=== PATIENT | male | born 1990 | race African-American/Black ===

== ENCOUNTER 2016-05-19 18:05 | Inpatient (IN) | payer MEDICARE, OTHER ==
[~2016-05-19] VITALS: Ht 162.6 cm; Wt 47.5 kg
[~2016-05-19 18:05] MED LIST: FISH1000 PO; FLAG250T PO; LAMI150 PO; LEVE500T10 PO; LEXI700T PO; RALTEGRAVIR PO; RANI150 PO; RITO100 PO; [UNRECOGNIZED DRUG - CODE] PO
[2016-05-19 18:10] VITALS: BP 135/72; PULSE 135; RESP 26; TEMP 98.8; O2SAT 98
[2016-05-19] MEDS ORDERED: ZIAG300T3 PO (18:19)
[2016-05-19] MEDS ORDERED: LAMI150 PO (18:19)
[2016-05-19] MEDS ORDERED: RITO100 PO (18:19)
[2016-05-19] MEDS ORDERED: FOSA PO (18:19)
[2016-05-19] MEDS ORDERED: LEVE500T8 PO (18:19)
[2016-05-19] MEDS ORDERED: SODIUM CHLOR 0.9% 1000 ML INJ 1,000 ML IV SCH (18:22)
--- NOTE | 2016-05-19 18:22 | PD ---
HPI Chief Complaint: Seizure Time Seen by Provider: 18:22 Travel History International Travel<30 days: No Contact w/Intl Traveler<30days: No Traveled to known affect area: No History of Present Illness HPI 25-year-old male presents to the emergency department via EMS after a witnessed seizure that lasted 5 minutes. Reports history of seizures. Per EMS the patient is a known FLAKKA user, per law enforcement. The patient is awake, alert, and oriented on arrival. He is restrained secondary to being combative on scene. Patient is HIV positive and has history of lymphoma. Patient denies drug use today. He reports smoking FLAKKA one week ago. He denies headache, lightheadedness, dizziness. Denies chest pain, shortness of breath, abdominal pain, nausea, vomiting. No other modifying factors or associated signs and symptoms. PFSH Past Medical History Autoimmune Disease: Yes Blood Disorders: Yes (bone marrow transplant) Anxiety: No Depression: No Cancer: Yes (HX OF LYMPHOMA) Cardiovascular Problems: No Chemotherapy: Yes Diminished Hearing: No Gastrointestinal Disorders: Yes Genitourinary: No Headaches: Yes Immune Disorder: Yes (HIV) Musculoskeletal: No Neurologic: Yes (siezures) Psychiatric: No Reproductive: No Respiratory: No Seizures: Yes Past Surgical History Abdominal Surgery: Yes (SPLEENECTOMY) AICD: No Arteriovenous Shunt: No Cardiac Surgery: No Ear Surgery: No Endocrine Surgery: No Eye Surgery: No Genitourinary Surgery: No Gynecologic Surgery: No Insulin Pump: No Joint Replacement: No Neurologic Surgery: No Oral Surgery: No Pacemaker: No Thoracic Surgery: No Other Surgery: Yes (BILATERAL LOWER LEG AND LEFT ARM AMPUTATION) Social History Alcohol Use: Yes (OCC) Tobacco Use: No Substance Use: Yes (SMOKES MARIJUANA, FLACCA) Allergies-Medications (Allergen,Severity, Reaction): Coded Allergies: Amoxicillin (Verified Allergy, Unknown, 05/19/16) Penicillin (Verified Allergy, Unknown, 05/19/16) Reported Meds & Prescriptions Reported Meds & Active Scripts Active Reported Norvir (Ritonavir) 100 Mg Cap 100 Mg PO BID Levetiracetam 500 Mg Tab 500 Mg PO DAILY Epivir (Lamivudine) 150 Mg Tab 150 Mg PO DAILY *Fill this 5 day prescription first and begin taking Epivir 12 hours after the first dose received in the Emergency Department as prescribed.* Lexiva (Fosamprenavir Calcium) 700 Mg Tab 1 Tab PO BID Ziagen (Abacavir Sulfate) 300 Mg Tab 300 Mg PO BID Hazardous agent; use appropriate precautions for handling & disposal. Review of Systems Except as stated in HPI: all other systems reviewed are Neg Physical Exam Narrative GENERAL: Well-nourished, well-developed male patient, in no acute distress SKIN: Warm and dry. HEAD: Atraumatic. Normocephalic. No facial droop noted. EYES: Pupils equal at 4 mm with brisk reaction. No scleral icterus. No injection or drainage. EOMI. PERRLA. ENT: Mucosa pink and moist. Airway patent. NECK: Trachea midline. CARDIOVASCULAR: Regular rate and rhythm. No murmur appreciated. RESPIRATORY: No accessory muscle use. Clear to auscultation. Breath sounds equal bilaterally. GASTROINTESTINAL: Abdomen soft, non-tender, nondistended. Hepatic and splenic margins not palpable. Bowel sounds are active 4 quadrants. MUSCULOSKELETAL: Partial amputation to bilateral lower extremities and left upper extremity. No obvious deformities. No clubbing. No cyanosis. No edema. NEUROLOGICAL: Awake and alert. Oriented 3. No obvious cranial nerve deficits. Motor grossly within normal limits. Normal speech. PSYCHIATRIC: Appropriate mood and affect; insight and judgment normal. Data Data Last Documented VS Vital Signs Date Time Temp Pulse Resp B/P Pulse Ox O2 Delivery O2 Flow Rate FiO2 05/19/16 21:42 102 18 151/81 99 Room Air 05/19/16 18:10 98.8 Orders Complete Blood Count With Diff (05/19/16 18:22) Basic Metabolic Panel (Bmp) (05/19/16 18:22) Alcohol (Ethanol) (05/19/16 18:22) Electrocardiogram (05/19/16 ) Ecg Monitoring (05/19/16 18:22) Iv Access Insert/Monitor (05/19/16 18:22) Oximetry (05/19/16 18:22) Sodium Chlor 0.9% 1000 Ml Inj (Ns 1000 M (05/19/16 18:22) Sodium Chloride 0.9% Flush (Ns Flush) (05/19/16 18:30) Restraints Violent (05/19/16 18:47) Creatine Kinase (Cpk) (05/19/16 20:36) Ct Brain W/O Iv Contrast(Rout) (05/19/16 ) Admit Order (Ed Use Only) (05/19/16 21:44) Admit To Inpatient (05/19/16 ) Vital Signs (Adult) Q4H (05/19/16 21:46) Neuro Checks Q4H (05/19/16 21:46) Activity Oob With Assistance (05/19/16 21:46) Mission Planner / Telemetry .CONTINUOUS (05/19/16 21:46) Sodium Chlor 0.9% 1000 Ml Inj (Ns 1000 M (05/19/16 21:46) Sodium Chloride 0.9% Flush (Ns Flush) (05/19/16 22:00) Sodium Chloride 0.9% Flush (Ns Flush) (05/20/16 09:00) Basic Metabolic Panel (Bmp) (05/20/16 06:00) Complete Blood Count With Diff (05/20/16 06:00) Resp Oxygen Johnny C Titrat 1-4 L (05/19/16 ) Case Management Consult (05/19/16 21:46) Naloxone Inj (Narcan Inj) (05/19/16 22:00) Inpatient Certification (05/19/16 ) Labs Laboratory Tests Test 05/19/16 18:31 White Blood Count 11.8 TH/MM3 Red Blood Count 4.10 MIL/MM3 Hemoglobin 10.4 GM/DL Hematocrit 34.5 % Mean Corpuscular Volume 84.2 FL Mean Corpuscular Hemoglobin 25.2 PG Mean Corpuscular Hemoglobin 30.0 % Concent Red Cell Distribution Width 14.6 % Platelet Count 284 TH/MM3 Mean Platelet Volume 10.3 FL Neutrophils (%) (Auto) 50.6 % Lymphocytes (%) (Auto) 39.0 % Monocytes (%) (Auto) 8.4 % Eosinophils (%) (Auto) 1.3 % Basophils (%) (Auto) 0.7 % Neutrophils # (Auto) 6.0 TH/MM3 Lymphocytes # (Auto) 4.6 TH/MM3 Monocytes # (Auto) 1.0 TH/MM3 Eosinophils # (Auto) 0.2 TH/MM3 Basophils # (Auto) 0.1 TH/MM3 CBC Comment DIFF FINAL Differential Comment Sodium Level 137 MEQ/L Potassium Level 3.3 MEQ/L Chloride Level 103 MEQ/L Carbon Dioxide Level 8.9 MEQ/L Anion Gap 25 MEQ/L Blood Urea Nitrogen 40 MG/DL Creatinine 5.83 MG/DL Estimat Glomerular Filtration 14 ML/MIN Rate Random Glucose 256 MG/DL Calcium Level 8.9 MG/DL Ethyl Alcohol Level LESS THAN 3 MG/DL MDM Medical Decision Making Medical Screen Exam Complete: Yes Emergency Medical Condition: Yes Medical Record Reviewed: Yes Differential Diagnosis Seizure, drug induced seizure, drug overdose Narrative Course 25-year-old male with history of seizures arrives via EMS after a witnessed seizure lasting approximately 5 minutes. Patient has known history of FLAKKA use and he denies at this time. Patient is alert and oriented to time of arrival. He was administered a total of 4 mg of Ativan or to arrival. 2016: CBC was signs of anemia consistent with passed laboratory findings. Potassium 3.3. Carbon dioxide point 8.9. BUN 40. Creatinine 5.83. GFR 14. Random glucose 256. Ethyl alcohol less than 3. I reviewed lab findings with Dr. Gee and she recommended for the patient to be admitted for observation if the patient agrees, and to draw CPK. CPK ordered. Patient agrees to be admitted. Call out to ROBYN. [id number]: I spoke with ROBYN Mane; report given and patient will be admitted. Diagnosis Primary Impression: Seizure disorder Additional Impression: Acute renal failure Qualified Code: N17.9 - Acute renal failure, unspecified acute renal failure type Admitting Information Admitting Physician Requests: Admit Isabel Vogel May 19, 2016 18:22
[2016-05-19] MEDS ORDERED: SODIUM CHLORIDE 0.9% FLUSH 5 ML FLUSH IVF PRN (18:30)
[2016-05-19 19:06] LABS: ANION GAP 25 MEQ/L (5-15); BICARBONATE 8.9 MEQ/L (21.0-32.0); BLOOD UREA NITROGEN 40 MG/DL (7-18); CHLORIDE 103 MEQ/L (98-107); GLOMERULAR FILTRATION RATE 14 ML/MIN (>89); POTASSIUM 3.3 MEQ/L (3.5-5.1); SODIUM (NA) 137 MEQ/L (136-145)
[2016-05-19 19:07] VITALS: BP 111/63; PULSE 113; RESP 20; O2SAT 95
[2016-05-19 19:09] LABS: BASOPHIL # 0.1 TH/MM3 (0-0.2); BASOPHIL % 0.7 % (0.0-2.0); EOSINOPHIL # 0.2 TH/MM3 (0-0.4); EOSINOPHIL % 1.3 % (0.0-4.0); HEMATOCRIT 34.5 % (39.0-51.0); HEMO FLAGS DIFF FINAL; LYMPHOCYTE # 4.6 TH/MM3 (1.0-4.8); MEAN CELL VOLUME 84.2 FL (80.0-100.0); MEAN CORPUSCULAR HEMOGLOBIN 25.2 PG (27.0-34.0); MONO % 8.4 % (0.0-8.0); NEUT % 50.6 % (16.0-70.0); PLATELET COUNT 284 TH/MM3 (150-450); RED CELL DISTRIBUTION WIDTH 14.6 % (11.6-17.2); WHITE BLOOD COUNT 11.8 TH/MM3 (4.0-11.0)
[2016-05-19 21:42] VITALS: BP 151/81; PULSE 102; RESP 18; O2SAT 99
[2016-05-19 22:00] VITALS: O2SAT 97
[2016-05-19] MEDS ORDERED: SODIUM CHLORIDE 0.9% FLUSH 5 ML FLUSH FLUSH PRN (22:00)
[2016-05-19] MEDS ORDERED: NALOXONE HCL 0.4 MG/ML AMP IV PRN (22:00)
[2016-05-19] MEDS: SODIUM CHLOR 0.9% 1000 ML INJ 1,000 ML IV SCH (22:28)
--- NOTE | 2016-05-19 23:19 | RADRPT ---
EXAM DATE/TIME: 05/19/2016 22:54 [facility] COMPARISON: CT BRAIN W/O CONTRAST, November 14, 2015, 21:58. INDICATIONS : Seizures. RADIATION DOSE: 36.54 CTDIvol (mGy) MEDICAL HISTORY : None SURGICAL HISTORY : None. ENCOUNTER: Initial ACUITY: 1 day PAIN SCALE: 5/10 LOCATION: cranial TECHNIQUE: Multiple contiguous axial images were obtained of the head. Using automated exposure control and adj ustment of the mA and/or kV according to patient size, radiation dose was kept as low as reasonably a chievable to obtain optimal diagnostic quality images. FINDINGS: CEREBRUM: The ventricles are normal for age. No evidence of midline shift, mass lesion, hemorrhage or acute in farction. No extra-axial fluid collections are seen. POSTERIOR FOSSA: The cerebellum and brainstem are intact. The 4th ventricle is midline. The cerebellopontine angle i s unremarkable. EXTRACRANIAL: The visualized portion of the orbits is intact. SKULL: The calvaria is intact. No evidence of skull fracture. CONCLUSION: No acute disease. Torito English MD on May 19, 2016 at 23:17 Board Certified Radiologist. This report was verified electronically.
[2016-05-19 23:27] LABS: CKMB 1.3 NG/ML (0.5-3.6)
[2016-05-20] VITALS (12 sets, daily range): BP systolic 107–148; BP diastolic 66–89; PULSE 73–106; RESP 18; TEMP 97.1–98.8; O2SAT 92–100
[2016-05-20] MEDS ORDERED: ACETAMINOPHEN 325 MG TAB PO ONE (02:45)
[2016-05-20] MEDS ORDERED: POTASSIUM CHLORIDE 20 MEQ CONTROLLED RELEASE TAB PO ONE (03:00)
--- NOTE | 2016-05-20 05:53 | HHI.HP ---
HPI Service [facility] Primary Care Physician Seu Olivas MD Admission Diagnosis SEIZURES, ELEVATED BUN/CR Diagnoses: (1) Seizure disorder (2) Rhabdomyolysis (3) Acute on chronic renal failure (4) Anemia of chronic illness (5) Leukocytosis (6) Hypokalemia Chief Complaint: Seizure activity Travel History International Travel<30 Days: No Contact w/Intl Traveler <30 Da: No Traveled to Known Affected Are: No History of Present Illness Mr. Yu is a 25 year-old male with a history of lymphoma, HIV, CKD, and seizures who presented to the emergency room for evaluation of a witnessed seizure that lasted about [address] is negative for acute disease. Multiple electrolyte abnormalities noted on blood work. He is admitted for observation. The patient is seen in his hospital room; he states that he was walking to the store and had a seizure. Last seizure occurred about a year ago. He adamantly denies Flakka use and states he is angry that anybody suggests he has ever done anything like that. Sterling through this interview, he shuts down and stops talking and covers his head with a blanket. Patient denies dizziness, shortness of breath, chest pain, syncope, black or tarry stools, diarrhea, nausea, vomiting, hematuria, dysuria. . 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 Reported Medications Reported Meds & Active Scripts Active Reported Norvir (Ritonavir) 100 Mg Cap 100 Mg PO BID Levetiracetam 500 Mg Tab 500 Mg PO DAILY Epivir (Lamivudine) 150 Mg Tab 150 Mg PO DAILY *Fill this 5 day prescription first and begin taking Epivir 12 hours after the first dose received in the Emergency Department as prescribed.* Lexiva (Fosamprenavir Calcium) 700 Mg Tab 1 Tab PO BID Ziagen (Abacavir Sulfate) 300 Mg Tab 300 Mg PO BID Hazardous agent; use appropriate precautions for handling & disposal. . Allergies: Coded Allergies: Amoxicillin (Verified Allergy, Unknown, 05/19/16) Penicillin (Verified Allergy, Unknown, 05/19/16) Active Ordered Medications Current Medications Sodium Chloride (NS 1000 ml Inj) 1,000 ml @ 1,000 mls/hr Q1H IV Last administered on 05/19/16 18:36; Start 05/19/16 at 18:22; Stop 05/19/16 at 19:21 ; Status DC IV Flush 2 ml 2 ml UNSCH PRN IVF FLUSH AFTER USING IV ACCESS; Start 05/19/16 at 18:30; Stop 05/19/16 at 21:52; Status DC Sodium Chloride (NS 1000 ml Inj) 1,000 ml @ 100 mls/hr Q10H IV Last administered on 05/19/16 22:28; Start 05/19/16 at 21:46 IV Flush (NS Flush) 2 ml UNSCH PRN FLUSH FLUSH AFTER USING IV ACCESS; Start at 22:00 IV Flush (NS Flush) 2 ml BID FLUSH ; Start 05/20/16 at 09:00 Naloxone HCl (Narcan Inj) 0.4 mg UNSCH PRN IV SEE LABEL COMMENTS; Start at 22:00 Levetriacetam (Keppra) 500 mg DAILY PO ; Start 05/20/16 at 09:00 Acetaminophen (Tylenol) 650 mg ONCE ONCE PO Last administered on 05/20/16 02: 52; Start 05/20/16 at 02:45; Stop 05/20/16 at 02:46; Status DC Lorazepam (Ativan Inj) 1 mg Q15M PRN IV PUSH sezirue; Start 05/20/16 at 03:00 Potassium Chloride (KCl) 20 meq ONCE ONCE PO Last administered on 05/20/16 02 :57; Start 05/20/16 at 03:00; Stop 05/20/16 at 03:01; Status DC . Family History Mother from leukemia, AIDS Fathers history is unknown Siblings are healthy and living . Social History Tobacco: Denies Alcohol: Occasional - a couple of beer occasionally Illicit Drugs: Marijuana and Flakka (per EMR) - patient denies any illicit drug use during our visit . Physical Exam Vital Signs Vital Signs Date Time Temp Pulse Resp B/P Pulse Ox O2 Delivery O2 Flow Rate FiO2 05/20/16 04:00 97.7 73 18 107/69 100 05/20/16 02:10 97.7 78 18 111/66 98 05/20/16 02:04 98 05/20/16 01:20 106 18 148/78 99 Room Air 05/19/16 22:00 97 05/19/16 21:42 102 18 151/81 99 Room Air 05/19/16 19:07 113 20 111/63 95 Room Air 05/19/16 18:10 98.8 135 26 135/72 98 Physical Exam GENERAL: This is a small, thin patient, who appears guarded in general in his interactions with examiner. Ammonia smell in room. SKIN: No rashes, ecchymoses. Cool and dry. HEAD: Atraumatic. Normocephalic. EYES: No scleral icterus. No injection or drainage. ENT: Nose without bleeding, purulent drainage. NECK: Trachea midline. CARDIOVASCULAR: Regular rate and rhythm without murmurs, gallops, or rubs. RESPIRATORY: Clear to auscultation. Breath sounds equal bilaterally. No wheezes , rales, or rhonchi. GASTROINTESTINAL: Abdomen soft, non-tender, nondistended. No guarding. MUSCULOSKELETAL: Bilateral below the knee amputations. Left below the elbow amputation. NEUROLOGICAL: Awake and alert. Motor and sensory grossly within normal limits. Normal speech. . Laboratory Laboratory Tests Test 05/19/16 05/19/16 18:31 21:35 White Blood Count 11.8 Red Blood Count 4.10 Hemoglobin 10.4 Hematocrit 34.5 Mean Corpuscular Volume 84.2 Mean Corpuscular Hemoglobin 25.2 Mean Corpuscular Hemoglobin 30.0 Concent Red Cell Distribution Width 14.6 Platelet Count 284 Mean Platelet Volume 10.3 Neutrophils (%) (Auto) 50.6 Lymphocytes (%) (Auto) 39.0 Monocytes (%) (Auto) 8.4 Eosinophils (%) (Auto) 1.3 Basophils (%) (Auto) 0.7 Neutrophils # (Auto) 6.0 Lymphocytes # (Auto) 4.6 Monocytes # (Auto) 1.0 Eosinophils # (Auto) 0.2 Basophils # (Auto) 0.1 CBC Comment DIFF FINAL Differential Comment Sodium Level 137 Potassium Level 3.3 Chloride Level 103 Carbon Dioxide Level 8.9 Anion Gap 25 Blood Urea Nitrogen 40 Creatinine 5.83 Estimat Glomerular Filtration 14 Rate Random Glucose 256 Calcium Level 8.9 Ethyl Alcohol Level LESS THAN 3 Total Creatine Kinase 2646 Creatine Kinase MB 1.3 Creatine Kinase MB % 0.0 Result Diagram: 05/19/16 1831 05/19/16 1831 Imaging Last Impressions Head CT 05/19/16 2310 Signed Impressions: Service Date/Time: Thursday, May 19, 2016 22:54 - CONCLUSION: No acute disease. Torito English MD . Assessment and Plan Problem List: (1) Seizure disorder ICD Code: 780.39 Status: Chronic (2) Rhabdomyolysis ICD Code: M62.82 Status: Acute (3) Acute on chronic renal failure ICD Code: N17.9 Status: Acute (4) Anemia of chronic illness ICD Code: D63.8 Status: Chronic (5) Leukocytosis ICD Code: D72.829 Status: Chronic (6) Hypokalemia ICD Code: E87.6 Status: Acute Assessment and Plan Mr. Yu is a 25 year-old male with a history of lymphoma, HIV, CKD, and seizures who presented to the emergency room for evaluation of a witnessed seizure that lasted about [address] is negative for acute disease. Multiple electrolyte abnormalities noted on blood work. He is admitted for observation. Seizure disorder - continue Keppra 500 mg daily - Ativan 1 mg IV every 15 minutes as needed for seizure - Seizure precautions - Blood ETOH < 3 - Neurochecks every 4 hours - Vital signs every 4 hours - Consult neurology Rhabdomyolysis - CK 2646 - IV fluid hydration - Will recheck in a.m. and follow trends in levels Acute on chronic renal failure - BUN elevated at 40, creatinine high at 5.83, estimated GFR low at 14 - Normal saline at 100 cc per hour - Repeat BMP in a.m. and follow trends in renal indices - Avoid nephrotoxins - Consult nephrology Anemia, related to chronic illness - Hemoglobin 10.4 and hematocrit 34.5 on admission - Hemoglobin appears stable when compared to other hospital visits - Recheck CBC in a.m. and follow trends Leukocytosis chronic - Admission WBC 11.8 with neutrophilia- stable when compared to other hospital visits - Recheck CBC in a.m. and follow trends Hypokalemia - Admission potassium is 3.3 - KCl 20 meq x one dose - Recheck BMP in a.m.; follow K+ level and replace as needed DVT prophylaxis Heparin 5000 units subq q8h Written by Ann Morales, acting as scribe for Dr. Bedoya on 05/20/16 at 05:45. .The documentation accurately reflects the work performed [id number] by me on 05/20/16 at 0545 Discussed Condition With ER physician, patient, and RN Physician Certification 2 Midnight Certification Type: Admission for Inpatient Services Order for Inpatient Services The services are ordered in accordance with Medicare regulations or non- Medicare payer requirements, as applicable. In the case of services not specified as inpatient-only, they are appropriately provided as inpatient services in accordance with the 2-midnight benchmark. Estimated LOS (days): 3 days is the estimated time the patient will need to remain in the hospital, assuming treatment plan goals are met and no additional complications. Post-Hospital Plan: Not yet determined Ann Morales May 20, 2016 05:53 Unique Bedoya MD May 20, 2016 08:42
[2016-05-20 07:34] LABS: AUTOMATED NEUTROPHIL # 10.7 TH/MM3 (1.8-7.7); BASOPHIL # 0.1 TH/MM3 (0-0.2); BASOPHIL % 0.6 % (0.0-2.0); EOSINOPHIL # 0.1 TH/MM3 (0-0.4); EOSINOPHIL % 0.5 % (0.0-4.0); HEMATOCRIT 30.8 % (39.0-51.0); LYMPH % 23.1 % (9.0-44.0); LYMPHOCYTE # 3.6 TH/MM3 (1.0-4.8); MEAN CELL VOLUME 80.7 FL (80.0-100.0); MEAN CORPUSCULAR HEMOGLOBIN 24.8 PG (27.0-34.0); MEAN CORPUSCULAR HGB CONC 30.8 % (32.0-36.0); MONO % 7.6 % (0.0-8.0); NEUT % 68.2 % (16.0-70.0); PLATELET COUNT 275 TH/MM3 (150-450); RED BLOOD COUNT 3.82 MIL/MM3 (4.50-5.90); RED CELL DISTRIBUTION WIDTH 14.1 % (11.6-17.2); WHITE BLOOD COUNT 15.7 TH/MM3 (4.0-11.0)
[2016-05-20 07:46] LABS: HEMO FLAGS AUTO DIFF
[2016-05-20 08:21] LABS: BICARBONATE 20.7 MEQ/L (21.0-32.0); POTASSIUM 3.5 MEQ/L (3.5-5.1)
[2016-05-20 08:44] LABS: CKMB 4.6 NG/ML (0.5-3.6)
[2016-05-20] MEDS ORDERED: levETIRAcetam 500 MG TAB PO SCH ×2 (09:00→21:00)
[2016-05-20 09:10] LABS: ACANTHOCYTES OCC (NORMAL); OVALOCYTES 1+ (NORMAL); TARGET CELLS 1+ (NORMAL)
[2016-05-20 09:11] LABS: PLATELET ESTIMATE SMEAR NORMAL (NORMAL); PLATELET MORPHOLOGY NORMAL (NORMAL); SCAN/DIFF AUTO DIFF CONFIRMED
[2016-05-20 09:15] LABS: ANION GAP 15 MEQ/L (5-15); AST (GOT) 52 U/L (15-37); BICARBONATE 16.7 MEQ/L (21.0-32.0); BLOOD UREA NITROGEN 38 MG/DL (7-18); CHLORIDE 108 MEQ/L (98-107); GLOMERULAR FILTRATION RATE 17 ML/MIN (>89); MAGNESIUM 2.7 MG/DL (1.5-2.5); POTASSIUM 3.5 MEQ/L (3.5-5.1); SODIUM (NA) 140 MEQ/L (136-145)
--- NOTE | 2016-05-20 09:21 | HHI.PR ---
Subjective Remarks f/u; seizure resting comfortably with no distress. denies pain. Objective Vitals Vital Signs Date Time Temp Pulse Resp B/P Pulse Ox O2 Delivery O2 Flow Rate FiO2 05/20/16 08:00 98.6 101 18 125/86 92 05/20/16 04:00 97.7 73 18 107/69 100 05/20/16 02:10 97.7 78 18 111/66 98 05/20/16 02:04 98 05/20/16 01:20 106 18 148/78 99 Room Air 05/19/16 22:00 97 05/19/16 21:42 102 18 151/81 99 Room Air 05/19/16 19:07 113 20 111/63 95 Room Air 05/19/16 18:10 98.8 135 26 135/72 98 I/O 05/19/16 05/19/16 05/19/16 05/20/16 05/20/16 05/20/16 07:00 15:00 23:00 07:00 15:00 23:00 Intake Total 200 ml 241 ml Output Total 300 ml Balance -100 ml 241 ml Intake Oral 200 ml IV Total 241 ml Output Urine Total 300 ml Result Diagram: 05/20/16 0615 05/20/16 0615 Imaging Last Impressions Head CT 05/19/16 2310 Signed Impressions: Service Date/Time: Thursday, May 19, 2016 22:54 - CONCLUSION: No acute disease. Torito English MD Objective Remarks GENERAL: This is a well-nourished, well-developed patient, in no apparent distress. CARDIOVASCULAR: Regular rate and irregular rhythm without murmurs, gallops, or rubs. RESPIRATORY: Clear to auscultation. Breath sounds equal bilaterally. No wheezes , rales, or rhonchi. GASTROINTESTINAL: Abdomen soft, non-tender, nondistended. Normal, active bowel sounds MUSCULOSKELETAL: s/p bilateral BKA NEURO: Alert & Oriented x4 to person, place, time, situation. Moves all ext x4 Procedures none Medications and IVs Current Medications Sodium Chloride (NS 1000 ml Inj) 1,000 ml @ 1,000 mls/hr Q1H IV Last administered on 05/19/16t 18:36; Start 05/19/16 at 18:22; Stop 05/19/16 at 19:21 ; Status DC IV Flush 2 ml 2 ml UNSCH PRN IVF FLUSH AFTER USING IV ACCESS; Start 05/19/16 at 18:30; Stop 05/19/16 at 21:52; Status DC Sodium Chloride (NS 1000 ml Inj) 1,000 ml @ 100 mls/hr Q10H IV Last administered on 05/19/16 22:28; Start 05/19/16 at 21:46 IV Flush (NS Flush) 2 ml UNSCH PRN FLUSH FLUSH AFTER USING IV ACCESS; Start at 22:00 IV Flush (NS Flush) 2 ml BID FLUSH ; Start 05/20/16 at 09:00 Naloxone HCl (Narcan Inj) 0.4 mg UNSCH PRN IV SEE LABEL COMMENTS; Start at 22:00 Levetriacetam (Keppra) 500 mg DAILY PO ; Start 05/20/16 at 09:00 Acetaminophen (Tylenol) 650 mg ONCE ONCE PO Last administered on 05/20/16 02: 52; Start 05/20/16 at 02:45; Stop 05/20/16 at 02:46; Status DC Lorazepam (Ativan Inj) 1 mg Q15M PRN IV PUSH sezirue; Start 05/20/16 at 03:00 Potassium Chloride (KCl) 20 meq ONCE ONCE PO Last administered on 05/20/16 02 :57; Start 05/20/16 at 03:00; Stop 05/20/16 at 03:01; Status DC Heparin Sodium (Porcine) (Heparin Inj) 5,000 units Q8H SQ ; Start 05/20/16 at 08 :00 A/P Assessment and Plan A/P Seizure disorder - continue Keppra 500 mg daily - Ativan 1 mg IV every 15 minutes as needed for seizure - Seizure precautions - Neuro checks every 4 hours - Vital signs every 4 hours - Consulted neurology Rhabdomyolysis - continue IV fluid hydration - Will recheck in a.m. and follow trends in levels Acute on chronic renal failure - Normal saline at 125 cc per hour - Repeat BMP in a.m. and follow trends in renal indices - Avoid nephrotoxins - Consulted nephrology Anemia, related to chronic illness - Hemoglobin appears stable when compared to other hospital visits - Recheck CBC in a.m. and follow trends Leukocytosis chronic - Recheck CBC in a.m. and follow trends Hypokalemia -replaced - Recheck BMP in a.m.; follow K+ level and replace as needed DVT prophylaxis Heparin 5000 units subq q8h Amy Singh MD May 20, 2016 09:21
[2016-05-20 09:24] LABS: ALKALINE PHOSPHATASE 73 U/L (45-117); ALT (GPT) 26 U/L (12-78); TOTAL BILIRUBIN ADULT 0.2 MG/DL (0.2-1.0)
[2016-05-20] MEDS: HEPARIN SODIUM - SQ 10,000 UNITS/ML VIAL SQ SCH ×2 (09:52→16:52)
[2016-05-20] MEDS: SODIUM CHLORIDE 0.9% FLUSH 5 ML FLUSH FLUSH SCH ×2 (09:52→21:00)
--- NOTE | 2016-05-20 12:20 | MB ---
cc: ELVI ISSA MD DATE OF CONSULTATION: 05/20/2016 REASON FOR CONSULTATION Breakthrough seizure. HISTORY OF PRESENT ILLNESS Mr. Yu is a 25-year-old -[place] male with past medical history of seizures. He had sustained a breakthrough witnessed seizure lasting approximately 5 minutes as per the ER records. He has known history of flakka use. The patient's last seizure was about a year ago. During the encounter he was trying to avoid talking to me and then he stopped talking and covers his head with the blanket and turns his back to me, but he states that he has no family history of seizure and he has diagnosed with seizures when he was about 14 years of age and he is on Keppra, not certain about the dose. He has bilateral amputation of the lower extremities and left upper extremity. REVIEW OF SYSTEMS A 12-point review of systems is negative except for what is mentioned in the HPI. PAST MEDICAL HISTORY 1. Non-Hodgkin's lymphoma, status post bone marrow transplantation and chemotherapy, diagnosed at the age of 8 years. 2. HIV, perinatally acquired. 3. Seizures. 4. History of meningitis. 5. History of septic shock with profound necrosis of extremities. 6. Chronic anemia. 7. Hyperlipidemia. 8. CKD. PAST SURGICAL HISTORY 1. Bilateral BKA. 2. Left arm amputation below elbow. MEDICATIONS 1. Norvir. 2. Keppra 500 mg twice daily. 3. Epivir. 4. Lexiva. 5. Ziagen. ALLERGIES 1. AMOXICILLIN. 2. PENICILLIN. FAMILY HISTORY Mother of leukemia and AIDS. Father's history is unknown. Siblings are healthy and living. SOCIAL HISTORY Denies tobacco. Occasional alcohol use. Illicit drugs: Marijuana and flakka per the medical records. PHYSICAL EXAMINATION GENERAL: The patient tries to avoid interaction during the encounter. HEENT: Atraumatic, normocephalic. Intact hearing. Intact vision. NECK: Trachea in the midline. No carotid bruit. HEART: Regular rate and rhythm. LUNGS: Clear to auscultation. No wheezes. EXTREMITIES: Bilateral below-knee amputation, left below-elbow amputation. NEUROLOGIC: Awake, alert, oriented to time, person and place. Pupils are equally reacting to light. Intact extraocular motility. Fluent speech. No dysarthria. Assessment of the motor function can only be obtained on the right upper extremity because of the amputation of the three other extremities. Sensation is intact over the right upper extremity and the other extremities. Intact cerebellar function on the right upper extremity. Neck supple. No signs of meningeal irritation. LABORATORY White blood cell count 15.7, hemoglobin 9.5, platelet count 275. Ethyl alcohol less than 3.Sodium 137, potassium 3.5, BUN 38, creatinine 5.18, calcium 8.3.Total CK 6841. IMAGING - Head CT scan with no acute intracranial abnormality. DIAGNOSTIC IMPRESSION 1. Seizure disorder with breakthrough seizures. 2. Rhabdomyolysis. 3. Acute on chronic renal failure. 4. Hypokalemia. 5. History of meningitis. 6. 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 7. Non-Hodgkin's lymphoma. 8. HIV. PLAN 1. Continue Keppra 500 mg twice daily. 2. Seizure precautions. 3. Ativan 1 mg for seizures lasting more than 3 minutes. 4. Neuro-checks q.4 hourly. 5. EEG. Thank you for the opportunity to participate in the care of your patient. MD KALEY Leggett/DARY /9:35 AM /12:03 PM MTDD
--- NOTE | 2016-05-20 16:37 | EKG ---
Date Performed: 05/19/2016 Time Performed: 18:38:43 PTAGE: 25 years EKG: SINUS TACHYCARDIA VOLTAGE CRITERIA FOR LVH NONSPECIFIC T-WAVE ABNORMALITY Since previous tr acing, no significant change noted ABNORMAL ECG PREVIOUS TRACING : 11/29/2008 09.03 DOCTOR: Chuy Zepeda Interpretating Date/Time 05/20/2016 16:36:54
--- NOTE | 2016-05-20 18:51 | MB ---
cc: DIONTE ABERNATHY MD DATE OF CONSULTATION 05/20/16 REASON FOR CONSULTATION Elevated BUN and creatinine for evaluation. HISTORY OF PRESENT ILLNESS This is a 25-year-old male with past medical history of peripheral vascular disease, history of HIV, lymphoma, chronic kidney disease, seizure disorder who was admitted to the hospital with seizure. I was called to see the patient because of elevated BUN and creatinine. The patient has known history of chronic kidney disease. His creatinine was 3.7 in October of last year and he off and on has acute kidney injury. 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 As per patient, he is just following with Dr. ZUNIGA, infectious disease, for his HIV. The patient has history of seizure and he was admitted for an episode of seizure which was witnessed and lasted for five minutes. The patient has been seen by neurology. He denies any nausea or vomiting. There is no history of diarrhea. He denies any dysuria, hematuria. The patient has a history of losing both his legs and left arm and this all happened in 2002. According to him, he had some kind of circulation problem at that time. She denies using any drugs, but in his history it is written that he has been using marijuana and Flakka off and on. His creatinine was found to be 5.8 and it is 5.1 now with a GFR of 16-17. He had some headache before he got the seizure. He denies any dizziness and does not have any shortness of breath. PAST MEDICAL HISTORY 1. HIV 2. History of lymphoma 3. Seizure disorder, 4. Chronic kidney disease, 5. Chronic anemia, 6. Peripheral vascular disease 7. History of non-Hodgkin's lymphoma with bone marrow transplant. PAST SURGICAL HISTORY Bilateral below-knee amputation, left arm below-elbow amputation. REVIEW OF SYSTEMS Denies any history of fever. He had some headache before he got the seizure. There is no history of dizziness. No shortness of breath. No chest pain. No palpitation. When he has seizure, he lost consciousness for a few minutes. He denies any history of diarrhea. No dysuria, hematuria or difficulty in passing urine. FAMILY HISTORY The mother in early 40s, possibly had AIDS and leukemia. Father's history is not known. According to the patient, his brothers and sisters are all healthy and normal. SOCIAL HISTORY Lives with his grandmother and occasionally drinks beer. There is no history of smoking, but according to the chart he has been using marijuana and Flakka. ALLERGIES AMOXICILLIN PENICILLIN MEDICATIONS Currently, 1. IV fluid Normal saline AT 125 an hour. 2. Keppra 500 mg once a day. 3. Heparin 5000 units subcu 8 h 4. 81 as needed. PHYSICAL EXAMINATION GENERAL: The patient is awake, alert. He is not in acute distress. VITAL SIGNS: Blood pressure 130/80, temperature 97.1, oxygen saturation 96-97%. HEENT: Pupils equally reacting to light. Nonicteric sclerae, conjunctivae pale. NECK: Supple. JVD is not elevated. LUNGS: The patient has bilateral good air entry. No wheezing. HEART: S1, S2, regular rhythm. ABDOMEN: Soft, lax, slightly distended, nontender. EXTREMITIES: He has both below-knee amputation and left arm he has below elbow amputation. LABORATORY DATA WBC count is 15.7, hemoglobin 9.5, platelet count of 275, neutrophils 68.2%, sodium 137. Potassium 3.5, chloride 105, bicarb 20.7, BUN 38, creatinine 5.1. Calcium is 8.3. Magnesium is 2.7, AST is 52, ALT is 26, creatinine kinase is 6841, MB is 4.6, INR is 0.9. Urinalysis none done recently. Toxicology screen showing Urecholine level was less than three. His last CD-4 cell count was 451 but this was in 2014. IMAGING STUDIES The patient had CT scan of the brain done on admission and it shows that he has no acute disease. ASSESSMENT/PLAN 1. Seizure. 2. Chronic kidney disease, advanced renal failure 3. HIV 4. Anemia. 5. History of lymphoma and bone marrow transplant 6, Elevated CPK, rhabdomyolysis. The patient has a very high CPK level and it has been increasing. 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 He had some proteinuria in the past. I will recheck his urinalysis, get the ultrasound of the kidneys. I agree with continuing the hydration. There is possibly an element of acute kidney injury because of rhabdomyolysis and hopefully we will have some improvement. I did discuss with the patient about the possibility of dialysis if we do not see any improvement or the kidney function gets worse. At present, there is no urgent need for dialysis. I will follow the patient closely and have further recommendation for him as needed. Thank you for the consultation. MD SHEILA Johnson/ /5:52 PM /6:34 PM
--- NOTE | 2016-05-20 19:34 | MG ---
cc: RITA LANDERS M.D. Lab No: Date: 05/20/2016 Age: Sex: M Race: DATE OF 1990, 25 years old. EEG NUMBER [id number] ROOM 724. REFERRING PHYSICIAN Dr. Riley. Hyperventilation. Photic stimulation Awake, drowsy, asleep study. CT no acute disease. Admitted for witnessed seizure. History of headaches, Lyme disease, alcohol and substance use. HIV. MEDICATIONS Keppra. DESCRIPTION OF RECORD The patient has overall slowing, quite a bit of artifact seen but overall slowing predominately of theta frequency. At times he does have normal alpha rhythm when he does not move much. Overall at 8 Hz 20 microvolts. EKG looks sinus. No epileptic activity seen but quite a bit of artifact. Photic stimulation good posterior driving response. Hyperventilation, some artifact but no appreciable epileptic activity. Overall when he is awake EEG looks normal without any epileptiform features. Clinical correlation. MD GRETA Whitley/REMBERTO /6:54 PM /7:21 PM
[2016-05-20] MEDS: levETIRAcetam 250 MG TAB PO SCH (22:15)
[2016-05-21] VITALS (10 sets, daily range): BP systolic 110–151; BP diastolic 72–102; PULSE 70–99; RESP 16–20; TEMP 97.1–98.9; O2SAT 97–100
[2016-05-21] MEDS: HEPARIN SODIUM - SQ 10,000 UNITS/ML VIAL SQ SCH ×3 (00:14→15:41)
[2016-05-21 03:09] LABS: BLOOD, URINE MOD (NEG); GLUCOSE,URINE NEG (NEG); KETONE, URINE 10 mg/dL (NEG); MUCUS URINE FEW /lpf (OCC); NITRITE,URINE NEG (NEG); PH, URINE 5.5 (5.0-8.5); RENAL EPITHELIAL CELLS <1 /hpf; URINE COLOR COLORLESS (YELLW/STRAW)
[2016-05-21 03:13] LABS: COMMENT (UR) CULT NOT INDICATED; CULTURE IF INDICATED CULT NOT INDICATED
[2016-05-21] MEDS: SODIUM CHLOR 0.9% 1000 ML INJ 1,000 ML IV SCH ×6 (05:25→23:10)
[2016-05-21 07:36] LABS: AUTOMATED NEUTROPHIL # 5.2 TH/MM3 (1.8-7.7); BASOPHIL # 0.1 TH/MM3 (0-0.2); BASOPHIL % 0.6 % (0.0-2.0); EOSINOPHIL # 0.1 TH/MM3 (0-0.4); EOSINOPHIL % 1.3 % (0.0-4.0); HEMATOCRIT 27.6 % (39.0-51.0); HEMO FLAGS DIFF FINAL; LYMPH % 33.6 % (9.0-44.0); LYMPHOCYTE # 3.1 TH/MM3 (1.0-4.8); MEAN CELL VOLUME 80.5 FL (80.0-100.0); MEAN CORPUSCULAR HEMOGLOBIN 25.1 PG (27.0-34.0); MEAN CORPUSCULAR HGB CONC 31.1 % (32.0-36.0); NEUT % 55.5 % (16.0-70.0); PLATELET COUNT 255 TH/MM3 (150-450); RED BLOOD COUNT 3.43 MIL/MM3 (4.50-5.90); RED CELL DISTRIBUTION WIDTH 14.5 % (11.6-17.2); WHITE BLOOD COUNT 9.3 TH/MM3 (4.0-11.0)
[2016-05-21 08:03] LABS: BICARBONATE 16.2 MEQ/L (21.0-32.0); POTASSIUM 3.8 MEQ/L (3.5-5.1)
[2016-05-21 08:17] LABS: CALCIUM-PROTEIN CORRECTED 7.6 MG/DL (8.5-10.1)
[2016-05-21 08:51] LABS: CKMB 3.9 NG/ML (0.5-3.6)
[2016-05-21] MEDS: levETIRAcetam 250 MG TAB PO SCH ×2 (08:55→20:47)
[2016-05-21] MEDS: SODIUM CHLORIDE 0.9% FLUSH 5 ML FLUSH FLUSH SCH ×2 (08:56→20:53)
--- NOTE | 2016-05-21 09:48 | RADRPT ---
EXAM DATE/TIME: 05/21/2016 08:13 [facility] COMPARISON: No previous studies available for comparison. INDICATIONS : Abnormal labs. MEDICAL HISTORY : Lymphoma. Meningitis. Seizures. Liver disease. HIV. Bone marrow transplant. Chronic kidney disease. Chronic anemia. Septic shock with profound necrosis of the extremities. SURGICAL HISTORY : Splenectomy. Bilateral below knee amputation. Left arm amputation. ENCOUNTER: Initial ACUITY: 1 day PAIN SCORE: 0/10 LOCATION: Bilateral flank MEASUREMENTS: RIGHT KIDNEY: 7.9 x 4.5 x 3.7 cm LEFT KIDNEY: 7.4 x 4.0 x 3.7 cm FINDINGS: Bilateral kidneys are small with echogenic cortex and loss of cortical medullary junction consistent with chronic renal parenchymal disease. No evidence of hydronephrosis or mass. Bladder appears intact . CONCLUSION: Atrophic kidneys secondary to renal parenchymal disease with no obstructive uropathy Gilmar Benton MD on May 21, 2016 at 9:45 Board Certified Radiologist. This report was verified electronically.
--- NOTE | 2016-05-21 10:14 | HHI.PR ---
Subjective Remarks Patient denies any symptoms states had a seizure episode while ultrasound being performed - however RN states that ultrasound personnel did not report anything to her denies cp/sob Patient c/o headache and nausea to RN Creatinine trending down low calcium ck trending down Objective Vitals Vital Signs Date Time Temp Pulse Resp B/P Pulse Ox O2 Delivery O2 Flow Rate FiO2 05/21/16 09:54 99 21 05/21/16 04:00 98.7 81 18 136/98 100 05/21/16 00:00 98.5 99 18 122/89 100 05/20/16 20:24 84 05/20/16 20:00 98.8 88 18 121/89 98 05/20/16 18:16 97 21 05/20/16 16:00 97.1 99 18 130/82 97 05/20/16 12:00 97.5 95 18 116/76 96 I/O 05/20/16 05/20/16 05/20/16 05/21/16 05/21/16 05/21/16 07:00 15:00 23:00 07:00 15:00 23:00 Intake Total 200 ml 931 ml 120 ml 2094 ml Output Total 300 ml 700 ml 250 ml 1640 ml Balance -100 ml 231 ml -130 ml 454 ml Intake Oral 200 ml 120 ml 200 ml IV Total 931 ml 1894 ml Output Urine Total 300 ml 700 ml 250 ml 1640 ml Result Diagram: 05/21/16 0707 05/21/16 0707 Imaging Last Impressions Renal Ultrasound 05/21/16 0000 Signed Impressions: Service Date/Time: Saturday, May 21, 2016 08:13 - CONCLUSION: Atrophic kidneys secondary to renal parenchymal disease with no obstructive uropathy Gilmar Benton MD Head CT 05/19/16 2310 Signed Impressions: Service Date/Time: Thursday, May 19, 2016 22:54 - CONCLUSION: No acute disease. Torito English MD Objective Remarks GENERAL: This is a well-nourished, well-developed patient, in no apparent distress. CARDIOVASCULAR: Regular rate and irregular rhythm without murmurs, gallops, or rubs. RESPIRATORY: Clear to auscultation. Breath sounds equal bilaterally. No wheezes , rales, or rhonchi. GASTROINTESTINAL: Abdomen soft, non-tender, nondistended. Normal, active bowel sounds MUSCULOSKELETAL: s/p bilateral BKA Procedures none Medications and IVs Current Medications Medications (Trade) Dose Ordered Sig/Moose Route Start Time Stop Time Status Last Admin (NS 1000 ml Inj) 1,000 ml @ 125 mls/hr Q8H IV 05/19/16 21:46 05/21/16 05:25 (NS Flush) 2 ml UNSCH PRN FLUSH 05/19/16 22:00 (NS Flush) 2 ml BID FLUSH 05/20/16 09:00 (Narcan Inj) 0.4 mg UNSCH PRN IV 05/19/16 22:00 (Ativan Inj) 1 mg Q15M PRN IV PUSH 05/20/16 03:00 (Heparin Inj) 5,000 units Q8H SQ 05/20/16 08:00 05/21/16 08:55 (Keppra) 750 mg Q12HR PO 05/20/16 21:00 05/21/16 08:55 Urinary Catheter: No Vascular Central Line Catheter: No A/P Problem List: (1) Seizure disorder ICD Code: 780.39 Status: Chronic Plan: Patient to the medical floor, patient has known seizure disorder. Neurologic consulted Continue neuro checks every 4 hours On the Keppra 750 mg by mouth every 12 hours (2) Rhabdomyolysis ICD Code: M62.82 Status: Acute Plan: Due to seizure disorder and compulsions. Continue every fluid. CK initially trending up, today starts to trend down from 3361-8989. Continue to monitor CK daily and continue IV fluid administration. (3) Acute on chronic renal failure ICD Code: N17.9 Status: Acute Plan: Likely secondary to rhabdomyolysis Creatinine now starting to trend down. Creatinine down to 4.07 from 5.18. Patient with improved urine output. Continue to monitor BUN/creatinine, strict I's and O's and avoid nephrotoxins. Continue IV fluids (4) Anemia of chronic illness ICD Code: D63.8 Status: Chronic Plan: Hemoglobin seems to be stable when compared to other hospital visits. Continue to monitor and trend. (5) Leukocytosis ICD Code: D72.829 Status: Chronic Plan: Leukocytosis improving, likely elevated secondary to stress due to seizure activity. (6) Hypokalemia ICD Code: E87.6 Status: Resolved Plan: Potassium was replaced. Continue to monitor potassium. Level today is normal at 3.8. (7) Hypocalcemia ICD Code: E83.51 Status: Acute Plan: Protein corrected calcium is 7.6. I will replete with IV calcium chloride. Continue to monitor BMP (8) Headache ICD Code: R51 Status: Acute Plan: Patient complaining of headache to RN. I will place the patient on Tylenol as needed for headache. (9) Nausea ICD Code: R11.0 Status: Acute Plan: ? migraine headache. Will rX IV Zofran. (10) Anemia ICD Code: D64.9 Status: Acute Plan: With MCV in the lower side of normal. I will order iron studies and stool guaiac. Continue to monitor and trend CBC. (11) HIV (human immunodeficiency virus infection) ICD Code: Z21 Status: Acute Plan: Discussed with RN - will try to confirm medications to see if patient is being compliant with HIV medications. Patient does no know what medications he has been taking. Assessment and Plan GI prophylaxis: I will add PPI. DVT plexus: SCDs, continue heparin subcutaneously. Problem Qualifiers (1) Rhabdomyolysis: Qualified Code: M62.82 - Non-traumatic rhabdomyolysis (2) Headache: Qualified Code: R51 - Nonintractable headache, unspecified chronicity pattern, unspecified headache type (3) Anemia: Qualified Code: D64.9 - Anemia, unspecified type Rodolfo Lara MD May 21, 2016 10:14
[2016-05-21] MEDS ORDERED: ONDANSETRON HCL 4 MG/2 ML VIAL IV PUSH PRN (10:15)
[2016-05-21] MEDS: PANTOPRAZOLE SOD 40 MG DELAYED RELEASE TAB PO SCH (11:35)
[2016-05-21] MEDS: ACETAMINOPHEN 325 MG TAB PO PRN (11:35)
--- NOTE | 2016-05-21 16:00 | HHI.NPPN ---
Subjective General Problems: Anemia Renal Failure: Chronic, Acute, Stage IV History of Present Illness 25-year-old male with past medical history of peripheral vascular disease, history of HIV, lymphoma, chronic kidney disease, seizure disorder who was admitted to the hospital with seizure. I was called to see the patient because of elevated BUN and creatinine. The patient has known history of chronic kidney disease. Additional Remarks Patient is alert, has vomiting, taking liquids orally, no abd. pain. Review of Systems General Constitutional: Fatigue Gastrointestinal Gastrointestinal: Nausea & Vomiting Objective Data Data 05/20/16 05/21/16 19:00 07:00 Intake Total 931 ml 2214 ml Output Total 700 ml 1890 ml Balance 231 ml 324 ml Intake Oral 320 ml IV Total 931 ml 1894 ml Output Urine Total 700 ml 1890 ml Vital Signs Date Time Temp Pulse Resp B/P Pulse Ox O2 Delivery O2 Flow Rate FiO2 05/21/16 09:54 99 21 05/21/16 07:50 97.1 94 18 110/74 98 05/21/16 04:00 98.7 81 18 136/98 100 05/21/16 00:00 98.5 99 18 122/89 100 05/20/16 20:24 84 05/20/16 20:00 98.8 88 18 121/89 98 05/20/16 18:16 97 21 05/20/16 16:00 97.1 99 18 130/82 97 -: 05/21/16 0707 05/21/16 0707 Physical Exam General Appearance: No Acute Distress, Comfortable Eyes Eye Exam: Pupils Equal Throat Throat Exam: Oral Mucosa [place] & Moist Neck Neck Exam: Neck Supple Pulmonary Resp Exam: Clear Bilaterally, Breath Sounds Equal, No Distress, Decreased Bases Cardiology CV Exam: Regular Gastrointestinal/Abdomen GI Exam: Soft, Non-Tender, Bowel Sounds Present, Non-Distended Genitourinary Exam: Clear Urine Extremeties Extremeties Remarks Bilateral BKA, and left below elbow amputation. Neurologic Neuro Exam: Alert, Awake, Oriented Psychiatric Psych Exam: Appropriate Responses Assessment/Plan Assessment Summary: KVNG/Acute Renal Failure, Anemia of CKD, Dehydration, CKD Stage IV Problem List: (1) Human immunodeficiency virus (HIV) positive (2) Anemia (3) Headache (4) Rhabdomyolysis (5) Chronic renal impairment (6) Acute renal failure Plan Patient has significant improvement in the Creatinine. There is an element of KVNG, possibly due to Rhabdomyolysis. Continue IVF. No need for Dialysis. Hgb. dropped also, check iron stores. Problem Qualifiers (1) Headache: Qualified Code: R51 - Nonintractable headache, unspecified chronicity pattern, unspecified headache type (2) Rhabdomyolysis: Qualified Code: M62.82 - Non-traumatic rhabdomyolysis (3) Acute renal failure: Qualified Code: N17.9 - Acute renal failure, unspecified acute renal failure type Levi Solis MD May 21, 2016 16:00
--- NOTE | 2016-05-21 20:00 | HHI.PR ---
Review/Management Diagnosis - Seizure disorder with breakthrough seizures. - Rhabdomyolysis. - Acute on chronic renal failure. - Hypokalemia. - History of meningitis. - History of septic shock with profound necrosis of the extremities. - Non-Hodgkin's lymphoma. - HIV. Plan - Increased Keppra to 750 mg twice daily. - Seizure precautions. - Ativan 1 mg for seizures lasting more than 3 minutes. - Neuro-checks q.4 hourly. Diagnosis/Plan: Subjective Subjective Comments Patient is more awake and alert today, two " friends" in the room He states and his friends witnessed an episode where he became disoriented for less than a minute, stuttered, no witnessed convulsive activity and reported post ictal state, back to normal Keppra level is therapeutic at 44 Total CK is trending down Abnormal renal function tests EEG with slowing activity but with no evidence of an ictal activity Active Medications Current Medications Medications (Trade) Dose Ordered Sig/Moose Route Start Time Stop Time Status Last Admin (NS 1000 ml Inj) 1,000 ml @ 125 mls/hr Q8H IV 05/19/16 21:46 05/21/16 11:42 (NS Flush) 2 ml UNSCH PRN FLUSH 05/19/16 22:00 (NS Flush) 2 ml BID FLUSH 05/20/16 09:00 (Narcan Inj) 0.4 mg UNSCH PRN IV 05/19/16 22:00 (Ativan Inj) 1 mg Q15M PRN IV PUSH 05/20/16 03:00 (Heparin Inj) 5,000 units Q8H SQ 05/20/16 08:00 05/21/16 15:41 (Keppra) 750 mg Q12HR PO 05/20/16 21:00 05/21/16 08:55 (Tylenol) 650 mg Q4H PRN PO 05/21/16 10:15 05/21/16 11:35 (Zofran Inj) 4 mg Q6H PRN IV PUSH 05/21/16 10:15 05/21/16 11:35 (Protonix) 40 mg DAILY PO 05/21/16 11:00 05/21/16 11:35 Allergies Allergies Coded Allergies Amoxicillin (Verified Allergy, Unknown, 05/19/16) Penicillin (Verified Allergy, Unknown, 05/19/16) Exam I&O / VS 2/05/20/16 05/21/16 15:00 23:00 07:00 Intake Total 931 ml 120 ml 2094 ml Output Total 700 ml 250 ml 1640 ml Balance 231 ml -130 ml 454 ml Intake Oral 120 ml 200 ml IV Total 931 ml 1894 ml Output Urine Total 700 ml 250 ml 1640 ml Vital Signs Date Time Temp Pulse Resp B/P Pulse Ox O2 Delivery O2 Flow Rate FiO2 05/21/16 18:41 99 21 05/21/16 09:54 99 21 05/21/16 08:00 83 05/21/16 07:50 97.1 94 18 110/74 98 05/21/16 04:00 98.7 81 18 136/98 100 05/21/16 00:00 98.5 99 18 122/89 100 05/20/16 20:24 84 05/20/16 20:00 98.8 88 18 121/89 98 Exam Comments GENERAL: The patient is awake, alert and pleasantly engaging during the encounter. HEENT: Atraumatic, normocephalic. Intact hearing. Intact vision. NECK: Trachea in the midline. No carotid bruit. HEART: Regular rate and rhythm. LUNGS: Clear to auscultation. No wheezes. EXTREMITIES: Bilateral below-knee amputation, left below-elbow amputation. NEUROLOGIC: Awake, alert, oriented to time, person and place. Pupils are equally reacting to light. Intact extraocular motility. Fluent speech. No dysarthria. Assessment of the motor function can only be obtained on the right upper extremity because of the amputation of the three other extremities. Sensation is intact over the right upper extremity and the other extremities. Intact cerebellar function on the right upper extremity. Neck supple with no signs of meningeal irritation. Objective Radiology Results Last 72 hours Impressions Renal Ultrasound 05/21/16 0000 Signed Impressions: Service Date/Time: Saturday, May 21, 2016 08:13 - CONCLUSION: Atrophic kidneys secondary to renal parenchymal disease with no obstructive uropathy Gilmar Benton MD Head CT 05/19/16 2310 Signed Impressions: Service Date/Time: Thursday, May 19, 2016 22:54 - CONCLUSION: No acute disease. Torito English MD Micro and Labs Laboratory Tests Test 05/21/16 05/21/16 02:41 07:07 Urine Color COLORLESS Urine Turbidity CLEAR Urine pH 5.5 Urine Specific [place] 1.005 Urine Protein 30 Urine Glucose (UA) NEG Urine Ketones 10 Urine Occult Blood MOD Urine Nitrite NEG Urine Bilirubin NEG Urine Urobilinogen LESS THAN 2.0 Urine Leukocyte Esterase NEG Urine RBC 1 Urine WBC 2 Urine Renal Epithelial Cells <1 Urine Mucus FEW Microscopic Urinalysis Comment CULT NOT INDICATED White Blood Count 9.3 Red Blood Count 3.43 Hemoglobin 8.6 Hematocrit 27.6 Mean Corpuscular Volume 80.5 Mean Corpuscular Hemoglobin 25.1 Mean Corpuscular Hemoglobin 31.1 Concent Red Cell Distribution Width 14.5 Platelet Count 255 Mean Platelet Volume 9.6 Neutrophils (%) (Auto) 55.5 Lymphocytes (%) (Auto) 33.6 Monocytes (%) (Auto) 9.0 Eosinophils (%) (Auto) 1.3 Basophils (%) (Auto) 0.6 Neutrophils # (Auto) 5.2 Lymphocytes # (Auto) 3.1 Monocytes # (Auto) 0.8 Eosinophils # (Auto) 0.1 Basophils # (Auto) 0.1 CBC Comment DIFF FINAL Differential Comment Sodium Level 138 Potassium Level 3.8 Chloride Level 108 Carbon Dioxide Level 16.2 Anion Gap 14 Blood Urea Nitrogen 35 Creatinine 4.07 Estimat Glomerular Filtration 22 Rate Random Glucose 66 Calcium Level 7.4 Protein Corrected Calcium 7.6 Phosphorus Level 3.5 Total Creatine Kinase 5373 Creatine Kinase MB 3.9 Creatine Kinase MB % 0.1 Total Protein 6.8 Lyly Riley MD May 21, 2016 20:00
[2016-05-22] VITALS (10 sets, daily range): BP systolic 146–165; BP diastolic 96–103; PULSE 59–88; RESP 16–20; TEMP 97.1–99.4; O2SAT 96–100
[2016-05-22] MEDS: LORazepam 2 MG/ML VIAL IV PUSH PRN ×3 (02:05→21:12)
[2016-05-22] MEDS: levETIRAcetam 250 MG TAB PO SCH ×2 (09:32→21:13)
[2016-05-22] MEDS: PANTOPRAZOLE SOD 40 MG DELAYED RELEASE TAB PO SCH (09:32)
[2016-05-22] MEDS: SODIUM CHLORIDE 0.9% FLUSH 5 ML FLUSH FLUSH SCH ×2 (09:33→21:13)
[2016-05-22] MEDS: HEPARIN SODIUM - SQ 10,000 UNITS/ML VIAL SQ SCH ×4 (09:33→21:12)
[2016-05-22] MEDS: SODIUM CHLOR 0.9% 1000 ML INJ 1,000 ML IV SCH ×2 (09:33→16:50)
--- NOTE | 2016-05-22 10:58 | HHI.NPPN ---
Subjective General Problems: Anemia Renal Failure: Chronic, Acute, Stage IV History of Present Illness 25-year-old male with past medical history of peripheral vascular disease, history of HIV, lymphoma, chronic kidney disease, seizure disorder who was admitted to the hospital with seizure. I was called to see the patient because of elevated BUN and creatinine. The patient has known history of chronic kidney disease. Additional Remarks Patient is alert, vomiting stopped, taking liquids orally, no abd. pain., no SOB. Review of Systems General Constitutional: Fatigue Gastrointestinal Gastrointestinal: Nausea & Vomiting Objective Data Data 05/21/16 05/22/16 19:00 07:00 Intake Total 1867 ml 780 ml Output Total 1000 ml 1450 ml Balance 867 ml -670 ml Intake Oral 840 ml 780 ml IV Total 1027 ml Output Urine Total 1000 ml 1450 ml Stool Total 0 ml # Bowel Movements 0 Vital Signs Date Time Temp Pulse Resp B/P Pulse Ox O2 Delivery O2 Flow Rate FiO2 05/22/16 10:07 96 05/22/16 07:50 98.3 62 20 154/96 98 05/22/16 00:00 99.4 59 16 162/99 100 05/21/16 20:45 78 05/21/16 20:00 98.0 70 16 151/102 100 05/21/16 18:41 99 21 05/21/16 15:50 98.3 83 20 120/94 97 05/21/16 11:50 98.9 90 20 116/72 100 -: 05/21/16 0707 05/21/16 0707 Physical Exam General Appearance: No Acute Distress, Comfortable Eyes Eye Exam: Pupils Equal Throat Throat Exam: Oral Mucosa [place] & Moist Neck Neck Exam: Neck Supple Pulmonary Resp Exam: Clear Bilaterally, Breath Sounds Equal, No Distress, Decreased Bases Cardiology CV Exam: Regular Gastrointestinal/Abdomen GI Exam: Soft, Non-Tender, Bowel Sounds Present, Non-Distended Genitourinary Exam: Clear Urine Extremeties Extremeties Remarks Bilateral BKA, and left below elbow amputation. 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 There is an element of KVNG, possibly due to Rhabdomyolysis. Continue IVF. No new BMP, will get in AM. Also follow CPK level, was improving. Problem Qualifiers (1) Headache: Qualified Code: R51 - Nonintractable headache, unspecified chronicity pattern, unspecified headache type (2) Rhabdomyolysis: Qualified Code: M62.82 - Non-traumatic rhabdomyolysis (3) Acute renal failure: Qualified Code: N17.9 - Acute renal failure, unspecified acute renal failure type Levi Solis MD May 22, 2016 10:58
[2016-05-22 11:37] LABS: AUTOMATED NEUTROPHIL # 3.8 TH/MM3 (1.8-7.7); BASOPHIL % 0.5 % (0.0-2.0); EOSINOPHIL # 0.1 TH/MM3 (0-0.4); EOSINOPHIL % 1.8 % (0.0-4.0); HEMATOCRIT 29.2 % (39.0-51.0); HEMO FLAGS DIFF FINAL; LYMPH % 34.5 % (9.0-44.0); LYMPHOCYTE # 2.7 TH/MM3 (1.0-4.8); MEAN CELL VOLUME 81.2 FL (80.0-100.0); MEAN CORPUSCULAR HEMOGLOBIN 25.5 PG (27.0-34.0); MEAN CORPUSCULAR HGB CONC 31.4 % (32.0-36.0); MONO % 15.3 % (0.0-8.0); NEUT % 47.9 % (16.0-70.0); PLATELET COUNT 283 TH/MM3 (150-450); RED CELL DISTRIBUTION WIDTH 14.8 % (11.6-17.2); WHITE BLOOD COUNT 7.9 TH/MM3 (4.0-11.0)
[2016-05-22 12:12] LABS: ALKALINE PHOSPHATASE 57 U/L (45-117); ALT (GPT) 46 U/L (12-78); ANION GAP 11 MEQ/L (5-15); AST (GOT) 123 U/L (15-37); BICARBONATE 17.5 MEQ/L (21.0-32.0); BLOOD UREA NITROGEN 31 MG/DL (7-18); CHLORIDE 114 MEQ/L (98-107); GLOMERULAR FILTRATION RATE 22 ML/MIN (>89); MAGNESIUM 1.8 MG/DL (1.5-2.5); SODIUM (NA) 142 MEQ/L (136-145); TOTAL BILIRUBIN ADULT 0.3 MG/DL (0.2-1.0)
--- NOTE | 2016-05-22 20:53 | HHI.PR ---
Subjective Remarks Deferred entry - patient seen earlier at 11:10 am Patient denies cp/sob denies fevers/chills stable vital signs good urine output Objective Vitals Vital Signs Date Time Temp Pulse Resp B/P Pulse Ox O2 Delivery O2 Flow Rate FiO2 05/22/16 17:49 99 21 05/22/16 15:50 97.1 70 20 165/99 05/22/16 12:30 65 05/22/16 11:50 98.1 70 20 157/97 100 05/22/16 10:07 96 05/22/16 07:50 98.3 62 20 154/96 98 05/22/16 00:00 99.4 59 16 162/99 100 05/21/16 20:45 78 I/O 05/21/16 05/21/16 05/21/16 05/22/16 05/22/16 05/22/16 07:00 15:00 23:00 07:00 15:00 23:00 Intake Total 2094 ml 1867 ml 360 ml 420 ml 3647 ml 720 ml Output Total 1640 ml 1000 ml 300 ml 1150 ml 1700 ml Balance 454 ml 867 ml 60 ml -730 ml 3647 ml -980 ml Intake Oral 200 ml 840 ml 360 ml 420 ml 720 ml IV Total 1894 ml 1027 ml 3647 ml Output Urine Total 1640 ml 1000 ml 300 ml 1150 ml 1700 ml Stool Total 0 ml # Bowel Movements 0 0 0 Result Diagram: 05/22/16 1105 05/22/16 1105 Imaging Last Impressions Renal Ultrasound 05/21/16 0000 Signed Impressions: Service Date/Time: Saturday, May 21, 2016 08:13 - CONCLUSION: Atrophic kidneys secondary to renal parenchymal disease with no obstructive uropathy Gilmar Benton MD Head CT 05/19/16 2310 Signed Impressions: Service Date/Time: Thursday, May 19, 2016 22:54 - CONCLUSION: No acute disease. Torito English MD Objective Remarks GENERAL: This is a well-nourished, well-developed patient, in no apparent distress. CARDIOVASCULAR: Regular rate and irregular rhythm without murmurs, gallops, or rubs. RESPIRATORY: Clear to auscultation. Breath sounds equal bilaterally. No wheezes , rales, or rhonchi. GASTROINTESTINAL: Abdomen soft, non-tender, nondistended. Normal, active bowel sounds MUSCULOSKELETAL: s/p bilateral BKA Procedures none Medications and IVs Current Medications Medications (Trade) Dose Ordered Sig/Moose Route Start Time Stop Time Status Last Admin (NS 1000 ml Inj) 1,000 ml @ 125 mls/hr Q8H IV 05/19/16 21:46 05/22/16 16:50 (NS Flush) 2 ml UNSCH PRN FLUSH 05/19/16 22:00 (NS Flush) 2 ml BID FLUSH 05/20/16 09:00 05/22/16 09:33 (Narcan Inj) 0.4 mg UNSCH PRN IV 05/19/16 22:00 (Ativan Inj) 1 mg Q15M PRN IV PUSH 05/20/16 03:00 05/22/16 12:22 (Heparin Inj) 5,000 units Q8H SQ 05/20/16 08:00 05/22/16 16:50 (Keppra) 750 mg Q12HR PO 05/20/16 21:00 05/22/16 09:32 (Tylenol) 650 mg Q4H PRN PO 05/21/16 10:15 05/21/16 11:35 (Zofran Inj) 4 mg Q6H PRN IV PUSH 05/21/16 10:15 05/21/16 11:35 (Protonix) 40 mg DAILY PO 05/21/16 11:00 05/22/16 09:32 Urinary Catheter: No Vascular Central Line Catheter: No A/P Problem List: (1) Seizure disorder ICD Code: 780.39 Status: Chronic Plan: Patient to the medical floor, patient has known seizure disorder. Neurologic consulted Continue neuro checks every 4 hours On the Keppra 750 mg by mouth every 12 hours (2) Rhabdomyolysis ICD Code: M62.82 Status: Acute Plan: Due to seizure disorder and compulsions. Continue every fluid. CK initially trending up, today starts to trend down from 4608-4652. Continue to monitor CK daily and continue IV fluid administration. (3) Acute on chronic renal failure ICD Code: N17.9 Status: Acute Plan: Likely secondary to rhabdomyolysis Creatinine now starting to trend down. Creatinine continue to trend down. Patient with improved urine output. Continue to monitor BUN/creatinine, strict I's and O's and avoid nephrotoxins. Continue IV fluids (4) Anemia of chronic illness ICD Code: D63.8 Status: Chronic Plan: Hemoglobin seems to be stable when compared to other hospital visits. Continue to monitor and trend. (5) Leukocytosis ICD Code: D72.829 Status: Chronic Plan: Leukocytosis resolved, likely elevated secondary to stress due to seizure activity. (6) Hypokalemia ICD Code: E87.6 Status: Resolved Plan: Potassium was replaced. Continue to monitor potassium. Level today is normal. (7) Hypocalcemia ICD Code: E83.51 Status: Acute Plan: Protein corrected calcium is within normal range. Continue to monitor BMP and replace as needed. (8) Headache ICD Code: R51 Status: Acute (9) Nausea ICD Code: R11.0 Status: Acute Plan: Resolved. Continue Zofran as needed (10) Anemia ICD Code: D64.9 Status: Acute Plan: With MCV in the lower side of normal. Stool guaiac pending. (11) HIV (human immunodeficiency virus infection) ICD Code: Z21 Status: Acute Plan: Discussed with RN - will try to confirm medications to see if patient is being compliant with HIV medications. Patient does no know what medications he has been taking. 05/22 RN called patient's pharmacy - medications have not been filled since 2016. There is noncompliance - patient will need to follow up with the health department. Assessment and Plan GI prophylaxis: I will add PPI. DVT plexus: SCDs, continue heparin subcutaneously. Discharge Planning pending resolution of Rhabdomyolysis and renal clearance Problem Qualifiers (1) Rhabdomyolysis: Qualified Code: M62.82 - Non-traumatic rhabdomyolysis (2) Headache: Qualified Code: R51 - Nonintractable headache, unspecified chronicity pattern, unspecified headache type (3) Anemia: Qualified Code: D64.9 - Anemia, unspecified type Rodolfo Lara MD May 22, 2016 20:53
[2016-05-23] MEDS: SODIUM CHLOR 0.9% 1000 ML INJ 1,000 ML IV SCH ×3 (00:05→16:26)
[2016-05-23 04:00] VITALS: BP 180/109; PULSE 58; RESP 16; TEMP 98.3; O2SAT 96
[2016-05-23] MEDS: LORazepam 2 MG/ML VIAL IV PUSH PRN (05:46)
[2016-05-23 08:00] VITALS: BP 150/103; PULSE 58; RESP 20; TEMP 98.5; O2SAT 99
[2016-05-23 08:06] LABS: TRANSFERRIN IRON PROFILE 162 MG/DL (200-360)
[2016-05-23] MEDS: SODIUM CHLORIDE 0.9% FLUSH 5 ML FLUSH FLUSH SCH ×2 (09:00→21:00)
[2016-05-23] MEDS: levETIRAcetam 250 MG TAB PO SCH ×2 (10:06→21:13)
[2016-05-23] MEDS: PANTOPRAZOLE SOD 40 MG DELAYED RELEASE TAB PO SCH (10:07)
[2016-05-23] MEDS: HEPARIN SODIUM - SQ 10,000 UNITS/ML VIAL SQ SCH ×2 (10:07→16:25)
[2016-05-23 10:25] VITALS: O2SAT 98
[2016-05-23 12:00] VITALS: BP 149/94; PULSE 66; RESP 20; TEMP 97; O2SAT 97
--- NOTE | 2016-05-23 13:01 | HHI.NPPN ---
Subjective General Problems: Anemia Renal Failure: Chronic, Acute, Stage IV History of Present Illness 25-year-old male with past medical history of peripheral vascular disease, history of HIV, lymphoma, chronic kidney disease, seizure disorder who was admitted to the hospital with seizure. I was called to see the patient because of elevated BUN and creatinine. The patient has known history of chronic kidney disease. Additional Remarks Patient is alert, feeling better, no more vomiting. Review of Systems General Constitutional: Fatigue Gastrointestinal Gastrointestinal: Nausea & Vomiting Objective Data Data 05/22/16 05/23/16 19:00 07:00 Intake Total 4367 ml 1280 ml Output Total 1700 ml 3500 ml Balance 2667 ml -2220 ml Intake Oral 720 ml 1280 ml IV Total 3647 ml Output Urine Total 1700 ml 3500 ml # Bowel Movements 0 0 Vital Signs Date Time Temp Pulse Resp B/P Pulse Ox O2 Delivery O2 Flow Rate FiO2 05/23/16 12:00 97.0 66 20 149/94 97 05/23/16 10:25 98 21 05/23/16 08:00 98.5 58 20 150/103 99 05/23/16 04:00 98.3 58 16 180/109 96 05/22/16 23:52 98.9 65 16 146/99 100 05/22/16 20:59 88 05/22/16 20:00 98.1 70 16 150/103 100 05/22/16 17:49 99 21 05/22/16 15:50 97.1 70 20 165/99 -: 05/22/16 1105 05/22/16 1105 Physical Exam General Appearance: No Acute Distress, Comfortable Eyes Eye Exam: Pupils Equal Throat Throat Exam: Oral Mucosa [place] & Moist Neck Neck Exam: Neck Supple Pulmonary Resp Exam: Clear Bilaterally, Breath Sounds Equal, No Distress, Decreased Bases Cardiology CV Exam: Regular Gastrointestinal/Abdomen GI Exam: Soft, Non-Tender, Bowel Sounds Present, Non-Distended Genitourinary Exam: Clear Urine Extremeties Extremeties Remarks Bilateral BKA, and left below elbow amputation. 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 There is an element of KVNG, possibly due to Rhabdomyolysis. Continue IVF. BMP from AM is pending. Hgb. is stable. Problem Qualifiers (1) Headache: Qualified Code: R51 - Nonintractable headache, unspecified chronicity pattern, unspecified headache type (2) Rhabdomyolysis: Qualified Code: M62.82 - Non-traumatic rhabdomyolysis (3) Acute renal failure: Qualified Code: N17.9 - Acute renal failure, unspecified acute renal failure type Levi Solis MD May 23, 2016 13:01
[2016-05-23 13:31] LABS: BICARBONATE 17.3 MEQ/L (21.0-32.0); POTASSIUM 3.4 MEQ/L (3.5-5.1)
[2016-05-23 13:47] LABS: CKMB 2.6 NG/ML (0.5-3.6)
[2016-05-23 16:00] VITALS: BP 178/97; PULSE 60; RESP 20; TEMP 98.1; O2SAT 97
[2016-05-23 16:26] LABS: AUTOMATED NEUTROPHIL # 3.7 TH/MM3 (1.8-7.7); BASOPHIL % 0.4 % (0.0-2.0); EOSINOPHIL # 0.3 TH/MM3 (0-0.4); EOSINOPHIL % 3.1 % (0.0-4.0); HEMATOCRIT 33.2 % (39.0-51.0); HEMO FLAGS DIFF FINAL; LYMPH % 38.3 % (9.0-44.0); LYMPHOCYTE # 3.2 TH/MM3 (1.0-4.8); MEAN CELL VOLUME 82.4 FL (80.0-100.0); MEAN CORPUSCULAR HEMOGLOBIN 25.6 PG (27.0-34.0); MEAN CORPUSCULAR HGB CONC 31.1 % (32.0-36.0); MONO % 14.9 % (0.0-8.0); NEUT % 43.3 % (16.0-70.0); PLATELET COUNT 291 TH/MM3 (150-450); RED BLOOD COUNT 4.04 MIL/MM3 (4.50-5.90); RED CELL DISTRIBUTION WIDTH 14.9 % (11.6-17.2); WHITE BLOOD COUNT 8.4 TH/MM3 (4.0-11.0)
[2016-05-23 16:47] LABS: ANION GAP 12 MEQ/L (5-15); AST (GOT) 116 U/L (15-37); BICARBONATE 20.3 MEQ/L (21.0-32.0); BLOOD UREA NITROGEN 23 MG/DL (7-18); CHLORIDE 111 MEQ/L (98-107); GLOMERULAR FILTRATION RATE 26 ML/MIN (>89); MAGNESIUM 1.5 MG/DL (1.5-2.5); POTASSIUM 3.5 MEQ/L (3.5-5.1); SODIUM (NA) 143 MEQ/L (136-145)
[2016-05-23 16:52] LABS: ALKALINE PHOSPHATASE 62 U/L (45-117); ALT (GPT) 54 U/L (12-78); TOTAL BILIRUBIN ADULT 0.3 MG/DL (0.2-1.0)
--- NOTE | 2016-05-23 17:38 | HHI.PR ---
Subjective Remarks patient denies cp/sob creatinine trending down denies cp/sob stable vital signs Objective Vitals Vital Signs Date Time Temp Pulse Resp B/P Pulse Ox O2 Delivery O2 Flow Rate FiO2 05/23/16 12:00 97.0 66 20 149/94 97 05/23/16 10:25 98 21 05/23/16 08:00 98.5 58 20 150/103 99 05/23/16 04:00 98.3 58 16 180/109 96 05/22/16 23:52 98.9 65 16 146/99 100 05/22/16 20:59 88 05/22/16 20:00 98.1 70 16 150/103 100 05/22/16 17:49 99 21 I/O 05/22/16 05/22/16 05/22/16 05/23/16 05/23/16 05/23/16 07:00 15:00 23:00 07:00 15:00 23:00 Intake Total 420 ml 3647 ml 1200 ml 800 ml 1800 ml Output Total 1150 ml 2200 ml 3000 ml 2600 ml Balance -730 ml 3647 ml -1000 ml -2200 ml -800 ml Intake Oral 420 ml 1200 ml 800 ml 1200 ml IV Total 3647 ml 600 ml Output Urine Total 1150 ml 2200 ml 3000 ml 2600 ml # Bowel Movements 0 0 0 Result Diagram: 05/23/16 1603 05/23/16 1603 Imaging Last Impressions Renal Ultrasound 05/21/16 0000 Signed Impressions: Service Date/Time: Saturday, May 21, 2016 08:13 - CONCLUSION: Atrophic kidneys secondary to renal parenchymal disease with no obstructive uropathy Gilmar Benton MD Head CT 05/19/16 2310 Signed Impressions: Service Date/Time: Thursday, May 19, 2016 22:54 - CONCLUSION: No acute disease. Torito English MD Objective Remarks GENERAL: This is a well-nourished, well-developed patient, in no apparent distress. CARDIOVASCULAR: Regular rate and irregular rhythm without murmurs, gallops, or rubs. RESPIRATORY: Clear to auscultation. Breath sounds equal bilaterally. No wheezes , rales, or rhonchi. GASTROINTESTINAL: Abdomen soft, non-tender, nondistended. Normal, active bowel sounds MUSCULOSKELETAL: s/p bilateral BKA Procedures none Medications and IVs Current Medications Medications (Trade) Dose Ordered Sig/Moose Route Start Time Stop Time Status Last Admin (NS 1000 ml Inj) 1,000 ml @ 125 mls/hr Q8H IV 05/19/16 21:46 05/23/16 16:26 (NS Flush) 2 ml UNSCH PRN FLUSH 05/19/16 22:00 (NS Flush) 2 ml BID FLUSH 05/20/16 09:00 05/22/16 21:13 (Narcan Inj) 0.4 mg UNSCH PRN IV 05/19/16 22:00 (Ativan Inj) 1 mg Q15M PRN IV PUSH 05/20/16 03:00 05/23/16 05:46 (Heparin Inj) 5,000 units Q8H SQ 05/20/16 08:00 05/23/16 16:25 (Keppra) 750 mg Q12HR PO 05/20/16 21:00 05/23/16 10:06 (Tylenol) 650 mg Q4H PRN PO 05/21/16 10:15 05/21/16 11:35 (Zofran Inj) 4 mg Q6H PRN IV PUSH 05/21/16 10:15 05/21/16 11:35 (Protonix) 40 mg DAILY PO 05/21/16 11:00 05/23/16 10:07 A/P Problem List: (1) Seizure disorder ICD Code: 780.39 Status: Chronic Plan: Patient to the medical floor, patient has known seizure disorder. Neurologic consulted Continue neuro checks every 4 hours On the Keppra 750 mg by mouth every 12 hours (2) Rhabdomyolysis ICD Code: M62.82 Status: Acute Plan: Due to seizure disorder and compulsions. Continue every fluid. CK initially trending up, today starts to trend down from 3895-9235 - 5108. Continue to monitor CK daily and continue IV fluid administration. (3) Acute on chronic renal failure ICD Code: N17.9 Status: Acute Plan: Likely secondary to rhabdomyolysis Creatinine is trending down. Continue to monitor BUN/creatinine, strict I's and O's and avoid nephrotoxins. Continue IV fluids Nephrology following (4) Anemia of chronic illness ICD Code: D63.8 Status: Chronic Plan: Hemoglobin seems to be stable when compared to other hospital visits. Continue to monitor and trend. (5) Leukocytosis ICD Code: D72.829 Status: Chronic Plan: Leukocytosis resolved, likely elevated secondary to stress due to seizure activity. (6) Hypokalemia ICD Code: E87.6 Status: Resolved Plan: Potassium was replaced. Continue to monitor potassium. Level normal - trending down - will give 20 meq of potassium orally. (7) Hypocalcemia ICD Code: E83.51 Status: Acute Plan: Protein corrected calcium is within normal range. Continue to monitor BMP and replace as needed. (8) Headache ICD Code: R51 Status: Acute Plan: Resolved. Continue with Tylenol as needed. (9) Nausea ICD Code: R11.0 Status: Resolved Plan: Resolved. Continue Zofran as needed (10) Anemia ICD Code: D64.9 Status: Chronic Plan: With MCV in the lower side of normal. Iron studies show low iron and TIBC , normal ferritin and % saturation. Likely due to HIV. (11) HIV (human immunodeficiency virus infection) ICD Code: Z21 Status: Acute Plan: Discussed with RN - will try to confirm medications to see if patient is being compliant with HIV medications. Patient does no know what medications he has been taking. 05/22 RN called patient's pharmacy - medications have not been filled since 2016. There is noncompliance - patient will need to follow up with the health department. 05/23 I called [facility] specialty pharmacy - last time patient filled his antiretroviral medications was on 06/21/2015. the prescribing physician then was nacho Dubon. Will try to contact him. Patient seems to be noncompliant. will not resume antiretrovirals until compliance is confirmed. Patient states that he has been compliant. Assessment and Plan GI prophylaxis: I will add PPI. DVT plexus: SCDs, continue heparin subcutaneously. Discharge Planning pending resolution of Rhabdomyolysis and renal clearance Problem Qualifiers (1) Rhabdomyolysis: Qualified Code: M62.82 - Non-traumatic rhabdomyolysis (2) Headache: Qualified Code: R51 - Nonintractable headache, unspecified chronicity pattern, unspecified headache type (3) Anemia: Qualified Code: D64.9 - Anemia, unspecified type Rodolfo Lara MD May 23, 2016 17:38
[2016-05-23] MEDS: POTASSIUM PHOSPHATE/SODIUM PHOSPHATE 250 MG TAB PO SCH ×2 (18:00→21:14)
[2016-05-23] MEDS ORDERED: POTASSIUM CHLORIDE 20 MEQ CONTROLLED RELEASE TAB PO ONE (18:00)
[2016-05-23 20:00] VITALS: BP 174/114; PULSE 61; RESP 16; TEMP 98.6; O2SAT 100
[2016-05-24] VITALS: BP 173/110; PULSE 62; RESP 16; TEMP 98.4; O2SAT 100
[2016-05-24] MEDS: HEPARIN SODIUM - SQ 10,000 UNITS/ML VIAL SQ SCH ×3 (00:06→16:00)
[2016-05-24] MEDS: SODIUM CHLOR 0.9% 1000 ML INJ 1,000 ML IV SCH ×4 (00:10→22:00)
[2016-05-24] MEDS: ACETAMINOPHEN 325 MG TAB PO PRN (02:43)
[2016-05-24 04:00] VITALS: BP 112/78; PULSE 55; RESP 16; TEMP 98; O2SAT 100
[2016-05-24] MEDS: POTASSIUM PHOSPHATE/SODIUM PHOSPHATE 250 MG TAB PO SCH ×3 (05:21→22:00)
[2016-05-24 06:42] LABS: BICARBONATE 19.4 MEQ/L (21.0-32.0); POTASSIUM 3.4 MEQ/L (3.5-5.1)
[2016-05-24 07:24] LABS: CKMB 1.2 NG/ML (0.5-3.6)
[2016-05-24 08:00] VITALS: BP 167/103; PULSE 68; RESP 16; TEMP 96.9; O2SAT 100
[2016-05-24] MEDS: levETIRAcetam 250 MG TAB PO SCH ×2 (09:02→22:00)
[2016-05-24] MEDS: PANTOPRAZOLE SOD 40 MG DELAYED RELEASE TAB PO SCH (09:02)
[2016-05-24] MEDS: SODIUM CHLORIDE 0.9% FLUSH 5 ML FLUSH FLUSH SCH ×2 (09:04→21:00)
--- NOTE | 2016-05-24 10:58 | HHI.NPPN ---
Subjective General Problems: Anemia Renal Failure: Chronic, Acute, Stage IV History of Present Illness 25-year-old male with past medical history of peripheral vascular disease, history of HIV, lymphoma, chronic kidney disease, seizure disorder who was admitted to the hospital with seizure. I was called to see the patient because of elevated BUN and creatinine. The patient has known history of chronic kidney disease. Additional Remarks Patient is alert, feeling better, no more vomiting, no seizure, started eating better. Review of Systems General Constitutional: Fatigue Gastrointestinal Gastrointestinal: Nausea & Vomiting Objective Data Data 05/23/16 05/24/16 19:00 07:00 Intake Total 1800 ml 1080 ml Output Total 3350 ml 2250 ml Balance -1550 ml -1170 ml Intake Oral 1200 ml 1080 ml IV Total 600 ml Output Urine Total 3350 ml 2250 ml Vital Signs Date Time Temp Pulse Resp B/P Pulse Ox O2 Delivery O2 Flow Rate FiO2 05/24/16 08:00 96.9 68 16 167/103 100 05/24/16 04:00 98.0 55 16 112/78 100 05/24/16 03:43 16 05/24/16 00:00 98.4 62 16 173/110 100 05/23/16 20:00 98.6 61 16 174/114 100 05/23/16 16:00 98.1 60 20 178/97 97 05/23/16 12:00 97.0 66 20 149/94 97 -: 05/23/16 1603 05/24/16 0523 Physical Exam General Appearance: No Acute Distress, Comfortable Eyes Eye Exam: Pupils Equal Throat Throat Exam: Oral Mucosa [place] & Moist Neck Neck Exam: Neck Supple Pulmonary Resp Exam: Clear Bilaterally, Breath Sounds Equal, No Distress, Decreased Bases Cardiology CV Exam: Regular Gastrointestinal/Abdomen GI Exam: Soft, Non-Tender, Bowel Sounds Present, Non-Distended Genitourinary Exam: Clear Urine Extremeties Extremeties Remarks Bilateral BKA, and left below elbow amputation. 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 There is an element of KVNG, possibly due to Rhabdomyolysis. Continue IVF. Creatinine is 3.4-3.6, possibly his baseline. BP is occ. elevated, Amlodipine increased to 10 mgh, will follow. Problem Qualifiers (1) Headache: Qualified Code: R51 - Nonintractable headache, unspecified chronicity pattern, unspecified headache type (2) Rhabdomyolysis: Qualified Code: M62.82 - Non-traumatic rhabdomyolysis (3) Acute renal failure: Qualified Code: N17.9 - Acute renal failure, unspecified acute renal failure type Levi Solis MD May 24, 2016 10:58
[2016-05-24 12:00] VITALS: BP 151/96; PULSE 60; RESP 16; TEMP 98; O2SAT 100
[2016-05-24 16:00] VITALS: BP 119/85; PULSE 76; RESP 16; TEMP 98.6; O2SAT 100
[2016-05-24 20:00] VITALS: BP 105/70; PULSE 89; RESP 18; TEMP 98.9; O2SAT 97
[2016-05-25] VITALS (8 sets, daily range): BP systolic 85–139; BP diastolic 57–98; PULSE 79–115; RESP 16–18; TEMP 99–100.8; O2SAT 94–99
[2016-05-25] MEDS: HEPARIN SODIUM - SQ 10,000 UNITS/ML VIAL SQ SCH ×4 (00:22→23:38)
[2016-05-25] MEDS: ACETAMINOPHEN 325 MG TAB PO PRN ×2 (00:25→09:33)
[2016-05-25] MEDS ORDERED: LORazepam 2 MG/ML VIAL IM/IV PRN (03:50)
[2016-05-25] MEDS: POTASSIUM PHOSPHATE/SODIUM PHOSPHATE 250 MG TAB PO SCH ×3 (05:54→20:16)
[2016-05-25] MEDS: SODIUM CHLOR 0.9% 1000 ML INJ 1,000 ML IV SCH ×3 (08:05→23:35)
[2016-05-25] MEDS: levETIRAcetam 250 MG TAB PO SCH ×2 (08:23→20:16)
[2016-05-25] MEDS: PANTOPRAZOLE SOD 40 MG DELAYED RELEASE TAB PO SCH (08:23)
[2016-05-25] MEDS: SODIUM CHLORIDE 0.9% FLUSH 5 ML FLUSH FLUSH SCH ×2 (08:30→20:15)
--- NOTE | 2016-05-25 12:50 | PQ ---
Physician Query Response Document PATIENT: THEODORA NIELSON : 1990 ADMIT DATE: 05/19/2016 9:47 PM DISCH DATE: RESPONDING PROVIDER #: [email or web address] QUERY TEXT: HIV Clarification and Associated Conditions HIV (Human immunodeficiency virus) is documented in the medical record. Please specify the type Such as: -- Acquired immune deficiency syndrome [AIDS] -- JGZE-[id number]-aofxthe complex [ARC] -- Symptomatic -- Asymptomatic -- With current or previous HIV-related condition (please specify related condition) -- Exposure to HIV -- Inconclusive serologic evidence of HIV -- Other, please specify The patient's Clinical Indicators include: PER H Past Family Social History HIV ? perinatally acquired NO CD4 COUNT ON MEDICAL RECORD PER ER NOTE HOME MEDS INCLUDE ANTIRETROVIRAL Query created by: Ludmila Bryan on 05/21/2016 10:18 AM RESPONSE TEXT: AIDS Electronically signed by: Amy Singh MD 05/25/2016 12:46 PM
--- NOTE | 2016-05-25 13:43 | HHI.NPPN ---
Subjective General Problems: Anemia Renal Failure: Chronic, Acute, Stage IV History of Present Illness 25-year-old male with past medical history of peripheral vascular disease, history of HIV, lymphoma, chronic kidney disease, seizure disorder who was admitted to the hospital with seizure. I was called to see the patient because of elevated BUN and creatinine. The patient has known history of chronic kidney disease. Additional Remarks Patient is alert, feeling better, no more vomiting, no seizure, feeling better. Review of Systems General Constitutional: Fatigue Gastrointestinal Gastrointestinal: Nausea & Vomiting Objective Data Data 05/24/16 05/25/16 19:00 07:00 Intake Total 1760 ml 1000 ml Output Total 1350 ml 700 ml Balance 410 ml 300 ml Intake Oral 960 ml 1000 ml IV Total 800 ml Output Urine Total 1350 ml 700 ml Stool Total 0 ml # Voids 2 Vital Signs Date Time Temp Pulse Resp B/P Pulse Ox O2 Delivery O2 Flow Rate FiO2 05/25/16 12:00 99.0 95 16 85/60 99 05/25/16 10:13 115 05/25/16 10:13 115 05/25/16 08:00 99.9 103 16 95/59 99 05/25/16 06:01 100.8 101 18 139/98 98 05/25/16 01:25 18 05/25/16 00:33 99.0 79 18 125/91 94 05/24/16 20:00 98.9 89 18 105/70 97 05/24/16 16:00 98.6 76 16 119/85 100 -: 05/23/16 1603 05/24/16 0523 Physical Exam General Appearance: No Acute Distress, Comfortable Eyes Eye Exam: Pupils Equal Throat Throat Exam: Oral Mucosa [place] & Moist Neck Neck Exam: Neck Supple Pulmonary Resp Exam: Clear Bilaterally, Breath Sounds Equal, No Distress, Decreased Bases Cardiology CV Exam: Regular Gastrointestinal/Abdomen GI Exam: Soft, Non-Tender, Bowel Sounds Present, Non-Distended Genitourinary Exam: Clear Urine Extremeties Extremeties Remarks Bilateral BKA, and left below elbow amputation. 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 There is an element of KVNG, possibly due to Rhabdomyolysis. Continue IVF. Creatinine was 3.6 yesterday. Follow BMP in AM. Problem Qualifiers (1) Headache: Qualified Code: R51 - Nonintractable headache, unspecified chronicity pattern, unspecified headache type (2) Rhabdomyolysis: Qualified Code: M62.82 - Non-traumatic rhabdomyolysis (3) Acute renal failure: Qualified Code: N17.9 - Acute renal failure, unspecified acute renal failure type Levi Solis MD May 25, 2016 13:43
[2016-05-25 16:03] LABS: ANION GAP 14 MEQ/L (5-15); BICARBONATE 20.3 MEQ/L (21.0-32.0); BLOOD UREA NITROGEN 28 MG/DL (7-18); CHLORIDE 109 MEQ/L (98-107); CREATINE KINASE 874 U/L (39-308); GLOMERULAR FILTRATION RATE 20 ML/MIN (>89); POTASSIUM 3.1 MEQ/L (3.5-5.1); SODIUM (NA) 143 MEQ/L (136-145)
[2016-05-25 16:18] LABS: CALCIUM-PROTEIN CORRECTED 7.1 MG/DL (8.5-10.1)
[2016-05-25 16:31] LABS: CKMB LESS THAN 0.5 NG/ML (0.5-3.6)
[2016-05-25] MEDS ORDERED: CALCIUM CHLORIDE INJ 2 GM in SODIUM CHLORIDE 0.9% INJ 100 ML IV ONE (23:30)
[2016-05-25] MEDS ORDERED: POTASSIUM CHLORIDE 10 MEQ CONTROLLED RELEASE TAB PO ONE (23:30)
[2016-05-25] MEDS ORDERED: POTASSIUM CHLOR 20 MEQ PREMIX 100 ML IV ONE (23:30)
[2016-05-26] VITALS (7 sets, daily range): BP systolic 93–141; BP diastolic 57–83; PULSE 75–103; RESP 16–18; TEMP 97.8–101.4; O2SAT 96–99
--- NOTE | 2016-05-26 00:32 | HHI.PR ---
Subjective Remarks deferred entry patient seen on 05/24 at 10:45 am Patient denies cp/sob denies fevers/chills good urine output bp elevated. Objective Vitals Vital Signs Date Time Temp Pulse Resp B/P Pulse Ox O2 Delivery O2 Flow Rate FiO2 05/25/16 20:05 91 05/25/16 20:00 99.7 95 18 117/83 97 05/25/16 16:00 99.0 88 16 89/57 99 05/25/16 12:00 99.0 95 16 85/60 99 05/25/16 10:13 115 05/25/16 10:13 115 05/25/16 08:00 99.9 103 16 95/59 99 05/25/16 06:01 100.8 101 18 139/98 98 05/25/16 01:25 18 05/25/16 00:33 99.0 79 18 125/91 94 I/O 05/25/16 05/25/16 05/25/16 05/26/16 05/26/16 05/26/16 07:00 15:00 23:00 07:00 15:00 23:00 Intake Total 1000 ml 480 ml 1615 ml Output Total 700 ml 540 ml 2500 ml Balance 300 ml -60 ml -885 ml Intake Oral 1000 ml 480 ml 480 ml IV Total 1135 ml Output Urine Total 700 ml 540 ml 2500 ml # Voids 2 # Bowel Movements 1 Result Diagram: 05/23/16 1603 05/25/16 1524 Imaging Last Impressions Renal Ultrasound 05/21/16 0000 Signed Impressions: Service Date/Time: Saturday, May 21, 2016 08:13 - CONCLUSION: Atrophic kidneys secondary to renal parenchymal disease with no obstructive uropathy Gilmar Benton MD Head CT 05/19/16 2310 Signed Impressions: Service Date/Time: Thursday, May 19, 2016 22:54 - CONCLUSION: No acute disease. Torito English MD Objective Remarks GENERAL: This is a well-nourished, well-developed patient, in no apparent distress. CARDIOVASCULAR: Regular rate and irregular rhythm without murmurs, gallops, or rubs. RESPIRATORY: Clear to auscultation. Breath sounds equal bilaterally. No wheezes , rales, or rhonchi. GASTROINTESTINAL: Abdomen soft, non-tender, nondistended. Normal, active bowel sounds MUSCULOSKELETAL: s/p bilateral BKA Procedures none Medications and IVs Current Medications Medications (Trade) Dose Ordered Sig/Moose Route Start Time Stop Time Status Last Admin (NS 1000 ml Inj) 1,000 ml @ 125 mls/hr Q8H IV 05/19/16 21:46 05/25/16 23:35 (NS Flush) 2 ml UNSCH PRN FLUSH 05/19/16 22:00 (NS Flush) 2 ml BID FLUSH 05/20/16 09:00 05/24/16 09:04 (Narcan Inj) 0.4 mg UNSCH PRN IV 05/19/16 22:00 (Heparin Inj) 5,000 units Q8H SQ 05/20/16 08:00 05/25/16 23:38 (Keppra) 750 mg Q12HR PO 05/20/16 21:00 05/25/16 20:16 (Tylenol) 650 mg Q4H PRN PO 05/21/16 10:15 05/25/16 09:33 (Zofran Inj) 4 mg Q6H PRN IV PUSH 05/21/16 10:15 05/21/16 11:35 (Protonix) 40 mg DAILY PO 05/21/16 11:00 05/25/16 08:23 (K-Phos Neutral) 250 mg Q8HR PO 05/23/16 18:00 05/25/16 20:16 (Norvasc) 10 mg DAILY PO 05/24/16 11:00 05/25/16 08:23 Lorazepam 1 mg 1 mg Q5M PRN IM/IV 05/25/16 03:50 Calcium Chloride 2 gm/Sodium Chloride 120 ml @ 120 mls/hr ONCE ONCE IV 05/25/16 23:30 05/26/16 00:29 (KCl 20 Meq Premix Inj) 100 ml @ 50 mls/hr BOLUS ONCE IV 05/25/16 23:30 05/26/16 01:29 05/25/16 23:35 Urinary Catheter: No Vascular Central Line Catheter: No A/P Problem List: (1) Seizure disorder ICD Code: 780.39 Status: Chronic (2) Rhabdomyolysis ICD Code: M62.82 Status: Acute (3) Acute on chronic renal failure ICD Code: N17.9 Status: Acute (4) Anemia of chronic illness ICD Code: D63.8 Status: Chronic (5) Leukocytosis ICD Code: D72.829 Status: Chronic (6) Hypokalemia ICD Code: E87.6 Status: Acute Plan: Patient's blood pressure persistently elevated. (7) Hypocalcemia ICD Code: E83.51 Status: Acute (8) Headache ICD Code: R51 Status: Acute (9) Nausea ICD Code: R11.0 Status: Resolved (10) Anemia ICD Code: D64.9 Status: Chronic (11) HIV (human immunodeficiency virus infection) ICD Code: Z21 Status: Acute (12) HTN (hypertension) ICD Code: I10 Status: Acute Plan: Patient's bp persistently elevated. Will start amlodipine 10 mg po daily. Monitor vital signs Assessment and Plan (1) Seizure disorder Plan: Patient to the medical floor, patient has known seizure disorder. Neurologic consulted Continue neuro checks every 4 hours On the Keppra 750 mg by mouth every 12 hours (2) Rhabdomyolysis Plan: Due to seizure disorder and compulsions. Continue every fluid. CK initially trending up, today starts to trend down from [id number] - 5108. Continue to monitor CK daily and continue IV fluid administration. (3) Acute on chronic renal failure Plan: Likely secondary to rhabdomyolysis Creatinine is trending down. Continue to monitor BUN/creatinine, strict I's and O's and avoid nephrotoxins. Continue IV fluids Nephrology following (4) Anemia of chronic illness Plan: Hemoglobin seems to be stable when compared to other hospital visits. Continue to monitor and trend. (5) Leukocytosis Plan: Leukocytosis resolved, likely elevated secondary to stress due to seizure activity. (6) Hypokalemia Plan: Potassium was replaced. Continue to monitor potassium. Level normal - trending down - will give 20 meq of potassium orally. (7) Hypocalcemia Plan: Protein corrected calcium is within normal range. Continue to monitor BMP and replace as needed. (8) Headache Plan: Resolved. Continue with Tylenol as needed. (9) Nausea Plan: Resolved. Continue Zofran as needed (10) Anemia Plan: With MCV in the lower side of normal. Iron studies show low iron and TIBC , normal ferritin and % saturation. Likely due to HIV. (11) HIV (human immunodeficiency virus infection) Plan: Discussed with RN - will try to confirm medications to see if patient is being compliant with HIV medications. Patient does no know what medications he has been taking. 05/22 RN called patient's pharmacy - medications have not been filled since 2016. There is noncompliance - patient will need to follow up with the health department. 05/23 I called [facility] specialty pharmacy - last time patient filled his antiretroviral medications was on 06/21/2015. the prescribing physician then was nacho Dubon. Will try to contact him. Patient seems to be noncompliant. will not resume antiretrovirals until compliance is confirmed. Patient states that he has been compliant. GI prophylaxis: I will add PPI. DVT plexus: SCDs, continue heparin subcutaneously. Discharge Planning pending resolution of Rhabdomyolysis and renal clearance Problem Qualifiers (1) Rhabdomyolysis: Qualified Code: M62.82 - Non-traumatic rhabdomyolysis (2) Headache: Qualified Code: R51 - Nonintractable headache, unspecified chronicity pattern, unspecified headache type (3) Anemia: Qualified Code: D64.9 - Anemia, unspecified type Rodolfo Lara MD May 26, 2016 00:32
--- NOTE | 2016-05-26 00:52 | HHI.PR ---
Subjective Remarks deferred entry patient seen on 05/25 at 13:45 hrs Patient has no complaints BP noted to be low denies cp/sob denies cough denies fevers and chills Objective Vitals Vital Signs Date Time Temp Pulse Resp B/P Pulse Ox O2 Delivery O2 Flow Rate FiO2 05/25/16 20:05 91 05/25/16 20:00 99.7 95 18 117/83 97 05/25/16 16:00 99.0 88 16 89/57 99 05/25/16 12:00 99.0 95 16 85/60 99 05/25/16 10:13 115 05/25/16 10:13 115 05/25/16 08:00 99.9 103 16 95/59 99 05/25/16 06:01 100.8 101 18 139/98 98 05/25/16 01:25 18 05/25/16 00:33 99.0 79 18 125/91 94 I/O 05/25/16 05/25/16 05/25/16 05/26/16 05/26/16 05/26/16 07:00 15:00 23:00 07:00 15:00 23:00 Intake Total 1000 ml 480 ml 1615 ml Output Total 700 ml 540 ml 2500 ml Balance 300 ml -60 ml -885 ml Intake Oral 1000 ml 480 ml 480 ml IV Total 1135 ml Output Urine Total 700 ml 540 ml 2500 ml # Voids 2 # Bowel Movements 1 Result Diagram: 05/23/16 1603 05/25/16 1524 Imaging Last Impressions Renal Ultrasound 05/21/16 0000 Signed Impressions: Service Date/Time: Saturday, May 21, 2016 08:13 - CONCLUSION: Atrophic kidneys secondary to renal parenchymal disease with no obstructive uropathy Gilmar Benton MD Head CT 05/19/16 2310 Signed Impressions: Service Date/Time: Thursday, May 19, 2016 22:54 - CONCLUSION: No acute disease. Torito English MD Objective Remarks GENERAL: This is a well-nourished, well-developed patient, in no apparent distress. CARDIOVASCULAR: Regular rate and irregular rhythm without murmurs, gallops, or rubs. RESPIRATORY: Clear to auscultation. Breath sounds equal bilaterally. No wheezes , rales, or rhonchi. GASTROINTESTINAL: Abdomen soft, non-tender, nondistended. Normal, active bowel sounds MUSCULOSKELETAL: s/p bilateral BKA Procedures none Medications and IVs Current Medications Medications (Trade) Dose Ordered Sig/Moose Route Start Time Stop Time Status Last Admin (NS 1000 ml Inj) 1,000 ml @ 125 mls/hr Q8H IV 05/19/16 21:46 05/25/16 23:35 (NS Flush) 2 ml UNSCH PRN FLUSH 05/19/16 22:00 (NS Flush) 2 ml BID FLUSH 05/20/16 09:00 05/24/16 09:04 (Narcan Inj) 0.4 mg UNSCH PRN IV 05/19/16 22:00 (Heparin Inj) 5,000 units Q8H SQ 05/20/16 08:00 05/25/16 23:38 (Keppra) 750 mg Q12HR PO 05/20/16 21:00 05/25/16 20:16 (Tylenol) 650 mg Q4H PRN PO 05/21/16 10:15 05/25/16 09:33 (Zofran Inj) 4 mg Q6H PRN IV PUSH 05/21/16 10:15 05/21/16 11:35 (Protonix) 40 mg DAILY PO 05/21/16 11:00 05/25/16 08:23 (K-Phos Neutral) 250 mg Q8HR PO 05/23/16 18:00 05/25/16 20:16 (Norvasc) 10 mg DAILY PO 05/24/16 11:00 05/25/16 08:23 Lorazepam 1 mg 1 mg Q5M PRN IM/IV 05/25/16 03:50 Calcium Chloride 2 gm/Sodium Chloride 120 ml @ 120 mls/hr ONCE ONCE IV 05/25/16 23:30 05/26/16 00:29 (KCl 20 Meq Premix Inj) 100 ml @ 50 mls/hr BOLUS ONCE IV 05/25/16 23:30 05/26/16 01:29 05/25/16 23:35 Urinary Catheter: No Vascular Central Line Catheter: No A/P Problem List: (1) Seizure disorder ICD Code: 780.39 Status: Chronic (2) Rhabdomyolysis ICD Code: M62.82 Status: Acute (3) Acute on chronic renal failure ICD Code: N17.9 Status: Acute (4) Anemia of chronic illness ICD Code: D63.8 Status: Chronic (5) Leukocytosis ICD Code: D72.829 Status: Chronic (6) Hypocalcemia ICD Code: E83.51 Status: Acute (7) Headache ICD Code: R51 Status: Acute (8) Nausea ICD Code: R11.0 Status: Resolved (9) Anemia ICD Code: D64.9 Status: Chronic (10) HIV (human immunodeficiency virus infection) ICD Code: Z21 Status: Acute (11) HTN (hypertension) ICD Code: I10 Status: Acute Plan: DC amlodipine, continue IV fluids. (12) Hypokalemia ICD Code: E87.6 Status: Acute Plan: K 3.1 - Will replace with KCL IV bolus and with oral potassium. Continue to monitor BMP. Assessment and Plan (1) Seizure disorder Plan: Patient to the medical floor, patient has known seizure disorder. Neurologic consulted Continue neuro checks every 4 hours On the Keppra 750 mg by mouth every 12 hours No further seizures (2) Rhabdomyolysis Plan: Due to seizure disorder and compulsions. Continue every fluid. CK trending down - now 874 Continue to monitor CK daily and continue IV fluid administration. (3) Acute on chronic renal failure Plan: Likely secondary to rhabdomyolysis Continue to monitor BUN/creatinine, strict I's and O's and avoid nephrotoxins. Continue IV fluids Nephrology following 05/25 worsening creatinine now 4.2 form 3.6 likely due to hemodynamic instability. Patient has very good urine output. Continue IV normal saline - will give a bolus of 500 ml of normal saline due to hypotension. (4) Anemia of chronic illness Plan: Hemoglobin seems to be stable when compared to other hospital visits. Continue to monitor and trend. (5) Leukocytosis Plan: Leukocytosis resolved, likely elevated secondary to stress due to seizure activity. (6) Hypokalemia Plan: Potassium was replaced. Continue to monitor potassium. Level normal - trending down - will give 20 meq of potassium orally. (7) Hypocalcemia Plan: Protein corrected calcium is within normal range. Continue to monitor BMP and replace as needed. (8) Headache Plan: Resolved. Continue with Tylenol as needed. (9) Nausea Plan: Resolved. Continue Zofran as needed (10) Anemia Plan: With MCV in the lower side of normal. Iron studies show low iron and TIBC , normal ferritin and % saturation. Likely due to HIV. (11) HIV (human immunodeficiency virus infection) Plan: Discussed with RN - will try to confirm medications to see if patient is being compliant with HIV medications. Patient does no know what medications he has been taking. 05/22 RN called patient's pharmacy - medications have not been filled since 2015. There is noncompliance - patient will need to follow up with the health department. 05/23 I called [facility] specialty pharmacy - last time patient filled his antiretroviral medications was on 06/21/2015. the prescribing physician then was nacho Dubon. Will try to contact him. Patient seems to be noncompliant. will not resume antiretrovirals until compliance is confirmed. Patient states that he has been compliant. GI prophylaxis: I will add PPI. DVT plexus: SCDs, continue heparin subcutaneously. Discharge Planning pending resolution of Rhabdomyolysis and renal clearance Problem Qualifiers (1) Rhabdomyolysis: Qualified Code: M62.82 - Non-traumatic rhabdomyolysis (2) Headache: Qualified Code: R51 - Nonintractable headache, unspecified chronicity pattern, unspecified headache type (3) Anemia: Qualified Code: D64.9 - Anemia, unspecified type Rodolfo Lara MD May 26, 2016 00:52
[2016-05-26] MEDS ORDERED: SODIUM CHLORID 0.9% 500 ML INJ 500 ML IV ONE (01:00)
[2016-05-26] MEDS: ACETAMINOPHEN 325 MG TAB PO PRN (03:45)
[2016-05-26] MEDS: POTASSIUM PHOSPHATE/SODIUM PHOSPHATE 250 MG TAB PO SCH ×3 (05:12→20:27)
[2016-05-26] MEDS: SODIUM CHLOR 0.9% 1000 ML INJ 1,000 ML IV SCH ×2 (05:13→20:35)
[2016-05-26 07:49] LABS: ANION GAP 13 MEQ/L (5-15); BICARBONATE 16.1 MEQ/L (21.0-32.0); BLOOD UREA NITROGEN 24 MG/DL (7-18); CHLORIDE 111 MEQ/L (98-107); CREATINE KINASE 512 U/L (39-308); GLOMERULAR FILTRATION RATE 23 ML/MIN (>89); POTASSIUM 3.7 MEQ/L (3.5-5.1); SODIUM (NA) 140 MEQ/L (136-145)
[2016-05-26 08:05] LABS: CKMB LESS THAN 0.5 NG/ML (0.5-3.6)
[2016-05-26] MEDS: PANTOPRAZOLE SOD 40 MG DELAYED RELEASE TAB PO SCH (08:37)
[2016-05-26] MEDS: levETIRAcetam 250 MG TAB PO SCH ×2 (08:37→20:27)
[2016-05-26] MEDS: HEPARIN SODIUM - SQ 10,000 UNITS/ML VIAL SQ SCH ×2 (08:38→16:00)
[2016-05-26] MEDS: SODIUM CHLORIDE 0.9% FLUSH 5 ML FLUSH FLUSH SCH ×2 (08:38→20:26)
--- NOTE | 2016-05-26 09:46 | HHI.NPPN ---
Subjective General Problems: Anemia Renal Failure: Chronic, Acute, Stage IV History of Present Illness 25-year-old male with past medical history of peripheral vascular disease, history of HIV, lymphoma, chronic kidney disease, seizure disorder who was admitted to the hospital with seizure. I was called to see the patient because of elevated BUN and creatinine. The patient has known history of chronic kidney disease. Additional Remarks Patient is alert, no more seizure, no SOB. Review of Systems General Constitutional: Fatigue Gastrointestinal Gastrointestinal: Nausea & Vomiting Objective Data Data 05/25/16 05/26/16 19:00 07:00 Intake Total 1615 ml 480 ml Output Total 540 ml 2900 ml Balance 1075 ml -2420 ml Intake Oral 480 ml 480 ml IV Total 1135 ml Output Urine Total 540 ml 2900 ml # Bowel Movements 1 0 Vital Signs Date Time Temp Pulse Resp B/P Pulse Ox O2 Delivery O2 Flow Rate FiO2 05/26/16 04:45 18 05/26/16 04:00 101.4 103 18 120/83 99 05/26/16 00:00 99.6 98 17 106/76 97 05/25/16 20:05 91 05/25/16 20:00 99.7 95 18 117/83 97 05/25/16 16:00 99.0 88 16 89/57 99 05/25/16 12:00 99.0 95 16 85/60 99 05/25/16 10:13 115 05/25/16 10:13 115 -: 05/23/16 1603 05/26/16 0620 Microbiology 05/25/16 Stool Occult Blood (JOSE) - Final, Complete HEMOCCULT NEGATIVE Physical Exam General Appearance: No Acute Distress, Comfortable Eyes Eye Exam: Pupils Equal Throat Throat Exam: Oral Mucosa [place] & Moist Neck Neck Exam: Neck Supple Pulmonary Resp Exam: Clear Bilaterally, Breath Sounds Equal, No Distress, Decreased Bases Cardiology CV Exam: Regular Gastrointestinal/Abdomen GI Exam: Soft, Non-Tender, Bowel Sounds Present, Non-Distended Genitourinary Exam: Clear Urine Extremeties Extremeties Remarks Bilateral BKA, and left below elbow amputation. 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 There is an element of KVNG, possibly due to Rhabdomyolysis. K was low, replaced, and now Mg low, Po4 is better. Hco3 also drop, if stays low, will add PO. Problem Qualifiers (1) Headache: Qualified Code: R51 - Nonintractable headache, unspecified chronicity pattern, unspecified headache type (2) Rhabdomyolysis: Qualified Code: M62.82 - Non-traumatic rhabdomyolysis (3) Acute renal failure: Qualified Code: N17.9 - Acute renal failure, unspecified acute renal failure type Levi Solis MD May 26, 2016 09:46
--- NOTE | 2016-05-26 11:16 | RADRPT ---
EXAM DATE/TIME: 05/26/2016 10:32 [place] COMPARISON: No previous studies available for comparison. INDICATIONS : Fever MEDICAL HISTORY : None. SURGICAL HISTORY : None. ENCOUNTER: Initial ACUITY: 1 day PAIN SCORE: 0/10 LOCATION: Bilateral chest FINDINGS: PA and lateral views of the chest demonstrate the lungs to be symmetrically aerated without evidence of mass, infiltrate or effusion. The cardiomediastinal contours are unremarkable. Osseous structure s are intact. CONCLUSION: No acute disease. Jeffrey Hawthorne MD on May 26, 2016 at 11:14 Board Certified Radiologist. This report was verified electronically.
[2016-05-26] MEDS: MAGNESIUM SULFATE 1 GM PREMIX 100 ML IV SCH ×2 (13:08→14:39)
[2016-05-26 17:18] LABS: BACTERIA, URINE RARE /hpf; BLOOD, URINE SMALL (NEG); COMMENT (UR) CULT NOT INDICATED; CULTURE IF INDICATED CULT NOT INDICATED; GLUCOSE,URINE TRACE mg/dL (NEG); KETONE, URINE NEG (NEG); MUCUS URINE FEW /lpf (OCC); NITRITE,URINE NEG (NEG); URINE COLOR COLORLESS (YELLW/STRAW)
[2016-05-27] VITALS (7 sets, daily range): BP systolic 92–118; BP diastolic 68–85; PULSE 75–88; RESP 16–18; TEMP 97.5–99.3; O2SAT 97–100
[2016-05-27] MEDS: HEPARIN SODIUM - SQ 10,000 UNITS/ML VIAL SQ SCH ×3 (01:34→16:35)
[2016-05-27] MEDS: SODIUM CHLOR 0.9% 1000 ML INJ 1,000 ML IV SCH ×2 (04:40→13:30)
[2016-05-27] MEDS: POTASSIUM PHOSPHATE/SODIUM PHOSPHATE 250 MG TAB PO SCH ×3 (05:40→20:54)
[2016-05-27] MEDS: SODIUM CHLORIDE 0.9% FLUSH 5 ML FLUSH FLUSH SCH ×2 (08:46→20:54)
[2016-05-27] MEDS: levETIRAcetam 250 MG TAB PO SCH ×2 (08:46→20:53)
[2016-05-27] MEDS: PANTOPRAZOLE SOD 40 MG DELAYED RELEASE TAB PO SCH (08:46)
--- NOTE | 2016-05-27 10:01 | HHI.NPPN ---
Subjective General Problems: Anemia Renal Failure: Chronic, Acute, Stage IV History of Present Illness 25-year-old male with past medical history of peripheral vascular disease, history of HIV, lymphoma, chronic kidney disease, seizure disorder who was admitted to the hospital with seizure. I was called to see the patient because of elevated BUN and creatinine. The patient has known history of chronic kidney disease. Additional Remarks Patient is alert, eating well, no SOB, no vomiting. Review of Systems General Constitutional: Fatigue Gastrointestinal Gastrointestinal: Nausea & Vomiting Objective Data Data 05/26/16 05/27/16 19:00 07:00 Intake Total 163 ml 960 ml Output Total 200 ml 1700 ml Balance -37 ml -740 ml Intake Oral 960 ml IV Total 163 ml Output Urine Total 200 ml 1700 ml Vital Signs Date Time Temp Pulse Resp B/P Pulse Ox O2 Delivery O2 Flow Rate FiO2 05/27/16 04:00 98.6 84 17 118/85 100 05/27/16 00:00 99.3 88 17 107/76 97 05/26/16 20:03 100 05/26/16 20:00 99.9 100 18 93/57 96 05/26/16 16:00 98.7 75 18 108/75 99 05/26/16 12:00 98.8 82 16 112/67 99 -: 05/23/16 1603 05/26/16 0620 Microbiology 05/26/16 Aerobic Blood Culture, Received Pending 05/26/16 Anaerobic Blood Culture, Received Pending 05/26/16 Aerobic Blood Culture, Received Pending 05/26/16 Anaerobic Blood Culture, Received Pending Physical Exam General Appearance: No Acute Distress, Comfortable Eyes Eye Exam: Pupils Equal Throat Throat Exam: Oral Mucosa [place] & Moist Neck Neck Exam: Neck Supple Pulmonary Resp Exam: Clear Bilaterally, Breath Sounds Equal, No Distress, Decreased Bases Cardiology CV Exam: Regular Gastrointestinal/Abdomen GI Exam: Soft, Non-Tender, Bowel Sounds Present, Non-Distended Genitourinary Exam: Clear Urine Extremeties Extremeties Remarks Bilateral BKA, and left below elbow amputation. 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 There is an element of KVNG, possibly due to Rhabdomyolysis. No new BMP. Creatinine was in the range of 3.6-3.8, possibly baseline. If D/C will need out patient follow up. Problem Qualifiers (1) Headache: Qualified Code: R51 - Nonintractable headache, unspecified chronicity pattern, unspecified headache type (2) Rhabdomyolysis: Qualified Code: M62.82 - Non-traumatic rhabdomyolysis (3) Acute renal failure: Qualified Code: N17.9 - Acute renal failure, unspecified acute renal failure type Levi Solis MD May 27, 2016 10:01
--- NOTE | 2016-05-27 11:47 | HHI.PR ---
Subjective Remarks Patient wants to go home had low grade fever overnight Objective Vitals Vital Signs Date Time Temp Pulse Resp B/P Pulse Ox O2 Delivery O2 Flow Rate FiO2 05/27/16 08:00 98.7 85 16 94/68 99 05/27/16 04:00 98.6 84 17 118/85 100 05/27/16 00:00 99.3 88 17 107/76 97 05/26/16 20:03 100 05/26/16 20:00 99.9 100 18 93/57 96 05/26/16 16:00 98.7 75 18 108/75 99 05/26/16 12:00 98.8 82 16 112/67 99 I/O 05/26/16 05/26/16 05/26/16 05/27/16 05/27/16 05/27/16 07:00 15:00 23:00 07:00 15:00 23:00 Intake Total 163 ml 480 ml 480 ml 1928 ml Output Total 400 ml 200 ml 425 ml 1275 ml Balance -400 ml -37 ml 55 ml -795 ml 1928 ml Intake Oral 480 ml 480 ml IV Total 163 ml 1928 ml Output Urine Total 400 ml 200 ml 425 ml 1275 ml Result Diagram: 05/23/16 1603 05/26/16 0620 Imaging Last Impressions Chest X-Ray 05/26/16 0000 Signed Impressions: Service Date/Time: Thursday, May 26, 2016 10:32 - CONCLUSION: No acute disease. Jeffrey Hawthorne MD Renal Ultrasound 05/21/16 0000 Signed Impressions: Service Date/Time: Saturday, May 21, 2016 08:13 - CONCLUSION: Atrophic kidneys secondary to renal parenchymal disease with no obstructive uropathy Gilmar Benton MD Head CT 05/19/16 2310 Signed Impressions: Service Date/Time: Thursday, May 19, 2016 22:54 - CONCLUSION: No acute disease. Torito English MD Objective Remarks GENERAL: This is a well-nourished, well-developed patient, in no apparent distress. CARDIOVASCULAR: Regular rate and irregular rhythm without murmurs, gallops, or rubs. RESPIRATORY: Clear to auscultation. Breath sounds equal bilaterally. No wheezes , rales, or rhonchi. GASTROINTESTINAL: Abdomen soft, non-tender, nondistended. Normal, active bowel sounds MUSCULOSKELETAL: s/p bilateral BKA Procedures none Medications and IVs Current Medications Medications (Trade) Dose Ordered Sig/Moose Route Start Time Stop Time Status Last Admin (NS 1000 ml Inj) 1,000 ml @ 125 mls/hr Q8H IV 05/19/16 21:46 05/27/16 13:30 (NS Flush) 2 ml UNSCH PRN FLUSH 05/19/16 22:00 (NS Flush) 2 ml BID FLUSH 05/20/16 09:00 05/26/16 08:38 (Narcan Inj) 0.4 mg UNSCH PRN IV 05/19/16 22:00 (Heparin Inj) 5,000 units Q8H SQ 05/20/16 08:00 05/27/16 16:35 (Keppra) 750 mg Q12HR PO 05/20/16 21:00 05/27/16 08:46 (Tylenol) 650 mg Q4H PRN PO 05/21/16 10:15 05/26/16 03:45 (Zofran Inj) 4 mg Q6H PRN IV PUSH 05/21/16 10:15 05/21/16 11:35 (Protonix) 40 mg DAILY PO 05/21/16 11:00 05/27/16 08:46 (K-Phos Neutral) 250 mg Q8HR PO 05/23/16 18:00 05/27/16 13:30 (Ativan Inj) 1 mg Q5M PRN IM/IV 05/25/16 03:50 Urinary Catheter: No Vascular Central Line Catheter: No A/P Problem List: (1) Hypocalcemia ICD Code: E83.51 Status: Acute (2) Seizure disorder ICD Code: 780.39 Status: Chronic (3) Rhabdomyolysis ICD Code: M62.82 Status: Resolved (4) Acute on chronic renal failure ICD Code: N17.9 Status: Resolved (5) Anemia of chronic illness ICD Code: D63.8 Status: Chronic (6) Leukocytosis ICD Code: D72.829 Status: Chronic (7) Headache ICD Code: R51 Status: Resolved (8) Nausea ICD Code: R11.0 Status: Resolved (9) Anemia ICD Code: D64.9 Status: Chronic (10) HIV (human immunodeficiency virus infection) ICD Code: Z21 Status: Chronic (11) HTN (hypertension) ICD Code: I10 Status: Resolved (12) Hypokalemia ICD Code: E87.6 Status: Resolved (13) CKD (chronic kidney disease) stage 4, GFR 15-29 ml/min ICD Code: N18.4 Status: Acute (14) Fever ICD Code: R50.9 Status: Acute Plan: Patient status post fever with a MAXIMUM TEMPERATURE of 101.4 on . Chest x-ray, urinalysis and blood cultures ordered. Chest x-ray negative for infiltrate, reviewed by me. Urinalysis negative for UTI. Blood cultures negative 1 day. Unclear source of fever. Possibly secondary to HIV. Continue to monitor off antibiotics. Continue to monitor vital signs - if fever persists then will consult ID. Assessment and Plan (1) Seizure disorder Plan: Patient to the medical floor, patient has known seizure disorder. Neurologic consulted Continue neuro checks every 4 hours On the Keppra 750 mg by mouth every 12 hours No further seizures (2) Rhabdomyolysis Plan: Due to seizure disorder and compulsions. Continue every fluid. CK now normal - DC IV fluids DC IV fluids (3) Acute on chronic renal failure Plan: Likely secondary to rhabdomyolysis Continue to monitor BUN/creatinine, strict I's and O's and avoid nephrotoxins. Continue IV fluids Nephrology following 05/25 worsening creatinine now 4.2 form 3.6 likely due to hemodynamic instability. Patient has very good urine output. Continue IV normal saline - will give a bolus of 500 ml of normal saline due to hypotension. 05/27 improved creatinine down to 3.9. Patient has CK V stage for, likely baseline creatinine is 3.6 to 3.9. Nephrology following. Discontinue IV fluids. (4) Anemia of chronic illness Plan: Hemoglobin seems to be stable when compared to other hospital visits. Continue to monitor and trend. With MCV in the lower side of normal. Iron studies show low iron and TIBC, normal ferritin and % saturation. Likely due to HIV. (5) Leukocytosis Plan: Leukocytosis resolved, likely elevated secondary to stress due to seizure activity. (6) Hypokalemia Plan: Potassium was replaced. Continue to monitor potassium. Level normal - 3.5 will give 30 meq of KCL (7) Hypocalcemia Plan: Protein corrected calcium is within normal range. Continue to monitor BMP and replace as needed. 05/27 Calcium low (7.6 protein corrected) - Will replace with 2 grams of Calcium Chloride (8) Headache Plan: Resolved. Continue with Tylenol as needed. (9) Nausea Plan: Resolved. Continue Zofran as needed (10) HIV (human immunodeficiency virus infection) Plan: Discussed with RN - will try to confirm medications to see if patient is being compliant with HIV medications. Patient does no know what medications he has been taking. 05/22 RN called patient's pharmacy - medications have not been filled since 2015. There is noncompliance - patient will need to follow up with the health department. 05/23 I called [facility] specialty pharmacy - last time patient filled his antiretroviral medications was on 06/21/2015. the prescribing physician then was nacho Dubon. Will try to contact him. Patient seems to be noncompliant. will not resume antiretrovirals until compliance is confirmed. Patient states that he has been compliant. GI prophylaxis: I will add PPI. DVT plexus: SCDs, continue heparin subcutaneously. Discharge Planning pending resolution of Rhabdomyolysis and renal clearance Problem Qualifiers (1) Rhabdomyolysis: Qualified Code: M62.82 - Non-traumatic rhabdomyolysis (2) Headache: Qualified Code: R51 - Nonintractable headache, unspecified chronicity pattern, unspecified headache type (3) Anemia: Qualified Code: D64.9 - Anemia, unspecified type (4) Fever: Qualified Code: R50.9 - Fever, unspecified fever cause Rodolfo Lara MD May 27, 2016 11:47
[2016-05-27 12:29] LABS: HEMATOCRIT 29.7 % (39.0-51.0); MEAN CELL VOLUME 79.9 FL (80.0-100.0); MEAN CORPUSCULAR HEMOGLOBIN 25.2 PG (27.0-34.0); MEAN CORPUSCULAR HGB CONC 31.5 % (32.0-36.0); PLATELET COUNT 270 TH/MM3 (150-450); RED BLOOD COUNT 3.72 MIL/MM3 (4.50-5.90); WHITE BLOOD COUNT 10.5 TH/MM3 (4.0-11.0)
[2016-05-27 12:30] LABS: HEMO FLAGS AUTO DIFF
[2016-05-27 12:57] LABS: BANDS 6 % (0-6); EOSINOPHILS 4 % (0-4); NEUTROPHIL # MANUAL DIFF 7.5 TH/MM3 (1.8-7.7); POLYS (SEG NEUTROPHILS) 65 % (16-70); WBC DIFF SAMPLE 100
[2016-05-27 12:58] LABS: TARGET CELLS 1+ (NORMAL)
[2016-05-27 12:59] LABS: HOWELL-JOLLY BODIES PRESENT (NONE SEEN); KERATOCYTES OCC (NORMAL)
[2016-05-27 13:02] LABS: PLATELET ESTIMATE SMEAR NORMAL (NORMAL); PLATELET MORPHOLOGY NORMAL (NORMAL); SCAN/DIFF FINAL DIFF MANUAL
[2016-05-27 13:04] LABS: BICARBONATE 18.4 MEQ/L (21.0-32.0); CALCIUM-PROTEIN CORRECTED 7.6 MG/DL (8.5-10.1); MAGNESIUM 1.8 MG/DL (1.5-2.5); POTASSIUM 3.5 MEQ/L (3.5-5.1); TOTAL BILIRUBIN ADULT 0.2 MG/DL (0.2-1.0)
[2016-05-27] MEDS ORDERED: POTASSIUM CHLORIDE 10 MEQ CONTROLLED RELEASE TAB PO ONE (17:00)
[2016-05-27] MEDS ORDERED: CALCIUM CHLORIDE INJ 2 GM in SODIUM CHLORIDE 0.9% INJ 100 ML IV ONE (18:00)
[2016-05-28 00:20] VITALS: BP 135/96; PULSE 76; RESP 16; TEMP 98.4; O2SAT 98
[2016-05-28] MEDS: HEPARIN SODIUM - SQ 10,000 UNITS/ML VIAL SQ SCH ×2 (00:21→08:00)
[2016-05-28] MEDS: ACETAMINOPHEN 325 MG TAB PO PRN (01:43)
[2016-05-28 04:00] VITALS: BP 108/75; PULSE 73; RESP 16; TEMP 97.3; O2SAT 99
[2016-05-28] MEDS: POTASSIUM PHOSPHATE/SODIUM PHOSPHATE 250 MG TAB PO SCH ×2 (05:10→14:00)
[2016-05-28 07:50] VITALS: BP 112/82; PULSE 79; RESP 20; TEMP 96.3; O2SAT 100
[2016-05-28 08:04] LABS: HEMATOCRIT 30.8 % (39.0-51.0); MEAN CELL VOLUME 80.2 FL (80.0-100.0); MEAN CORPUSCULAR HEMOGLOBIN 25.5 PG (27.0-34.0); MEAN CORPUSCULAR HGB CONC 31.8 % (32.0-36.0); PLATELET COUNT 285 TH/MM3 (150-450); RED BLOOD COUNT 3.84 MIL/MM3 (4.50-5.90); RED CELL DISTRIBUTION WIDTH 14.6 % (11.6-17.2); REVIEW FLAG FINAL; WHITE BLOOD COUNT 9.4 TH/MM3 (4.0-11.0)
[2016-05-28 08:24] LABS: BICARBONATE 18.3 MEQ/L (21.0-32.0); MAGNESIUM 1.6 MG/DL (1.5-2.5); POTASSIUM 3.9 MEQ/L (3.5-5.1)
[2016-05-28] MEDS: PANTOPRAZOLE SOD 40 MG DELAYED RELEASE TAB PO SCH (09:15)
[2016-05-28] MEDS: SODIUM CHLORIDE 0.9% FLUSH 5 ML FLUSH FLUSH SCH (09:20)
[2016-05-28] MEDS: levETIRAcetam 250 MG TAB PO SCH (09:20)
--- NOTE | 2016-05-28 10:13 | HHI.NPPN ---
Subjective General Problems: Anemia Renal Failure: Chronic, Acute, Stage IV History of Present Illness 25-year-old male with past medical history of peripheral vascular disease, history of HIV, lymphoma, chronic kidney disease, seizure disorder who was admitted to the hospital with seizure. I was called to see the patient because of elevated BUN and creatinine. The patient has known history of chronic kidney disease. Additional Remarks Patient is alert, eating well, no SOB, clinically same, getting ready to go home. Review of Systems General Constitutional: Fatigue Gastrointestinal Gastrointestinal: Nausea & Vomiting Objective Data Data 05/27/16 05/28/16 19:00 07:00 Intake Total 5071 ml 1000 ml Output Total 2000 ml 660 ml Balance 3071 ml 340 ml Intake Oral 480 ml 1000 ml IV Total 4591 ml Output Urine Total 2000 ml 660 ml # Bowel Movements 0 Vital Signs Date Time Temp Pulse Resp B/P Pulse Ox O2 Delivery O2 Flow Rate FiO2 05/28/16 07:50 96.3 79 20 112/82 100 05/28/16 04:00 97.3 73 16 108/75 99 05/28/16 00:20 98.4 76 16 135/96 98 05/27/16 20:02 83 05/27/16 20:00 98.0 75 16 109/85 99 05/27/16 16:00 97.5 76 18 92/69 100 05/27/16 12:00 98.4 83 18 102/71 98 -: 05/28/16 0732 05/28/16 0732 Physical Exam General Appearance: No Acute Distress, Comfortable Eyes Eye Exam: Pupils Equal Throat Throat Exam: Oral Mucosa Bogard & Moist Neck Neck Exam: Neck Supple Pulmonary Resp Exam: Clear Bilaterally, Breath Sounds Equal, No Distress, Decreased Bases Cardiology CV Exam: Regular Gastrointestinal/Abdomen GI Exam: Soft, Non-Tender, Bowel Sounds Present, Non-Distended Genitourinary Exam: Clear Urine Extremeties Extremeties Remarks Bilateral BKA, and left below elbow amputation. 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 There is an element of KVNG, possibly due to Rhabdomyolysis. Creatinine increase again slightly. Told to drink more fluid. He has advance stage 4 chronic kidney disease. Also told to avoid NSAID and follow with Nephrology. Problem Qualifiers (1) Headache: Qualified Code: R51 - Nonintractable headache, unspecified chronicity pattern, unspecified headache type (2) Rhabdomyolysis: Qualified Code: M62.82 - Non-traumatic rhabdomyolysis (3) Acute renal failure: Qualified Code: N17.9 - Acute renal failure, unspecified acute renal failure type Levi Solis MD May 28, 2016 10:13
[2016-05-28 11:13] VITALS: PULSE 74
[2016-05-28 11:50] VITALS: BP 93/57; PULSE 75; RESP 20; TEMP 98.1; O2SAT 98
[2016-05-28] MEDS ORDERED: LEVE250 PO (13:44)
--- NOTE | 2016-05-28 13:45 | HHI.DCPOC ---
Discharge Care Plan Diagnosis: (1) Acute on chronic renal failure (2) CKD (chronic kidney disease) stage 4, GFR 15-29 ml/min (3) HIV (human immunodeficiency virus infection) (4) HTN (hypertension) (5) Rhabdomyolysis (6) Hypokalemia Goals to Promote Your Health * To prevent worsening of your condition and complications * To maintain your health at the optimal level Directions to Meet Your Goals Take your medications as prescribed Follow your dietary instruction Follow activity as directed Keep your appointments as scheduled Take your immunizations and boosters as scheduled If your symptoms worsen call your PCP, if no PCP go to Urgent Care Center or Emergency Room Smoking is Dangerous to Your Health. Avoid second hand smoke Call the 24-hour hour crisis hotline for domestic abuse at Rodolfo Lara MD May 28, 2016 13:45
--- NOTE | 2016-05-28 13:52 | HHI.DS ---
Discharge Summary Admission Date May 19, 2016 at 21:47 Discharge Date: May 28, 2016 Admitting Diagnosis SEIZURES, ELEVATED BUN/CR (1) Hypocalcemia ICD Code: E83.51 Diagnosis: Principal (2) Seizure disorder ICD Code: 780.39 Diagnosis: Principal (3) Rhabdomyolysis ICD Code: M62.82 Diagnosis: Principal (4) Acute on chronic renal failure ICD Code: N17.9 Diagnosis: Principal (5) Anemia of chronic illness ICD Code: D63.8 Diagnosis: Secondary (6) Leukocytosis ICD Code: D72.829 Diagnosis: Principal (7) Headache ICD Code: R51 Diagnosis: Principal (8) Nausea ICD Code: R11.0 Diagnosis: Principal (9) HIV (human immunodeficiency virus infection) ICD Code: Z21 Diagnosis: Secondary (10) HTN (hypertension) ICD Code: I10 Diagnosis: Principal (11) Hypokalemia ICD Code: E87.6 Diagnosis: Principal (12) CKD (chronic kidney disease) stage 4, GFR 15-29 ml/min ICD Code: N18.4 Diagnosis: Principal (13) Fever ICD Code: R50.9 Diagnosis: Principal Procedures none Brief History - From Admission Mr. Yu is a 25 year-old male with a history of lymphoma, HIV, CKD, and seizures who presented to the emergency room for evaluation of a witnessed seizure that lasted about [address] is negative for acute disease. Multiple electrolyte abnormalities noted on blood work. He is admitted for observation. The patient is seen in his hospital room; he states that he was walking to the store and had a seizure. Last seizure occurred about a year ago. He adamantly denies Flakka use and states he is angry that anybody suggests he has ever done anything like that. [place] through this interview, he shuts down and stops talking and covers his head with a blanket. Patient denies dizziness, shortness of breath, chest pain, syncope, black or tarry stools, diarrhea, nausea, vomiting, hematuria, dysuria. . CBC/BMP: 05/28/16 0732 05/28/16 0732 Significant Findings Laboratory Tests Test 05/25/16 05/26/16 05/26/16 05/27/16 15:24 06:20 17:00 12:01 Potassium Level 3.1 MEQ/L (3.5-5.1) Chloride Level 109 MEQ/L 111 MEQ/L 110 MEQ/L (98-107) (98-107) (98-107) Carbon Dioxide Level 20.3 MEQ/L 16.1 MEQ/L 18.4 MEQ/L (21.0-32.0) (21.0-32.0) (21.0-32.0) Blood Urea Nitrogen 28 MG/DL (7-18) 24 MG/DL (7-18) 28 MG/DL (7-18) Creatinine 4.26 MG/DL 3.83 MG/DL 3.96 MG/DL (0.60-1.30) (0.60-1.30) (0.60-1.30) Estimat Glomerular Filtration 20 ML/MIN (>89) 23 ML/MIN (>89) 22 ML/MIN (>89) Rate Calcium Level 6.8 MG/DL 7.4 MG/DL (8.5-10.1) (8.5-10.1) Protein Corrected Calcium 7.1 MG/DL 7.6 MG/DL (8.5-10.1) (8.5-10.1) Total Creatine Kinase 874 U/L 512 U/L (39-308) (39-308) Creatine Kinase MB LESS THAN 0.5 LESS THAN 0.5 NG/ML (0.5-3.6) NG/ML (0.5-3.6) Phosphorus Level 5.3 MG/DL (2.5-4.9) Magnesium Level 1.0 MG/DL (1.5-2.5) Urine Protein 30 mg/dL (NEG-TRACE) Urine Occult Blood SMALL (NEG) Urine Bacteria RARE /hpf (NONE) Urine Mucus FEW /lpf (OCC) Red Blood Count 3.72 MIL/MM3 (4.50-5.90) Hemoglobin 9.4 GM/DL (13.0-17.0) Hematocrit 29.7 % (39.0-51.0) Mean Corpuscular Volume 79.9 FL (80.0-100.0) Mean Corpuscular Hemoglobin 25.2 PG (27.0-34.0) Mean Corpuscular Hemoglobin 31.5 % Concent (32.0-36.0) Monocytes % 11 % (0-8) Target Cells 1+ (NORMAL) Aspartate Amino Transf 65 U/L (15-37) (AST/SGOT) Alanine Aminotransferase 81 U/L (12-78) (ALT/SGPT) Albumin 2.9 GM/DL (3.4-5.0) Test 05/28/16 07:32 Red Blood Count 3.84 MIL/MM3 (4.50-5.90) Hemoglobin 9.8 GM/DL (13.0-17.0) Hematocrit 30.8 % (39.0-51.0) Mean Corpuscular Hemoglobin 25.5 PG (27.0-34.0) Mean Corpuscular Hemoglobin 31.8 % Concent (32.0-36.0) Carbon Dioxide Level 18.3 MEQ/L (21.0-32.0) Blood Urea Nitrogen 32 MG/DL (7-18) Creatinine 4.12 MG/DL (0.60-1.30) Estimat Glomerular Filtration 21 ML/MIN (>89) Rate Calcium Level 8.3 MG/DL (8.5-10.1) Phosphorus Level 7.7 MG/DL (2.5-4.9) Imaging Last Impressions Chest X-Ray 05/26/16 0000 Signed Impressions: Service Date/Time: Thursday, May 26, 2016 10:32 - CONCLUSION: No acute disease. Jeffrey Hawthorne MD Renal Ultrasound 05/21/16 0000 Signed Impressions: Service Date/Time: Saturday, May 21, 2016 08:13 - CONCLUSION: Atrophic kidneys secondary to renal parenchymal disease with no obstructive uropathy Gilmar Benton MD Head CT 05/19/16 2310 Signed Impressions: Service Date/Time: Thursday, May 19, 2016 22:54 - CONCLUSION: No acute disease. Torito English MD PE at Discharge GENERAL: This is a well-nourished, well-developed patient, in no apparent distress. CARDIOVASCULAR: Regular rate and irregular rhythm without murmurs, gallops, or rubs. RESPIRATORY: Clear to auscultation. Breath sounds equal bilaterally. No wheezes , rales, or rhonchi. GASTROINTESTINAL: Abdomen soft, non-tender, nondistended. Normal, active bowel sounds MUSCULOSKELETAL: s/p bilateral BKA Hospital Course (1) Seizure disorder Patient was admitted to the medical floor, patient has known seizure disorder. Neurologic consulted neuro checks every 4 hours Rx'd Keppra 750 mg by mouth every 12 hours No further seizures (2) Rhabdomyolysis Due to seizure disorder and compulsions. sp treatment with IV fluids. CK trended, normalized after IVF. (3) Acute on chronic renal failure Likely secondary to rhabdomyolysis Continue to monitor BUN/creatinine, strict I's and O's and avoid nephrotoxins. IVF Nephrology following 05/25 worsening creatinine now 4.2 form 3.6 likely due to hemodynamic instability. Patient has very good urine output. Continue IV normal saline - will give a bolus of 500 ml of normal saline due to hypotension. 05/27 improved creatinine down to 3.9. Patient has CKD stage 4, likely baseline creatinine is 3.6 to 3.9. Nephrology following. Discontinue IV fluids. (4) Anemia of chronic illness Hemoglobin seems to be stable when compared to other hospital visits. Continue to monitor and trend. With MCV in the lower side of normal. Iron studies show low iron and TIBC, normal ferritin and % saturation. Likely due to HIV. (5) Leukocytosis Leukocytosis resolved, likely elevated secondary to stress due to seizure activity/stress. (6) Hypokalemia Potassium was replaced. Continue to monitor potassium. Level normal - 3.5 will give 30 meq of KCL (7) Hypocalcemia Protein corrected calcium is within normal range. Continue to monitor BMP and replace as needed. 05/27 Calcium low (7.6 protein corrected) - Will replace with 2 grams of Calcium Chloride (8) Headache Plan: Resolved. Continue with Tylenol as needed. (9) Nausea Treated with Zofran as needed. (10) HIV (human immunodeficiency virus infection) Discussed with RN - will try to confirm medications to see if patient is being compliant with HIV medications. Patient does no know what medications he has been taking. 05/22 RN called patient's pharmacy - medications have not been filled since 2015. There is noncompliance - patient will need to follow up with the health department. 05/23 I called [facility] specialty pharmacy - last time patient filled his antiretroviral medications was on 06/21/2015. the prescribing physician then was nacho Dubon. Will try to contact him. Patient seems to be noncompliant. will not resume antiretrovirals until compliance is confirmed. Patient states that he has been compliant. GI prophylaxis: I will add PPI. DVT plexus: SCDs, continue heparin subcutaneously. Pt Condition on Discharge: Stable Discharge Disposition: Discharge Home Discharge Time: > 30 minutes Discharge Instructions DIET: Follow Instructions for: Renal Failure Diet Activities you can perform: Regular-No Restrictions Follow up Referrals: Infectious Disease - Next Day with Nacho Olivas MD Patient states taking medications - I called pharmacy and last time filled was on 05/2015. Medications was not restarted while patient was hospitalized due to concern for noncompliance. Nephrology - 2 Weeks with Levi Solis MD PCP Follow-up - 2-3 Days New Medications: Levetiracetam (Keppra) 250 Mg Tab 750 MG PO Q12HR Seizure Control #62 Ref 1 TAB Continued Medications: Abacavir (Ziagen) 300 Mg Tab 300 MG PO BID Hazardous agent; use appropriate precautions for handling & disposal. Mgmt Viral Infection #60 Ref 0 TAB Fosamprenavir (Lexiva) 700 Mg Tab 1 TAB PO BID Lamivudine (Epivir) 150 Mg Tab 150 MG PO DAILY *Fill this 5 day prescription first and begin taking Epivir 12 hours after the first dose received in the Emergency Department as prescribed.* Mgmt Viral Infection #9 Ref 0 TAB Ritonavir (Norvir) 100 Mg Cap 100 MG PO BID Mgmt Viral Infection #180 Ref 0 CAP Discontinued Medications: Levetiracetam (Levetiracetam) 500 Mg Tab 500 MG PO DAILY Control Seizures #60 Ref 0 TAB Rodolfo Lara MD May 28, 2016 13:52
[2016-05-28 15:00] VITALS: BP 101/66; PULSE 84; RESP 20; TEMP 98.1; O2SAT 100
== END 2016-05-28 15:43 | disposition home or self-care (01) | DRG 100 ==
LOC: NEPE 18:05 → NEDA 21:47 → HOCB 05-20 01:40
PROVIDERS: ADMIT Hospitalist; ATTEND Hospitalist
DX: G40.909 Epilepsy, unspecified, not intractable, without status epilepticus (principal); B20 Human immunodeficiency virus [HIV] disease; N17.9 Acute kidney failure, unspecified; M62.82 Rhabdomyolysis; Z94.81 Bone marrow transplant status; E83.51 Hypocalcemia; N18.4 Chronic kidney disease, stage 4 (severe); E78.5 Hyperlipidemia, unspecified; F12.90 Cannabis use, unspecified, uncomplicated; F15.10 Other stimulant abuse, uncomplicated; E87.6 Hypokalemia; E86.0 Dehydration; D63.8 Anemia in other chronic diseases classified elsewhere; R50.9 Fever, unspecified; Z85.72 Personal history of non-Hodgkin lymphomas; Z89.512 Acquired absence of left leg below knee; Z91.14 Patient's other noncompliance with medication regimen; Z89.511 Acquired absence of right leg below knee; Z89.212 Acquired absence of left upper limb below elbow
CPT/HCPCS: 70450; 71020; 76775; 76937; 80048; 80053; 80177; 80320; 81001; 82272; 82550; 82552; 82728; 83540; 83550; 83735; 84100; 84155; 85007; 85025; 85027; 87040; 93005; 95819; 96360; J1644; J2060; J2405; J3475; J3480; J7030; J7040

== ENCOUNTER 2016-12-13 19:32 | Emergency (ER) | payer MEDICARE, OTHER ==
[~2016-12-13] VITALS: Ht 165.1 cm; Wt 55.0 kg
[~2016-12-13 19:32] MED LIST changes: -FISH1000 PO; -FLAG250T PO; +FOSA PO; +LEVE250 PO; -LEVE500T10 PO; -LEXI700T PO; -RALTEGRAVIR PO; -RANI150 PO; +ZIAG300T3 PO; -[UNRECOGNIZED DRUG - CODE] PO
[2016-12-13 19:37] VITALS: BP 138/89; PULSE 109; RESP 16; TEMP 98.9; O2SAT 95
--- NOTE | 2016-12-13 19:47 | PD ---
HPI Chief Complaint: Seizure Time Seen by Provider: 19:45 Travel History International Travel<30 days: No Contact w/Intl Traveler<30days: No Traveled to known affect area: No History of Present Illness HPI Said 26 year-old woman who presents to the emergency department after seizure. His a history of he acquired HIV, history of meningitis and sepsis, as well as seizure disorder. He is on Keppra. He states he gets seizures once or twice a year./Seizure 4 months ago. He's been compliant with all his medicines. He had a 3 minute generalized seizure today. His postictal on EMS arrival. States she otherwise has been feeling generally well and healthy. Complains of some headache now. No other complaints. No other recent illness or injury. History Past Medical History Narrative Medical Non-Hodgkins Lymphoma status post bone marrow transplant and chemotherapy diagnosed at age 8 HIV perinatally acquired Seizures History of meningitis History of septic shock with profound necrosis of extremities Chronic anemia Hyperlipidemia Chronic kidney disease . Past Surgical History Bilateral BKA Left arm amputation below elbow Social History Alcohol Use: Yes (OCC) Tobacco Use: No Allergies-Medications (Allergen,Severity, Reaction): Coded Allergies: amoxicillin (Unverified Allergy, Unknown, 12/13/16) penicillin G (Unverified Allergy, Unknown, 12/13/16) Reported Meds & Prescriptions Reported Meds & Active Scripts Active Keppra (Levetiracetam) 250 Mg Tab 750 Mg PO Q12HR Reported Norvir (Ritonavir) 100 Mg Cap 100 Mg PO BID Epivir (Lamivudine) 150 Mg Tab 150 Mg PO DAILY *Fill this 5 day prescription first and begin taking Epivir 12 hours after the first dose received in the Emergency Department as prescribed.* Lexiva (Fosamprenavir Calcium) 700 Mg Tab 1 Tab PO BID Ziagen (Abacavir Sulfate) 300 Mg Tab 300 Mg PO BID Hazardous agent; use appropriate precautions for handling & disposal. Review of Systems Except as stated in HPI: all other systems reviewed are Neg Physical Exam Narrative GENERAL: Well during 18 year-old woman, no acute distress. SKIN: Focused skin assessment warm/dry. HEAD: Atraumatic. Normocephalic. EYES: Pupils equal and round. No scleral icterus. No injection or drainage. ENT: No nasal bleeding or discharge. Mucous membranes pink and moist. NECK: Trachea midline. No JVD. CARDIOVASCULAR: Regular rate and rhythm. No murmur appreciated. RESPIRATORY: No accessory muscle use. Clear to auscultation. Breath sounds equal bilaterally. GASTROINTESTINAL: Abdomen soft, non-tender, nondistended. Hepatic and splenic margins not palpable. MUSCULOSKELETAL: Bilateral lower extremity amputee, left upper extremity amputation. NEUROLOGICAL: Awake and alert. No obvious cranial nerve deficits. Motor grossly within normal limits. Normal speech. PSYCHIATRIC: Appropriate mood and affect; insight and judgment normal. Data Data Last Documented VS Vital Signs Date Time Temp Pulse Resp B/P (MAP) Pulse Ox O2 Delivery O2 Flow Rate FiO2 12/13/16 19:37 98.9 109 16 138/89 (105) 95 Orders Orders Basic Metabolic Panel (Bmp) (12/13/16 19:54) Iv Access Insert/Monitor (12/13/16 19:54) Lorazepam Inj (Ativan Inj) (12/13/16 20:00) Levetiracetam Inj (Keppra Inj) (12/13/16 20:00) Labs Laboratory Tests Test 12/13/16 20:02 Blood Urea Nitrogen 63 MG/DL Creatinine 6.11 MG/DL Random Glucose 154 MG/DL Calcium Level 8.6 MG/DL Sodium Level 132 MEQ/L Potassium Level 3.5 MEQ/L Chloride Level 99 MEQ/L Carbon Dioxide Level 14.5 MEQ/L Anion Gap 19 MEQ/L Estimat Glomerular Filtration Rate 13 ML/MIN MDM Medical Decision Making Medical Screen Exam Complete: Yes Emergency Medical Condition: Yes Interpretation(s) LABS: CBC remarkable for elevated BUN/creatinine, bicarbonate 14.5, potassium normal Differential Diagnosis Seizures, worsening chronic kidney disease, renal failure, other Narrative Course Medical decision-making new para 26-year-old male, history of HIV, seizure disorder, here with seizure. States he otherwise has been feeling well and healthy. He is compliant with his Keppra. Last seizure was about 4 months ago. He has one to 2 seizures a year as his baseline. He has significant chronic kidney disease told to worsen. His anion gap acidosis may be from lactate from seizure as well. Recommend close outpatient follow-up. Diagnosis Primary Impression: Seizures Additional Impression: Chronic kidney disease Additional Instructions: Continue current medications. Follow-up with your primary doctor on Thursday. Do not drive or operate heavy machinery until cleared by neurology. You should avoid being in any situation where if you had a seizure it could be dangerous such as swimming, looking on a ladder, or other such activities. Return to the emergency department for any seizures lasting more than 5 minutes , [id number] seizures, or seizures with prolonged confusion afterwards. Med/Other Pt SpecificInfo: No Change to Meds Disposition: 01 DISCHARGE HOME Condition: Stable Rebel Frank MD Dec 13, 2016 19:47
[2016-12-13] MEDS ORDERED: LORazepam 2 MG/ML VIAL IV PUSH ONE (20:00)
[2016-12-13] MEDS ORDERED: levETIRAcetam INJ 500 MG in SODIUM CHLORIDE 0.9% INJ 100 ML IV ONE (20:00)
[2016-12-13 20:34] LABS: BICARBONATE 14.5 MEQ/L (21.0-32.0); POTASSIUM 3.5 MEQ/L (3.5-5.1)
== END 2016-12-13 21:43 | disposition home or self-care (01) ==
LOC: NEPE 19:32
DX: G40.909 Epilepsy, unspecified, not intractable, without status epilepticus (principal); B20 Human immunodeficiency virus [HIV] disease; N18.9 Chronic kidney disease, unspecified; D53.9 Nutritional anemia, unspecified; Z85.72 Personal history of non-Hodgkin lymphomas; Z94.81 Bone marrow transplant status
CPT/HCPCS: 80048; 96365; 96375; 99284; J1953; J2060

== ENCOUNTER 2016-12-24 19:50 | Emergency (ER) | payer MEDICARE, OTHER ==
[~2016-12-24] VITALS: Ht 162.6 cm; Wt 56.0 kg
[2016-12-24 19:58] VITALS: BP 129/79; PULSE 112; RESP 20; TEMP 98.7; O2SAT 99
--- NOTE | 2016-12-24 20:12 | PD ---
HPI Chief Complaint: Seizure Time Seen by Provider: 20:05 Travel History International Travel<30 days: No Contact w/Intl Traveler<30days: No Traveled to known affect area: No History of Present Illness HPI Patient comes in by EMS after having a seizure at home. EMS reports that the patient family reports that patient was postictal similar to previous seizures. Patient denies any complaints or concerns. Denies any headache, chest pain, shortness breath, fevers, suicidal or homicidal ideations, or other medical concerns. Patient states he does not want any blood work done he just wants to leave. Patient reports he is compliant with his Keppra and is prescribed by his primary care doctor. Patient states he does not drive. PFSH Past Medical History Autoimmune Disease: Yes Blood Disorders: Yes (bone marrow transplant) Anxiety: No Depression: No Cancer: Yes (HX OF LYMPHOMA) Cardiovascular Problems: No Chemotherapy: Yes Diminished Hearing: No Gastrointestinal Disorders: Yes Genitourinary: No Headaches: Yes Immune Disorder: Yes (HIV) Musculoskeletal: No Neurologic: Yes (seizures) Psychiatric: No Reproductive: No Respiratory: No Radiation Therapy: Yes Seizures: Yes Past Surgical History Abdominal Surgery: Yes (SPLEENECTOMY) AICD: No Arteriovenous Shunt: No Cardiac Surgery: No Ear Surgery: No Endocrine Surgery: No Eye Surgery: No Genitourinary Surgery: No Gynecologic Surgery: No Insulin Pump: No Joint Replacement: No Neurologic Surgery: No Oral Surgery: No Pacemaker: No Thoracic Surgery: No Other Surgery: Yes (BILATERAL LOWER LEG AND LEFT ARM AMPUTATION) Social History Alcohol Use: Yes (OCC) Tobacco Use: No Substance Use: Yes (SMOKES MARIJUANA, FLACCA) Allergies-Medications (Allergen,Severity, Reaction): Coded Allergies: amoxicillin (Unverified Allergy, Unknown, 12/13/16) penicillin G (Unverified Allergy, Unknown, 12/13/16) Reported Meds & Prescriptions Reported Meds & Active Scripts Active Keppra (Levetiracetam) 500 Mg Tab 500 Mg PO BID Keppra (Levetiracetam) 250 Mg Tab 750 Mg PO Q12HR Reported Norvir (Ritonavir) 100 Mg Cap 100 Mg PO BID Epivir (Lamivudine) 150 Mg Tab 150 Mg PO DAILY *Fill this 5 day prescription first and begin taking Epivir 12 hours after the first dose received in the Emergency Department as prescribed.* Lexiva (Fosamprenavir Calcium) 700 Mg Tab 1 Tab PO BID Ziagen (Abacavir Sulfate) 300 Mg Tab 300 Mg PO BID Hazardous agent; use appropriate precautions for handling & disposal. Review of Systems Except as stated in HPI: all other systems reviewed are Neg Physical Exam Narrative GENERAL: Well-developed, well nourished, in no acute distress, and non-ill appearing. SKIN: Focused skin assessment warm and dry. HEAD: Atraumatic. Normocephalic. EYES: Pupils equal and round. EOMI. No scleral icterus. No injection or drainage. ENT: No nasal bleeding or discharge. Mucous membranes pink and moist. NECK: Trachea midline. Supple. No nuclear rigidity. CARDIOVASCULAR: Regular rate and rhythm. No murmur appreciated. RESPIRATORY: No accessory muscle use. No respiratory distress. Clear to auscultation. Breath sounds equal bilaterally. MUSCULOSKELETAL: No obvious deformities. No clubbing. No cyanosis. No edema. 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 No obvious cranial nerve deficits. Motor grossly within normal limits. Normal speech. PSYCHIATRIC: Appropriate mood and affect; insight and judgment normal. Data Data Last Documented VS Vital Signs Date Time Temp Pulse Resp B/P (MAP) Pulse Ox O2 Delivery O2 Flow Rate FiO2 12/24/16 20:01 20 98 12/24/16 19:58 98.7 112 129/79 (96) MDM Medical Decision Making Medical Screen Exam Complete: Yes Emergency Medical Condition: Yes Differential Diagnosis Seizure, medical noncompliance, electrolyte abnormality, recurrent seizure, other Narrative Course Patient is not postictal is wanting to sign out AGAINST MEDICAL ADVICE. The risks of leaving against medical advice without further evaluation treatment were discussed with the patient. These risks include cardiac dysfunction, cardiac dysrhythmia, possible heart attack, possible stroke or . The patient indicated understanding of these risks and appeared to have the capacity to make this decision. Patient is requesting a refill of his Keppra as he states he is almost out of it does not have appointment scheduled with his primary care doctor currently. Patient reports take 500 mg twice a day. Patient in no obvious distress upon re-evaluation. Discussed patient with Dr. Love, who is okay with patient signing out AGAINST MEDICAL ADVICE. Patient was asked if they wanted to speak to my attending, which the patient did not wish to do at this time. Reinforced sheer importance of close follow up with patient's primary physician or primary care clinic. Instructed patient to return to ED immediately, if symptoms return/worsen. Patient showed understanding of above instructions. Patient ambulated without difficulty out of ED at discharge AGAINST MEDICAL ADVICE using his prosthesis. Diagnosis Primary Impression: Left against medical advice Additional Impression: Seizure Patient Instructions: Against Medical Advice (ED), General Instructions, Medicine Refill (ED), Recurrent Seizures in Adults (ED) Additional Instructions: Follow-up with your primary care physician and/or neurologist in 3-5 days for reevaluation. Take all medication as prescribed. Return to the emergency department if symptoms get worse. Med/Other Pt SpecificInfo: Prescription(s) given Scripts Levetiracetam (Keppra) 500 Mg Tab 500 MG PO BID for Control Seizures, #14 TAB 0 Refills Prov: Carlos A Love MD 12/24/16 Disposition: 07 AGAINST MEDICAL ADVICE Condition: Stable Chris Perkins Dec 24, 2016 20:12
[2016-12-24] MEDS ORDERED: LEVE500 PO (20:14)
== END 2016-12-24 20:50 | disposition left against medical advice (07) ==
LOC: NEPE 19:50
DX: R56.9 Unspecified convulsions (principal); B20 Human immunodeficiency virus [HIV] disease; Z85.72 Personal history of non-Hodgkin lymphomas; Z94.81 Bone marrow transplant status
CPT/HCPCS: 99283

== ENCOUNTER 2017-01-16 21:00 | Inpatient (IN) | payer MEDICARE, OTHER ==
[~2017-01-16] VITALS: Ht 167.6 cm; Wt 45.8 kg
[~2017-01-16 21:00] MED LIST changes: +LEVE500 PO
[2017-01-16 21:02] VITALS: BP 147/94; PULSE 120; RESP 15; TEMP 98.6; O2SAT 98
[2017-01-16] MEDS ORDERED: SODIUM CHLOR 0.9% 1000 ML INJ 1,000 ML IV ONE ×2 (21:20→23:30)
--- NOTE | 2017-01-16 21:29 | PD ---
HPI Chief Complaint: Medication Refill Request Time Seen by Provider: 21:15 Travel History International Travel<30 days: No Contact w/Intl Traveler<30days: No Traveled to known affect area: No History of Present Illness HPI 26-year-old male with history of HIV, unknown last CD4 count and viral load, on antiretroviral therapy, CKD, seizure disorder, here for evaluation of headache, abdominal pain, generalized malaise. Symptoms started this morning. The patient reports headache that is 5 out of 10, diffuse, pressure-like. He also reports mid abdominal pain that is also 5 out of 10 and is pressure-like. He denies fevers or chills. No nausea or vomiting. 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 PFSH Past Medical History Autoimmune Disease: Yes Blood Disorders: Yes (bone marrow transplant) Anxiety: No Depression: No Cancer: Yes (HX OF LYMPHOMA) Cardiovascular Problems: No Chemotherapy: Yes Diminished Hearing: No Gastrointestinal Disorders: Yes Genitourinary: No Headaches: Yes Immune Disorder: Yes (HIV) Musculoskeletal: No Neurologic: Yes (seizures) Psychiatric: No Reproductive: No Respiratory: No Radiation Therapy: Yes Seizures: Yes Past Surgical History Abdominal Surgery: Yes (SPLEENECTOMY) AICD: No Arteriovenous Shunt: No Cardiac Surgery: No Ear Surgery: No Endocrine Surgery: No Eye Surgery: No Genitourinary Surgery: No Gynecologic Surgery: No Insulin Pump: No Joint Replacement: No Neurologic Surgery: No Oral Surgery: No Pacemaker: No Thoracic Surgery: No Other Surgery: Yes (BILATERAL LOWER LEG AND LEFT ARM AMPUTATION) Social History Alcohol Use: Yes (OCC) Tobacco Use: No Substance Use: Yes (SMOKES MARIJUANA, FLACCA) Allergies-Medications (Allergen,Severity, Reaction): Coded Allergies: amoxicillin (Unverified Allergy, Unknown, 01/16/17) penicillin G (Unverified Allergy, Unknown, 01/16/17) Reported Meds & Prescriptions Reported Meds & Active Scripts Active Keppra (Levetiracetam) 250 Mg Tab 750 Mg PO Q12HR Reported Norvir (Ritonavir) 100 Mg Cap 100 Mg PO BID Epivir (Lamivudine) 150 Mg Tab 150 Mg PO DAILY *Fill this 5 day prescription first and begin taking Epivir 12 hours after the first dose received in the Emergency Department as prescribed.* Lexiva (Fosamprenavir Calcium) 700 Mg Tab 1 Tab PO BID Ziagen (Abacavir Sulfate) 300 Mg Tab 300 Mg PO BID Hazardous agent; use appropriate precautions for handling & disposal. Review of Systems Except as stated in HPI: all other systems reviewed are Neg Physical Exam Narrative GENERAL: Well-developed, well-nourished, sitting comfortably on stretcher, no apparent distress. SKIN: Focused skin assessment warm/dry. HEAD: Atraumatic. Normocephalic. EYES: Pupils equal and round. No scleral icterus. No injection or drainage. ENT: Mucous membranes pink and moist. NECK: Trachea midline. No JVD. No nuchal rigidity. CARDIOVASCULAR: Regular rate and rhythm. No murmur appreciated. RESPIRATORY: No accessory muscle use. Clear to auscultation. Breath sounds equal bilaterally. GASTROINTESTINAL: Abdomen soft, non-tender, nondistended. MUSCULOSKELETAL: Bilateral BKA, left forearm amputation. NEUROLOGICAL: Awake and alert. No obvious cranial nerve deficits. Motor grossly within normal limits. Normal speech. PSYCHIATRIC: Flat affect. Poor eye contact. Data Data Last Documented VS Vital Signs Date Time Temp Pulse Resp B/P (MAP) Pulse Ox O2 Delivery O2 Flow Rate FiO2 01/16/17 21:02 98.6 120 15 147/94 (111) 98 Room Air Orders Orders Complete Blood Count With Diff (01/16/17 21:20) Comprehensive Metabolic Panel (01/16/17 21:20) Beta Hydroxybutyrate (Acetone) (01/16/17 21:20) Urinalysis - C+S If Indicated (01/16/17 21:20) Chest, Single Ap (01/16/17 21:20) Blood Gas Venous (Vbg) (01/16/17 21:20) Ecg Monitoring (01/16/17 21:20) Iv Access Insert/Monitor (01/16/17 21:20) Oximetry (01/16/17 21:20) NPO (01/16/17 21:20) Sodium Chlor 0.9% 1000 Ml Inj (Ns 1000 M (01/16/17 21:20) Sodium Chloride 0.9% Flush (Ns Flush) (01/16/17 21:30) Lipase (01/16/17 21:20) Ct Brain W/O Iv Contrast(Rout) (01/16/17 ) Ct Abd/Pel W/O Iv Contrast (01/16/17 ) Metoclopramide Inj (Reglan Inj) (01/16/17 21:30) Morphine Inj (Morphine Inj) (01/16/17 21:30) Creatine Kinase (Cpk) (01/16/17 21:29) Admit Order (Ed Use Only) (01/16/17 22:31) Labs Laboratory Tests Test 01/16/17 21:28 01/16/17 21:30 Blood Gas Puncture Site IV Blood Gas Patient Temperature 98.6 Venous Blood pH 7.29 Venous Blood Partial Pressure CO2 34 mmHg Venous Blood Partial Pressure O2 43 mmHg Venous Blood HCO3 16 mmol/L Venous Blood Oxygen Saturation 72 % Venous Blood Oxygen Content 10.5 Vol % Venous Blood Base Excess -9.6 mmol/L Oxygen Delivery Device ROOM AIR Blood Gas Inspired Oxygen 21 % White Blood Count 9.8 TH/MM3 Red Blood Count 4.57 MIL/MM3 Hemoglobin 11.4 GM/DL Hematocrit 35.3 % Mean Corpuscular Volume 77.4 FL Mean Corpuscular Hemoglobin 25.0 PG Mean Corpuscular Hemoglobin Concent 32.3 % Red Cell Distribution Width 14.7 % Platelet Count 318 TH/MM3 Mean Platelet Volume 9.5 FL Neutrophils (%) (Auto) 52.6 % Lymphocytes (%) (Auto) 31.3 % Monocytes (%) (Auto) 13.4 % Eosinophils (%) (Auto) 2.2 % Basophils (%) (Auto) 0.5 % Neutrophils # (Auto) 5.2 TH/MM3 Lymphocytes # (Auto) 3.1 TH/MM3 Monocytes # (Auto) 1.3 TH/MM3 Eosinophils # (Auto) 0.2 TH/MM3 Basophils # (Auto) 0.0 TH/MM3 CBC Comment DIFF FINAL Differential Comment Blood Urea Nitrogen 82 MG/DL Creatinine 7.22 MG/DL Random Glucose 105 MG/DL Total Protein 9.8 GM/DL Albumin 3.8 GM/DL Calcium Level 8.5 MG/DL Alkaline Phosphatase 91 U/L Aspartate Amino Transf (AST/SGOT) 23 U/L Alanine Aminotransferase (ALT/SGPT) 28 U/L Total Bilirubin 0.4 MG/DL Sodium Level 132 MEQ/L Potassium Level 3.4 MEQ/L Chloride Level 95 MEQ/L Carbon Dioxide Level 16.4 MEQ/L Anion Gap 21 MEQ/L Estimat Glomerular Filtration Rate 11 ML/MIN Lipase 325 U/L B-Hydroxybutyrate 3.59 MMOL/L [facility] Medical Decision Making Medical Screen Exam Complete: Yes Emergency Medical Condition: Yes Medical Record Reviewed: Yes Differential Diagnosis Metabolic abnormality, headache, cluster headache, migraine headache, tension headache, SAH/meningitis/encephalitis unlikely, acute surgical abdomen unlikely Narrative Course Initial vital signs show heart rate 120, blood pressure 147/94, pulse ox 98% on room air, oral temp of 98.6F. CBC: WBC 9.8, hemoglobin 11.4, hematocrit 35.3, platelets 318. CMP is remarkable for bicarbonate 16.4, anion gap 21, BUN 82, creatinine 7.22. Beta hydroxybutyrate is 3.59. Venous pH is 7.29. Chest x-ray: No acute disease. No significant change has occurred. CT head: Normal exam. No significant change has occurred. CT abdomen pelvis: Cholelithiasis without cholecystitis. Surgical absence of the spleen. Otherwise negative abdomen. Patient was given a liter of normal saline IV with without improvement in his heart rate. He was written for another normal saline bolus. He reports his headache has improved with morphine. He has a slight ketoacidosis which could be from starvation ketoacidosis. He also has an anion gap metabolic acidosis with acute on chronic renal insufficiency. He will be admitted for further treatment and evaluation follow the above. Case discussed with hospitalist Dr. Carrington. Patient will be admitted to her service for observation. Diagnosis Primary Impression: High anion gap metabolic acidosis Additional Impressions: Acute on chronic renal failure Qualified Codes: N17.9 - Acute kidney failure, unspecified; N18.9 - Chronic kidney disease, unspecified Ketoacidosis Sinus tachycardia Admitting Information Admitting Physician Requests: Observation Jayce Chew MD Jan 16, 2017 21:29
[2017-01-16] MEDS ORDERED: MORPHINE SULFATE 4 MG/ML INJ IV PUSH ONE (21:30)
[2017-01-16] MEDS ORDERED: METOCLOPRAMIDE HCL 10 MG/2 ML VIAL IV PUSH ONE (21:30)
[2017-01-16] MEDS ORDERED: SODIUM CHLORIDE 0.9% FLUSH 10 ML FLUSH IVF PRN (21:30)
[2017-01-16 21:49] LABS: AUTOMATED NEUTROPHIL # 5.2 TH/MM3 (1.8-7.7); BASOPHIL % 0.5 % (0.0-2.0); EOSINOPHIL # 0.2 TH/MM3 (0-0.4); EOSINOPHIL % 2.2 % (0.0-4.0); HEMATOCRIT 35.3 % (39.0-51.0); HEMOGLOBIN 11.4 GM/DL (13.0-17.0); LYMPH % 31.3 % (9.0-44.0); LYMPHOCYTE # 3.1 TH/MM3 (1.0-4.8); MEAN CELL VOLUME 77.4 FL (80.0-100.0); MEAN CORPUSCULAR HGB CONC 32.3 % (32.0-36.0); MEAN PLATELET VOLUME 9.5 FL (7.0-11.0); MONO % 13.4 % (0.0-8.0); MONOCYTE # 1.3 TH/MM3 (0-0.9); NEUT % 52.6 % (16.0-70.0); PLATELET COUNT 318 TH/MM3 (150-450); RED BLOOD COUNT 4.57 MIL/MM3 (4.50-5.90); RED CELL DISTRIBUTION WIDTH 14.7 % (11.6-17.2); WHITE BLOOD COUNT 9.8 TH/MM3 (4.0-11.0)
--- NOTE | 2017-01-16 21:49 | RADRPT ---
EXAM DATE/TIME: 01/16/2017 21:27 [facility] COMPARISON: CT BRAIN W/O CONTRAST, November 14, 2015, 21:58. INDICATIONS : Seizures, cephalgia. RADIATION DOSE: 56.35 CTDIvol (mGy) MEDICAL HISTORY : Seizures. Lymphoma. HIV. SURGICAL HISTORY : None. ENCOUNTER: Initial ACUITY: 1 day PAIN SCALE: 5/10 LOCATION: cranial TECHNIQUE: Multiple contiguous axial images were obtained of the head. Using automated exposure control and adj ustment of the mA and/or kV according to patient size, radiation dose was kept as low as reasonably a chievable to obtain optimal diagnostic quality images. DICOM format image data is available electro nically for review and comparison. FINDINGS: CEREBRUM: The ventricles are normal for age. No evidence of midline shift, mass lesion, hemorrhage or acute in farction. No extra-axial fluid collections are seen. POSTERIOR FOSSA: The cerebellum and brainstem are intact. The 4th ventricle is midline. The cerebellopontine angle i s unremarkable. EXTRACRANIAL: The visualized portion of the orbits is intact. SKULL: The calvaria is intact. No evidence of skull fracture. CONCLUSION: Normal examination. No significant change has occurred. Gilmar Benton MD on January 16, 2017 at 21:47 Board Certified Radiologist. This report was verified electronically.
--- NOTE | 2017-01-16 21:53 | RADRPT ---
EXAM DATE/TIME: 01/16/2017 21:31 [facility] COMPARISON: No previous studies available for comparison. INDICATIONS : Diffuse abdominal pain ORAL CONTRAST: No oral contrast ingested. RADIATION DOSE: 6.64 CTDIvol (mGy) MEDICAL HISTORY : Lymphoma. HIV. SURGICAL HISTORY : Splenectomy. ENCOUNTER: Initial ACUITY: 1 day PAIN SCALE: 5/10 LOCATION: abdomen TECHNIQUE: Volumetric scanning of the abdomen and pelvis was performed. Using automated exposure control and ad justment of the mA and/or kV according to patient size, radiation dose was kept as low as reasonably achievable to obtain optimal diagnostic quality images. DICOM format image data is available electro nically for review and comparison. FINDINGS: LOWER LUNGS: The visualized lower lungs are clear. LIVER: Homogeneous density without lesion. There is no dilation of the biliary tree gallbladder seen as a l uminal structure with stones dependent posteriorly and near the neck of the gallbladder with no wall thickening and no pericholecystic fluid. SPLEEN: Apparently absent surgically. PANCREAS: Within normal limits. KIDNEYS: Normal in size and shape. There is no mass, stone, or hydronephrosis. ADRENAL GLANDS: Within normal limits. VASCULAR: There is no aortic aneurysm. BOWEL/MESENTERY: The stomach, small bowel, and colon demonstrate no acute abnormality. There is no free intraperitone al air or fluid. Appendix visualized and is normal. ABDOMINAL WALL: Within normal limits. RETROPERITONEUM: There is no lymphadenopathy. BLADDER: No wall thickening or mass. REPRODUCTIVE: Within normal limits. INGUINAL: There is no lymphadenopathy or hernia. MUSCULOSKELETAL: Within normal limits for patient age. CONCLUSION: Cholelithiasis without cholecystitis. Surgical absence the spleen. Otherwise negative abdomen Gilmar Benton MD on January 16, 2017 at 21:48 Board Certified Radiologist. This report was verified electronically.
[2017-01-16 22:05] LABS: ALBUMIN 3.8 GM/DL (3.4-5.0); AST (GOT) 23 U/L (15-37); BICARBONATE 16.4 MEQ/L (21.0-32.0); BLOOD UREA NITROGEN 82 MG/DL (7-18); CALCIUM 8.5 MG/DL (8.5-10.1); CHLORIDE 95 MEQ/L (98-107); CREATININE 7.22 MG/DL (0.60-1.30); GLOMERULAR FILTRATION RATE 11 ML/MIN (>89); GLUCOSE,RANDOM 105 MG/DL (74-106); LIPASE 325 U/L (73-393); SODIUM (NA) 132 MEQ/L (136-145)
--- NOTE | 2017-01-16 22:06 | RADRPT ---
EXAM DATE/TIME: 01/16/2017 21:37 [facility] COMPARISON: CHEST PA & LAT, May 26, 2016, 10:32. INDICATIONS : Short of breath. MEDICAL HISTORY : None. SURGICAL HISTORY : None. ENCOUNTER: Initial ACUITY: 1 day PAIN SCORE: 6/10 LOCATION: Bilateral chest FINDINGS: A single view of the chest demonstrates the lungs to be symmetrically aerated without evidence of mas s, infiltrate or effusion. The cardiomediastinal contours are unremarkable. Osseous structures are intact. CONCLUSION: No acute disease. No significant change has occurred. Gilmar Benton MD on January 16, 2017 at 22:04 Board Certified Radiologist. This report was verified electronically.
[2017-01-16 22:09] LABS: ALKALINE PHOSPHATASE 91 U/L (45-117); ALT (GPT) 28 U/L (12-78); TOTAL BILIRUBIN ADULT 0.4 MG/DL (0.2-1.0); TOTAL PROTEIN 9.8 GM/DL (6.4-8.2)
--- NOTE | 2017-01-16 22:33 | HHI.HP ---
HPI Service [facility] Primary Care Physician Sue Olivas MD Admission Diagnosis anion gap metabolic acidosis, ketoacidosis, renal insufficiency Diagnoses: (1) Seizure disorder Diagnosis: Principal (2) KVNG (acute kidney injury) Diagnosis: Principal (3) Dehydration Diagnosis: Principal (4) Metabolic acidosis Diagnosis: Principal (5) HIV (human immunodeficiency virus infection) Diagnosis: Principal (6) Hypokalemia Diagnosis: Principal (7) Non-compliance Diagnosis: Principal Travel History International Travel<30 Days: No Contact w/Intl Traveler <30 Da: No Traveled to Known Affected Are: No History of Present Illness This is a 26-year-old male with a PMH of HIV (Last CD4 451 on 08/09/14), Seizure Disorder, CKD, Lymphoma and Non-Compliance who presented to the ER w/ c/o generalized malaise in addition to "minor seizures" because ran out of his medications. Seen in ER on 12/24/16 for similar complaints, however LEFT AMA. Returns now w/ recurrent symptoms. Denies fever, chills or sick contacts. Does not know CD4 count, reports compliance w/ HAART. On arrival, BP 147/94, HR 120, O2 sat 98% on RA, Afebrile. CBC at baseline. Chemistry with anion gap acidosis, AG 21. Creatinine 7.22, WBC 6.11 on 12/13/16. Lipase 325. CT Head w / no acute findings. CT Abd/Pelvis w/ cholelithiasis, no cholecystitis. CXR w / no acute findings. S/p 1L IVF in ER. Review of Systems Except as stated in HPI: all other systems reviewed are Neg ROS: 14 point review of systems otherwise negative. Past Family Social History Past Medical History PMH: HIV (Last CD4 451 on 08/09/14), Seizure Disorder, CKD, Lymphoma and Non- Compliance Past Surgical History PAST SURGICAL HISTORY: Splenectomy, Bilateral BKA. LUE Amputation Allergies: Coded Allergies: amoxicillin (Unverified Allergy, Unknown, 01/16/17) penicillin G (Unverified Allergy, Unknown, 01/16/17) Family History PAST FAMILY HISTORY: Reviewed. No h/o DM or CAD Social History PAST SOCIAL HISTORY: Occasional alcohol. Negative for tobacco. +Marijuana, + Flacca Physical Exam Vital Signs Vital Signs Date Time Temp Pulse Resp B/P (MAP) Pulse Ox O2 Delivery O2 Flow Rate FiO2 01/16/17 21:02 98.6 120 15 147/94 (111) 98 Room Air Physical Exam PE: GENERAL: Young male in no acute distress. HEENT: PERRLA, EOMI. No scleral icterus or conjunctival pallor. No lid lag or facial droop. CARDIOVASCULAR: Regular rate and rhythm. No obvious murmurs to auscultation. No chest tenderness to palpation. RESPIRATORY: No obvious rhonchi or wheezing. Clear to auscultation. Breath sounds equal bilaterally. GASTROINTESTINAL: Abdomen soft, non-tender, nondistended. BS normal. MUSCULOSKELETAL: Extremities without clubbing, cyanosis, or edema. No obvious deformities. Bilateral BKA, LUE Amputation. NEUROLOGICAL: Awake, alert and oriented x4. No focal neurologic deficits. Moving both upper and lower extremities spontaneously. Laboratory Laboratory Tests Test 01/16/17 21:28 01/16/17 21:30 Blood Gas Puncture Site IV Blood Gas Patient Temperature 98.6 Venous Blood pH 7.29 Venous Blood Partial Pressure CO2 34 Venous Blood Partial Pressure O2 43 Venous Blood HCO3 16 Venous Blood Oxygen Saturation 72 Venous Blood Oxygen Content 10.5 Venous Blood Base Excess -9.6 Oxygen Delivery Device ROOM AIR Blood Gas Inspired Oxygen 21 White Blood Count 9.8 Red Blood Count 4.57 Hemoglobin 11.4 Hematocrit 35.3 Mean Corpuscular Volume 77.4 Mean Corpuscular Hemoglobin 25.0 Mean Corpuscular Hemoglobin Concent 32.3 Red Cell Distribution Width 14.7 Platelet Count 318 Mean Platelet Volume 9.5 Neutrophils (%) (Auto) 52.6 Lymphocytes (%) (Auto) 31.3 Monocytes (%) (Auto) 13.4 Eosinophils (%) (Auto) 2.2 Basophils (%) (Auto) 0.5 Neutrophils # (Auto) 5.2 Lymphocytes # (Auto) 3.1 Monocytes # (Auto) 1.3 Eosinophils # (Auto) 0.2 Basophils # (Auto) 0.0 CBC Comment DIFF FINAL Differential Comment Blood Urea Nitrogen 82 Creatinine 7.22 Random Glucose 105 Total Protein 9.8 Albumin 3.8 Calcium Level 8.5 Alkaline Phosphatase 91 Aspartate Amino Transf (AST/SGOT) 23 Alanine Aminotransferase (ALT/SGPT) 28 Total Bilirubin 0.4 Sodium Level 132 Potassium Level 3.4 Chloride Level 95 Carbon Dioxide Level 16.4 Anion Gap 21 Estimat Glomerular Filtration Rate 11 Lipase 325 B-Hydroxybutyrate 3.59 Result Diagram: 01/16/17212901/16/172129 Kamilla VTE Risk Assessment Kamilla VTE Risk Assessment: No/Low Risk (score <= 1) VTE [facility] Contraindication: Bilateral amputee Thui Risk Assessment Model Point Value = 1 Point Value = 2 Point Value = 3 Point Value = 5 Age 41-60 Minor surgery BMI > 25 kg/m2 Swollen legs Varicose veins or History of unexplained or recurrent spontaneous Oral contraceptives or hormone replacement Sepsis (< 1 month) Serious lung disease, including pneumonia (< 1 month) Abnormal pulmonary function Acute myocardial infarction Congestive heart failure (< 1 month) History of inflammatory bowel disease Medical patient at bed rest Age 61-74 Arthroscopic surgery Major open surgery (> 45 min) Laparoscopic surgery (> 45 min) Malignancy Confined to bed (> 72 hours) Immobilizing plaster cast Central venous access Age >= 75 History of VTE Family history of VTE Factor V Leiden Prothrombin [id number] Lupus anticoagulant Anticardiolipin antibodies Elevated serum homocysteine Heparin-induced thrombocytopenia Other congenital or acquired thrombophilia Stroke (< 1 month) Elective arthroplasty Hip, pelvis, or leg fracture Acute spinal cord injury (< 1 month) Prophylaxis Regimen Total Risk Factor Score Risk Level Prophylaxis Regimen 0-1 Low Early ambulation 2 Moderate Order ONE of the following: *Sequential Compression Device (SCD) *Heparin 5000 units SQ BID 3-4 Higher Order ONE of the following medications: *Heparin 5000 units SQ TID *Enoxaparin/Lovenox 40 mg SQ daily (WT < 150 kg, CrCl > 30 mL/min) *Enoxaparin/Lovenox 30 mg SQ daily (WT < 150 kg, CrCl > 10-29 mL/min) *Enoxaparin/Lovenox 30 mg SQ BID (WT < 150 kg, CrCl > 30 mL/min) AND/OR *Sequential Compression Device (SCD) 5 or more Highest Order ONE of the following medications: *Heparin 5000 units SQ TID (Preferred with Epidurals) *Enoxaparin/Lovenox 40 mg SQ daily (WT < 150 kg, CrCl > 30 mL/min) *Enoxaparin/Lovenox 30 mg SQ daily (WT < 150 kg, CrCl > 10-29 mL/min) *Enoxaparin/Lovenox 30 mg SQ BID (WT < 150 kg, CrCl > 30 mL/min) AND *Sequential Compression Device (SCD) Assessment and Plan Problem List: (1) Seizure disorder Status: Chronic (2) KVNG (acute kidney injury) ICD Code: N17.9 - Acute kidney failure, unspecified (3) Metabolic acidosis ICD Code: E87.2 - Acidosis (4) Hypokalemia ICD Code: E87.6 - Hypokalemia Status: Resolved (5) Dehydration ICD Code: E86.0 - Dehydration (6) Non-compliance ICD Code: Z91.19 - Patient's noncompliance with other medical treatment and regimen (7) HIV (human immunodeficiency virus infection) ICD Code: Z21 - Asymptomatic human immunodeficiency virus [HIV] infection status Status: Chronic Assessment and Plan A/P: 1. Seizure Disorder: Chronic. Reports "mini seizures" as off medications, seen in ER on 12/24/16 for similar complaints, however LEFT AMA. No seizure activity while in ER. Seizure Precautions, resume home Keppra. Ativan prn if needed. CT Head w/ no acute findings, images reviewed by me. 2. Metabolic Acidosis: AG 21. Likely secondary to starvation ketosis. No signs of infection/sepsis. CXR w/ no acute findings, images reviewed by me. IVF for hydration, repeat labs in am. 3. KVNG: Acute on Chronic. Creatinine 7.22, previously 6.11 on 12/13/16. Not on HD, seen by Nephrology on last admit w/ plans for outpatient follow-up however has not done so. Stressed importance of compliance and follow-up. 4. Hypokalemia: K+ 3.4. Will repeat and replace as needed. 5. Dehydration: BUN 21, Creatinine 7.22, increased from last visit, IVF for hydration. Check U/a and Urine Drug Screen, h/o drug use. 6. HIV: Last CD4 451 on 08/09/14. Reports compliance w/ HAART, however unsure of recent CD4. Resume home medications. 7. Non-Compliance: w/ meds and follow-up as above, does have PCP. Stressed importance of follow up w/ physicians and Room Service Server as outpatient. 8. DVT Prophylaxis: Mechanical contraindication in light of bilateral BKA 9. Social work for d/c planning as needed. 10. Case discussed w/ ER physician at length. Summer Carrington MD Jan 16, 2017 22:33
[2017-01-16] MEDS ORDERED: SENNOSIDES 8.6 MG TAB PO PRN (22:45)
[2017-01-16] MEDS ORDERED: LACTULOSE SYRUP 20 GM/30 ML CUP PO PRN (22:45)
[2017-01-16] MEDS ORDERED: SODIUM CHLORIDE 0.9% FLUSH 10 ML FLUSH IV FLUSH PRN (22:45)
[2017-01-16] MEDS ORDERED: MAGNESIUM HYDROXIDE SUSP 30 ML CUP PO PRN (22:45)
[2017-01-16] MEDS ORDERED: ONDANSETRON HCL 4 MG/2 ML VIAL IVP PRN (22:45)
[2017-01-16] MEDS ORDERED: BISACODYL 10 MG SUPP RECTAL PRN (22:45)
[2017-01-16] MEDS: SODIUM CHLOR 0.9% 1000 ML INJ 1,000 ML IV SCH (23:32)
[2017-01-16] MEDS: levETIRAcetam 250 MG TAB PO SCH (23:32)
[2017-01-17] VITALS (10 sets, daily range): BP systolic 112–141; BP diastolic 64–97; PULSE 67–115; RESP 14–22; TEMP 97.5–99.5; O2SAT 95–99
--- NOTE | 2017-01-17 08:18 | HHI.PR ---
Subjective Remarks The patient states that he came because of abdominal pain. Locates the abdominal pain to the epigastrium. Has been present for 1 day. He's been tolerating oral intake with no vomiting or problems swallowing. He reports normal stools. He reports normal urine output. The patient is a poor historian. He states that he's been evaluated by gastroenterology here and has had endoscopies, but no reports are present in the EMR. He states that he takes something for reflux, although he does not know what it is. He said that he does follow a kidney doctor, who he believes his name is Dr. Lundy. He has no other acute complaints today. Objective Vitals Vital Signs Date Time Temp Pulse Resp B/P (MAP) Pulse Ox O2 Delivery O2 Flow Rate FiO2 01/17/17 05:01 98.7 98 18 122/72 (89) 97 01/17/17 02:14 98.1 67 18 118/74 (89) 98 01/17/17 01:05 01/17/17 00:17 14 98 Room Air 01/17/17 00:15 109 15 112/64 (80) 98 Room Air 01/16/17 21:02 98.6 120 15 147/94 (111) 98 Room Air I/O 01/16/17 01/16/17 01/16/17 01/17/17 01/17/17 01/17/17 07:00 15:00 23:00 07:00 15:00 23:00 Intake Total 1000 ml 946 ml Output Total 1300 ml Balance 1000 ml -354 ml Intake Oral 946 ml IV Total 1000 ml Output Urine Total 1300 ml Result Diagram: 01/16/17212901/16/172129 Imaging Last Impressions Chest X-Ray 01/16/172119 Signed Impressions: Service Date/Time: Monday, January 16, 2017 21:37 - CONCLUSION: No acute disease. No significant change has occurred. Gilmar Benton MD Head CT 01/16/17 0000 Signed Impressions: Service Date/Time: Monday, January 16, 2017 21:27 - CONCLUSION: Normal examination. No significant change has occurred. Gilmar Benton MD Abdomen/Pelvis CT 01/16/17 0000 Signed Impressions: Service Date/Time: Monday, January 16, 2017 21:31 - CONCLUSION: Cholelithiasis without cholecystitis. Surgical absence the spleen. Otherwise negative abdomen Gilmar Benton MD Objective Remarks GENERAL: Well-developed well-nourished. In no acute distress. SKIN: Warm and dry. No lesions noted. HEENT: Normocephalic. Pupils equal and round. Mucous membranes pink and moist. No signs of oral candidiasis. CARDIOVASCULAR: Regular rate and rhythm. No murmur appreciated. RESPIRATORY: No accessory muscle use. Clear to auscultation. Breath sounds equal bilaterally. GASTROINTESTINAL: Abdomen soft, non-tender, nondistended. Bowel sounds x4. MUSCULOSKELETAL: Bilateral lower extremity BKA and LUE amputation. No edema. NEUROLOGICAL: Awake and alert. Moves upper and lower extremities spontaneously. Normal speech. PSYCHIATRIC: Appropriate mood and flat affect; insight and judgment fair. A/P Problem List: (1) Seizure disorder Status: Chronic (2) KVNG (acute kidney injury) ICD Code: N17.9 - Acute kidney failure, unspecified Status: Acute (3) Metabolic acidosis ICD Code: E87.2 - Acidosis Status: Chronic (4) Non-compliance ICD Code: Z91.19 - Patient's noncompliance with other medical treatment and regimen Status: Chronic (5) HIV (human immunodeficiency virus infection) ICD Code: Z21 - Asymptomatic human immunodeficiency virus [HIV] infection status Status: Chronic Assessment and Plan 26-year-old male with a PMH of HIV (Last CD4 451 on 08/09/14), Seizure Disorder, CKD, Lymphoma and Non-Compliance who presented with multiple complaints including headache, abdominal pain, and generalized weakness Abdominal pain: Mild. Epigastric. Lipase and LFTs within normal limits. CT abdomen shows cholelithiasis without cholecystitis, s/p splenectomy, otherwise no acute process. Start H2 markell and Magic mouthwash. Consult GI for assistance. Seizure Disorder: Chronic. Reported "mini seizures" as off medications, seen in ER on 12/24/16 for similar complaints, however LEFT AMA. No seizure activity during admission. Seizure Precautions, resumed home Keppra. Ativan prn if needed. CT Head w/ no acute findings. Increased anion gap metabolic acidosis: Somewhat chronic upon review previous labs, but is acutely worse currently. CPK 437. Check UDS. Repeat labs electrolytes today are pending. KVNG: Acute on chronic renal failure stage IV/V. Creatinine 7.22, previously 6.11 on 12/13/16. Consult nephrology. IVF. Follow-up labs pending. HIV: Last CD4 451 on 08/09/14. Reports compliance w/ HAART, however unsure of recent CD4. Continue home HAART medications. Non-Compliance: Chronic noncompliance with medication meds and outpatient follow -up. DVT Prophylaxis: Heparin Nico Wiley Jan 17, 2017 08:18
[2017-01-17] MEDS ORDERED: FAMOTIDINE 20 MG TAB PO ONE (08:30)
[2017-01-17] MEDS: RITONAVIR 100 MG TAB PO SCH ×2 (08:59→22:44)
[2017-01-17] MEDS: ABACAVIR SULFATE 300 MG TAB PO SCH ×2 (08:59→22:44)
[2017-01-17] MEDS: SODIUM CHLORIDE 0.9% FLUSH 10 ML FLUSH IV FLUSH SCH ×2 (09:00→21:52)
[2017-01-17] MEDS: FOSAMPRENAVIR CALCIUM PO SCH ×2 (09:00→22:44)
[2017-01-17] MEDS: DOCUSATE SODIUM 50 MG/SENNA 8.6 MG TAB PO SCH ×2 (09:00→21:45)
[2017-01-17] MEDS: levETIRAcetam 250 MG TAB PO SCH ×2 (09:00→22:43)
--- NOTE | 2017-01-17 10:33 | MB ---
cc: DIONTE ABERNATHY MD DATE OF CONSULTATION: 01/17/2017 REASON FOR CONSULTATION: Elevated BUN and creatinine for evacuation. This is a 26-year-old male known to me from his last visit when he was admitted 8 months ago. He has past medical history, history of HIV, Lymphoma, Peripheral vascular disease, Seizure disorder Chronic kidney disease, Advanced renal failure. He came to the hospital with abdominal pain and generalized weakness. I was called to see the patient because of very high BUN and creatinine. The patient has BUN of 82 and creatinine of 7.2. He previously had creatinine in the range of 3.924 when he was discharged about 8 months ago. His GFR was 21 and now he came to see GFR of 11, his glomerular filtration rate was 13 last month when he came to the emergency department with almost same complaint and he signed out against medical advice. He denies any nausea or vomiting. Denies any decreased appetite. No shortness of breath. No chest pain. No palpitation. No history of diarrhea. The patient has history of seizure and HIV and is following with infectious disease. The patient has peripheral vascular disease and he has bilateral below-knee amputations and left arm below-elbow amputation. This all happened when he was very sick and he possibly had gangrene. He denies any dysuria, hematuria. He is in passing reasonable amounts of urine. PAST MEDICAL HISTORY: 1. Chronic kidney disease 2. Seizure disorder 3. History of HIV 4. Lymphoma. 5. Chronic anemia 6. Peripheral vascular disease 7. Seizure disorder. PAST SURGICAL HISTORY 1. Bilateral below-knee amputation 2. Left arm below-elbow amputation. REVIEW OF SYSTEMS The patient has generalized weakness, feeling tired, has abdominal pain and generalized body pain. There is no history of nausea or vomiting. No shortness of breath, no chest pain. No palpitation. No abdominal pain. He has abdominal pain mainly the left upper abdomen which is colicky and recurrent. There is no history of diarrhea. SOCIAL HISTORY The patient is single, lives with his grandmother, he has history of using marijuana and flakkia and also drinking beer off and on. ALLERGIES He has allergy to AMOXICILLIN PENICILLIN. MEDICATIONS 1. Currently he is on normal saline at 100 an hour. 2. Lexiva 700 mg b.i.d. 3. Viabahn 300 mg b.i.d. 4. Janeen-Colace one b.i.d. 5. Pepcid 20 mg q.h.s. 6. IPV 150 mg daily. 7. <<4:28>> 100 mg b.i.d. 8. Keppra 750 mg q. 12-hour 9. Heparin 5000 Subcu q. 12-hour 10. Zofran as needed PHYSICAL EXAMINATION: IN GENERAL: On examination the patient is awake, alert. He is not in acute distress. VITAL SIGNS: Blood pressure is 123/80 temperature is 97.8, oxygen saturation 96-97%. HEAD, EYES, EARS, NOSE, AND THROAT: Pupils are mid constricted. Nonicteric sclera, conjunctiva pale. NECK: Supple. JVD is not elevated. LUNGS: The patient has bilateral good air entry with occasional wheezing. HEART: Sinus regular rhythm. ABDOMEN: Soft lax slightly distended. There is no tenderness. Bowel sounds positive. EXTREMITIES: He has bilateral below-knee amputation. INVESTIGATIONS: Investigation WBC count is 9.8, hemoglobin 11.4, platelet count of 318, sodium 32, potassium 3.4, chloride 95, bicarb 18, 16.4, BUN 82, creatinine 7.2, calcium is 8.5, AST, ALT normal creatinine kinase 437. CK is 1.6, total protein 9.8 with albumin of 3.8 and lipase is 325, INR is 0.9. This was an old one, metered hydroxybutyrate is 3.59. His last CD-4 cell count was 451. This was in 2014. IMAGING STUDIES The patient has CT scan of the head done yesterday which shows normal examination. Abdomen and pelvis CT scan done without IV contrast and shows a cholelithiasis without cholecystitis. Surgical absence of the spleen, kidneys mentioned normal in size. No mass or hydronephrosis. Chest x-ray was done which shows lung tony clear. ASSESSMENT/PLAN 1. Chronic kidney disease, advanced renal failure 2. History of HIV. 3. Seizure disorder. 4. Metabolic acidosis. 5. Anemia. 6. A history of HIV disease. 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 He has mild to moderate proteinuria some of the symptoms he has from uremia and his GFR has been low with a very high creatinine, considering it is small-sized, so he will need to start on dialysis. I discussed with the patient and he agreed to start dialysis will start him on hemodialysis. I will also discuss with him over the peritoneal dialysis but I will discuss more with his family to see if they can help him because he has only has one hand to work with. Thank you for the consultation and I will follow the patient while he is in the hospital. MD SHEILA Johnson/kulwinder /9:57 AM /10:16 AM
[2017-01-17] MEDS: HEPARIN SODIUM - SQ 10,000 UNITS/ML VIAL SQ SCH ×2 (10:50→21:45)
[2017-01-17] MEDS: SODIUM CHLOR 0.9% 1000 ML INJ 1,000 ML IV SCH (10:52)
[2017-01-17] MEDS: NYSTAT/DIPHENHY/LIDO MOUTHWASH (Adult) 120ML SWISH-SWAL SCH ×4 (11:04→21:00)
[2017-01-17 11:11] LABS: AUTOMATED NEUTROPHIL # 5.5 TH/MM3 (1.8-7.7); BASOPHIL % 0.4 % (0.0-2.0); EOSINOPHIL # 0.1 TH/MM3 (0-0.4); EOSINOPHIL % 1.4 % (0.0-4.0); HEMATOCRIT 27.2 % (39.0-51.0); HEMOGLOBIN 8.5 GM/DL (13.0-17.0); LYMPH % 26.9 % (9.0-44.0); LYMPHOCYTE # 2.5 TH/MM3 (1.0-4.8); MEAN CELL VOLUME 77.5 FL (80.0-100.0); MEAN CORPUSCULAR HEMOGLOBIN 24.3 PG (27.0-34.0); MEAN CORPUSCULAR HGB CONC 31.4 % (32.0-36.0); MONO % 12.3 % (0.0-8.0); MONOCYTE # 1.1 TH/MM3 (0-0.9); PLATELET COUNT 257 TH/MM3 (150-450); RED BLOOD COUNT 3.51 MIL/MM3 (4.50-5.90); RED CELL DISTRIBUTION WIDTH 14.2 % (11.6-17.2); WHITE BLOOD COUNT 9.3 TH/MM3 (4.0-11.0)
[2017-01-17 11:34] LABS: ALBUMIN 2.6 GM/DL (3.4-5.0); BICARBONATE 19.3 MEQ/L (21.0-32.0); CREATININE 6.14 MG/DL (0.60-1.30); MAGNESIUM 2.6 MG/DL (1.5-2.5); PHOSPHORUS 6.3 MG/DL (2.5-4.9); TOTAL BILIRUBIN ADULT 0.4 MG/DL (0.2-1.0); TOTAL PROTEIN 7.1 GM/DL (6.4-8.2)
[2017-01-17 11:46] LABS: CALCIUM 6.6 MG/DL (8.5-10.1); CALCIUM-PROTEIN CORRECTED 6.6 MG/DL (8.5-10.1)
--- NOTE | 2017-01-17 11:59 | PD.CONS ---
HPI History of Present Illness This is a 26 year old male with a history of HIV on antiretroviral therapy, chronic kidney disease, seizure disorder who presented to the emergency room for abdominal pain, generalized malaise, and headache. His symptoms began the day before yesterday. He reports an intermittent aching pain in his epigastric area and mid abdominal area that seems to be aggravated by movement and coughing. There is no radiation and he denies any relation to food intake. He denies any nausea, vomiting, heartburn. He does report that a few days ago, he had diarrhea with a few loose stools, but that it only lasted a day and he is no longer having. He reports that he is eating without difficulty and has not lost any weight. He was having progressively worsening generalized fatigue and malaise and therefore came to the emergency room for further evaluation. CT Scan abdomen and pelvis without iv contrast (01/16/17)----> Cholelithiasis without cholecystitis. Surgical absence of the spleen. Otherwise negative abdomen. He answer "yes" when asked if he has any history of stomach issues, but does not elaborate and is playing on his phone. 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 (Demetria Saucedo) Coded Allergies: amoxicillin (Unverified Allergy, Unknown, 01/16/17) penicillin G (Unverified Allergy, Unknown, 01/16/17) Medications Allergies Coded Allergies Type Severity Reaction Last Updated Verified amoxicillin Allergy Unknown 01/16/17 No penicillin G Allergy Unknown 01/16/17 No Active Scripts Medications Dose Route/Sig Max Daily Dose Days Date Category Dose Instructions Keppra (Levetiracetam) 250 Mg Tab 750 Mg PO Q12HR 05/28/16 Rx Norvir (Ritonavir) 100 Mg Cap 100 Mg PO BID 05/19/16 Reported Epivir (Lamivudine) 150 Mg Tab 150 Mg PO DAILY 05/19/16 Reported *Fill this 5 day prescription first and begin taking Epivir 12 hours after the first dose received in the Emergency Department as prescribed.* Lexiva (Fosamprenavir Calcium) 700 Mg Tab 1 Tab PO BID 05/19/16 Reported Ziagen (Abacavir Sulfate) 300 Mg Tab 300 Mg PO BID 05/19/16 Reported Hazardous agent; use appropriate precautions for handling & disposal. Family History Mother from unknown cancer Social History Denies tobacco use. Occasional ETOH use +Marijuana Pt denies using Flacca (LewisDemetria Houseprem [place]AG[place]) Review of Systems Constitutional: COMPLAINS OF: Fatigue, DENIES: Fever, Weight loss, Chills, Change in appetite Respiratory: COMPLAINS OF: Cough, DENIES: Shortness of breath Cardiovascular: DENIES: Chest pain Gastrointestinal: COMPLAINS OF: Abdominal pain, Diarrhea, DENIES: Black stools , Bloody stools, Constipation, Nausea, Vomiting, Heartburn, Hematemesis Musculoskeletal: COMPLAINS OF: Muscle aches Integumentary: DENIES: Rash Neurologic: COMPLAINS OF: Headache Psychiatric: DENIES: Confusion (SaucedoDemetria) GI Exam Vitals I&O Vital Signs Date Time Temp Pulse Resp B/P (MAP) Pulse Ox O2 Delivery O2 Flow Rate FiO2 01/17/17 11:32 97.5 87 20 115/80 (92) 99 01/17/17 08:22 97.8 80 22 123/80 (94) 96 01/17/17 05:01 98.7 98 18 122/72 (89) 97 01/17/17 02:14 98.1 67 18 118/74 (89) 98 01/17/17 01:05 01/17/17 00:17 14 98 Room Air 01/17/17 00:15 109 15 112/64 (80) 98 Room Air 01/16/17 21:02 98.6 120 15 147/94 (111) 98 Room Air I/O 01/16/17 01/16/17 01/16/17 01/17/17 01/17/17 01/17/17 07:00 15:00 23:00 07:00 15:00 23:00 Intake Total 1000 ml 946 ml Output Total 1300 ml 1350 ml Balance 1000 ml -354 ml -1350 ml Intake Oral 946 ml IV Total 1000 ml Output Urine Total 1300 ml 1350 ml Imaging Last Impressions Catheter Placement X-Ray 01/17/17 0000 Signed Impressions: Service Date/Time: Tuesday, January 17, 2017 12:35 - CONCLUSION: Uncomplicated line placement as above. Colton Friend Jr., MD Chest X-Ray 01/16/170 Signed Impressions: Service Date/Time: Monday, January 16, 2017 21:37 - CONCLUSION: No acute disease. No significant change has occurred. Gilmar Benton MD Head CT 01/16/17 0000 Signed Impressions: Service Date/Time: Monday, January 16, 2017 21:27 - CONCLUSION: Normal examination. No significant change has occurred. Gilmar Benton MD Abdomen/Pelvis CT 01/16/17 0000 Signed Impressions: Service Date/Time: Monday, January 16, 2017 21:31 - CONCLUSION: Cholelithiasis without cholecystitis. Surgical absence the spleen. Otherwise negative abdomen Gilmar Benton MD Laboratory Test 01/16/17 21:28 01/16/17 21:30 01/17/17 10:36 Blood Gas Puncture Site IV Blood Gas Patient Temperature 98.6 Venous Blood pH 7.29 Venous Blood Partial Pressure CO2 34 mmHg Venous Blood Partial Pressure O2 43 mmHg Venous Blood HCO3 16 mmol/L Venous Blood Oxygen Saturation 72 % Venous Blood Oxygen Content 10.5 Vol % Venous Blood Base Excess -9.6 mmol/L Oxygen Delivery Device ROOM AIR Blood Gas Inspired Oxygen 21 % White Blood Count 9.8 TH/MM3 9.3 TH/MM3 Red Blood Count 4.57 MIL/MM3 3.51 MIL/MM3 Hemoglobin 11.4 GM/DL 8.5 GM/DL Hematocrit 35.3 % 27.2 % Mean Corpuscular Volume 77.4 FL 77.5 FL Mean Corpuscular Hemoglobin 25.0 PG 24.3 PG Mean Corpuscular Hemoglobin Concent 32.3 % 31.4 % Red Cell Distribution Width 14.7 % 14.2 % Platelet Count 318 TH/MM3 257 TH/MM3 Mean Platelet Volume 9.5 FL 9.0 FL Neutrophils (%) (Auto) 52.6 % 59.0 % Lymphocytes (%) (Auto) 31.3 % 26.9 % Monocytes (%) (Auto) 13.4 % 12.3 % Eosinophils (%) (Auto) 2.2 % 1.4 % Basophils (%) (Auto) 0.5 % 0.4 % Neutrophils # (Auto) 5.2 TH/MM3 5.5 TH/MM3 Lymphocytes # (Auto) 3.1 TH/MM3 2.5 TH/MM3 Monocytes # (Auto) 1.3 TH/MM3 1.1 TH/MM3 Eosinophils # (Auto) 0.2 TH/MM3 0.1 TH/MM3 Basophils # (Auto) 0.0 TH/MM3 0.0 TH/MM3 CBC Comment DIFF FINAL DIFF FINAL Differential Comment Blood Urea Nitrogen 82 MG/DL 64 MG/DL Creatinine 7.22 MG/DL 6.14 MG/DL Random Glucose 105 MG/DL 93 MG/DL Total Protein 9.8 GM/DL 7.1 GM/DL Albumin 3.8 GM/DL 2.6 GM/DL Calcium Level 8.5 MG/DL 6.6 MG/DL Alkaline Phosphatase 91 U/L 66 U/L Aspartate Amino Transf (AST/SGOT) 23 U/L 19 U/L Alanine Aminotransferase (ALT/SGPT) 28 U/L 18 U/L Total Bilirubin 0.4 MG/DL 0.4 MG/DL Sodium Level 132 MEQ/L 138 MEQ/L Potassium Level 3.4 MEQ/L 3.2 MEQ/L Chloride Level 95 MEQ/L 109 MEQ/L Carbon Dioxide Level 16.4 MEQ/L 19.3 MEQ/L Anion Gap 21 MEQ/L 10 MEQ/L Estimat Glomerular Filtration Rate 11 ML/MIN 13 ML/MIN Total Creatine Kinase 437 U/L Creatine Kinase MB 1.6 NG/ML Creatine Kinase MB % 0.4 % Lipase 325 U/L B-Hydroxybutyrate 3.59 MMOL/L Phosphorus Level 6.3 MG/DL Magnesium Level 2.6 MG/DL Protein Corrected Calcium 6.6 MG/DL Physical Examination HEENT: Normocephalic; atraumatic PULMONARY: Resp. even/unlabored, CARDIAC: RRR ABDOMEN: Soft, nondistended, nontender; no hepatosplenomegaly; bowel sounds are present in all four quadrants. 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 Poor historian (Demetria Saucedo) Assessment and Plan Plan ASSESSMENT: - Abdominal pain. C/O 2 day hx of epigastric, mid abdominal pain described as a dull ache whenever he coughs or moves. No relation to food intake. Appetite good. Denies n/v, heartburn, reflux, melena, hematochezia. Did have loose stool a few days ago, but states it resolved and he is no longer having. CT scan abdomen and pelvis (01/16/17)---> Cholelithiasis without cholecystitis, surgical absence of the spleen, otherwise unremarkable. ? Musculoskeletal. - Anemia with drop in hgb 11.4---> 8.5/27.2. He is not having any obvious active bleeding. This is likely multifactorial, with at least some component related to his acute renal failure. Will monitor. Hemoccult stool. Consider EGD Thursday. - ARF on CKD with electrolyte abnormalities. S/P Vascath placement. Nephrology following, he is to be started on HD today. - HIV, Seizure d/o, hx lymphoma (14 years ago per patient), PVD per attending. PLAN: - Renal diet - Cont. Pepcid - Await iron studies, ferritin - Hemoccult positive stool - Monitor HH - Transfuse as necessary - Supportive care - Consider EGD Thursday if further drop in hgb or active bleeding - Pt seen and examined by Dr. Ayala and myself and this note is written on his behalf (Demetria Saucedo) Physician Comments Patient seen and examined Agree with above Continue with current supportive care Monitor labs Probable EGD on Thursday (Diony Ayala MD) Demetria Saucedo Jan 17, 2017 11:59 Diony Ayala MD Jan 17, 2017 17:31
[2017-01-17] MEDS: CALCIUM GLUCONATE INJ 1 GM in DEXTROSE 5% IN WATER 100ML INJ 100 ML IV ONE ×4 (12:15→14:42)
[2017-01-17] MEDS ORDERED: HEPARIN SODIUM - IV 10,000 UNITS/10 ML VIAL IV ONE (12:45)
--- NOTE | 2017-01-17 12:55 | PD.RAD ---
Post Procedure Progress Note Pre Procedure Diagnosis: (1) Acute renal failure Post Procedure Diagnosis: (1) Acute renal failure Procedure Date: Jan 17, 2017 Supervising Radiologist: Colton Friend JR Proceduralist/Assist: Gail Copeland, RT(R), Jacques Reynaga RT(R)() Anesthesia: Local Plan of Activity Patient to Unit: Nursing Unit Patient Condition: Good See PACS Report for procedural detail/treatment Central Venous Access Device Procedure 1 Right Internal Jugular Hemodialysis Catheter Non-Tunneled Placement dual lumen Bel[place]ian: 14 Findings: Cath functions well. OK to use. Jr. Phuc,Colton Jacobs MD Jan 17, 2017 12:55
[2017-01-17] MEDS ORDERED: SODIUM CHLORIDE 0.9% FLUSH 10 ML FLUSH IV FLUSH PRN ×2 (13:00→14:15)
[2017-01-17] MEDS ORDERED: HEPARIN SODIUM - IV 2,000 UNITS/2 ML VIAL IV FLUSH PRN (13:00)
--- NOTE | 2017-01-17 13:27 | RADRPT ---
EXAM DATE/TIME: 01/17/2017 12:35 [facility] COMPARISON: No previous studies available for comparison. INDICATIONS : Patient with a history of acute kidney injury. MEDICAL HISTORY : Seizures HIV Lymphoma CKD SURGICAL HISTORY : Spleenectomy Bilatera BKA LUE amputation ENCOUNTER: Initial ACUITY: 4-6 days PAIN SCORE: 7/10 LOCATION: Abdomen FLUORO TIME: 0.4 minutes IMAGE SERIES: 1 ACCESS: Right internal jugular vein DEVICE(S): 1.) 14 Kiswahili dual lumen 15 cm Vas Cath PROCEDURE : 1. Ultrasound guided venipuncture. 2. Fluoroscopic guidance. 3. Central line placement. The risks, benefits and alternatives to the procedure were explained and verbal and written consent w as obtained. The site was prepped in sterile fashion. Full sterile technique was used, including ca p, mask, sterile gloves and gown and a large sterile sheet. Hand hygiene and 2% chlorhexidine prep w as utilized per protocol for cutaneous antisepsis with appropriate dry time for site. Sterile gel an d sterile probe cover were utilized for ultrasound guidance. The skin and subcutaneous tissues were infiltrated with local anesthetic solution. A suitable site a javier the vein was selected with ultrasound and fluoroscopic guidance. A small incision was made. Th e vein was accessed under direct ultrasound visualization using the micropuncture technique. The dmitri ropuncture set was exchanged for a 0.035 wire. The tract was dilated. The catheter was advanced int o position under direct fluoroscopic visualization. The catheter was fixed in place with suture and a sterile dressing was applied. The patient tolerated the procedure well and there were no complications. CONCLUSION: Uncomplicated line placement as above. Colton Friend Jr., MD on January 17, 2017 at 13:26 Board Certified Radiologist. This report was verified electronically.
[2017-01-17] MEDS ORDERED: SODIUM CHLOR 0.9% 1000 ML INJ 1,000 ML OTHER PRN ×2 (14:14)
[2017-01-17] MEDS ORDERED: ACETAMINOPHEN 325 MG TAB PO PRN (14:15)
[2017-01-17] MEDS ORDERED: ONDANSETRON HCL 4 MG/2 ML VIAL IV PUSH PRN (14:15)
[2017-01-17] MEDS ORDERED: ALBUMIN 25% INJ 100 ML IV PRN (14:15)
[2017-01-17] MEDS ORDERED: MANNITOL 12.5 GM/50 ML VIAL IV PRN (14:15)
[2017-01-17] MEDS ORDERED: GELATIN 12 MM/7 MM FOAM TOP PRN (14:15)
[2017-01-17] MEDS ORDERED: cloNIDine HCL 0.1 MG TAB PO PRN (14:15)
[2017-01-17] MEDS ORDERED: NITROGLYCERIN 0.4 MG SL 25 TABS/BTL SL PRN (14:15)
[2017-01-17] MEDS ORDERED: HEPARIN SODIUM - IV 10,000 UNITS/10 ML VIAL IV FLUSH PRN (14:15)
[2017-01-17] MEDS ORDERED: SODIUM CHLOR 0.9% 1000 ML INJ 1,000 ML IV PRN (15:00)
[2017-01-17] MEDS: GENTAMICIN SULFATE (DIALYSIS USE ONLY) 20 MG/2 ML VIAL OTHER PRN (17:46)
[2017-01-17] MEDS: EPOETIN ALFA 10,000 UNITS/ML VIAL IV PUSH PRN (17:46)
[2017-01-17] MEDS: HEPARIN SODIUM - IV 10,000 UNITS/10 ML VIAL PRN (17:47)
[2017-01-17] MEDS: FAMOTIDINE 20 MG TAB PO SCH (21:45)
[2017-01-17] MEDS: CALCIUM CARBONATE 500 MG CHEWABLE TAB CHEW SCH (21:45)
[2017-01-17 23:46] LABS: BACTERIA, URINE RARE /hpf; BILIRUBIN, URINE NEG (NEG); BLOOD, URINE SMALL (NEG); GLUCOSE,URINE TRACE mg/dL (NEG); KETONE, URINE 10 mg/dL (NEG); MUCUS URINE FEW /lpf (OCC); NITRITE,URINE NEG (NEG); PH, URINE 6.5 (5.0-8.5); SQUAMOUS EPITHELIAL CELL URINE <1 /hpf (0-5); URINE COLOR LIGHT-YELLOW (YELLW/STRAW); URINE LEUKOCYTE ESTERASE NEG (NEG)
[2017-01-18 01:30] VITALS: O2SAT 98
[2017-01-18 04:00] VITALS: BP 129/91; PULSE 107; RESP 19; TEMP 99.4; O2SAT 99
[2017-01-18 06:38] LABS: HEMATOCRIT 29.7 % (39.0-51.0); HEMOGLOBIN 9.5 GM/DL (13.0-17.0); MEAN CELL VOLUME 77.4 FL (80.0-100.0); MEAN CORPUSCULAR HEMOGLOBIN 24.8 PG (27.0-34.0); MEAN CORPUSCULAR HGB CONC 32.1 % (32.0-36.0); MEAN PLATELET VOLUME 10.2 FL (7.0-11.0); PLATELET COUNT 255 TH/MM3 (150-450); RED BLOOD COUNT 3.83 MIL/MM3 (4.50-5.90); RED CELL DISTRIBUTION WIDTH 14.3 % (11.6-17.2); WHITE BLOOD COUNT 9.5 TH/MM3 (4.0-11.0)
[2017-01-18 06:58] LABS: % SATURATION IRON PROFILE 13.2 % (20-50); BICARBONATE 19.7 MEQ/L (21.0-32.0); BLOOD UREA NITROGEN 31 MG/DL (7-18); CALCIUM 7.9 MG/DL (8.5-10.1); CHLORIDE 99 MEQ/L (98-107); CREATININE 4.47 MG/DL (0.60-1.30); FERRITIN 494 NG/ML (26-388); GLOMERULAR FILTRATION RATE 19 ML/MIN (>89); GLUCOSE,RANDOM 96 MG/DL (74-106); IRON (FE) 35 MCG/DL (65-175); SODIUM (NA) 135 MEQ/L (136-145); TOTAL IRON BINDING CAPACITY 266 MCG/DL (250-450)
[2017-01-18 08:00] VITALS: BP 143/95; PULSE 76; RESP 16; TEMP 98.9; O2SAT 92
[2017-01-18] MEDS ORDERED: POTASSIUM CHLORIDE 10 MEQ CONTROLLED RELEASE TAB PO SCH (09:00)
[2017-01-18] MEDS: DOCUSATE SODIUM 50 MG/SENNA 8.6 MG TAB PO SCH ×2 (09:47→22:08)
[2017-01-18] MEDS: levETIRAcetam 250 MG TAB PO SCH ×2 (09:47→22:09)
[2017-01-18] MEDS: CALCIUM CARBONATE 500 MG CHEWABLE TAB CHEW SCH ×2 (09:47→22:08)
[2017-01-18] MEDS: ABACAVIR SULFATE 300 MG TAB PO SCH ×2 (09:48→22:08)
[2017-01-18] MEDS: HEPARIN SODIUM - SQ 10,000 UNITS/ML VIAL SQ SCH ×2 (09:48→22:09)
[2017-01-18] MEDS: FOSAMPRENAVIR CALCIUM PO SCH ×2 (09:48→22:08)
[2017-01-18] MEDS: SODIUM CHLORIDE 0.9% FLUSH 10 ML FLUSH IV FLUSH SCH ×2 (09:48→22:14)
[2017-01-18] MEDS: RITONAVIR 100 MG TAB PO SCH ×2 (09:48→22:08)
[2017-01-18] MEDS: POTASSIUM CHLOR 20 MEQ PREMIX 100 ML IV SCH ×2 (09:49→12:47)
--- NOTE | 2017-01-18 10:52 | HHI.NPPN ---
Subjective History of Present Illness 26-year-old male known to me from his last visit when he was admitted 8 months ago. He has past medical history, history of HIV, Lymphoma, Peripheral vascular disease, Seizure disorder,Chronic kidney disease, Advanced renal failure. He came to the hospital with abdominal pain and generalized weakness. Additional Remarks Patient is alert, feeling better, no vomiting now, no SOB. Review of Systems General Constitutional: Fatigue Cardiovascular Cardiac: HERMAN Gastrointestinal Gastrointestinal: Abdominal Pain, Nausea & Vomiting Objective Data Data Vital Signs Date Time Temp Pulse Resp B/P (MAP) Pulse Ox O2 Delivery O2 Flow Rate FiO2 01/18/17 04:00 99.4 107 19 129/91 (104) 99 01/18/17 01:30 98 21 01/17/17 23:58 99.5 110 18 120/82 (95) 99 01/17/17 21:35 99.0 115 18 141/97 (112) 96 01/17/17 21:01 97 21 01/17/17 20:09 98.7 78 18 134/95 (108) 97 01/17/17 11:32 97.5 87 20 115/80 (92) 99 -: 01/18/17 0545 01/18/17 0545 Physical Exam General Appearance: No Acute Distress, Comfortable Eyes Eye Exam: Pupils Equal Pulmonary Resp Exam: Clear Bilaterally, Breath Sounds Equal, No Distress Cardiology CV Exam: Regular, Normal Sinus Rhythm Gastrointestinal/Abdomen GI Exam: Soft, Non-Tender, Bowel Sounds Present Extremeties Extremeties Remarks Bilateral BKA. Neurologic Neuro Exam: Alert, Awake, Oriented Psychiatric Psych Exam: Appropriate Responses Assessment/Plan Assessment Summary: Anemia of CKD, CKD Stage V, End Stage Renal Disease Electrolyte Assessment: Hypocalcemia, Hypokalemia Problem List: (1) Stage 5 chronic kidney disease ICD Codes: N18.5 - Chronic kidney disease, stage 5 (2) Hypertension Status: Chronic (3) Anemia Status: Chronic (4) Human immunodeficiency virus (HIV) positive Status: Chronic (5) Nausea ICD Codes: R11.0 - Nausea Status: Resolved (6) Seizure disorder Status: Chronic Plan Patient has Vascath and started on HD. Tolerated well and feeling better. K is low and replaced. calcium is better. HD again in AM. I discuss with him about PD and HD,. 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 will be a better candidate for PD, but will need some help from family. Levi Solis MD Jan 18, 2017 10:52
[2017-01-18] MEDS: NYSTAT/DIPHENHY/LIDO MOUTHWASH (Adult) 120ML SWISH-SWAL SCH ×4 (11:25→22:14)
[2017-01-18 12:00] VITALS: BP 126/93; PULSE 98; RESP 16; TEMP 97.6; O2SAT 97
--- NOTE | 2017-01-18 12:18 | HHI.GIFU ---
Subjective Remarks Resting in bed, in no apparent distress. Continues to have epigastric pain. No nausea or vomiting. (Harleen Martinez) Objective Vitals I&O Vital Signs Date Time Temp Pulse Resp B/P (MAP) Pulse Ox O2 Delivery O2 Flow Rate FiO2 01/18/17 08:00 98.9 76 16 143/95 (111) 92 01/18/17 04:00 99.4 107 19 129/91 (104) 99 01/18/17 01:30 98 21 01/17/17 23:58 99.5 110 18 120/82 (95) 99 01/17/17 21:35 99.0 115 18 141/97 (112) 96 01/17/17 21:01 97 21 01/17/17 20:09 98.7 78 18 134/95 (108) 97 I/O 01/17/17 01/17/17 01/17/17 01/18/17 01/18/17 01/18/17 07:00 15:00 23:00 07:00 15:00 23:00 Intake Total 946 ml 360 ml 480 ml Output Total 1300 ml 2300 ml 1600 ml 3 ml Balance -354 ml -2300 ml -1240 ml 477 ml Intake Oral 946 ml 360 ml 480 ml Output Urine Total 1300 ml 2300 ml 600 ml 3 ml Hemodialysis 1000 ml # Voids 0 # Bowel Movements 0 Laboratory Laboratory Tests Test 01/17/17 18:45 01/17/17 23:14 01/18/17 05:45 Urine Color LIGHT-YELLOW Urine Turbidity CLEAR Urine pH 6.5 Urine Specific [place] 1.006 Urine Protein 300 Urine Glucose (UA) TRACE Urine Ketones 10 Urine Occult Blood SMALL Urine Nitrite NEG Urine Bilirubin NEG Urine Urobilinogen LESS THAN 2.0 Urine Leukocyte Esterase NEG Urine RBC 1 Urine WBC 4 Urine Squamous Epithelial Cells <1 Urine Bacteria RARE Urine Mucus FEW Microscopic Urinalysis Comment CULT NOT INDICATED Urine Opiates Screen NEG Urine Barbiturates Screen NEG Urine Amphetamines Screen NEG Urine Benzodiazepines Screen NEG Urine Cocaine Screen NEG Urine Cannabinoids Screen POS White Blood Count 9.5 Red Blood Count 3.83 Hemoglobin 9.5 Hematocrit 29.7 Mean Corpuscular Volume 77.4 Mean Corpuscular Hemoglobin 24.8 Mean Corpuscular Hemoglobin Concent 32.1 Red Cell Distribution Width 14.3 Platelet Count 255 Mean Platelet Volume 10.2 Blood Urea Nitrogen 31 Creatinine 4.47 Random Glucose 96 Calcium Level 7.9 Sodium Level 135 Potassium Level 2.9 Chloride Level 99 Carbon Dioxide Level 19.7 Anion Gap 16 Estimat Glomerular Filtration Rate 19 Iron Level 35 Total Iron Binding Capacity 266 Percent Iron Saturation 13.2 Ferritin 494 Imaging Last Impressions Catheter Placement X-Ray 01/17/17 0000 Signed Impressions: Service Date/Time: Tuesday, January 17, 2017 12:35 - CONCLUSION: Uncomplicated line placement as above. Colton Friend Jr., MD Chest X-Ray 01/16/172119 Signed Impressions: Service Date/Time: Monday, January 16, 2017 21:37 - CONCLUSION: No acute disease. No significant change has occurred. Gilmar Benton MD Head CT 01/16/17 0000 Signed Impressions: Service Date/Time: Monday, January 16, 2017 21:27 - CONCLUSION: Normal examination. No significant change has occurred. Gilmar Benton MD Abdomen/Pelvis CT 01/16/17 0000 Signed Impressions: Service Date/Time: Monday, January 16, 2017 21:31 - CONCLUSION: Cholelithiasis without cholecystitis. Surgical absence the spleen. Otherwise negative abdomen Gilmar Benton MD Physical Exam HEENT: Normocephalic; atraumatic. NECK: Neck is supple. CHEST: CTA CARDIAC: RRR with no murmur gallop or rubs. ABDOMEN: Soft, nondistended, nontender; no hepatosplenomegaly; bowel sounds are present in all four quadrants. EXTREMITIES: No clubbing, cyanosis, or edema. SKIN: Normal; no rash; no jaundice. 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 Poor historian. (Harleen Martinez) Assessment and Plan Plan ASSESSMENT: - Abdominal pain. C/O 2 day hx of epigastric, mid abdominal pain described as a dull ache whenever he coughs or moves. No relation to food intake. Appetite good. Denies n/v, heartburn, reflux, melena, hematochezia. Did have loose stool a few days ago, but states it resolved and he is no longer having. CT scan abdomen and pelvis (01/16/17)---> Cholelithiasis without cholecystitis, surgical absence of the spleen, otherwise unremarkable. ? Musculoskeletal. - Anemia with drop in hgb 11.4---> 8.5/27.2. HH today 9.5/29.7. He is not having any obvious active bleeding. This is likely multifactorial, with at least some component related to his acute renal failure. Iron 35, Ferritin 494. Hemoccult stool. Plan for EGD Thursday. - ARF on CKD with electrolyte abnormalities. S/P Vascath placement. Nephrology following. On HD. - HIV, Seizure d/o, hx lymphoma (14 years ago per patient), PVD per attending. PLAN: - Renal diet - EGD Thursday - Obtain consents - NPO after MN tonight - Cont. Pepcid - Hemoccult positive stool - Monitor HH, transfuse as necessary - Supportive care Patient seen and examined by Dr. Ayala and myself and this note is written on his behalf (Harleen Martinez) Physician Comments Patient seen and examined Agree with above Continue with current supportive care Monitor labs EGD tomorrow (Diony Ayala MD) Harleen Martinez Jan 18, 2017 12:18 Diony Ayala MD Jan 18, 2017 14:10
--- NOTE | 2017-01-18 14:30 | HHI.PR ---
Subjective Remarks Follow-up for ESRD, abdominal pain. Patient is currently doing well. No acute concerns. Objective Vitals Vital Signs Date Time Temp Pulse Resp B/P (MAP) Pulse Ox O2 Delivery O2 Flow Rate FiO2 01/18/17 08:00 98.9 76 16 143/95 (111) 92 01/18/17 04:00 99.4 107 19 129/91 (104) 99 01/18/17 01:30 98 21 01/17/17 23:58 99.5 110 18 120/82 (95) 99 01/17/17 21:35 99.0 115 18 141/97 (112) 96 01/17/17 21:01 97 21 01/17/17 20:09 98.7 78 18 134/95 (108) 97 I/O 01/17/17 01/17/17 01/17/17 01/18/17 01/18/17 01/18/17 07:00 15:00 23:00 07:00 15:00 23:00 Intake Total 946 ml 360 ml 480 ml 100 ml Output Total 1300 ml 2300 ml 1600 ml 3 ml Balance -354 ml -2300 ml -1240 ml 477 ml 100 ml Intake Oral 946 ml 360 ml 480 ml IV Total 100 ml Output Urine Total 1300 ml 2300 ml 600 ml 3 ml Hemodialysis 1000 ml # Voids 0 # Bowel Movements 0 Result Diagram: 01/18/17 0545 01/18/17 0545 Imaging Last Impressions Catheter Placement X-Ray 01/17/17 0000 Signed Impressions: Service Date/Time: Tuesday, January 17, 2017 12:35 - CONCLUSION: Uncomplicated line placement as above. Colton Friend Jr., MD Chest X-Ray 01/16/172119 Signed Impressions: Service Date/Time: Monday, January 16, 2017 21:37 - CONCLUSION: No acute disease. No significant change has occurred. Gilmar Benton MD Head CT 01/16/17 0000 Signed Impressions: Service Date/Time: Monday, January 16, 2017 21:27 - CONCLUSION: Normal examination. No significant change has occurred. Gilmar Benton MD Abdomen/Pelvis CT 01/16/17 0000 Signed Impressions: Service Date/Time: Monday, January 16, 2017 21:31 - CONCLUSION: Cholelithiasis without cholecystitis. Surgical absence the spleen. Otherwise negative abdomen Gilmar Benton MD Objective Remarks GENERAL: Alert, oriented 3, NAD. SKIN: Warm and dry. HEAD: Normocephalic. EYES: No scleral icterus. No injection or drainage. NECK: Supple, trachea midline. No JVD or lymphadenopathy. CARDIOVASCULAR: Regular rate and rhythm without murmurs, gallops, or rubs. RESPIRATORY: Breath sounds equal bilaterally. No accessory muscle use. GASTROINTESTINAL: Abdomen soft, non-tender, nondistended. MUSCULOSKELETAL: No cyanosis, or edema. BACK: Nontender without obvious deformity. No CVA tenderness. Procedures Vas-Cath placed on 01/17/2017 A/P Problem List: (1) Seizure disorder Status: Chronic (2) KVNG (acute kidney injury) ICD Code: N17.9 - Acute kidney failure, unspecified Status: Acute (3) Metabolic acidosis ICD Code: E87.2 - Acidosis Status: Chronic (4) Non-compliance ICD Code: Z91.19 - Patient's noncompliance with other medical treatment and regimen Status: Chronic (5) HIV (human immunodeficiency virus infection) ICD Code: Z21 - Asymptomatic human immunodeficiency virus [HIV] infection status Status: Chronic Assessment and Plan 26-year-old male with a PMH of HIV (Last CD4 451 on 08/09/14), Seizure Disorder, CKD, Lymphoma and Non-Compliance who presented with multiple complaints including headache, abdominal pain, and generalized weakness Abdominal pain: Mild. Epigastric. Lipase and LFTs within normal limits. CT abdomen shows cholelithiasis without cholecystitis, s/p splenectomy, otherwise no acute process. Conginue H2 markell and Magic mouthwash. GI will likely perform EGD on 01/19/2017. Seizure Disorder: Chronic. Reported "mini seizures" as off medications, seen in ER on 12/24/16 for similar complaints, however LEFT AMA. No seizure activity during admission. Seizure Precautions, resumed home Keppra. Ativan prn if needed. CT Head w/ no acute findings. End stage renal disease - Patient is currently receiving hemodialysis using Vas-Cath. - Discussed with Dr. Slois who will arrange a pre press manager to discuss with patient/family regarding different dialysis options. - Patient may benefit from peritoneal dialysis instead of HD. - He will likely need a PermaCath prior to discharge. HIV: Last CD4 451 on 08/09/14. Reports compliance w/ HAART, however unsure of recent CD4. Continue home HAART medications. Non-Compliance: Chronic noncompliance with medication meds and outpatient follow -up. DVT Prophylaxis: Heparin Discharge Plan: If patient decides to go with PD, potential discharge early this week. Mehreen Branch DO Jan 18, 2017 2:30 pm
[2017-01-18 16:00] VITALS: BP 139/100; PULSE 85; RESP 16; TEMP 98; O2SAT 94
[2017-01-18 20:15] VITALS: BP 141/97; PULSE 85; RESP 16; TEMP 98.9; O2SAT 95
[2017-01-18] MEDS: FAMOTIDINE 20 MG TAB PO SCH (22:08)
[2017-01-19] VITALS (7 sets, daily range): BP systolic 121–135; BP diastolic 82–95; PULSE 82–102; RESP 16–18; TEMP 97.4–99.2; O2SAT 98–100
[2017-01-19] MEDS: ACETAMINOPHEN/HYDROcodone 325 MG/10 MG TAB PO PRN ×2 (02:05→07:59)
[2017-01-19] MEDS: diphenhydrAMINE HCL 25 MG CAP PO PRN (03:50)
[2017-01-19] MEDS: levETIRAcetam 250 MG TAB PO SCH ×2 (07:57→20:46)
[2017-01-19] MEDS: RITONAVIR 100 MG TAB PO SCH ×2 (07:57→20:46)
[2017-01-19] MEDS: FOSAMPRENAVIR CALCIUM PO SCH ×2 (07:57→20:46)
[2017-01-19] MEDS: ABACAVIR SULFATE 300 MG TAB PO SCH ×2 (07:57→20:47)
[2017-01-19] MEDS: CALCIUM CARBONATE 500 MG CHEWABLE TAB CHEW SCH ×2 (07:58→20:46)
[2017-01-19] MEDS: HEPARIN SODIUM - SQ 10,000 UNITS/ML VIAL SQ SCH ×2 (07:58→20:51)
[2017-01-19] MEDS: DOCUSATE SODIUM 50 MG/SENNA 8.6 MG TAB PO SCH ×2 (07:58→20:46)
[2017-01-19] MEDS: NYSTAT/DIPHENHY/LIDO MOUTHWASH (Adult) 120ML SWISH-SWAL SCH ×4 (08:04→20:47)
[2017-01-19] MEDS: SODIUM CHLORIDE 0.9% FLUSH 10 ML FLUSH IV FLUSH SCH ×2 (08:04→20:52)
--- NOTE | 2017-01-19 10:19 | HHI.NPPN ---
Subjective History of Present Illness 26-year-old male known to me from his last visit when he was admitted 8 months ago. He has past medical history, history of HIV, Lymphoma, Peripheral vascular disease, Seizure disorder,Chronic kidney disease, Advanced renal failure. He came to the hospital with abdominal pain and generalized weakness. Additional Remarks Patient is alert, feeling better, now NPO and going for EGD. Review of Systems General Constitutional: Fatigue Cardiovascular Cardiac: HERMAN Gastrointestinal Gastrointestinal: Abdominal Pain, Nausea & Vomiting Objective Data Data Vital Signs Date Time Temp Pulse Resp B/P (MAP) Pulse Ox O2 Delivery O2 Flow Rate FiO2 01/19/17 09:31 98 01/19/17 07:20 97.4 90 16 121/82 (95) 98 01/19/17 04:15 97.6 82 16 134/93 (107) 100 01/19/17 00:15 99.2 85 17 133/91 (105) 100 01/18/17 20:15 98.9 85 16 141/97 (112) 95 01/18/17 16:00 98.0 85 16 139/100 (113) 94 01/18/17 12:00 97.6 98 16 126/93 (104) 97 -: 01/18/17 0545 01/18/17 0545 Physical Exam General Appearance: No Acute Distress, Comfortable Eyes Eye Exam: Pupils Equal Pulmonary Resp Exam: Clear Bilaterally, Breath Sounds Equal, No Distress Cardiology CV Exam: Regular, Normal Sinus Rhythm Gastrointestinal/Abdomen GI Exam: Soft, Non-Tender, Bowel Sounds Present Extremeties Extremeties Remarks Bilateral BKA. Neurologic Neuro Exam: Alert, Awake, Oriented Psychiatric Psych Exam: Appropriate Responses Assessment/Plan Assessment Summary: Anemia of CKD, CKD Stage V, End Stage Renal Disease Electrolyte Assessment: Hypocalcemia, Hypokalemia Problem List: (1) Stage 5 chronic kidney disease ICD Codes: N18.5 - Chronic kidney disease, stage 5 (2) Hypertension Status: Chronic (3) Anemia Status: Chronic (4) Human immunodeficiency virus (HIV) positive Status: Chronic (5) Nausea ICD Codes: R11.0 - Nausea Status: Resolved (6) Seizure disorder Status: Chronic Plan Patient has Vascath and started on HD. Tolerated well and feeling better. K is low and replaced. calcium is better. HD again in AM. I discuss with him about PD and HD,. 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 will be a better candidate for PD, but will need some help from family. Doing better, called PD nurse, she will try to discuss with the patient and Aunt today about PD. HD will be in afternoon. Levi Solis MD Jan 19, 2017 10:19
--- NOTE | 2017-01-19 10:24 | EKG ---
Date Performed: 01/19/2017 Time Performed: 01:03:34 PTAGE: 26 years EKG: Sinus rhythm Prolonged QT interval Possible left atrial abnormality Borderline high QRS voltage - probable normal variant Borderline ECG Compared to prior tracing no significant change PREVIOUS TRACING : 05/19/2016 [id number] DOCTOR: Juan Jose Prakash Interpretating Date/Time 01/19/2017 10:22:51
[2017-01-19] MEDS: SODIUM CHLORID 0.9% 500 ML IV PRN (10:37)
[2017-01-19 11:34] LABS: HEPATITIS A AB IGM NEGATIVE (NEGATIVE); HEPATITIS B SURFACE ANTIGEN NEGATIVE (NEGATIVE); HEPATITIS C AB IgG NEGATIVE (NEGATIVE)
[2017-01-19] MEDS ORDERED: LIDOCAINE HCL 1% PF 5 ML AMPULE OTHER ONE (12:00)
[2017-01-19] MEDS ORDERED: MIDAZOLAM HCL 2 MG/2 ML VIAL IV ONE (12:00)
[2017-01-19] MEDS ORDERED: MORPHINE SULFATE 4 MG/ML INJ IV ONE (12:00)
[2017-01-19] MEDS ORDERED: PHENYLEPH/NS 1000 MCG/10 ML SYR IV ONE (12:00)
[2017-01-19] MEDS ORDERED: PROPOFOL 200 MG/20 ML AMP IV ONE ×2 (12:00)
--- NOTE | 2017-01-19 12:34 | HHI.GIFU ---
Subjective Remarks EGD showed only mild gastritis. Biopsy taken for histology. Rule out H Pylori. Objective Vitals I&O Vital Signs Date Time Temp Pulse Resp B/P (MAP) Pulse Ox O2 Delivery O2 Flow Rate FiO2 01/19/17 09:31 98 01/19/17 07:20 97.4 90 16 121/82 (95) 98 01/19/17 04:15 97.6 82 16 134/93 (107) 100 01/19/17 00:15 99.2 85 17 133/91 (105) 100 01/18/17 20:15 98.9 85 16 141/97 (112) 95 01/18/17 16:00 98.0 85 16 139/100 (113) 94 I/O 01/18/17 01/18/17 01/18/17 01/19/17 01/19/17 01/19/17 07:00 15:00 23:00 07:00 15:00 23:00 Intake Total 480 ml 700 ml 460 ml 0 ml 100 ml Output Total 3 ml 850 ml 250 ml 300 ml Balance 477 ml -150 ml 210 ml -300 ml 100 ml Intake Oral 480 ml 600 ml 360 ml 0 ml IV Total 100 ml 100 ml Other 100 ml Output Urine Total 3 ml 850 ml 250 ml 300 ml # Bowel Movements 0 1 0 Laboratory Laboratory Tests Test 01/19/17 10:31 Potassium Level 3.2 Physical Exam HEENT: Normocephalic; atraumatic. NECK: Neck is supple. CHEST: CTA CARDIAC: RRR with no murmur gallop or rubs. ABDOMEN: Soft, nondistended, nontender; no hepatosplenomegaly; bowel sounds are present in all four quadrants. EXTREMITIES: No clubbing, cyanosis, or edema. SKIN: Normal; no rash; no jaundice. BLENDER/BRAZE APPLICATOR: No focal deficits; alert and oriented times three. Poor historian. Assessment and Plan Plan ASSESSMENT: - Abdominal pain. C/O 2 day hx of epigastric, mid abdominal pain described as a dull ache whenever he coughs or moves. No relation to food intake. Appetite good. Denies n/v, heartburn, reflux, melena, hematochezia. Did have loose stool a few days ago, but states it resolved and he is no longer having. CT scan abdomen and pelvis (01/16/17)---> Cholelithiasis without cholecystitis, surgical absence of the spleen, otherwise unremarkable. ? Musculoskeletal. - Anemia with drop in hgb 11.4---> 8.5/27.2. HH today 9.5/29.7. He is not having any obvious active bleeding. This is likely multifactorial, with at least some component related to his acute renal failure. Iron 35, Ferritin 494. Hemoccult stool. Plan for EGD Thursday. - ARF on CKD with electrolyte abnormalities. S/P Vascath placement. Nephrology following. On HD. - HIV, Seizure d/o, hx lymphoma (14 years ago per patient), PVD per attending. PLAN: - clear liquid diet - Cont. Pepcid - Colonoscopy tomorrow Clear liquid today. Golytely later today. - Hemoccult positive stool - Monitor HH, transfuse as necessary - Supportive care Jose Parada MD Jan 19, 2017 12:34
[2017-01-19] MEDS ORDERED: PEG (High)/E-LYTE SOLN 4000 ML BTL PO ONE (16:00)
--- NOTE | 2017-01-19 17:12 | HHI.PR ---
Subjective Remarks Follow-up for ESRD. Patient complains of right hand pain. He is unable to digital community manager tight due to pain. No swelling, fever, chills. Objective Vitals Vital Signs Date Time Temp Pulse Resp B/P (MAP) Pulse Ox O2 Delivery O2 Flow Rate FiO2 01/19/17 13:18 113 18 125/74 (91) 98 01/19/17 12:51 106 18 122/73 (89) 98 01/19/17 12:33 98.7 116 20 118/75 (89) 98 01/19/17 09:31 98 01/19/17 07:20 97.4 90 16 121/82 (95) 98 01/19/17 04:15 97.6 82 16 134/93 (107) 100 01/19/17 00:15 99.2 85 17 133/91 (105) 100 01/18/17 20:15 98.9 85 16 141/97 (112) 95 I/O 01/18/17 01/18/17 01/18/17 01/19/17 01/19/17 01/19/17 07:00 15:00 23:00 07:00 15:00 23:00 Intake Total 480 ml 700 ml 460 ml 0 ml 100 ml Output Total 3 ml 850 ml 250 ml 300 ml Balance 477 ml -150 ml 210 ml -300 ml 100 ml Intake Oral 480 ml 600 ml 360 ml 0 ml IV Total 100 ml 100 ml Other 100 ml Output Urine Total 3 ml 850 ml 250 ml 300 ml # Bowel Movements 0 1 0 Result Diagram: 01/18/17 0545 01/19/17 1031 Objective Remarks GENERAL: Alert, oriented 3, NAD. SKIN: Warm and dry. HEAD: Normocephalic. EYES: No scleral icterus. No injection or drainage. NECK: Supple, trachea midline. No JVD or lymphadenopathy. CARDIOVASCULAR: Regular rate and rhythm without murmurs, gallops, or rubs. RESPIRATORY: Breath sounds equal bilaterally. No accessory muscle use. GASTROINTESTINAL: Abdomen soft, non-tender, nondistended. MUSCULOSKELETAL: No cyanosis, or edema. BACK: Nontender without obvious deformity. No CVA tenderness. Procedures Vas-Cath placed on 01/17/2017 A/P Problem List: (1) Seizure disorder Status: Chronic (2) KVNG (acute kidney injury) ICD Code: N17.9 - Acute kidney failure, unspecified Status: Acute (3) Metabolic acidosis ICD Code: E87.2 - Acidosis Status: Chronic (4) Non-compliance ICD Code: Z91.19 - Patient's noncompliance with other medical treatment and regimen Status: Chronic (5) HIV (human immunodeficiency virus infection) ICD Code: Z21 - Asymptomatic human immunodeficiency virus [HIV] infection status Status: Chronic Assessment and Plan 26-year-old male with a PMH of HIV (Last CD4 451 on 08/09/14), Seizure Disorder, CKD, Lymphoma and Non-Compliance who presented with multiple complaints including headache, abdominal pain, and generalized weakness Abdominal pain: Mild. Epigastric. Lipase and LFTs within normal limits. CT abdomen shows cholelithiasis without cholecystitis, s/p splenectomy, otherwise no acute process. Conginue H2 markell and Magic mouthwash. GI will likely perform EGD on 01/19/2017. Seizure Disorder: Chronic. Reported "mini seizures" as off medications, seen in ER on 12/24/16 for similar complaints, however LEFT AMA. No seizure activity during admission. Seizure Precautions, resumed home Keppra. Ativan prn if needed. CT Head w/ no acute findings. End stage renal disease - Patient is currently receiving hemodialysis using Vas-Cath. - Discussed with Dr. Solis who will arrange a polymer tester to discuss with patient/family regarding different dialysis options. - Patient may benefit from peritoneal dialysis instead of HD. - He will likely need a PermaCath prior to discharge. HIV: Last CD4 451 on 08/09/14. Reports compliance w/ HAART, however unsure of recent CD4. Continue home HAART medications. Right hand pain - no swelling, redness noted. Pain on palpation. - Will get X-ray studies for the right hand. Further recommendations based on the x-ray findings. DVT Prophylaxis: Heparin Discharge Plan: If patient decides to go with PD, potential discharge early this week. Mehreen Branch DO Jan 19, 2017 17:12
[2017-01-19] MEDS: EPOETIN ALFA 10,000 UNITS/ML VIAL IV PUSH PRN (19:38)
[2017-01-19] MEDS: GENTAMICIN SULFATE (DIALYSIS USE ONLY) 20 MG/2 ML VIAL OTHER PRN (19:38)
[2017-01-19] MEDS: FAMOTIDINE 20 MG TAB PO SCH (20:46)
--- NOTE | 2017-01-19 22:14 | RADRPT ---
EXAM DATE/TIME: 01/19/2017 21:12 [facility] COMPARISON: No previous studies available for comparison. INDICATIONS : Right hand pain. MEDICAL HISTORY : Lymphoma. HIV. SURGICAL HISTORY : Splenectomy. Bilateral leg amputations. Left arm amputation. ENCOUNTER: Initial ACUITY: 1 week PAIN SCORE: 5/10 LOCATION: Right hand. FINDINGS: The brittny of the second through fifth fingers are amputated or eroded. This appears nonacute. The linda d is otherwise unremarkable. CONCLUSION: No acute findings Torito Barajas MD on January 19, 2017 at 22:10 Board Certified Radiologist. This report was verified electronically.
[2017-01-19] MEDS ORDERED: INSULIN HUMAN REGULAR 1,000 UNITS/10 ML VIAL SQ PRN (23:00)
[2017-01-19] MEDS ORDERED: CHLORHEXIDINE GLUCONATE 2 % 1 PACK (2 CLOTHS) TOPICAL PRN (23:00)
[2017-01-19] MEDS ORDERED: LACTATED RINGER'S 1000 ML IV PRN (23:00)
[2017-01-19] MEDS ORDERED: POVIDONE IODINE 5% (ANTISEPSIS KIT) 4 APPLICATIONS EACH NARE PRN (23:00)
[2017-01-20] VITALS (7 sets, daily range): BP systolic 128–152; BP diastolic 76–90; PULSE 93–103; RESP 16–20; TEMP 97.2–99; O2SAT 98–99
[2017-01-20] MEDS: ACETAMINOPHEN/HYDROcodone 325 MG/10 MG TAB PO PRN ×2 (00:42→07:49)
[2017-01-20] MEDS: RITONAVIR 100 MG TAB PO SCH ×2 (07:56→20:09)
[2017-01-20] MEDS: FOSAMPRENAVIR CALCIUM PO SCH ×2 (07:56→20:09)
[2017-01-20] MEDS: CALCIUM CARBONATE 500 MG CHEWABLE TAB CHEW SCH ×2 (07:57→20:09)
[2017-01-20] MEDS: levETIRAcetam 250 MG TAB PO SCH ×2 (07:57→20:09)
[2017-01-20] MEDS: ABACAVIR SULFATE 300 MG TAB PO SCH ×2 (07:57→20:09)
[2017-01-20] MEDS: DOCUSATE SODIUM 50 MG/SENNA 8.6 MG TAB PO SCH ×2 (07:57→20:09)
[2017-01-20] MEDS: HEPARIN SODIUM - SQ 10,000 UNITS/ML VIAL SQ SCH ×2 (08:00→20:12)
[2017-01-20] MEDS: SODIUM CHLORIDE 0.9% FLUSH 10 ML FLUSH IV FLUSH SCH ×2 (09:00→20:13)
[2017-01-20] MEDS: NYSTAT/DIPHENHY/LIDO MOUTHWASH (Adult) 120ML SWISH-SWAL SCH ×3 (09:00→20:09)
--- NOTE | 2017-01-20 12:08 | HHI.GIFU ---
Subjective Remarks Colonoscopy with snare polypectomy. 1cm polyp in the ascending colon. Removed with mild cautery. Will need to be off anticoagulants for 5-7 days. Objective Vitals I&O Vital Signs Date Time Temp Pulse Resp B/P (MAP) Pulse Ox O2 Delivery O2 Flow Rate FiO2 01/20/17 08:00 97.2 93 20 128/88 (101) 98 01/20/17 00:44 98 01/20/17 00:00 99.0 103 16 152/90 (110) 99 01/19/17 20:00 98.9 102 16 135/95 (108) 98 01/19/17 17:57 98 21 01/19/17 14:57 97.4 97 18 123/89 (100) 98 01/19/17 13:18 113 18 125/74 (91) 98 01/19/17 12:51 106 18 122/73 (89) 98 01/19/17 12:33 98.7 116 20 118/75 (89) 98 I/O 01/19/17 01/19/17 01/19/17 01/20/17 01/20/17 01/20/17 07:00 15:00 23:00 07:00 15:00 23:00 Intake Total 0 ml 100 ml 480 ml 560 ml Output Total 300 ml 900 ml Balance -300 ml 100 ml -420 ml 560 ml Intake Oral 0 ml 0 ml 480 ml 560 ml Other 100 ml Output Urine Total 300 ml 400 ml Hemodialysis 500 ml # Voids 2 2 2 3 # Bowel Movements 0 0 1 3 Physical Exam HEENT: Normocephalic; atraumatic. NECK: Neck is supple. CHEST: CTA CARDIAC: RRR with no murmur gallop or rubs. ABDOMEN: Soft, nondistended, nontender; no hepatosplenomegaly; bowel sounds are present in all four quadrants. EXTREMITIES: No clubbing, cyanosis, or edema. Three limbs amputated. Well healed. Two feet, one hand. SKIN: Normal; no rash; no jaundice. SCOURING TRAIN OPERATOR CHIEF: No focal deficits; alert and oriented times three. Poor historian. Assessment and Plan Plan ASSESSMENT: - Abdominal pain. C/O 2 day hx of epigastric, mid abdominal pain described as a dull ache whenever he coughs or moves. No relation to food intake. Appetite good. Denies n/v, heartburn, reflux, melena, hematochezia. Did have loose stool a few days ago, but states it resolved and he is no longer having. CT scan abdomen and pelvis (01/16/17)---> Cholelithiasis without cholecystitis, surgical absence of the spleen, otherwise unremarkable. ? Musculoskeletal. - Anemia with drop in hgb 11.4---> 8.5/27.2. HH today 9.5/29.7. He is not having any obvious active bleeding. This is likely multifactorial, with at least some component related to his acute renal failure. Iron 35, Ferritin 494. Hemoccult stool. Plan for EGD Thursday. - ARF on CKD with electrolyte abnormalities. S/P Vascath placement. Nephrology following. On HD. - HIV, Seizure d/o, hx lymphoma (14 years ago per patient), PVD per attending. PLAN: - regular diet - no anticoagulation for 5-7 days if possible. - Monitor HH, transfuse as necessary - Supportive care Jose Parada MD Jan 20, 2017 12:08
[2017-01-20] MEDS ORDERED: LIDOCAINE HCL 1% PF 5 ML AMPULE OTHER ONE (14:19)
[2017-01-20] MEDS ORDERED: PROPOFOL 200 MG/20 ML AMP IV ONE (14:19)
--- NOTE | 2017-01-20 17:16 | HHI.PR ---
Subjective Remarks Follow-up for ESRD. Patient is doing well. No acute concerns. Hand pain is better and able to move hand very well. Aunt is at bedside. They have decided to go with peritoneal dialysis. Objective Vitals Vital Signs Date Time Temp Pulse Resp B/P (MAP) Pulse Ox O2 Delivery O2 Flow Rate FiO2 01/20/17 16:00 97.7 100 17 135/76 (95) 98 01/20/17 12:20 97.7 88 18 101/68 (79) 98 01/20/17 12:00 97.2 93 20 128/88 (101) 98 01/20/17 08:00 97.2 93 20 128/88 (101) 98 01/20/17 00:44 98 01/20/17 00:00 99.0 103 16 152/90 (110) 99 01/19/17 20:00 98.9 102 16 135/95 (108) 98 01/19/17 17:57 98 21 I/O 01/19/17 01/19/17 01/19/17 01/20/17 01/20/17 01/20/17 07:00 15:00 23:00 07:00 15:00 23:00 Intake Total 0 ml 100 ml 480 ml 560 ml 50 ml Output Total 300 ml 900 ml Balance -300 ml 100 ml -420 ml 560 ml 50 ml Intake Oral 0 ml 0 ml 480 ml 560 ml Other 100 ml 50 ml Output Urine Total 300 ml 400 ml Hemodialysis 500 ml # Voids 2 2 2 7 # Bowel Movements 0 0 1 3 Result Diagram: 01/18/17 0545 01/19/17 1031 Objective Remarks GENERAL: Alert, oriented 3, NAD. SKIN: Warm and dry. HEAD: Normocephalic. EYES: No scleral icterus. No injection or drainage. NECK: Supple, trachea midline. No JVD or lymphadenopathy. CARDIOVASCULAR: Regular rate and rhythm without murmurs, gallops, or rubs. RESPIRATORY: Breath sounds equal bilaterally. No accessory muscle use. GASTROINTESTINAL: Abdomen soft, non-tender, nondistended. MUSCULOSKELETAL: No cyanosis, or edema. BACK: Nontender without obvious deformity. No CVA tenderness. Procedures Vas-Cath placed on 01/17/2017 A/P Problem List: (1) Seizure disorder Status: Chronic (2) KVNG (acute kidney injury) ICD Code: N17.9 - Acute kidney failure, unspecified Status: Acute (3) Metabolic acidosis ICD Code: E87.2 - Acidosis Status: Chronic (4) Non-compliance ICD Code: Z91.19 - Patient's noncompliance with other medical treatment and regimen Status: Chronic (5) HIV (human immunodeficiency virus infection) ICD Code: Z21 - Asymptomatic human immunodeficiency virus [HIV] infection status Status: Chronic Assessment and Plan 26-year-old male with a PMH of HIV (Last CD4 451 on 08/09/14), Seizure Disorder, CKD, Lymphoma and Non-Compliance who presented with multiple complaints including headache, abdominal pain, and generalized weakness Abdominal pain: Mild. Epigastric. Lipase and LFTs within normal limits. CT abdomen shows cholelithiasis without cholecystitis, s/p splenectomy, otherwise no acute process. Conginue H2 markell and Magic mouthwash. GI will likely perform EGD on 01/19/2017. Seizure Disorder: Chronic. Reported "mini seizures" as off medications, seen in ER on 12/24/16 for similar complaints, however LEFT AMA. No seizure activity during admission. Seizure Precautions, resumed home Keppra. Ativan prn if needed. CT Head w/ no acute findings. End stage renal disease - Patient is currently receiving hemodialysis using Vas-Cath. - Patient would like to proceed with PD. Will discuss with Dr. Solis regarding next steps. - He will likely need a PermaCath prior to discharge. HIV: Last CD4 451 on 08/09/14. Reports compliance w/ HAART, however unsure of recent CD4. Continue home HAART medications. Right hand pain - improved. Images unremarkable. DVT Prophylaxis: Heparin Mehreen Branch DO Jan 20, 2017 17:16
--- NOTE | 2017-01-20 19:26 | HHI.NPPN ---
Subjective History of Present Illness 26-year-old male known to me from his last visit when he was admitted 8 months ago. He has past medical history, history of HIV, Lymphoma, Peripheral vascular disease, Seizure disorder,Chronic kidney disease, Advanced renal failure. He came to the hospital with abdominal pain and generalized weakness. Additional Remarks Patient is alert, feeling better, no vomiting, abd. pain is better. Review of Systems General Constitutional: Fatigue Cardiovascular Cardiac: HERMAN Gastrointestinal Gastrointestinal: Abdominal Pain, Nausea & Vomiting Objective Data Data 01/20/17 01/21/17 19:00 07:00 Intake Total 50 ml Balance 50 ml Other 50 ml # Voids 7 Vital Signs Date Time Temp Pulse Resp B/P (MAP) Pulse Ox O2 Delivery O2 Flow Rate FiO2 01/20/17 17:21 98 21 01/20/17 16:00 97.7 100 17 135/76 (95) 98 01/20/17 12:20 97.7 88 18 101/68 (79) 98 01/20/17 12:00 97.2 93 20 128/88 (101) 98 01/20/17 08:00 97.2 93 20 128/88 (101) 98 01/20/17 00:44 98 01/20/17 00:00 99.0 103 16 152/90 (110) 99 01/19/17 20:00 98.9 102 16 135/95 (108) 98 -: 01/18/17 0545 01/19/17 1031 Physical Exam General Appearance: No Acute Distress, Comfortable Eyes Eye Exam: Pupils Equal Pulmonary Resp Exam: Clear Bilaterally, Breath Sounds Equal, No Distress Cardiology CV Exam: Regular, Normal Sinus Rhythm Gastrointestinal/Abdomen GI Exam: Soft, Non-Tender, Bowel Sounds Present Extremeties Extremeties Remarks Bilateral BKA. Neurologic Neuro Exam: Alert, Awake, Oriented Psychiatric Psych Exam: Appropriate Responses Assessment/Plan Assessment Summary: Anemia of CKD, CKD Stage V, End Stage Renal Disease Electrolyte Assessment: Hypocalcemia, Hypokalemia Problem List: (1) Stage 5 chronic kidney disease ICD Codes: N18.5 - Chronic kidney disease, stage 5 (2) Hypertension Status: Chronic (3) Anemia Status: Chronic (4) Human immunodeficiency virus (HIV) positive Status: Chronic (5) Nausea ICD Codes: R11.0 - Nausea Status: Resolved (6) Seizure disorder Status: Chronic Plan Patient has Vascath and started on HD. Tolerated well and feeling better. calcium is better. I discuss with him about PD and HD,. 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 PD nurse discussed with his Aunt and patient. They agree to go for PD. Get PermCath and PD Catheter. Out patient HD arrangement. GI work up noted, follow Hgb. Levi Solis MD Jan 20, 2017 19:26
[2017-01-20] MEDS: FAMOTIDINE 20 MG TAB PO SCH (20:13)
[2017-01-21] VITALS: BP 139/89; PULSE 117; RESP 16; TEMP 99.2; O2SAT 98
[2017-01-21 08:00] VITALS: BP 126/79; PULSE 88; RESP 16; TEMP 97; O2SAT 99
[2017-01-21] MEDS: HEPARIN SODIUM - SQ 10,000 UNITS/ML VIAL SQ SCH (09:00)
[2017-01-21] MEDS: CALCIUM CARBONATE 500 MG CHEWABLE TAB CHEW SCH ×2 (09:00→20:44)
[2017-01-21] MEDS: FOSAMPRENAVIR CALCIUM PO SCH ×2 (09:19→20:44)
[2017-01-21] MEDS: ABACAVIR SULFATE 300 MG TAB PO SCH ×2 (09:19→20:44)
[2017-01-21] MEDS: RITONAVIR 100 MG TAB PO SCH ×2 (09:20→20:44)
[2017-01-21] MEDS: SODIUM CHLORIDE 0.9% FLUSH 10 ML FLUSH IV FLUSH SCH ×2 (09:20→20:45)
[2017-01-21] MEDS: levETIRAcetam 250 MG TAB PO SCH ×2 (09:20→20:44)
[2017-01-21] MEDS: DOCUSATE SODIUM 50 MG/SENNA 8.6 MG TAB PO SCH ×2 (09:20→20:44)
[2017-01-21] MEDS: NYSTAT/DIPHENHY/LIDO MOUTHWASH (Adult) 120ML SWISH-SWAL SCH ×4 (09:23→20:45)
--- NOTE | 2017-01-21 09:38 | HHI.PR ---
Subjective Remarks The patient is in bed, appears sleepy. Denies fever or chills. No cough. No abdominal pain. He is nothing by mouth plan for PEG placement today Objective Vitals Vital Signs Date Time Temp Pulse Resp B/P (MAP) Pulse Ox O2 Delivery O2 Flow Rate FiO2 01/21/17 00:00 99.2 117 16 139/89 (106) 98 01/20/17 18:55 99.0 102 16 136/86 (103) 99 01/20/17 17:21 98 21 01/20/17 16:00 97.7 100 17 135/76 (95) 98 01/20/17 12:20 97.7 88 18 101/68 (79) 98 01/20/17 12:00 97.2 93 20 128/88 (101) 98 I/O 01/20/17 01/20/17 01/20/17 01/21/17 01/21/17 01/21/17 07:00 15:00 23:00 07:00 15:00 23:00 Intake Total 560 ml 50 ml 480 ml 480 ml Balance 560 ml 50 ml 480 ml 480 ml Intake Oral 560 ml 480 ml 480 ml Other 50 ml # Voids 2 7 3 3 # Bowel Movements 3 0 Result Diagram: 01/18/17 0545 01/19/17 1031 Imaging Last Impressions Hand X-Ray 01/19/17 0000 Signed Impressions: Service Date/Time: Thursday, January 19, 2017 21:12 - CONCLUSION: No acute findings Torito Barajas MD Catheter Placement X-Ray 01/17/17 0000 Signed Impressions: Service Date/Time: Tuesday, January 17, 2017 12:35 - CONCLUSION: Uncomplicated line placement as above. Colton Friend Jr., MD Chest X-Ray 01/16/172119 Signed Impressions: Service Date/Time: Monday, January 16, 2017 21:37 - CONCLUSION: No acute disease. No significant change has occurred. Gilmar Benton MD Head CT 01/16/17 0000 Signed Impressions: Service Date/Time: Monday, January 16, 2017 21:27 - CONCLUSION: Normal examination. No significant change has occurred. Gilmar Benton MD Abdomen/Pelvis CT 01/16/17 0000 Signed Impressions: Service Date/Time: Monday, January 16, 2017 21:31 - CONCLUSION: Cholelithiasis without cholecystitis. Surgical absence the spleen. Otherwise negative abdomen Gilmar Benton MD Objective Remarks GENERAL: Alert, oriented 3, NAD. CARDIOVASCULAR: Regular rate and rhythm without murmurs, gallops, or rubs. RESPIRATORY: Breath sounds equal bilaterally. No accessory muscle use. GASTROINTESTINAL: Abdomen soft, non-tender, nondistended. MUSCULOSKELETAL: No cyanosis, or edema. BACK: Nontender without obvious deformity. No CVA tenderness. Procedures Vas-Cath placed on 01/17/2017 A/P Problem List: (1) Seizure disorder Status: Chronic (2) KVNG (acute kidney injury) ICD Code: N17.9 - Acute kidney failure, unspecified Status: Acute (3) Metabolic acidosis ICD Code: E87.2 - Acidosis Status: Chronic (4) Non-compliance ICD Code: Z91.19 - Patient's noncompliance with other medical treatment and regimen Status: Chronic (5) HIV (human immunodeficiency virus infection) ICD Code: Z21 - Asymptomatic human immunodeficiency virus [HIV] infection status Status: Chronic Assessment and Plan 26-year-old male with a PMH of HIV (Last CD4 451 on 08/09/14), Seizure Disorder, CKD, Lymphoma and Non-Compliance who presented with multiple complaints including headache, abdominal pain, and generalized weakness Abdominal pain: Mild. Epigastric. Lipase and LFTs within normal limits. CT abdomen shows cholelithiasis without cholecystitis, s/p splenectomy, otherwise no acute process. Conginue H2 markell and Magic mouthwash. GI will likely perform EGD on 01/19/2017. Seizure Disorder: Chronic. Reported "mini seizures" as off medications, seen in ER on 12/24/16 for similar complaints, however LEFT AMA. No seizure activity during admission. Seizure Precautions, resumed home Keppra. Ativan prn if needed. CT Head w/ no acute findings. End stage renal disease - Patient is currently receiving hemodialysis using Vas-Cath. - Patient would like to proceed with PD. Will discuss with Dr. Solis regarding next steps. - Plan for PD placement 01/21 per nephro HIV: Last CD4 451 on 08/09/14. Reports compliance w/ HAART, however unsure of recent CD4. Continue home HAART medications. Right hand pain - improved. Images unremarkable. DVT Prophylaxis: Heparin Discussed with the patient, nurse Yohana Mac MD Jan 21, 2017 09:38
--- NOTE | 2017-01-21 10:38 | HHI.FF ---
Face to Face Verification Diagnosis: (1) High anion gap metabolic acidosis (2) Dehydration (3) HTN (hypertension) (4) Headache (5) Anemia (6) Fever (7) Stage 5 chronic kidney disease (8) Human immunodeficiency virus (HIV) positive (9) Hypertension (10) Acute on chronic renal failure Home Health Nursing Order: Medical education Signs/symptoms of disease process Medication education-adverse effect Nursing assessment with vital signs I have seen patient Abhishek Yu on 01/21/17. My clinical findings support the need for the requested home health care services because: Ltd mobility - disease progression I certify that my clinical findings support that this patient is homebound because: Post-op weakness Yohana Mac MD Jan 21, 2017 10:37
--- NOTE | 2017-01-21 10:38 | HHI.DS ---
Discharge Summary Admission Date Jan 17, 2017 at 08:18 Admitting Diagnosis anion gap metabolic acidosis, ketoacidosis, renal insufficiency (1) Seizure disorder Status: Chronic (2) KVNG (acute kidney injury) ICD Code: N17.9 - Acute kidney failure, unspecified Status: Acute (3) Metabolic acidosis ICD Code: E87.2 - Acidosis Status: Chronic (4) Non-compliance ICD Code: Z91.19 - Patient's noncompliance with other medical treatment and regimen Status: Chronic (5) HIV (human immunodeficiency virus infection) ICD Code: Z21 - Asymptomatic human immunodeficiency virus [HIV] infection status Status: Chronic Procedures Vas-Cath placed on 01/17/2017 Brief History - From Admission This is a 26-year-old male with a PMH of HIV (Last CD4 451 on 08/09/14), Seizure Disorder, CKD, Lymphoma and Non-Compliance who presented to the ER w/ c/o generalized malaise in addition to "minor seizures" because ran out of his medications. Seen in ER on 12/24/16 for similar complaints, however LEFT AMA. Returns now w/ recurrent symptoms. Denies fever, chills or sick contacts. Does not know CD4 count, reports compliance w/ HAART. On arrival, BP 147/94, HR 120, O2 sat 98% on RA, Afebrile. CBC at baseline. Chemistry with anion gap acidosis, AG 21. Creatinine 7.22, WBC 6.11 on 12/13/16. Lipase 325. CT Head w / no acute findings. CT Abd/Pelvis w/ cholelithiasis, no cholecystitis. CXR w / no acute findings. S/p 1L IVF in ER. CBC/BMP: 01/18/17 0545 01/19/17 1031 Significant Findings Laboratory Tests Test 01/19/17 10:31 Potassium Level 3.2 MEQ/L (3.5-5.1) PE at Discharge GENERAL: Alert, oriented 3, NAD. CARDIOVASCULAR: Regular rate and rhythm without murmurs, gallops, or rubs. RESPIRATORY: Breath sounds equal bilaterally. No accessory muscle use. GASTROINTESTINAL: Abdomen soft, non-tender, nondistended. MUSCULOSKELETAL: No cyanosis, or edema. BACK: Nontender without obvious deformity. No CVA tenderness. Yohana Mac MD Jan 21, 2017 10:38
[2017-01-21] MEDS ORDERED: FAMO20TA2 PO (10:43)
[2017-01-21] MEDS ORDERED: POTASSIUM CHLORIDE 10 MEQ CONTROLLED RELEASE TAB PO ONE (10:45)
[2017-01-21 12:00] VITALS: BP 119/72; PULSE 80; RESP 16; TEMP 96.4; O2SAT 97
[2017-01-21 12:43] LABS: INTERNATIONAL NORMALIZED RATIO 0.9 RATIO; PROTHROMBIN TIME - PATIENT 10.2 SEC (9.8-11.6)
--- NOTE | 2017-01-21 13:03 | HHI.GIFU ---
Subjective Remarks Resting in bed with eyes closed. Does not open eyes when spoken to, but denies nausea, vomiting, abdominal pain. Denies any known blood loss. Objective Vitals I&O Vital Signs Date Time Temp Pulse Resp B/P (MAP) Pulse Ox O2 Delivery O2 Flow Rate FiO2 01/21/17 08:00 97.0 88 16 126/79 (95) 99 01/21/17 00:00 99.2 117 16 139/89 (106) 98 01/20/17 18:55 99.0 102 16 136/86 (103) 99 01/20/17 17:21 98 21 01/20/17 16:00 97.7 100 17 135/76 (95) 98 I/O 01/20/17 01/20/17 01/20/17 01/21/17 01/21/17 01/21/17 07:00 15:00 23:00 07:00 15:00 23:00 Intake Total 560 ml 50 ml 480 ml 480 ml Balance 560 ml 50 ml 480 ml 480 ml Intake Oral 560 ml 480 ml 480 ml Other 50 ml # Voids 2 7 3 3 # Bowel Movements 3 0 Laboratory Laboratory Tests Test 01/21/17 11:44 Prothrombin Time 10.2 Prothromb Time International Ratio 0.9 Activated Partial Thromboplast Time 25.1 Imaging Last Impressions Hand X-Ray 01/19/17 0000 Signed Impressions: Service Date/Time: Thursday, January 19, 2017 21:12 - CONCLUSION: No acute findings Torito Barajas MD Catheter Placement X-Ray 01/17/17 0000 Signed Impressions: Service Date/Time: Tuesday, January 17, 2017 12:35 - CONCLUSION: Uncomplicated line placement as above. Colton Friend Jr., MD Chest X-Ray 01/16/172119 Signed Impressions: Service Date/Time: Monday, January 16, 2017 21:37 - CONCLUSION: No acute disease. No significant change has occurred. Gilmar Benton MD Head CT 01/16/17 0000 Signed Impressions: Service Date/Time: Monday, January 16, 2017 21:27 - CONCLUSION: Normal examination. No significant change has occurred. Gilmar Benton MD Abdomen/Pelvis CT 01/16/17 0000 Signed Impressions: Service Date/Time: Monday, January 16, 2017 21:31 - CONCLUSION: Cholelithiasis without cholecystitis. Surgical absence the spleen. Otherwise negative abdomen Gilmar Benton MD Physical Exam HEENT: Normocephalic; atraumatic. NECK: Neck is supple. CHEST: CTA CARDIAC: RRR with no murmur gallop or rubs. ABDOMEN: Soft, nondistended, nontender; no hepatosplenomegaly; bowel sounds are present in all four quadrants. EXTREMITIES: No clubbing, cyanosis, or edema. Bilateral BKA, Left below elbow amputation SKIN: Normal; no rash; no jaundice. 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 Poor historian. Assessment and Plan Plan ASSESSMENT: - Abdominal pain. C/O 2 day hx of epigastric, mid abdominal pain described as a dull ache whenever he coughs or moves. No relation to food intake. Appetite good. Denies n/v, heartburn, reflux, melena, hematochezia. Did have loose stool a few days ago, but states it resolved and he is no longer having. CT scan abdomen and pelvis (01/16/17)---> Cholelithiasis without cholecystitis, surgical absence of the spleen, otherwise unremarkable. ? Musculoskeletal. RESOLVED. - Anemia with drop in hgb. He is not having any obvious active bleeding. This is likely multifactorial, with at least some component related to his acute renal failure. Iron 35, Ferritin 494. Hemoccult stool. S/P EGD (01/19/17)--> EGD showed only mild gastritis. Biopsy taken for histology. Rule out H Pylori. S/P Colonoscopy (01/20/17)---> with snare polypectomy. 1cm polyp in the ascending colon. Removed with mild cautery. Pathology pending. Will need to be off anticoagulants for 5-7 days. - ARF on CKD with electrolyte abnormalities. S/P Vascath placement. Nephrology following. On HD. - HIV, Seizure d/o, hx lymphoma (14 years ago per patient), PVD per attending. PLAN: - Renal diet - Await pathology - PPI - No anticoagulation for 5-7 days if possible. - Monitor HH, transfuse as necessary - Supportive care - FU KRISTIAN 2 weeks - GI will sign off, please reconsult as needed - Pt seen and examined by Dr. Parada and myself and this note is written on his behalf Demetria Saucedo Jan 21, 2017 13:03
[2017-01-21] MEDS ORDERED: VANCOMYCIN INJ 1,000 MG in SODIUM CHLOR 0.9% 250 ML INJ 250 ML IV SCH (13:15)
--- NOTE | 2017-01-21 17:07 | HHI.NPPN ---
Subjective History of Present Illness 26-year-old male known to me from his last visit when he was admitted 8 months ago. He has past medical history, history of HIV, Lymphoma, Peripheral vascular disease, Seizure disorder,Chronic kidney disease, Advanced renal failure. He came to the hospital with abdominal pain and generalized weakness. Additional Remarks Patient is alert, no SOB, seen in AM. Review of Systems General Constitutional: Fatigue Cardiovascular Cardiac: HERMAN Gastrointestinal Gastrointestinal: Abdominal Pain, Nausea & Vomiting Objective Data Data Vital Signs Date Time Temp Pulse Resp B/P (MAP) Pulse Ox O2 Delivery O2 Flow Rate FiO2 01/21/17 12:00 96.4 80 16 119/72 (88) 97 01/21/17 08:00 97.0 88 16 126/79 (95) 99 01/21/17 00:00 99.2 117 16 139/89 (106) 98 01/20/17 18:55 99.0 102 16 136/86 (103) 99 01/20/17 17:21 98 21 -: 01/18/17 0545 01/19/17 1031 Physical Exam General Appearance: No Acute Distress, Comfortable Eyes Eye Exam: Pupils Equal Pulmonary Resp Exam: Clear Bilaterally, Breath Sounds Equal, No Distress Cardiology CV Exam: Regular, Normal Sinus Rhythm Gastrointestinal/Abdomen GI Exam: Soft, Non-Tender, Bowel Sounds Present Extremeties Extremeties Remarks Bilateral BKA. Neurologic Neuro Exam: Alert, Awake, Oriented Psychiatric Psych Exam: Appropriate Responses Assessment/Plan Assessment Summary: Anemia of CKD, CKD Stage V, End Stage Renal Disease Electrolyte Assessment: Hypocalcemia, Hypokalemia Problem List: (1) Stage 5 chronic kidney disease ICD Codes: N18.5 - Chronic kidney disease, stage 5 (2) Hypertension Status: Chronic (3) Anemia Status: Chronic (4) Human immunodeficiency virus (HIV) positive Status: Chronic (5) Nausea ICD Codes: R11.0 - Nausea Status: Resolved (6) Seizure disorder Status: Chronic Plan Patient has Vascath and started on HD. Tolerated well and feeling better. calcium is better. I discuss with him about PD and HD,. 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 PD nurse discussed with his Aunt and patient. They agree to go for PD. Get PermCath and PD Catheter. Out patient HD arrangement. GI work up noted, follow Hgb. HD today and to get PD Catheter. Levi Solis MD Jan 21, 2017 17:07
[2017-01-21 19:45] VITALS: BP 121/82; PULSE 101; RESP 17; TEMP 97.8; O2SAT 98
--- NOTE | 2017-01-21 21:28 | MB ---
cc: JASPER SUTHERLAND MD DATE OF CONSULTATION 01/21/2017 REASON FOR CONSULTATION Peritoneal dialysis catheter. HISTORY OF PRESENT ILLNESS The patient is a 26-year-old male with multiple medical issues including HIV and seizure disorder, chronic kidney disease, lymphoma, poor compliance. The patient initially presented to the emergency department with generalized malaise, seizure activity due to running out of his medications. The patient is a very poor historian and not very compliant with exam. Therefore difficulty to obtain full history, however, appears that the patient has been in the hospital on several different occasions. The last time he left AMA. He evidently was not having any fevers or chills. Does have a history of HIV compliance with HAART therapy. Vitals appear to be stable on admission but he did have anion gap metabolic acidosis, a creatinine of 7.2. CT chest, abdomen and pelvis, otherwise normal. CT scan of the head normal. PAST MEDICAL HISTORY 1. HIV. 2. Seizure disorder. 3. Chronic kidney disease. 4. Lymphoma. PAST SURGICAL HISTORY 1. Splenectomy. 2. Bilateral BKA. 3. Left upper extremity amputation. ALLERGIES AMOXICILLIN. PENICILLIN. FAMILY HISTORY Denies diabetes, hypertension. SOCIAL HISTORY Occasional EtOH. Denies smoking. Positive THC marijuana and positive flakka. MEDICATIONS See EMR. REVIEW OF SYSTEMS GENERAL: Complains of malaise. HEENT: Denies eye pain, ear pain. NECK: Denies swelling or pain. LUNGS: Denies cough or wheeze. HEART: Denies palpitation or chest pain. ABDOMEN: Denies abdominal pain or nausea. EXTREMITIES: Bilateral amputee. Left upper extremity amputee. NEUROLOGIC: Moving extremities. GCS 15. PSYCHIATRIC: Flat affect. PHYSICAL EXAMINATION GENERAL: The patient no acute distress. VITAL SIGNS: Temperature 98.6, pulse 115, respiration 15, blood pressure 147/94, saturation 98%. HEENT: Pupils equal, round and reactive. NECK: Supple. Trachea midline. dialysis cath in place. LUNGS: Bilateral expansion. Clear. HEART: S1-S2. Regular. ABDOMEN: Well-healed surgical scar. Soft, nontender. EXTREMITIES: Bilateral BKA and left upper extremity amputation. Healed scars. PSYCHIATRIC: Flat affect. NEUROLOGIC: GCS 15. LABORATORY AND DIAGNOSTIC DATA 01/18/2017 WBC 9.5, hemoglobin 9.5, hematocrit 29.7, platelets 255. Sodium 135, potassium 3.2, chloride 99, BUN 31, creatinine 4.4, corrected calcium 7.9. INR 0.9. IMAGING Imaging reviewed by myself, CT abdomen and pelvis showing cholelithiasis. No abnormality. CT head negative. Chest x-ray negative. ASSESSMENT The patient a 18-year-old male multiple medical issues currently on hemodialysis Thursday, Thursday and Thursday. Discussion for a possible peritoneal dialysis catheter. PLAN After full workup, the patient with above-named issues including stage IV chronic kidney disease, several medical issues requesting a peritoneal dialysis catheter. Discussed with the patient would likely be a candidate for laparoscopic peritoneal dialysis catheter. Possibility if the patient has multiple scarring intra-abdominal adhesions might not be feasible. However, we will attempt to do this while the patient is in this hospital stay. Discussed with the patient risks, benefits and alternatives. Agrees and would like to proceed with intervention. MD CATHI Pruitt/REMBERTO /5:30 PM /9:04 PM MTDD
[2017-01-22] VITALS (10 sets, daily range): BP systolic 100–122; BP diastolic 61–86; PULSE 87–108; RESP 16–20; TEMP 97.7–99.2; O2SAT 91–100
[2017-01-22] MEDS ORDERED: BUPIVACAINE/EPINEPHRINE 0.25% 50 ML VIAL ONE (08:12)
[2017-01-22] MEDS: FOSAMPRENAVIR CALCIUM PO SCH ×2 (08:22→21:09)
[2017-01-22] MEDS: RITONAVIR 100 MG TAB PO SCH ×2 (08:22→21:09)
[2017-01-22] MEDS: ABACAVIR SULFATE 300 MG TAB PO SCH ×2 (08:22→21:09)
[2017-01-22] MEDS: levETIRAcetam 250 MG TAB PO SCH ×2 (08:22→21:09)
[2017-01-22] MEDS: SODIUM CHLORIDE 0.9% FLUSH 10 ML FLUSH IV FLUSH SCH ×2 (08:22→21:12)
--- NOTE | 2017-01-22 08:24 | HHI.PR ---
Subjective Remarks Patient in nad s/p PD placement, seen in IR. Denies chest pain, sob. He complaints of some pain in his abdomen at the surgical site. No n/v/d/c. Objective Vitals Vital Signs Date Time Temp Pulse Resp B/P (MAP) Pulse Ox O2 Delivery O2 Flow Rate FiO2 01/22/17 04:00 99.2 95 20 122/78 (93) 96 01/22/17 00:00 99.2 100 18 108/76 (87) 96 01/21/17 19:45 97.8 101 17 121/82 (95) 98 01/21/17 12:00 96.4 80 16 119/72 (88) 97 I/O 01/21/17 01/21/17 01/21/17 01/22/17 01/22/17 01/22/17 07:00 15:00 23:00 07:00 15:00 23:00 Intake Total 480 ml Output Total 1000 ml Balance 480 ml -1000 ml Intake Oral 480 ml Hemodialysis 1000 ml # Voids 3 1 # Bowel Movements 0 2 Result Diagram: 01/18/17 0545 01/19/17 1031 Imaging Last Impressions Hand X-Ray 01/19/17 0000 Signed Impressions: Service Date/Time: Thursday, January 19, 2017 21:12 - CONCLUSION: No acute findings Torito Barajas MD Catheter Placement X-Ray 01/17/17 0000 Signed Impressions: Service Date/Time: Tuesday, January 17, 2017 12:35 - CONCLUSION: Uncomplicated line placement as above. Colton Friend Jr., MD Chest X-Ray 01/16/170 Signed Impressions: Service Date/Time: Monday, January 16, 2017 21:37 - CONCLUSION: No acute disease. No significant change has occurred. Gilmar Benton MD Head CT 01/16/17 0000 Signed Impressions: Service Date/Time: Monday, January 16, 2017 21:27 - CONCLUSION: Normal examination. No significant change has occurred. Gilmar Benton MD Abdomen/Pelvis CT 01/16/17 0000 Signed Impressions: Service Date/Time: Monday, January 16, 2017 21:31 - CONCLUSION: Cholelithiasis without cholecystitis. Surgical absence the spleen. Otherwise negative abdomen Gilmar Benton MD Objective Remarks GENERAL: Alert, oriented 3, NAD. CARDIOVASCULAR: Regular rate and rhythm without murmurs, gallops, or rubs. RESPIRATORY: Breath sounds equal bilaterally. No accessory muscle use. GASTROINTESTINAL: PD in place, c/d/i. Abdomen soft, non-tender, nondistended. MUSCULOSKELETAL: No cyanosis, or edema. BACK: Nontender without obvious deformity. No CVA tenderness. Procedures Vas-Cath placed on 01/17/2017 A/P Problem List: (1) Seizure disorder Status: Chronic (2) KVNG (acute kidney injury) ICD Code: N17.9 - Acute kidney failure, unspecified Status: Acute (3) Metabolic acidosis ICD Code: E87.2 - Acidosis Status: Chronic (4) Non-compliance ICD Code: Z91.19 - Patient's noncompliance with other medical treatment and regimen Status: Chronic (5) HIV (human immunodeficiency virus infection) ICD Code: Z21 - Asymptomatic human immunodeficiency virus [HIV] infection status Status: Chronic Assessment and Plan 26-year-old male with a PMH of HIV (Last CD4 451 on 08/09/14), Seizure Disorder, CKD, Lymphoma and Non-Compliance who presented with multiple complaints including headache, abdominal pain, and generalized weakness Abdominal pain: Mild. Epigastric. Lipase and LFTs within normal limits. CT abdomen shows cholelithiasis without cholecystitis, s/p splenectomy, otherwise no acute process. Conginue H2 markell and Magic mouthwash. GI will likely perform EGD on 01/19/2017. Seizure Disorder: Chronic. Reported "mini seizures" as off medications, seen in ER on 12/24/16 for similar complaints, however LEFT AMA. No seizure activity during admission. Seizure Precautions, resumed home Keppra. Ativan prn if needed. CT Head w/ no acute findings. End stage renal disease - Patient is currently receiving hemodialysis using Vas-Cath. - S/p PD placement by Dr Goins gen surg on 01/22/17. Plan for IR to place vas cath - Plan for PD placement 01/21 per nephro HIV: Last CD4 451 on 08/09/14. Reports compliance w/ HAART, however unsure of recent CD4. Continue home HAART medications. Right hand pain - improved. Images unremarkable. DVT Prophylaxis: Heparin Discussed with the patient, nurse DC plan: DC when arrangements done, and cleared by consultants. Yohana Mac MD Jan 22, 2017 08:24
[2017-01-22 08:28] LABS: AUTOMATED NEUTROPHIL # 4.8 TH/MM3 (1.8-7.7); BASOPHIL % 0.4 % (0.0-2.0); EOSINOPHIL # 0.5 TH/MM3 (0-0.4); EOSINOPHIL % 4.7 % (0.0-4.0); HEMATOCRIT 32.5 % (39.0-51.0); HEMOGLOBIN 10.3 GM/DL (13.0-17.0); LYMPH % 31.1 % (9.0-44.0); LYMPHOCYTE # 3.2 TH/MM3 (1.0-4.8); MEAN CELL VOLUME 78.8 FL (80.0-100.0); MEAN CORPUSCULAR HEMOGLOBIN 24.9 PG (27.0-34.0); MEAN CORPUSCULAR HGB CONC 31.5 % (32.0-36.0); MEAN PLATELET VOLUME 9.6 FL (7.0-11.0); MONO % 17.4 % (0.0-8.0); MONOCYTE # 1.8 TH/MM3 (0-0.9); NEUT % 46.4 % (16.0-70.0); PLATELET COUNT 278 TH/MM3 (150-450); RED BLOOD COUNT 4.13 MIL/MM3 (4.50-5.90); WHITE BLOOD COUNT 10.3 TH/MM3 (4.0-11.0)
[2017-01-22] MEDS: DOCUSATE SODIUM 50 MG/SENNA 8.6 MG TAB PO SCH ×2 (08:29→21:08)
[2017-01-22] MEDS: PANTOPRAZOLE SOD 40 MG DELAYED RELEASE TAB PO SCH (08:29)
[2017-01-22] MEDS: NYSTAT/DIPHENHY/LIDO MOUTHWASH (Adult) 120ML SWISH-SWAL SCH ×4 (08:29→21:11)
[2017-01-22] MEDS: CALCIUM CARBONATE 500 MG CHEWABLE TAB CHEW SCH ×2 (08:29→21:00)
[2017-01-22] MEDS: SODIUM CHLORID 0.9% 500 ML IV PRN (08:40)
[2017-01-22] MEDS ORDERED: HYDROmorphone HCL PF 2 MG/ML VIAL ONE (09:05)
[2017-01-22] MEDS ORDERED: ACETAMINOPHEN 1000 MG/100 ML 100 ML IV ONE (09:05)
[2017-01-22] MEDS ORDERED: CLINDAMYCIN PHOS 600 MG/4 ML VIAL ONE (09:07)
--- NOTE | 2017-01-22 09:14 | HHI.PR ---
Immediate Post Op Note Procedure Date: Jan 22, 2017 Pre Op Diagnosis: ESRD need for PD cath Post Op Diagnosis: same Surgeon: Sen Goins MD Records Coordinator(s): see or sheet Procedure: lap PD cath Findings: good flush good return Complications: none Specimen(s) removed: none Estimated blood loss: 5cc Anesthesia: General Drains: None Patient to: PACU Patient Condition: Good Sen Goins MD Jan 22, 2017 09:14
[2017-01-22 09:22] LABS: CALCIUM 9.2 MG/DL (8.5-10.1); CREATININE 5.23 MG/DL (0.60-1.30)
[2017-01-22 10:47] LABS: BANDS 1 % (0-6); CORRECTED NUCLEATED RBC 27 /100 WBC (0-0); LYMPHOCYTES 39 % (9-44); MONOCYTES 16 % (0-8); NEUTROPHIL # MANUAL DIFF 4.5 TH/MM3 (1.8-7.7); NUCLEATED RED BLOOD CELL 27 (0-0); POLYS (SEG NEUTROPHILS) 43 % (16-70)
[2017-01-22 10:48] LABS: HOWELL-JOLLY BODIES PRESENT (NONE SEEN); TARGET CELLS 2+ (NORMAL)
[2017-01-22] MEDS ORDERED: *ONDANSETRON 4 MG VIAL PERIprocedural Use ONLY ONE (10:49)
[2017-01-22 10:50] LABS: OVALOCYTES 1+ (NORMAL)
[2017-01-22] MEDS ORDERED: *diphenhydrAMINE HCL 50 MG/ML VIAL PERIprocedural Use ONLY ONE (11:21)
[2017-01-22] MEDS: ACETAMINOPHEN/HYDROcodone 325 MG/5 MG TAB PO PRN (11:41)
[2017-01-22] MEDS ORDERED: DO NOT ADM ANY ANTICOAGULANT DRUGS PRN (11:45)
[2017-01-22] MEDS ORDERED: NORC5TAB PO (11:58)
[2017-01-22] MEDS: diphenhydrAMINE HCL 25 MG CAP PO PRN ×2 (11:59→21:44)
[2017-01-22] MEDS ORDERED: PHENYLEPH/NS 1000 MCG/10 ML SYR IV ONE (12:00)
[2017-01-22] MEDS ORDERED: ONDANSETRON HCL 4 MG/2 ML VIAL IV PUSH ONE (12:00)
[2017-01-22] MEDS ORDERED: PROPOFOL 200 MG/20 ML AMP IV ONE (12:00)
[2017-01-22] MEDS ORDERED: LIDOCAINE HCL 1% PF 5 ML AMPULE OTHER ONE (12:00)
[2017-01-22] MEDS ORDERED: ESMOLOL HCL 100 MG/10 ML VIAL IV ONE (12:00)
[2017-01-22] MEDS ORDERED: GLYCOPYRROLATE 1 MG/5 ML SYRINGE IV PUSH ONE (12:00)
[2017-01-22] MEDS ORDERED: NEOSTIGMINE 3 MG/3 ML SYR IV ONE (12:00)
[2017-01-22] MEDS ORDERED: DEXAMETHASONE SOD PHOS 4 MG/ML VIAL IV ONE (12:00)
[2017-01-22] MEDS ORDERED: ROCURONIUM INJ 50 MG/5 ML SYRINGE IV PUSH ONE (12:00)
[2017-01-22] MEDS ORDERED: MIDAZOLAM HCL 2 MG/2 ML VIAL ONE (12:21)
[2017-01-22] MEDS ORDERED: LIDOCAINE 1%/EPINEPHrine 1:100,000 SOLN 20 ML VIAL ONE (12:46)
[2017-01-22] MEDS ORDERED: diphenhydrAMINE HCL 50 MG/ML VIAL ONE (13:17)
--- NOTE | 2017-01-22 13:22 | PD.RAD ---
Post Procedure Progress Note Pre Procedure Diagnosis: (1) Acute renal failure Post Procedure Diagnosis: (1) Acute renal failure Procedure Date: Jan 22, 2017 Supervising Radiologist: Shaquille García Estimated blood loss: 3cc Anesthesia: Local, Conscious Sedation Plan of Activity Patient to Unit: ROPU Patient Condition: Poor Additional Comments: Permcath placed via the right IJ catheter in good position Ok for use Full dictated report to follow See PACS Report for procedural detail/treatment Shaquille García MD Jan 22, 2017 13:22
[2017-01-22] MEDS ORDERED: HEPARIN SODIUM - IV 2,000 UNITS/2 ML VIAL IV FLUSH PRN (13:30)
[2017-01-22] MEDS ORDERED: SODIUM CHLORIDE 0.9% FLUSH 10 ML FLUSH IV FLUSH PRN (13:30)
[2017-01-22] MEDS ORDERED: HEPARIN SODIUM - IV 10,000 UNITS/10 ML VIAL IV ONE (13:44)
--- NOTE | 2017-01-22 16:02 | RADRPT ---
EXAM DATE/TIME: 01/22/2017 12:57 [facility] COMPARISON: TEMP DIALYSIS CATHETER PLCMT W/US, RIGHT, January 17, 2017, 12:35. INDICATIONS : Patient presents with renal insufficiency in need of dialysis catheter placement for treatment. MEDICAL HISTORY : Hx of HIV CKD HTN Seizure Lymphoma SURGICAL HISTORY : Lt arm AMA Bilat BKA Splenectomy ENCOUNTER: Subsequent ACUITY: 4-6 days PAIN SCORE: 5/10 LOCATION: Abdomen FLUORO TIME: 2.0 minutes IMAGE SERIES: 1 SEDATION TIME: 30 minutes SEDATION: 1.) 3 mg midazolam (Versed) IV 2.) 100 mcg fentanyl (Sublimaze) IV 3.) 25mg Benadryl IV Prophylactic antibiotics were administered with appropriate pre-procedure timing. Vancomycin within 2 hours of procedure, Ancef (or alternative) within 1 hour of procedure. DEVICE: 1. 15 [place] dual lumen 19 cm Garcia II Plus catheter PROCEDURE : 1. Dialysis catheter placement. 2. Conscious sedation with continuous EKG and oximetry monitoring. The risks, benefits and alternatives to the procedure were explained and verbal and written consent w as obtained. The site was prepped in sterile fashion. Full sterile technique was used, including ca p, mask, sterile gloves and gown and a large sterile sheet. Hand hygiene and 2% chlorhexidine and/or betadine/alcohol prep was utilized per protocol for cutaneous antisepsis. The skin and subcutaneous tissues were infiltrated with local anesthetic solution. With fluoroscopic guidance a dermatotomy was created using the existing venous access. The catheter w as advanced into position using an air cord peel-away sheath. A subcutaneous tunnel was created in a retrograde fashion the catheter was pulled through the tunnel. The catheter was flushed and assembl ed and locked with heparin. . Conscious sedation was performed with the prescribed dosages and duration as above in the presence of an independent trained radiology nurse to assist in the monitoring of the patient. EKG and oximetry remained stable throughout the procedure. The patient tolerated the procedure well and there were n o complications. The patient was sent to post anesthesia recovery in stable condition. CONCLUSION: Uncomplicated Dialysis catheter placement as above. Shaquille García MD on January 22, 2017 at 15:59 Board Certified Radiologist. This report was verified electronically.
--- NOTE | 2017-01-22 17:21 | HHI.NPPN ---
Subjective History of Present Illness 26-year-old male known to me from his last visit when he was admitted 8 months ago. He has past medical history, history of HIV, Lymphoma, Peripheral vascular disease, Seizure disorder,Chronic kidney disease, Advanced renal failure. He came to the hospital with abdominal pain and generalized weakness. Additional Remarks Patient is alert, no SOB, seen after the surgery, mild abd. discomfort. Review of Systems General Constitutional: Fatigue Cardiovascular Cardiac: HERMAN Gastrointestinal Gastrointestinal: Abdominal Pain, Nausea & Vomiting Objective Data Data 01/22/17 01/23/17 19:00 07:00 Intake Total 100 ml Balance 100 ml Other 100 ml Vital Signs Date Time Temp Pulse Resp B/P (MAP) Pulse Ox O2 Delivery O2 Flow Rate FiO2 01/22/17 15:55 108 18 104/61 (75) 92 01/22/17 15:25 98 16 101/67 (78) 92 01/22/17 14:55 99 18 107/64 (78) 91 01/22/17 14:25 97 16 109/66 (80) 93 01/22/17 13:55 100 18 111/66 (81) 94 01/22/17 13:40 98.1 103 20 110/62 (78) 96 01/22/17 11:15 96 15 101/55 (70) 97 Room Air 01/22/17 11:00 96 16 104/59 (74) 96 Room Air 01/22/17 10:45 100 22 108/59 (75) 99 Room Air 01/22/17 10:30 98.8 101 16 116/70 (85) 100 Room Air 01/22/17 08:00 97.9 93 16 100/75 (83) 100 01/22/17 04:00 99.2 95 20 122/78 (93) 96 01/22/17 00:00 99.2 100 18 108/76 (87) 96 01/21/17 19:45 97.8 101 17 121/82 (95) 98 -: 01/22/17 0702 01/22/17 0707 Physical Exam General Appearance: No Acute Distress, Comfortable Eyes Eye Exam: Pupils Equal Pulmonary Resp Exam: Clear Bilaterally, Breath Sounds Equal, No Distress Cardiology CV Exam: Regular, Normal Sinus Rhythm Gastrointestinal/Abdomen GI Exam: Soft, Non-Tender, Bowel Sounds Present Extremeties Extremeties Remarks Bilateral BKA. Neurologic Neuro Exam: Alert, Awake, Oriented Psychiatric Psych Exam: Appropriate Responses Assessment/Plan Assessment Summary: Anemia of CKD, CKD Stage V, End Stage Renal Disease Electrolyte Assessment: Hypocalcemia, Hypokalemia Problem List: (1) Stage 5 chronic kidney disease ICD Codes: N18.5 - Chronic kidney disease, stage 5 (2) Hypertension Status: Chronic (3) Anemia Status: Chronic (4) Human immunodeficiency virus (HIV) positive Status: Chronic (5) Nausea ICD Codes: R11.0 - Nausea Status: Resolved (6) Seizure disorder Status: Chronic Plan Patient has Vascath and started on HD. Tolerated well and feeling better. calcium is better. I discuss with him about PD and HD,. 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 PD nurse discussed with his Aunt and patient. They agree to go for PD. PD catheter done. HD is due in AM. Levi Solis MD Jan 22, 2017 17:21
[2017-01-22] MEDS: ACETAMINOPHEN/HYDROcodone 325 MG/10 MG TAB PO PRN ×2 (18:46→23:53)
--- NOTE | 2017-01-22 21:15 | MP ---
cc: JASPER GOINS MD DATE OF SURGERY: 01/22/2017. PREOPERATIVE DIAGNOSIS: Chronic kidney disease. Need for peritoneal dialysis catheter. POSTOPERATIVE DIAGNOSES: Chronic kidney disease, need for peritoneal dialysis catheter. OPERATIVE PROCEDURE PERFORMED: Laparoscopic-assisted peritoneal dialysis catheter. SURGEON: Dr. Jasper Goins. SECURITY SYSTEMS INSTALLER: See OR sheet ANESTHESIA: GETA IV FLUIDS: 100 cc. ESTIMATED BLOOD LOSS: 5 cc. DRAINS: None. COMPLICATIONS: None. WOUND CLASSIFICATION: Clean. SPECIMENS: None. INDICATIONS FOR THE PROCEDURE: The patient is a 18-year-old male with multiple medical issues including HIV, lymphoma, end-stage renal disease in need for laparoscopic-assisted TD catheter. The patient is currently on hemodialysis. DESCRIPTION OF THE PROCEDURE IN DETAIL: The patient was taken to the operating room suite and placed in the supine position. He was prepped and draped in the usual sterile fashion after induction with general endotracheal anesthesia. A brief time out was done stating the correct patient, procedure and surgical site and we were all in agreement with this. Attention was first directed to the left lower quadrant where local anesthetic was injected. A stab joyce incision was made and a Visiport 5-mm trocar was used to enter the abdomen safely. The abdomen was insufflated to 50 mm pneumoperitoneum. A second left upper quadrant trocar was placed and previously an incisional scar 5 mm trocar. Next, on examination of the abdomen, no evidence of injuries. The abdomen was explored and preoperative planning an x was placed by the PD nurse in order to direct the placement of the outlet of the catheter. A small incision was made 1.5 cm on the right lateral side of the umbilicus with a 15 blade. Further dissection was done. A 5 mm trocar was placed and skied the peritoneum directed caudad just before the bladder and lateral to this. This was punctured through the peritoneum. A cooled-tip catheter was introduced and placed through the trocar and the trocar was removed. A cuff was placed in the location of the abdominal wall. The catheter was measured to the titanium connector which was cut and spliced between two pieces of the catheter and secured with 3-0 silk ties. The catheter then was tunneled superiorly and the track again was infiltrated with local anesthetic. The [place]-neck portion of the catheter with a Clarke salvage winder was used. The salvage winder was brought out at the previously marked exit site. The cuffs comfortably sat in the subcutaneous tissue. The cysto tubing was then connected to the catheter with one liter of normal saline run through this without obstruction. The bag was then placed to gravity on the floor and 850 cc were obtained with a well functioning catheter. Titanium caps with plastic tips were placed on the catheter. Pictures were taken confirming pigtail placement was adequate. The trocars were removed under direct visualization. The abdomen was desufflated. Virkff-am-ifqad #0 Vicryl was used to the anterior fascia of the subcostal port. Vicryl was done for the subcuticular at all incision sites. 4-0 Monocryl subcuticular suture was then placed. A Biopatch was placed on the peritoneal dialysis catheter as it exited, 4 x 4s and Tegaderm were placed to position the catheter snugly. The patient tolerated the procedure well. There were no intraoperative complications. All lap and instrument counts were correct at the end of the procedure. The patient was extubated and taken stable to the post-anesthesia care unit. MD CATHI Pruitt/CLARITA /10:39 AM /8:42 PM MTDLoraine
--- NOTE | 2017-01-22 21:15 | MP ---
cc: JASPER GOINS MD DATE OF SURGERY: 01/22/2017. PREOPERATIVE DIAGNOSIS: Chronic kidney disease. Need for peritoneal dialysis catheter. POSTOPERATIVE DIAGNOSES: Chronic kidney disease, need for peritoneal dialysis catheter. OPERATIVE PROCEDURE PERFORMED: Laparoscopic-assisted peritoneal dialysis catheter. SURGEON: Dr. Jasper Goins. CALL CENTER SPECIALIST: See OR sheet ANESTHESIA: GETA IV FLUIDS: 100 cc. ESTIMATED BLOOD LOSS: 5 cc. DRAINS: None. COMPLICATIONS: None. WOUND CLASSIFICATION: Clean. SPECIMENS: None. INDICATIONS FOR THE PROCEDURE: The patient is a 18-year-old male with multiple medical issues including HIV, lymphoma, end-stage renal disease in need for laparoscopic-assisted TD catheter. The patient is currently on hemodialysis. DESCRIPTION OF THE PROCEDURE IN DETAIL: The patient was taken to the operating room suite and placed in the supine position. He was prepped and draped in the usual sterile fashion after induction with general endotracheal anesthesia. A brief time out was done stating the correct patient, procedure and surgical site and we were all in agreement with this. Attention was first directed to the left lower quadrant where local anesthetic was injected. A stab joyce incision was made and a Visiport 5-mm trocar was used to enter the abdomen safely. The abdomen was insufflated to 50 mm pneumoperitoneum. A second left upper quadrant trocar was placed and previously an incisional scar 5 mm trocar. Next, on examination of the abdomen, no evidence of injuries. The abdomen was explored and preoperative planning an x was placed by the PD nurse in order to direct the placement of the outlet of the catheter. A small incision was made 1.5 cm on the right lateral side of the umbilicus with a 15 blade. Further dissection was done. A 5 mm trocar was placed and skied the peritoneum directed caudad just before the bladder and lateral to this. This was punctured through the peritoneum. A cooled-tip catheter was introduced and placed through the trocar and the trocar was removed. A cuff was placed in the location of the abdominal wall. The catheter was measured to the titanium connector which was cut and spliced between two pieces of the catheter and secured with 3-0 silk ties. The catheter then was tunneled superiorly and the track again was infiltrated with local anesthetic. The [place]-neck portion of the catheter with a Clarke cottage attendant was used. The cottage attendant was brought out at the previously marked exit site. The cuffs comfortably sat in the subcutaneous tissue. The cysto tubing was then connected to the catheter with one liter of normal saline run through this without obstruction. The bag was then placed to gravity on the floor and 850 cc were obtained with a well functioning catheter. Titanium caps with plastic tips were placed on the catheter. Pictures were taken confirming pigtail placement was adequate. The trocars were removed under direct visualization. The abdomen was desufflated. Akffmb-hx-qudai #0 Vicryl was used to the anterior fascia of the subcostal port. Vicryl was done for the subcuticular at all incision sites. 4-0 Monocryl subcuticular suture was then placed. A Biopatch was placed on the peritoneal dialysis catheter as it exited, 4 x 4s and Tegaderm were placed to position the catheter snugly. The patient tolerated the procedure well. There were no intraoperative complications. All lap and instrument counts were correct at the end of the procedure. The patient was extubated and taken stable to the post-anesthesia care unit. MD CATHI Pruitt/CLARITA /10:39 AM /8:42 PM [facility]
--- NOTE | 2017-01-22 21:15 | MP ---
cc: JASPER GOINS MD DATE OF SURGERY: 01/22/2017. PREOPERATIVE DIAGNOSIS: Chronic kidney disease. Need for peritoneal dialysis catheter. POSTOPERATIVE DIAGNOSES: Chronic kidney disease, need for peritoneal dialysis catheter. OPERATIVE PROCEDURE PERFORMED: Laparoscopic-assisted peritoneal dialysis catheter. SURGEON: Dr. Jasper Goins. JEWEL CUPPING MACHINE OPERATOR: See OR sheet ANESTHESIA: GETA IV FLUIDS: 100 cc. ESTIMATED BLOOD LOSS: 5 cc. DRAINS: None. COMPLICATIONS: None. WOUND CLASSIFICATION: Clean. SPECIMENS: None. INDICATIONS FOR THE PROCEDURE: The patient is a 18-year-old male with multiple medical issues including HIV, lymphoma, end-stage renal disease in need for laparoscopic-assisted TD catheter. The patient is currently on hemodialysis. DESCRIPTION OF THE PROCEDURE IN DETAIL: The patient was taken to the operating room suite and placed in the supine position. He was prepped and draped in the usual sterile fashion after induction with general endotracheal anesthesia. A brief time out was done stating the correct patient, procedure and surgical site and we were all in agreement with this. Attention was first directed to the left lower quadrant where local anesthetic was injected. A stab joyce incision was made and a Visiport 5-mm trocar was used to enter the abdomen safely. The abdomen was insufflated to 50 mm pneumoperitoneum. A second left upper quadrant trocar was placed and previously an incisional scar 5 mm trocar. Next, on examination of the abdomen, no evidence of injuries. The abdomen was explored and preoperative planning an x was placed by the PD nurse in order to direct the placement of the outlet of the catheter. A small incision was made 1.5 cm on the right lateral side of the umbilicus with a 15 blade. Further dissection was done. A 5 mm trocar was placed and skied the peritoneum directed caudad just before the bladder and lateral to this. This was punctured through the peritoneum. A cooled-tip catheter was introduced and placed through the trocar and the trocar was removed. A cuff was placed in the location of the abdominal wall. The catheter was measured to the titanium connector which was cut and spliced between two pieces of the catheter and secured with 3-0 silk ties. The catheter then was tunneled superiorly and the track again was infiltrated with local anesthetic. The [place]-neck portion of the catheter with a Clarke stock manager was used. The stock manager was brought out at the previously marked exit site. The cuffs comfortably sat in the subcutaneous tissue. The cysto tubing was then connected to the catheter with one liter of normal saline run through this without obstruction. The bag was then placed to gravity on the floor and 850 cc were obtained with a well functioning catheter. Titanium caps with plastic tips were placed on the catheter. Pictures were taken confirming pigtail placement was adequate. The trocars were removed under direct visualization. The abdomen was desufflated. Gdgtxw-gy-tjnqy #0 Vicryl was used to the anterior fascia of the subcostal port. Vicryl was done for the subcuticular at all incision sites. 4-0 Monocryl subcuticular suture was then placed. A Biopatch was placed on the peritoneal dialysis catheter as it exited, 4 x 4s and Tegaderm were placed to position the catheter snugly. The patient tolerated the procedure well. There were no intraoperative complications. All lap and instrument counts were correct at the end of the procedure. The patient was extubated and taken stable to the post-anesthesia care unit. MD CATHI Pruitt/CLARITA /10:39 AM /8:42 PM [facility]aine
[2017-01-23] VITALS: BP 113/76; PULSE 92; RESP 19; TEMP 98.3; O2SAT 99
[2017-01-23] MEDS: diphenhydrAMINE HCL 25 MG CAP PO PRN ×2 (06:25→11:51)
[2017-01-23 08:00] VITALS: BP 119/72; PULSE 94; RESP 18; TEMP 98.4; O2SAT 96
[2017-01-23] MEDS: SODIUM CHLORIDE 0.9% FLUSH 10 ML FLUSH IV FLUSH SCH ×2 (09:00→20:24)
--- NOTE | 2017-01-23 11:15 | HHI.NPPN ---
Subjective History of Present Illness 26-year-old male known to me from his last visit when he was admitted 8 months ago. He has past medical history, history of HIV, Lymphoma, Peripheral vascular disease, Seizure disorder,Chronic kidney disease, Advanced renal failure. He came to the hospital with abdominal pain and generalized weakness. Additional Remarks Patient is alert, no SOB,seen during HD, has mild abd. pain. Review of Systems General Constitutional: Fatigue Cardiovascular Cardiac: HERMAN Gastrointestinal Gastrointestinal: Abdominal Pain, Nausea & Vomiting Objective Data Data Vital Signs Date Time Temp Pulse Resp B/P (MAP) Pulse Ox O2 Delivery O2 Flow Rate FiO2 01/23/17 08:00 98.4 94 18 119/72 (88) 96 01/23/17 00:00 98.3 92 19 113/76 (88) 99 01/22/17 20:00 97.7 87 16 119/86 (97) 98 01/22/17 15:55 108 18 104/61 (75) 92 01/22/17 15:25 98 16 101/67 (78) 92 01/22/17 14:55 99 18 107/64 (78) 91 01/22/17 14:25 97 16 109/66 (80) 93 01/22/17 13:55 100 18 111/66 (81) 94 01/22/17 13:40 98.1 103 20 110/62 (78) 96 01/22/17 11:15 96 15 101/55 (70) 97 Room Air -: 01/22/17 0702 01/22/17 0707 Physical Exam General Appearance: No Acute Distress, Comfortable Eyes Eye Exam: Pupils Equal Pulmonary Resp Exam: Clear Bilaterally, Breath Sounds Equal, No Distress Cardiology CV Exam: Regular, Normal Sinus Rhythm Gastrointestinal/Abdomen GI Exam: Soft, Non-Tender, Bowel Sounds Present Extremeties Extremeties Remarks Bilateral BKA. Neurologic Neuro Exam: Alert, Awake, Oriented Psychiatric Psych Exam: Appropriate Responses Assessment/Plan Assessment Summary: Anemia of CKD, CKD Stage V, End Stage Renal Disease Electrolyte Assessment: Hypocalcemia, Hypokalemia Problem List: (1) Stage 5 chronic kidney disease ICD Codes: N18.5 - Chronic kidney disease, stage 5 (2) Hypertension Status: Chronic (3) Anemia Status: Chronic (4) Human immunodeficiency virus (HIV) positive Status: Chronic (5) Nausea ICD Codes: R11.0 - Nausea Status: Resolved (6) Seizure disorder Status: Chronic Plan Patient has Vascath and started on HD. Tolerated well and feeling better. calcium is better. I discuss with him about PD and HD,. 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 PD nurse discussed with his Aunt and patient. Patient has PD catheter done on 01/22. HD has problem with blood flow due to new PermCath. Will Dialyze in AM. I called Kim, he will be on HD, TTS at 4 om , to start from . He will need transportation. Possible D/C tomorrow after HD. Levi Solis MD Jan 23, 2017 11:15
[2017-01-23] MEDS: CALCIUM CARBONATE 500 MG CHEWABLE TAB CHEW SCH ×2 (11:49→20:20)
[2017-01-23] MEDS: ABACAVIR SULFATE 300 MG TAB PO SCH ×2 (11:50→20:21)
[2017-01-23] MEDS: PANTOPRAZOLE SOD 40 MG DELAYED RELEASE TAB PO SCH (11:50)
[2017-01-23] MEDS: ACETAMINOPHEN/HYDROcodone 325 MG/5 MG TAB PO PRN ×2 (11:50→20:20)
[2017-01-23] MEDS: RITONAVIR 100 MG TAB PO SCH ×2 (11:50→20:21)
[2017-01-23] MEDS: DOCUSATE SODIUM 50 MG/SENNA 8.6 MG TAB PO SCH ×2 (11:50→20:20)
[2017-01-23] MEDS: FOSAMPRENAVIR CALCIUM PO SCH ×2 (11:50→20:21)
[2017-01-23] MEDS: levETIRAcetam 250 MG TAB PO SCH ×2 (11:51→20:20)
[2017-01-23] MEDS: NYSTAT/DIPHENHY/LIDO MOUTHWASH (Adult) 120ML SWISH-SWAL SCH ×4 (11:51→20:21)
[2017-01-23 12:00] VITALS: BP 105/72; PULSE 102; RESP 18; TEMP 98.7; O2SAT 98
--- NOTE | 2017-01-23 12:13 | HHI.PR ---
Subjective Subjective Notes no acute issues, incisional pain Objective Vitals/I&O Vital Signs Date Time Temp Pulse Resp B/P (MAP) Pulse Ox O2 Delivery O2 Flow Rate FiO2 01/23/17 08:00 98.4 94 18 119/72 (88) 96 01/22/17 11:15 Room Air 01/20/17 17:21 21 Abdomen: Other (soft pd cath in place) A/P Assessment and Plan ESRD pod 1 PD cath placement - doing well PLAN ok to shower tomorrow, no bath tub, no heavy lifting Dialysis per nephro F/U in office with Dr. Goins 1 week will s/o Sen Goins MD Jan 23, 2017 12:13
--- NOTE | 2017-01-23 13:24 | HHI.PR ---
Subjective Remarks Seen early breastfeeding care specialist. In bed sleepy. Has some abd pain at the cath site. No n/v/d /c. No fever or chills. Plan for HD Objective Vitals Vital Signs Date Time Temp Pulse Resp B/P (MAP) Pulse Ox O2 Delivery O2 Flow Rate FiO2 01/23/17 12:00 98.7 102 18 105/72 (83) 98 01/23/17 08:00 98.4 94 18 119/72 (88) 96 01/23/17 00:00 98.3 92 19 113/76 (88) 99 01/22/17 20:00 97.7 87 16 119/86 (97) 98 01/22/17 15:55 108 18 104/61 (75) 92 01/22/17 15:25 98 16 101/67 (78) 92 01/22/17 14:55 99 18 107/64 (78) 91 01/22/17 14:25 97 16 109/66 (80) 93 01/22/17 13:55 100 18 111/66 (81) 94 01/22/17 13:40 98.1 103 20 110/62 (78) 96 I/O 01/22/17 01/22/17 01/22/17 01/23/17 01/23/17 01/23/17 07:00 15:00 23:00 07:00 15:00 23:00 Intake Total 100 ml 720 ml Output Total 350 ml Balance 100 ml 370 ml Intake Oral 720 ml Other 100 ml Output Urine Total 350 ml # Voids 1 # Bowel Movements 2 Result Diagram: 01/22/17 0702 01/22/17 0707 Imaging Last Impressions Catheter Placement X-Ray 01/21/17 0000 Signed Impressions: Service Date/Time: December 12:57 - CONCLUSION: Uncomplicated Dialysis catheter placement as above. Shaquille García MD Hand X-Ray 01/19/17 0000 Signed Impressions: Service Date/Time: Thursday, January 19, 2017 21:12 - CONCLUSION: No acute findings Torito Barajas MD Chest X-Ray 01/16/172119 Signed Impressions: Service Date/Time: Monday, January 16, 2017 21:37 - CONCLUSION: No acute disease. No significant change has occurred. Gilmar Benton MD Head CT 01/16/17 0000 Signed Impressions: Service Date/Time: Monday, January 16, 2017 21:27 - CONCLUSION: Normal examination. No significant change has occurred. Gilmar Benton MD Abdomen/Pelvis CT 01/16/17 0000 Signed Impressions: Service Date/Time: Monday, January 16, 2017 21:31 - CONCLUSION: Cholelithiasis without cholecystitis. Surgical absence the spleen. Otherwise negative abdomen Gilmar Benton MD Objective Remarks GENERAL: Alert, oriented 3, NAD. CARDIOVASCULAR: Regular rate and rhythm without murmurs, gallops, or rubs. RESPIRATORY: right chest PermCath in place, c/d/i. Breath sounds equal bilaterally. No accessory muscle use. GASTROINTESTINAL: PD in place, c/d/i. Abdomen soft, non-tender, nondistended. MUSCULOSKELETAL: No cyanosis, or edema. BACK: Nontender without obvious deformity. No CVA tenderness. Procedures Vas-Cath placed on 01/17/2017 A/P Problem List: (1) Seizure disorder Status: Chronic (2) KVNG (acute kidney injury) ICD Code: N17.9 - Acute kidney failure, unspecified Status: Acute (3) Metabolic acidosis ICD Code: E87.2 - Acidosis Status: Chronic (4) Non-compliance ICD Code: Z91.19 - Patient's noncompliance with other medical treatment and regimen Status: Chronic (5) HIV (human immunodeficiency virus infection) ICD Code: Z21 - Asymptomatic human immunodeficiency virus [HIV] infection status Status: Chronic Assessment and Plan 26-year-old male with a PMH of HIV (Last CD4 451 on 08/09/14), Seizure Disorder, CKD, Lymphoma and Non-Compliance who presented with multiple complaints including headache, abdominal pain, and generalized weakness Abdominal pain: Mild. Epigastric. Lipase and LFTs within normal limits. CT abdomen shows cholelithiasis without cholecystitis, s/p splenectomy, otherwise no acute process. Conginue H2 markell and Magic mouthwash. GI will likely perform EGD on 01/19/2017. Seizure Disorder: Chronic. Reported "mini seizures" as off medications, seen in ER on 12/24/16 for similar complaints, however LEFT AMA. No seizure activity during admission. Seizure Precautions, resumed home Keppra. Ativan prn if needed. CT Head w/ no acute findings. End stage renal disease - Patient is currently receiving hemodialysis using Vas-Cath. - S/p PD placement by Dr Goins gen surg on 01/22/17. Plan for IR to place vas cath - S/p PD placement 01/21 per nephro - HD has problem with blood flow due to new PermCath. - Plan to Dialyze in AM. He will be on HD, TTS at 4 om , to start from . - Possible D/C tomorrow after HD. HIV: Last CD4 451 on 08/09/14. Reports compliance w/ HAART, however unsure of recent CD4. Continue home HAART medications. Right hand pain - improved. Images unremarkable. DVT Prophylaxis: Heparin Discussed with the patient, nurse, Dr Solis nephrology DC plan: DC when arrangements done, and cleared by consultants. Discussed with Dr Solis nephrology patient has HD today but was interrupted 2/2 clogged PermCath, plan to keep patient overnight have again HD tomorrow and can be DC tomorrow. Case management also following for DC plan. HD has problem with blood flow due to new PermCath.. He will need transportation. Possible D/C tomorrow after HD. Case management is following for DC plan. Yohana Mac MD Jan 23, 2017 13:24
[2017-01-23 16:00] VITALS: BP 108/77; PULSE 108; RESP 18; TEMP 99.9; O2SAT 95
[2017-01-23 20:00] VITALS: BP 135/88; PULSE 107; RESP 16; TEMP 102.8; O2SAT 97
[2017-01-23 22:58] VITALS: BP 102/63; PULSE 112; RESP 18; TEMP 102.1; O2SAT 97
[2017-01-24] MEDS: ACETAMINOPHEN 325 MG TAB PO PRN ×3 (00:08→22:59)
[2017-01-24 04:00] VITALS: BP 90/52; PULSE 118; RESP 16; TEMP 100.3; O2SAT 98
[2017-01-24] MEDS: diphenhydrAMINE HCL 25 MG CAP PO PRN ×2 (04:58→21:13)
[2017-01-24 08:00] VITALS: BP 88/54; PULSE 106; RESP 20; TEMP 100; O2SAT 95
--- NOTE | 2017-01-24 08:09 | RADRPT ---
EXAM DATE/TIME: 01/24/2017 08:22 [facility] COMPARISON: CHEST SINGLE AP, January 16, 2017, 21:37. INDICATIONS : Fever MEDICAL HISTORY : Lymphoma. HIV. SURGICAL HISTORY : Splenectomy. ENCOUNTER: Subsequent ACUITY: 3 days PAIN SCORE: 0/10 LOCATION: Bilateral chest FINDINGS: Right-sided tunneled dialysis catheter has its tips in the right atrium and superior vena cava. Ther e is no pneumothorax. Bibasilar streakiness is noted consistent with atelectasis and/or mild infiltr ates. The heart is stable. CONCLUSION: 1. Bibasilar streakiness consistent with atelectasis and/or mild infiltrates. Clinical correlation is recommended. Ezio Caro MD on January 24, 2017 at 7:46 Board Certified Radiologist. This report was verified electronically.
[2017-01-24 08:20] LABS: BICARBONATE 25.9 MEQ/L (21.0-32.0); CALCIUM 7.7 MG/DL (8.5-10.1); CREATININE 6.88 MG/DL (0.60-1.30)
--- NOTE | 2017-01-24 08:40 | HHI.PR ---
Subjective Remarks Patient febrile overnight to 102.8. Remains tachycardic at 118, hypotensive at 90/52. Patient states he feels hot this morning. Complains of abdominal pain at the insertion site of his PD catheter. Also endorses burning with urination. He is scheduled for dialysis today. Objective Vitals Vital Signs Date Time Temp Pulse Resp B/P (MAP) Pulse Ox O2 Delivery O2 Flow Rate FiO2 01/24/17 04:00 100.3 118 16 90/52 (65) 98 01/24/17 00:58 18 01/23/17 22:58 102.1 112 18 102/63 (76) 97 01/23/17 21:20 18 01/23/17 20:00 102.8 107 16 135/88 (104) 97 01/23/17 16:00 99.9 108 18 108/77 (87) 95 01/23/17 12:00 98.7 102 18 105/72 (83) 98 I/O 01/23/17 01/23/17 01/23/17 01/24/17 01/24/17 01/24/17 07:00 15:00 23:00 07:00 15:00 23:00 Intake Total 720 ml 720 ml 720 ml 360 ml Output Total 350 ml 500 ml 450 ml 250 ml Balance 370 ml 220 ml 270 ml 110 ml Intake Oral 720 ml 720 ml 720 ml 360 ml Output Urine Total 350 ml 500 ml 450 ml 250 ml # Bowel Movements 0 Result Diagram: 01/22/1770101/24/17 0747 Objective Remarks Gen.: Sleeping in bed Head: Normocephalic. Atraumatic. EENT: Pupils equal round and reactive to light. Nose without drainage. Airway intact. Throat without injection. Cardiovascular: Regular rate and rhythm. No murmurs, rubs or gallops. Respiratory: Lungs clear to auscultation bilaterally. No wheezes or rhonchi. Abdomen: Soft, nontender, nondistended. No peritoneal signs. PD catheter in place, no signs of surrounding erythema or purulent material. Musculoskeletal: No gross deformities. Skin: No obvious rashes or erythema. PermCath in place. Clean without surrounding erythema or purulence. Neuro: Sensory and motor grossly intact. Cranial nerves II through XII grossly intact. Procedures Vas-Cath placed on 01/17/2017 A/P Problem List: (1) Seizure disorder Status: Chronic (2) KVNG (acute kidney injury) ICD Code: N17.9 - Acute kidney failure, unspecified Status: Acute (3) Metabolic acidosis ICD Code: E87.2 - Acidosis Status: Chronic (4) Non-compliance ICD Code: Z91.19 - Patient's noncompliance with other medical treatment and regimen Status: Chronic (5) HIV (human immunodeficiency virus infection) ICD Code: Z21 - Asymptomatic human immunodeficiency virus [HIV] infection status Status: Chronic Assessment and Plan 26-year-old male with a PMH of HIV (Last CD4 451 on 08/09/14), Seizure Disorder, CKD, Lymphoma and Non-Compliance who presented with multiple complaints including headache, abdominal pain, and generalized weakness Sepsis: New onset. Patient febrile to 102.8. Tachycardic and hypotensive. Reports dysuria. Workup including CBC, blood cultures, chest x-ray, UA and lactic acid pending. Chest x-ray showed bibasilar infiltrates, images reviewed by me. Will start patient on broad-spectrum antibiotics; vancomycin and Cefepime. Follow blood and urine cultures. Abdominal pain: Mild. Epigastric. Lipase and LFTs within normal limits. CT abdomen shows cholelithiasis without cholecystitis, s/p splenectomy, otherwise no acute process. Contine H2 markell and Magic mouthwash. EGD on 01/19 showed mild gastritis. Colonoscopy 01/20 with polyp, pathology pending. GI has signed off. Abd pain resolved. Seizure Disorder: Chronic. Reported "mini seizures" as off medications, seen in ER on 12/24/16 for similar complaints, however LEFT AMA. No seizure activity during admission. Seizure Precautions, resumed home Keppra. Ativan prn if needed. CT Head w/ no acute findings. End stage renal disease - Patient is currently receiving hemodialysis using Perm-Cath - S/p PD placement 01/21 per nephro - Plan to Dialyze today. He will be on HD, TTS at 4 pm , to start from . - Cleared for DC from Nephrology HIV: Last CD4 451 on 08/09/14. Reports compliance w/ HAART, however unsure of recent CD4. Continue home HAART medications. Right hand pain - improved. Images unremarkable. DVT Prophylaxis: Heparin Discharge Planning DC once clinically improved. CM to assist with transportation to dialysis. Dialysis arranged. Kasie Rivera MD Jan 24, 2017 08:40
[2017-01-24] MEDS ORDERED: PIPERACIL-TAZO 2.25 GM PREMIX 50 ML IV SCH (08:45)
[2017-01-24] MEDS ORDERED: Vancomycin Consult Pharmacy 1 EA OTHER SCH (08:45)
[2017-01-24] MEDS ORDERED: diphenhydrAMINE HCL 50 MG/ML VIAL IM PRN (08:45)
[2017-01-24] MEDS ORDERED: VANCOMYCIN INJ 1,000 MG in SODIUM CHLOR 0.9% 250 ML INJ 250 ML IV ONE (08:45)
[2017-01-24] MEDS: NYSTAT/DIPHENHY/LIDO MOUTHWASH (Adult) 120ML SWISH-SWAL SCH ×4 (09:00→21:23)
[2017-01-24] MEDS ORDERED: VANCOMYCIN 1,000 MG/NS 250 ML IV ONE ×4 (09:00→18:00)
[2017-01-24 12:00] VITALS: BP 89/56; PULSE 126; RESP 21; TEMP 102; O2SAT 96
[2017-01-24] MEDS: CALCIUM CARBONATE 500 MG CHEWABLE TAB CHEW SCH ×2 (12:38→21:13)
[2017-01-24] MEDS: levETIRAcetam 250 MG TAB PO SCH ×2 (12:38→21:13)
[2017-01-24] MEDS: ABACAVIR SULFATE 300 MG TAB PO SCH ×2 (12:38→21:12)
[2017-01-24] MEDS: ACETAMINOPHEN/HYDROcodone 325 MG/10 MG TAB PO PRN (12:39)
[2017-01-24] MEDS: DOCUSATE SODIUM 50 MG/SENNA 8.6 MG TAB PO SCH ×2 (12:39→21:13)
[2017-01-24] MEDS: PANTOPRAZOLE SOD 40 MG DELAYED RELEASE TAB PO SCH (12:39)
[2017-01-24] MEDS: RITONAVIR 100 MG TAB PO SCH ×2 (12:39→21:16)
[2017-01-24] MEDS: FOSAMPRENAVIR CALCIUM PO SCH ×2 (12:39→21:12)
[2017-01-24] MEDS: CEFEPIME INJ 1,000 MG in SODIUM CHLORIDE 0.9% INJ 100 ML IV SCH (12:40)
[2017-01-24] MEDS: SODIUM CHLORIDE 0.9% FLUSH 10 ML FLUSH IV FLUSH SCH ×2 (12:40→21:12)
[2017-01-24 12:42] VITALS: BP 89/56; PULSE 126; RESP 21; TEMP 102; O2SAT 96
[2017-01-24 12:52] LABS: AUTOMATED NEUTROPHIL # 20.9 TH/MM3 (1.8-7.7); BASOPHIL % 0.1 % (0.0-2.0); EOSINOPHIL # 0.6 TH/MM3 (0-0.4); EOSINOPHIL % 2.6 % (0.0-4.0); HEMATOCRIT 31.3 % (39.0-51.0); HEMOGLOBIN 9.7 GM/DL (13.0-17.0); LYMPH % 2.1 % (9.0-44.0); LYMPHOCYTE # 0.5 TH/MM3 (1.0-4.8); MEAN CELL VOLUME 78.8 FL (80.0-100.0); MEAN CORPUSCULAR HEMOGLOBIN 24.3 PG (27.0-34.0); MEAN CORPUSCULAR HGB CONC 30.9 % (32.0-36.0); MONO % 2.9 % (0.0-8.0); MONOCYTE # 0.7 TH/MM3 (0-0.9); NEUT % 92.3 % (16.0-70.0); PLATELET COUNT 182 TH/MM3 (150-450); RED BLOOD COUNT 3.98 MIL/MM3 (4.50-5.90); RED CELL DISTRIBUTION WIDTH 14.2 % (11.6-17.2); WHITE BLOOD COUNT 22.7 TH/MM3 (4.0-11.0)
[2017-01-24 12:57] LABS: AMORPHOUS SEDIMENT, URINE OCC; BACTERIA, URINE OCC /hpf; BILIRUBIN, URINE NEG (NEG); BLOOD, URINE SMALL (NEG); GLUCOSE,URINE 70 mg/dL (NEG); KETONE, URINE NEG (NEG); NITRITE,URINE NEG (NEG); PH, URINE 6.5 (5.0-8.5); SQUAMOUS EPITHELIAL CELL URINE 1 /hpf (0-5); URINE COLOR YELLOW (YELLW/STRAW); URINE LEUKOCYTE ESTERASE NEG (NEG)
[2017-01-24 13:28] LABS: BANDS 11 % (0-6); CORRECTED NUCLEATED RBC 21 /100 WBC (0-0); LYMPHOCYTES 5 % (9-44); NEUTROPHIL # MANUAL DIFF 21.1 TH/MM3 (1.8-7.7); NUCLEATED RED BLOOD CELL 21 (0-0); POLYS (SEG NEUTROPHILS) 82 % (16-70)
[2017-01-24 13:29] LABS: HOWELL-JOLLY BODIES PRESENT (NONE SEEN); TARGET CELLS 1+ (NORMAL)
[2017-01-24 13:30] LABS: TOXIC GRANULATION 1+ (NORMAL); TOXIC VACUOLATION PRESENT (NONE SEEN)
--- NOTE | 2017-01-24 14:34 | HHI.NPPN ---
Subjective History of Present Illness 26-year-old male known to me from his last visit when he was admitted 8 months ago. He has past medical history, history of HIV, Lymphoma, Peripheral vascular disease, Seizure disorder,Chronic kidney disease, Advanced renal failure. He came to the hospital with abdominal pain and generalized weakness. Additional Remarks Patient is alert, no SOB,seen during HD, has mild abd. pain. Review of Systems General Constitutional: Fatigue Cardiovascular Cardiac: HERMAN Gastrointestinal Gastrointestinal: Abdominal Pain, Nausea & Vomiting Objective Data Data Vital Signs Date Time Temp Pulse Resp B/P (MAP) Pulse Ox O2 Delivery O2 Flow Rate FiO2 01/24/17 12:42 102.0 126 21 89/56 (67) 96 01/24/17 08:00 100.0 106 20 88/54 (65) 95 01/24/17 04:00 100.3 118 16 90/52 (65) 98 01/24/17 00:58 18 01/23/17 22:58 102.1 112 18 102/63 (76) 97 01/23/17 21:20 18 01/23/17 20:00 102.8 107 16 135/88 (104) 97 01/23/17 16:00 99.9 108 18 108/77 (87) 95 -: 01/24/17 1232 01/24/17 0747 Microbiology 01/24/17 Aerobic Blood Culture, Received Pending 01/24/17 Anaerobic Blood Culture, Received Pending 01/24/17 Aerobic Blood Culture, Received Pending 01/24/17 Anaerobic Blood Culture, Received Pending Physical Exam General Appearance: No Acute Distress, Comfortable Eyes Eye Exam: Pupils Equal Pulmonary Resp Exam: Clear Bilaterally, Breath Sounds Equal, No Distress Cardiology CV Exam: Regular, Normal Sinus Rhythm Gastrointestinal/Abdomen GI Exam: Soft, Non-Tender, Bowel Sounds Present Neurologic Neuro Exam: Alert, Awake, Oriented Psychiatric Psych Exam: Appropriate Responses Assessment/Plan Assessment Summary: Anemia of CKD, CKD Stage V, End Stage Renal Disease Electrolyte Assessment: Hypocalcemia, Hypokalemia Problem List: (1) Stage 5 chronic kidney disease ICD Codes: N18.5 - Chronic kidney disease, stage 5 (2) Hypertension Status: Chronic (3) Anemia Status: Chronic (4) Human immunodeficiency virus (HIV) positive Status: Chronic (5) Nausea ICD Codes: R11.0 - Nausea Status: Resolved (6) Seizure disorder Status: Chronic Plan Patient has PD catheter done on 01/22. HD has problem with blood flow due to new PermCath. Will Dialyze in AM. [facility], he will be on HD, TTS at 4 om , to start from . He will need transportation. Possible D/C Mireya Eduardo MD Jan 24, 2017 14:34
[2017-01-24 15:38] LABS: LACTIC ACID SEPSIS PROTOCOL 2.7 mmol/L (0.4-2.0)
[2017-01-24 20:30] VITALS: BP 104/71; PULSE 112; RESP 16; TEMP 100.1
[2017-01-25] VITALS (7 sets, daily range): BP systolic 85–106; BP diastolic 47–58; PULSE 98–136; RESP 16–19; TEMP 98.3–103.3; O2SAT 94–100
[2017-01-25] MEDS: ACETAMINOPHEN/HYDROcodone 325 MG/5 MG TAB PO PRN ×2 (01:26→21:16)
--- NOTE | 2017-01-25 08:31 | HHI.PR ---
Subjective Remarks Febrile overnight, MAXIMUM TEMPERATURE 100.4. Remains tachycardic to 118 and hypotensive with most recent blood pressure 85/47. Patient states he does not feel well. He endorses fever/chills. He endorses fatigue. Has a new cough. Objective Vitals Vital Signs Date Time Temp Pulse Resp B/P (MAP) Pulse Ox O2 Delivery O2 Flow Rate FiO2 01/25/17 04:29 98.9 102 18 97 01/25/17 04:16 99.1 118 16 85/47 (60) 97 01/25/17 03:04 Room Air 01/25/17 02:26 19 01/25/17 01:30 100.4 01/25/17 00:07 103.3 136 16 98/58 (71) 94 01/24/17 23:57 18 01/24/17 20:30 100.1 112 16 104/71 (82) 01/24/17 12:42 102.0 126 21 89/56 (67) 96 01/24/17 12:00 102.0 126 21 89/56 (67) 96 I/O 01/24/17 01/24/17 01/24/17 01/25/17 01/25/17 01/25/17 07:00 15:00 23:00 07:00 15:00 23:00 Intake Total 360 ml 100 ml 240 ml 490 ml Output Total 250 ml 300 ml 600 ml 200 ml Balance 110 ml -200 ml -360 ml 290 ml Intake Oral 360 ml 240 ml 240 ml IV Total 100 ml 250 ml Output Urine Total 250 ml 300 ml 100 ml 200 ml Hemodialysis 500 ml # Voids 2 # Bowel Movements 0 1 Result Diagram: 01/24/17 1232 01/24/17 0747 Objective Remarks Gen.: Sleeping in bed Head: Normocephalic. Atraumatic. EENT: Pupils equal round and reactive to light. Nose without drainage. Airway intact. Throat without injection. Cardiovascular: Tachycardic. No murmurs, rubs or gallops. Respiratory: Lungs clear to auscultation bilaterally. No wheezes or rhonchi. Abdomen: Soft, nontender, nondistended. No peritoneal signs. PD catheter in place, no signs of surrounding erythema or purulent material. Musculoskeletal: No gross deformities. Skin: No obvious rashes or erythema. PermCath in place. Clean without surrounding erythema or purulence. Neuro: Sensory and motor grossly intact. Cranial nerves II through XII grossly intact. Procedures Vas-Cath placed on 01/17/2017 A/P Problem List: (1) Seizure disorder Status: Chronic (2) KVNG (acute kidney injury) ICD Code: N17.9 - Acute kidney failure, unspecified Status: Acute (3) Metabolic acidosis ICD Code: E87.2 - Acidosis Status: Chronic (4) Non-compliance ICD Code: Z91.19 - Patient's noncompliance with other medical treatment and regimen Status: Chronic (5) HIV (human immunodeficiency virus infection) ICD Code: Z21 - Asymptomatic human immunodeficiency virus [HIV] infection status Status: Chronic Assessment and Plan 26-year-old male with a PMH of HIV (Last CD4 451 on 08/09/14), Seizure Disorder, CKD, Lymphoma and Non-Compliance who presented with multiple complaints including headache, abdominal pain, and generalized weakness Sepsis: New onset. Patient remains febrile with Tmax overnight 100.4. Tachycardic and hypotensive. UA wnl. New leukocytosis, possibly from early onset PNA. Blood cultures pending. Lactic acid elevated to 2.9. Chest x-ray showed bibasilar infiltrates, images reviewed by me. Continue vancomycin and Cefepime. Follow blood and urine cultures. ID consulted, appreciate assistance. Abdominal pain: Epigastric - RESOLVED. Lipase and LFTs within normal limits. CT abdomen shows cholelithiasis without cholecystitis, s/p splenectomy, otherwise no acute process. Contine H2 markell and Magic mouthwash. EGD on showed mild gastritis. Colonoscopy 01/20 with polyp, pathology pending. GI has signed off. Abd pain resolved. Seizure Disorder: Chronic. Reported "mini seizures" as off medications, seen in ER on 12/24/16 for similar complaints, however LEFT AMA. No seizure activity during admission. Seizure Precautions, resumed home Keppra. Ativan prn if needed. CT Head w/ no acute findings. End stage renal disease - Patient is currently receiving hemodialysis using Perm-Cath - S/p PD placement 01/21 per nephro - HD, TTS at 4 pm, to start from . - Cleared for DC from Nephrology HIV: Last CD4 451 on 08/09/14. Reports compliance w/ HAART, however unsure of recent CD4. Continue home HAART medications. Right hand pain - improved. Images unremarkable. DVT Prophylaxis: Heparin Discharge Planning DC once clinically improved. CM to assist with transportation to dialysis. Dialysis arranged. Kasie Rivera MD Jan 25, 2017 08:31
[2017-01-25] MEDS: ABACAVIR SULFATE 300 MG TAB PO SCH ×2 (09:38→20:17)
[2017-01-25] MEDS: DOCUSATE SODIUM 50 MG/SENNA 8.6 MG TAB PO SCH ×2 (09:38→20:17)
[2017-01-25] MEDS: FOSAMPRENAVIR CALCIUM PO SCH ×2 (09:38→20:16)
[2017-01-25] MEDS: RITONAVIR 100 MG TAB PO SCH ×2 (09:38→20:17)
[2017-01-25] MEDS: CALCIUM CARBONATE 500 MG CHEWABLE TAB CHEW SCH ×2 (09:38→20:17)
[2017-01-25] MEDS: PANTOPRAZOLE SOD 40 MG DELAYED RELEASE TAB PO SCH (09:38)
[2017-01-25] MEDS: SODIUM CHLORIDE 0.9% FLUSH 10 ML FLUSH IV FLUSH SCH ×2 (09:39→21:00)
[2017-01-25] MEDS: levETIRAcetam 250 MG TAB PO SCH ×2 (09:39→20:17)
[2017-01-25] MEDS: NYSTAT/DIPHENHY/LIDO MOUTHWASH (Adult) 120ML SWISH-SWAL SCH ×4 (09:39→20:17)
[2017-01-25] MEDS: CEFEPIME INJ 1,000 MG in SODIUM CHLORIDE 0.9% INJ 100 ML IV SCH (09:51)
[2017-01-25 10:27] LABS: BASOPHIL % 0.1 % (0.0-2.0); EOSINOPHIL # 0.5 TH/MM3 (0-0.4); EOSINOPHIL % 2.1 % (0.0-4.0); HEMATOCRIT 25.8 % (39.0-51.0); HEMOGLOBIN 8.1 GM/DL (13.0-17.0); LYMPH % 1.1 % (9.0-44.0); LYMPHOCYTE # 0.3 TH/MM3 (1.0-4.8); MEAN CELL VOLUME 78.1 FL (80.0-100.0); MEAN CORPUSCULAR HEMOGLOBIN 24.5 PG (27.0-34.0); MEAN CORPUSCULAR HGB CONC 31.4 % (32.0-36.0); MEAN PLATELET VOLUME 10.2 FL (7.0-11.0); MONO % 13.3 % (0.0-8.0); NEUT % 83.4 % (16.0-70.0); PLATELET COUNT 162 TH/MM3 (150-450); RED BLOOD COUNT 3.31 MIL/MM3 (4.50-5.90); RED CELL DISTRIBUTION WIDTH 14.3 % (11.6-17.2); WHITE BLOOD COUNT 22.8 TH/MM3 (4.0-11.0)
[2017-01-25 10:45] LABS: BICARBONATE 29.1 MEQ/L (21.0-32.0); CALCIUM 7.5 MG/DL (8.5-10.1); CREATININE 6.43 MG/DL (0.60-1.30)
[2017-01-25 11:39] LABS: BANDS 18 % (0-6); CORRECTED NUCLEATED RBC 16 /100 WBC (0-0); LYMPHOCYTES 3 % (9-44); MONOCYTES 2 % (0-8); NEUTROPHIL # MANUAL DIFF 20.7 TH/MM3 (1.8-7.7); NUCLEATED RED BLOOD CELL 16 (0-0); POLYS (SEG NEUTROPHILS) 73 % (16-70)
[2017-01-25 11:40] LABS: HOWELL-JOLLY BODIES PRESENT (NONE SEEN); TARGET CELLS 1+ (NORMAL)
--- NOTE | 2017-01-25 14:43 | HHI.NPPN ---
Subjective History of Present Illness 26-year-old male known to me from his last visit when he was admitted 8 months ago. He has past medical history, history of HIV, Lymphoma, Peripheral vascular disease, Seizure disorder,Chronic kidney disease, Advanced renal failure. He came to the hospital with abdominal pain and generalized weakness. Additional Remarks Patient is alert, no SOB, has mild abd. pain. Review of Systems General Constitutional: Fatigue Cardiovascular Cardiac: HERMAN Gastrointestinal Gastrointestinal: Abdominal Pain, Nausea & Vomiting Objective Data Data Vital Signs Date Time Temp Pulse Resp B/P (MAP) Pulse Ox O2 Delivery O2 Flow Rate FiO2 01/25/17 08:00 98.8 105 18 106/51 (69) 100 01/25/17 04:29 98.9 102 18 97 01/25/17 04:16 99.1 118 16 85/47 (60) 97 01/25/17 03:04 Room Air 01/25/17 02:26 19 01/25/17 01:30 100.4 01/25/17 00:07 103.3 136 16 98/58 (71) 94 01/24/17 23:57 18 01/24/17 20:30 100.1 112 16 104/71 (82) -: 01/25/17 0954 01/25/17 0954 Physical Exam General Appearance: No Acute Distress, Comfortable Eyes Eye Exam: Pupils Equal Pulmonary Resp Exam: Clear Bilaterally, Breath Sounds Equal, No Distress Cardiology CV Exam: Regular, Normal Sinus Rhythm Gastrointestinal/Abdomen GI Exam: Soft, Non-Tender, Bowel Sounds Present Neurologic Neuro Exam: Alert, Awake, Oriented Psychiatric Psych Exam: Appropriate Responses Assessment/Plan Assessment Summary: Anemia of CKD, CKD Stage V, End Stage Renal Disease Electrolyte Assessment: Hypocalcemia, Hypokalemia Problem List: (1) Stage 5 chronic kidney disease ICD Codes: N18.5 - Chronic kidney disease, stage 5 (2) Hypertension Status: Chronic (3) Anemia Status: Chronic (4) Human immunodeficiency virus (HIV) positive Status: Chronic (5) Nausea ICD Codes: R11.0 - Nausea Status: Resolved (6) Seizure disorder Status: Chronic Plan Patient has PD catheter done on 01/22. HD has problem with blood flow due to new PermCath. . [facility], he will be on HD, TTS at 4 pm , to start from . He will need transportation. Possible D/C last dialysis yesterday [address] Willis to follow Mireya Eduardo MD Jan 25, 2017 14:43
--- NOTE | 2017-01-25 16:05 | MB ---
cc: VANESSA DURANT MD DATE OF CONSULTATION: 01/25/2017. REASON FOR CONSULTATION: HIV positive in a noncompliant patient with end-stage renal disease. Newly placed PD catheter. Concern for sepsis. Assist with treatment. REQUESTING PHYSICIAN: Dr. Rivera. HISTORY OF PRESENT ILLNESS: This is a 26-year-old black male with history of end-stage renal disease. The patient also has HIV disease. The patient was admitted to the hospital on 01/16. He presented to the emergency department with abdominal pain and generalized malaise and also reportedly complained of headache in the emergency department. He has a history of splenectomy. The patient is HIV positive and has been on HIV medications. I attempted to interview the patient, but he is very difficult. He does not want to talk to me. I tried my best to get him to answer questions. He states that he is just frustrated in that he has pain all over and that his mouth hurts. I tried to ask him other questions and he said, "I told you everything I need to tell you". I tried to ask him about symptom complaints and he refuses to answer me; therefore, information is obtained from the medical record. I tried to ask the patient why he would not talk to me or answer questions. He states that he is in pain and we are not doing anything to help him. The patient had a temperature of 103 degrees earlier today. He had elevated temperatures on 01/23 including 102.8 degrees. Blood cultures from 01/24 have no growth in one day. His white blood cell count climbed from 10.3 to 22.7 between 01/22 and 01/24. Chest x-ray on 01/24 shows bilateral streakiness consistent with atelectasis and/or mild infiltrates. The patient does not appear to be coughing. He had a recent placement of a peritoneal dialysis catheter on 01/22 which was laparoscopic-assisted peritoneal catheter placement. He has been undergoing hemodialysis via a Permacath which was placed into the right internal jugular. PAST MEDICAL HISTORY: 1. HIV disease. 2. End-stage renal disease. 3. Seizure disorder. 4. Lymphoma. 5. Splenectomy. 6. Bilateral below-knee amputations. ALLERGIES: 1. AMOXICILLIN. 2. PENICILLIN. MEDICATIONS: 1. Cefepime. 2. Protonix. 3. Epogen. 4. Janeen-Colace. 5. Ziagen. 6. Epivir. 7. Norvir. 8. Lexiva. 9. [place] 5 PRN. 10. Keppra. FAMILY HISTORY: Reviewed in chart. SOCIAL HISTORY: No tobacco, occasional alcohol, positive marijuana and FLACCA. REVIEW OF SYSTEMS: Unable to perform since the patient does not cooperate. PHYSICAL EXAMINATION: GENERAL: This is a slender male who is in no acute distress. He is awake and appears alert. VITAL SIGNS: Include temperature of 98.8, blood pressure 106/51, respirations 18, heart rate 105. HEAD, EYES, EARS, NOSE, THROAT: The head is atraumatic. Extraocular movements appear grossly intact. Pupils are reactive to light without icterus. The tongue has no thrush. NECK: The neck has no adenopathy. LUNGS: Clear breath sounds to auscultation. HEART: Regular rate and rhythm without murmurs, rubs or gallops audible. ABDOMEN: Bowel sounds present, soft, no tenderness appreciated. RECTAL: Not performed. EXTREMITIES: The bilateral lower extremity stumps appear intact. No clubbing or cyanosis. No edema. SKIN: No visible rash. NEUROLOGIC: Difficult to evaluate since the patient does not want to cooperate. PSYCHIATRIC: The patient has a flat affect. LABS: White blood cells 22.8, platelets 162, 83% neutrophils, 13% monocytes. Creatinine 3.43, BUN 38, sodium 131. IMPRESSION: 1. Fever and leukocytosis in a patient with HIV disease. End-stage renal disease. Blood cultures are pending. Currently no clear source of infection. 2. Abnormal chest x-ray which may suggest early pneumonia. 3. HIV. 4. Recent peritoneal dialysis catheter insertion. RECOMMENDATIONS: 1. Continue cefepime intravenously since the patient likely has pneumonia as a source of his fever but he also may have another source which is yet to be identified. His white count is still high but his temperature is lower since elevation recorded earlier today. He does not any symptoms so it is difficult to tell whether he has definite foci of infection based on interviewing him. 2. Monitor the blood cultures. 3. Monitor temperature. 4. Monitor white blood cell count. 5. Observe for symptoms suggesting source of the fever and white count. Since the patient will not communicate with me of his own volition, I cannot elicit any additional information which may help in determining the source of his elevated white blood cell count and fever. I will follow the patient along with you and hopefully he will open up and start to be more cooperative with the care that is being given to him here. Thank you for this consultation. Vanessa Durant MD FD/[facility] /1:49 PM /3:48 PM
[2017-01-25] MEDS: diphenhydrAMINE HCL 25 MG CAP PO PRN (21:16)
[2017-01-26 00:10] VITALS: BP 112/69; PULSE 99; RESP 16; TEMP 97.5; O2SAT 100
[2017-01-26] MEDS: diphenhydrAMINE HCL 25 MG CAP PO PRN ×2 (03:02→10:33)
[2017-01-26 04:03] VITALS: BP 100/62; PULSE 90; RESP 16; TEMP 97.6; O2SAT 99
[2017-01-26] MEDS: ACETAMINOPHEN/HYDROcodone 325 MG/5 MG TAB PO PRN (06:06)
[2017-01-26] MEDS: RITONAVIR 100 MG TAB PO SCH ×2 (07:31→21:52)
[2017-01-26] MEDS: DOCUSATE SODIUM 50 MG/SENNA 8.6 MG TAB PO SCH ×2 (07:31→21:52)
[2017-01-26] MEDS: ABACAVIR SULFATE 300 MG TAB PO SCH ×2 (07:31→21:53)
[2017-01-26] MEDS: FOSAMPRENAVIR CALCIUM PO SCH ×2 (07:31→21:52)
[2017-01-26] MEDS: NYSTAT/DIPHENHY/LIDO MOUTHWASH (Adult) 120ML SWISH-SWAL SCH ×2 (07:31→11:44)
[2017-01-26] MEDS: levETIRAcetam 250 MG TAB PO SCH ×2 (07:31→21:53)
[2017-01-26] MEDS: PANTOPRAZOLE SOD 40 MG DELAYED RELEASE TAB PO SCH (07:31)
[2017-01-26] MEDS: CALCIUM CARBONATE 500 MG CHEWABLE TAB CHEW SCH (07:32)
[2017-01-26] MEDS: SODIUM CHLORIDE 0.9% FLUSH 10 ML FLUSH IV FLUSH SCH ×2 (07:36→21:53)
[2017-01-26 07:53] VITALS: BP 111/58; PULSE 92; RESP 18; TEMP 97.3; O2SAT 100
[2017-01-26] MEDS ORDERED: PHARMACY ORDERED LAB ONE (08:00)
[2017-01-26 09:11] LABS: AUTOMATED NEUTROPHIL # 12.5 TH/MM3 (1.8-7.7); BASOPHIL # 0.1 TH/MM3 (0-0.2); BASOPHIL % 0.5 % (0.0-2.0); EOSINOPHIL # 0.3 TH/MM3 (0-0.4); EOSINOPHIL % 2.4 % (0.0-4.0); HEMATOCRIT 24.1 % (39.0-51.0); HEMOGLOBIN 7.6 GM/DL (13.0-17.0); LYMPH % 3.5 % (9.0-44.0); LYMPHOCYTE # 0.5 TH/MM3 (1.0-4.8); MEAN CELL VOLUME 77.6 FL (80.0-100.0); MEAN CORPUSCULAR HEMOGLOBIN 24.6 PG (27.0-34.0); MEAN CORPUSCULAR HGB CONC 31.7 % (32.0-36.0); MEAN PLATELET VOLUME 9.3 FL (7.0-11.0); MONO % 8.1 % (0.0-8.0); MONOCYTE # 1.2 TH/MM3 (0-0.9); NEUT % 85.5 % (16.0-70.0); PLATELET COUNT 154 TH/MM3 (150-450); RED CELL DISTRIBUTION WIDTH 14.4 % (11.6-17.2); WHITE BLOOD COUNT 14.6 TH/MM3 (4.0-11.0)
[2017-01-26 09:53] LABS: BICARBONATE 24.8 MEQ/L (21.0-32.0); CREATININE 8.3 MG/DL (0.60-1.30)
[2017-01-26] MEDS: CEFEPIME INJ 1,000 MG in SODIUM CHLORIDE 0.9% INJ 100 ML IV SCH (10:00)
[2017-01-26 10:05] LABS: ACANTHOCYTES OCC (NORMAL); BANDS 9 % (0-6); CORRECTED NUCLEATED RBC 8 /100 WBC (0-0); LYMPHOCYTES 7 % (9-44); METAMYELOCYTES 1 % (0-1); NEUTROPHIL # MANUAL DIFF 13.3 TH/MM3 (1.8-7.7); NUCLEATED RED BLOOD CELL 8 (0-0); POLYS (SEG NEUTROPHILS) 81 % (16-70); TARGET CELLS 2+ (NORMAL)
[2017-01-26 10:11] LABS: HOWELL-JOLLY BODIES PRESENT (NONE SEEN)
[2017-01-26] MEDS: ACETAMINOPHEN/HYDROcodone 325 MG/10 MG TAB PO PRN ×2 (10:34→22:02)
[2017-01-26 12:00] VITALS: BP 98/53; PULSE 91; RESP 18; TEMP 96.6; O2SAT 94
--- NOTE | 2017-01-26 12:10 | HHI.PR ---
Subjective Remarks Follow-up for ESRD, possible early pneumonia. Patient is currently doing well. After starting cefepime patient complained of itchiness. Have a history of amoxicillin, penicillin G allergies. Currently no acute concerns except for itchiness on his face. No fever or chills. Objective Vitals Vital Signs Date Time Temp Pulse Resp B/P (MAP) Pulse Ox O2 Delivery O2 Flow Rate FiO2 01/26/17 07:53 97.3 92 18 111/58 (75) 100 01/26/17 07:02 16 01/26/17 04:03 97.6 90 16 100/62 (75) 99 01/26/17 00:10 97.5 99 16 112/69 (83) 100 01/25/17 20:50 98.3 98 16 97/54 (68) 100 01/25/17 16:00 99.8 114 19 97/48 (64) 96 I/O 01/25/17 01/25/17 01/25/17 01/26/17 01/26/17 01/26/17 07:00 15:00 23:00 07:00 15:00 23:00 Intake Total 490 ml 100 ml 240 ml 360 ml Output Total 200 ml 100 ml 300 ml Balance 290 ml 100 ml 140 ml 60 ml Intake Oral 240 ml 240 ml 360 ml IV Total 250 ml 100 ml Output Urine Total 200 ml 100 ml 300 ml # Voids 2 # Bowel Movements 1 1 1 2 Result Diagram: 01/26/1748 01/26/1748 Objective Remarks GENERAL: Alert, oriented 3, NAD. SKIN: Warm and dry. HEAD: Normocephalic. EYES: No scleral icterus. No injection or drainage. NECK: Supple, trachea midline. No JVD or lymphadenopathy. CARDIOVASCULAR: Regular rate and rhythm without murmurs, gallops, or rubs. RESPIRATORY: Breath sounds equal bilaterally. No accessory muscle use. GASTROINTESTINAL: Abdomen soft, non-tender, nondistended. MUSCULOSKELETAL: No cyanosis, or edema. BACK: Nontender without obvious deformity. No CVA tenderness. Procedures Vas-Cath placed on 01/17/2017 A/P Problem List: (1) Seizure disorder Status: Chronic (2) KVNG (acute kidney injury) ICD Code: N17.9 - Acute kidney failure, unspecified Status: Acute (3) Metabolic acidosis ICD Code: E87.2 - Acidosis Status: Chronic (4) Non-compliance ICD Code: Z91.19 - Patient's noncompliance with other medical treatment and regimen Status: Chronic (5) HIV (human immunodeficiency virus infection) ICD Code: Z21 - Asymptomatic human immunodeficiency virus [HIV] infection status Status: Chronic Assessment and Plan 26-year-old male with a PMH of HIV (Last CD4 451 on 08/09/14), Seizure Disorder, CKD, Lymphoma and Non-Compliance who presented with multiple complaints including headache, abdominal pain, and generalized weakness Probable pneumonia - patient could not tolerate cefepime. Infectious disease consultation indicated probable early pneumonia. - We'll DC vancomycin and cefepime. We'll start patient on Levaquin by mouth. We'll plan on giving Levaquin for equivalent of 6-7 day duration. Abdominal pain: Mild. Epigastric. Lipase and LFTs within normal limits. CT abdomen shows cholelithiasis without cholecystitis, s/p splenectomy, otherwise no acute process. Conginue H2 markell and Magic mouthwash. EGD on 01/19/2017 showed only mild gastritis. Seizure Disorder: Chronic. Reported "mini seizures" as off medications, seen in ER on 12/24/16 for similar complaints, however LEFT AMA. No seizure activity during admission. Seizure Precautions, resumed home Keppra. Ativan prn if needed. CT Head w/ no acute findings. End stage renal disease - Patient is currently receiving hemodialysis using Perm-Cath - S/p PD placement 01/21 per nephro - HD, TTS at 4 pm, to start from . - Per Nephrology note, there was some problem with PermCath. Discussed with Dr. Solis. If he clears for discharge, we will try to discharge patient by tomorrow. HIV: Last CD4 451 on 08/09/14. Reports compliance w/ HAART, however unsure of recent CD4. Continue home HAART medications. Right hand pain - improved. Images unremarkable. DVT Prophylaxis: Heparin Mehreen Branch DO Jan 26, 2017 12:10 pm
[2017-01-26 16:00] VITALS: BP 109/55; PULSE 101; RESP 17; TEMP 96.1; O2SAT 99
[2017-01-26] MEDS ORDERED: predniSONE 20 MG TAB PO ONE (17:00)
[2017-01-26] MEDS ORDERED: POTASSIUM CHLORIDE 20 MEQ CONTROLLED RELEASE TAB PO ONE (17:00)
--- NOTE | 2017-01-26 17:15 | HHI.NPPN ---
Subjective History of Present Illness 26-year-old male known to me from his last visit when he was admitted 8 months ago. He has past medical history, history of HIV, Lymphoma, Peripheral vascular disease, Seizure disorder,Chronic kidney disease, Advanced renal failure. He came to the hospital with abdominal pain and generalized weakness. Additional Remarks Patient is alert, no SOB, has mild abd. pain. Review of Systems General Constitutional: Fatigue Cardiovascular Cardiac: HERMAN Gastrointestinal Gastrointestinal: Abdominal Pain, Nausea & Vomiting Objective Data Data Vital Signs Date Time Temp Pulse Resp B/P (MAP) Pulse Ox O2 Delivery O2 Flow Rate FiO2 01/26/17 12:00 96.6 91 18 98/53 (68) 94 01/26/17 07:53 97.3 92 18 111/58 (75) 100 01/26/17 07:02 16 01/26/17 04:03 97.6 90 16 100/62 (75) 99 01/26/17 00:10 97.5 99 16 112/69 (83) 100 01/25/17 20:50 98.3 98 16 97/54 (68) 100 -: 01/26/17 0848 01/26/17 0848 Physical Exam General Appearance: No Acute Distress, Comfortable Eyes Eye Exam: Pupils Equal Pulmonary Resp Exam: Clear Bilaterally, Breath Sounds Equal, No Distress Cardiology CV Exam: Regular, Normal Sinus Rhythm Gastrointestinal/Abdomen GI Exam: Soft, Non-Tender, Bowel Sounds Present Extremeties Extremeties Remarks Bilateral BKA. Neurologic Neuro Exam: Alert, Awake, Oriented Psychiatric Psych Exam: Appropriate Responses Assessment/Plan Assessment Summary: Anemia of CKD, CKD Stage V, End Stage Renal Disease Electrolyte Assessment: Hypocalcemia, Hypokalemia Problem List: (1) Stage 5 chronic kidney disease ICD Codes: N18.5 - Chronic kidney disease, stage 5 (2) Hypertension Status: Chronic (3) Anemia Status: Chronic (4) Human immunodeficiency virus (HIV) positive Status: Chronic (5) Nausea ICD Codes: R11.0 - Nausea Status: Resolved (6) Seizure disorder Status: Chronic Plan Patient has PD catheter done on 01/22. HD has problem with blood flow due to new PermCath. . [facility], he will be on HD, TTS at 4 pm , to start from . He will need transportation. Possible D/C last dialysis yesterday [address] Juamni to follow Levi Solis MD Jan 26, 2017 17:15
[2017-01-26] MEDS: LEVOFLOXACIN 500 MG TAB PO SCH (18:29)
[2017-01-26 20:11] VITALS: BP 105/63; PULSE 101; RESP 16; TEMP 97.2; O2SAT 99
[2017-01-26] MEDS: HEPARIN SODIUM - SQ 10,000 UNITS/ML VIAL SQ SCH (21:53)
[2017-01-27 00:20] VITALS: BP 106/66; PULSE 91; RESP 16; TEMP 97; O2SAT 99
[2017-01-27 04:55] VITALS: BP 144/73; PULSE 102; RESP 18; TEMP 98.3; O2SAT 96
[2017-01-27] MEDS: ACETAMINOPHEN/HYDROcodone 325 MG/10 MG TAB PO PRN (06:33)
[2017-01-27] MEDS: diphenhydrAMINE HCL 25 MG CAP PO PRN ×2 (06:33→14:10)
[2017-01-27 08:00] VITALS: BP 107/67; PULSE 79; RESP 18; TEMP 96.5; O2SAT 100
[2017-01-27] MEDS: HEPARIN SODIUM - SQ 10,000 UNITS/ML VIAL SQ SCH (09:00)
[2017-01-27] MEDS ORDERED: predniSONE 20 MG TAB PO SCH (09:00)
[2017-01-27 10:45] LABS: BICARBONATE 28.3 MEQ/L (21.0-32.0); CALCIUM 8.8 MG/DL (8.5-10.1); CREATININE 6.32 MG/DL (0.60-1.30)
[2017-01-27] MEDS ORDERED: PRED20 PO (10:53)
--- NOTE | 2017-01-27 10:57 | HHI.PR ---
Subjective Remarks Follow-up for ESRD, possible early pneumonia. Patient is currently doing well. Currently undergoing dialysis. His facial swelling is better. No fever, chills. Itching is improved with Benadryl as well. Objective Vitals Vital Signs Date Time Temp Pulse Resp B/P (MAP) Pulse Ox O2 Delivery O2 Flow Rate FiO2 01/27/17 08:00 96.5 79 18 107/67 (80) 100 01/27/17 04:55 98.3 102 18 144/73 (96) 96 01/27/17 01:45 Room Air 01/27/17 00:20 97.0 91 16 106/66 (79) 99 01/26/17 22:50 18 01/26/17 20:11 97.2 101 16 105/63 (77) 99 01/26/17 16:00 96.1 101 17 109/55 (73) 99 01/26/17 12:00 96.6 91 18 98/53 (68) 94 I/O 01/26/17 01/26/17 01/26/17 01/27/17 01/27/17 01/27/17 07:00 15:00 23:00 07:00 15:00 23:00 Intake Total 360 ml 720 ml 240 ml 360 ml Output Total 300 ml 500 ml 400 ml 400 ml Balance 60 ml 220 ml -160 ml -40 ml Intake Oral 360 ml 720 ml 240 ml 360 ml Output Urine Total 300 ml 500 ml 400 ml 400 ml # Bowel Movements 2 0 0 0 Result Diagram: 01/26/17 0848 01/27/17 0945 Objective Remarks GENERAL: Alert, oriented 3, NAD. SKIN: Warm and dry. HEAD: Normocephalic. EYES: No scleral icterus. No injection or drainage. NECK: Supple, trachea midline. No JVD or lymphadenopathy. CARDIOVASCULAR: Regular rate and rhythm without murmurs, gallops, or rubs. RESPIRATORY: Breath sounds equal bilaterally. No accessory muscle use. GASTROINTESTINAL: Abdomen soft, non-tender, nondistended. MUSCULOSKELETAL: No cyanosis, or edema. BACK: Nontender without obvious deformity. No CVA tenderness. Procedures Vas-Cath placed on 01/17/2017 A/P Problem List: (1) Seizure disorder Status: Chronic (2) KVNG (acute kidney injury) ICD Code: N17.9 - Acute kidney failure, unspecified Status: Acute (3) Metabolic acidosis ICD Code: E87.2 - Acidosis Status: Chronic (4) Non-compliance ICD Code: Z91.19 - Patient's noncompliance with other medical treatment and regimen Status: Chronic (5) HIV (human immunodeficiency virus infection) ICD Code: Z21 - Asymptomatic human immunodeficiency virus [HIV] infection status Status: Chronic Assessment and Plan 26-year-old male with a PMH of HIV (Last CD4 451 on 08/09/14), Seizure Disorder, CKD, Lymphoma and Non-Compliance who presented with multiple complaints including headache, abdominal pain, and generalized weakness Probable pneumonia - patient could not tolerate cefepime. Infectious disease consultation indicated probable early pneumonia. - Continue Levaquin by mouth. We'll plan on giving Levaquin for equivalent of 6-7 day duration. Drug allergy - possibly due to Cefepime. - Patient is currently on Prednisone 20mg BID. We will continue this for 3 more days. - Benadryl PO for itching. Abdominal pain: Mild. Epigastric. Lipase and LFTs within normal limits. CT abdomen shows cholelithiasis without cholecystitis, s/p splenectomy, otherwise no acute process. Conginue H2 markell and Magic mouthwash. EGD on 01/19/2017 showed only mild gastritis. Seizure Disorder: Chronic. Reported "mini seizures" as off medications, seen in ER on 12/24/16 for similar complaints, however LEFT AMA. No seizure activity during admission. Seizure Precautions, resumed home Keppra. Ativan prn if needed. CT Head w/ no acute findings. End stage renal disease - Patient is currently receiving hemodialysis using Perm-Cath - S/p PD placement 01/21 per nephro - HD, TTS at 4 pm, to start from . - will discharge patient home with home health today IF arrangements are made. - Hypokalemia - K+ was 2.9 yesterday. We gave him oral KCL. Today, K+ is improved to 4.2. HIV: Last CD4 451 on 08/09/14. Reports compliance w/ HAART, however unsure of recent CD4. Continue home HAART medications. Right hand pain - improved. Images unremarkable. DVT Prophylaxis: Heparin Mehreen Branch DO Jan 27, 2017 10:57 am
[2017-01-27] MEDS: HEPARIN SODIUM - IV 10,000 UNITS/10 ML VIAL PRN (12:08)
[2017-01-27] MEDS: GENTAMICIN SULFATE (DIALYSIS USE ONLY) 20 MG/2 ML VIAL OTHER PRN (12:09)
[2017-01-27] MEDS: RITONAVIR 100 MG TAB PO SCH (14:09)
[2017-01-27] MEDS: ACETAMINOPHEN/HYDROcodone 325 MG/5 MG TAB PO PRN (14:09)
[2017-01-27] MEDS: ABACAVIR SULFATE 300 MG TAB PO SCH (14:09)
[2017-01-27] MEDS: PANTOPRAZOLE SOD 40 MG DELAYED RELEASE TAB PO SCH (14:09)
[2017-01-27] MEDS: LEVOFLOXACIN 500 MG TAB PO SCH (14:10)
[2017-01-27] MEDS: FOSAMPRENAVIR CALCIUM PO SCH (14:10)
[2017-01-27] MEDS: levETIRAcetam 250 MG TAB PO SCH (14:10)
[2017-01-27] MEDS: DOCUSATE SODIUM 50 MG/SENNA 8.6 MG TAB PO SCH (14:10)
[2017-01-27] MEDS ORDERED: LEVE250 PO (15:15)
[2017-01-27] MEDS ORDERED: LAMI150 PO (15:20)
[2017-01-27] MEDS ORDERED: ZIAG300T3 PO (15:20)
[2017-01-27] MEDS ORDERED: RITO100 PO (15:20)
[2017-01-27] MEDS ORDERED: FOSA PO (15:20)
--- NOTE | 2017-01-28 00:22 | HHI.DS ---
Discharge Summary Admission Date Jan 17, 2017 at 08:18 Discharge Date: Jan 27, 2017 Admitting Diagnosis anion gap metabolic acidosis, ketoacidosis, renal insufficiency (1) Seizure disorder Status: Chronic (2) KVNG (acute kidney injury) ICD Code: N17.9 - Acute kidney failure, unspecified Status: Acute (3) Metabolic acidosis ICD Code: E87.2 - Acidosis Status: Chronic (4) Non-compliance ICD Code: Z91.19 - Patient's noncompliance with other medical treatment and regimen Status: Chronic (5) HIV (human immunodeficiency virus infection) ICD Code: Z21 - Asymptomatic human immunodeficiency virus [HIV] infection status Status: Chronic Procedures Vas-Cath placed on 01/17/2017 Brief History - From Admission This is a 26-year-old male with a PMH of HIV (Last CD4 451 on 08/09/14), Seizure Disorder, CKD, Lymphoma and Non-Compliance who presented to the ER w/ c/o generalized malaise in addition to "minor seizures" because ran out of his medications. Seen in ER on 12/24/16 for similar complaints, however LEFT AMA. Returns now w/ recurrent symptoms. Denies fever, chills or sick contacts. Does not know CD4 count, reports compliance w/ HAART. On arrival, BP 147/94, HR 120, O2 sat 98% on RA, Afebrile. CBC at baseline. Chemistry with anion gap acidosis, AG 21. Creatinine 7.22, WBC 6.11 on 12/13/16. Lipase 325. CT Head w / no acute findings. CT Abd/Pelvis w/ cholelithiasis, no cholecystitis. CXR w / no acute findings. S/p 1L IVF in ER. CBC/BMP: 01/26/17 0848 01/27/17 0945 Significant Findings Laboratory Tests Test 01/25/17 09:54 01/26/17 08:48 01/27/17 09:45 White Blood Count 22.8 TH/MM3 (4.0-11.0) 14.6 TH/MM3 (4.0-11.0) Red Blood Count 3.31 MIL/MM3 (4.50-5.90) 3.10 MIL/MM3 (4.50-5.90) Hemoglobin 8.1 GM/DL (13.0-17.0) 7.6 GM/DL (13.0-17.0) Hematocrit 25.8 % (39.0-51.0) 24.1 % (39.0-51.0) Mean Corpuscular Volume 78.1 FL (80.0-100.0) 77.6 FL (80.0-100.0) Mean Corpuscular Hemoglobin 24.5 PG (27.0-34.0) 24.6 PG (27.0-34.0) Mean Corpuscular Hemoglobin Concent 31.4 % (32.0-36.0) 31.7 % (32.0-36.0) Neutrophils (%) (Auto) 83.4 % (16.0-70.0) 85.5 % (16.0-70.0) Lymphocytes (%) (Auto) 1.1 % (9.0-44.0) 3.5 % (9.0-44.0) Monocytes (%) (Auto) 13.3 % (0.0-8.0) 8.1 % (0.0-8.0) Neutrophils # (Auto) 19.0 TH/MM3 (1.8-7.7) 12.5 TH/MM3 (1.8-7.7) Lymphocytes # (Auto) 0.3 TH/MM3 (1.0-4.8) 0.5 TH/MM3 (1.0-4.8) Monocytes # (Auto) 3.0 TH/MM3 (0-0.9) 1.2 TH/MM3 (0-0.9) Eosinophils # (Auto) 0.5 TH/MM3 (0-0.4) Neutrophils % (Manual) 73 % (16-70) 81 % (16-70) Band Neutrophils % 18 % (0-6) 9 % (0-6) Lymphocytes % 3 % (9-44) 7 % (9-44) Neutrophils # (Manual) 20.7 TH/MM3 (1.8-7.7) 13.3 TH/MM3 (1.8-7.7) Nucleated Red Blood Cells 16 /100 WBC (0-0) 8 /100 WBC (0-0) Target Cells 1+ (NORMAL) 2+ (NORMAL) Blood Urea Nitrogen 38 MG/DL (7-18) 55 MG/DL (7-18) 48 MG/DL (7-18) Creatinine 6.43 MG/DL (0.60-1.30) 8.30 MG/DL (0.60-1.30) 6.32 MG/DL (0.60-1.30) Calcium Level 7.5 MG/DL (8.5-10.1) 8.0 MG/DL (8.5-10.1) Sodium Level 131 MEQ/L (136-145) 131 MEQ/L (136-145) 134 MEQ/L (136-145) Chloride Level 91 MEQ/L (98-107) 93 MEQ/L (98-107) 94 MEQ/L (98-107) Estimat Glomerular Filtration Rate 13 ML/MIN (>89) 9 ML/MIN (>89) 13 ML/MIN (>89) Potassium Level 2.9 MEQ/L (3.5-5.1) Imaging Last Impressions Chest X-Ray 01/24/17 0000 Signed Impressions: Service Date/Time: Tuesday, January 24, 2017 08:22 - CONCLUSION: 1. Bibasilar streakiness consistent with atelectasis and/or mild infiltrates. Clinical correlation is recommended. Ezio Caro MD Catheter Placement X-Ray 01/21/17 0000 Signed Impressions: Service Date/Time: December 12:57 - CONCLUSION: Uncomplicated Dialysis catheter placement as above. Shaquille García MD Hand X-Ray 01/19/17 0000 Signed Impressions: Service Date/Time: Thursday, January 19, 2017 21:12 - CONCLUSION: No acute findings Torito Barajas MD Head CT 01/16/17 0000 Signed Impressions: Service Date/Time: Monday, January 16, 2017 21:27 - CONCLUSION: Normal examination. No significant change has occurred. Gilmar Benton MD Abdomen/Pelvis CT 01/16/17 0000 Signed Impressions: Service Date/Time: Monday, January 16, 2017 21:31 - CONCLUSION: Cholelithiasis without cholecystitis. Surgical absence the spleen. Otherwise negative abdomen Gilmar Benton MD PE at Discharge Gen.: Sleeping in bed Head: Normocephalic. Atraumatic. EENT: Pupils equal round and reactive to light. Nose without drainage. Airway intact. Throat without injection. Cardiovascular: Tachycardic. No murmurs, rubs or gallops. Respiratory: Lungs clear to auscultation bilaterally. No wheezes or rhonchi. Abdomen: Soft, nontender, nondistended. No peritoneal signs. PD catheter in place, no signs of surrounding erythema or purulent material. Musculoskeletal: No gross deformities. Skin: No obvious rashes or erythema. PermCath in place. Clean without surrounding erythema or purulence. Neuro: Sensory and motor grossly intact. Cranial nerves II through XII grossly intact. Pt update on day of discharge Follow-up for ESRD, possible early pneumonia. Patient is currently doing well. Facial swelling improved. No fever, chills. Electrolytes are improved as well. Hospital Course 26-year-old male with a PMH of HIV (Last CD4 451 on 08/09/14), Seizure Disorder, CKD, Lymphoma and Non-Compliance who presented with multiple complaints including headache, abdominal pain, and generalized weakness Probable pneumonia - patient could not tolerate cefepime. Infectious disease consultation indicated probable early pneumonia. - Continue Levaquin by mouth. We'll plan on giving Levaquin for equivalent of 6-7 day duration. Drug allergy - possibly due to Cefepime. - Patient is currently on Prednisone 20mg BID. We will continue this for 3 more days. - Benadryl PO for itching. Abdominal pain: Mild. Epigastric. Lipase and LFTs within normal limits. CT abdomen shows cholelithiasis without cholecystitis, s/p splenectomy, otherwise no acute process. Conginue H2 markell and Magic mouthwash. EGD on 01/19/2017 showed only mild gastritis. Seizure Disorder: Chronic. Reported "mini seizures" as off medications, seen in ER on 12/24/16 for similar complaints, however LEFT AMA. No seizure activity during admission. Seizure Precautions, resumed home Keppra. Ativan prn if needed. CT Head w/ no acute findings. End stage renal disease - Patient is currently receiving hemodialysis using Perm-Cath - S/p PD placement 01/21 per nephro - HD, TTS at 4 pm - will discharge patient home with home health - Hypokalemia - K+ was 2.9 yesterday. We gave him oral KCL.K+ is improved to 4.2. HIV: Last CD4 451 on 08/09/14. Reports compliance w/ HAART, however unsure of recent CD4. Continue home HAART medications. Right hand pain - improved. Images unremarkable. DVT Prophylaxis: Heparin Pt Condition on Discharge: Stable Discharge Disposition: Disch w/ Home Health Serv Discharge Time: > 30 minutes Discharge Instructions DIET: Follow Instructions for: Dialysis Diet Activities you can perform: Regular-No Restrictions Follow up Referrals: Gastroenterology - 2 Weeks Nephrology - 3-5 Days PCP Follow-up - 2-3 Days New Medications: Hydrocodone-Acetaminophen ([employer]) 5-325 mg Tab 1 TAB PO Q6H PRN for PAIN, #10 TAB 0 Refills Famotidine (Famotidine) 20 Mg Tab 20 MG PO HS for gerd, #30 TAB Prednisone (Prednisone) 20 Mg Tab 20 MG PO BID for Inflammation, #6 TAB Continued Medications: Abacavir (Ziagen) 300 Mg Tab 300 MG PO BID for Mgmt Viral Infection, #60 TAB 5 Refills (This prescription has been renewed) Hazardous agent; use appropriate precautions for handling & disposal. Fosamprenavir (Lexiva) 700 Mg Tab 1 TAB PO BID for Infection, #60 TAB 5 Refills (This prescription has been renewed) Lamivudine (Epivir) 150 Mg Tab 150 MG PO DAILY for Mgmt Viral Infection, #9 TAB 5 Refills (This prescription has been renewed) *Fill this 5 day prescription first and begin taking Epivir 12 hours after the first dose received in the Emergency Department as prescribed.* Levetiracetam (Keppra) 250 Mg Tab 750 MG PO Q12HR for Seizure Control, #60 TAB 3 Refills (This prescription has been renewed) Ritonavir (Norvir) 100 Mg Cap 100 MG PO BID for Mgmt Viral Infection, #180 CAP 5 Refills (This prescription has been renewed) Mehreen Branch DO Jan 28, 2017 00:22
== END 2017-01-27 17:11 | disposition home health service (06) | DRG 673 ==
LOC: NEPD 21:00 → NEDA 22:32 → NEPGCP 01-17 01:00 → OBSVTOIN 01-17 08:18 → N06A 01-17 21:28
PROVIDERS: ADMIT Hospitalist; ATTEND Hospitalist
PROC: 5A1D70Z Performance of Urinary Filtration, Intermittent, Less than 6 Hours Per Day (ICD-10-PCS; 2017-01-17)
PROC: 05HM33Z Insertion of Infusion Device into Right Internal Jugular Vein, Percutaneous Approach (ICD-10-PCS; 2017-01-17)
PROC: 0DB68ZX Excision of Stomach, Via Natural or Artificial Opening Endoscopic, Diagnostic (ICD-10-PCS; 2017-01-19)
PROC: 0DBK8ZX Excision of Ascending Colon, Via Natural or Artificial Opening Endoscopic, Diagnostic (ICD-10-PCS; 2017-01-20)
PROC: 05HM33Z Insertion of Infusion Device into Right Internal Jugular Vein, Percutaneous Approach (ICD-10-PCS; 2017-01-22)
PROC: 0WHG43Z Insertion of Infusion Device into Peritoneal Cavity, Percutaneous Endoscopic Approach (ICD-10-PCS; principal; 2017-01-22 09:18)
DX: N17.9 Acute kidney failure, unspecified (principal); B20 Human immunodeficiency virus [HIV] disease; E87.2 Acidosis; J18.9 Pneumonia, unspecified organism; I12.0 Hypertensive chronic kidney disease with stage 5 chronic kidney disease or end stage renal disease; N18.6 End stage renal disease; E83.51 Hypocalcemia; G40.909 Epilepsy, unspecified, not intractable, without status epilepticus; E86.0 Dehydration; N29 Other disorders of kidney and ureter in diseases classified elsewhere; R00.0 Tachycardia, unspecified; Z90.81 Acquired absence of spleen; K80.20 Calculus of gallbladder without cholecystitis without obstruction; Z89.512 Acquired absence of left leg below knee; Z89.511 Acquired absence of right leg below knee; Z89.212 Acquired absence of left upper limb below elbow; E87.6 Hypokalemia; Z91.19 Patient's noncompliance with other medical treatment and regimen; Z91.14 Patient's other noncompliance with medication regimen; I73.9 Peripheral vascular disease, unspecified; F12.90 Cannabis use, unspecified, uncomplicated; Z85.72 Personal history of non-Hodgkin lymphomas; R50.9 Fever, unspecified; K29.70 Gastritis, unspecified, without bleeding; K63.5 Polyp of colon; D63.1 Anemia in chronic kidney disease; M79.641 Pain in right hand
CPT/HCPCS: 36415; 36556; 36558; 70450; 71010; 73130; 74176; 76937; 77001; 80048; 80053; 80074; 80202; 80307; 81001; 82010; 82550; 82552; 82728; 82805; 83540; 83550; 83605; 83690; 83735; 84100; 84132; 85007; 85025; 85027; 85610; 85730; 87040; 88305; 90935; 93005; 96361; 96374; 96375; 99152; 99153; C1750; C1752; C1769; C1894; G0378; J0131; J0610; J0692; J1100; J1170; J1200; J1580; J1644; J2250; J2270; J2370; J2405; J2710; J2765; J3010; J3370; J3480; J7030; J7040; J7050; J7512; Q4081

== ENCOUNTER 2017-02-02 11:57 | Inpatient (IN) | payer MEDICARE, OTHER ==
[~2017-02-02 11:57] MED LIST changes: +FAMO20TA2 PO; -LEVE500 PO; +NORC5TAB PO; +PRED20 PO
[2017-02-02 12:07] VITALS: BP 123/92; PULSE 92; RESP 16; TEMP 96.2; O2SAT 95
--- NOTE | 2017-02-02 13:36 | PD ---
HPI Chief Complaint: Abdominal Pain Time Seen by Provider: 13:18 Travel History International Travel<30 days: No Contact w/Intl Traveler<30days: No Traveled to known affect area: No History of Present Illness HPI 26-year-old male with multiple medical problems including HIV, lymphoma, splenectomy and end-stage renal disease with hemodialysis dependent came to the emergency room with history of pain in his recently inserted peritoneal and PD shunt locations. Patient has had left upper extremity and bilateral AKA. This has happened in the past. He was recently discharged from the hospital about one week ago. At that time he had peritoneal dialysis catheter placement during the admission. Patient was slightly hypothermic in triage. He is awake and answering questions but really not very forthcoming with the answers. He says "everything is there in my chart". Patient says his last dialysis was last Thursday and tomorrow will be his next dialysis. COUNT INCLUDES THE [facility] Past Medical History Narrative Medical List of his past medical, surgical, social and family history is reviewed from the nursing note. Autoimmune Disease: Yes Blood Disorders: Yes (bone marrow transplant) Anxiety: No Depression: No Cancer: Yes (HX OF LYMPHOMA) Cardiovascular Problems: No Chemotherapy: No Cerebrovascular Accident: No Diminished Hearing: No Endocrine: No Gastrointestinal Disorders: Yes Genitourinary: Yes Headaches: Yes Immune Disorder: Yes (HIV) Kidney Stones: No Musculoskeletal: No Neurologic: Yes Psychiatric: No Reproductive: No Respiratory: No Migraines: No Radiation Therapy: No Renal Failure: Yes Seizures: Yes Past Surgical History Abdominal Surgery: Yes (SPLEENECTOMY) AICD: No Arteriovenous Shunt: No Body Medical Devices: prostetics bilateral legs Cardiac Surgery: No Ear Surgery: No Endocrine Surgery: No Eye Surgery: No Genitourinary Surgery: No Gynecologic Surgery: No Insulin Pump: No Joint Replacement: No Neurologic Surgery: No Oral Surgery: No Pacemaker: No Thoracic Surgery: No Other Surgery: Yes (BILATERAL LOWER LEG AND LEFT ARM AMPUTATION) Social History Alcohol Use: Yes (OCC) Tobacco Use: No Substance Use: Yes (SMOKES MARIJUANA, FLACCA) Allergies-Medications (Allergen,Severity, Reaction): Coded Allergies: amoxicillin (Unverified Allergy, Severe, rash all over, 02/02/17) penicillin G (Unverified Allergy, Severe, Anaphylaxis, 02/02/17) Comments List of his allergies reviewed from the nursing note. Reported Meds & Prescriptions Reported Meds & Active Scripts Active Norvir (Ritonavir) 100 Mg Cap 100 Mg PO BID Epivir (Lamivudine) 150 Mg Tab 150 Mg PO DAILY *Fill this 5 day prescription first and begin taking Epivir 12 hours after the first dose received in the Emergency Department as prescribed.* Lexiva (Fosamprenavir Calcium) 700 Mg Tab 1 Tab PO BID Ziagen (Abacavir Sulfate) 300 Mg Tab 300 Mg PO BID Hazardous agent; use appropriate precautions for handling & disposal. Keppra (Levetiracetam) 250 Mg Tab 750 Mg PO Q12HR Prednisone 20 Mg Tab 20 Mg PO BID [place] (Hydrocodone-Acetaminophen) 5-325 mg Tab 1 Tab PO Q6H PRN Famotidine 20 Mg Tab 20 Mg PO HS Narrative Medication List of his home medications reviewed from the nursing note. Review of Systems Except as stated in HPI: all other systems reviewed are Neg Physical Exam Narrative GENERAL: Awake, alert, no obvious distress SKIN: Focused skin assessment warm/dry. Dried pealing skin HEAD: Atraumatic. Normocephalic. EYES: Pupils equal and round. No scleral icterus. No injection or drainage. ENT: No nasal bleeding or discharge. Mucous membranes pink and moist. NECK: Trachea midline. No JVD. CARDIOVASCULAR: Regular rate and rhythm. No murmur appreciated. RESPIRATORY: No accessory muscle use. Clear to auscultation. Breath sounds equal bilaterally. GASTROINTESTINAL: Abdomen soft, non-tender, nondistended. Hepatic and splenic margins not palpable. MUSCULOSKELETAL: No obvious deformities. No clubbing. No cyanosis. No edema. 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 No obvious cranial nerve deficits. Motor grossly within normal limits. Normal speech. PSYCHIATRIC: Appropriate mood and affect; insight and judgment normal. Data Data Last Documented VS Orders Orders Complete Blood Count With Diff (02/02/17 13:40) Basic Metabolic Panel (Bmp) (02/02/17 13:40) Acetamin-Hydrocod 325-5 Mg ([place] 5-325 (02/02/17 13:45) Lactic Acid (02/02/17 15:09) Blood Culture (02/02/17 15:09) Sodium Chlor 0.9% 1000 Ml Inj (Ns 1000 M (02/02/17 15:15) Ceftriaxone Inj (Rocephin Inj) (02/02/17 16:30) Admit Order (Ed Use Only) (02/02/17 17:03) Labs Laboratory Tests Test 02/02/17 14:20 02/02/17 15:30 White Blood Count 18.4 TH/MM3 Red Blood Count 3.39 MIL/MM3 Hemoglobin 8.5 GM/DL Hematocrit 27.8 % Mean Corpuscular Volume 82.1 FL Mean Corpuscular Hemoglobin 25.2 PG Mean Corpuscular Hemoglobin Concent 30.7 % Red Cell Distribution Width 15.3 % Platelet Count 215 TH/MM3 Mean Platelet Volume 10.5 FL Neutrophils (%) (Auto) 57.5 % Lymphocytes (%) (Auto) 31.2 % Monocytes (%) (Auto) 7.6 % Eosinophils (%) (Auto) 2.3 % Basophils (%) (Auto) 1.4 % Neutrophils # (Auto) 10.5 TH/MM3 Lymphocytes # (Auto) 5.7 TH/MM3 Monocytes # (Auto) 1.4 TH/MM3 Eosinophils # (Auto) 0.4 TH/MM3 Basophils # (Auto) 0.3 TH/MM3 CBC Comment AUTO DIFF Differential Total Cells Counted 100 Neutrophils % (Manual) 62 % Lymphocytes % 23 % Monocytes % 9 % Eosinophils % 3 % Neutrophils # (Manual) 12.0 TH/MM3 Metamyelocytes 2 % Myelocytes 1 % Nucleated Red Blood Cells 164 /100 WBC Differential Comment FINAL DIFF MANUAL Platelet Estimate NORMAL Platelet Morphology Comment ENLARGED Polychromasia 4.0 % Target Cells 1+ Ovalocytes 1+ Keratocytes OCC Blood Urea Nitrogen 59 MG/DL Creatinine 6.59 MG/DL Random Glucose 87 MG/DL Calcium Level 7.9 MG/DL Sodium Level 134 MEQ/L Potassium Level 5.4 MEQ/L Chloride Level 100 MEQ/L Carbon Dioxide Level 20.2 MEQ/L Anion Gap 14 MEQ/L Estimat Glomerular Filtration Rate 12 ML/MIN Lactic Acid Level 0.6 mmol/L [facility] Medical Decision Making Medical Screen Exam Complete: Yes Emergency Medical Condition: Yes Medical Record Reviewed: Yes Differential Diagnosis Electrolyte abnormality, dehydration, sepsis Narrative Course 4:23 PM blood test results of back and patient has leukocytosis. BMP suggestive of end-stage renal disease with elevated BUN and creatinine. Potassium is within acceptable limits. Lactic acid is within normal limit. Given the leukocytosis, splenectomy and indwelling lines and catheter I've given him a dose of Rocephin for risk of encapsulated bacteremia. I would prefer to admit this patient at least for observation. Repeat blood test is done and cultures are back. Awaiting for the hospitalist to call back. Procedures EKG Prior to Arrival: No Diagnosis Primary Impression: Leukocytosis Qualified Codes: D72.829 - Elevated white blood cell count, unspecified Additional Impressions: End stage kidney disease Dependent on hemodialysis Generalized pain Admitting Information Admitting Physician Requests: Admit Patricia Rojas MD Feb 02, 2017 13:36
[2017-02-02] MEDS ORDERED: ACETAMINOPHEN/HYDROcodone 325 MG/5 MG TAB PO ONE (13:45)
[2017-02-02 14:35] LABS: AUTOMATED NEUTROPHIL # 10.5 TH/MM3 (1.8-7.7); BASOPHIL # 0.3 TH/MM3 (0-0.2); BASOPHIL % 1.4 % (0.0-2.0); EOSINOPHIL # 0.4 TH/MM3 (0-0.4); EOSINOPHIL % 2.3 % (0.0-4.0); HEMATOCRIT 27.8 % (39.0-51.0); LYMPH % 31.2 % (9.0-44.0); LYMPHOCYTE # 5.7 TH/MM3 (1.0-4.8); MEAN CELL VOLUME 82.1 FL (80.0-100.0); MEAN CORPUSCULAR HEMOGLOBIN 25.2 PG (27.0-34.0); MEAN CORPUSCULAR HGB CONC 30.7 % (32.0-36.0); MONO % 7.6 % (0.0-8.0); NEUT % 57.5 % (16.0-70.0); PLATELET COUNT 215 TH/MM3 (150-450); RED BLOOD COUNT 3.39 MIL/MM3 (4.50-5.90); RED CELL DISTRIBUTION WIDTH 15.3 % (11.6-17.2); WHITE BLOOD COUNT 18.4 TH/MM3 (4.0-11.0)
[2017-02-02 14:39] LABS: HEMO FLAGS AUTO DIFF
[2017-02-02 14:51] LABS: BICARBONATE 20.2 MEQ/L (21.0-32.0); POTASSIUM 5.4 MEQ/L (3.5-5.1)
[2017-02-02] MEDS ORDERED: SODIUM CHLOR 0.9% 1000 ML INJ 1,000 ML IV ONE (15:15)
[2017-02-02 15:28] LABS: CORRECTED NUCLEATED RBC 164 /100 WBC (0-0); EOSINOPHILS 3 % (0-4); METAMYELOCYTES 2 % (0-1); MYELOCYTES 1 % (0-0); POLYS (SEG NEUTROPHILS) 62 % (16-70); WBC DIFF SAMPLE 100
[2017-02-02 15:30] VITALS: BP 107/57; PULSE 87; RESP 16; O2SAT 98
[2017-02-02 15:30] LABS: SCAN/DIFF FINAL DIFF MANUAL
[2017-02-02 15:31] LABS: PLATELET ESTIMATE SMEAR NORMAL (NORMAL); PLATELET MORPHOLOGY ENLARGED (NORMAL)
[2017-02-02 15:33] LABS: OVALOCYTES 1+ (NORMAL); TARGET CELLS 1+ (NORMAL)
[2017-02-02 15:34] LABS: KERATOCYTES OCC (NORMAL)
[2017-02-02] MEDS ORDERED: cefTRIAXone INJ 1,000 MG in SODIUM CHLORIDE 0.9% INJ 100 ML IV ONE (16:30)
[2017-02-02] MEDS ORDERED: SODIUM POLYSTYRENE SULFONATE SUSP 15 GM/60 ML CUP PO ONE (17:30)
[2017-02-02 17:51] VITALS: BP 114/62; PULSE 82; RESP 14
[2017-02-02] MEDS ORDERED: SENNOSIDES 8.6 MG TAB PO PRN (18:15)
[2017-02-02] MEDS ORDERED: SODIUM CHLORIDE 0.9% FLUSH 10 ML FLUSH IV FLUSH PRN ×2 (18:15→22:45)
[2017-02-02] MEDS ORDERED: MAGNESIUM HYDROXIDE SUSP 30 ML CUP PO PRN (18:15)
[2017-02-02] MEDS ORDERED: ONDANSETRON HCL 4 MG/2 ML VIAL IVP PRN (18:15)
[2017-02-02] MEDS ORDERED: LACTULOSE SYRUP 20 GM/30 ML CUP PO PRN (18:15)
[2017-02-02] MEDS ORDERED: BISACODYL 10 MG SUPP RECTAL PRN (18:15)
[2017-02-02] MEDS ORDERED: NALOXONE HCL 0.4 MG/ML AMP IV PUSH PRN ×2 (18:15→22:30)
[2017-02-02] MEDS ORDERED: ACETAMINOPHEN 325 MG TAB PO PRN ×3 (18:15→22:45)
--- NOTE | 2017-02-02 18:30 | RADRPT ---
EXAM DATE/TIME: 02/02/2017 18:14 [place] COMPARISON: CHEST SINGLE AP, January 24, 2017, 8:22. INDICATIONS : Fever. MEDICAL HISTORY : Lymphoma. HIV. SURGICAL HISTORY : Splenectomy. Perm cath placement. ENCOUNTER: Initial ACUITY: 1 day PAIN SCORE: 0/10 LOCATION: Bilateral chest FINDINGS: A single view of the chest demonstrates the lungs to be symmetrically aerated without evidence of mas s, infiltrate or effusion. The cardiomediastinal contours are unremarkable. Osseous structures are intact. Right IJ dialysis type catheter with the tip projecting over the central venous system. CONCLUSION: 1. Right IJ tunneled dialysis catheter with the tip projecting over the central venous system. 2. Lungs are clear. Bruce Romo MD on February 02, 2017 at 18:27 Board Certified Radiologist. This report was verified electronically.
[2017-02-02 20:00] VITALS: O2SAT 96
[2017-02-02] MEDS ORDERED: SODIUM CHLOR 0.9% 1000 ML INJ 1,000 ML IV SCH (20:00)
[2017-02-02] MEDS: HEPARIN SODIUM - SQ 10,000 UNITS/ML VIAL SQ SCH (20:34)
[2017-02-02] MEDS: LINEZOLID 600 MG TAB PO SCH (20:34)
[2017-02-02] MEDS: SODIUM CHLORIDE 0.9% FLUSH 10 ML FLUSH IV FLUSH SCH (20:34)
[2017-02-02 22:22] VITALS: BP 108/59; PULSE 130; RESP 20; TEMP 97.6; O2SAT 96
[2017-02-02 22:23] VITALS: BP 150/68; PULSE 65; RESP 18; TEMP 97.5; O2SAT 96
[2017-02-02] MEDS ORDERED: MORPHINE SULFATE 4 MG/ML INJ IV PUSH PRN (22:30)
--- NOTE | 2017-02-02 22:31 | HHI.HP ---
HPI Service Family Medicine Primary Care Physician No Primary Care Physician Admission Diagnosis leukocytosis, SIRS, ESRD Diagnoses: International Travel<30 Days: No Contact w/Intl Traveler<30days: No Known Affected Area: No History of Present Illness 26 year old male with a history of ESRD, HIV, lymphoma, status post splenectomy. He recently had PermCath and peritoneal dialysis catheters placed for dialysis. He started dialysis on January 23 and receives it every TTS at [facility]. The plan is eventually for peritoneal dialysis. He presents to the ED with pain around his Vascath on his right upper chest and at the site of his peritoneal dialysis catheter. He also has pain in the lower abdomen that is mild and crampy. He has mild pharyngeal pain. His PermCath was placed on January 19. He feels like he moved the wrong way and it started to hurt last night. He's also had coughing for the past couple days. He reports no fevers or night sweats at home. He's had bouts of diarrhea since January 27. He is complaining of some dysuria as well. He has chronic severe pains in his legs. He uses prosthetics due to bilateral amputations when he was 12 done for lymphoma. He has no blurry vision, headaches, neck stiffness, chest pain, shortness of breath. He has significantly dry and peeling skin and cracked and chapped lips that he states is from cefepime from his last admission. 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 Solis. He is taking his antiretrovirals consistently per his report but does not know his most recent CD4 count. Review of Systems Constitutional: COMPLAINS OF: Weight loss, Change in appetite, DENIES: Diaphoretic episodes, Fatigue, Fever, Weight gain, Night Sweats Endocrine: DENIES: Polydipsia, Polyuria, Polyphagia Eyes: DENIES: Blurred vision, Vision loss, Double Vision Ears, nose, mouth, throat: COMPLAINS OF: Nasal discharge, DENIES: Running Nose Respiratory: COMPLAINS OF: Cough, DENIES: Wheezing, Sputum production, Shortness of breath Cardiovascular: DENIES: Chest pain Gastrointestinal: COMPLAINS OF: Diarrhea, Nausea, DENIES: Abdominal pain, Bloody stools, Vomiting Genitourinary: COMPLAINS OF: Dysuria, DENIES: Urinary frequency, Urinary incontinence Musculoskeletal: DENIES: Joint pain, Muscle aches, Neck pain Integumentary: DENIES: Rash Hematologic/lymphatic: DENIES: Lymphadenopathy Immunologic/allergic: DENIES: Eczema Neurologic: DENIES: Headache, Paresthesias Psychiatric: DENIES: Anxiety, Depression Past Family Social History Past Medical History ESRD Recently started dialysis PermCath and peritoneal dialysis catheter History of Lymphoma Bilateral amputations of lower extremities and left upper extremity HIV, on antiretrovirals consistently per his report Past Surgical History Age 12: bilateral lower and left upper extremity amputations Reported Medications Reported Meds & Active Scripts Active Norvir (Ritonavir) 100 Mg Cap 100 Mg PO BID Epivir (Lamivudine) 150 Mg Tab 150 Mg PO DAILY *Fill this 5 day prescription first and begin taking Epivir 12 hours after the first dose received in the Emergency Department as prescribed.* Lexiva (Fosamprenavir Calcium) 700 Mg Tab 1 Tab PO BID Ziagen (Abacavir Sulfate) 300 Mg Tab 300 Mg PO BID Hazardous agent; use appropriate precautions for handling & disposal. Keppra (Levetiracetam) 250 Mg Tab 750 Mg PO Q12HR Prednisone 20 Mg Tab 20 Mg PO BID [place] (Hydrocodone-Acetaminophen) 5-325 mg Tab 1 Tab PO Q6H PRN Famotidine 20 Mg Tab 20 Mg PO HS Allergies: Coded Allergies: amoxicillin (Unverified Allergy, Severe, rash all over, 02/02/17) penicillin G (Unverified Allergy, Severe, Anaphylaxis, 02/02/17) Active Ordered Medications Inpatient Medications Abacavir Sulfate (Ziagen) 300 mg BID PO ; Start 02/03/17 at 09:00 Acetaminophen (Tylenol) 650 mg UNSCH PRN PO forheadache,pain1-10,temp>101F; Start 02/02/17 at 22:45 Acetaminophen/ Hydrocodone Bitart ([place] 5-325 Mg) 1 tab ONCE ONCE PO Last administered on 02/02/17t 14:05; Start 02/02/17 at 13:45; Stop 02/02/17 at 13:46 ; Status DC Albumin Human 100 ml @ 60 mls/hr UNSCH PRN IV WITH DIALYSIS; Start 02/02/17 at 22:45 Bisacodyl (Dulcolax Supp) 10 mg DAILY PRN RECTAL SEVERE CONSITIPATION; Start 02/02/17 at 18:15 Ceftriaxone Sodium 1000 mg/ Sodium Chloride 100 ml @ 200 mls/hr Q24H IV ; Start 02/03/17 at 16:00 Clonidine (Catapres) 0.1 mg UNSCH PRN PO for BP > 180/100 X 2 readings; Start 02/02/17 at 22:45 Diphenhydramine HCl (Benadryl) 25 mg UNSCH PRN PO for hives/itching/anaphylaxis ; Start 02/02/17 at 22:45 Epoetin Jesse (Epogen Inj) 10,000 units UNSCH PRN IV PUSH WITH DIALYSIS; Start 02/02/17 at 22:45 Famotidine (Pepcid) 20 mg HS PO ; Start 02/03/17 at 21:00 Fosamprenavir Calcium (Lexiva) 700 mg BID PO ; Start 02/03/17 at 09:00 Gelatin (Gelfoam 12 Mm/7 Mm Top) 1 foam UNSCH PRN TOP SEE LABEL COMMENTS; Start 02/02/17 at 22:45 Gentamicin Sulfate (Gentamicin (Dialysis) Inj) 20 mg UNSCH PRN OTHER WITH DIALYSIS; Start 02/02/17 at 22:45 Heparin Sodium (Porcine) (Heparin Inj) UNSCH PRN .XX WITH DIALYSIS; Start 02/02/17 at 22:45 Lactulose (Lactulose Liq) 30 ml DAILY PRN PO SEVERE CONSITIPATION; Start at 18:15 Lamivudine (Epivir) 150 mg DAILY PO ; Start 02/03/17 at 09:00 Levetriacetam (Keppra) 750 mg Q12HR PO ; Start 02/03/17 at 09:00 Linezolid (Zyvox) 600 mg Q12H PO Last administered on 02/02/17t 20:34; Start 02/02/17 at 20:00 Magnesium Hydroxide (Milk Of Magnesia Liq) 30 ml Q12H PRN PO Mild constipation ; Start 02/02/17 at 18:15 Mannitol (Mannitol Inj) 12.5 gm UNSCH PRN IV WITH DIALYSIS; Start 02/02/17 at 22:45 Morphine Sulfate (Morphine Inj) 4 mg Q3H PRN IV PUSH BREAKTHROUGH PAIN; Start 02/02/17 at 22:30 Naloxone HCl (Narcan Inj) 0.4 mg UNSCH PRN IV PUSH SEE LABEL COMMENTS; Start 02/02/17 at 22:30 Nitroglycerin (Nitrostat Sl) 0.4 mg UNSCH PRN SL CHEST PAIN; Start 02/02/17 at 22:45 Ondansetron HCl (Zofran Inj) 4 mg UNSCH PRN IV PUSH WITH DIALYSIS; Start at 22:45 Oxycodone/ Acetaminophen (Percocet 5-325 Mg) 1 tab Q6H PRN PO PAIN SCALE 3 TO 5; Start 02/02/17 at 22:30 Oxycodone/ Acetaminophen (Percocet 10-325 Mg) 1 tab Q6H PRN PO PAIN SCALE 6 TO 10 Last administered on 02/02/17 22:59; Start 02/02/17 at 22:30 Ritonavir (Norvir) 100 mg BID PO ; Start 02/03/17 at 09:00 Senna/Docusate Sodium (Janeen-Colace) 1 tab BID PO ; Start 02/02/17 at 21:00 Sennosides (Senokot) 17.2 mg Q12H PRN PO Moderate constipation; Start 02/02/17 at 18:15 Sodium Polystyrene Sulfonate (Kayexalate Liq) 15 gm ONCE ONCE PO Last administered on 02/02/17 19:28; Start 02/02/17 at 17:30; Stop 02/02/17 at 17:31 ; Status DC Sodium Chloride (NS Flush) 5 ml UNSCH PRN IV FLUSH WITH DIALYSIS; Start at 22:45 Family History Father: healthy Mother: of cancer unknown type Social History Uses THC Lives with grandmother and aunt Physical Exam Vital Signs Vital Signs Date Time Temp Pulse Resp B/P (MAP) Pulse Ox O2 Delivery O2 Flow Rate FiO2 02/02/17 22:22 97.6 130 20 108/59 (75) 96 02/02/17 19:23 02/02/17 17:51 82 14 114/62 (79) 02/02/17 15:30 87 16 107/57 (74) 98 Room Air 02/02/17 12:07 96.2 92 16 123/92 (102) 95 Physical Exam General: Thin male in no distress Skin: Very dry, peeling skin, chapped lips, stage 1 ulceration of amputated legs at the ends HEENT: Normocephalic, no conjunctivitis, mild nasal congestion, normal pharynx Neck: No stiffness, fair range of motion CV: RRR, no murmurs, rubs, or gallops, normal cap refill Lungs: Clear to auscultation bilaterally Abdomen: mildly tender in lower abdomen, normal bowel sounds Ext: Left upper and bilateral lower amputations Neuro: Awake, alert : Has PermCath and peritoneal catheter in place, no purulent drainage, dirty dressing covering the peritoneal catheter does not appear to have been drained recently, tender to palpation along the PermCath site, no surround erythema Laboratory Laboratory Tests Test 02/02/17 14:20 02/02/17 15:30 White Blood Count 18.4 Red Blood Count 3.39 Hemoglobin 8.5 Hematocrit 27.8 Mean Corpuscular Volume 82.1 Mean Corpuscular Hemoglobin 25.2 Mean Corpuscular Hemoglobin Concent 30.7 Red Cell Distribution Width 15.3 Platelet Count 215 Mean Platelet Volume 10.5 Neutrophils (%) (Auto) 57.5 Lymphocytes (%) (Auto) 31.2 Monocytes (%) (Auto) 7.6 Eosinophils (%) (Auto) 2.3 Basophils (%) (Auto) 1.4 Neutrophils # (Auto) 10.5 Lymphocytes # (Auto) 5.7 Monocytes # (Auto) 1.4 Eosinophils # (Auto) 0.4 Basophils # (Auto) 0.3 CBC Comment AUTO DIFF Differential Total Cells Counted 100 Neutrophils % (Manual) 62 Lymphocytes % 23 Monocytes % 9 Eosinophils % 3 Neutrophils # (Manual) 12.0 Metamyelocytes 2 Myelocytes 1 Nucleated Red Blood Cells 164 Differential Comment FINAL DIFF MANUAL Platelet Estimate NORMAL Platelet Morphology Comment ENLARGED Polychromasia 4.0 Target Cells 1+ Ovalocytes 1+ Keratocytes OCC Blood Urea Nitrogen 59 Creatinine 6.59 Random Glucose 87 Calcium Level 7.9 Sodium Level 134 Potassium Level 5.4 Chloride Level 100 Carbon Dioxide Level 20.2 Anion Gap 14 Estimat Glomerular Filtration Rate 12 Lactic Acid Level 0.6 Date/Time Source Procedure Growth Status 02/02/17 15:30 Blood Peripheral Aerobic Blood Culture Pending Received 02/02/17 15:30 Blood Peripheral Anaerobic Blood Culture Pending Received Result Diagram: 02/02/17 1420 02/02/17 1420 Imaging Last 72 hours Impressions Chest X-Ray 02/02/17 0000 Signed Impressions: Service Date/Time: Thursday, February 02, 2017 18:14 - CONCLUSION: 1. Right IJ tunneled dialysis catheter with the tip projecting over the central venous system. 2. Lungs are clear. Bruce Romo MD Septic Shock Reassessment Heart: Other (tachycardia) Lungs: Clear Skin: Warm Capillary Refill: <2 seconds Caprini VTE Risk Assessment Caprini VTE Risk Assessment: Mod/High Risk (score >= 2) Caprini Risk Assessment Model Point Value = 1 Point Value = 2 Point Value = 3 Point Value = 5 Age 41-60 Minor surgery BMI > 25 kg/m2 Swollen legs Varicose veins or History of unexplained or recurrent spontaneous Oral contraceptives or hormone replacement Sepsis (< 1 month) Serious lung disease, including pneumonia (< 1 month) Abnormal pulmonary function Acute myocardial infarction Congestive heart failure (< 1 month) History of inflammatory bowel disease Medical patient at bed rest Age 61-74 Arthroscopic surgery Major open surgery (> 45 min) Laparoscopic surgery (> 45 min) Malignancy Confined to bed (> 72 hours) Immobilizing plaster cast Central venous access Age >= 75 History of VTE Family history of VTE Factor V Leiden Prothrombin [id number] Lupus anticoagulant Anticardiolipin antibodies Elevated serum homocysteine Heparin-induced thrombocytopenia Other congenital or acquired thrombophilia Stroke (< 1 month) Elective arthroplasty Hip, pelvis, or leg fracture Acute spinal cord injury (< 1 month) Prophylaxis Regimen Total Risk Factor Score Risk Level Prophylaxis Regimen 0-1 Low Early ambulation 2 Moderate Order ONE of the following: *Sequential Compression Device (SCD) *Heparin 5000 units SQ BID 3-4 Higher Order ONE of the following medications: *Heparin 5000 units SQ TID *Enoxaparin/Lovenox 40 mg SQ daily (WT < 150 kg, CrCl > 30 mL/min) *Enoxaparin/Lovenox 30 mg SQ daily (WT < 150 kg, CrCl > 10-29 mL/min) *Enoxaparin/Lovenox 30 mg SQ BID (WT < 150 kg, CrCl > 30 mL/min) AND/OR *Sequential Compression Device (SCD) 5 or more Highest Order ONE of the following medications: *Heparin 5000 units SQ TID (Preferred with Epidurals) *Enoxaparin/Lovenox 40 mg SQ daily (WT < 150 kg, CrCl > 30 mL/min) *Enoxaparin/Lovenox 30 mg SQ daily (WT < 150 kg, CrCl > 10-29 mL/min) *Enoxaparin/Lovenox 30 mg SQ BID (WT < 150 kg, CrCl > 30 mL/min) AND *Sequential Compression Device (SCD) Assessment and Plan Assessment and Plan 26 year old male with HIV, ESRD on dialysis, history of lymphoma, and s/p splenectomy presents with leukocytosis and pain around the PermCath and peritoneal dialysis catheter sites, also with tachycardia and borderline low blood pressures. Code Status FULL CODE Discussed Condition With Discussed with Dr. Lai, will discuss with Dr. Osorio, Dr. Bland, Dr. Lombardo Problem List: (1) SIRS (systemic inflammatory response syndrome) ICD Codes: R65.10 - Systemic inflammatory response syndrome (SIRS) of non- infectious origin without acute organ dysfunction Status: Acute Plan: Tachycardia, borderline low blood pressures, leukocytosis. Source of infection unidentified. Complaining of pain around PermCath and peritoneal dialysis catheter sites. - Check UA, still produces urine per patient report - Chest x-ray without evidence for pneumonia - Consult infectious disease - Started Ceftriaxone and Linezolid, he is status-post splenectomy - Check CD4 count due to HIV disease - No signs of meningitis on exam, but low threshold for LP if symptomatic - Defer to ID and nephrology on whether to pull indwelling catheters (2) Stage 5 chronic kidney disease ICD Codes: N18.5 - Chronic kidney disease, stage 5 Status: Acute Plan: Patient with stage 5 chronic kidney disease, recently started hemodialysis. Currently getting dialysis through PermCath, with plans for eventual peritoneal dialysis. On TTS schedule for dialysis. Potassium currently 5.4. - Dialysis tomorrow - Consult nephrology (3) Human immunodeficiency virus (HIV) positive Status: Chronic Plan: - Continue antiretrovirals - Check CD4 count - Consult infectious disease - Not on prophylactic antibiotics (4) Amputated below knee Status: Chronic Plan: - Needs assistance - Physical therapy/Occupational therapy - Case management (5) Amputated below elbow Status: Chronic Plan: - Needs assistance - Physical therapy/Occupational therapy - Case management (6) Nutrition, metabolism, and development symptoms ICD Codes: R63.8 - Other symptoms and signs concerning food and fluid intake Status: Acute Plan: Received 1L bolus in ED, continue at maintenance 90 mls/hr Renal diet Monitor electrolytes, hyperkalemic Dialysis TTS, nephrology on board (7) No contraindication to deep vein thrombosis (DVT) prophylaxis ICD Codes: Z78.9 - Other specified health status Status: Acute Plan: Heparin 5000 units tid Physician Certification 2 Midnight Certification Type: Admission for Inpatient Services Order for Inpatient Services The services are ordered in accordance with Medicare regulations or non- Medicare payer requirements, as applicable. In the case of services not specified as inpatient-only, they are appropriately provided as inpatient services in accordance with the 2-midnight benchmark. Estimated LOS (days): 3 days is the estimated time the patient will need to remain in the hospital, assuming treatment plan goals are met and no additional complications. Post-Hospital Plan: Not yet determined Problem Qualifiers (1) Amputated below knee: Qualified Codes: Z89.512 - Acquired absence of left leg below knee; Z89.511 - Acquired absence of right leg below knee (2) Amputated below elbow: Qualified Codes: Z89.212 - Acquired absence of left upper limb below elbow Navarro Simon MD R3 Feb 02, 2017 22:31
[2017-02-02] MEDS ORDERED: SODIUM CHLOR 0.9% 1000 ML INJ 1,000 ML OTHER PRN ×2 (22:32)
[2017-02-02] MEDS ORDERED: SODIUM CHLOR 0.9% 1000 ML INJ 1,000 ML IV PRN (22:32)
[2017-02-02] MEDS ORDERED: NITROGLYCERIN 0.4 MG SL 25 TABS/BTL SL PRN (22:45)
[2017-02-02] MEDS ORDERED: ONDANSETRON HCL 4 MG/2 ML VIAL IV PUSH PRN (22:45)
[2017-02-02] MEDS ORDERED: GELATIN 12 MM/7 MM FOAM TOP PRN (22:45)
[2017-02-02] MEDS ORDERED: cloNIDine HCL 0.1 MG TAB PO PRN (22:45)
[2017-02-02] MEDS ORDERED: MANNITOL 12.5 GM/50 ML VIAL IV PRN (22:45)
[2017-02-02] MEDS ORDERED: HEPARIN SODIUM - IV 10,000 UNITS/10 ML VIAL IV FLUSH PRN (22:45)
[2017-02-02] MEDS ORDERED: ALBUMIN 25% INJ 100 ML IV PRN (22:45)
[2017-02-02] MEDS: oxyCODONE/ACETAMINOPHEN 10 MG/325 MG TAB PO PRN (22:59)
[2017-02-02] MEDS: DOCUSATE SODIUM 50 MG/SENNA 8.6 MG TAB PO SCH (23:00)
[2017-02-02] MEDS: SODIUM CHLOR 0.9% 1000 ML INJ 1,000 ML IV SCH (23:00)
[2017-02-03] MEDS ORDERED: DIMETHICONE/OXYBENZONE/PADMIATE LIP BALM 4.25 GM TOPICAL PRN (00:15)
[2017-02-03 01:16] VITALS: BP 94/50; PULSE 141; RESP 18; TEMP 102.3; O2SAT 100
[2017-02-03 02:04] VITALS: PULSE 117; TEMP 98.5
[2017-02-03 03:30] VITALS: O2SAT 98
[2017-02-03 04:12] LABS: BACTERIA, URINE OCC /hpf; BLOOD, URINE TRACE (NEG); GLUCOSE,URINE TRACE mg/dL (NEG); KETONE, URINE NEG (NEG); NITRITE,URINE NEG (NEG); SQUAMOUS EPITHELIAL CELL URINE <1 /hpf (0-5); URINE COLOR LIGHT-YELLOW (YELLW/STRAW)
[2017-02-03 04:14] LABS: COMMENT (UR) CATH-CULTURE IND; CULTURE IF INDICATED CATH CULTURE IND
[2017-02-03] MEDS: HEPARIN SODIUM - SQ 10,000 UNITS/ML VIAL SQ SCH ×3 (04:40→20:00)
[2017-02-03 05:30] VITALS: BP 98/48; PULSE 94; RESP 20; TEMP 99.2; O2SAT 98
--- NOTE | 2017-02-03 05:39 | MB ---
cc: DIONTE ABERNATHY MD DATE OF CONSULTATION 02/02/2017 REASON FOR CONSULTATION End-stage renal disease on hemodialysis for management. HISTORY OF PRESENT ILLNESS This is a 26-year-old male known to me from before with a past medical history of HIV, history of lymphoma and splenectomy, end-stage renal disease on hemodialysis with a PD catheter inserted recently, history of bilateral above-knee amputations and amputation of the left arm. He was admitted because of generalized weakness, nausea, vomiting and pain at the site of the PermCath and abdominal pain. I was called to see the patient for the management of dialysis. The patient has been on hemodialysis Thursday, and Thursday. He had his last dialysis done on Thursday and the patient has a PD catheter in. He is supposed to be getting training for the peritoneal dialysis. He was complaining that he started feeling pain at the site of Perma-Cath. There was no discharge seen and also he has pain at the PD catheter site and also he is complaining of generalized body pain. There is no known history of fever. He has nausea and vomited once yesterday. There is no history of diarrhea, no shortness of breath. PAST MEDICAL HISTORY 1. History of HIV. 2. Lymphoma. 3. End-stage renal disease on hemodialysis. 4. Chronic anemia. PAST SURGICAL HISTORY 1. History of A-V catheter placement. 2. PermCath placement. 3. History of bilateral above-knee amputations. 4. History of bone marrow transplant. 5. History of left arm amputation. REVIEW OF SYSTEMS There is no history of fever. He has generalized weakness, feeling tired. He has pain in the site of Perma-Cath and also the PD catheter. There is no history of diarrhea. He has vomited once yesterday. There is no history of fever and no headache or dizziness. SOCIAL HISTORY The patient is single, lives with his aunt and grandmother. FAMILY HISTORY Negative for any renal disease. His mother possibly related to HIV and his father also of some kind of accident. ALLERGIES AMOXICILLIN. PENICILLIN G. MEDICATIONS Currently he is on the following medications - 1. Janeen-Colace 1 tablet b.i.d. 2. Ceftriaxone 1 gram IV q. 24 hours. 3. Linezolid 600 mg p.o. q. 12 hours. 4. Narcan as needed. PHYSICAL EXAMINATION GENERAL: The patient is awake, alert. He is not in acute distress. VITAL SIGNS: His last blood pressure was 108/59, temperature 97.6, oxygen saturation 96%. HEENT: The pupils are mid-constricted. Nonicteric sclerae. Conjunctivae pale. NECK: Supple. JVD is not elevated. LUNGS: The patient has bilateral decreased air entry with occasional wheezing. HEART: S1, S2. Regular rhythm. ABDOMEN: Soft, lax. There is no tenderness. Bowel sounds positive. EXTREMITIES: There is bilateral above-knee amputation and left arm amputation. INVESTIGATIONS WBC count is 18.4, hemoglobin 8.5, platelet count of 215. Sodium is 134, potassium 5.4, chloride 100, bicarb 20.2, BUN 59, creatinine 6.5, calcium 7.9 Lactic acid 0.6. Blood cultures pending. IMAGING STUDIES The patient had chest x-ray done which shows lung tony are clear. ASSESSMENT AND PLAN 1. End-stage renal disease on hemodialysis. 2. Leukocytosis. 3. Rule-out infections including bacteremia. 4. History of HIV disease. 5. Chronic anemia. 6. History of splenectomy and bone marrow transplant. The patient has decreased immunity and has leukocytosis covered with broad-spectrum antibiotic. Need to rule out also catheter- related infection or bacteremia. He has been tolerating hemodialysis according to him. There is no chills during dialysis. He is due for dialysis tomorrow. The potassium is slightly elevated and got one dose of kayexelate. I will arrange for hemodialysis tomorrow. Await culture results. Continue the antibiotic. Discussed with the patient's aunt at the bedside. Thank you for the consultation. I will follow the patient while he is in the hospital. MD SHEILA Johnson/GREGORY /10:33 PM /5:26 AM
[2017-02-03] MEDS: oxyCODONE/ACETAMINOPHEN 5 MG/325 MG TAB PO PRN ×2 (06:22→14:36)
[2017-02-03 08:15] VITALS: BP 91/51; PULSE 113; RESP 17; TEMP 99.7; O2SAT 97
[2017-02-03 08:46] LABS: AUTOMATED NEUTROPHIL # 14.8 TH/MM3 (1.8-7.7); BASOPHIL % 0.1 % (0.0-2.0); EOSINOPHIL # 0.3 TH/MM3 (0-0.4); EOSINOPHIL % 1.8 % (0.0-4.0); HEMATOCRIT 25.1 % (39.0-51.0); LYMPH % 1.9 % (9.0-44.0); LYMPHOCYTE # 0.3 TH/MM3 (1.0-4.8); MEAN CELL VOLUME 82.5 FL (80.0-100.0); MEAN CORPUSCULAR HEMOGLOBIN 24.8 PG (27.0-34.0); MEAN CORPUSCULAR HGB CONC 30.1 % (32.0-36.0); MONO % 12.1 % (0.0-8.0); NEUT % 84.1 % (16.0-70.0); PLATELET COUNT 186 TH/MM3 (150-450); RED BLOOD COUNT 3.04 MIL/MM3 (4.50-5.90); RED CELL DISTRIBUTION WIDTH 14.8 % (11.6-17.2); WHITE BLOOD COUNT 17.6 TH/MM3 (4.0-11.0)
[2017-02-03] MEDS: SODIUM CHLORIDE 0.9% FLUSH 10 ML FLUSH IV FLUSH SCH ×2 (09:00→21:00)
[2017-02-03] MEDS: DOCUSATE SODIUM 50 MG/SENNA 8.6 MG TAB PO SCH ×3 (09:00→21:17)
[2017-02-03] MEDS: FOSAMPRENAVIR CALCIUM PO SCH ×2 (09:11→21:29)
[2017-02-03] MEDS: LINEZOLID 600 MG TAB PO SCH ×2 (09:11→21:15)
[2017-02-03] MEDS: ABACAVIR SULFATE 300 MG TAB PO SCH ×2 (09:11→21:29)
[2017-02-03] MEDS: RITONAVIR 100 MG TAB PO SCH ×2 (09:11→21:16)
[2017-02-03] MEDS: levETIRAcetam 250 MG TAB PO SCH ×2 (09:12→21:16)
[2017-02-03] MEDS: SODIUM CHLOR 0.9% 1000 ML INJ 1,000 ML IV SCH ×2 (09:15→14:37)
[2017-02-03 09:29] LABS: HEMO FLAGS AUTO DIFF
[2017-02-03 09:36] LABS: CORRECTED NUCLEATED RBC 135 /100 WBC (0-0); EOSINOPHILS 3 % (0-4); MYELOCYTES 1 % (0-0); PLATELET ESTIMATE SMEAR NORMAL (NORMAL); PLATELET MORPHOLOGY NORMAL (NORMAL); POLYS (SEG NEUTROPHILS) 90 % (16-70); SCAN/DIFF FINAL DIFF MANUAL; WBC DIFF SAMPLE 100
[2017-02-03 09:37] LABS: TARGET CELLS 1+ (NORMAL)
[2017-02-03 09:39] LABS: HOWELL-JOLLY BODIES PRESENT (NONE SEEN)
[2017-02-03 09:44] LABS: BICARBONATE 14.7 MEQ/L (21.0-32.0); MAGNESIUM 1.3 MG/DL (1.5-2.5); POTASSIUM 5.7 MEQ/L (3.5-5.1); TOTAL BILIRUBIN ADULT 0.3 MG/DL (0.2-1.0)
[2017-02-03 09:51] LABS: CALCIUM-PROTEIN CORRECTED 6.8 MG/DL (8.5-10.1)
--- NOTE | 2017-02-03 11:41 | OTSOAPIP ---
10 AM OFF THE FLOOR FOR DIALYSIS. WILL REATTEMPT NEXT TREATMENT DAY. Therapist: Divine Cartagena OTR/L Signature on file
[2017-02-03] MEDS: EPOETIN ALFA 10,000 UNITS/ML VIAL IV PUSH PRN (12:15)
[2017-02-03] MEDS: GENTAMICIN SULFATE (DIALYSIS USE ONLY) 20 MG/2 ML VIAL OTHER PRN (12:15)
--- NOTE | 2017-02-03 14:00 | HHI.FPPN ---
Subjective Remarks Patient was seen, examined and discussed with the medicine team. This is a 26-year-old male with end-stage renal disease, HIV, history of lymphoma, splenectomy status, currently getting dialysis on Tuesdays , and Thursday. Was recently in the hospital and a permacath was placed for future peritoneal dialysis. He is seen yesterday in the emergency department with complaint of pain around both new catheters, some low abdominal discomfort, sore throat and cough. He's had loose stools for 6 days as well. Denies fever or sweats. 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 He reports dry and scaly skin since receiving cefepime. Please see history and physical examination for this admission for additional historical details including past, family, social history and review of systems at the time of admission. He does report using marijuana on a regular basis. This morning, his low abdominal discomfort is improved, lip balm did help his lips, his throat is less sore and he is coughing less. His dry scaly skin is pruritic. The pain around his catheters is improved. He is seen while receiving dialysis. Objective Vitals Vital Signs Date Time Temp Pulse Resp B/P (MAP) Pulse Ox O2 Delivery O2 Flow Rate FiO2 02/03/17 08:15 99.7 113 17 91/51 (64) 97 02/03/17 05:30 99.2 94 20 98/48 (65) 98 02/03/17 03:30 98 02/03/17 02:04 98.5 117 02/03/17 01:16 141 18 94/50 (65) 100 02/02/17 22:22 97.6 130 20 108/59 (75) 96 02/02/17 20:00 96 02/02/17 19:23 02/02/17 17:51 82 14 114/62 (79) 02/02/17 15:30 87 16 107/57 (74) 98 Room Air I/O 02/02/17 02/02/17 02/02/17 02/03/17 02/03/17 02/03/17 07:00 15:00 23:00 07:00 15:00 23:00 Intake Total 1100 ml 675 ml Output Total 750 ml 2000 ml Balance 1100 ml -75 ml -2000 ml Intake IV Total 1100 ml 675 ml Output Urine Total 750 ml Hemodialysis 2000 ml # Voids 4 Result Diagram: 02/03/17 0742 02/03/17 0742 Other Results Laboratory Tests Test 02/02/17 14:20 02/02/17 15:30 02/03/17 03:57 02/03/17 07:42 White Blood Count 18.4 TH/MM3 17.6 TH/MM3 Red Blood Count 3.39 MIL/MM3 3.04 MIL/MM3 Hemoglobin 8.5 GM/DL 7.5 GM/DL Hematocrit 27.8 % 25.1 % Mean Corpuscular Volume 82.1 FL 82.5 FL Mean Corpuscular Hemoglobin 25.2 PG 24.8 PG Mean Corpuscular Hemoglobin Concent 30.7 % 30.1 % Red Cell Distribution Width 15.3 % 14.8 % Platelet Count 215 TH/MM3 186 TH/MM3 Mean Platelet Volume 10.5 FL 10.5 FL Neutrophils (%) (Auto) 57.5 % 84.1 % Lymphocytes (%) (Auto) 31.2 % 1.9 % Monocytes (%) (Auto) 7.6 % 12.1 % Eosinophils (%) (Auto) 2.3 % 1.8 % Basophils (%) (Auto) 1.4 % 0.1 % Neutrophils # (Auto) 10.5 TH/MM3 14.8 TH/MM3 Lymphocytes # (Auto) 5.7 TH/MM3 0.3 TH/MM3 Monocytes # (Auto) 1.4 TH/MM3 2.1 TH/MM3 Eosinophils # (Auto) 0.4 TH/MM3 0.3 TH/MM3 Basophils # (Auto) 0.3 TH/MM3 0.0 TH/MM3 CBC Comment AUTO DIFF AUTO DIFF Differential Total Cells Counted 100 100 Neutrophils % (Manual) 62 % 90 % Lymphocytes % 23 % 4 % Monocytes % 9 % 2 % Eosinophils % 3 % 3 % Neutrophils # (Manual) 12.0 TH/MM3 16.0 TH/MM3 Metamyelocytes 2 % Myelocytes 1 % 1 % Nucleated Red Blood Cells 164 /100 WBC 135 /100 WBC Differential Comment FINAL DIFF MANUAL FINAL DIFF MANUAL Platelet Estimate NORMAL NORMAL Platelet Morphology Comment ENLARGED NORMAL Polychromasia 4.0 % Target Cells 1+ 1+ Ovalocytes 1+ Keratocytes OCC Blood Urea Nitrogen 59 MG/DL 62 MG/DL Creatinine 6.59 MG/DL 7.11 MG/DL Random Glucose 87 MG/DL 71 MG/DL Calcium Level 7.9 MG/DL 6.2 MG/DL Sodium Level 134 MEQ/L 130 MEQ/L Potassium Level 5.4 MEQ/L 5.7 MEQ/L Chloride Level 100 MEQ/L 101 MEQ/L Carbon Dioxide Level 20.2 MEQ/L 14.7 MEQ/L Anion Gap 14 MEQ/L 14 MEQ/L Estimat Glomerular Filtration Rate 12 ML/MIN 11 ML/MIN Lactic Acid Level 0.6 mmol/L Urine Color LIGHT-YELLOW Urine Turbidity HAZY Urine pH 6.0 Urine Specific [place] 1.007 Urine Protein 100 mg/dL Urine Glucose (UA) TRACE mg/dL Urine Ketones NEG mg/dL Urine Occult Blood TRACE Urine Nitrite NEG Urine Bilirubin NEG Urine Urobilinogen LESS THAN 2.0 MG/DL Urine Leukocyte Esterase NEG Urine RBC 1 /hpf Urine WBC 5 /hpf Urine Squamous Epithelial Cells <1 /hpf Urine Amorphous Sediment RARE Urine Bacteria OCC /hpf Microscopic Urinalysis Comment CATH-CULTURE IND Toxic Granulation [place] Bodies PRESENT Red Cell Morphology Comment Total Protein 5.8 GM/DL Albumin 2.0 GM/DL Phosphorus Level 8.3 MG/DL Magnesium Level 1.3 MG/DL Alkaline Phosphatase 83 U/L Aspartate Amino Transf (AST/SGOT) 21 U/L Alanine Aminotransferase (ALT/SGPT) 32 U/L Total Bilirubin 0.3 MG/DL Protein Corrected Calcium 6.8 MG/DL Objective Remarks O. CONSTITUTIONAL/GEN: normally nourished, in NAD, in dialysis. EYES: conjunctiva normal, PERRLA, EOMI. ENT: Lips are dry and peeling NECK: Supple LUNGS: clear A-P, respiratory effort is normal. CARDIOVASCULAR: RR without murmur or gallop. GI/ABD: soft without masses, without organomegaly. NEURO: No focal deficits. SKIN: color normal, extremely dry skin, with flaking and peeling including in his scalp. He reports this to be pruritic. HEME/LYMPH: no bruising, petechia or significant adenopathy MUSC: He has bilateral AKA amputations and amputation of his left arm area the stumps of the lower extremities do show some chronic wounds which are nonpurulent. PSYCH/MENTAL STATUS: Alert and oriented x 3. A/P Assessment and Plan 26 year old male with HIV, ESRD on dialysis, history of lymphoma, and s/p splenectomy presents with leukocytosis and pain around the PermCath and peritoneal dialysis catheter sites, also with tachycardia and borderline low blood pressures. He is more comfortable today. Attending Attestation Patient seen and examined. Case reviewed and discussed with the resident team. Agree with plan of care as discussed with me and documented in the resident note. Problem List: (1) SIRS (systemic inflammatory response syndrome) ICD Codes: R65.10 - Systemic inflammatory response syndrome (SIRS) of non- infectious origin without acute organ dysfunction Status: Acute Plan: Tachycardia, borderline low blood pressures, leukocytosis. Source of infection unidentified. Complaining of pain around PermCath and peritoneal dialysis catheter sites. - Check UA, still produces urine per patient report - Chest x-ray without evidence for pneumonia - Consult infectious disease - Started Ceftriaxone and Linezolid, he is status-post splenectomy - Check CD4 count due to HIV disease - No signs of meningitis on exam, but low threshold for LP if symptomatic - Defer to ID and nephrology on whether to pull indwelling catheters (2) Stage 5 chronic kidney disease ICD Codes: N18.5 - Chronic kidney disease, stage 5 Status: Acute Plan: Patient with stage 5 chronic kidney disease, recently started hemodialysis. Currently getting dialysis through PermCath, with plans for eventual peritoneal dialysis. On TTS schedule for dialysis. Potassium currently 5.4. - Dialysis today -Appreciate nephrology advice (3) Human immunodeficiency virus (HIV) positive Status: Chronic Plan: - Continue antiretrovirals - Check CD4 count - Consult infectious disease - Not on prophylactic antibiotics (4) Amputated below knee Status: Chronic Plan: - Needs assistance - Physical therapy/Occupational therapy - Case management (5) Amputated below elbow Status: Chronic Plan: - Needs assistance - Physical therapy/Occupational therapy - Case management (6) Nutrition, metabolism, and development symptoms ICD Codes: R63.8 - Other symptoms and signs concerning food and fluid intake Status: Acute Plan: Received 1L bolus in ED, continue at maintenance 90 mls/hr Renal diet Monitor electrolytes, hyperkalemic Dialysis TTS, nephrology on board (7) No contraindication to deep vein thrombosis (DVT) prophylaxis ICD Codes: Z78.9 - Other specified health status Status: Acute Plan: Heparin 5000 units tid (8) Pressure ulcer of left leg, stage 1 ICD Codes: L89.891 - Pressure ulcer of other site, stage 1 Status: Chronic Plan: Wound care to assess (9) Pressure ulcer of right leg, stage 1 ICD Codes: L89.891 - Pressure ulcer of other site, stage 1 Status: Chronic Plan: Wound care to assess (10) Dry skin dermatitis ICD Codes: L85.3 - Xerosis cutis Status: Acute Plan: Will add Eucerin and 1% hydrocortisone cream, 50-50, to apply to dry scaling skin twice a day Problem Qualifiers (1) Amputated below knee: Qualified Codes: Z89.512 - Acquired absence of left leg below knee; Z89.511 - Acquired absence of right leg below knee (2) Amputated below elbow: Qualified Codes: Z89.212 - Acquired absence of left upper limb below elbow Cindy Osorio MD Feb 03, 2017 14:00
--- NOTE | 2017-02-03 14:42 | HHI.NPPN ---
Subjective History of Present Illness 26-year-old male known to me from before with a past medical history of HIV, history of lymphoma and splenectomy, end-stage renal disease on hemodialysis with a PD catheter inserted recently, history of bilateral above-knee amputations and amputation of the left arm. He was admitted because of generalized weakness, nausea, vomiting and pain at the site of the PermCath and abdominal pain. I was called to see the patient for the management of dialysis. The patient has been on hemodialysis Thursday, and Thursday. He had his last dialysis done on Thursday and the patient has a PD catheter in. He is supposed to be getting training for the peritoneal dialysis. Additional Remarks Patient is alert, still has pain at PermCath site, and occ. abd pain. Review of Systems General Constitutional: Fatigue Respiratory Lungs: SOB Cardiovascular Cardiac: HERMAN Gastrointestinal Gastrointestinal: Abdominal Pain Objective Data Data 02/03/17 02/04/17 19:00 07:00 Output Total 2000 ml Balance -2000 ml Hemodialysis 2000 ml Vital Signs Date Time Temp Pulse Resp B/P (MAP) Pulse Ox O2 Delivery O2 Flow Rate FiO2 02/03/17 08:15 99.7 113 17 91/51 (64) 97 02/03/17 05:30 99.2 94 20 98/48 (65) 98 02/03/17 03:30 98 02/03/17 02:04 98.5 117 02/03/17 01:16 141 18 94/50 (65) 100 02/02/17 22:22 97.6 130 20 108/59 (75) 96 02/02/17 20:00 96 02/02/17 19:23 02/02/17 17:51 82 14 114/62 (79) 02/02/17 15:30 87 16 107/57 (74) 98 Room Air -: 02/03/17 0742 02/03/17 0742 Microbiology 02/02/17 Aerobic Blood Culture - Preliminary, Resulted NO GROWTH IN 1 DAY 02/02/17 Anaerobic Blood Culture - Preliminary, Resulted NO GROWTH IN 1 DAY 02/02/17 Aerobic Blood Culture - Preliminary, Resulted NO GROWTH IN 1 DAY 02/02/17 Anaerobic Blood Culture - Preliminary, Resulted NO GROWTH IN 1 DAY 02/03/17 Urine Culture, Received Pending Physical Exam General Appearance: No Acute Distress, Comfortable Eyes Eye Exam: Pupils Equal Throat Throat Exam: Oral Mucosa Straughn & Moist Pulmonary Resp Exam: Breath Sounds Equal, No Distress, Decreased Bases Cardiology CV Exam: Regular, Normal Sinus Rhythm Gastrointestinal/Abdomen GI Exam: Soft, Non-Tender, Bowel Sounds Present, Non-Distended (has PD Catheter in place.) Extremeties Extremeties Remarks Bilateral AKA. Neurologic Neuro Exam: Alert, Awake, Oriented Assessment/Plan Assessment Summary: Anemia of CKD, Hypertension, End Stage Renal Disease Problem List: (1) HIV (human immunodeficiency virus infection) ICD Codes: Z21 - Asymptomatic human immunodeficiency virus [HIV] infection status Status: Chronic (2) HTN (hypertension) ICD Codes: I10 - Essential (primary) hypertension Status: Resolved (3) Abdominal pain ICD Codes: R10.9 - Unspecified abdominal pain (4) Leukocytosis ICD Codes: D72.829 - Elevated white blood cell count, unspecified Status: Chronic (5) Generalized pain ICD Codes: R52 - Pain, unspecified Status: Acute (6) Stage 5 chronic kidney disease ICD Codes: N18.5 - Chronic kidney disease, stage 5 Status: Acute (7) Dependent on hemodialysis ICD Codes: Z99.2 - Dependence on renal dialysis Status: Acute Plan Patient has HD done today, tolerated well. PermCath site is clean, no discharge, no swelling. Remain afebrile, WBC slightly better. Cultures negative so far. HD done and tolerated well. Follow the WBC and cultures, continue antibiotics. Problem Qualifiers (1) Leukocytosis: Qualified Codes: D72.829 - Elevated white blood cell count, unspecified Levi Solis MD Feb 03, 2017 14:42
[2017-02-03] MEDS: cefTRIAXone INJ 1,000 MG in SODIUM CHLORIDE 0.9% INJ 100 ML IV SCH (15:25)
--- NOTE | 2017-02-03 16:39 | MB ---
cc: VANESSA DURANT MD DATE OF CONSULTATION: 02/03/[address] Simon REASON FOR CONSULTATION: This 26-year-old male with history of splenectomy, HIV, history of lymphoma. He presents with leukocytosis, unknown source. Pain around Port and peritoneal access sites. HISTORY OF PRESENT ILLNESS This is a 26-year-old black male who was admitted to the hospital on 02/02 because of abdominal pain. The patient had a recent peritoneal catheter placement with the intention of starting peritoneal dialysis. He was evaluated emergency department and found to have white count of 18.4. He was afebrile. This consultation is requested because of leukocytosis in this patient. The patient is in no acute distress. He keeps his eyes closed and while I tried to awaken him and get information from him. He does not open his eyes and does not respond to my questions except with occasional yes/no answers. From his responses is seems that he does not want to be bothered by anyone currently. The patient is known to have a flat affect from prior hospitalization. He went to dialysis earlier today. He had a temperature of 99.7 degrees earlier today. I reviewed the medical record and obtain information from the medical records and very little information from him except for him giving me some yes/no answers to my questions by mostly shaking his head. He seems to deny fevers, chills. He indicates that he has pain in his abdomen. When I try to get information about the tract of the pain. He does not respond in any meaningful way. PAST MEDICAL HISTORY 1. HIV disease 2. History of lymphoma 3. End-stage renal disease on hemodialysis. 4. Recent peritoneal dialysis catheter placement 5. Bilateral amputation 6. Amputation of the left upper extremity below the elbow. ALLERGIES AMOXICILLIN PENICILLIN MEDICATIONS 1. Ceftriaxone 2. Ziagen 3. Epivir 4. Norvir 5. Keppra 6. Pepcid 7. Neupogen 8. Percocet 9. Zyvox SOCIAL HISTORY No tobacco, occasional alcohol. No illicit drug FAMILY HISTORY Noncontributory. REVIEW OF SYSTEMS Difficult to obtain since the patient does not cooperate with most of my questions asked. The review of systems previously obtained has been noted. PHYSICAL EXAMINATION IN GENERAL: This is a small frame male who is in no acute distress. The patient keeps his eyes closed. He does not cooperate for example when he opens his eyes. His sclera appears nonicteric. Oropharynx mucosa appears moist. NECK: Supple without adenopathy. LUNGS: No rhonchi audible. HEART: Regular S1, S2 without murmurs. ABDOMEN: Bowel sounds present, soft, very mild tenderness when I palpated the abdomen. PD catheter is in place. No visible drainage on the overlying dressing. CHEST: The patient has a Perma catheter in the right upper chest which has no drainage at the entry site. RECTUM: The rectal is not preformed. EXTREMITIES: No clubbing, cyanosis or edema. SKIN: No rash. PSYCHIATRIC: Psychiatric the patient has flat affect and appears withdrawn. LABORATORY DATA WBC 17.6, platelets 186 a 684% neutrophils, hemoglobin 7.5, creatinine 7.11, BUN 62, sodium 130, zero. Liver function tests normal Urinalysis reveals five white cells. Urine culture pending. Blood cultures no growth in 1 day. Chest x-ray Clear lungs. IMPRESSION Leukocytosis. Questionable etiology. Patient with abdominal pain and recent peritoneal dialysis catheter placement. However the dialysis catheter has not been used for dialysis. The patient has abnormal urinalysis and is very likely could be the source of the leukocytosis. I do not find any clear source of leukocytosis at this time in this patient. RECOMMENDATIONS 1. Continue Zyvox. 2. Continue ceftriaxone 3. Monitor blood cultures 4. Monitor urine culture. 5. Follow the white blood cell count. Thank you for this consultation. I will follow the patient along with you and we will follow the cultures. Hopefully the patient will cooperate more with the caregivers treating him. His HIV disease has been treated and appears stable with HIV medications which should be continued as well. Thank you this consultation. Vanessa Durant MD FD/kulwinder /3:32 PM /4:26 PM ANGE
--- NOTE | 2017-02-03 17:29 | PD.WCN.NOT ---
Wound Consult Description: Consult for bilateral bka and peritoneal cath site per YOSVANY Lai Communicated with: YASMIN Champagne Recommendation: [place] bilateral BKA's with Cavilon spray BID and PRN and leave open to air. Change dry dressing to left peritoneal cath site PRN for saturation or dislodgement. Additional Information: Patient seen on [address] [place]. Patient states that he does not have a wound where his peritoneal cath is located. The area is noted with a dry cover that can be changed as needed. Bilateral BKA's are noted with dry skin that is recommended to cover with single layer Xeroform, however the patient is extremely sensitive and c/o pain when gently touched. The patient would not allow a dressing to be placed due to pain. Cavilon spray was used to protect dry skin and left open to air for comfort. Avelina Heart [facility] Feb 03, 2017 17:28
[2017-02-03 20:00] VITALS: BP 90/49; PULSE 99; RESP 17; TEMP 98.8; O2SAT 98
[2017-02-03] MEDS: HYDROCORTISONE 1% CREAM 30 GM TOPICAL SCH (21:15)
[2017-02-03] MEDS: EUCERIN CREAM 120 GM JAR TOPICAL SCH (21:15)
[2017-02-03] MEDS: FAMOTIDINE 20 MG TAB PO SCH (21:16)
[2017-02-04] VITALS (8 sets, daily range): BP systolic 96–140; BP diastolic 51–90; PULSE 68–119; RESP 16–20; TEMP 97.8–101.8; O2SAT 95–98
[2017-02-04] MEDS: SODIUM CHLOR 0.9% 1000 ML INJ 1,000 ML IV SCH (01:56)
[2017-02-04] MEDS: HEPARIN SODIUM - SQ 10,000 UNITS/ML VIAL SQ SCH ×3 (04:00→23:39)
[2017-02-04 05:58] LABS: AUTOMATED NEUTROPHIL # 9.6 TH/MM3 (1.8-7.7); BASOPHIL # 0.1 TH/MM3 (0-0.2); EOSINOPHIL # 0.6 TH/MM3 (0-0.4); EOSINOPHIL % 4.5 % (0.0-4.0); HEMATOCRIT 21.9 % (39.0-51.0); LYMPH % 13.3 % (9.0-44.0); LYMPHOCYTE # 1.7 TH/MM3 (1.0-4.8); MEAN CELL VOLUME 81.7 FL (80.0-100.0); MEAN CORPUSCULAR HEMOGLOBIN 25.1 PG (27.0-34.0); MEAN CORPUSCULAR HGB CONC 30.7 % (32.0-36.0); NEUT % 76.2 % (16.0-70.0); PLATELET COUNT 198 TH/MM3 (150-450); RED BLOOD COUNT 2.68 MIL/MM3 (4.50-5.90); RED CELL DISTRIBUTION WIDTH 14.8 % (11.6-17.2); WHITE BLOOD COUNT 12.6 TH/MM3 (4.0-11.0)
[2017-02-04] MEDS: oxyCODONE/ACETAMINOPHEN 5 MG/325 MG TAB PO PRN (05:58)
[2017-02-04 06:10] LABS: HEMO FLAGS AUTO DIFF
[2017-02-04] MEDS ORDERED: ACETAMINOPHEN 325 MG TAB PO PRN (06:30)
[2017-02-04] MEDS ORDERED: diphenhydrAMINE HCL 25 MG CAP PO PRN (06:30)
[2017-02-04] MEDS ORDERED: SODIUM CHLOR 0.9% 250 ML INJ 250 ML IV ONE (06:30)
[2017-02-04 06:55] LABS: MAGNESIUM 1.6 MG/DL (1.5-2.5); POTASSIUM 5.3 MEQ/L (3.5-5.1)
[2017-02-04 07:42] LABS: CORRECTED NUCLEATED RBC 50 /100 WBC (0-0); EOSINOPHILS 5 % (0-4); MYELOCYTES 1 % (0-0); NEUTROPHIL # MANUAL DIFF 10.5 TH/MM3 (1.8-7.7); PLATELET ESTIMATE SMEAR NORMAL (NORMAL); PLATELET MORPHOLOGY NORMAL (NORMAL); POLYS (SEG NEUTROPHILS) 82 % (16-70); WBC DIFF SAMPLE 100
[2017-02-04 07:43] LABS: SCAN/DIFF FINAL DIFF MANUAL
[2017-02-04 07:44] LABS: HOWELL-JOLLY BODIES PRESENT (NONE SEEN)
[2017-02-04] MEDS: diphenhydrAMINE HCL 25 MG CAP PO PRN ×2 (08:33→12:22)
[2017-02-04] MEDS: SODIUM CHLORIDE 0.9% FLUSH 10 ML FLUSH IV FLUSH SCH ×2 (09:00→21:00)
--- NOTE | 2017-02-04 09:06 | HHI.FPPN ---
Subjective Remarks Pt was sitting up in bed watching tv. He states that he feels very well and is not in any pain. He does not have pain in his abdomen on his leg stumps. He denies fever or chills. He feels that he Eucerin/hydrocortisone lotion has helped. (Luz Bland MD R2) Objective Vitals Vital Signs Date Time Temp Pulse Resp B/P (MAP) Pulse Ox O2 Delivery O2 Flow Rate FiO2 02/04/17 06:00 99.3 90 16 96/56 (69) 98 02/04/17 00:20 101.8 119 17 100/51 (67) 95 02/03/17 20:00 98.8 99 17 90/49 (63) 98 I/O 02/03/17 02/03/17 02/03/17 02/04/17 02/04/17 02/04/17 07:00 15:00 23:00 07:00 15:00 23:00 Intake Total 675 ml 900 ml 1938 ml Output Total 750 ml 2000 ml 1025 ml 400 ml Balance -75 ml -2000 ml -125 ml 1538 ml Intake Oral 900 ml 1038 ml IV Total 675 ml 900 ml Output Urine Total 750 ml 1025 ml 400 ml Hemodialysis 2000 ml # Voids 4 # Bowel Movements 0 0 (Luz Bland MD R2) Result Diagram: 02/04/1753702/04/17537 Objective Remarks O. CONSTITUTIONAL/GEN: normally nourished, in NAD, sitting up in bed. EYES: conjunctiva normal, PERRLA, EOMI. ENT: Lips are dry and peeling NECK: Supple LUNGS: clear A-P, respiratory effort is normal. CARDIOVASCULAR: RR without murmur or gallop. GI/ABD: soft without masses, without organomegaly. NEURO: No focal deficits. SKIN: color normal, extremely dry skin, with flaking and peeling including on his scalp. Peritoneal catheter site covered with clean dressing HEME/LYMPH: no bruising, petechia or significant adenopathy MUSC: He has bilateral AKA amputations and amputation of his left arm area the stumps of the lower extremities do show some chronic wounds which are nonpurulent. Nontender to palpation compared to the previous PSYCH/MENTAL STATUS: Alert and oriented x 3. (Luz Bland MD R2) A/P Assessment and Plan 26 year old male with HIV, ESRD on dialysis, history of lymphoma, and s/p splenectomy presents with leukocytosis and pain around the PermCath and peritoneal dialysis catheter sites, also with tachycardia and borderline low blood pressures. He is more comfortable today. Seen seen and examined with Dr. Lai. Will discuss with Dr. Osorio Discharge Planning Possibly next 2-3 days. Patient has shown marked improvement but was critically anemic today 02/04 and required blood transfusion (Luz Bland MD R2) Attending Attestation Patient seen and examined. Case reviewed and discussed with the resident team. Agree with plan of care as discussed with me and documented in the resident note. (Cindy Osorio MD) Problem List: (1) Anemia Status: Acute Plan: -Hemoglobin 6.7, hematocrit 21.9 on 02/04 -Transfusing 1 unit leuko-reduced red blood cells on 02/04 -Will transfuse second unit on 02/05 -Follow his H&H (2) SIRS (systemic inflammatory response syndrome) ICD Codes: R65.10 - Systemic inflammatory response syndrome (SIRS) of non- infectious origin without acute organ dysfunction Status: Acute Plan: Tachycardia, borderline low blood pressures, leukocytosis. Source of infection unidentified. Complaining of pain around PermCath and peritoneal dialysis catheter sites. - Urine culture shows no growth 1 day - Chest x-ray without evidence for pneumonia - Infectious disease following - Continue Ceftriaxone and Linezolid, he is status-post splenectomy - CD4 count pending - Defer to ID and nephrology on whether to pull indwelling catheters (3) Stage 5 chronic kidney disease ICD Codes: N18.5 - Chronic kidney disease, stage 5 Status: Acute Plan: Patient with stage 5 chronic kidney disease, recently started hemodialysis. Currently getting dialysis through PermCath, with plans for eventual peritoneal dialysis. On TTS schedule for dialysis. -Appreciate nephrology advice (4) Human immunodeficiency virus (HIV) positive Status: Chronic Plan: - Continue antiretrovirals - Check CD4 count - Consult infectious disease - Not on prophylactic antibiotics (5) Amputated below knee Status: Chronic Plan: - Needs assistance - Per PT: Patient does not need physical therapy at home - Case management (6) Amputated below elbow Status: Chronic Plan: - Needs assistance - Physical therapy/Occupational therapy - Case management (7) Nutrition, metabolism, and development symptoms ICD Codes: R63.8 - Other symptoms and signs concerning food and fluid intake Status: Acute Plan: Oral fluids Renal diet Monitor electrolytes, hyperkalemic Dialysis TTS, nephrology on board (8) Pressure ulcer of left leg, stage 1 ICD Codes: L89.891 - Pressure ulcer of other site, stage 1 Status: Chronic Plan: Wound care managing (9) Pressure ulcer of right leg, stage 1 ICD Codes: L89.891 - Pressure ulcer of other site, stage 1 Status: Chronic Plan: Wound care managing (10) Dry skin dermatitis ICD Codes: L85.3 - Xerosis cutis Status: Acute Plan: Continue Eucerin and 1% hydrocortisone cream, 50-50, to apply to dry scaling skin twice a day (11) No contraindication to deep vein thrombosis (DVT) prophylaxis ICD Codes: Z78.9 - Other specified health status Status: Acute Plan: Heparin 5000 units every 8 hours (Luz Bland MD R2) Problem Qualifiers (1) Amputated below knee: Qualified Codes: Z89.512 - Acquired absence of left leg below knee; Z89.511 - Acquired absence of right leg below knee (2) Amputated below elbow: Qualified Codes: Z89.212 - Acquired absence of left upper limb below elbow Luz Bland MD R2 Feb 04, 2017 09:06 Cindy Osorio MD Feb 04, 2017 16:20
[2017-02-04] MEDS: DOCUSATE SODIUM 50 MG/SENNA 8.6 MG TAB PO SCH ×2 (09:16→21:00)
[2017-02-04] MEDS: levETIRAcetam 250 MG TAB PO SCH ×2 (09:16→23:31)
[2017-02-04] MEDS: ABACAVIR SULFATE 300 MG TAB PO SCH ×2 (09:16→23:31)
[2017-02-04] MEDS: FOSAMPRENAVIR CALCIUM PO SCH ×2 (09:16→23:34)
[2017-02-04] MEDS: RITONAVIR 100 MG TAB PO SCH ×2 (09:16→23:32)
[2017-02-04] MEDS: LINEZOLID 600 MG TAB PO SCH ×2 (09:16→23:31)
[2017-02-04] MEDS: HYDROCORTISONE 1% CREAM 30 GM TOPICAL SCH ×3 (09:19→18:00)
[2017-02-04] MEDS: EUCERIN CREAM 120 GM JAR TOPICAL SCH ×3 (09:19→18:00)
--- NOTE | 2017-02-04 11:12 | OTSOAPIP ---
PATIENT RECEIVING TRANSFUSION DUE TO LOW BLOOD COUNT. Therapist: Divine Cartagena OTR/L Signature on file
[2017-02-04] MEDS: oxyCODONE/ACETAMINOPHEN 10 MG/325 MG TAB PO PRN ×2 (12:22→23:30)
--- NOTE | 2017-02-04 15:57 | HHI.IDPN ---
Note Infectious Disease Note Patient is awake. Says he feels okay and denies pains. A little more cooperative. Temp lower. PAST MEDICAL HISTORY 1. HIV disease 2. History of lymphoma 3. End-stage renal disease on hemodialysis. 4. Recent peritoneal dialysis catheter placement 5. Bilateral amputation 6. Amputation of the left upper extremity below the elbow. 7. Splenectomy. ALLERGIES AMOXICILLIN PENICILLIN ANTIBIOTICS Ceftriaxone Zyvox SOCIAL HISTORY No tobacco, occasional alcohol. No illicit drug FAMILY HISTORY Noncontributory. OBJECTIVE: Vital Signs Date Time Temp Pulse Resp B/P (MAP) Pulse Ox O2 Delivery O2 Flow Rate FiO2 02/04/17 12:20 97.8 81 17 101/62 (75) 96 02/04/17 09:37 98.3 94 16 97/57 (70) 96 02/04/17 09:24 97.8 84 20 111/69 02/04/17 09:09 98.4 77 20 101/60 02/04/17 06:00 99.3 90 16 96/56 (69) 98 02/04/17 00:20 101.8 119 17 100/51 (67) 95 02/03/17 20:00 98.8 99 17 90/49 (63) 98 Laboratory Tests Test 02/03/17 07:42 02/04/17 05:38 White Blood Count 17.6 TH/MM3 12.6 TH/MM3 Red Blood Count 3.04 MIL/MM3 2.68 MIL/MM3 Hemoglobin 7.5 GM/DL 6.7 GM/DL Hematocrit 25.1 % 21.9 % Mean Corpuscular Volume 82.5 FL 81.7 FL Mean Corpuscular Hemoglobin 24.8 PG 25.1 PG Mean Corpuscular Hemoglobin Concent 30.1 % 30.7 % Red Cell Distribution Width 14.8 % 14.8 % Platelet Count 186 TH/MM3 198 TH/MM3 Mean Platelet Volume 10.5 FL 10.7 FL Neutrophils (%) (Auto) 84.1 % 76.2 % Lymphocytes (%) (Auto) 1.9 % 13.3 % Monocytes (%) (Auto) 12.1 % 5.0 % Eosinophils (%) (Auto) 1.8 % 4.5 % Basophils (%) (Auto) 0.1 % 1.0 % Neutrophils # (Auto) 14.8 TH/MM3 9.6 TH/MM3 Lymphocytes # (Auto) 0.3 TH/MM3 1.7 TH/MM3 Monocytes # (Auto) 2.1 TH/MM3 0.6 TH/MM3 Eosinophils # (Auto) 0.3 TH/MM3 0.6 TH/MM3 Basophils # (Auto) 0.0 TH/MM3 0.1 TH/MM3 CBC Comment AUTO DIFF AUTO DIFF Differential Total Cells Counted 100 100 Neutrophils % (Manual) 90 % 82 % Lymphocytes % 4 % 11 % Monocytes % 2 % 1 % Eosinophils % 3 % 5 % Neutrophils # (Manual) 16.0 TH/MM3 10.5 TH/MM3 Myelocytes 1 % 1 % Nucleated Red Blood Cells 135 /100 WBC 50 /100 WBC Differential Comment FINAL DIFF MANUAL FINAL DIFF MANUAL Toxic Granulation Platelet Estimate NORMAL NORMAL Platelet Morphology Comment NORMAL NORMAL Target Cells 1+ [place] Bodies PRESENT PRESENT Red Cell Morphology Comment Laboratory Tests Test 02/03/17 07:42 02/04/17 05:38 Blood Urea Nitrogen 62 MG/DL 31 MG/DL Creatinine 7.11 MG/DL 4.83 MG/DL Random Glucose 71 MG/DL 93 MG/DL Total Protein 5.8 GM/DL 6.0 GM/DL Albumin 2.0 GM/DL Calcium Level 6.2 MG/DL 6.5 MG/DL Phosphorus Level 8.3 MG/DL 5.2 MG/DL Magnesium Level 1.3 MG/DL 1.6 MG/DL Alkaline Phosphatase 83 U/L Aspartate Amino Transf (AST/SGOT) 21 U/L Alanine Aminotransferase (ALT/SGPT) 32 U/L Total Bilirubin 0.3 MG/DL Sodium Level 130 MEQ/L 136 MEQ/L Potassium Level 5.7 MEQ/L 5.3 MEQ/L Chloride Level 101 MEQ/L 102 MEQ/L Carbon Dioxide Level 14.7 MEQ/L 25.0 MEQ/L Anion Gap 14 MEQ/L 9 MEQ/L Estimat Glomerular Filtration Rate 11 ML/MIN 18 ML/MIN Protein Corrected Calcium 6.8 MG/DL 7.0 MG/DL Microbiology Date/Time Source Procedure Growth Status 02/02/17 15:30 Blood Peripheral Aerobic Blood Culture - Preliminary NO GROWTH IN 2 DAYS Resulted 02/02/17 15:30 Blood Peripheral Anaerobic Blood Culture - Preliminary NO GROWTH IN 2 DAYS Resulted 02/02/17 15:20 Blood Peripheral Aerobic Blood Culture - Preliminary NO GROWTH IN 2 DAYS Resulted 02/02/17 15:20 Blood Peripheral Anaerobic Blood Culture - Preliminary NO GROWTH IN 2 DAYS Resulted 02/03/17 03:57 Urine Catheterized Urine Urine Culture - Preliminary NO GROWTH IN 24 HOURS. Resulted IMAGING: Chest X-Ray 02/02/17 0000 Signed Impressions: Service Date/Time: Thursday, February 02, 2017 18:14 - CONCLUSION: 1. Right IJ tunneled dialysis catheter with the tip projecting over the central venous system. 2. Lungs are clear. Bruce Romo MD PHYSICAL EXAMINATION GENERAL: No acute distress. HEENT: sclera appears nonicteric. Oropharynx mucosa appears moist. NECK: Supple without adenopathy. LUNGS: Clear. CHEST: The patient has a Perma catheter in the right upper chest which has no drainage at the entry site. HEART: Regular S1, S2 without murmurs. ABDOMEN: Bowel sounds present, soft, non tender. PD catheter is in place. No visible drainage. EXTREMITIES: No clubbing, cyanosis or edema. SKIN: No rash. PSYCHIATRIC: Flat affect. IMPRESSION Leukocytosis. unclear etiology. WBC LOWER. RECOMMENDATIONS 1. Continue Zyvox. 2. Continue ceftriaxone 3. Monitor blood cultures 4. Follow the white blood cell count. 5. Continue HIV medications. Shady Agosto MD Feb 04, 2017 15:57
[2017-02-04 17:28] LABS: HEMATOCRIT 26.7 % (39.0-51.0)
[2017-02-04 17:33] LABS: REVIEW FLAG FINAL
[2017-02-04] MEDS: cefTRIAXone INJ 1,000 MG in SODIUM CHLORIDE 0.9% INJ 100 ML IV SCH (18:48)
--- NOTE | 2017-02-04 21:16 | HHI.NPPN ---
Subjective History of Present Illness 26-year-old male known to me from before with a past medical history of HIV, history of lymphoma and splenectomy, end-stage renal disease on hemodialysis with a PD catheter inserted recently, history of bilateral above-knee amputations and amputation of the left arm. He was admitted because of generalized weakness, nausea, vomiting and pain at the site of the PermCath and abdominal pain. I was called to see the patient for the management of dialysis. The patient has been on hemodialysis Thursday, and Thursday. He had his last dialysis done on Thursday and the patient has a PD catheter in. He is supposed to be getting training for the peritoneal dialysis. Additional Remarks Patient is alert, pain is better, not in distress. Review of Systems General Constitutional: Fatigue Respiratory Lungs: SOB Cardiovascular Cardiac: HERMAN Gastrointestinal Gastrointestinal: Abdominal Pain Objective Data Data 02/04/17 02/05/17 19:00 07:00 Intake Total 650 ml Balance 650 ml Packed Cells 400 ml Blood Product IV Normal Saline Flush 250 ml Vital Signs Date Time Temp Pulse Resp B/P (MAP) Pulse Ox O2 Delivery O2 Flow Rate FiO2 02/04/17 20:30 98.1 68 17 140/90 (107) 96 02/04/17 16:57 98.2 79 19 101/66 (78) 98 02/04/17 12:20 97.8 81 17 101/62 (75) 96 02/04/17 09:37 98.3 94 16 97/57 (70) 96 02/04/17 09:24 97.8 84 20 111/69 02/04/17 09:09 98.4 77 20 101/60 02/04/17 06:00 99.3 90 16 96/56 (69) 98 02/04/17 00:20 101.8 119 17 100/51 (67) 95 -: 02/04/17 1652 02/04/17 0538 Microbiology 02/04/17 Aerobic Blood Culture, Received Pending 02/04/17 Anaerobic Blood Culture, Received Pending 02/04/17 Aerobic Blood Culture, Received Pending 02/04/17 Anaerobic Blood Culture, Received Pending Physical Exam General Appearance: No Acute Distress, Comfortable Eyes Eye Exam: Pupils Equal Throat Throat Exam: Oral Mucosa [place] & Moist Pulmonary Resp Exam: Breath Sounds Equal, No Distress, Decreased Bases Cardiology CV Exam: Regular, Normal Sinus Rhythm Gastrointestinal/Abdomen GI Exam: Soft, Non-Tender, Bowel Sounds Present, Non-Distended (has PD Catheter in place.) Extremeties Extremeties Remarks Bilateral AKA. Neurologic Neuro Exam: Alert, Awake, Oriented Assessment/Plan Assessment Summary: Anemia of CKD, Hypertension, End Stage Renal Disease Problem List: (1) HIV (human immunodeficiency virus infection) ICD Codes: Z21 - Asymptomatic human immunodeficiency virus [HIV] infection status Status: Chronic (2) HTN (hypertension) ICD Codes: I10 - Essential (primary) hypertension Status: Resolved (3) Abdominal pain ICD Codes: R10.9 - Unspecified abdominal pain (4) Leukocytosis ICD Codes: D72.829 - Elevated white blood cell count, unspecified Status: Chronic (5) Generalized pain ICD Codes: R52 - Pain, unspecified Status: Acute (6) Stage 5 chronic kidney disease ICD Codes: N18.5 - Chronic kidney disease, stage 5 Status: Acute (7) Dependent on hemodialysis ICD Codes: Z99.2 - Dependence on renal dialysis Status: Acute Plan Patient has HD done today, tolerated well. PermCath site is clean, no discharge, no swelling. Remain afebrile, WBC slightly better. Cultures negative so far. HD done yesterday. Wally fever, started on Zyvox. Follow the cultures. HD will be in AM. Problem Qualifiers (1) Leukocytosis: Qualified Codes: D72.829 - Elevated white blood cell count, unspecified Levi Solis MD Feb 04, 2017 21:16
[2017-02-04] MEDS: FAMOTIDINE 20 MG TAB PO SCH (23:32)
[2017-02-04 23:53] LABS: CD4/CD8 RATIO 1.7 (0.86-5.00)
[2017-02-05] VITALS (7 sets, daily range): BP systolic 90–125; BP diastolic 54–73; PULSE 18–103; RESP 16–18; TEMP 98.3–99.2; O2SAT 95–98
[2017-02-05] MEDS: HEPARIN SODIUM - SQ 10,000 UNITS/ML VIAL SQ SCH ×3 (04:00→22:49)
[2017-02-05] MEDS: EUCERIN CREAM 120 GM JAR TOPICAL SCH ×3 (09:00→17:57)
[2017-02-05] MEDS: SODIUM CHLORIDE 0.9% FLUSH 10 ML FLUSH IV FLUSH SCH ×2 (09:00→21:00)
[2017-02-05] MEDS: HYDROCORTISONE 1% CREAM 30 GM TOPICAL SCH ×3 (09:00→17:57)
[2017-02-05] MEDS: CALCIUM ACETATE 667 MG CAP PO SCH ×3 (09:06→17:57)
[2017-02-05] MEDS: DOCUSATE SODIUM 50 MG/SENNA 8.6 MG TAB PO SCH ×2 (09:06→22:48)
[2017-02-05] MEDS: levETIRAcetam 250 MG TAB PO SCH ×2 (09:06→23:05)
[2017-02-05] MEDS: LINEZOLID 600 MG TAB PO SCH ×2 (09:06→22:47)
[2017-02-05] MEDS: ABACAVIR SULFATE 300 MG TAB PO SCH ×2 (09:07→23:04)
[2017-02-05] MEDS: RITONAVIR 100 MG TAB PO SCH ×2 (09:07→23:04)
[2017-02-05] MEDS: FOSAMPRENAVIR CALCIUM PO SCH ×2 (10:32→23:05)
[2017-02-05 10:35] LABS: HEMATOCRIT 30.9 % (39.0-51.0); MEAN CELL VOLUME 82.5 FL (80.0-100.0); MEAN CORPUSCULAR HEMOGLOBIN 25.8 PG (27.0-34.0); MEAN CORPUSCULAR HGB CONC 31.2 % (32.0-36.0); PLATELET COUNT 162 TH/MM3 (150-450); RED BLOOD COUNT 3.75 MIL/MM3 (4.50-5.90); RED CELL DISTRIBUTION WIDTH 16.1 % (11.6-17.2); WHITE BLOOD COUNT 15.9 TH/MM3 (4.0-11.0)
[2017-02-05 10:45] LABS: BICARBONATE 18.7 MEQ/L (21.0-32.0); POTASSIUM 4.8 MEQ/L (3.5-5.1)
--- NOTE | 2017-02-05 10:56 | HHI.NPPN ---
Subjective History of Present Illness 26-year-old male known to me from before with a past medical history of HIV, history of lymphoma and splenectomy, end-stage renal disease on hemodialysis with a PD catheter inserted recently, history of bilateral above-knee amputations and amputation of the left arm. He was admitted because of generalized weakness, nausea, vomiting and pain at the site of the PermCath and abdominal pain. I was called to see the patient for the management of dialysis. The patient has been on hemodialysis Thursday, and Thursday. He had his last dialysis done on Thursday and the patient has a PD catheter in. He is supposed to be getting training for the peritoneal dialysis. Additional Remarks Patient is alert, pain is better, no SOB, eating better. Review of Systems General Constitutional: Fatigue Respiratory Lungs: SOB Cardiovascular Cardiac: HERMAN Gastrointestinal Gastrointestinal: Abdominal Pain Objective Data Data Vital Signs Date Time Temp Pulse Resp B/P (MAP) Pulse Ox O2 Delivery O2 Flow Rate FiO2 02/05/17 08:00 98.8 103 18 109/70 (83) 98 02/05/17 05:45 99.0 92 17 90/54 (66) 96 02/05/17 00:12 99.2 87 17 102/66 (78) 96 02/04/17 20:30 98.1 68 17 140/90 (107) 96 02/04/17 16:57 98.2 79 19 101/66 (78) 98 02/04/17 12:20 97.8 81 17 101/62 (75) 96 -: 02/04/17 1652 02/05/17 0920 Microbiology 02/04/17 Aerobic Blood Culture, Received Pending 02/04/17 Anaerobic Blood Culture, Received Pending 02/04/17 Aerobic Blood Culture, Received Pending 02/04/17 Anaerobic Blood Culture, Received Pending Physical Exam General Appearance: No Acute Distress, Comfortable Eyes Eye Exam: Pupils Equal Throat Throat Exam: Oral Mucosa [place] & Moist Pulmonary Resp Exam: Breath Sounds Equal, No Distress, Decreased Bases Cardiology CV Exam: Regular, Normal Sinus Rhythm Gastrointestinal/Abdomen GI Exam: Soft, Non-Tender, Bowel Sounds Present, Non-Distended (has PD Catheter in place.) Extremeties Extremeties Remarks Bilateral AKA. Neurologic Neuro Exam: Alert, Awake, Oriented Assessment/Plan Assessment Summary: Anemia of CKD, Hypertension, End Stage Renal Disease Problem List: (1) HIV (human immunodeficiency virus infection) ICD Codes: Z21 - Asymptomatic human immunodeficiency virus [HIV] infection status Status: Chronic (2) HTN (hypertension) ICD Codes: I10 - Essential (primary) hypertension Status: Resolved (3) Abdominal pain ICD Codes: R10.9 - Unspecified abdominal pain (4) Leukocytosis ICD Codes: D72.829 - Elevated white blood cell count, unspecified Status: Chronic (5) Generalized pain ICD Codes: R52 - Pain, unspecified Status: Acute (6) Stage 5 chronic kidney disease ICD Codes: N18.5 - Chronic kidney disease, stage 5 Status: Acute (7) Dependent on hemodialysis ICD Codes: Z99.2 - Dependence on renal dialysis Status: Acute Plan Patient has HD done today, tolerated well. PermCath site is clean, no discharge, no swelling. Remain afebrile, WBC slightly better. Cultures negative so far. HD done yesterday. Wally fever, started on Zyvox. Follow the cultures. HD today, Remain afebrile and repeat BC negative so far. Problem Qualifiers (1) Leukocytosis: Qualified Codes: D72.829 - Elevated white blood cell count, unspecified Levi Solis MD Feb 05, 2017 10:56
[2017-02-05 11:13] LABS: CALCIUM-PROTEIN CORRECTED 6.9 MG/DL (8.5-10.1)
[2017-02-05 11:16] LABS: REVIEW FLAG FINAL
[2017-02-05] MEDS: CALCITRIOL 0.25 MCG CAP PO SCH (13:33)
[2017-02-05] MEDS: oxyCODONE/ACETAMINOPHEN 10 MG/325 MG TAB PO PRN ×2 (15:05→23:16)
--- NOTE | 2017-02-05 15:15 | HHI.FPPN ---
Subjective Remarks Mr Yu had no acute events overnight and has no pain s/p transfusion of 1uPRBCs yesterday. He is scheduled for dialysis today where he may receive another unit of blood if Dr Solis decides to do so. H/H is improving. Pt states the emollient solution (hydrocortisone plus eucerin cream) is helping his skin. Nursing reported the pt denied some scheduled meds, an allegation the pt denied. Denies CP, SOB, N/V/D, and DVT pain. (Live Lai MD R1) Objective Vitals Vital Signs Date Time Temp Pulse Resp B/P (MAP) Pulse Ox O2 Delivery O2 Flow Rate FiO2 02/05/17 12:00 98.8 103 18 97/54 (68) 98 02/05/17 09:30 97 21 02/05/17 08:00 98.8 103 18 109/70 (83) 98 02/05/17 05:45 99.0 92 17 90/54 (66) 96 02/05/17 00:12 99.2 87 17 102/66 (78) 96 02/04/17 20:30 98.1 68 17 140/90 (107) 96 02/04/17 16:57 98.2 79 19 101/66 (78) 98 I/O 02/04/17 02/04/17 02/04/17 02/05/17 02/05/17 02/05/17 07:00 15:00 23:00 07:00 15:00 23:00 Intake Total 1938 ml 650 ml 480 ml Output Total 400 ml 2200 ml Balance 1538 ml 650 ml -1720 ml Intake Oral 1038 ml 480 ml IV Total 900 ml Packed Cells 400 ml Blood Product IV Normal Saline Flush 250 ml Output Urine Total 400 ml 2200 ml # Bowel Movements 0 (Live Lai MD R1) Result Diagram: 02/05/17 0820 02/05/17 0920 Imaging Last Impressions Chest X-Ray 02/02/17 0000 Signed Impressions: Service Date/Time: Thursday, February 02, 2017 18:14 - CONCLUSION: 1. Right IJ tunneled dialysis catheter with the tip projecting over the central venous system. 2. Lungs are clear. Bruce Romo MD Objective Remarks O. CONSTITUTIONAL/GEN: well nourished AAM resting in bed in NAD with bilateral BKAs and left lower arm amputated below elbow. EYES: conjunctiva normal, PERRLA, EOMI. ENT: Lips are dry and peeling, no oral lesions. NECK: Supple, non-tender, without lymphadenopathy. LUNGS: Clear lung tony bilaterally with normal respiratory effort. No wheezes or crackles. CARDIOVASCULAR: RRR without murmur, rub, or gallop. GI/ABD: Soft, non-tender, nondistended without masses, without organomegaly. Peritoneal dialysis catheter with wound dressing c/d/i. NEURO: No focal deficits. SKIN: Normal color, dry with flaking and peeling including on his scalp from previous hospitalization antibiotic allergy. HEME/LYMPH: No bruising, petechia or significant adenopathy MUSC: The stumps of the lower extremities do show some chronic wounds which are nonpurulent and less painful to palpation than on presentation PSYCH/MENTAL STATUS: Alert and oriented x 3. Medications and IVs Current Medications Medications (Trade) Dose Ordered Sig/[place] Route Start Time Stop Time Status Last Admin (NS Flush) 2 ml UNSCH PRN IV FLUSH 02/02/17 18:15 (NS Flush) 2 ml BID IV FLUSH 02/02/17 21:00 02/05/17 09:00 (Tylenol) 650 mg Q4H PRN PO 02/02/17 18:15 02/04/17 01:54 (Zofran Inj) 4 mg Q6H PRN IVP 02/02/17 18:15 (Heparin Inj) 5,000 units Q8H SQ 02/02/17 20:00 02/05/17 13:34 (Narcan Inj) 0.4 mg UNSCH PRN IV PUSH 02/02/17 18:15 (Janeen-Colace) 1 tab BID PO 02/02/17 21:00 02/05/17 09:06 (Milk Of Magnesia Liq) 30 ml Q12H PRN PO 02/02/17 18:15 (Senokot) 17.2 mg Q12H PRN PO 02/02/17 18:15 (Dulcolax Supp) 10 mg DAILY PRN RECTAL 02/02/17 18:15 (Lactulose Liq) 30 ml DAILY PRN PO 02/02/17 18:15 (Zyvox) 600 mg Q12H PO 02/02/17 20:00 02/05/17 09:06 Ceftriaxone Sodium 1000 mg/ Sodium Chloride 100 ml @ 200 mls/hr Q24H IV 02/03/17 16:00 02/04/17 18:48 (Tylenol) 650 mg Q6H PRN PO 02/02/17 22:30 (Percocet 5-325 Mg) 1 tab Q6H PRN PO 02/02/17 22:30 02/04/17 05:58 (Percocet 10-325 Mg) 1 tab Q6H PRN PO 02/02/17 22:30 02/04/17 23:30 (Morphine Inj) 4 mg Q3H PRN IV PUSH 02/02/17 22:30 (Narcan Inj) 0.4 mg UNSCH PRN IV PUSH 02/02/17 22:30 Sodium Chloride 1,000 ml @ 0 mls/hr Q0M PRN OTHER 02/02/17 22:32 (Heparin Inj) 8,000 units UNSCH PRN IV FLUSH 02/02/17 22:45 Sodium Chloride 1,000 ml @ 200 mls/hr Q5H PRN IV 02/02/17 22:32 Sodium Chloride 1,000 ml @ 0 mls/hr Q0M PRN OTHER 02/02/17 22:32 (Mannitol Inj) 12.5 gm UNSCH PRN IV 02/02/17 22:45 Albumin Human 100 ml @ 60 mls/hr UNSCH PRN IV 02/02/17 22:45 (NS Flush) 5 ml UNSCH PRN IV FLUSH 02/02/17 22:45 (Heparin Inj) UNSCH PRN .XX 02/02/17 22:45 (Gentamicin (Dialysis) Inj) 20 mg UNSCH PRN OTHER 02/02/17 22:45 02/03/17 12:15 (Zofran Inj) 4 mg UNSCH PRN IV PUSH 02/02/17 22:45 (Tylenol) 650 mg UNSCH PRN PO 02/02/17 22:45 (Benadryl) 25 mg UNSCH PRN PO 02/02/17 22:45 02/04/17 12:22 (Nitrostat Sl) 0.4 mg UNSCH PRN SL 02/02/17 22:45 (Catapres) 0.1 mg UNSCH PRN PO 02/02/17 22:45 (Epogen Inj) 10,000 units UNSCH PRN IV PUSH 02/02/17 22:45 02/03/17 12:15 (Gelfoam 12 Mm/7 Mm Top) 1 foam UNSCH PRN TOP 02/02/17 22:45 (Ziagen) 300 mg BID PO 02/03/17 09:00 02/05/17 09:07 (Pepcid) 20 mg HS PO 02/03/17 21:00 02/04/17 23:32 (Lexiva) 700 mg BID PO 02/03/17 09:00 02/05/17 10:32 (Epivir) 150 mg DAILY PO 02/03/17 09:00 02/05/17 09:06 (Keppra) 750 mg Q12HR PO 02/03/17 09:00 02/05/17 09:06 (Norvir) 100 mg BID PO 02/03/17 09:00 02/05/17 09:07 (Blistex Lip [place]) 1 applic UNSCH PRN TOPICAL 02/03/17 00:15 02/03/17 04:40 (Eucerin Cream) 1 applic TID TOPICAL 02/03/17 18:00 02/04/17 18:00 (Hydrocortisone 1% Cream) 1 applic TID TOPICAL 02/03/17 18:00 02/04/17 18:00 (Tylenol) 650 mg Q4H PRN PO 02/04/17 06:30 (Benadryl) 25 mg Q4H PRN PO 02/04/17 06:30 (Phoslo) 1,334 mg TID PO 02/05/17 09:00 02/05/17 13:33 (Rocaltrol) 0.25 mcg DAILY PO 02/05/17 11:00 02/05/17 13:33 (Live Lai MD R1) Urinary Catheter: No (Live Lai MD R1) A/P Assessment and Plan 26 year old male with HIV, ESRD on dialysis, history of lymphoma, and s/p splenectomy presents with leukocytosis of unknown etiology and pain around the PermCath and peritoneal dialysis catheter sites. He has no complaint of pain today. Isolated fingerstick glucose at 38 possible artifact from delay in blood draw to actual read time in lab; however, follow up fingersticks after eating have been 72 and 75; continue fingersticks while awake q4h Seen and discussed with Rip Osorio and Edwina Discharge Planning Possibly next 2-3 days. Patient has shown marked improvement and is s/p transfusion of 1u PRBCs today with Hgb 9.7 today vs 6.7 yesterday. Possible transfusion of on additional unit today during HD. (Live Lai MD R1) Attending Attestation Patient seen and examined. Case reviewed and discussed with the resident team. Agree with plan of care as discussed with me and documented in the resident note. (Cindy Osorio MD) Problem List: (1) Anemia Status: Acute Plan: -H/H 9.7 / 30.9 today -Transfused 1 unit leuko-reduced red blood cells on 02/04 -Dr Solis may transfuse a second unit during dialysis today -Follow H&H (2) SIRS (systemic inflammatory response syndrome) ICD Codes: R65.10 - Systemic inflammatory response syndrome (SIRS) of non- infectious origin without acute organ dysfunction Status: Resolved Plan: Met criteria of SIRS on admission with tachycardia, borderline low blood pressures, leukocytosis. Afebrile. Source of infection unidentified. Complaining of pain around PermCath and peritoneal dialysis catheter sites. - Urine culture and repeat Blood cx NGTD in spite of continued leukocytosis - Chest x-ray without evidence for pneumonia - Infectious disease following - Continue Ceftriaxone and Linezolid, he is status-post splenectomy - CD4 count 275 on 02/03/17 vs 475 on 08/09/14--taking retrovirals in hospital; questionable whether he is complaint outside the hospital - Defer to ID and nephrology on whether to pull indwelling catheters (3) Stage 5 chronic kidney disease ICD Codes: N18.5 - Chronic kidney disease, stage 5 Status: Acute Plan: Patient with stage 5 chronic kidney disease, recently started hemodialysis. Currently getting dialysis through PermCath, with plans for eventual peritoneal dialysis. On TTS schedule for dialysis. -Appreciate nephrology advice (4) Human immunodeficiency virus (HIV) positive Status: Chronic Plan: - Continue antiretrovirals - CD4 count 275 on 02/03/17 vs 475 on 08/09/14--taking retrovirals in hospital; questionable whether he is complaint outside the hospital - Infectious disease consulted and following recs - Not on prophylactic antibiotics (5) Amputated below knee Status: Chronic Plan: - Needs assistance - Per PT: Patient does not need physical therapy at home - Case management (6) Amputated below elbow Status: Chronic Plan: - Needs assistance - Physical therapy/Occupational therapy - Case management (7) Nutrition, metabolism, and development symptoms ICD Codes: R63.8 - Other symptoms and signs concerning food and fluid intake Status: Acute Plan: Oral fluids Renal diet Monitor electrolytes, hyperkalemic Dialysis TTS, nephrology on board (8) Pressure ulcer of left leg, stage 1 ICD Codes: L89.891 - Pressure ulcer of other site, stage 1 Status: Chronic Plan: Wound care managing (9) Pressure ulcer of right leg, stage 1 ICD Codes: L89.891 - Pressure ulcer of other site, stage 1 Status: Chronic Plan: Wound care managing (10) Dry skin dermatitis ICD Codes: L85.3 - Xerosis cutis Status: Acute Plan: Continue Eucerin and 1% hydrocortisone cream, 50-50, to apply to dry scaling skin twice a day--pt states this is helping (11) No contraindication to deep vein thrombosis (DVT) prophylaxis ICD Codes: Z78.9 - Other specified health status Status: Acute Plan: Heparin 5000 units every 8 hours (Live Lai MD R1) Problem Qualifiers (1) Amputated below knee: Qualified Codes: Z89.512 - Acquired absence of left leg below knee; Z89.511 - Acquired absence of right leg below knee (2) Amputated below elbow: Qualified Codes: Z89.212 - Acquired absence of left upper limb below elbow Live Lai MD R1 Feb 05, 2017 15:15 Cindy Osorio MD Feb 11, 2017 09:05
[2017-02-05] MEDS: cefTRIAXone INJ 1,000 MG in SODIUM CHLORIDE 0.9% INJ 100 ML IV SCH (16:00)
[2017-02-05] MEDS: EPOETIN ALFA 10,000 UNITS/ML VIAL IV PUSH PRN (20:03)
[2017-02-05] MEDS: GENTAMICIN SULFATE (DIALYSIS USE ONLY) 20 MG/2 ML VIAL OTHER PRN (20:03)
[2017-02-05] MEDS: HEPARIN SODIUM - IV 10,000 UNITS/10 ML VIAL PRN (20:03)
[2017-02-05] MEDS: diphenhydrAMINE HCL 25 MG CAP PO PRN (20:04)
[2017-02-05] MEDS: FAMOTIDINE 20 MG TAB PO SCH (22:48)
[2017-02-06 00:40] VITALS: BP 110/70; PULSE 80; RESP 16; TEMP 98.1; O2SAT 96
[2017-02-06] MEDS: HEPARIN SODIUM - SQ 10,000 UNITS/ML VIAL SQ SCH ×2 (03:13→13:03)
[2017-02-06] MEDS: diphenhydrAMINE HCL 25 MG CAP PO PRN (03:14)
[2017-02-06 04:00] VITALS: BP 99/68; PULSE 76; RESP 17; TEMP 97.7; O2SAT 97
[2017-02-06 07:05] LABS: AUTOMATED NEUTROPHIL # 5.2 TH/MM3 (1.8-7.7); BASOPHIL # 0.2 TH/MM3 (0-0.2); EOSINOPHIL # 0.9 TH/MM3 (0-0.4); EOSINOPHIL % 8.7 % (0.0-4.0); HEMATOCRIT 29.5 % (39.0-51.0); LYMPH % 33.7 % (9.0-44.0); LYMPHOCYTE # 3.5 TH/MM3 (1.0-4.8); MEAN CORPUSCULAR HEMOGLOBIN 26.2 PG (27.0-34.0); MEAN CORPUSCULAR HGB CONC 32.4 % (32.0-36.0); MONO % 6.1 % (0.0-8.0); NEUT % 49.5 % (16.0-70.0); PLATELET COUNT 177 TH/MM3 (150-450); RED BLOOD COUNT 3.64 MIL/MM3 (4.50-5.90); RED CELL DISTRIBUTION WIDTH 14.9 % (11.6-17.2); WHITE BLOOD COUNT 10.5 TH/MM3 (4.0-11.0)
[2017-02-06 07:13] LABS: HEMO FLAGS AUTO DIFF
[2017-02-06 07:40] LABS: ALKALINE PHOSPHATASE 134 U/L (45-117); ALT (GPT) 24 U/L (12-78); ANION GAP 11 MEQ/L (5-15); AST (GOT) 23 U/L (15-37); BICARBONATE 28.4 MEQ/L (21.0-32.0); BLOOD UREA NITROGEN 16 MG/DL (7-18); CHLORIDE 99 MEQ/L (98-107); GLOMERULAR FILTRATION RATE 23 ML/MIN (>89); MAGNESIUM 1.8 MG/DL (1.5-2.5); POTASSIUM 3.7 MEQ/L (3.5-5.1); SODIUM (NA) 138 MEQ/L (136-145); TOTAL BILIRUBIN ADULT 0.2 MG/DL (0.2-1.0)
[2017-02-06] MEDS: CALCIUM ACETATE 667 MG CAP PO SCH ×3 (08:19→17:25)
[2017-02-06] MEDS: CALCITRIOL 0.25 MCG CAP PO SCH (08:19)
[2017-02-06] MEDS: RITONAVIR 100 MG TAB PO SCH (08:19)
[2017-02-06] MEDS: LINEZOLID 600 MG TAB PO SCH (08:19)
[2017-02-06] MEDS: SODIUM CHLORIDE 0.9% FLUSH 10 ML FLUSH IV FLUSH SCH ×2 (08:20→21:00)
[2017-02-06] MEDS: ABACAVIR SULFATE 300 MG TAB PO SCH (08:20)
[2017-02-06] MEDS: FOSAMPRENAVIR CALCIUM PO SCH (08:20)
[2017-02-06] MEDS: levETIRAcetam 250 MG TAB PO SCH (08:20)
[2017-02-06] MEDS: DOCUSATE SODIUM 50 MG/SENNA 8.6 MG TAB PO SCH (08:20)
[2017-02-06 08:23] LABS: BASOPHILS 1 % (0-2); CORRECTED NUCLEATED RBC 18 /100 WBC (0-0); EOSINOPHILS 18 % (0-4); PLATELET ESTIMATE SMEAR NORMAL (NORMAL); POLYS (SEG NEUTROPHILS) 57 % (16-70); WBC DIFF SAMPLE 100
[2017-02-06 08:24] LABS: HOWELL-JOLLY BODIES PRESENT (NONE SEEN); PLATELET MORPHOLOGY ENLARGED (NORMAL); SCAN/DIFF FINAL DIFF MANUAL; TARGET CELLS 1+ (NORMAL)
[2017-02-06] MEDS: EUCERIN CREAM 120 GM JAR TOPICAL SCH ×3 (08:32→17:32)
[2017-02-06] MEDS: HYDROCORTISONE 1% CREAM 30 GM TOPICAL SCH ×3 (08:32→17:33)
[2017-02-06 08:43] VITALS: BP 116/76; PULSE 70; RESP 17; TEMP 98.2; O2SAT 98
--- NOTE | 2017-02-06 10:03 | HHI.NPPN ---
Subjective History of Present Illness 26-year-old male known to me from before with a past medical history of HIV, history of lymphoma and splenectomy, end-stage renal disease on hemodialysis with a PD catheter inserted recently, history of bilateral above-knee amputations and amputation of the left arm. He was admitted because of generalized weakness, nausea, vomiting and pain at the site of the PermCath and abdominal pain. I was called to see the patient for the management of dialysis. The patient has been on hemodialysis Thursday, and Thursday. He had his last dialysis done on Thursday and the patient has a PD catheter in. He is supposed to be getting training for the peritoneal dialysis. Additional Remarks Patient is alert, pain is better, no SOB, remain afebrile, eating well. Review of Systems General Constitutional: Fatigue Respiratory Lungs: SOB Cardiovascular Cardiac: HERMAN Gastrointestinal Gastrointestinal: Abdominal Pain Objective Data Data Vital Signs Date Time Temp Pulse Resp B/P (MAP) Pulse Ox O2 Delivery O2 Flow Rate FiO2 02/06/17 08:43 98.2 70 17 116/76 (89) 98 02/06/17 04:00 97.7 76 17 99/68 (78) 97 02/06/17 00:40 98.1 80 16 110/70 (83) 96 02/05/17 21:45 98.4 82 16 125/73 (90) 95 02/05/17 16:00 98.3 18 18 93/56 (68) 98 02/05/17 12:00 98.8 103 18 97/54 (68) 98 -: 02/06/17 0622 02/06/17 0622 Physical Exam General Appearance: No Acute Distress, Comfortable Eyes Eye Exam: Pupils Equal Throat Throat Exam: Oral Mucosa [place] & Moist Pulmonary Resp Exam: Breath Sounds Equal, No Distress, Decreased Bases Cardiology CV Exam: Regular, Normal Sinus Rhythm Gastrointestinal/Abdomen GI Exam: Soft, Non-Tender, Bowel Sounds Present, Non-Distended (has PD Catheter in place.) Extremeties Extremeties Remarks Bilateral AKA. Neurologic Neuro Exam: Alert, Awake, Oriented Assessment/Plan Assessment Summary: Anemia of CKD, Hypertension, End Stage Renal Disease Problem List: (1) HIV (human immunodeficiency virus infection) ICD Codes: Z21 - Asymptomatic human immunodeficiency virus [HIV] infection status Status: Chronic (2) HTN (hypertension) ICD Codes: I10 - Essential (primary) hypertension Status: Resolved (3) Abdominal pain ICD Codes: R10.9 - Unspecified abdominal pain (4) Leukocytosis ICD Codes: D72.829 - Elevated white blood cell count, unspecified Status: Chronic (5) Generalized pain ICD Codes: R52 - Pain, unspecified Status: Acute (6) Stage 5 chronic kidney disease ICD Codes: N18.5 - Chronic kidney disease, stage 5 Status: Acute (7) Dependent on hemodialysis ICD Codes: Z99.2 - Dependence on renal dialysis Status: Acute Plan Patient has HD done today, tolerated well. PermCath site is clean, no discharge, no swelling. Remain afebrile, WBC slightly better. Cultures negative so far. HD done yesterday. Wally fever, started on Zyvox. Follow the cultures. HD done yesterday and tolerated well. Hgb. is stable after transfusion. BC remain negative and afebrile. Possible D/C, if discharged, to continue HD as out patient. Problem Qualifiers (1) Leukocytosis: Qualified Codes: D72.829 - Elevated white blood cell count, unspecified Levi Solis MD Feb 06, 2017 10:03
--- NOTE | 2017-02-06 11:46 | HHI.FPPN ---
Subjective Remarks Patient was lying in bed this morning, he denies any new symptoms, no fever, chest pain, or shortness of breath. He states that he feels alright. Objective Vitals Vital Signs Date Time Temp Pulse Resp B/P (MAP) Pulse Ox O2 Delivery O2 Flow Rate FiO2 02/06/17 08:43 98.2 70 17 116/76 (89) 98 02/06/17 04:00 97.7 76 17 99/68 (78) 97 02/06/17 00:40 98.1 80 16 110/70 (83) 96 02/05/17 21:45 98.4 82 16 125/73 (90) 95 02/05/17 16:00 98.3 18 18 93/56 (68) 98 02/05/17 12:00 98.8 103 18 97/54 (68) 98 I/O 02/05/17 02/05/17 02/05/17 02/06/17 02/06/17 02/06/17 07:00 15:00 23:00 07:00 15:00 23:00 Intake Total 480 ml 1200 ml 600 ml Output Total 2200 ml 602 ml 2050 ml 300 ml Balance -1720 ml -602 ml -850 ml 300 ml Intake Oral 480 ml 1200 ml 600 ml Output Urine Total 2200 ml 600 ml 550 ml 300 ml Stool Total 2 ml Hemodialysis 1500 ml # Bowel Movements 0 0 Result Diagram: 02/06/1762102/06/17621 Objective Remarks O. CONSTITUTIONAL/GEN: well nourished AAM resting in bed in NAD with bilateral BKAs and left lower arm amputated below elbow. EYES: conjunctiva normal, PERRLA, EOMI. ENT: Lips are dry and peeling, no oral lesions. NECK: Supple, non-tender, without lymphadenopathy. LUNGS: Clear lung tony bilaterally with normal respiratory effort. No wheezes or crackles. CARDIOVASCULAR: RRR without murmur, rub, or gallop. GI/ABD: Soft, non-tender, nondistended without masses, without organomegaly. Peritoneal dialysis catheter with wound dressing c/d/i. NEURO: No focal deficits. SKIN: Normal color, dry with flaking and peeling including on his scalp from previous hospitalization antibiotic allergy. HEME/LYMPH: No bruising, petechia or significant adenopathy MUSC: The stumps of the lower extremities are not tender to palpation. PSYCH/MENTAL STATUS: Alert and oriented x 3. A/P Assessment and Plan 26 year old male with HIV, ESRD on dialysis, history of lymphoma, and s/p splenectomy presents with leukocytosis of unknown etiology and pain around the PermCath and peritoneal dialysis catheter sites that have resolved. Seen and examined with Dr. Lai Discharge Planning Possibly tomorrow 01/07/17. If white blood cell count is normal, okay to discharge home tomorrow per infectious disease recommendations. Problem List: (1) Anemia Status: Acute Plan: -Stable H/H at 9.5/29.5 today -Transfused 1 unit leuko-reduced red blood cells on 02/04 -Continue to monitor (2) SIRS (systemic inflammatory response syndrome) ICD Codes: R65.10 - Systemic inflammatory response syndrome (SIRS) of non- infectious origin without acute organ dysfunction Status: Resolved Plan: Met criteria of SIRS on admission with tachycardia, borderline low blood pressures, leukocytosis. Afebrile. Source of infection unidentified. - Urine culture and repeat Blood cx NGTD - Infectious disease following - Discontinue Ceftriaxone and Linezolid today 02/06/17 - CD4 count 275 on 02/03/17 vs 475 on 08/09/14--taking retrovirals in hospital; questionable whether he is compliant outside the hospital - WBC scan if white blood cell increases tomorrow (3) Stage 5 chronic kidney disease ICD Codes: N18.5 - Chronic kidney disease, stage 5 Status: Acute Plan: Patient with stage 5 chronic kidney disease, recently started hemodialysis. Currently getting dialysis through [facility], with plans for eventual peritoneal dialysis. On TTS schedule for dialysis. -Appreciate nephrology advice (4) Human immunodeficiency virus (HIV) positive Status: Chronic Plan: - Continue antiretrovirals - CD4 count 275 on 02/03/17 vs 475 on 08/09/14--taking retrovirals in hospital; questionable whether he is compliant outside the hospital (5) Amputated below knee Status: Chronic Plan: - Needs assistance - Per PT: Patient does not need physical therapy at home (6) Amputated below elbow Status: Chronic Plan: - Needs assistance - Physical therapy/Occupational therapy (7) Pressure ulcer of left leg, stage 1 ICD Codes: L89.891 - Pressure ulcer of other site, stage 1 Status: Chronic Plan: Wound care managing (8) Pressure ulcer of right leg, stage 1 ICD Codes: L89.891 - Pressure ulcer of other site, stage 1 Status: Chronic Plan: Wound care managing (9) Dry skin dermatitis ICD Codes: L85.3 - Xerosis cutis Status: Acute Plan: Continue Eucerin and 1% hydrocortisone cream, 50-50, to apply to dry scaling skin twice a day--pt states this is helping (10) No contraindication to deep vein thrombosis (DVT) prophylaxis ICD Codes: Z78.9 - Other specified health status Status: Acute Plan: Heparin 5000 units every 8 hours (11) Nutrition, metabolism, and development symptoms ICD Codes: R63.8 - Other symptoms and signs concerning food and fluid intake Status: Acute Plan: Oral fluids Renal diet Monitor electrolytes, hyperkalemic Dialysis TTS, nephrology on board Problem Qualifiers (1) Amputated below knee: Qualified Codes: Z89.512 - Acquired absence of left leg below knee; Z89.511 - Acquired absence of right leg below knee (2) Amputated below elbow: Qualified Codes: Z89.212 - Acquired absence of left upper limb below elbow Luz Bland MD R2 Feb 06, 2017 11:46
[2017-02-06 12:46] VITALS: BP 108/68; PULSE 77; RESP 16; TEMP 98.4; O2SAT 97
--- NOTE | 2017-02-06 13:28 | HHI.IDPN ---
Note Infectious Disease Note Patient is awake. Says he feels okay and denies pains. A little more cooperative. However scrolling through his cellphone while I am asking him questions. Afebrile. PAST MEDICAL HISTORY 1. HIV disease 2. History of lymphoma 3. End-stage renal disease on hemodialysis. 4. Recent peritoneal dialysis catheter placement 5. Bilateral amputation 6. Amputation of the left upper extremity below the elbow. 7. Splenectomy. ALLERGIES AMOXICILLIN PENICILLIN ANTIBIOTICS Ceftriaxone Zyvox Current Medications Medications (Trade) Dose Ordered Sig/[place] Route PRN Reason Start Time Stop Time Status Last Admin Dose Admin Sodium Chloride (NS Flush) 2 ml UNSCH PRN IV FLUSH FLUSH AFTER USING IV ACCESS 02/02/17 18:15 Sodium Chloride (NS Flush) 2 ml BID IV FLUSH 02/02/17 21:00 02/06/17 08:20 Acetaminophen (Tylenol) 650 mg Q4H PRN PO TEMP > 100.4 02/02/17 18:15 02/04/17 01:54 Ondansetron HCl (Zofran Inj) 4 mg Q6H PRN IVP NAUSEA OR VOMITING 02/02/17 18:15 Heparin Sodium (Porcine) (Heparin Inj) 5,000 units Q8H SQ 02/02/17 20:00 02/06/17 13:03 Naloxone HCl (Narcan Inj) 0.4 mg UNSCH PRN IV PUSH SEE LABEL COMMENTS 02/02/17 18:15 Senna/Docusate Sodium (Janeen-Colace) 1 tab BID PO 02/02/17 21:00 02/06/17 08:20 Magnesium Hydroxide (Milk Of Magnesia Liq) 30 ml Q12H PRN PO Mild constipation 02/02/17 18:15 Sennosides (Senokot) 17.2 mg Q12H PRN PO Moderate constipation 02/02/17 18:15 Bisacodyl (Dulcolax Supp) 10 mg DAILY PRN RECTAL SEVERE CONSITIPATION 02/02/17 18:15 Lactulose (Lactulose Liq) 30 ml DAILY PRN PO SEVERE CONSITIPATION 02/02/17 18:15 Linezolid (Zyvox) 600 mg Q12H PO 02/02/17 20:00 02/06/17 08:19 Ceftriaxone Sodium 1000 mg/ Sodium Chloride 100 ml @ 200 mls/hr Q24H IV 02/03/17 16:00 02/05/17 16:00 Acetaminophen (Tylenol) 650 mg Q6H PRN PO PAIN SCALE 1 TO 2 02/02/17 22:30 Oxycodone/ Acetaminophen (Percocet 5-325 Mg) 1 tab Q6H PRN PO PAIN SCALE 3 TO 5 02/02/17 22:30 02/04/17 05:58 Oxycodone/ Acetaminophen (Percocet 10-325 Mg) 1 tab Q6H PRN PO PAIN SCALE 6 TO 10 02/02/17 22:30 02/05/17 23:16 Morphine Sulfate (Morphine Inj) 4 mg Q3H PRN IV PUSH BREAKTHROUGH PAIN 02/02/17 22:30 Naloxone HCl (Narcan Inj) 0.4 mg UNSCH PRN IV PUSH SEE LABEL COMMENTS 02/02/17 22:30 Sodium Chloride 1,000 ml @ 0 mls/hr Q0M PRN OTHER For Prime & Rinse Back 02/02/17 22:32 02/05/17 20:02 Heparin Sodium (Porcine) (Heparin Inj) 8,000 units UNSCH PRN IV FLUSH WITH DIALYSIS 02/02/17 22:45 Sodium Chloride 1,000 ml @ 200 mls/hr Q5H PRN IV WITH DIALYSIS 02/02/17 22:32 Sodium Chloride 1,000 ml @ 0 mls/hr Q0M PRN OTHER WITH DIALYSIS 02/02/17 22:32 Mannitol (Mannitol Inj) 12.5 gm UNSCH PRN IV WITH DIALYSIS 02/02/17 22:45 Albumin Human 100 ml @ 60 mls/hr UNSCH PRN IV WITH DIALYSIS 02/02/17 22:45 Sodium Chloride (NS Flush) 5 ml UNSCH PRN IV FLUSH WITH DIALYSIS 02/02/17 22:45 02/05/17 20:02 Heparin Sodium (Porcine) (Heparin Inj) UNSCH PRN .XX WITH DIALYSIS 02/02/17 22:45 02/05/17 20:03 Gentamicin Sulfate (Gentamicin (Dialysis) Inj) 20 mg UNSCH PRN OTHER WITH DIALYSIS 02/02/17 22:45 02/05/17 20:03 Ondansetron HCl (Zofran Inj) 4 mg UNSCH PRN IV PUSH WITH DIALYSIS 02/02/17 22:45 Acetaminophen (Tylenol) 650 mg UNSCH PRN PO forheadache,pain1-10,temp>101F 02/02/17 22:45 Diphenhydramine HCl (Benadryl) 25 mg UNSCH PRN PO for hives/itching/anaphylaxis 02/02/17 22:45 02/06/17 03:14 Nitroglycerin (Nitrostat Sl) 0.4 mg UNSCH PRN SL CHEST PAIN 02/02/17 22:45 Clonidine (Catapres) 0.1 mg UNSCH PRN PO for BP > 180/100 X 2 readings 02/02/17 22:45 Epoetin Jesse (Epogen Inj) 10,000 units UNSCH PRN IV PUSH WITH DIALYSIS 02/02/17 22:45 02/05/17 20:03 Gelatin (Gelfoam 12 Mm/7 Mm Top) 1 foam UNSCH PRN TOP SEE LABEL COMMENTS 02/02/17 22:45 Abacavir Sulfate (Ziagen) 300 mg BID PO 02/03/17 09:00 02/06/17 08:20 Famotidine (Pepcid) 20 mg HS PO 02/03/17 21:00 02/05/17 22:48 Fosamprenavir Calcium (Lexiva) 700 mg BID PO 02/03/17 09:00 02/06/17 08:20 Lamivudine (Epivir) 150 mg DAILY PO 02/03/17 09:00 02/06/17 08:19 Levetriacetam (Keppra) 750 mg Q12HR PO 02/03/17 09:00 02/06/17 08:20 Ritonavir (Norvir) 100 mg BID PO 02/03/17 09:00 02/06/17 08:19 Oxybenzone/ Padimate O/ Dimethicone (Blistex Lip [place]) 1 applic UNSCH PRN TOPICAL CHAPPED LIPS 02/03/17 00:15 02/03/17 04:40 Multi-Ingredient Ointment (Eucerin Cream) 1 applic TID TOPICAL 02/03/17 18:00 02/06/17 08:32 Hydrocortisone (Hydrocortisone 1% Cream) 1 applic TID TOPICAL 02/03/17 18:00 02/06/17 08:32 Acetaminophen (Tylenol) 650 mg Q4H PRN PO SEE LABEL COMMENTS 02/04/17 06:30 Diphenhydramine HCl (Benadryl) 25 mg Q4H PRN PO SEE LABEL COMMENTS 02/04/17 06:30 Calcium Acetate (Phoslo) 1,334 mg TID PO 02/05/17 09:00 02/06/17 13:02 Calcitriol (Rocaltrol) 0.25 mcg DAILY PO 02/05/17 11:00 02/06/17 08:19 OBJECTIVE: Vital Signs Date Time Temp Pulse Resp B/P (MAP) Pulse Ox O2 Delivery O2 Flow Rate FiO2 02/06/17 12:46 98.4 77 16 108/68 (81) 97 02/06/17 08:43 98.2 70 17 116/76 (89) 98 02/06/17 04:00 97.7 76 17 99/68 (78) 97 02/06/17 00:40 98.1 80 16 110/70 (83) 96 02/05/17 21:45 98.4 82 16 125/73 (90) 95 02/05/17 16:00 98.3 18 18 93/56 (68) 98 Laboratory Tests Test 02/04/17 16:52 02/05/17 08:20 02/06/17 06:22 Hemoglobin 8.7 GM/DL 9.7 GM/DL 9.5 GM/DL Hematocrit 26.7 % 30.9 % 29.5 % White Blood Count 15.9 TH/MM3 10.5 TH/MM3 Red Blood Count 3.75 MIL/MM3 3.64 MIL/MM3 Mean Corpuscular Volume 82.5 FL 81.0 FL Mean Corpuscular Hemoglobin 25.8 PG 26.2 PG Mean Corpuscular Hemoglobin Concent 31.2 % 32.4 % Red Cell Distribution Width 16.1 % 14.9 % Platelet Count 162 TH/MM3 177 TH/MM3 Mean Platelet Volume 10.0 FL 10.6 FL Neutrophils (%) (Auto) 49.5 % Lymphocytes (%) (Auto) 33.7 % Monocytes (%) (Auto) 6.1 % Eosinophils (%) (Auto) 8.7 % Basophils (%) (Auto) 2.0 % Neutrophils # (Auto) 5.2 TH/MM3 Lymphocytes # (Auto) 3.5 TH/MM3 Monocytes # (Auto) 0.6 TH/MM3 Eosinophils # (Auto) 0.9 TH/MM3 Basophils # (Auto) 0.2 TH/MM3 CBC Comment AUTO DIFF Differential Total Cells Counted 100 Neutrophils % (Manual) 57 % Lymphocytes % 22 % Monocytes % 2 % Eosinophils % 18 % Basophils % 1 % Neutrophils # (Manual) 6.0 TH/MM3 Nucleated Red Blood Cells 18 /100 WBC Differential Comment FINAL DIFF MANUAL Platelet Estimate NORMAL Platelet Morphology Comment ENLARGED Target Cells 1+ [place] Bodies PRESENT Laboratory Tests Test 02/05/17 09:20 02/06/17 06:22 Blood Urea Nitrogen 38 MG/DL 16 MG/DL Creatinine 6.11 MG/DL 3.84 MG/DL Random Glucose 38 MG/DL 94 MG/DL Total Protein 6.7 GM/DL 6.3 GM/DL Calcium Level 6.7 MG/DL 8.4 MG/DL Sodium Level 135 MEQ/L 138 MEQ/L Potassium Level 4.8 MEQ/L 3.7 MEQ/L Chloride Level 101 MEQ/L 99 MEQ/L Carbon Dioxide Level 18.7 MEQ/L 28.4 MEQ/L Anion Gap 15 MEQ/L 11 MEQ/L Estimat Glomerular Filtration Rate 13 ML/MIN 23 ML/MIN Protein Corrected Calcium 6.9 MG/DL Albumin 2.1 GM/DL Phosphorus Level 5.9 MG/DL Magnesium Level 1.8 MG/DL Alkaline Phosphatase 134 U/L Aspartate Amino Transf (AST/SGOT) 23 U/L Alanine Aminotransferase (ALT/SGPT) 24 U/L Total Bilirubin 0.2 MG/DL Microbiology Date/Time Source Procedure Growth Status 02/04/17 16:52 Blood Peripheral Aerobic Blood Culture - Preliminary NO GROWTH IN 2 DAYS Resulted 02/04/17 16:52 Blood Peripheral Anaerobic Blood Culture - Preliminary NO GROWTH IN 2 DAYS Resulted 02/04/17 16:52 Blood Peripheral Aerobic Blood Culture - Preliminary NO GROWTH IN 2 DAYS Resulted 02/04/17 16:52 Blood Peripheral Anaerobic Blood Culture - Preliminary NO GROWTH IN 2 DAYS Resulted IMAGING: Chest X-Ray 02/02/17 0000 Signed Impressions: Service Date/Time: Thursday, February 02, 2017 18:14 - CONCLUSION: 1. Right IJ tunneled dialysis catheter with the tip projecting over the central venous system. 2. Lungs are clear. Bruce Romo MD PHYSICAL EXAMINATION GENERAL: No acute distress. HEENT: sclera appears nonicteric. Oropharynx mucosa appears moist. NECK: Supple without adenopathy. LUNGS: Clear breath sounds. CHEST: The patient has a Perma catheter in the right upper chest which has no drainage at the entry site. HEART: Regular S1, S2 without murmurs. ABDOMEN: Bowel sounds present, soft, non tender. PD catheter is in place. EXTREMITIES: No clubbing, cyanosis or edema. SKIN: No rash. PSYCHIATRIC: Flat affect. IMPRESSION Leukocytosis. unclear etiology. now normal. No foci of infection. Clinically stable. RECOMMENDATIONS 1. Stop Zyvox. 2. Stop ceftriaxone 3. Follow the white blood cell count tomorrow and if normal he can be discharged. 4. Continue HIV medications. 5. If the WBC increases he should have a WBC scan. Shady Agosto MD Feb 06, 2017 13:28
[2017-02-06 16:27] VITALS: BP 119/77; PULSE 78; RESP 16; TEMP 98.3; O2SAT 98
[2017-02-06 21:30] VITALS: BP 110/54; PULSE 69; RESP 17; TEMP 98.2; O2SAT 100
[2017-02-07] VITALS: BP 106/62; PULSE 64; RESP 16; TEMP 98.1; O2SAT 99
[2017-02-07] MEDS: levETIRAcetam 250 MG TAB PO SCH ×3 (00:16→22:15)
[2017-02-07] MEDS: FOSAMPRENAVIR CALCIUM PO SCH ×3 (00:17→22:15)
[2017-02-07] MEDS: RITONAVIR 100 MG TAB PO SCH ×3 (00:17→22:15)
[2017-02-07] MEDS: ABACAVIR SULFATE 300 MG TAB PO SCH ×3 (00:17→22:15)
[2017-02-07] MEDS: DOCUSATE SODIUM 50 MG/SENNA 8.6 MG TAB PO SCH ×3 (00:18→22:15)
[2017-02-07] MEDS: FAMOTIDINE 20 MG TAB PO SCH ×2 (00:18→22:16)
[2017-02-07] MEDS: HEPARIN SODIUM - SQ 10,000 UNITS/ML VIAL SQ SCH ×4 (00:18→22:14)
[2017-02-07] MEDS: oxyCODONE/ACETAMINOPHEN 5 MG/325 MG TAB PO PRN (03:56)
[2017-02-07 04:00] VITALS: BP 99/59; PULSE 69; RESP 16; TEMP 98; O2SAT 100
[2017-02-07 07:33] LABS: HEMATOCRIT 32.1 % (39.0-51.0); MEAN CELL VOLUME 81.7 FL (80.0-100.0); MEAN CORPUSCULAR HEMOGLOBIN 25.8 PG (27.0-34.0); MEAN CORPUSCULAR HGB CONC 31.6 % (32.0-36.0); PLATELET COUNT 198 TH/MM3 (150-450); RED BLOOD COUNT 3.93 MIL/MM3 (4.50-5.90); RED CELL DISTRIBUTION WIDTH 16.6 % (11.6-17.2); WHITE BLOOD COUNT 11.8 TH/MM3 (4.0-11.0)
[2017-02-07 07:39] LABS: REVIEW FLAG FINAL
[2017-02-07 07:58] LABS: ALKALINE PHOSPHATASE 144 U/L (45-117); ALT (GPT) 21 U/L (12-78); ANION GAP 12 MEQ/L (5-15); AST (GOT) 25 U/L (15-37); BLOOD UREA NITROGEN 20 MG/DL (7-18); CHLORIDE 98 MEQ/L (98-107); GLOMERULAR FILTRATION RATE 16 ML/MIN (>89); POTASSIUM 3.7 MEQ/L (3.5-5.1); SODIUM (NA) 135 MEQ/L (136-145); TOTAL BILIRUBIN ADULT 0.3 MG/DL (0.2-1.0)
[2017-02-07 08:00] VITALS: BP 106/75; PULSE 88; RESP 16; TEMP 98.2; O2SAT 95
[2017-02-07] MEDS: CALCIUM ACETATE 667 MG CAP PO SCH ×3 (08:48→17:31)
[2017-02-07] MEDS: SODIUM CHLORIDE 0.9% FLUSH 10 ML FLUSH IV FLUSH SCH ×2 (08:48→22:15)
[2017-02-07] MEDS: CALCITRIOL 0.25 MCG CAP PO SCH (08:48)
[2017-02-07] MEDS: HYDROCORTISONE 1% CREAM 30 GM TOPICAL SCH ×3 (09:00→18:18)
[2017-02-07] MEDS: EUCERIN CREAM 120 GM JAR TOPICAL SCH ×3 (09:00→18:18)
--- NOTE | 2017-02-07 10:32 | HHI.NPPN ---
Subjective History of Present Illness 26-year-old male known to me from before with a past medical history of HIV, history of lymphoma and splenectomy, end-stage renal disease on hemodialysis with a PD catheter inserted recently, history of bilateral above-knee amputations and amputation of the left arm. He was admitted because of generalized weakness, nausea, vomiting and pain at the site of the PermCath and abdominal pain. I was called to see the patient for the management of dialysis. The patient has been on hemodialysis Thursday, and Thursday. He had his last dialysis done on Thursday and the patient has a PD catheter in. He is supposed to be getting training for the peritoneal dialysis. Additional Remarks Patient is alert, pain is better, no SOB, remain afebrile, eating well. Review of Systems General Constitutional: Fatigue Respiratory Lungs: SOB Cardiovascular Cardiac: HERMAN Gastrointestinal Gastrointestinal: Abdominal Pain Objective Data Data Vital Signs Date Time Temp Pulse Resp B/P (MAP) Pulse Ox O2 Delivery O2 Flow Rate FiO2 02/07/17 08:00 98.2 88 16 106/75 (85) 95 02/07/17 04:00 98.0 69 16 99/59 (72) 100 02/07/17 00:00 98.1 64 16 106/62 (77) 99 02/06/17 21:30 98.2 69 17 110/54 (72) 100 02/06/17 16:27 98.3 78 16 119/77 (91) 98 02/06/17 12:46 98.4 77 16 108/68 (81) 97 -: 02/07/17 0438 02/07/17 0438 Physical Exam General Appearance: No Acute Distress, Comfortable Eyes Eye Exam: Pupils Equal Throat Throat Exam: Oral Mucosa [place] & Moist Pulmonary Resp Exam: Breath Sounds Equal, No Distress, Decreased Bases Cardiology CV Exam: Regular, Normal Sinus Rhythm Gastrointestinal/Abdomen GI Exam: Soft, Non-Tender, Bowel Sounds Present, Non-Distended (has PD Catheter in place.) Neurologic Neuro Exam: Alert, Awake, Oriented Assessment/Plan Assessment Summary: Anemia of CKD, Hypertension, End Stage Renal Disease Problem List: (1) HIV (human immunodeficiency virus infection) ICD Codes: Z21 - Asymptomatic human immunodeficiency virus [HIV] infection status Status: Chronic (2) HTN (hypertension) ICD Codes: I10 - Essential (primary) hypertension Status: Resolved (3) Abdominal pain ICD Codes: R10.9 - Unspecified abdominal pain (4) Leukocytosis ICD Codes: D72.829 - Elevated white blood cell count, unspecified Status: Chronic (5) Generalized pain ICD Codes: R52 - Pain, unspecified Status: Acute (6) Stage 5 chronic kidney disease ICD Codes: N18.5 - Chronic kidney disease, stage 5 Status: Acute (7) Dependent on hemodialysis ICD Codes: Z99.2 - Dependence on renal dialysis Status: Acute Plan on HD seen during dialysis HD proceedings noted seen at dialysis UF 1.5 L PermCath site is clean, no discharge, no swelling. Remain afebrile, WBC slightly better. Cultures negative so far. Zyvox stopped negative cultures. WBC higher Hgb. is stable after transfusion. BC remain negative and afebrile. Possible D/C, if discharged, to continue HD as out patient. Problem Qualifiers (1) Leukocytosis: Qualified Codes: D72.829 - Elevated white blood cell count, unspecified Mireya Eduardo MD Feb 07, 2017 10:32
[2017-02-07] MEDS: EPOETIN ALFA 10,000 UNITS/ML VIAL IV PUSH PRN (12:25)
[2017-02-07] MEDS: HEPARIN SODIUM - IV 10,000 UNITS/10 ML VIAL PRN (12:25)
[2017-02-07] MEDS: GENTAMICIN SULFATE (DIALYSIS USE ONLY) 20 MG/2 ML VIAL OTHER PRN (12:26)
[2017-02-07] MEDS: oxyCODONE/ACETAMINOPHEN 10 MG/325 MG TAB PO PRN ×2 (14:58→23:05)
--- NOTE | 2017-02-07 15:38 | HHI.FPPN ---
Subjective Remarks Mr Yu had no acute events overnight. He is comfortable and sleeping during dialysis before and after the interview. He has no complaints and is ok with going home. Denies CP, SOB, N/V/D, DVT pain. Objective Vitals Vital Signs Date Time Temp Pulse Resp B/P (MAP) Pulse Ox O2 Delivery O2 Flow Rate FiO2 02/07/17 08:00 98.2 88 16 106/75 (85) 95 02/07/17 04:00 98.0 69 16 99/59 (72) 100 02/07/17 00:00 98.1 64 16 106/62 (77) 99 02/06/17 21:30 98.2 69 17 110/54 (72) 100 02/06/17 16:27 98.3 78 16 119/77 (91) 98 I/O 02/06/17 02/06/17 02/06/17 02/07/17 02/07/17 02/07/17 07:00 15:00 23:00 07:00 15:00 23:00 Intake Total 600 ml 1480 ml 800 ml 240 ml Output Total 300 ml 1000 ml 650 ml 1800 ml Balance 300 ml 480 ml 150 ml -1560 ml Intake Oral 600 ml 1480 ml 800 ml 240 ml Output Urine Total 300 ml 1000 ml 650 ml 300 ml Hemodialysis 1500 ml # Bowel Movements 0 0 0 Result Diagram: 02/07/1743702/07/17437 Objective Remarks CONSTITUTIONAL/GEN: well nourished AAM resting in bed in NAD with bilateral BKAs and left lower arm amputated below elbow in the dialysis suite. EYES: conjunctiva normal, PERRLA, EOMI. ENT: Lips are dry and peeling, no oral lesions. NECK: Supple, non-tender, without lymphadenopathy. LUNGS: Clear lung tony bilaterally with normal respiratory effort. No wheezes or crackles. CARDIOVASCULAR: RRR without murmur, rub, or gallop. GI/ABD: Soft, non-tender, nondistended without masses, without organomegaly. Peritoneal dialysis catheter with wound dressing c/d/i. NEURO: No focal deficits. SKIN: Normal color, dry with flaking and peeling including on his scalp from previous hospitalization antibiotic allergy. HEME/LYMPH: No bruising, petechia or significant adenopathy MUSC: The stumps of the lower extremities are not tender to palpation. PSYCH/MENTAL STATUS: Alert and oriented x 3. Medications and IVs Current Medications Medications (Trade) Dose Ordered Sig/Moose Route Start Time Stop Time Status Last Admin (NS Flush) 2 ml UNSCH PRN IV FLUSH 02/02/17 18:15 (NS Flush) 2 ml BID IV FLUSH 02/02/17 21:00 02/07/17 08:48 (Tylenol) 650 mg Q4H PRN PO 02/02/17 18:15 02/04/17 01:54 (Zofran Inj) 4 mg Q6H PRN IVP 02/02/17 18:15 (Heparin Inj) 5,000 units Q8H SQ 02/02/17 20:00 02/07/17 14:54 (Narcan Inj) 0.4 mg UNSCH PRN IV PUSH 02/02/17 18:15 (Janeen-Colace) 1 tab BID PO 02/02/17 21:00 02/07/17 08:48 (Milk Of Magnesia Liq) 30 ml Q12H PRN PO 02/02/17 18:15 (Senokot) 17.2 mg Q12H PRN PO 02/02/17 18:15 (Dulcolax Supp) 10 mg DAILY PRN RECTAL 02/02/17 18:15 (Lactulose Liq) 30 ml DAILY PRN PO 02/02/17 18:15 (Tylenol) 650 mg Q6H PRN PO 02/02/17 22:30 (Percocet 5-325 Mg) 1 tab Q6H PRN PO 02/02/17 22:30 02/07/17 03:56 (Percocet 10-325 Mg) 1 tab Q6H PRN PO 02/02/17 22:30 02/07/17 14:58 (Morphine Inj) 4 mg Q3H PRN IV PUSH 02/02/17 22:30 (Narcan Inj) 0.4 mg UNSCH PRN IV PUSH 02/02/17 22:30 Sodium Chloride 1,000 ml @ 0 mls/hr Q0M PRN OTHER 02/02/17 22:32 02/05/17 20:02 (Heparin Inj) 8,000 units UNSCH PRN IV FLUSH 02/02/17 22:45 Sodium Chloride 1,000 ml @ 200 mls/hr Q5H PRN IV 02/02/17 22:32 Sodium Chloride 1,000 ml @ 0 mls/hr Q0M PRN OTHER 02/02/17 22:32 (Mannitol Inj) 12.5 gm UNSCH PRN IV 02/02/17 22:45 Albumin Human 100 ml @ 60 mls/hr UNSCH PRN IV 02/02/17 22:45 (NS Flush) 5 ml UNSCH PRN IV FLUSH 02/02/17 22:45 02/05/17 20:02 (Heparin Inj) UNSCH PRN .XX 02/02/17 22:45 02/07/17 12:25 (Gentamicin (Dialysis) Inj) 20 mg UNSCH PRN OTHER 02/02/17 22:45 02/07/17 12:26 (Zofran Inj) 4 mg UNSCH PRN IV PUSH 02/02/17 22:45 (Tylenol) 650 mg UNSCH PRN PO 02/02/17 22:45 (Benadryl) 25 mg UNSCH PRN PO 02/02/17 22:45 02/06/17 03:14 (Nitrostat Sl) 0.4 mg UNSCH PRN SL 02/02/17 22:45 (Catapres) 0.1 mg UNSCH PRN PO 02/02/17 22:45 (Epogen Inj) 10,000 units UNSCH PRN IV PUSH 02/02/17 22:45 02/07/17 12:25 (Gelfoam 12 Mm/7 Mm Top) 1 foam UNSCH PRN TOP 02/02/17 22:45 (Ziagen) 300 mg BID PO 02/03/17 09:00 02/07/17 08:48 (Pepcid) 20 mg HS PO 02/03/17 21:00 02/07/17 00:18 (Lexiva) 700 mg BID PO 02/03/17 09:00 02/07/17 08:48 (Epivir) 150 mg DAILY PO 02/03/17 09:00 02/07/17 08:48 (Keppra) 750 mg Q12HR PO 02/03/17 09:00 02/07/17 08:48 (Norvir) 100 mg BID PO 02/03/17 09:00 02/07/17 08:48 (Blistex Lip [place]) 1 applic UNSCH PRN TOPICAL 02/03/17 00:15 02/03/17 04:40 (Eucerin Cream) 1 applic TID TOPICAL 02/03/17 18:00 02/06/17 17:32 (Hydrocortisone 1% Cream) 1 applic TID TOPICAL 02/03/17 18:00 02/06/17 17:33 (Tylenol) 650 mg Q4H PRN PO 02/04/17 06:30 (Benadryl) 25 mg Q4H PRN PO 02/04/17 06:30 (Phoslo) 1,334 mg TID PO 02/05/17 09:00 02/07/17 14:53 (Rocaltrol) 0.25 mcg DAILY PO 02/05/17 11:00 02/07/17 08:48 Urinary Catheter: No Vascular Central Line Catheter: No A/P Assessment and Plan 26 year old male with HIV, ESRD on dialysis, history of lymphoma, and s/p splenectomy presents with leukocytosis of unknown etiology and pain around the PermCath and peritoneal dialysis catheter sites that have resolved. Seen and examined with Rip Cai and Alice Discharge Planning Possibly tomorrow 01/08/17. If white blood cell count is normal, okay to discharge home tomorrow per infectious disease recommendations. Problem List: (1) Anemia Status: Acute Plan: -Improving H/H at 10.2/32.1 today - up from 6.7/21.9 on 02/04, s/p transfusion of 1uPRBCs -Continue to monitor (2) SIRS (systemic inflammatory response syndrome) ICD Codes: R65.10 - Systemic inflammatory response syndrome (SIRS) of non- infectious origin without acute organ dysfunction Status: Resolved Plan: Met criteria of SIRS on admission with tachycardia, borderline low blood pressures, leukocytosis. Afebrile. Source of infection unidentified. - Urine culture and repeat Blood cx NGTD - Infectious disease following - Discontinued Ceftriaxone and Linezolid 02/06/17-->small increase in WBC from 10.5->11.8 in 1 day - CD4 count 275 on 02/03/17 vs 475 on 08/09/14--taking retrovirals in hospital - WBC scan performed (3) Stage 5 chronic kidney disease ICD Codes: N18.5 - Chronic kidney disease, stage 5 Status: Acute Plan: Patient with stage 5 chronic kidney disease, recently started hemodialysis. [facility]. On TTS schedule for dialysis. -Appreciate nephrology advice (4) Human immunodeficiency virus (HIV) positive Status: Chronic Plan: - Continue antiretrovirals - CD4 count 275 on 02/03/17 vs 475 on 08/09/14--taking retrovirals in hospital (5) Amputated below knee Status: Chronic Plan: - Needs assistance - Per PT: Patient does not need physical therapy at home (6) Amputated below elbow Status: Chronic Plan: - Needs assistance per Physical therapy/Occupational therapy - Per pt: does not need assistance (7) Pressure ulcer of left leg, stage 1 ICD Codes: L89.891 - Pressure ulcer of other site, stage 1 Status: Chronic Plan: Wound care managing (8) Pressure ulcer of right leg, stage 1 ICD Codes: L89.891 - Pressure ulcer of other site, stage 1 Status: Chronic Plan: Wound care managing (9) Dry skin dermatitis ICD Codes: L85.3 - Xerosis cutis Status: Acute Plan: Discontinued Eucerin and 1% hydrocortisone cream mix at pt request (10) No contraindication to deep vein thrombosis (DVT) prophylaxis ICD Codes: Z78.9 - Other specified health status Status: Acute Plan: Heparin 5000 units every 8 hours (11) Nutrition, metabolism, and development symptoms ICD Codes: R63.8 - Other symptoms and signs concerning food and fluid intake Status: Acute Plan: Oral fluids Renal diet Monitor electrolytes, hyperkalemia resolved Dialysis TTS, nephrology on board Problem Qualifiers (1) Amputated below knee: Qualified Codes: Z89.512 - Acquired absence of left leg below knee; Z89.511 - Acquired absence of right leg below knee (2) Amputated below elbow: Qualified Codes: Z89.212 - Acquired absence of left upper limb below elbow Live Lai MD R1 Feb 07, 2017 15:38
[2017-02-07 16:00] VITALS: BP 104/58; PULSE 87; RESP 16; TEMP 98.2; O2SAT 97
[2017-02-07 20:59] VITALS: BP 104/69; PULSE 89; RESP 20; TEMP 98.6; O2SAT 95
[2017-02-07] MEDS: diphenhydrAMINE HCL 25 MG CAP PO PRN (23:05)
[2017-02-08 00:45] VITALS: BP 120/72; PULSE 82; RESP 17; TEMP 99; O2SAT 95
[2017-02-08] MEDS: oxyCODONE/ACETAMINOPHEN 10 MG/325 MG TAB PO PRN (04:45)
[2017-02-08] MEDS: HEPARIN SODIUM - SQ 10,000 UNITS/ML VIAL SQ SCH ×3 (04:45→21:11)
[2017-02-08 05:14] VITALS: BP 110/73; PULSE 85; RESP 17; TEMP 98.3; O2SAT 97
[2017-02-08 07:36] LABS: MEAN CELL VOLUME 81.9 FL (80.0-100.0); MEAN CORPUSCULAR HGB CONC 31.7 % (32.0-36.0); PLATELET COUNT 147 TH/MM3 (150-450); RED BLOOD COUNT 4.04 MIL/MM3 (4.50-5.90); RED CELL DISTRIBUTION WIDTH 16.2 % (11.6-17.2)
[2017-02-08 07:38] LABS: REVIEW FLAG FINAL
[2017-02-08 07:53] LABS: BICARBONATE 27.1 MEQ/L (21.0-32.0); POTASSIUM 3.9 MEQ/L (3.5-5.1)
[2017-02-08 08:00] VITALS: BP 116/78; PULSE 72; RESP 16; TEMP 98.1; O2SAT 98
--- NOTE | 2017-02-08 09:02 | HHI.FPPN ---
Subjective Remarks Pt is doing okay today and denies any acute concerns. We discussed his WBC and that we may possibly restart his antibiotics today and he is okay with the plan as long as we do not put him on penicillin. Objective Vitals Vital Signs Date Time Temp Pulse Resp B/P (MAP) Pulse Ox O2 Delivery O2 Flow Rate FiO2 02/08/17 08:00 98.1 72 16 116/78 (91) 98 02/08/17 05:49 18 02/08/17 05:14 98.3 85 17 110/73 (85) 97 02/08/17 00:45 99.0 82 17 120/72 (88) 95 02/07/17 20:59 98.6 89 20 104/69 (81) 95 02/07/17 16:00 98.2 87 16 104/58 (73) 97 I/O 02/07/17 02/07/17 02/07/17 02/08/17 02/08/17 02/08/17 07:00 15:00 23:00 07:00 15:00 23:00 Intake Total 800 ml 240 ml 240 ml Output Total 650 ml 1800 ml 450 ml Balance 150 ml -1560 ml -210 ml Intake Oral 800 ml 240 ml 240 ml Output Urine Total 650 ml 300 ml 450 ml Hemodialysis 1500 ml # Bowel Movements 0 Result Diagram: 02/08/17 0710 02/08/17 0710 Objective Remarks CONSTITUTIONAL/GEN: well nourished AAM resting in bed in NAD EYES: conjunctiva normal, PERRLA, EOMI. ENT: Lips are dry and peeling, no oral lesions. NECK: Supple, non-tender, without lymphadenopathy. LUNGS: Clear lung tony bilaterally with normal respiratory effort. No wheezes or crackles. CARDIOVASCULAR: RRR without murmur, rub, or gallop. GI/ABD: Soft, non-tender, nondistended without masses, without organomegaly. Unable to view peritoneal dialysis catheter site due to patient's refusal NEURO: No focal deficits. SKIN: Normal color, dry with flaking and peeling including on his scalp from previous hospitalization antibiotic allergy. HEME/LYMPH: No bruising, petechia or significant adenopathy MUSC: Bilateral BKAs and left lower arm amputated below elbow. The stumps of the lower extremities are not tender to palpation. PSYCH/MENTAL STATUS: Alert and oriented x 3. A/P Assessment and Plan 26 year old male with HIV, ESRD on dialysis, history of lymphoma, and s/p splenectomy presents with leukocytosis of unknown etiology and pain around the PermCath and peritoneal dialysis catheter sites that initially resolved but patient developed leukocytosis again starting on 02/07 at 11.8 and 13.0 on . Plan is to resume Zyvox and Rocephin while awaiting results of WBC scan. Discussed with Dr Cai Discharge Planning Plan for discharge in 1-2 days pending resolution of leukocytosis. Patient will need 24 hours with normal white blood cell count. Problem List: (1) Anemia Status: Acute Plan: -Improving H/H at 10.5/33.0 today - up from 6.7/21.9 on 02/04, s/p transfusion of 1uPRBCs -Continue to monitor (2) SIRS (systemic inflammatory response syndrome) ICD Codes: R65.10 - Systemic inflammatory response syndrome (SIRS) of non- infectious origin without acute organ dysfunction Status: Resolved Plan: Met criteria of SIRS on admission with tachycardia, borderline low blood pressures, leukocytosis. Afebrile. Source of infection unidentified. - Urine culture and repeat Blood cx NGTD - Infectious disease following - Discontinued Ceftriaxone and Linezolid 02/06/17-->small increase in WBC from 10.5->11.8 in 1 day, worsened to the 13.0 on 02/08. Will resume ceftriaxone and linezolid today - CD4 count 275 on 02/03/17 vs 475 on 08/09/14--taking retrovirals in hospital - WBC scan performed on 02/06 - no acute disease (3) Stage 5 chronic kidney disease ICD Codes: N18.5 - Chronic kidney disease, stage 5 Status: Acute Plan: Patient with stage 5 chronic kidney disease, recently started hemodialysis. Currently getting dialysis through [facility], with plans for eventual peritoneal dialysis. On TTS schedule for dialysis. -Appreciate nephrology advice (4) Human immunodeficiency virus (HIV) positive Status: Chronic Plan: - Continue antiretrovirals - CD4 count 275 on 02/03/17 vs 475 on 08/09/14--taking retrovirals in hospital (5) Amputated below knee Status: Chronic Plan: - Needs assistance - Per PT: Patient does not need physical therapy at home (6) Amputated below elbow Status: Chronic Plan: - Needs assistance per Physical therapy/Occupational therapy - Per pt: does not need assistance (7) Pressure ulcer of left leg, stage 1 ICD Codes: L89.891 - Pressure ulcer of other site, stage 1 Status: Chronic Plan: Wound care managing (8) Pressure ulcer of right leg, stage 1 ICD Codes: L89.891 - Pressure ulcer of other site, stage 1 Status: Chronic Plan: Wound care managing (9) Dry skin dermatitis ICD Codes: L85.3 - Xerosis cutis Status: Acute Plan: Discontinued Eucerin and 1% hydrocortisone cream mix at pt request (10) No contraindication to deep vein thrombosis (DVT) prophylaxis ICD Codes: Z78.9 - Other specified health status Status: Acute Plan: Heparin 5000 units every 8 hours (11) Nutrition, metabolism, and development symptoms ICD Codes: R63.8 - Other symptoms and signs concerning food and fluid intake Status: Acute Plan: Oral fluids Renal diet Monitor electrolytes and replace as needed Dialysis TTS, nephrology on board Problem Qualifiers (1) Amputated below knee: Qualified Codes: Z89.512 - Acquired absence of left leg below knee; Z89.511 - Acquired absence of right leg below knee (2) Amputated below elbow: Qualified Codes: Z89.212 - Acquired absence of left upper limb below elbow Luz Bland MD R2 Feb 08, 2017 09:02
[2017-02-08] MEDS: FOSAMPRENAVIR CALCIUM PO SCH ×2 (09:42→21:11)
[2017-02-08] MEDS: ABACAVIR SULFATE 300 MG TAB PO SCH ×2 (09:42→21:10)
[2017-02-08] MEDS: DOCUSATE SODIUM 50 MG/SENNA 8.6 MG TAB PO SCH ×2 (09:43→21:10)
[2017-02-08] MEDS: CALCITRIOL 0.25 MCG CAP PO SCH (09:43)
[2017-02-08] MEDS: levETIRAcetam 250 MG TAB PO SCH ×2 (09:43→21:10)
[2017-02-08] MEDS: RITONAVIR 100 MG TAB PO SCH ×2 (09:43→21:11)
[2017-02-08] MEDS: CALCIUM ACETATE 667 MG CAP PO SCH ×3 (09:43→16:52)
[2017-02-08] MEDS: SODIUM CHLORIDE 0.9% FLUSH 10 ML FLUSH IV FLUSH SCH ×2 (09:44→21:11)
[2017-02-08] MEDS: HYDROCORTISONE 1% CREAM 30 GM TOPICAL SCH ×3 (09:45→18:43)
[2017-02-08] MEDS: EUCERIN CREAM 120 GM JAR TOPICAL SCH ×3 (09:45→18:43)
--- NOTE | 2017-02-08 12:00 | RADRPT ---
EXAM DATE/TIME: 02/07/2017 13:48 [place] COMPARISON: CHEST SINGLE AP, February 02, 2017, 18:14. INDICATIONS : Infection. Recurrent leukocytosis of unknown etiology. DOSE: 21.0 mCi Tc99m Ceretec labeled white blood cells IV PLANAR IMAGIN hrs, 20 hrs MEDICAL HISTORY : HIV. Renal disease, end stage. Lymphoma. SURGICAL HISTORY : Splenectomy. Bilateral below knee amputations. ENCOUNTER: Initial ACUITY: 1 day PAIN SCALE: 0/10 LOCATION: upper quadrant TECHNIQUE: Following the in vitro labeling of autologous white cells and reinjection, whole body scan was perfor med at specified times. FINDINGS: There is no abnormal biodistribution of radiotracer. CONCLUSION: No acute disease. Chico Real MD on February 08, 2017 at 11:55 Board Certified Radiologist. This report was verified electronically.
[2017-02-08] MEDS: LINEZOLID 600 MG TAB PO SCH ×2 (16:52→21:10)
[2017-02-08] MEDS: cefTRIAXone INJ 1,000 MG in SODIUM CHLORIDE 0.9% INJ 100 ML IV SCH (16:52)
[2017-02-08] MEDS: FAMOTIDINE 20 MG TAB PO SCH (21:11)
[2017-02-08 21:22] VITALS: BP 105/64; PULSE 104; RESP 20; TEMP 98.6; O2SAT 95
--- NOTE | 2017-02-08 22:36 | HHI.NPPN ---
Subjective History of Present Illness 26-year-old male known to me from before with a past medical history of HIV, history of lymphoma and splenectomy, end-stage renal disease on hemodialysis with a PD catheter inserted recently, history of bilateral above-knee amputations and amputation of the left arm. He was admitted because of generalized weakness, nausea, vomiting and pain at the site of the PermCath and abdominal pain. I was called to see the patient for the management of dialysis. The patient has been on hemodialysis Thursday, and Thursday. He had his last dialysis done on Thursday and the patient has a PD catheter in. He is supposed to be getting training for the peritoneal dialysis. Additional Remarks Patient is alert, pain is better, no SOB, remain afebrile, eating well. Review of Systems General Constitutional: Fatigue Respiratory Lungs: SOB Cardiovascular Cardiac: HERMAN Gastrointestinal Gastrointestinal: Abdominal Pain Objective Data Data 02/08/17 02/09/17 19:00 07:00 Intake Total 580 ml Output Total 850 ml Balance -270 ml Intake Oral 480 ml IV Total 100 ml Output Urine Total 850 ml # Bowel Movements 1 Vital Signs Date Time Temp Pulse Resp B/P (MAP) Pulse Ox O2 Delivery O2 Flow Rate FiO2 02/08/17 21:22 98.6 104 20 105/64 (78) 95 02/08/17 08:00 98.1 72 16 116/78 (91) 98 02/08/17 05:49 18 02/08/17 05:14 98.3 85 17 110/73 (85) 97 02/08/17 00:45 99.0 82 17 120/72 (88) 95 -: 02/08/17 0710 02/08/17 0710 Physical Exam General Appearance: No Acute Distress, Comfortable Eyes Eye Exam: Pupils Equal Throat Throat Exam: Oral Mucosa [place] & Moist Pulmonary Resp Exam: Breath Sounds Equal, No Distress, Decreased Bases Cardiology CV Exam: Regular, Normal Sinus Rhythm Gastrointestinal/Abdomen GI Exam: Soft, Non-Tender, Bowel Sounds Present, Non-Distended (has PD Catheter in place.) Neurologic Neuro Exam: Alert, Awake, Oriented Assessment/Plan Assessment Summary: Anemia of CKD, Hypertension, End Stage Renal Disease Problem List: (1) HIV (human immunodeficiency virus infection) ICD Codes: Z21 - Asymptomatic human immunodeficiency virus [HIV] infection status Status: Chronic (2) HTN (hypertension) ICD Codes: I10 - Essential (primary) hypertension Status: Resolved (3) Abdominal pain ICD Codes: R10.9 - Unspecified abdominal pain (4) Leukocytosis ICD Codes: D72.829 - Elevated white blood cell count, unspecified Status: Chronic (5) Generalized pain ICD Codes: R52 - Pain, unspecified Status: Acute (6) Stage 5 chronic kidney disease ICD Codes: N18.5 - Chronic kidney disease, stage 5 Status: Acute (7) Dependent on hemodialysis ICD Codes: Z99.2 - Dependence on renal dialysis Status: Acute Plan on HD seen during dialysis dialysis Thursday UF 1.5 L PermCath site is clean, no discharge, no swelling. Remain afebrile, WBC slightly better. Cultures negative so far. Zyvox stopped negative cultures. WBC higher Hgb. is stable after transfusion. BC remain negative and afebrile. Possible D/C, if discharged, to continue HD as out patient. Dr. Solis to follow Problem Qualifiers (1) Leukocytosis: Qualified Codes: D72.829 - Elevated white blood cell count, unspecified Mireya Eduardo MD Feb 08, 2017 22:36
[2017-02-09 00:08] VITALS: BP 103/55; PULSE 107; RESP 17; TEMP 99.4; O2SAT 96
[2017-02-09] MEDS: diphenhydrAMINE HCL 25 MG CAP PO PRN ×4 (02:32→18:14)
[2017-02-09] MEDS: HEPARIN SODIUM - SQ 10,000 UNITS/ML VIAL SQ SCH ×3 (03:04→22:45)
[2017-02-09 04:59] VITALS: BP 100/61; PULSE 91; RESP 17; TEMP 98.5; O2SAT 99
[2017-02-09 07:21] LABS: AUTOMATED NEUTROPHIL # 11.5 TH/MM3 (1.8-7.7); BASOPHIL # 0.1 TH/MM3 (0-0.2); BASOPHIL % 0.5 % (0.0-2.0); EOSINOPHIL # 0.8 TH/MM3 (0-0.4); EOSINOPHIL % 4.5 % (0.0-4.0); MEAN CORPUSCULAR HEMOGLOBIN 25.6 PG (27.0-34.0); MEAN CORPUSCULAR HGB CONC 31.2 % (32.0-36.0); PLATELET COUNT 176 TH/MM3 (150-450); RED CELL DISTRIBUTION WIDTH 16.3 % (11.6-17.2); WHITE BLOOD COUNT 16.7 TH/MM3 (4.0-11.0)
[2017-02-09 07:28] LABS: HEMO FLAGS AUTO DIFF
[2017-02-09 07:46] LABS: BICARBONATE 26.3 MEQ/L (21.0-32.0); POTASSIUM 3.6 MEQ/L (3.5-5.1)
[2017-02-09 08:22] VITALS: BP 107/70; PULSE 87; RESP 20; TEMP 98.7; O2SAT 98
[2017-02-09 09:03] LABS: CORRECTED NUCLEATED RBC 11 /100 WBC (0-0); EOSINOPHILS 9 % (0-4); NEUTROPHIL # MANUAL DIFF 11.2 TH/MM3 (1.8-7.7); PLATELET ESTIMATE SMEAR NORMAL (NORMAL); PLATELET MORPHOLOGY ENLARGED (NORMAL); POLYS (SEG NEUTROPHILS) 67 % (16-70); TARGET CELLS 1+ (NORMAL); WBC DIFF SAMPLE 100
[2017-02-09 09:07] LABS: HOWELL-JOLLY BODIES PRESENT (NONE SEEN)
[2017-02-09 09:08] LABS: SCAN/DIFF FINAL DIFF MANUAL
[2017-02-09] MEDS: levETIRAcetam 250 MG TAB PO SCH ×2 (09:24→22:44)
[2017-02-09] MEDS: CALCIUM ACETATE 667 MG CAP PO SCH ×3 (09:24→17:22)
[2017-02-09] MEDS: CALCITRIOL 0.25 MCG CAP PO SCH (09:24)
[2017-02-09] MEDS: EUCERIN CREAM 120 GM JAR TOPICAL SCH ×3 (09:24→17:24)
[2017-02-09] MEDS: RITONAVIR 100 MG TAB PO SCH ×2 (09:24→22:43)
[2017-02-09] MEDS: LINEZOLID 600 MG TAB PO SCH (09:24)
[2017-02-09] MEDS: ABACAVIR SULFATE 300 MG TAB PO SCH ×2 (09:24→22:43)
[2017-02-09] MEDS: DOCUSATE SODIUM 50 MG/SENNA 8.6 MG TAB PO SCH ×2 (09:24→22:44)
[2017-02-09] MEDS: FOSAMPRENAVIR CALCIUM PO SCH ×2 (09:24→22:44)
[2017-02-09] MEDS: HYDROCORTISONE 1% CREAM 30 GM TOPICAL SCH ×3 (09:25→17:24)
[2017-02-09] MEDS: SODIUM CHLORIDE 0.9% FLUSH 10 ML FLUSH IV FLUSH SCH ×2 (09:25→21:00)
--- NOTE | 2017-02-09 09:43 | HHI.FPPN ---
Subjective Remarks Mr Yu had no acute events overnight. He is in no pain, afebrile, and with VSS. He denies CP, SOB, N/V/D, and DVT pain. Objective Vitals Vital Signs Date Time Temp Pulse Resp B/P (MAP) Pulse Ox O2 Delivery O2 Flow Rate FiO2 02/09/17 08:22 98.7 87 20 107/70 (82) 98 02/09/17 04:59 98.5 91 17 100/61 (74) 99 02/09/17 00:08 99.4 107 17 103/55 (71) 96 02/08/17 21:22 98.6 104 20 105/64 (78) 95 I/O 02/08/17 02/08/17 02/08/17 02/09/17 02/09/17 02/09/17 07:00 15:00 23:00 07:00 15:00 23:00 Intake Total 240 ml 580 ml 240 ml Output Total 450 ml 275 ml 575 ml 550 ml Balance -210 ml -275 ml 5 ml -310 ml Intake Oral 240 ml 480 ml 240 ml IV Total 100 ml Output Urine Total 450 ml 275 ml 575 ml 550 ml # Bowel Movements 1 Result Diagram: 02/09/17 0528 02/09/17 0528 Imaging Last Impressions Tumor Localization 02/06/17 0000 Signed Impressions: Service Date/Time: Tuesday, February 07, 2017 13:48 - CONCLUSION: No acute disease. Chico Real MD Chest X-Ray 02/02/17 0000 Signed Impressions: Service Date/Time: Thursday, February 02, 2017 18:14 - CONCLUSION: 1. Right IJ tunneled dialysis catheter with the tip projecting over the central venous system. 2. Lungs are clear. Bruce Romo MD Objective Remarks CONSTITUTIONAL/GEN: Well nourished AAM resting in bed in NAD. EYES: Conjunctiva normal, PERRLA, EOMI. ENT: Lips are dry and reduced peeling, no oral lesions. NECK: Supple, non-tender, without lymphadenopathy. LUNGS: Clear lung tony bilaterally with normal respiratory effort. No wheezes or crackles. CARDIOVASCULAR: RRR without murmur, rub, or gallop. GI/ABD: Soft, non-tender, nondistended without masses, without organomegaly. Peritoneal dialysis catheter site wrapped in bandage, unable to assess due to patient's refusal NEURO: No focal deficits. SKIN: Normal color, dry with flaking and peeling including on his scalp from previous hospitalization antibiotic allergy. HEME/LYMPH: No bruising, petechia or significant adenopathy MUSC: Bilateral BKAs and left lower arm amputated below elbow. The stumps of the lower extremities are not tender to palpation. PSYCH/MENTAL STATUS: Alert and oriented x 3. Medications and IVs Current Medications Medications (Trade) Dose Ordered Sig/Moose Route Start Time Stop Time Status Last Admin (NS Flush) 2 ml UNSCH PRN IV FLUSH 02/02/17 18:15 (NS Flush) 2 ml BID IV FLUSH 02/02/17 21:00 02/09/17 09:25 (Tylenol) 650 mg Q4H PRN PO 02/02/17 18:15 02/04/17 01:54 (Zofran Inj) 4 mg Q6H PRN IVP 02/02/17 18:15 (Heparin Inj) 5,000 units Q8H SQ 02/02/17 20:00 02/08/17 13:06 (Narcan Inj) 0.4 mg UNSCH PRN IV PUSH 02/02/17 18:15 (Janeen-Colace) 1 tab BID PO 02/02/17 21:00 02/09/17 09:24 (Milk Of Magnesia Liq) 30 ml Q12H PRN PO 02/02/17 18:15 (Senokot) 17.2 mg Q12H PRN PO 02/02/17 18:15 (Dulcolax Supp) 10 mg DAILY PRN RECTAL 02/02/17 18:15 (Lactulose Liq) 30 ml DAILY PRN PO 02/02/17 18:15 (Tylenol) 650 mg Q6H PRN PO 02/02/17 22:30 (Percocet 5-325 Mg) 1 tab Q6H PRN PO 02/02/17 22:30 02/09/17 12:22 (Percocet 10-325 Mg) 1 tab Q6H PRN PO 02/02/17 22:30 02/09/17 18:14 (Morphine Inj) 4 mg Q3H PRN IV PUSH 02/02/17 22:30 (Narcan Inj) 0.4 mg UNSCH PRN IV PUSH 02/02/17 22:30 Sodium Chloride 1,000 ml @ 0 mls/hr Q0M PRN OTHER 02/02/17 22:32 02/05/17 20:02 (Heparin Inj) 8,000 units UNSCH PRN IV FLUSH 02/02/17 22:45 Sodium Chloride 1,000 ml @ 200 mls/hr Q5H PRN IV 02/02/17 22:32 Sodium Chloride 1,000 ml @ 0 mls/hr Q0M PRN OTHER 02/02/17 22:32 (Mannitol Inj) 12.5 gm UNSCH PRN IV 02/02/17 22:45 Albumin Human 100 ml @ 60 mls/hr UNSCH PRN IV 02/02/17 22:45 (NS Flush) 5 ml UNSCH PRN IV FLUSH 02/02/17 22:45 02/05/17 20:02 (Heparin Inj) UNSCH PRN .XX 02/02/17 22:45 02/07/17 12:25 (Gentamicin (Dialysis) Inj) 20 mg UNSCH PRN OTHER 02/02/17 22:45 02/07/17 12:26 (Zofran Inj) 4 mg UNSCH PRN IV PUSH 02/02/17 22:45 (Tylenol) 650 mg UNSCH PRN PO 02/02/17 22:45 (Benadryl) 25 mg UNSCH PRN PO 02/02/17 22:45 02/09/17 18:14 (Nitrostat Sl) 0.4 mg UNSCH PRN SL 02/02/17 22:45 (Catapres) 0.1 mg UNSCH PRN PO 02/02/17 22:45 (Epogen Inj) 10,000 units UNSCH PRN IV PUSH 02/02/17 22:45 02/07/17 12:25 (Gelfoam 12 Mm/7 Mm Top) 1 foam UNSCH PRN TOP 02/02/17 22:45 (Ziagen) 300 mg BID PO 02/03/17 09:00 02/09/17 09:24 (Pepcid) 20 mg HS PO 02/03/17 21:00 02/08/17 21:11 (Lexiva) 700 mg BID PO 02/03/17 09:00 02/09/17 09:24 (Epivir) 150 mg DAILY PO 02/03/17 09:00 02/09/17 09:24 (Keppra) 750 mg Q12HR PO 02/03/17 09:00 02/09/17 09:24 (Norvir) 100 mg BID PO 02/03/17 09:00 02/09/17 09:24 (Blistex Lip [place]) 1 applic UNSCH PRN TOPICAL 02/03/17 00:15 02/03/17 04:40 (Eucerin Cream) 1 applic TID TOPICAL 02/03/17 18:00 02/09/17 17:24 (Hydrocortisone 1% Cream) 1 applic TID TOPICAL 02/03/17 18:00 02/09/17 17:24 (Tylenol) 650 mg Q4H PRN PO 02/04/17 06:30 (Benadryl) 25 mg Q4H PRN PO 02/04/17 06:30 (Phoslo) 1,334 mg TID PO 02/05/17 09:00 02/09/17 17:22 (Rocaltrol) 0.25 mcg DAILY PO 02/05/17 11:00 02/09/17 09:24 Urinary Catheter: No Vascular Central Line Catheter: No A/P Assessment and Plan 26 year old male with HIV, ESRD on dialysis, history of lymphoma, and s/p splenectomy presents with leukocytosis of unknown etiology and pain around the PermCath and peritoneal dialysis catheter sites that initially resolved but patient developed leukocytosis again starting on 02/07 at 11.8 and 16.7 on . Restarted Zyvox and Rocephin on 02/09. WBC scan negative for s/s of infection. Possible leukocytosis due to asplenia. D/w Rip Cai and Edwina Discharge Planning Plan for discharge in 1-2 days pending resolution of leukocytosis. Patient will need 24 hours with normal white blood cell count. Problem List: (1) Anemia Status: Acute Plan: - H/H stable at 10.0/32.0 today - up from 6.7/21.9 on 02/04, s/p transfusion of 1uPRBCs -Continue to monitor (2) SIRS (systemic inflammatory response syndrome) ICD Codes: R65.10 - Systemic inflammatory response syndrome (SIRS) of non- infectious origin without acute organ dysfunction Status: Resolved Plan: Met criteria of SIRS on admission with tachycardia, borderline low blood pressures, leukocytosis. Afebrile. Source of infection unidentified. - Urine culture and repeat Blood cx NGTD - Infectious disease following - Discontinued Ceftriaxone and Linezolid 02/06/17-->small increase in WBC from 10.5->11.8 in 1 day, worsened to the 13.0 on 02/08. Will resume ceftriaxone and linezolid today - CD4 count 275 on 02/03/17 vs 475 on 08/09/14--taking retrovirals in hospital - WBC scan performed on 02/06 - no acute disease (3) Stage 5 chronic kidney disease ICD Codes: N18.5 - Chronic kidney disease, stage 5 Status: Acute Plan: Patient with stage 5 chronic kidney disease, recently started hemodialysis. Currently getting dialysis through [facility], with plans for eventual peritoneal dialysis. On TTS schedule for dialysis. -Appreciate nephrology advice (4) Human immunodeficiency virus (HIV) positive Status: Chronic Plan: - Continue antiretrovirals - CD4 count 275 on 02/03/17 vs 475 on 08/09/14--taking retrovirals in hospital (5) Amputated below knee Status: Chronic Plan: - Needs assistance - Per PT: Patient does not need physical therapy at home (6) Amputated below elbow Status: Chronic Plan: - Needs assistance per Physical therapy/Occupational therapy - Per pt: does not need assistance (7) Pressure ulcer of left leg, stage 1 ICD Codes: L89.891 - Pressure ulcer of other site, stage 1 Status: Chronic Plan: Wound care managing (8) Pressure ulcer of right leg, stage 1 ICD Codes: L89.891 - Pressure ulcer of other site, stage 1 Status: Chronic Plan: Wound care managing (9) Dry skin dermatitis ICD Codes: L85.3 - Xerosis cutis Status: Acute Plan: Discontinued Eucerin and 1% hydrocortisone cream mix at pt request (10) No contraindication to deep vein thrombosis (DVT) prophylaxis ICD Codes: Z78.9 - Other specified health status Status: Acute Plan: Heparin 5000 units every 8 hours (11) Nutrition, metabolism, and development symptoms ICD Codes: R63.8 - Other symptoms and signs concerning food and fluid intake Status: Acute Plan: Oral fluids Renal diet Monitor electrolytes and replace as needed Dialysis TTS, nephrology on board Problem Qualifiers (1) Amputated below knee: Qualified Codes: Z89.512 - Acquired absence of left leg below knee; Z89.511 - Acquired absence of right leg below knee (2) Amputated below elbow: Qualified Codes: Z89.212 - Acquired absence of left upper limb below elbow Live Lai MD R1 Feb 09, 2017 09:43
[2017-02-09 11:59] VITALS: BP 105/70; PULSE 77; RESP 20; TEMP 97.9; O2SAT 98
[2017-02-09] MEDS: oxyCODONE/ACETAMINOPHEN 5 MG/325 MG TAB PO PRN (12:22)
--- NOTE | 2017-02-09 14:53 | HHI.IDPN ---
Note Infectious Disease Note Patient is awake. Feels fine. No fever. WBC elevated. WBC scan negative. PAST MEDICAL HISTORY 1. HIV disease 2. History of lymphoma 3. End-stage renal disease on hemodialysis. 4. Recent peritoneal dialysis catheter placement 5. Bilateral amputation 6. Amputation of the left upper extremity below the elbow. 7. Splenectomy. ALLERGIES AMOXICILLIN PENICILLIN ANTIBIOTICS Ceftriaxone Zyvox OBJECTIVE: Vital Signs Date Time Temp Pulse Resp B/P (MAP) Pulse Ox O2 Delivery O2 Flow Rate FiO2 02/09/17 11:59 97.9 77 20 105/70 (82) 98 02/09/17 08:22 98.7 87 20 107/70 (82) 98 02/09/17 04:59 98.5 91 17 100/61 (74) 99 02/09/17 00:08 99.4 107 17 103/55 (71) 96 02/08/17 21:22 98.6 104 20 105/64 (78) 95 Laboratory Tests Test 02/08/17 07:10 02/09/17 05:28 White Blood Count 13.0 TH/MM3 16.7 TH/MM3 Red Blood Count 4.04 MIL/MM3 3.90 MIL/MM3 Hemoglobin 10.5 GM/DL 10.0 GM/DL Hematocrit 33.0 % 32.0 % Mean Corpuscular Volume 81.9 FL 82.0 FL Mean Corpuscular Hemoglobin 26.0 PG 25.6 PG Mean Corpuscular Hemoglobin Concent 31.7 % 31.2 % Red Cell Distribution Width 16.2 % 16.3 % Platelet Count 147 TH/MM3 176 TH/MM3 Mean Platelet Volume 9.6 FL 10.1 FL Neutrophils (%) (Auto) 69.0 % Lymphocytes (%) (Auto) 18.0 % Monocytes (%) (Auto) 8.0 % Eosinophils (%) (Auto) 4.5 % Basophils (%) (Auto) 0.5 % Neutrophils # (Auto) 11.5 TH/MM3 Lymphocytes # (Auto) 3.0 TH/MM3 Monocytes # (Auto) 1.3 TH/MM3 Eosinophils # (Auto) 0.8 TH/MM3 Basophils # (Auto) 0.1 TH/MM3 CBC Comment AUTO DIFF Differential Total Cells Counted 100 Neutrophils % (Manual) 67 % Lymphocytes % 18 % Monocytes % 6 % Eosinophils % 9 % Neutrophils # (Manual) 11.2 TH/MM3 Nucleated Red Blood Cells 11 /100 WBC Differential Comment FINAL DIFF MANUAL Platelet Estimate NORMAL Platelet Morphology Comment ENLARGED Target Cells 1+ Ohara-Mcfall Bodies PRESENT Laboratory Tests Test 02/08/17 07:10 02/09/17 05:28 Blood Urea Nitrogen 17 MG/DL 22 MG/DL Creatinine 4.36 MG/DL 5.87 MG/DL Random Glucose 78 MG/DL 78 MG/DL Calcium Level 9.4 MG/DL 10.0 MG/DL Sodium Level 134 MEQ/L 133 MEQ/L Potassium Level 3.9 MEQ/L 3.6 MEQ/L Chloride Level 98 MEQ/L 96 MEQ/L Carbon Dioxide Level 27.1 MEQ/L 26.3 MEQ/L Anion Gap 9 MEQ/L 11 MEQ/L Estimat Glomerular Filtration Rate 20 ML/MIN 14 ML/MIN IMAGING: Last Impressions Tumor Localization 02/06/17 0000 Signed Impressions: Service Date/Time: Tuesday, February 07, 2017 13:48 - CONCLUSION: No acute disease. Chico Rael MD Chest X-Ray 02/02/17 0000 Signed Impressions: Service Date/Time: Thursday, February 02, 2017 18:14 - CONCLUSION: 1. Right IJ tunneled dialysis catheter with the tip projecting over the central venous system. 2. Lungs are clear. Bruce Romo MD PHYSICAL EXAMINATION GENERAL: No acute distress. HEENT: sclera appears nonicteric. Oropharynx mucosa appears moist. No thrush. NECK: Supple without adenopathy. LUNGS: Clear breath sounds. CHEST: The patient has a Perma catheter in the right upper chest which has no drainage at the entry site. HEART: Regular S1, S2 without murmurs. ABDOMEN: Bowel sounds present, soft, non tender. PD catheter is in place. EXTREMITIES: No clubbing, cyanosis or edema. SKIN: No rash. PSYCHIATRIC: Flat affect. IMPRESSION Leukocytosis. unclear etiology. now normal. No foci of infection. ? associated with asplenia. Negative culture and WBC scan . Clinically looks stable. HIV disease. RECOMMENDATIONS 1. Get hematology consult. 2. Continue HIV medications. 3. WBC can probably be followed outpatient. 4. Can stop antibiotics from ID standpoint. Shady Agosto MD Feb 09, 2017 14:53
[2017-02-09] MEDS: cefTRIAXone INJ 1,000 MG in SODIUM CHLORIDE 0.9% INJ 100 ML IV SCH (15:26)
[2017-02-09 16:40] VITALS: BP 110/72; PULSE 83; RESP 20; TEMP 98.4; O2SAT 98
[2017-02-09] MEDS: oxyCODONE/ACETAMINOPHEN 10 MG/325 MG TAB PO PRN (18:14)
--- NOTE | 2017-02-09 19:23 | HHI.NPPN ---
Subjective History of Present Illness 26-year-old male known to me from before with a past medical history of HIV, history of lymphoma and splenectomy, end-stage renal disease on hemodialysis with a PD catheter inserted recently, history of bilateral above-knee amputations and amputation of the left arm. He was admitted because of generalized weakness, nausea, vomiting and pain at the site of the PermCath and abdominal pain. I was called to see the patient for the management of dialysis. The patient has been on hemodialysis Thursday, and Thursday. He had his last dialysis done on Thursday and the patient has a PD catheter in. He is supposed to be getting training for the peritoneal dialysis. Additional Remarks Patient is alert, no SOB, remain afebrile, eating well, asking for more food. Review of Systems General Constitutional: Fatigue Respiratory Lungs: SOB Cardiovascular Cardiac: HERMAN Gastrointestinal Gastrointestinal: Abdominal Pain Objective Data Data 02/09/17 02/10/17 19:00 07:00 Intake Total 820 ml Balance 820 ml Intake Oral 720 ml IV Total 100 ml # Voids 3 # Bowel Movements 1 Vital Signs Date Time Temp Pulse Resp B/P (MAP) Pulse Ox O2 Delivery O2 Flow Rate FiO2 02/09/17 16:40 98.4 83 20 110/72 (85) 98 02/09/17 11:59 97.9 77 20 105/70 (82) 98 02/09/17 08:22 98.7 87 20 107/70 (82) 98 02/09/17 04:59 98.5 91 17 100/61 (74) 99 02/09/17 00:08 99.4 107 17 103/55 (71) 96 02/08/17 21:22 98.6 104 20 105/64 (78) 95 -: 02/09/17 0528 02/09/17 0528 Physical Exam General Appearance: No Acute Distress, Comfortable Eyes Eye Exam: Pupils Equal Throat Throat Exam: Oral Mucosa [place] & Moist Pulmonary Resp Exam: Breath Sounds Equal, No Distress, Decreased Bases Cardiology CV Exam: Regular, Normal Sinus Rhythm Gastrointestinal/Abdomen GI Exam: Soft, Non-Tender, Bowel Sounds Present, Non-Distended (has PD Catheter in place.) Extremeties Extremeties Remarks Bilateral AKA. Neurologic Neuro Exam: Alert, Awake, Oriented Assessment/Plan Assessment Summary: Anemia of CKD, Hypertension, End Stage Renal Disease Problem List: (1) HIV (human immunodeficiency virus infection) ICD Codes: Z21 - Asymptomatic human immunodeficiency virus [HIV] infection status Status: Chronic (2) HTN (hypertension) ICD Codes: I10 - Essential (primary) hypertension Status: Resolved (3) Abdominal pain ICD Codes: R10.9 - Unspecified abdominal pain (4) Leukocytosis ICD Codes: D72.829 - Elevated white blood cell count, unspecified Status: Chronic (5) Generalized pain ICD Codes: R52 - Pain, unspecified Status: Acute (6) Stage 5 chronic kidney disease ICD Codes: N18.5 - Chronic kidney disease, stage 5 Status: Acute (7) Dependent on hemodialysis ICD Codes: Z99.2 - Dependence on renal dialysis Status: Acute Plan Patient remain afebrile. WBC still elevated. Blood cultures remain negative. Hematology consulted. HD will be in AM. Abd. pain is better. To start PD once discharged. Calcium increased, D/C Calcitriol. Continue PhosLo. Problem Qualifiers (1) HTN (hypertension): Qualified Codes: I10 - Essential (primary) hypertension (2) Leukocytosis: Qualified Codes: D72.829 - Elevated white blood cell count, unspecified Levi Solis MD Feb 09, 2017 19:23
[2017-02-09 20:51] VITALS: BP 103/67; PULSE 66; RESP 18; TEMP 97.7; O2SAT 96
[2017-02-09] MEDS: FAMOTIDINE 20 MG TAB PO SCH (22:44)
[2017-02-10] MEDS: oxyCODONE/ACETAMINOPHEN 10 MG/325 MG TAB PO PRN (00:11)
[2017-02-10 00:52] VITALS: BP 104/66; PULSE 72; RESP 18; TEMP 97.8; O2SAT 100
[2017-02-10] MEDS: HEPARIN SODIUM - SQ 10,000 UNITS/ML VIAL SQ SCH ×3 (04:00→20:00)
[2017-02-10 05:38] VITALS: BP 103/67; PULSE 66; RESP 18; TEMP 97.5; O2SAT 97
--- NOTE | 2017-02-10 07:43 | MB ---
cc: ANGÉLICA ORTIZ M.D. DATE OF CONSULTATION 02/09/2017 REASON FOR CONSULTATION Consult requested for evaluation of leukocytosis with left shift. HISTORY OF PRESENT ILLNESS Abhishek is a 26-year-old male. He has a history of HIV and end-stage renal disease. He also has a history of lymphoma and underwent splenectomy. He recently had a Perma-Cath and peritoneal dialysis catheter placed in for the dialysis. He came into the emergency room complaining of pain around the Perma-Cath and also at the peritoneal dialysis catheter. He is admitted to the hospital. He is being treated with antibiotics. Infectious Disease has been consulted. The patient has persistent leukocytosis and I have been asked to see him for further evaluation. REVIEW OF SYSTEMS The patient denies any fevers. He has been complaining of pain around the catheter site. He is complaining of weakness, tiredness, fatigue. The rest of the review of systems is negative. PAST MEDICAL HISTORY 1. HIV positive. 2. End-stage renal disease. 3. History of lymphoma. PAST SURGICAL HISTORY 1. Bilateral amputation of lower legs and left upper extremity. 2. Perma-Cath placement and peritoneal dialysis catheter placement. ALLERGIES AMOXICILLIN. PENICILLIN. MEDICATIONS Please see the EMR. FAMILY HISTORY Noncontributory. SOCIAL HISTORY The patient does not smoke cigarettes, does not drink alcohol. PHYSICAL EXAMINATION GENERAL: He is a well-developed, chronically ill-appearing Afro-[place] male in no apparent distress. VITAL SIGNS: Temperature 98.4, heart rate is 83, blood pressure 110/72. O2 saturation 98%. HEENT: PERRLA. EOMI. Anicteric. No oral lesions noted. NECK: No lymphadenopathy noted. LUNGS: Clear. No wheezing, rhonchi or rales. HEART: Regular rate and rhythm. ABDOMEN: Soft. Tenderness noted due to the peritoneal catheter. EXTREMITIES: Bilateral lower leg amputation and right upper extremity amputation noted. SKIN: Very dry and scaly. ASSESSMENT Leukocytosis with neutrophilia and premature cells. The most likely etiology is either myeloproliferative disorder versus reactive leukocytosis from infection/inflammation. PLAN I have reviewed his available records and I had an extensive discussion with the patient regarding the causes of leukocytosis with left shift. The patient's white count on admission was 16.4; with antibiotic it came down to 7.5 and now it is again rising. He is on the antibiotics. He does not have any fevers. All the blood cultures have been negative. The patient has a toxic granulation on admission. The differential is myeloproliferative disorder versus reactive leukocytosis from inflammation/infection. I will order the peripheral smear for the pathologist to review. I have also ordered JAK2 mutation and BCR/ABL by FISH to evaluate for any myeloproliferative disorder. I will also order the C-reactive protein and sed rate to evaluate for reactive leukocytosis. Further recommendations based on his hospital stay. I have discussed the case with his leather tooler, Dr. Solis. Thank you for asking my opinion. Oneil Ortiz MD /SSB /10:51 PM /7:36 AM
[2017-02-10 08:00] VITALS: BP 108/72; PULSE 78; RESP 20; TEMP 97.9; O2SAT 95
[2017-02-10 08:09] LABS: AUTOMATED NEUTROPHIL # 4.9 TH/MM3 (1.8-7.7); BASOPHIL # 0.1 TH/MM3 (0-0.2); BASOPHIL % 0.6 % (0.0-2.0); EOSINOPHIL # 1.2 TH/MM3 (0-0.4); HEMATOCRIT 36.3 % (39.0-51.0); LYMPH % 39.7 % (9.0-44.0); LYMPHOCYTE # 4.8 TH/MM3 (1.0-4.8); MEAN CORPUSCULAR HEMOGLOBIN 26.3 PG (27.0-34.0); MEAN CORPUSCULAR HGB CONC 31.6 % (32.0-36.0); MONO % 9.1 % (0.0-8.0); NEUT % 40.6 % (16.0-70.0); PLATELET COUNT 157 TH/MM3 (150-450); RED BLOOD COUNT 4.37 MIL/MM3 (4.50-5.90); RED CELL DISTRIBUTION WIDTH 17.2 % (11.6-17.2)
[2017-02-10 08:14] LABS: HEMO FLAGS AUTO DIFF
[2017-02-10 08:42] LABS: WESTERGREN SEDIMENTATION RATE 55 mm/hr (0-15)
[2017-02-10] MEDS: SODIUM CHLORIDE 0.9% FLUSH 10 ML FLUSH IV FLUSH SCH ×2 (09:00→21:00)
[2017-02-10] MEDS: HYDROCORTISONE 1% CREAM 30 GM TOPICAL SCH ×3 (09:00→18:00)
[2017-02-10] MEDS: EUCERIN CREAM 120 GM JAR TOPICAL SCH ×3 (09:00→18:00)
[2017-02-10] MEDS: FOSAMPRENAVIR CALCIUM PO SCH ×2 (09:27→21:56)
[2017-02-10] MEDS: RITONAVIR 100 MG TAB PO SCH ×2 (09:27→21:56)
[2017-02-10] MEDS: levETIRAcetam 250 MG TAB PO SCH ×2 (09:27→21:56)
[2017-02-10] MEDS: DOCUSATE SODIUM 50 MG/SENNA 8.6 MG TAB PO SCH ×2 (09:27→21:56)
[2017-02-10] MEDS: CALCIUM ACETATE 667 MG CAP PO SCH ×3 (09:27→18:00)
[2017-02-10 09:33] LABS: ANION GAP 14 MEQ/L (5-15); BICARBONATE 22.4 MEQ/L (21.0-32.0); BLASTS 1 % (0-0); BLOOD UREA NITROGEN 30 MG/DL (7-18); CHLORIDE 97 MEQ/L (98-107); CORRECTED NUCLEATED RBC 2 /100 WBC (0-0); EOSINOPHILS 8 % (0-4); GLOMERULAR FILTRATION RATE 12 ML/MIN (>89); NEUTROPHIL # MANUAL DIFF 5.5 TH/MM3 (1.8-7.7); PLATELET ESTIMATE SMEAR NORMAL (NORMAL); PLATELET MORPHOLOGY NORMAL (NORMAL); POLYS (SEG NEUTROPHILS) 46 % (16-70); POTASSIUM 4.3 MEQ/L (3.5-5.1); SODIUM (NA) 133 MEQ/L (136-145); WBC DIFF SAMPLE 100
[2017-02-10] MEDS: ABACAVIR SULFATE 300 MG TAB PO SCH ×2 (09:33→21:56)
[2017-02-10 09:34] LABS: HOWELL-JOLLY BODIES PRESENT (NONE SEEN); SCAN/DIFF FINAL DIFF MANUAL; TARGET CELLS 1+ (NORMAL)
[2017-02-10 09:35] LABS: ALT (GPT) 31 U/L (12-78); AST (GOT) 36 U/L (15-37)
[2017-02-10 09:44] LABS: ALKALINE PHOSPHATASE 149 U/L (45-117); TOTAL BILIRUBIN ADULT 0.3 MG/DL (0.2-1.0)
--- NOTE | 2017-02-10 10:15 | PD.ONC.PN ---
Subjective Subjective Remarks Afebrile overnight. Patient resting in bed watching TV. No complaints. Denies pain. Objective Data Date Time Temp Pulse Resp B/P (MAP) Pulse Ox O2 Delivery O2 Flow Rate FiO2 02/10/17 08:00 97.9 78 20 108/72 (84) 95 02/10/17 05:38 97.5 66 18 103/67 (79) 97 02/10/17 00:52 97.8 72 18 104/66 (79) 100 02/09/17 20:51 97.7 66 18 103/67 (79) 96 02/09/17 16:40 98.4 83 20 110/72 (85) 98 02/09/17 11:59 97.9 77 20 105/70 (82) 98 02/10/17 02/10/17 02/10/17 07:00 15:00 23:00 Output Total 900 ml Balance -900 ml Result Diagram: 02/10/17 0627 02/10/1727 Laboratory Results Laboratory Tests Test 02/10/17 06:27 White Blood Count 12.0 TH/MM3 Red Blood Count 4.37 MIL/MM3 Hemoglobin 11.5 GM/DL Hematocrit 36.3 % Mean Corpuscular Volume 83.0 FL Mean Corpuscular Hemoglobin 26.3 PG Mean Corpuscular Hemoglobin Concent 31.6 % Red Cell Distribution Width 17.2 % Platelet Count 157 TH/MM3 Mean Platelet Volume 9.8 FL Neutrophils (%) (Auto) 40.6 % Lymphocytes (%) (Auto) 39.7 % Monocytes (%) (Auto) 9.1 % Eosinophils (%) (Auto) 10.0 % Basophils (%) (Auto) 0.6 % Neutrophils # (Auto) 4.9 TH/MM3 Lymphocytes # (Auto) 4.8 TH/MM3 Monocytes # (Auto) 1.1 TH/MM3 Eosinophils # (Auto) 1.2 TH/MM3 Basophils # (Auto) 0.1 TH/MM3 CBC Comment AUTO DIFF Differential Total Cells Counted 100 Neutrophils % (Manual) 46 % Lymphocytes % 31 % Monocytes % 14 % Eosinophils % 8 % Neutrophils # (Manual) 5.5 TH/MM3 Nucleated Red Blood Cells 2 /100 WBC Differential Comment FINAL DIFF MANUAL Blastocytes 1 % Platelet Estimate NORMAL Platelet Morphology Comment NORMAL Target Cells 1+ [place] Bodies PRESENT Red Cell Morphology Comment Blood Smear Pathologist Review Erythrocyte Sedimentation Rate 55 mm/hr Blood Urea Nitrogen 30 MG/DL Creatinine 6.91 MG/DL Random Glucose 58 MG/DL Total Protein 7.7 GM/DL Albumin 2.9 GM/DL Calcium Level 11.1 MG/DL Alkaline Phosphatase 149 U/L Aspartate Amino Transf (AST/SGOT) 36 U/L Alanine Aminotransferase (ALT/SGPT) 31 U/L Total Bilirubin 0.3 MG/DL Sodium Level 133 MEQ/L Potassium Level 4.3 MEQ/L Chloride Level 97 MEQ/L Carbon Dioxide Level 22.4 MEQ/L Anion Gap 14 MEQ/L Estimat Glomerular Filtration Rate 12 ML/MIN C-Reactive Protein 2.60 MG/DL Administered Medications Medications (Trade) Dose Ordered Sig/Moose Route PRN Reason Start Time Stop Time Status Last Admin Dose Admin Sodium Chloride (NS Flush) 2 ml BID IV FLUSH 02/02/17 21:00 02/09/17 21:00 Acetaminophen (Tylenol) 650 mg Q4H PRN PO TEMP > 100.4 02/02/17 18:15 02/04/17 01:54 Heparin Sodium (Porcine) (Heparin Inj) 5,000 units Q8H SQ 02/02/17 20:00 02/09/17 22:45 Senna/Docusate Sodium (Janeen-Colace) 1 tab BID PO 02/02/17 21:00 02/10/17 09:27 Oxycodone/ Acetaminophen (Percocet 5-325 Mg) 1 tab Q6H PRN PO PAIN SCALE 3 TO 5 02/02/17 22:30 02/09/17 12:22 Oxycodone/ Acetaminophen (Percocet 10-325 Mg) 1 tab Q6H PRN PO PAIN SCALE 6 TO 10 02/02/17 22:30 02/10/17 00:11 Sodium Chloride 1,000 ml @ 0 mls/hr Q0M PRN OTHER For Prime & Rinse Back 02/02/17 22:32 02/05/17 20:02 Sodium Chloride (NS Flush) 5 ml UNSCH PRN IV FLUSH WITH DIALYSIS 02/02/17 22:45 02/05/17 20:02 Heparin Sodium (Porcine) (Heparin Inj) UNSCH PRN .XX WITH DIALYSIS 02/02/17 22:45 02/07/17 12:25 Gentamicin Sulfate (Gentamicin (Dialysis) Inj) 20 mg UNSCH PRN OTHER WITH DIALYSIS 02/02/17 22:45 02/07/17 12:26 Ondansetron HCl (Zofran Inj) 4 mg UNSCH PRN IV PUSH WITH DIALYSIS 02/02/17 22:45 02/10/17 00:11 Diphenhydramine HCl (Benadryl) 25 mg UNSCH PRN PO for hives/itching/anaphylaxis 02/02/17 22:45 02/09/17 18:14 Epoetin Jesse (Epogen Inj) 10,000 units UNSCH PRN IV PUSH WITH DIALYSIS 02/02/17 22:45 02/07/17 12:25 Abacavir Sulfate (Ziagen) 300 mg BID PO 02/03/17 09:00 02/10/17 09:33 Famotidine (Pepcid) 20 mg HS PO 02/03/17 21:00 02/09/17 22:44 Fosamprenavir Calcium (Lexiva) 700 mg BID PO 02/03/17 09:00 02/10/17 09:27 Lamivudine (Epivir) 150 mg DAILY PO 02/03/17 09:00 02/10/17 09:27 Levetriacetam (Keppra) 750 mg Q12HR PO 02/03/17 09:00 02/10/17 09:27 Ritonavir (Norvir) 100 mg BID PO 02/03/17 09:00 02/10/17 09:27 Oxybenzone/ Padimate O/ Dimethicone (Blistex Lip Whitetop) 1 applic UNSCH PRN TOPICAL CHAPPED LIPS 02/03/17 00:15 02/03/17 04:40 Multi-Ingredient Ointment (Eucerin Cream) 1 applic TID TOPICAL 02/03/17 18:00 02/09/17 17:24 Hydrocortisone (Hydrocortisone 1% Cream) 1 applic TID TOPICAL 02/03/17 18:00 02/09/17 17:24 Diphenhydramine HCl (Benadryl) 25 mg Q4H PRN PO SEE LABEL COMMENTS 02/04/17 06:30 02/09/17 22:44 Calcium Acetate (Phoslo) 1,334 mg TID PO 02/05/17 09:00 02/10/17 09:27 Objective Remarks GENERAL: Young chronically ill male sitting up in bed, watching TV SKIN: Warm and dry. HEAD: Normocephalic. EYES: No injection or drainage. NECK: Supple, trachea midline. CARDIOVASCULAR: Regular rate and rhythm RESPIRATORY: Breath sounds equal bilaterally. No accessory muscle use. GASTROINTESTINAL: Abdomen soft, non-tender, nondistended. EXTREMITIES: No cyanosis. lower leg amputations bilaterally, RUE amputation. NEUROLOGICAL: awake and alert, normal speech. Assessment/Plan Problem List: (1) Leukocytosis ICD Codes: D72.829 - Elevated white blood cell count, unspecified Status: Chronic Plan: 02/10: CRP/ESR elevated. WBC 12K today. likely reactive. monitor --Leukocytosis with neutrophilia and premature cells. --myeloproliferative disorder versus reactive leukocytosis from infection/ inflammation. --blood cultures negative. --peripheral smear for the pathologist to review pending --JAK2 mutation and BCR/ABL by FISH pending to eval myeloproliferative disorder. Assessment 26y/o male with h/o HIV and ESRD. Oncology consulted for leukocytosis History of lymphoma. Bilateral amputation of lower legs and left upper extremity. Perma-Cath placement and peritoneal dialysis catheter placement. Attending Statement The exam, history, and the medical decision-making described in the above note were completed with the assistance of the mid-level provider. I reviewed and agree with the findings presented. I attest that I had a [id number] encounter with the patient on the same day, and personally performed and documented my assessment and findings in the medical record. No new complaints Hi WBC count is coming down Leukocytosis is most likely reactive Workup is pending Problem Qualifiers (1) Leukocytosis: Qualified Codes: D72.829 - Elevated white blood cell count, unspecified Neha Beckham Feb 10, 2017 10:15 Ezekiel Ortiz MD Feb 10, 2017 21:43
--- NOTE | 2017-02-10 11:19 | HHI.FPPN ---
Subjective Remarks Mr Yu had no acute events overnight. He has no pain or concerns this morning. Explained to him the plan of getting a workup by Gina for his leukocytosis which he is ok with. Denies CP, SOB, N/D/V and DVT pain. Objective Vitals Vital Signs Date Time Temp Pulse Resp B/P (MAP) Pulse Ox O2 Delivery O2 Flow Rate FiO2 02/10/17 08:00 97.9 78 20 108/72 (84) 95 02/10/17 05:38 97.5 66 18 103/67 (79) 97 02/10/17 00:52 97.8 72 18 104/66 (79) 100 02/09/17 20:51 97.7 66 18 103/67 (79) 96 02/09/17 16:40 98.4 83 20 110/72 (85) 98 02/09/17 11:59 97.9 77 20 105/70 (82) 98 I/O 02/09/17 02/09/17 02/09/17 02/10/17 02/10/17 02/10/17 07:00 15:00 23:00 07:00 15:00 23:00 Intake Total 240 ml 720 ml 100 ml Output Total 550 ml 900 ml Balance -310 ml 720 ml 100 ml -900 ml Intake Oral 240 ml 720 ml IV Total 100 ml Output Urine Total 550 ml 900 ml # Voids 3 # Bowel Movements 1 Result Diagram: 02/10/1762602/10/17626 Other Results Negative WBC Ceretec scan Objective Remarks CONSTITUTIONAL/GEN: Well nourished AAM resting in bed in NAD. EYES: Conjunctiva normal, PERRLA, EOMI. ENT: Lips are dry and peeling, no oral lesions. NECK: Supple, non-tender, without lymphadenopathy. LUNGS: Clear lung tony bilaterally with normal respiratory effort. No wheezes or crackles. CARDIOVASCULAR: RRR without murmur, rub, or gallop. GI/ABD: Soft, non-tender, nondistended without masses, without organomegaly. Peritoneal dialysis catheter site wrapped in bandage, unable to assess due to patient's refusal to allow examination NEURO: No focal deficits. SKIN: Normal color, dry with flaking and peeling including on his scalp described as residual from antibiotic allergy at previous hospitalization . HEME/LYMPH: No bruising, petechia or significant adenopathy MUSC: Bilateral BKAs and left lower arm amputated below elbow. The stumps of the lower extremities are not tender to palpation. PSYCH/MENTAL STATUS: Alert and oriented x 3. A/P Assessment and Plan 26 year old male with HIV, ESRD on dialysis, history of lymphoma, and s/p splenectomy presents with leukocytosis of unknown etiology and pain around the PermCath and peritoneal dialysis catheter sites that initially resolved but patient developed leukocytosis again starting on 02/07 at 11.8 and 16.7 on . Restarted Zyvox and Rocephin on 02/09. WBC scan negative for s/s of infection. Heme consulted and provides DDx of myeloproliferative disorder vs reactive leukocytosis. D/w Rip Cai and Edwina Discharge Planning Plan for discharge in 1-2 days pending resolution of leukocytosis. Patient will need 24 hours with normal white blood cell count. Problem List: (1) Anemia Status: Acute Plan: - H/H stable at 11.5/36.3 today - up from 6.7/21.9 on 02/04, s/p transfusion of 1uPRBCs - increased following restart of Zyvox x1 day -Continue to monitor -Heme consulted and following: ddx of myeloproliferative DO vs reactive leukocytosis -Heme labs --ESR 55 --CRP 2.6 --smear path review pending --JAK2 mutation pending --BCR/ABL mutation pending (2) SIRS (systemic inflammatory response syndrome) ICD Codes: R65.10 - Systemic inflammatory response syndrome (SIRS) of non- infectious origin without acute organ dysfunction Status: Resolved Plan: Met criteria of SIRS on admission with tachycardia, borderline low blood pressures, leukocytosis. Afebrile. Source of infection unidentified. - Urine culture and repeat Blood cx NGTD - ID and Heme following - Discontinued Ceftriaxone and Linezolid 02/06/17-->WBC 11.8 02/07-->13.0 on -->16.0 02/09 -Resumed Ceftriaxone and linezolid 02/09 and WBC 12.5 on 02/10 - CD4 count 275 on 02/03/17 vs 475 on 08/09/14--taking retrovirals in hospital - WBC scan performed on 02/06 - no acute disease (3) Stage 5 chronic kidney disease ICD Codes: N18.5 - Chronic kidney disease, stage 5 Status: Acute Plan: Patient with stage 5 chronic kidney disease, recently started hemodialysis. [facility], with plans for eventual peritoneal dialysis. On TTS schedule for dialysis. -Appreciate nephrology advice (4) Human immunodeficiency virus (HIV) positive Status: Chronic Plan: - Continue antiretrovirals - CD4 count 275 on 02/03/17 vs 475 on 08/09/14--taking retrovirals in hospital (5) Amputated below knee Status: Chronic Plan: - Needs assistance - Per PT: Patient does not need physical therapy at home (6) Amputated below elbow Status: Chronic Plan: - Needs assistance per Physical therapy/Occupational therapy - Per pt: does not need assistance (7) Pressure ulcer of left leg, stage 1 ICD Codes: L89.891 - Pressure ulcer of other site, stage 1 Status: Chronic Plan: Wound care managing (8) Pressure ulcer of right leg, stage 1 ICD Codes: L89.891 - Pressure ulcer of other site, stage 1 Status: Chronic Plan: Wound care managing (9) Dry skin dermatitis ICD Codes: L85.3 - Xerosis cutis Status: Acute Plan: Discontinued Eucerin and 1% hydrocortisone cream mix at pt request (10) No contraindication to deep vein thrombosis (DVT) prophylaxis ICD Codes: Z78.9 - Other specified health status Status: Acute Plan: Heparin 5000 units every 8 hours (11) Nutrition, metabolism, and development symptoms ICD Codes: R63.8 - Other symptoms and signs concerning food and fluid intake Status: Acute Plan: Oral fluids Renal diet Monitor electrolytes and replace as needed Dialysis TTS, nephrology on board Problem Qualifiers (1) Amputated below knee: Qualified Codes: Z89.512 - Acquired absence of left leg below knee; Z89.511 - Acquired absence of right leg below knee (2) Amputated below elbow: Qualified Codes: Z89.212 - Acquired absence of left upper limb below elbow Live Lai MD R1 Feb 10, 2017 11:19
[2017-02-10 12:43] VITALS: BP 103/73; PULSE 93; RESP 20; TEMP 98.2; O2SAT 94
[2017-02-10] MEDS: HEPARIN SODIUM - IV 10,000 UNITS/10 ML VIAL PRN (16:44)
[2017-02-10] MEDS: EPOETIN ALFA 10,000 UNITS/ML VIAL IV PUSH PRN (16:44)
[2017-02-10] MEDS: GENTAMICIN SULFATE (DIALYSIS USE ONLY) 20 MG/2 ML VIAL OTHER PRN (16:44)
--- NOTE | 2017-02-10 18:41 | HHI.NPPN ---
Subjective History of Present Illness 26-year-old male known to me from before with a past medical history of HIV, history of lymphoma and splenectomy, end-stage renal disease on hemodialysis with a PD catheter inserted recently, history of bilateral above-knee amputations and amputation of the left arm. He was admitted because of generalized weakness, nausea, vomiting and pain at the site of the PermCath and abdominal pain. I was called to see the patient for the management of dialysis. The patient has been on hemodialysis Thursday, and Thursday. He had his last dialysis done on Thursday and the patient has a PD catheter in. He is supposed to be getting training for the peritoneal dialysis. Additional Remarks Patient is alert, no SOB, remain afebrile, eating well, asking for more food. Review of Systems General Constitutional: Fatigue Respiratory Lungs: SOB Cardiovascular Cardiac: HERMAN Gastrointestinal Gastrointestinal: Abdominal Pain Objective Data Data 02/10/17 02/11/17 19:00 07:00 Output Total 1500 ml Balance -1500 ml Hemodialysis 1500 ml Vital Signs Date Time Temp Pulse Resp B/P (MAP) Pulse Ox O2 Delivery O2 Flow Rate FiO2 02/10/17 12:43 98.2 93 20 103/73 (83) 94 02/10/17 08:00 97.9 78 20 108/72 (84) 95 02/10/17 05:38 97.5 66 18 103/67 (79) 97 02/10/17 00:52 97.8 72 18 104/66 (79) 100 02/09/17 20:51 97.7 66 18 103/67 (79) 96 -: 02/10/17 0627 02/10/17 0627 Physical Exam General Appearance: No Acute Distress, Comfortable Eyes Eye Exam: Pupils Equal Throat Throat Exam: Oral Mucosa Browns & Moist Pulmonary Resp Exam: Breath Sounds Equal, No Distress, Decreased Bases Cardiology CV Exam: Regular, Normal Sinus Rhythm Gastrointestinal/Abdomen GI Exam: Soft, Non-Tender, Bowel Sounds Present, Non-Distended (has PD Catheter in place.) Extremeties Extremeties Remarks Bilateral AKA. Neurologic Neuro Exam: Alert, Awake, Oriented Assessment/Plan Assessment Summary: Anemia of CKD, Hypertension, End Stage Renal Disease Problem List: (1) HIV (human immunodeficiency virus infection) ICD Codes: Z21 - Asymptomatic human immunodeficiency virus [HIV] infection status Status: Chronic (2) HTN (hypertension) ICD Codes: I10 - Essential (primary) hypertension Status: Resolved (3) Abdominal pain ICD Codes: R10.9 - Unspecified abdominal pain (4) Leukocytosis ICD Codes: D72.829 - Elevated white blood cell count, unspecified Status: Chronic (5) Generalized pain ICD Codes: R52 - Pain, unspecified Status: Acute (6) Stage 5 chronic kidney disease ICD Codes: N18.5 - Chronic kidney disease, stage 5 Status: Acute (7) Dependent on hemodialysis ICD Codes: Z99.2 - Dependence on renal dialysis Status: Acute Plan Patient remain afebrile. WBC still elevated. Blood cultures remain negative. Hematology consulted. HD will be in AM. Abd. pain is better. To start PD once discharged. Calcium increased, D/C Calcitriol. Continue PhosLo. Problem Qualifiers (1) HTN (hypertension): Qualified Codes: I10 - Essential (primary) hypertension (2) Leukocytosis: Qualified Codes: D72.829 - Elevated white blood cell count, unspecified Levi Solis MD Feb 10, 2017 18:41
[2017-02-10 20:00] VITALS: BP 93/56; PULSE 99; RESP 18; TEMP 99.3; O2SAT 97
[2017-02-10] MEDS: FAMOTIDINE 20 MG TAB PO SCH (21:56)
[2017-02-11 01:00] VITALS: BP 103/74; PULSE 106; RESP 18; TEMP 98.5; O2SAT 98
[2017-02-11] MEDS: HEPARIN SODIUM - SQ 10,000 UNITS/ML VIAL SQ SCH ×3 (03:24→20:00)
[2017-02-11 04:00] VITALS: BP 95/59; PULSE 92; RESP 18; TEMP 98.5; O2SAT 98
[2017-02-11 05:58] LABS: AUTOMATED NEUTROPHIL # 9.2 TH/MM3 (1.8-7.7); BASOPHIL # 0.3 TH/MM3 (0-0.2); BASOPHIL % 1.3 % (0.0-2.0); EOSINOPHIL # 1.5 TH/MM3 (0-0.4); EOSINOPHIL % 7.5 % (0.0-4.0); HEMATOCRIT 34.9 % (39.0-51.0); LYMPH % 34.1 % (9.0-44.0); MEAN CELL VOLUME 82.1 FL (80.0-100.0); MEAN CORPUSCULAR HEMOGLOBIN 25.9 PG (27.0-34.0); MEAN CORPUSCULAR HGB CONC 31.6 % (32.0-36.0); MONO % 12.6 % (0.0-8.0); NEUT % 44.5 % (16.0-70.0); PLATELET COUNT 112 TH/MM3 (150-450); RED BLOOD COUNT 4.26 MIL/MM3 (4.50-5.90); RED CELL DISTRIBUTION WIDTH 16.4 % (11.6-17.2); WHITE BLOOD COUNT 20.6 TH/MM3 (4.0-11.0)
[2017-02-11 06:00] LABS: HEMO FLAGS AUTO DIFF
[2017-02-11 06:21] LABS: BICARBONATE 26.5 MEQ/L (21.0-32.0); POTASSIUM 3.9 MEQ/L (3.5-5.1)
[2017-02-11] MEDS: RITONAVIR 100 MG TAB PO SCH ×2 (07:51→21:48)
[2017-02-11] MEDS: CALCIUM ACETATE 667 MG CAP PO SCH ×3 (07:51→18:00)
[2017-02-11] MEDS: levETIRAcetam 250 MG TAB PO SCH ×2 (07:51→21:48)
[2017-02-11] MEDS: FOSAMPRENAVIR CALCIUM PO SCH ×2 (07:51→21:49)
[2017-02-11] MEDS: ABACAVIR SULFATE 300 MG TAB PO SCH ×2 (07:51→21:48)
[2017-02-11] MEDS: DOCUSATE SODIUM 50 MG/SENNA 8.6 MG TAB PO SCH ×2 (07:51→21:49)
[2017-02-11 08:00] VITALS: BP 99/64; PULSE 104; RESP 16; TEMP 98.4; O2SAT 96
[2017-02-11 08:03] LABS: BANDS 1 % (0-6); BASOPHILS 1 % (0-2); CORRECTED NUCLEATED RBC 7 /100 WBC (0-0); EOSINOPHILS 4 % (0-4); METAMYELOCYTES 3 % (0-1); NEUTROPHIL # MANUAL DIFF 11.5 TH/MM3 (1.8-7.7); POLYS (SEG NEUTROPHILS) 52 % (16-70); WBC DIFF SAMPLE 100
[2017-02-11 08:04] LABS: PLATELET ESTIMATE SMEAR LOW (NORMAL); PLATELET MORPHOLOGY NORMAL (NORMAL); SCAN/DIFF FINAL DIFF MANUAL
[2017-02-11 08:05] LABS: HOWELL-JOLLY BODIES PRESENT (NONE SEEN); TARGET CELLS 1+ (NORMAL)
[2017-02-11] MEDS: EUCERIN CREAM 120 GM JAR TOPICAL SCH ×3 (09:00→18:00)
[2017-02-11] MEDS: HYDROCORTISONE 1% CREAM 30 GM TOPICAL SCH ×3 (09:00→18:00)
[2017-02-11] MEDS: diphenhydrAMINE HCL 25 MG CAP PO PRN (09:30)
[2017-02-11] MEDS: SODIUM CHLORIDE 0.9% FLUSH 10 ML FLUSH IV FLUSH SCH ×2 (09:31→21:00)
[2017-02-11 12:00] VITALS: BP 103/63; PULSE 97; RESP 16; TEMP 98.5; O2SAT 98
--- NOTE | 2017-02-11 13:15 | HHI.FPPN ---
Subjective Remarks Mr Yu had no acute events overnight and has no complaints. States he lost his first leg when he was 12 due to hypoperfusion, but has no idea what caused it. He has never heard whether he has any problems with his blood. Again denies history of sickle cell. He is wondering when he can go home. Denies CP, SOB, N/V /D, DVT pain, fever or chills. Objective Vitals Vital Signs Date Time Temp Pulse Resp B/P (MAP) Pulse Ox O2 Delivery O2 Flow Rate FiO2 02/11/17 08:00 98.4 104 16 99/64 (76) 96 02/11/17 04:00 98.5 92 18 95/59 (71) 98 02/11/17 01:00 98.5 106 18 103/74 (84) 98 02/10/17 20:00 99.3 99 18 93/56 (68) 97 I/O 02/10/17 02/10/17 02/10/17 02/11/17 02/11/17 02/11/17 07:00 15:00 23:00 07:00 15:00 23:00 Output Total 900 ml 1500 ml Balance -900 ml -1500 ml Output Urine Total 900 ml Hemodialysis 1500 ml # Voids 3 # Bowel Movements 2 Result Diagram: 02/11/17 0546 02/11/17 0546 Objective Remarks CONSTITUTIONAL/GEN: Well nourished AAM resting in bed in NAD. EYES: Conjunctiva normal, PERRLA, EOMI. ENT: Lips are dry and peeling, no oral lesions. NECK: Supple, non-tender, without lymphadenopathy. LUNGS: Clear lung tony bilaterally with normal respiratory effort. No wheezes or crackles. CARDIOVASCULAR: RRR without murmur, rub, or gallop. GI/ABD: Soft, non-tender, nondistended without masses, without organomegaly. Peritoneal dialysis catheter site wrapped in bandage, unable to assess due to patient's refusal to allow examination. Normal BS. NEURO: No focal deficits. SKIN: Normal color, dry with flaking and peeling including on his scalp described as residual from antibiotic allergy at previous hospitalization . HEME/LYMPH: No bruising, petechia or significant adenopathy MUSC: Bilateral BKAs and left lower arm amputated below elbow. The stumps of the lower extremities are not tender to palpation. PSYCH/MENTAL STATUS: Alert and oriented x 3. Medications and IVs Current Medications Medications (Trade) Dose Ordered Sig/Moose Route Start Time Stop Time Status Last Admin (NS Flush) 2 ml UNSCH PRN IV FLUSH 02/02/17 18:15 (NS Flush) 2 ml BID IV FLUSH 02/02/17 21:00 02/11/17 09:31 (Tylenol) 650 mg Q4H PRN PO 02/02/17 18:15 02/04/17 01:54 (Zofran Inj) 4 mg Q6H PRN IVP 02/02/17 18:15 (Heparin Inj) 5,000 units Q8H SQ 02/02/17 20:00 02/09/17 22:45 (Narcan Inj) 0.4 mg UNSCH PRN IV PUSH 02/02/17 18:15 (Janeen-Colace) 1 tab BID PO 02/02/17 21:00 02/11/17 07:51 (Milk Of Magnesia Liq) 30 ml Q12H PRN PO 02/02/17 18:15 (Senokot) 17.2 mg Q12H PRN PO 02/02/17 18:15 (Dulcolax Supp) 10 mg DAILY PRN RECTAL 02/02/17 18:15 (Lactulose Liq) 30 ml DAILY PRN PO 02/02/17 18:15 (Tylenol) 650 mg Q6H PRN PO 02/02/17 22:30 (Percocet 5-325 Mg) 1 tab Q6H PRN PO 02/02/17 22:30 02/09/17 12:22 (Percocet 10-325 Mg) 1 tab Q6H PRN PO 02/02/17 22:30 02/10/17 00:11 (Morphine Inj) 4 mg Q3H PRN IV PUSH 02/02/17 22:30 (Narcan Inj) 0.4 mg UNSCH PRN IV PUSH 02/02/17 22:30 Sodium Chloride 1,000 ml @ 0 mls/hr Q0M PRN OTHER 02/02/17 22:32 02/05/17 20:02 (Heparin Inj) 8,000 units UNSCH PRN IV FLUSH 02/02/17 22:45 Sodium Chloride 1,000 ml @ 200 mls/hr Q5H PRN IV 02/02/17 22:32 Sodium Chloride 1,000 ml @ 0 mls/hr Q0M PRN OTHER 02/02/17 22:32 (Mannitol Inj) 12.5 gm UNSCH PRN IV 02/02/17 22:45 Albumin Human 100 ml @ 60 mls/hr UNSCH PRN IV 02/02/17 22:45 (NS Flush) 5 ml UNSCH PRN IV FLUSH 02/02/17 22:45 02/05/17 20:02 (Heparin Inj) UNSCH PRN .XX 02/02/17 22:45 02/10/17 16:44 (Gentamicin (Dialysis) Inj) 20 mg UNSCH PRN OTHER 02/02/17 22:45 02/10/17 16:44 (Zofran Inj) 4 mg UNSCH PRN IV PUSH 02/02/17 22:45 02/10/17 00:11 (Tylenol) 650 mg UNSCH PRN PO 02/02/17 22:45 (Benadryl) 25 mg UNSCH PRN PO 02/02/17 22:45 02/11/17 09:30 (Nitrostat Sl) 0.4 mg UNSCH PRN SL 02/02/17 22:45 (Catapres) 0.1 mg UNSCH PRN PO 02/02/17 22:45 (Epogen Inj) 10,000 units UNSCH PRN IV PUSH 02/02/17 22:45 02/10/17 16:44 (Gelfoam 12 Mm/7 Mm Top) 1 foam UNSCH PRN TOP 02/02/17 22:45 (Ziagen) 300 mg BID PO 02/03/17 09:00 02/11/17 07:51 (Pepcid) 20 mg HS PO 02/03/17 21:00 02/10/17 21:56 (Lexiva) 700 mg BID PO 02/03/17 09:00 02/11/17 07:51 (Epivir) 150 mg DAILY PO 02/03/17 09:00 02/11/17 07:51 (Keppra) 750 mg Q12HR PO 02/03/17 09:00 02/11/17 07:51 (Norvir) 100 mg BID PO 02/03/17 09:00 02/11/17 07:51 (Blistex Lip [place]) 1 applic UNSCH PRN TOPICAL 02/03/17 00:15 02/03/17 04:40 (Eucerin Cream) 1 applic TID TOPICAL 02/03/17 18:00 02/11/17 09:00 (Hydrocortisone 1% Cream) 1 applic TID TOPICAL 02/03/17 18:00 02/11/17 09:00 (Tylenol) 650 mg Q4H PRN PO 02/04/17 06:30 (Benadryl) 25 mg Q4H PRN PO 02/04/17 06:30 02/09/17 22:44 (Phoslo) 1,334 mg TID PO 02/05/17 09:00 02/11/17 07:51 Urinary Catheter: No Vascular Central Line Catheter: No A/P Assessment and Plan 26 YO male w/PMHx HIV, ESRD on dialysis TTS, history of lymphoma, and s/p splenectomy presents with leukocytosis of unknown etiology and pain around the PermCath and peritoneal dialysis catheter sites that initially resolved but patient developed leukocytosis again starting on 02/07 at 11.8 and 16.7 on . Restarted Zyvox and Rocephin on 02/09. WBC scan negative for s/s of infection. Heme consulted and provides DDx of myeloproliferative disorder vs reactive leukocytosis with extra lab tests being performed. Pathology review suggests we consider hemoglobinopathy vs thalassemia. D/w Jimmy Saldaña and Edwina Discharge Planning Plan for discharge in 1-2 days pending resolution of leukocytosis. Patient will need 24 hours with normal white blood cell count. Problem List: (1) Anemia Status: Acute Plan: - H/H stable at 11.0/34.9 today - up from 6.7/21.9 on 02/04, s/p transfusion of 1uPRBCs -Daily CBC -Heme consulted and following: ddx of myeloproliferative DO vs reactive leukocytosis -Heme labs --ESR 55 --CRP 2.6 --smear path review recommends considering hemoglobinopathy vs thalassemia -- > ordered blood electrophoresis 02/11 --JAK2 mutation pending --BCR/ABL mutation pending (2) SIRS (systemic inflammatory response syndrome) ICD Codes: R65.10 - Systemic inflammatory response syndrome (SIRS) of non- infectious origin without acute organ dysfunction Status: Resolved Plan: Met SIRS criteria on admission with tachycardia, borderline low blood pressures, leukocytosis. Afebrile. Source of infection unidentified. - Urine culture and repeat Blood cx NGTD - ID and Heme following - Discontinued Ceftriaxone and Linezolid 02/06/17-->WBC 11.8 02/07-->13.0 on -->16.0 02/09 -Resumed Ceftriaxone and linezolid 02/09 for one day and WBC 12.5 on 02/10 - CD4 count 275 on 02/03/17 vs 475 on 08/09/14--taking retrovirals in hospital - WBC scan performed on 02/06 - no acute disease (3) Stage 5 chronic kidney disease ICD Codes: N18.5 - Chronic kidney disease, stage 5 Status: Acute Plan: Patient with stage 5 chronic kidney disease, recently started hemodialysis. Currently getting dialysis through [facility], with plans for eventual peritoneal dialysis. On TTS schedule for dialysis. -Appreciate nephrology advice (4) Human immunodeficiency virus (HIV) positive Status: Chronic Plan: - Continue antiretrovirals - CD4 count 275 on 02/03/17 vs 475 on 08/09/14--taking retrovirals in hospital (5) Amputated below knee Status: Chronic Plan: - Needs assistance - Per PT: Patient does not need physical therapy at home (6) Amputated below elbow Status: Chronic Plan: - Needs assistance per Physical therapy/Occupational therapy - Per pt: does not need assistance (7) Pressure ulcer of left leg, stage 1 ICD Codes: L89.891 - Pressure ulcer of other site, stage 1 Status: Chronic Plan: Wound care managing (8) Pressure ulcer of right leg, stage 1 ICD Codes: L89.891 - Pressure ulcer of other site, stage 1 Status: Chronic Plan: Wound care managing (9) Dry skin dermatitis ICD Codes: L85.3 - Xerosis cutis Status: Acute Plan: Discontinued Eucerin and 1% hydrocortisone cream mix at pt request (10) No contraindication to deep vein thrombosis (DVT) prophylaxis ICD Codes: Z78.9 - Other specified health status Status: Acute Plan: Heparin 5000 units every 8 hours (11) Nutrition, metabolism, and development symptoms ICD Codes: R63.8 - Other symptoms and signs concerning food and fluid intake Status: Acute Plan: Oral fluids Renal diet Monitor electrolytes and replace as needed Dialysis TTS, nephrology on board Problem Qualifiers (1) Amputated below knee: Qualified Codes: Z89.512 - Acquired absence of left leg below knee; Z89.511 - Acquired absence of right leg below knee (2) Amputated below elbow: Qualified Codes: Z89.212 - Acquired absence of left upper limb below elbow Live Lai MD R1 Feb 11, 2017 13:15
[2017-02-11] MEDS: oxyCODONE/ACETAMINOPHEN 10 MG/325 MG TAB PO PRN (15:08)
[2017-02-11 16:00] VITALS: BP 103/67; PULSE 82; RESP 16; TEMP 98.5; O2SAT 97
--- NOTE | 2017-02-11 17:37 | PD.ONC.PN ---
Subjective Subjective Remarks no new c/o Objective Data Date Time Temp Pulse Resp B/P (MAP) Pulse Ox O2 Delivery O2 Flow Rate FiO2 02/11/17 17:30 18 02/11/17 12:00 98.5 97 16 103/63 (76) 98 02/11/17 08:00 98.4 104 16 99/64 (76) 96 02/11/17 04:00 98.5 92 18 95/59 (71) 98 02/11/17 01:00 98.5 106 18 103/74 (84) 98 02/10/17 20:00 99.3 99 18 93/56 (68) 97 Result Diagram: 02/11/17 0546 02/11/17 0546 Laboratory Results Laboratory Tests Test 02/11/17 05:46 02/11/17 14:10 White Blood Count 20.6 TH/MM3 Red Blood Count 4.26 MIL/MM3 Hemoglobin 11.0 GM/DL Hematocrit 34.9 % Mean Corpuscular Volume 82.1 FL Mean Corpuscular Hemoglobin 25.9 PG Mean Corpuscular Hemoglobin Concent 31.6 % Red Cell Distribution Width 16.4 % Platelet Count 112 TH/MM3 Mean Platelet Volume 9.7 FL Neutrophils (%) (Auto) 44.5 % Lymphocytes (%) (Auto) 34.1 % Monocytes (%) (Auto) 12.6 % Eosinophils (%) (Auto) 7.5 % Basophils (%) (Auto) 1.3 % Neutrophils # (Auto) 9.2 TH/MM3 Lymphocytes # (Auto) 7.0 TH/MM3 Monocytes # (Auto) 2.6 TH/MM3 Eosinophils # (Auto) 1.5 TH/MM3 Basophils # (Auto) 0.3 TH/MM3 CBC Comment AUTO DIFF Differential Total Cells Counted 100 Neutrophils % (Manual) 52 % Band Neutrophils % 1 % Lymphocytes % 30 % Monocytes % 9 % Eosinophils % 4 % Basophils % 1 % Neutrophils # (Manual) 11.5 TH/MM3 Metamyelocytes 3 % Nucleated Red Blood Cells 7 /100 WBC Differential Comment FINAL DIFF MANUAL Platelet Estimate LOW Platelet Morphology Comment NORMAL Target Cells 1+ [place] Bodies PRESENT Red Cell Morphology Comment Blood Urea Nitrogen 13 MG/DL Creatinine 4.82 MG/DL Random Glucose 79 MG/DL Calcium Level 8.9 MG/DL Sodium Level 133 MEQ/L Potassium Level 3.9 MEQ/L Chloride Level 97 MEQ/L Carbon Dioxide Level 26.5 MEQ/L Anion Gap 10 MEQ/L Estimat Glomerular Filtration Rate 18 ML/MIN Administered Medications Medications (Trade) Dose Ordered Sig/[place] Route PRN Reason Start Time Stop Time Status Last Admin Dose Admin Sodium Chloride (NS Flush) 2 ml BID IV FLUSH 02/02/17 21:00 02/11/17 09:31 Acetaminophen (Tylenol) 650 mg Q4H PRN PO TEMP > 100.4 02/02/17 18:15 02/04/17 01:54 Heparin Sodium (Porcine) (Heparin Inj) 5,000 units Q8H SQ 02/02/17 20:00 02/09/17 22:45 Senna/Docusate Sodium (Janeen-Colace) 1 tab BID PO 02/02/17 21:00 02/11/17 07:51 Oxycodone/ Acetaminophen (Percocet 5-325 Mg) 1 tab Q6H PRN PO PAIN SCALE 3 TO 5 02/02/17 22:30 02/09/17 12:22 Oxycodone/ Acetaminophen (Percocet 10-325 Mg) 1 tab Q6H PRN PO PAIN SCALE 6 TO 10 02/02/17 22:30 02/11/17 15:08 Sodium Chloride 1,000 ml @ 0 mls/hr Q0M PRN OTHER For Prime & Rinse Back 02/02/17 22:32 02/05/17 20:02 Sodium Chloride (NS Flush) 5 ml UNSCH PRN IV FLUSH WITH DIALYSIS 02/02/17 22:45 02/05/17 20:02 Heparin Sodium (Porcine) (Heparin Inj) UNSCH PRN .XX WITH DIALYSIS 02/02/17 22:45 02/10/17 16:44 Gentamicin Sulfate (Gentamicin (Dialysis) Inj) 20 mg UNSCH PRN OTHER WITH DIALYSIS 02/02/17 22:45 02/10/17 16:44 Ondansetron HCl (Zofran Inj) 4 mg UNSCH PRN IV PUSH WITH DIALYSIS 02/02/17 22:45 02/10/17 00:11 Diphenhydramine HCl (Benadryl) 25 mg UNSCH PRN PO for hives/itching/anaphylaxis 02/02/17 22:45 02/11/17 09:30 Epoetin Jesse (Epogen Inj) 10,000 units UNSCH PRN IV PUSH WITH DIALYSIS 02/02/17 22:45 02/10/17 16:44 Abacavir Sulfate (Ziagen) 300 mg BID PO 02/03/17 09:00 02/11/17 07:51 Famotidine (Pepcid) 20 mg HS PO 02/03/17 21:00 02/10/17 21:56 Fosamprenavir Calcium (Lexiva) 700 mg BID PO 02/03/17 09:00 02/11/17 07:51 Lamivudine (Epivir) 150 mg DAILY PO 02/03/17 09:00 02/11/17 07:51 Levetriacetam (Keppra) 750 mg Q12HR PO 02/03/17 09:00 02/11/17 07:51 Ritonavir (Norvir) 100 mg BID PO 02/03/17 09:00 02/11/17 07:51 Oxybenzone/ Padimate O/ Dimethicone (Blistex Lip [place]) 1 applic UNSCH PRN TOPICAL CHAPPED LIPS 02/03/17 00:15 02/03/17 04:40 Multi-Ingredient Ointment (Eucerin Cream) 1 applic TID TOPICAL 02/03/17 18:00 02/11/17 09:00 Hydrocortisone (Hydrocortisone 1% Cream) 1 applic TID TOPICAL 02/03/17 18:00 02/11/17 09:00 Diphenhydramine HCl (Benadryl) 25 mg Q4H PRN PO SEE LABEL COMMENTS 02/04/17 06:30 02/09/17 22:44 Calcium Acetate (Phoslo) 1,334 mg TID PO 02/05/17 09:00 02/11/17 13:18 Objective Remarks GENERAL: Well-nourished, well-developed patient. SKIN: Warm and dry. HEAD: Normocephalic. EYES: No scleral icterus. No injection or drainage. NECK: Supple, trachea midline. No JVD or lymphadenopathy. LYMPHATIC: No adenopathy. CARDIOVASCULAR: Regular rate and rhythm without murmurs. RESPIRATORY: Breath sounds equal bilaterally. No accessory muscle use. GASTROINTESTINAL: Abdomen soft, non-tender, nondistended. EXTREMITIES: No cyanosis, or edema. MUSCULOSKELETAL: Adequate muscle tone. NEUROLOGICAL: No obvious focal deficit. Awake, alert, and oriented x3. PSYCHIATRIC: Appropriate mood and affect; insight and judgment normal. Assessment/Plan Problem List: (1) Leukocytosis ICD Codes: D72.829 - Elevated white blood cell count, unspecified Status: Chronic Plan: 02/11 Jurgen-2 and BCR-ABL pending Leucocytosis most likely reactive 02/10: CRP/ESR elevated. WBC 12K today. likely reactive. monitor --Leukocytosis with neutrophilia and premature cells. --myeloproliferative disorder versus reactive leukocytosis from infection/ inflammation. --blood cultures negative. --peripheral smear for the pathologist to review pending --JAK2 mutation and BCR/ABL by FISH pending to eval myeloproliferative disorder. Assessment 26y/o male with h/o HIV and ESRD. Oncology consulted for leukocytosis History of lymphoma. Bilateral amputation of lower legs and left upper extremity. Perma-Cath placement and peritoneal dialysis catheter placement. Problem Qualifiers (1) Leukocytosis: Qualified Codes: D72.829 - Elevated white blood cell count, unspecified Ezekiel Ortiz MD Feb 11, 2017 17:37
--- NOTE | 2017-02-11 18:27 | HHI.NPPN ---
Subjective History of Present Illness 26-year-old male known to me from before with a past medical history of HIV, history of lymphoma and splenectomy, end-stage renal disease on hemodialysis with a PD catheter inserted recently, history of bilateral above-knee amputations and amputation of the left arm. He was admitted because of generalized weakness, nausea, vomiting and pain at the site of the PermCath and abdominal pain. I was called to see the patient for the management of dialysis. The patient has been on hemodialysis Thursday, and Thursday. He had his last dialysis done on Thursday and the patient has a PD catheter in. He is supposed to be getting training for the peritoneal dialysis. Additional Remarks Patient is alert, no SOB, remain afebrile, eating well, asking for more food. Review of Systems General Constitutional: Fatigue Respiratory Lungs: SOB Cardiovascular Cardiac: HERMAN Gastrointestinal Gastrointestinal: Abdominal Pain Objective Data Data Vital Signs Date Time Temp Pulse Resp B/P (MAP) Pulse Ox O2 Delivery O2 Flow Rate FiO2 02/11/17 17:30 18 02/11/17 16:00 98.5 82 16 103/67 (79) 97 02/11/17 12:00 98.5 97 16 103/63 (76) 98 02/11/17 08:00 98.4 104 16 99/64 (76) 96 02/11/17 04:00 98.5 92 18 95/59 (71) 98 02/11/17 01:00 98.5 106 18 103/74 (84) 98 02/10/17 20:00 99.3 99 18 93/56 (68) 97 -: 02/11/17 0546 02/11/17 0546 Physical Exam General Appearance: No Acute Distress, Comfortable Eyes Eye Exam: Pupils Equal Throat Throat Exam: Oral Mucosa [place] & Moist Pulmonary Resp Exam: Breath Sounds Equal, No Distress, Decreased Bases Cardiology CV Exam: Regular, Normal Sinus Rhythm Gastrointestinal/Abdomen GI Exam: Soft, Non-Tender, Bowel Sounds Present, Non-Distended (has PD Catheter in place.) Extremeties Extremeties Remarks Bilateral AKA. Neurologic Neuro Exam: Alert, Awake, Oriented Assessment/Plan Assessment Summary: Anemia of CKD, Hypertension, End Stage Renal Disease Problem List: (1) HIV (human immunodeficiency virus infection) ICD Codes: Z21 - Asymptomatic human immunodeficiency virus [HIV] infection status Status: Chronic (2) HTN (hypertension) ICD Codes: I10 - Essential (primary) hypertension Status: Resolved (3) Abdominal pain ICD Codes: R10.9 - Unspecified abdominal pain (4) Leukocytosis ICD Codes: D72.829 - Elevated white blood cell count, unspecified Status: Chronic (5) Generalized pain ICD Codes: R52 - Pain, unspecified Status: Acute (6) Stage 5 chronic kidney disease ICD Codes: N18.5 - Chronic kidney disease, stage 5 Status: Acute (7) Dependent on hemodialysis ICD Codes: Z99.2 - Dependence on renal dialysis Status: Acute Plan Patient remain afebrile. WBC still elevated. Blood cultures remain negative. Hematology consulted. HD will be in AM. Abd. pain is better. To start PD once discharged. Calcium increased, D/C Calcitriol. Continue PhosLo. Problem Qualifiers (1) HTN (hypertension): Qualified Codes: I10 - Essential (primary) hypertension (2) Leukocytosis: Qualified Codes: D72.829 - Elevated white blood cell count, unspecified Levi Solis MD Feb 11, 2017 18:27
[2017-02-11] MEDS: FAMOTIDINE 20 MG TAB PO SCH (21:49)
[2017-02-11 21:58] VITALS: BP 107/65; PULSE 84; RESP 18; TEMP 98.4; O2SAT 97
[2017-02-12 01:24] VITALS: BP 104/60; PULSE 80; RESP 16; TEMP 98.5; O2SAT 100
[2017-02-12] MEDS: HEPARIN SODIUM - SQ 10,000 UNITS/ML VIAL SQ SCH ×4 (03:22→21:42)
[2017-02-12 08:43] VITALS: BP 96/63; PULSE 88; RESP 20; TEMP 98.5; O2SAT 96
[2017-02-12] MEDS: EUCERIN CREAM 120 GM JAR TOPICAL SCH ×2 (09:00→13:00)
[2017-02-12] MEDS: HYDROCORTISONE 1% CREAM 30 GM TOPICAL SCH ×2 (09:00→13:00)
--- NOTE | 2017-02-12 09:22 | HHI.FPPN ---
Subjective Remarks Mr. Yu is doing well this morning and has no acute concerns. He denies fever , nausea, vomiting, abdominal pain. Objective Vitals Vital Signs Date Time Temp Pulse Resp B/P (MAP) Pulse Ox O2 Delivery O2 Flow Rate FiO2 02/12/17 08:43 98.5 88 20 96/63 (74) 96 02/12/17 01:24 98.5 80 16 104/60 (75) 100 02/11/17 21:58 98.4 84 18 107/65 (79) 97 02/11/17 17:30 18 02/11/17 16:00 98.5 82 16 103/67 (79) 97 02/11/17 12:00 98.5 97 16 103/63 (76) 98 I/O 02/11/17 02/11/17 02/11/17 02/12/17 02/12/17 02/12/17 07:00 15:00 23:00 07:00 15:00 23:00 # Voids 3 # Bowel Movements 2 Result Diagram: 02/11/1746 02/11/17545 Objective Remarks CONSTITUTIONAL/GEN: Well nourished AAM resting in bed in NAD. EYES: Conjunctiva normal, PERRLA, EOMI. ENT: Lips are dry and peeling, no oral lesions. Very itchy. Patient constantly scratching NECK: Supple, non-tender, without lymphadenopathy. LUNGS: Clear lung tony bilaterally with normal respiratory effort. No wheezes or crackles. CARDIOVASCULAR: RRR without murmur, rub, or gallop. GI/ABD: Soft, non-tender, nondistended without masses, without organomegaly. Peritoneal dialysis catheter site wrapped in bandage NEURO: No focal deficits. SKIN: Normal color, dry with flaking and peeling including on his scalp, scratching during visit HEME/LYMPH: No bruising, petechia or significant adenopathy MUSC: Bilateral BKAs and left lower arm amputated below elbow. PSYCH/MENTAL STATUS: Alert and oriented x 3. A/P Assessment and Plan 26 YO male w/PMHx HIV, ESRD on dialysis TTS, history of lymphoma, and s/p splenectomy presents with leukocytosis of unknown etiology and pain around the PermCath and peritoneal dialysis catheter sites that initially resolved but patient developed leukocytosis again starting on 02/07 at 11.8 and 16.7 on . Restarted Zyvox and Rocephin on 02/09. WBC scan negative for s/s of infection. Heme was consulted and is investigating DDx of myeloproliferative disorder vs reactive leukocytosis with extra lab tests being performed. Pathology review suggests we consider hemoglobinopathy vs thalassemia. Hemoglobin electrophoresis is pending. Seen and examined with Dr. Lai. Discussed with Dr. Cai Discharge Planning Plan for discharge in 1-2 days pending resolution of leukocytosis. Patient will need 24 hours with normal white blood cell count. Problem List: (1) Leukocytosis ICD Codes: D72.829 - Elevated white blood cell count, unspecified Status: Chronic Plan: -Heme consulted and following: ddx of myeloproliferative DO vs reactive leukocytosis -WBC 17.1 on 02/12, 20.6 on 02/11 -Heme labs --ESR 55 --CRP 2.6 --smear path review recommends considering hemoglobinopathy vs thalassemia -- > ordered blood electrophoresis on 02/11 - still pending --JAK2 mutation pending --BCR/ABL mutation pending (2) Anemia Status: Acute Plan: - H/H stable at 10.8/34.2 today -Daily CBC (3) Stage 5 chronic kidney disease ICD Codes: N18.5 - Chronic kidney disease, stage 5 Status: Acute Plan: Patient with stage 5 chronic kidney disease, recently started hemodialysis. Currently getting dialysis through [facility], with plans for eventual peritoneal dialysis. On TTS schedule for dialysis. -Appreciate nephrology advice (4) Human immunodeficiency virus (HIV) positive Status: Chronic Plan: - Continue antiretrovirals - CD4 count 275 on 02/03/17 vs 475 on 08/09/14 - Continue antiretrovirals (5) Amputated below knee Status: Chronic Plan: - Per PT: Patient does not need physical therapy at home (6) Amputated below elbow Status: Chronic Plan: -Independent of ADLs at home per patient (7) Dry skin dermatitis ICD Codes: L85.3 - Xerosis cutis Status: Acute Plan: -Pruritic -Discontinued Eucerin and 1% hydrocortisone cream mix at pt request -Will try Aquaphor ointment (8) No contraindication to deep vein thrombosis (DVT) prophylaxis ICD Codes: Z78.9 - Other specified health status Status: Acute Plan: Heparin 5000 units every 8 hours (9) Nutrition, metabolism, and development symptoms ICD Codes: R63.8 - Other symptoms and signs concerning food and fluid intake Status: Acute Plan: Oral fluids Renal diet Monitor electrolytes and replace as needed Dialysis TTS, nephrology on board Problem Qualifiers (1) Leukocytosis: Qualified Codes: D72.829 - Elevated white blood cell count, unspecified (2) Amputated below knee: Qualified Codes: Z89.512 - Acquired absence of left leg below knee; Z89.511 - Acquired absence of right leg below knee (3) Amputated below elbow: Qualified Codes: Z89.212 - Acquired absence of left upper limb below elbow Luz Bland MD R2 Feb 12, 2017 09:22
[2017-02-12] MEDS: FOSAMPRENAVIR CALCIUM PO SCH ×2 (09:39→21:42)
[2017-02-12] MEDS: RITONAVIR 100 MG TAB PO SCH ×2 (09:39→22:17)
[2017-02-12] MEDS: ABACAVIR SULFATE 300 MG TAB PO SCH ×2 (09:39→21:42)
[2017-02-12] MEDS: DOCUSATE SODIUM 50 MG/SENNA 8.6 MG TAB PO SCH ×2 (09:39→21:42)
[2017-02-12] MEDS: levETIRAcetam 250 MG TAB PO SCH ×2 (09:39→21:42)
[2017-02-12] MEDS: CALCIUM ACETATE 667 MG CAP PO SCH ×3 (09:40→18:00)
[2017-02-12] MEDS: SODIUM CHLORIDE 0.9% FLUSH 10 ML FLUSH IV FLUSH SCH ×2 (09:40→21:00)
[2017-02-12 12:11] VITALS: BP 117/68; PULSE 83; RESP 20; TEMP 98; O2SAT 94
[2017-02-12 12:48] LABS: AUTOMATED NEUTROPHIL # 6.9 TH/MM3 (1.8-7.7); BASOPHIL # 0.1 TH/MM3 (0-0.2); BASOPHIL % 0.8 % (0.0-2.0); EOSINOPHIL # 1.4 TH/MM3 (0-0.4); EOSINOPHIL % 8.3 % (0.0-4.0); HEMATOCRIT 34.2 % (39.0-51.0); LYMPH % 37.6 % (9.0-44.0); LYMPHOCYTE # 6.4 TH/MM3 (1.0-4.8); MEAN CORPUSCULAR HEMOGLOBIN 25.9 PG (27.0-34.0); MEAN CORPUSCULAR HGB CONC 31.6 % (32.0-36.0); NEUT % 40.3 % (16.0-70.0); PLATELET COUNT 148 TH/MM3 (150-450); RED BLOOD COUNT 4.17 MIL/MM3 (4.50-5.90); RED CELL DISTRIBUTION WIDTH 16.9 % (11.6-17.2); WHITE BLOOD COUNT 17.1 TH/MM3 (4.0-11.0)
[2017-02-12 12:52] LABS: HEMO FLAGS AUTO DIFF
[2017-02-12 13:09] LABS: BICARBONATE 28.1 MEQ/L (21.0-32.0); POTASSIUM 3.5 MEQ/L (3.5-5.1)
[2017-02-12] MEDS: diphenhydrAMINE HCL 25 MG CAP PO PRN (13:20)
[2017-02-12 13:56] LABS: CORRECTED NUCLEATED RBC 21 /100 WBC (0-0); EOSINOPHILS 11 % (0-4); HOWELL-JOLLY BODIES PRESENT (NONE SEEN); MYELOCYTES 3 % (0-0); NEUTROPHIL # MANUAL DIFF 6.3 TH/MM3 (1.8-7.7); POLYS (SEG NEUTROPHILS) 34 % (16-70); TARGET CELLS 1+ (NORMAL); WBC DIFF SAMPLE 100
[2017-02-12 13:57] LABS: PLATELET ESTIMATE SMEAR LOW (NORMAL); PLATELET MORPHOLOGY ENLARGED (NORMAL); SCAN/DIFF FINAL DIFF MANUAL
--- NOTE | 2017-02-12 14:35 | PD.ONC.PN ---
Subjective Subjective Remarks Afebrile Gets annoyed with questions Denies any acute complaints Objective Data Date Time Temp Pulse Resp B/P (MAP) Pulse Ox O2 Delivery O2 Flow Rate FiO2 02/12/17 12:11 98.0 83 20 117/68 (84) 94 02/12/17 08:43 98.5 88 20 96/63 (74) 96 02/12/17 01:24 98.5 80 16 104/60 (75) 100 02/11/17 21:58 98.4 84 18 107/65 (79) 97 02/11/17 17:30 18 02/11/17 16:00 98.5 82 16 103/67 (79) 97 Result Diagram: 02/12/17 1155 02/12/17 1155 Laboratory Results Laboratory Tests Test 02/12/17 11:55 White Blood Count 17.1 TH/MM3 Red Blood Count 4.17 MIL/MM3 Hemoglobin 10.8 GM/DL Hematocrit 34.2 % Mean Corpuscular Volume 82.0 FL Mean Corpuscular Hemoglobin 25.9 PG Mean Corpuscular Hemoglobin Concent 31.6 % Red Cell Distribution Width 16.9 % Platelet Count 148 TH/MM3 Mean Platelet Volume 9.9 FL Neutrophils (%) (Auto) 40.3 % Lymphocytes (%) (Auto) 37.6 % Monocytes (%) (Auto) 13.0 % Eosinophils (%) (Auto) 8.3 % Basophils (%) (Auto) 0.8 % Neutrophils # (Auto) 6.9 TH/MM3 Lymphocytes # (Auto) 6.4 TH/MM3 Monocytes # (Auto) 2.2 TH/MM3 Eosinophils # (Auto) 1.4 TH/MM3 Basophils # (Auto) 0.1 TH/MM3 CBC Comment AUTO DIFF Differential Total Cells Counted 100 Neutrophils % (Manual) 34 % Lymphocytes % 37 % Monocytes % 15 % Eosinophils % 11 % Neutrophils # (Manual) 6.3 TH/MM3 Myelocytes 3 % Nucleated Red Blood Cells 21 /100 WBC Differential Comment FINAL DIFF MANUAL Atypical Lymphocytes % Platelet Estimate LOW Platelet Morphology Comment ENLARGED Target Cells 1+ [place] Bodies PRESENT Red Cell Morphology Comment Blood Urea Nitrogen 28 MG/DL Creatinine 7.37 MG/DL Random Glucose 78 MG/DL Calcium Level 9.8 MG/DL Sodium Level 135 MEQ/L Potassium Level 3.5 MEQ/L Chloride Level 95 MEQ/L Carbon Dioxide Level 28.1 MEQ/L Anion Gap 12 MEQ/L Estimat Glomerular Filtration Rate 11 ML/MIN Administered Medications Medications (Trade) Dose Ordered Sig/[place] Route PRN Reason Start Time Stop Time Status Last Admin Dose Admin Sodium Chloride (NS Flush) 2 ml BID IV FLUSH 02/02/17 21:00 02/12/17 09:40 Acetaminophen (Tylenol) 650 mg Q4H PRN PO TEMP > 100.4 02/02/17 18:15 02/04/17 01:54 Heparin Sodium (Porcine) (Heparin Inj) 5,000 units Q8H SQ 02/02/17 20:00 02/09/17 22:45 Senna/Docusate Sodium (Jane[place]-Colace) 1 tab BID PO 02/02/17 21:00 02/12/17 09:39 Oxycodone/ Acetaminophen (Percocet 5-325 Mg) 1 tab Q6H PRN PO PAIN SCALE 3 TO 5 02/02/17 22:30 02/09/17 12:22 Oxycodone/ Acetaminophen (Percocet 10-325 Mg) 1 tab Q6H PRN PO PAIN SCALE 6 TO 10 02/02/17 22:30 02/11/17 15:08 Sodium Chloride 1,000 ml @ 0 mls/hr Q0M PRN OTHER For Prime & Rinse Back 02/02/17 22:32 02/05/17 20:02 Sodium Chloride (NS Flush) 5 ml UNSCH PRN IV FLUSH WITH DIALYSIS 02/02/17 22:45 02/05/17 20:02 Heparin Sodium (Porcine) (Heparin Inj) UNSCH PRN .XX WITH DIALYSIS 02/02/17 22:45 02/10/17 16:44 Gentamicin Sulfate (Gentamicin (Dialysis) Inj) 20 mg UNSCH PRN OTHER WITH DIALYSIS 02/02/17 22:45 02/10/17 16:44 Ondansetron HCl (Zofran Inj) 4 mg UNSCH PRN IV PUSH WITH DIALYSIS 02/02/17 22:45 02/10/17 00:11 Diphenhydramine HCl (Benadryl) 25 mg UNSCH PRN PO for hives/itching/anaphylaxis 02/02/17 22:45 02/12/17 13:20 Epoetin Jesse (Epogen Inj) 10,000 units UNSCH PRN IV PUSH WITH DIALYSIS 02/02/17 22:45 02/10/17 16:44 Abacavir Sulfate (Ziagen) 300 mg BID PO 02/03/17 09:00 02/12/17 09:39 Famotidine (Pepcid) 20 mg HS PO 02/03/17 21:00 02/11/17 21:49 Fosamprenavir Calcium (Lexiva) 700 mg BID PO 02/03/17 09:00 02/12/17 09:39 Lamivudine (Epivir) 150 mg DAILY PO 02/03/17 09:00 02/12/17 09:39 Levetriacetam (Keppra) 750 mg Q12HR PO 02/03/17 09:00 02/12/17 09:39 Ritonavir (Norvir) 100 mg BID PO 02/03/17 09:00 02/12/17 09:39 Oxybenzone/ Padimate O/ Dimethicone (Blistex Lip [place]) 1 applic UNSCH PRN TOPICAL CHAPPED LIPS 02/03/17 00:15 02/03/17 04:40 Diphenhydramine HCl (Benadryl) 25 mg Q4H PRN PO SEE LABEL COMMENTS 02/04/17 06:30 02/09/17 22:44 Calcium Acetate (Phoslo) 1,334 mg TID PO 02/05/17 09:00 02/12/17 13:15 Objective Remarks GENERAL: Chronically ill appearing younger male resting in bed in no acute distress. SKIN: Warm and dry. HEAD: Normocephalic. EYES: No injection or drainage. NECK: Supple, trachea midline. CARDIOVASCULAR: Regular rate and rhythm without murmurs. RESPIRATORY: Clear anteriorly. Breathing unlabored at rest. GASTROINTESTINAL: Abdomen soft, non-tender, nondistended. EXTREMITIES: BLE amputations NEUROLOGICAL: Normal speech. No obvious focal deficit. Assessment/Plan Problem List: (1) Leukocytosis ICD Codes: D72.829 - Elevated white blood cell count, unspecified Status: Chronic Plan: 02/12: Leukocytosis improving. Monitor CBC. Await results of BCR/ABL and JAK2 mutation. --Leukocytosis with neutrophilia and premature cells. --myeloproliferative disorder versus reactive leukocytosis from infection/ inflammation. --blood cultures negative. --peripheral smear for the pathologist to review pending --JAK2 mutation and BCR/ABL by FISH pending to eval myeloproliferative disorder. Assessment 26y/o male with h/o HIV and ESRD. Oncology consulted for leukocytosis History of lymphoma. Bilateral amputation of lower legs and left upper extremity. Perma-Cath placement and peritoneal dialysis catheter placement. Attending Statement The exam, history, and the medical decision-making described in the above note were completed with the assistance of the mid-level provider. I reviewed and agree with the findings presented. I attest that I had a [id number] encounter with the patient on the same day, and personally performed and documented my assessment and findings in the medical record. No new complaints Leukocytosis persist. Most likely reactive. Both ESR and CRP are high BCR/ABL and Jurgen-2 Mutations still pending Monitor CBC Hemoglobin electrophoresis is consistent with the sickle cell trait And possible Beta thalasemia trait Problem Qualifiers (1) Leukocytosis: Qualified Codes: D72.829 - Elevated white blood cell count, unspecified Marichuy Lundberg Feb 12, 2017 14:35 Ezekiel Ortiz MD Feb 12, 2017 23:30
[2017-02-12] MEDS ORDERED: AQUAPHOR OINT 50 APPLIC/50 GM TUBE TOPICAL PRN (16:00)
[2017-02-12] MEDS: EPOETIN ALFA 10,000 UNITS/ML VIAL IV PUSH PRN (17:46)
[2017-02-12] MEDS: GENTAMICIN SULFATE (DIALYSIS USE ONLY) 20 MG/2 ML VIAL OTHER PRN (17:46)
[2017-02-12] MEDS: HEPARIN SODIUM - IV 10,000 UNITS/10 ML VIAL PRN (17:46)
[2017-02-12 20:00] VITALS: BP 98/61; PULSE 91; RESP 18; TEMP 98.4; O2SAT 95
--- NOTE | 2017-02-12 21:41 | HHI.NPPN ---
Subjective History of Present Illness 26-year-old male known to me from before with a past medical history of HIV, history of lymphoma and splenectomy, end-stage renal disease on hemodialysis with a PD catheter inserted recently, history of bilateral above-knee amputations and amputation of the left arm. He was admitted because of generalized weakness, nausea, vomiting and pain at the site of the PermCath and abdominal pain. I was called to see the patient for the management of dialysis. The patient has been on hemodialysis Thursday, and Thursday. He had his last dialysis done on Thursday and the patient has a PD catheter in. He is supposed to be getting training for the peritoneal dialysis. Additional Remarks Patient is alert, seen after HD, feeling better, not in distress. Review of Systems General Constitutional: Fatigue Respiratory Lungs: SOB Cardiovascular Cardiac: HERMAN Gastrointestinal Gastrointestinal: Abdominal Pain Objective Data Data 02/12/17 02/13/17 19:00 07:00 Output Total 1000 ml Balance -1000 ml Hemodialysis 1000 ml Vital Signs Date Time Temp Pulse Resp B/P (MAP) Pulse Ox O2 Delivery O2 Flow Rate FiO2 02/12/17 12:11 98.0 83 20 117/68 (84) 94 02/12/17 08:43 98.5 88 20 96/63 (74) 96 02/12/17 01:24 98.5 80 16 104/60 (75) 100 02/11/17 21:58 98.4 84 18 107/65 (79) 97 -: 02/12/17 1155 02/12/17 1155 Physical Exam General Appearance: No Acute Distress, Comfortable Eyes Eye Exam: Pupils Equal Throat Throat Exam: Oral Mucosa [place] & Moist Pulmonary Resp Exam: Breath Sounds Equal, No Distress, Decreased Bases Cardiology CV Exam: Regular, Normal Sinus Rhythm Gastrointestinal/Abdomen GI Exam: Soft, Non-Tender, Bowel Sounds Present, Non-Distended (has PD Catheter in place.) Extremeties Extremeties Remarks Bilateral AKA. Neurologic Neuro Exam: Alert, Awake, Oriented Assessment/Plan Assessment Summary: Anemia of CKD, Hypertension, End Stage Renal Disease Problem List: (1) HIV (human immunodeficiency virus infection) ICD Codes: Z21 - Asymptomatic human immunodeficiency virus [HIV] infection status Status: Chronic (2) HTN (hypertension) ICD Codes: I10 - Essential (primary) hypertension Status: Resolved (3) Abdominal pain ICD Codes: R10.9 - Unspecified abdominal pain (4) Leukocytosis ICD Codes: D72.829 - Elevated white blood cell count, unspecified Status: Chronic (5) Generalized pain ICD Codes: R52 - Pain, unspecified Status: Acute (6) Stage 5 chronic kidney disease ICD Codes: N18.5 - Chronic kidney disease, stage 5 Status: Acute (7) Dependent on hemodialysis ICD Codes: Z99.2 - Dependence on renal dialysis Status: Acute Plan Patient remain afebrile. WBC still elevated. Blood cultures remain negative. Abd. pain is better. To start PD once discharged. Seen by Hematology for increase WBC. Now WBC is 17, remain afebrile. HD done, continue same. Problem Qualifiers (1) HTN (hypertension): Qualified Codes: I10 - Essential (primary) hypertension (2) Leukocytosis: Qualified Codes: D72.829 - Elevated white blood cell count, unspecified Levi Solis MD Feb 12, 2017 21:41
[2017-02-12] MEDS: FAMOTIDINE 20 MG TAB PO SCH (21:42)
[2017-02-13 00:06] VITALS: BP 109/70; PULSE 87; RESP 16; TEMP 97.9; O2SAT 95
[2017-02-13] MEDS: HEPARIN SODIUM - SQ 10,000 UNITS/ML VIAL SQ SCH ×2 (04:00→12:00)
[2017-02-13] MEDS: oxyCODONE/ACETAMINOPHEN 10 MG/325 MG TAB PO PRN (04:54)
[2017-02-13 04:56] VITALS: BP 107/57; PULSE 85; RESP 16; TEMP 98.2; O2SAT 100
[2017-02-13 07:02] LABS: AUTOMATED NEUTROPHIL # 7.2 TH/MM3 (1.8-7.7); BASOPHIL # 0.1 TH/MM3 (0-0.2); BASOPHIL % 0.8 % (0.0-2.0); EOSINOPHIL % 6.2 % (0.0-4.0); HEMATOCRIT 33.5 % (39.0-51.0); LYMPH % 36.7 % (9.0-44.0); MEAN CELL VOLUME 83.3 FL (80.0-100.0); MEAN CORPUSCULAR HEMOGLOBIN 26.8 PG (27.0-34.0); MEAN CORPUSCULAR HGB CONC 32.1 % (32.0-36.0); MONO % 11.9 % (0.0-8.0); NEUT % 44.4 % (16.0-70.0); PLATELET COUNT 149 TH/MM3 (150-450); RED BLOOD COUNT 4.02 MIL/MM3 (4.50-5.90); RED CELL DISTRIBUTION WIDTH 16.9 % (11.6-17.2); WHITE BLOOD COUNT 16.3 TH/MM3 (4.0-11.0)
[2017-02-13 07:26] LABS: BICARBONATE 27.9 MEQ/L (21.0-32.0)
[2017-02-13 07:27] LABS: POTASSIUM 3.8 MEQ/L (3.5-5.1)
[2017-02-13 07:29] LABS: HEMO FLAGS AUTO DIFF
[2017-02-13 08:42] VITALS: BP 107/75; PULSE 94; RESP 20; TEMP 98.8; O2SAT 97
[2017-02-13] MEDS: SODIUM CHLORIDE 0.9% FLUSH 10 ML FLUSH IV FLUSH SCH (09:00)
[2017-02-13] MEDS: RITONAVIR 100 MG TAB PO SCH (09:00)
[2017-02-13] MEDS: ABACAVIR SULFATE 300 MG TAB PO SCH (09:00)
[2017-02-13 09:14] LABS: CORRECTED NUCLEATED RBC 20 /100 WBC (0-0); EOSINOPHILS 2 % (0-4); NEUTROPHIL # MANUAL DIFF 8.5 TH/MM3 (1.8-7.7); POLYS (SEG NEUTROPHILS) 52 % (16-70); WBC DIFF SAMPLE 100
[2017-02-13 09:15] LABS: HOWELL-JOLLY BODIES PRESENT (NONE SEEN); PLATELET ESTIMATE SMEAR NORMAL (NORMAL); PLATELET MORPHOLOGY NORMAL (NORMAL); POLYCHROMASIA 2.6 % (0.0-1.9); SCAN/DIFF FINAL DIFF MANUAL
[2017-02-13 09:16] LABS: KERATOCYTES OCC (NORMAL); OVALOCYTES 1+ (NORMAL); TARGET CELLS 1+ (NORMAL)
[2017-02-13] MEDS: levETIRAcetam 250 MG TAB PO SCH (09:22)
[2017-02-13] MEDS: FOSAMPRENAVIR CALCIUM PO SCH (09:22)
[2017-02-13] MEDS: CALCIUM ACETATE 667 MG CAP PO SCH ×3 (09:22→18:37)
[2017-02-13] MEDS: DOCUSATE SODIUM 50 MG/SENNA 8.6 MG TAB PO SCH (09:22)
--- NOTE | 2017-02-13 11:14 | PD.ONC.PN ---
Subjective Subjective Remarks Afebrile overnight. Patient resting in bed in nad. No complaints. Objective Data Date Time Temp Pulse Resp B/P (MAP) Pulse Ox O2 Delivery O2 Flow Rate FiO2 02/13/17 08:42 98.8 94 20 107/75 (86) 97 02/13/17 04:56 98.2 85 16 107/57 (74) 100 02/13/17 00:06 97.9 87 16 109/70 (83) 95 02/12/17 20:00 98.4 91 18 98/61 (73) 95 02/12/17 12:11 98.0 83 20 117/68 (84) 94 Result Diagram: 02/13/17 0552 02/13/17 0552 Laboratory Results Laboratory Tests Test 02/12/17 11:55 02/13/17 05:52 White Blood Count 17.1 TH/MM3 16.3 TH/MM3 Red Blood Count 4.17 MIL/MM3 4.02 MIL/MM3 Hemoglobin 10.8 GM/DL 10.8 GM/DL Hematocrit 34.2 % 33.5 % Mean Corpuscular Volume 82.0 FL 83.3 FL Mean Corpuscular Hemoglobin 25.9 PG 26.8 PG Mean Corpuscular Hemoglobin Concent 31.6 % 32.1 % Red Cell Distribution Width 16.9 % 16.9 % Platelet Count 148 TH/MM3 149 TH/MM3 Mean Platelet Volume 9.9 FL 10.0 FL Neutrophils (%) (Auto) 40.3 % 44.4 % Lymphocytes (%) (Auto) 37.6 % 36.7 % Monocytes (%) (Auto) 13.0 % 11.9 % Eosinophils (%) (Auto) 8.3 % 6.2 % Basophils (%) (Auto) 0.8 % 0.8 % Neutrophils # (Auto) 6.9 TH/MM3 7.2 TH/MM3 Lymphocytes # (Auto) 6.4 TH/MM3 6.0 TH/MM3 Monocytes # (Auto) 2.2 TH/MM3 1.9 TH/MM3 Eosinophils # (Auto) 1.4 TH/MM3 1.0 TH/MM3 Basophils # (Auto) 0.1 TH/MM3 0.1 TH/MM3 CBC Comment AUTO DIFF AUTO DIFF Differential Total Cells Counted 100 100 Neutrophils % (Manual) 34 % 52 % Lymphocytes % 37 % 38 % Monocytes % 15 % 8 % Eosinophils % 11 % 2 % Neutrophils # (Manual) 6.3 TH/MM3 8.5 TH/MM3 Myelocytes 3 % Nucleated Red Blood Cells 21 /100 WBC 20 /100 WBC Differential Comment FINAL DIFF MANUAL FINAL DIFF MANUAL Atypical Lymphocytes % Platelet Estimate LOW NORMAL Platelet Morphology Comment ENLARGED NORMAL Target Cells 1+ 1+ [place] Bodies PRESENT PRESENT Red Cell Morphology Comment Blood Urea Nitrogen 28 MG/DL 19 MG/DL Creatinine 7.37 MG/DL 4.84 MG/DL Random Glucose 78 MG/DL 75 MG/DL Calcium Level 9.8 MG/DL 9.3 MG/DL Sodium Level 135 MEQ/L 133 MEQ/L Potassium Level 3.5 MEQ/L 3.8 MEQ/L Chloride Level 95 MEQ/L 97 MEQ/L Carbon Dioxide Level 28.1 MEQ/L 27.9 MEQ/L Anion Gap 12 MEQ/L 8 MEQ/L Estimat Glomerular Filtration Rate 11 ML/MIN 17 ML/MIN Polychromasia 2.6 % Ovalocytes 1+ Keratocytes OCC Administered Medications Medications (Trade) Dose Ordered Sig/Moose Route PRN Reason Start Time Stop Time Status Last Admin Dose Admin Sodium Chloride (NS Flush) 2 ml BID IV FLUSH 02/02/17 21:00 02/13/17 09:00 Acetaminophen (Tylenol) 650 mg Q4H PRN PO TEMP > 100.4 02/02/17 18:15 02/04/17 01:54 Heparin Sodium (Porcine) (Heparin Inj) 5,000 units Q8H SQ 02/02/17 20:00 02/12/17 21:42 Senna/Docusate Sodium (Janeen-Colace) 1 tab BID PO 02/02/17 21:00 02/13/17 09:22 Oxycodone/ Acetaminophen (Percocet 5-325 Mg) 1 tab Q6H PRN PO PAIN SCALE 3 TO 5 02/02/17 22:30 02/09/17 12:22 Oxycodone/ Acetaminophen (Percocet 10-325 Mg) 1 tab Q6H PRN PO PAIN SCALE 6 TO 10 02/02/17 22:30 02/13/17 04:54 Sodium Chloride 1,000 ml @ 0 mls/hr Q0M PRN OTHER For Prime & Rinse Back 02/02/17 22:32 02/05/17 20:02 Sodium Chloride (NS Flush) 5 ml UNSCH PRN IV FLUSH WITH DIALYSIS 02/02/17 22:45 02/05/17 20:02 Heparin Sodium (Porcine) (Heparin Inj) UNSCH PRN .XX WITH DIALYSIS 02/02/17 22:45 02/12/17 17:46 Gentamicin Sulfate (Gentamicin (Dialysis) Inj) 20 mg UNSCH PRN OTHER WITH DIALYSIS 02/02/17 22:45 02/12/17 17:46 Ondansetron HCl (Zofran Inj) 4 mg UNSCH PRN IV PUSH WITH DIALYSIS 02/02/17 22:45 02/10/17 00:11 Diphenhydramine HCl (Benadryl) 25 mg UNSCH PRN PO for hives/itching/anaphylaxis 02/02/17 22:45 02/12/17 13:20 Epoetin Jesse (Epogen Inj) 10,000 units UNSCH PRN IV PUSH WITH DIALYSIS 02/02/17 22:45 02/12/17 17:46 Abacavir Sulfate (Ziagen) 300 mg BID PO 02/03/17 09:00 02/12/17 21:42 Famotidine (Pepcid) 20 mg HS PO 02/03/17 21:00 02/12/17 21:42 Fosamprenavir Calcium (Lexiva) 700 mg BID PO 02/03/17 09:00 02/13/17 09:22 Lamivudine (Epivir) 150 mg DAILY PO 02/03/17 09:00 02/13/17 09:22 Levetriacetam (Keppra) 750 mg Q12HR PO 02/03/17 09:00 02/13/17 09:22 Ritonavir (Norvir) 100 mg BID PO 02/03/17 09:00 02/12/17 22:17 Oxybenzone/ Padimate O/ Dimethicone (Blistex Lip [place]) 1 applic UNSCH PRN TOPICAL CHAPPED LIPS 02/03/17 00:15 02/03/17 04:40 Diphenhydramine HCl (Benadryl) 25 mg Q4H PRN PO SEE LABEL COMMENTS 02/04/17 06:30 02/09/17 22:44 Calcium Acetate (Phoslo) 1,334 mg TID PO 02/05/17 09:00 02/13/17 09:22 Objective Remarks GENERAL: Young man, sitting up in bed, putting lotion on. SKIN: Warm and dry. HEAD: Normocephalic. EYES: No injection or drainage. NECK: Supple, trachea midline. CARDIOVASCULAR: Regular rate and rhythm RESPIRATORY: Breath sounds equal bilaterally. No accessory muscle use. GASTROINTESTINAL: Abdomen soft, non-tender, nondistended. EXTREMITIES: No cyanosis. bilateral lower leg partial amputations, left arm partial amputation NEUROLOGICAL: awake and alert, normal speech. Assessment/Plan Problem List: (1) Leukocytosis ICD Codes: D72.829 - Elevated white blood cell count, unspecified Status: Chronic Plan: 02/13: Await BCR/ABL and JAK2 mutation. monitor CBC --Leukocytosis with neutrophilia and premature cells. --myeloproliferative disorder versus reactive leukocytosis from infection/ inflammation. --blood cultures negative. --peripheral smear for the pathologist to review pending --JAK2 mutation and BCR/ABL by FISH pending to eval myeloproliferative disorder. --Hemoglobin electrophoresis is consistent with the sickle cell trait And possible Beta thalasemia trait Assessment 26y/o male with h/o HIV and ESRD. Oncology consulted for leukocytosis History of lymphoma. Bilateral amputation of lower legs and left upper extremity. Perma-Cath placement and peritoneal dialysis catheter placement. Attending Statement The exam, history, and the medical decision-making described in the above note were completed with the assistance of the mid-level provider. I reviewed and agree with the findings presented. I attest that I had a [id number] encounter with the patient on the same day, and personally performed and documented my assessment and findings in the medical record. No new complaints Leukocytosis persist. This is most likely reactive Jurgen-2 and BCR/ABL are pending Okay to discharge from my standpoint Follow as an outpatient Problem Qualifiers (1) Leukocytosis: Qualified Codes: D72.829 - Elevated white blood cell count, unspecified Neha Beckham Feb 13, 2017 11:14 Ezekiel Ortiz MD Feb 13, 2017 18:07
[2017-02-13 13:02] VITALS: BP 111/76; PULSE 76; RESP 20; TEMP 98.1; O2SAT 98
[2017-02-13 16:00] VITALS: BP 121/84; PULSE 74; RESP 20; TEMP 98.1; O2SAT 96
--- NOTE | 2017-02-13 16:15 | HHI.FPPN ---
Subjective Remarks Sitting up in chair, no distress. Walking with prosthetics. Reports no problems this morning. Reports normal appetite. Reports no chest pain or shortness of breath. No abdominal pain, nausea, vomiting. Vital signs stable, no fevers overnight. White count remains elevated at 16.3 today. Blood and urine cultures remain negative. He is asking to go home. Objective Vitals Vital Signs Date Time Temp Pulse Resp B/P (MAP) Pulse Ox O2 Delivery O2 Flow Rate FiO2 02/13/17 13:02 98.1 76 20 111/76 (88) 98 02/13/17 08:42 98.8 94 20 107/75 (86) 97 02/13/17 04:56 98.2 85 16 107/57 (74) 100 02/13/17 00:06 97.9 87 16 109/70 (83) 95 02/12/17 20:00 98.4 91 18 98/61 (73) 95 I/O 02/12/17 02/12/17 02/12/17 02/13/17 02/13/17 02/13/17 07:00 15:00 23:00 07:00 15:00 23:00 Output Total 1300 ml Balance -1300 ml Output Urine Total 300 ml Hemodialysis 1000 ml # Bowel Movements 2 Result Diagram: 02/13/17 0552 02/13/17 0552 Objective Remarks CONSTITUTIONAL/GEN: Sitting up in chair, no distress EYES: Conjunctiva without pallor ENT: Lips are dry and peeling, no oral lesions. NECK: Supple, non-tender, without lymphadenopathy. LUNGS: Clear lung tony bilaterally with normal respiratory effort. No wheezes or crackles. CARDIOVASCULAR: RRR without murmur, rub, or gallop. GI/ABD: Soft, non-tender, nondistended without masses, without organomegaly. Peritoneal dialysis catheter site wrapped in bandage without drainage. NEURO: No focal deficits. SKIN: Normal color, dry with flaking and peeling including on his scalp HEME/LYMPH: No bruising, petechia or significant adenopathy MUSC: Bilateral BKAs and left lower arm amputated below elbow. PSYCH/MENTAL STATUS: Alert and oriented x 3. A/P Assessment and Plan 26 YO male w/PMHx HIV, ESRD on dialysis TTS, history of lymphoma, and s/p splenectomy presents with leukocytosis of unknown etiology and pain around the PermCath and peritoneal dialysis catheter sites that initially resolved but patient developed leukocytosis again starting on 02/07 at 11.8 and 16.7 on . Restarted Zyvox and Rocephin on 02/09. WBC scan negative for s/s of infection. Heme was consulted and is investigating DDx of myeloproliferative disorder vs reactive leukocytosis with extra lab tests being performed. Pathology review suggests we consider hemoglobinopathy vs thalassemia. Hemoglobin electrophoresis showing sickle cell trait and thalassemia trait. Discharge Planning Plan for discharge today with follow up with hematology. Will need to follow up Jurgen 2 mutation and BCR/ABL fish studies. Will need to follow up with infectious disease for continuance of HIV treatments. Will need regular follow up with PCP. Problem List: (1) Leukocytosis ICD Codes: D72.829 - Elevated white blood cell count, unspecified Status: Chronic Plan: Heme consulted and following: ddx of myeloproliferative DO vs reactive leukocytosis. Blood cultures and urine cultures remain negative. Chest x-ray negative. Does not appear toxic on exam. Likely leukocytosis is not the result of an infectious process. --JAK2 mutation pending --BCR/ABL mutation pending - Will follow up with hematology, and will need to follow up results on Jak2 and BCR/ABL. (2) Anemia Status: Acute Plan: Hemoglobin low but stable, electrophoresis consistent with sickle cell trait and thalassemia trait. Borderline microcytic. Has zavaleta-jolly bodies on peripheral smear. Received one unit PRBC while in the hospital. (3) Stage 5 chronic kidney disease ICD Codes: N18.5 - Chronic kidney disease, stage 5 Status: Acute Plan: Patient with stage 5 chronic kidney disease, recently started hemodialysis. Currently getting dialysis through [facility], with plans for eventual peritoneal dialysis. On TTS schedule for dialysis. -Continue dialysis as an outpatient - Will follow up closely with nephrology as an outpatient - Will transition to peritoneal dialysis. (4) Human immunodeficiency virus (HIV) positive Status: Chronic Plan: CD4 count 275 on 02/03/17 vs 475 on 08/09/14 - Continue antiretrovirals - Follow closely with infectious disease at discharge (5) Amputated below knee Status: Chronic Plan: - Per PT: Patient does not need physical therapy at home - Continue use of prosthetic devices (6) Amputated below elbow Status: Chronic Plan: -Independent of ADLs at home per patient (7) Dry skin dermatitis ICD Codes: L85.3 - Xerosis cutis Status: Acute Plan: -Pruritic -Discontinued Eucerin and 1% hydrocortisone cream mix at pt request -Will try Aquaphor ointment (8) No contraindication to deep vein thrombosis (DVT) prophylaxis ICD Codes: Z78.9 - Other specified health status Status: Acute Plan: Heparin 5000 units every 8 hours (9) Nutrition, metabolism, and development symptoms ICD Codes: R63.8 - Other symptoms and signs concerning food and fluid intake Status: Acute Plan: Oral fluids Renal diet Monitor electrolytes and replace as needed Dialysis TTS, nephrology on board Problem Qualifiers (1) Leukocytosis: Qualified Codes: D72.829 - Elevated white blood cell count, unspecified (2) Amputated below knee: Qualified Codes: Z89.512 - Acquired absence of left leg below knee; Z89.511 - Acquired absence of right leg below knee (3) Amputated below elbow: Qualified Codes: Z89.212 - Acquired absence of left upper limb below elbow Navarro Simon MD R3 Feb 13, 2017 16:15
[2017-02-13] MEDS ORDERED: CALC667C PO (16:23)
--- NOTE | 2017-02-13 16:24 | HHI.DCPOC ---
Discharge Care Plan Goals to Promote Your Health * To prevent worsening of your condition and complications, please take your medications as prescribed. * To maintain your health at the optimal level, please follow up with the Hematology/Oncology clinic within 1 week. Directions to Meet Your Goals Take your medications as prescribed Follow your dietary instruction Follow activity as directed Keep your appointments as scheduled Take your immunizations and boosters as scheduled If your symptoms worsen call your PCP, if no PCP go to Urgent Care Center or Emergency Room Smoking is Dangerous to Your Health. Avoid second hand smoke Call the 24-hour hour crisis hotline for domestic abuse at Live Lai MD R1 Feb 13, 2017 16:24
--- NOTE | 2017-02-13 17:15 | HHI.NPPN ---
Subjective History of Present Illness 26-year-old male known to me from before with a past medical history of HIV, history of lymphoma and splenectomy, end-stage renal disease on hemodialysis with a PD catheter inserted recently, history of bilateral above-knee amputations and amputation of the left arm. He was admitted because of generalized weakness, nausea, vomiting and pain at the site of the PermCath and abdominal pain. I was called to see the patient for the management of dialysis. The patient has been on hemodialysis Thursday, and Thursday. He had his last dialysis done on Thursday and the patient has a PD catheter in. He is supposed to be getting training for the peritoneal dialysis. Additional Remarks Patient is alert, seen after HD, feeling better, not in distress. Review of Systems General Constitutional: Fatigue Respiratory Lungs: SOB Cardiovascular Cardiac: HERMAN Gastrointestinal Gastrointestinal: Abdominal Pain Objective Data Data Vital Signs Date Time Temp Pulse Resp B/P (MAP) Pulse Ox O2 Delivery O2 Flow Rate FiO2 02/13/17 13:02 98.1 76 20 111/76 (88) 98 02/13/17 08:42 98.8 94 20 107/75 (86) 97 02/13/17 04:56 98.2 85 16 107/57 (74) 100 02/13/17 00:06 97.9 87 16 109/70 (83) 95 02/12/17 20:00 98.4 91 18 98/61 (73) 95 -: 02/13/17 0552 02/13/17 0552 Physical Exam General Appearance: No Acute Distress, Comfortable Eyes Eye Exam: Pupils Equal Throat Throat Exam: Oral Mucosa [place] & Moist Pulmonary Resp Exam: Breath Sounds Equal, No Distress, Decreased Bases Cardiology CV Exam: Regular, Normal Sinus Rhythm Gastrointestinal/Abdomen GI Exam: Soft, Non-Tender, Bowel Sounds Present, Non-Distended (has PD Catheter in place.) Extremeties Extremeties Remarks Bilateral AKA. Neurologic Neuro Exam: Alert, Awake, Oriented Assessment/Plan Assessment Summary: Anemia of CKD, Hypertension, End Stage Renal Disease Problem List: (1) HIV (human immunodeficiency virus infection) ICD Codes: Z21 - Asymptomatic human immunodeficiency virus [HIV] infection status Status: Chronic (2) HTN (hypertension) ICD Codes: I10 - Essential (primary) hypertension Status: Resolved (3) Abdominal pain ICD Codes: R10.9 - Unspecified abdominal pain (4) Leukocytosis ICD Codes: D72.829 - Elevated white blood cell count, unspecified Status: Chronic (5) Generalized pain ICD Codes: R52 - Pain, unspecified Status: Acute (6) Stage 5 chronic kidney disease ICD Codes: N18.5 - Chronic kidney disease, stage 5 Status: Acute (7) Dependent on hemodialysis ICD Codes: Z99.2 - Dependence on renal dialysis Status: Acute Plan Patient remain afebrile. WBC still elevated. Blood cultures remain negative. Abd. pain is better. To start PD once discharged. Seen by Hematology for increase WBC. Now WBC is 17, remain afebrile. HD done, continue same. Problem Qualifiers (1) HTN (hypertension): Qualified Codes: I10 - Essential (primary) hypertension (2) Leukocytosis: Qualified Codes: D72.829 - Elevated white blood cell count, unspecified Levi Solis MD Feb 13, 2017 17:15
--- NOTE | 2017-02-15 21:55 | HHI.DS ---
Discharge Summary Admission Date Feb 02, 2017 at 17:05 Discharge Date: Feb 13, 2017 Admitting Diagnosis leukocytosis, SIRS, ESRD (1) Leukocytosis Diagnosis: Principal Plan: ICD Codes: D72.829 - Elevated white blood cell count, unspecified Status: Chronic (2) Anemia Diagnosis: Principal Status: Acute (3) Stage 5 chronic kidney disease Diagnosis: Principal ICD Codes: N18.5 - Chronic kidney disease, stage 5 Status: Acute (4) Human immunodeficiency virus (HIV) positive Diagnosis: Principal Status: Chronic (5) Amputated below knee Diagnosis: Secondary Status: Chronic (6) Amputated below elbow Diagnosis: Secondary Plan: Status: Chronic (7) Dry skin dermatitis Diagnosis: Secondary ICD Codes: L85.3 - Xerosis cutis Status: Acute (8) No contraindication to deep vein thrombosis (DVT) prophylaxis Diagnosis: Secondary ICD Codes: Z78.9 - Other specified health status Status: Acute (9) Nutrition, metabolism, and development symptoms Diagnosis: Secondary ICD Codes: R63.8 - Other symptoms and signs concerning food and fluid intake Status: Acute Consultants Nephrology Hematology/Oncology Infectious Disease Wound Care Brief History 26 year old male with a history of ESRD, HIV, lymphoma, status post splenectomy. He recently had PermCath and peritoneal dialysis catheters placed for dialysis. He started dialysis on January 23 and receives it every TTS at [facility]. The plan is eventually for peritoneal dialysis. He presents to the ED with pain around his Vascath on his right upper chest and at the site of his peritoneal dialysis catheter. He also has pain in the lower abdomen that is mild and crampy. He has mild pharyngeal pain. His PermCath was placed on January 19. He feels like he moved the wrong way and it started to hurt last night. He's also had coughing for the past couple days. He reports no fevers or night sweats at home. He's had bouts of diarrhea since January 27. He is complaining of some dysuria as well. He has chronic severe pains in his legs. He uses prosthetics due to bilateral amputations when he was 12 done for lymphoma. He has no blurry vision, headaches, neck stiffness, chest pain, shortness of breath. He has significantly dry and peeling skin and cracked and chapped lips that he states is from cefepime from his last admission. 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 Solis. He is taking his antiretrovirals consistently per his report but does not know his most recent CD4 count. CBC/BMP: 02/13/17 0552 02/13/17 0552 Significant Findings Laboratory Tests Test 02/13/17 05:52 White Blood Count 16.3 TH/MM3 (4.0-11.0) Red Blood Count 4.02 MIL/MM3 (4.50-5.90) Hemoglobin 10.8 GM/DL (13.0-17.0) Hematocrit 33.5 % (39.0-51.0) Mean Corpuscular Hemoglobin 26.8 PG (27.0-34.0) Platelet Count 149 TH/MM3 (150-450) Monocytes (%) (Auto) 11.9 % (0.0-8.0) Eosinophils (%) (Auto) 6.2 % (0.0-4.0) Lymphocytes # (Auto) 6.0 TH/MM3 (1.0-4.8) Monocytes # (Auto) 1.9 TH/MM3 (0-0.9) Eosinophils # (Auto) 1.0 TH/MM3 (0-0.4) Neutrophils # (Manual) 8.5 TH/MM3 (1.8-7.7) Nucleated Red Blood Cells 20 /100 WBC (0-0) Polychromasia 2.6 % (0.0-1.9) Target Cells 1+ (NORMAL) Ovalocytes 1+ (NORMAL) Blood Urea Nitrogen 19 MG/DL (7-18) Creatinine 4.84 MG/DL (0.60-1.30) Sodium Level 133 MEQ/L (136-145) Chloride Level 97 MEQ/L (98-107) Estimat Glomerular Filtration Rate 17 ML/MIN (>89) Imaging Last Impressions Tumor Localization 02/06/17 0000 Signed Impressions: Service Date/Time: Tuesday, February 07, 2017 13:48 - CONCLUSION: No acute disease. Chico Real MD Chest X-Ray 02/02/17 0000 Signed Impressions: Service Date/Time: Thursday, February 02, 2017 18:14 - CONCLUSION: 1. Right IJ tunneled dialysis catheter with the tip projecting over the central venous system. 2. Lungs are clear. Bruce Romo MD PE at Discharge CONSTITUTIONAL/GEN: Sitting up in chair, no distress EYES: Conjunctiva without pallor ENT: Lips are dry and peeling, no oral lesions. NECK: Supple, non-tender, without lymphadenopathy. LUNGS: Clear lung tony bilaterally with normal respiratory effort. No wheezes or crackles. CARDIOVASCULAR: RRR without murmur, rub, or gallop. GI/ABD: Soft, non-tender, nondistended without masses, without organomegaly. Peritoneal dialysis catheter site wrapped in bandage without drainage. NEURO: No focal deficits. SKIN: Normal color, dry with flaking and peeling including on his scalp HEME/LYMPH: No bruising, petechia or significant adenopathy MUSC: Bilateral BKAs and left lower arm amputated below elbow. PSYCH/MENTAL STATUS: Alert and oriented x 3. Hospital Course Mr Yu arrived the ED with leukocytosis to 18.4 and met SIRS criteria with tachycardia in low 90s and hypothermia (temp 96.2). Pt has a complex PMHx including ESRD on HD TTS at [facility], HIV, lymphoma and s/p splenectomy. Pt has bilateral BKAs and LUE amputation below the elbow. Other presenting sxs included abdominal pain around the pt's newly placed peritoneal dialysis catheter site, diarrhea, dysuria, cough, and esophageal pain. The pt's skin was peeling on most of his body that the pt indicated was from a Lundy-Chandu syndrome-like reaction from Cefepime on his previous hospitalization in late December. Blood and bacteria in the pt's urine required culture and subsequently did not grow bacteria. The pt was started on Rocephin empirically with addition of Zyvox for concern that the pt might not tolerate Vancomycin. Nephrology dialyzed, managed and corrected the pt's multiple electrolyte abnormalities including hyperkalemia, hyperphosphatemia, hypocalcemia, and hypomagnesemia. After two days, the pt's Hgb dropped to 6.7 and 1u PRBCs were transfused with no further requirement for transfusion. Infectious disease was consulted after several days of leukocytosis that was only being diminished by antibiotics but not reduced to normal limits. Infectious disease assisted with antibiotic management and restarting HIV antiretrovirals. Pt's CD4 count was found to be 275. On 02/06 ID stopped antibiotics to see how the pt's WBC would respond. Within 1 day, WBC dorian again and antibiotics were restarted for two days until a presumptive Dx of reactive leukocytosis vs myeloproliferative disorder was established. ID ordered a WBC scan to search for occult sources of infection and the scan came back negative. Hematology was consulted to address the many abnormalities in his blood labs that could not be explained by an infectious source. Electrophoresis and pathology review indicate the pt has Beta thalassemia trait and sickle cell trait. Tests for JAK2 and ACR/abl mutation are still pending. During the hospital stay, the pt no longer had diarrhea, his abdominal and esophageal pain resolved, but he still has an elevated WBC most likely due to a reactive disorder. He will be followed as an outpatient by Hematology. On discharge, the pt was stable, afebrile with VSS and a benign physical exam. Pt Condition on Discharge: Stable Discharge Disposition: Discharge Home Discharge Instructions DIET: Follow Instructions for: Dialysis Diet Activities you can perform: Weight Bearing as Leatha Follow up Referrals: Infectious Disease - 1 Week Oncology/Hematology - 1 Week with Ezekiel Ortiz MD PCP Follow-up - 1 Week New Medications: Calcium Acetate (Phosphate Bin (Calcium Acetate) 667 Mg Cap 1334 MG PO TID, #120 CAP 0 Refills Continued Medications: Abacavir (Ziagen) 300 Mg Tab 300 MG PO BID for Mgmt Viral Infection, #60 TAB 5 Refills Hazardous agent; use appropriate precautions for handling & disposal. Famotidine (Famotidine) 20 Mg Tab 20 MG PO HS for gerd, #30 TAB Fosamprenavir (Lexiva) 700 Mg Tab 1 TAB PO BID for Infection, #60 TAB 5 Refills Hydrocodone-Acetaminophen (Gaylord) 5-325 mg Tab 1 TAB PO Q6H PRN for PAIN, #10 TAB 0 Refills Lamivudine (Epivir) 150 Mg Tab 150 MG PO DAILY for Mgmt Viral Infection, #9 TAB 5 Refills *Fill this 5 day prescription first and begin taking Epivir 12 hours after the first dose received in the Emergency Department as prescribed.* Levetiracetam (Keppra) 250 Mg Tab 750 MG PO Q12HR for Seizure Control, #60 TAB 3 Refills Ritonavir (Norvir) 100 Mg Cap 100 MG PO BID for Mgmt Viral Infection, #180 CAP 5 Refills Discontinued Medications: Prednisone (Prednisone) 20 Mg Tab 20 MG PO BID for Inflammation, #6 TAB Live Lai MD R1 Feb 15, 2017 21:55
== END 2017-02-13 18:25 | disposition home or self-care (01) | DRG 814 ==
LOC: NEPC 11:57 → NEDA 17:05 → N05B 20:06
PROVIDERS: ADMIT Family Medicine; ATTEND Family Medicine
PROC: 5A1D70Z Performance of Urinary Filtration, Intermittent, Less than 6 Hours Per Day (ICD-10-PCS; principal; 2017-02-03)
PROC: 30233N1 Transfusion of Nonautologous Red Blood Cells into Peripheral Vein, Percutaneous Approach (ICD-10-PCS; 2017-02-04)
DX: D72.829 Elevated white blood cell count, unspecified (principal); N18.6 End stage renal disease; L51.1 Stevens-Johnson syndrome; R65.10 Systemic inflammatory response syndrome (SIRS) of non-infectious origin without acute organ dysfunction; I12.0 Hypertensive chronic kidney disease with stage 5 chronic kidney disease or end stage renal disease; Z94.81 Bone marrow transplant status; E87.5 Hyperkalemia; L89.891 Pressure ulcer of other site, stage 1; D63.1 Anemia in chronic kidney disease; L85.3 Xerosis cutis; T85.848A Pain due to other internal prosthetic devices, implants and grafts, initial encounter; D57.3 Sickle-cell trait; T36.1X5A Adverse effect of cephalosporins and other beta-lactam antibiotics, initial encounter; F12.90 Cannabis use, unspecified, uncomplicated; Z21 Asymptomatic human immunodeficiency virus [HIV] infection status; Z85.72 Personal history of non-Hodgkin lymphomas; Z88.0 Allergy status to penicillin; Z88.1 Allergy status to other antibiotic agents; Z89.212 Acquired absence of left upper limb below elbow; Z89.611 Acquired absence of right leg above knee; Z89.612 Acquired absence of left leg above knee; Z90.81 Acquired absence of spleen; Z99.2 Dependence on renal dialysis
CPT/HCPCS: 36430; 71010; 76937; 78806; 80048; 80053; 81001; 81270; 82948; 83020; 83605; 83735; 84100; 84155; 85007; 85014; 85018; 85027; 85060; 85652; 86140; 86355; 86357; 86359; 86360; 86850; 86900; 86901; 86920; 87040; 87086; 88377; 90935; 96360; 96374; 96375; A9569; J0696; J1580; J1644; J2405; J7030; J7050; P9016; Q4081

== ENCOUNTER 2017-02-17 19:59 | Inpatient (IN) | payer MEDICARE, OTHER ==
[~2017-02-17 19:59] MED LIST changes: +CALC667C PO; -PRED20 PO
[2017-02-17 20:03] VITALS: BP 71/47; PULSE 98; RESP 16; TEMP 98.5; O2SAT 100
[2017-02-17 20:33] VITALS: BP 94/55; PULSE 98; RESP 16; O2SAT 100
[2017-02-17] MEDS ORDERED: ONDANSETRON HCL 4 MG/2 ML VIAL IVP ONE (20:45)
[2017-02-17] MEDS ORDERED: SODIUM CHLORIDE 0.9% FLUSH 10 ML FLUSH IV FLUSH PRN (20:45)
--- NOTE | 2017-02-17 20:55 | PD ---
HPI Chief Complaint: Abdominal Pain Time Seen by Provider: 20:14 Travel History International Travel<30 days: No Contact w/Intl Traveler<30days: No Traveled to known affect area: No History of Present Illness HPI 26-year-old male with significant past medical history presents to the emergency department for evaluation of abdominal pain per his parents that her inserts. Patient has past medical history of ESRD, HIV, lymphoma, status post splenectomy, seizures. He recently had permacat and peritoneal dialysis catheters placed. Right now he is receiving hemodialysis Thursday, , Thursday at [facility]. The plan is eventually to get peritoneal dialysis. He states that today while in dialysis, he started with pain around the insertion point of his personal dialysis catheter. He states it is sharp and intermittent. It is currently 6/10. He denies any radiation of the pain. He reports associated nausea with vomiting times one. No diarrhea or constipation. Patient states he has not had this pain before. He denies any fevers, reports chills. He denies any chest pain or shortness of breath. He states he does make some urine, denies any urinary symptoms. Patient has amputations of the bilateral lower extremities as well as the left arm below the elbow. Patient was just recently discharged from the hospital 2 days ago for leukocytosis, anemia, kidney disease, HIV, sepsis. It appears that they could not find a source of the leukocytosis and underwent multiple tests. It was believed that the leukocytosis was most likely due to a reactive disorder. Severity is moderate. No exacerbating or alleviating factors. PFSH Past Medical History Autoimmune Disease: Yes Blood Disorders: Yes (bone marrow transplant) Anxiety: No Depression: No Cancer: Yes (HX OF LYMPHOMA) Cardiovascular Problems: No Chemotherapy: No Cerebrovascular Accident: No Diminished Hearing: No Endocrine: No Gastrointestinal Disorders: No Genitourinary: Yes Headaches: Yes Immune Disorder: Yes (HIV) Implanted Vascular Access Dvce: Yes Kidney Stones: No Musculoskeletal: No Neurologic: Yes Psychiatric: No Reproductive: No Respiratory: No Migraines: No Radiation Therapy: No Renal Failure: Yes Seizures: Yes Tetanus Vaccination: Unknown Influenza Vaccination: Yes Past Surgical History Abdominal Surgery: Yes (SPLEENECTOMY) AICD: No Arteriovenous Shunt: No Body Medical Devices: prostetics bilateral legs Cardiac Surgery: No Ear Surgery: No Endocrine Surgery: No Eye Surgery: No Genitourinary Surgery: No Gynecologic Surgery: No Insulin Pump: No Joint Replacement: No Neurologic Surgery: No Oral Surgery: No Pacemaker: No Thoracic Surgery: No Other Surgery: Yes (BILATERAL LOWER LEG AND LEFT ARM AMPUTATION) Social History Alcohol Use: Yes (OCC) Tobacco Use: No Substance Use: No Allergies-Medications (Allergen,Severity, Reaction): Coded Allergies: amoxicillin (Verified Allergy, Severe, rash all over, 02/17/17) penicillin G (Verified Allergy, Severe, Anaphylaxis, 02/17/17) Reported Meds & Prescriptions Reported Meds & Active Scripts Active Calcium Acetate (Calcium Acetate (Phosphate Bin) 667 Mg Cap 1,334 Mg PO TID Norvir (Ritonavir) 100 Mg Cap 100 Mg PO BID Epivir (Lamivudine) 150 Mg Tab 150 Mg PO DAILY *Fill this 5 day prescription first and begin taking Epivir 12 hours after the first dose received in the Emergency Department as prescribed.* Lexiva (Fosamprenavir Calcium) 700 Mg Tab 1 Tab PO BID Ziagen (Abacavir Sulfate) 300 Mg Tab 300 Mg PO BID Hazardous agent; use appropriate precautions for handling & disposal. Keppra (Levetiracetam) 250 Mg Tab 750 Mg PO Q12HR [place] (Hydrocodone-Acetaminophen) 5-325 mg Tab 1 Tab PO Q6H PRN Famotidine 20 Mg Tab 20 Mg PO HS Review of Systems Except as stated in HPI: all other systems reviewed are Neg Physical Exam Narrative GENERAL: Chronically ill male patient, afebrile. SKIN: Focused skin assessment warm/dry. Patient has PermCath noted to the right chest. HEAD: Normocephalic. Atraumatic. EYES: No scleral icterus. No injection or drainage. NECK: Supple, trachea midline. No JVD or lymphadenopathy. CARDIOVASCULAR: Regular rate and rhythm without murmurs, gallops, or rubs. RESPIRATORY: Breath sounds equal bilaterally. No accessory muscle use. Lungs sounds are clear to auscultation. GASTROINTESTINAL: Abdomen soft and nondistended. Peritoneal dialysis catheter is noted. There is no erythema or drainage around the insertion site. No significant tenderness to palpation. MUSCULOSKELETAL: No cyanosis, or edema. Patient is status post bilateral BKA's and also amputation below the left elbow. BACK: Nontender without obvious deformity. No CVA tenderness. Data Data Last Documented VS Vital Signs Date Time Temp Pulse Resp B/P (MAP) Pulse Ox O2 Delivery O2 Flow Rate FiO2 02/17/17 21:12 95 Room Air 02/17/17 20:33 98 16 02/17/17 20:03 98.5 Orders Orders Complete Blood Count With Diff (02/17/17 20:40) Comprehensive Metabolic Panel (02/17/17 20:40) Lipase (02/17/17 20:40) Prothrombin Time / Inr (Pt) (02/17/17 20:40) Act Partial Throm Time (Ptt) (02/17/17 20:40) Urinalysis - C+S If Indicated (02/17/17 20:40) Iv Access Insert/Monitor (02/17/17 20:40) Ecg Monitoring (02/17/17 20:40) Oximetry (02/17/17 20:40) Ondansetron Inj (Zofran Inj) (02/17/17 20:45) Sodium Chloride 0.9% Flush (Ns Flush) (02/17/17 20:45) Lactic Acid Sepsis Protocol (02/17/17 20:40) Ct Abd/Pel W/O Iv Contrast (02/17/17 ) Labs Laboratory Tests Test 02/17/17 20:50 02/17/17 20:55 02/17/17 22:12 Lactic Acid Level 2.0 mmol/L White Blood Count 17.0 TH/MM3 Red Blood Count 4.15 MIL/MM3 Hemoglobin 10.6 GM/DL Hematocrit 34.4 % Mean Corpuscular Volume 83.0 FL Mean Corpuscular Hemoglobin 25.5 PG Mean Corpuscular Hemoglobin Concent 30.8 % Red Cell Distribution Width 20.0 % Platelet Count 253 TH/MM3 Mean Platelet Volume 10.2 FL Neutrophils (%) (Auto) 57.8 % Lymphocytes (%) (Auto) 23.1 % Monocytes (%) (Auto) 13.3 % Eosinophils (%) (Auto) 5.2 % Basophils (%) (Auto) 0.6 % Neutrophils # (Auto) 9.9 TH/MM3 Lymphocytes # (Auto) 3.9 TH/MM3 Monocytes # (Auto) 2.3 TH/MM3 Eosinophils # (Auto) 0.9 TH/MM3 Basophils # (Auto) 0.1 TH/MM3 CBC Comment AUTO DIFF Differential Total Cells Counted 100 Neutrophils % (Manual) 65 % Lymphocytes % 15 % Monocytes % 13 % Eosinophils % 7 % Neutrophils # (Manual) 11.1 TH/MM3 Nucleated Red Blood Cells 3 /100 WBC Differential Comment FINAL DIFF MANUAL Platelet Estimate NORMAL Platelet Morphology Comment NORMAL Target Cells 2+ Ovalocytes 2+ Acanthocytes 1+ Prothrombin Time 10.2 SEC Prothromb Time International Ratio 0.9 RATIO Activated Partial Thromboplast Time 24.3 SEC MDM Medical Decision Making Medical Screen Exam Complete: Yes Emergency Medical Condition: Yes Medical Record Reviewed: Yes Differential Diagnosis Peritoneal dialysis catheter issue versus pancreatitis versus diverticulitis versus UTI versus pyelonephritis versus electrolyte abnormality versus gastroenteritis Narrative Course 26-year-old male presents to the emergency department for evaluation of sharp mid abdominal pain around the peritoneal dialysis catheter insertion site as started today while in dialysis. IV is established. CBC, CMP, lipase, PTT, PT/ INR, UA, lactic acid are ordered and pending. CT abdomen/pelvis without contrast is ordered and pending. Patient is given Zofran 4 mg IV. CBC shows leukocytosis of 17.0, stable from previous visit. Lactic acid is 2.0. Coags are unremarkable. CT abdomen/pelvis shows distended stomach; multiple calcified gallstones.] CMP, lipase, UA are pending. Dr. Jimenez will review labs and disposition patient. Essence Clemons Feb 17, 2017 20:55
[2017-02-17 21:12] VITALS: O2SAT 95
[2017-02-17 21:17] LABS: AUTOMATED NEUTROPHIL # 9.9 TH/MM3 (1.8-7.7); BASOPHIL # 0.1 TH/MM3 (0-0.2); BASOPHIL % 0.6 % (0.0-2.0); EOSINOPHIL # 0.9 TH/MM3 (0-0.4); EOSINOPHIL % 5.2 % (0.0-4.0); HEMATOCRIT 34.4 % (39.0-51.0); LYMPH % 23.1 % (9.0-44.0); LYMPHOCYTE # 3.9 TH/MM3 (1.0-4.8); MEAN CORPUSCULAR HEMOGLOBIN 25.5 PG (27.0-34.0); MEAN CORPUSCULAR HGB CONC 30.8 % (32.0-36.0); MONO % 13.3 % (0.0-8.0); NEUT % 57.8 % (16.0-70.0); PLATELET COUNT 253 TH/MM3 (150-450); RED BLOOD COUNT 4.15 MIL/MM3 (4.50-5.90)
[2017-02-17 21:21] LABS: HEMO FLAGS AUTO DIFF
[2017-02-17 21:27] LABS: APTT (PATIENT) 24.3 SEC (24.3-30.1); INTERNATIONAL NORMALIZED RATIO 0.9 RATIO; PROTHROMBIN TIME - PATIENT 10.2 SEC (9.8-11.6)
[2017-02-17 22:02] LABS: CORRECTED NUCLEATED RBC 3 /100 WBC (0-0); EOSINOPHILS 7 % (0-4); NEUTROPHIL # MANUAL DIFF 11.1 TH/MM3 (1.8-7.7); POLYS (SEG NEUTROPHILS) 65 % (16-70); WBC DIFF SAMPLE 100
[2017-02-17 22:03] LABS: ACANTHOCYTES 1+ (NORMAL); OVALOCYTES 2+ (NORMAL); PLATELET ESTIMATE SMEAR NORMAL (NORMAL); PLATELET MORPHOLOGY NORMAL (NORMAL); SCAN/DIFF FINAL DIFF MANUAL; TARGET CELLS 2+ (NORMAL)
--- NOTE | 2017-02-17 22:35 | RADRPT ---
EXAM DATE/TIME: 02/17/2017 21:26 [place] COMPARISON: CT ABDOMEN & PELVIS W/O CONTRAST, January 16, 2017, 21:31. INDICATIONS : Abdomen pain. ORAL CONTRAST: No oral contrast ingested. RADIATION DOSE: 6.53 CTDIvol (mGy) MEDICAL HISTORY : Lymphoma. HIV. Renal failure, acute.Dialysis SURGICAL HISTORY : None. Bilateral leg amutation and left arm. ENCOUNTER: Initial ACUITY: 1 day PAIN SCALE: 5/10 LOCATION: Bilateral abdomen TECHNIQUE: Volumetric scanning of the abdomen and pelvis was performed. Using automated exposure control and ad justment of the mA and/or kV according to patient size, radiation dose was kept as low as reasonably achievable to obtain optimal diagnostic quality images. DICOM format image data is available electro nically for review and comparison. FINDINGS: The examination is performed without intravenous and without oral contrast. There are multiple calci fied gallstones which are similar appearance to prior examination on 01/16/17. No dilation of the in tra-articular hepatic biliary system. Nonrotation of the kidneys without evidence hydronephrosis or calcified stones. The adrenal glands, pancreas, and spleen are grossly unremarkable. There is distention of the stomach containing both fluid and mixture of gas. No dilated loops of sma ll or large bowel. CAPD catheter is coiled in the pelvis. No fluid in the dependent pelvis. Urinar y bladder margins are smooth. The visualized lower lungs are clear. Wide windows for bony detail de monstrate the osseous structures to be intact. CONCLUSION: 1. Distended stomach. 2. Multiple calcified gallstones. Colton Sun MD on February 17, 2017 at 22:30 Board Certified Radiologist. This report was verified electronically.
[2017-02-17 22:46] LABS: ANION GAP 6 MEQ/L (5-15); AST (GOT) 34 U/L (15-37); BICARBONATE 29.7 MEQ/L (21.0-32.0); BLOOD UREA NITROGEN 16 MG/DL (7-18); CHLORIDE 103 MEQ/L (98-107); POTASSIUM 4.8 MEQ/L (3.5-5.1); SODIUM (NA) 139 MEQ/L (136-145)
[2017-02-17 22:47] LABS: ALT (GPT) 31 U/L (12-78)
[2017-02-17 22:49] LABS: ALKALINE PHOSPHATASE 134 U/L (45-117); TOTAL BILIRUBIN ADULT 0.2 MG/DL (0.2-1.0)
[2017-02-17 23:11] VITALS: BP 100/59; PULSE 85; RESP 16; O2SAT 97
--- NOTE | 2017-02-18 00:19 | PD ---
Physical Exam Narrative General: The patient is a well-developed thin appearing male, in no acute distress. Head and Neck exam: Head is normocephalic atraumatic. Eyes: EOMI, pupils are equal round and reactive to light. Nose: Midline septum with pink mucous membranes Mouth: Dentition unremarkable. Moist mucus membranes. Posterior oropharynx is not erythematous. No tonsillar hypertrophy. Uvula midline. Airway patent. Neck: No palpable lymphadenopathy. No nuchal rigidity. No thyromegaly. Cardiovascular: Regular rate and rhythm without murmurs, gallops, or rubs. Lungs: Clear to auscultation bilaterally. No wheezes, rhonchi, or rales. Abdomen: Soft, with reported tenderness on palpation along the midepigastric area and area just around his peritoneal dialysis catheter site. There is no surrounding erythema. The patient's wound dressing is noted to be dirty. This will be replaced. No guarding, rebound, or rigidity. Normal bowel sounds are audible. No tenderness on palpation of McBurney's point. . Neurologic Exam: Grossly nonfocal. Skin Exam: No rash noted. Intact skin that is warm and dry. Data Data Last Documented VS Vital Signs Date Time Temp Pulse Resp B/P (MAP) Pulse Ox O2 Delivery O2 Flow Rate FiO2 02/17/17 23:11 85 16 100/59 (73) 97 Room Air 02/17/17 20:03 98.5 Orders Orders Complete Blood Count With Diff (02/17/17 20:40) Comprehensive Metabolic Panel (02/17/17 20:40) Lipase (02/17/17 20:40) Prothrombin Time / Inr (Pt) (02/17/17 20:40) Act Partial Throm Time (Ptt) (02/17/17 20:40) Urinalysis - C+S If Indicated (02/17/17 20:40) Iv Access Insert/Monitor (02/17/17 20:40) Ecg Monitoring (02/17/17 20:40) Oximetry (02/17/17 20:40) Ondansetron Inj (Zofran Inj) (02/17/17 20:45) Sodium Chloride 0.9% Flush (Ns Flush) (02/17/17 20:45) Lactic Acid Sepsis Protocol (02/17/17 20:40) Ct Abd/Pel W/O Iv Contrast (02/17/17 ) Wound Care (02/17/17 22:59) Admit Order (Ed Use Only) (02/18/17 01:19) Labs Laboratory Tests Test 02/17/17 20:50 02/17/17 20:55 02/17/17 22:12 Lactic Acid Level 2.0 mmol/L White Blood Count 17.0 TH/MM3 Red Blood Count 4.15 MIL/MM3 Hemoglobin 10.6 GM/DL Hematocrit 34.4 % Mean Corpuscular Volume 83.0 FL Mean Corpuscular Hemoglobin 25.5 PG Mean Corpuscular Hemoglobin Concent 30.8 % Red Cell Distribution Width 20.0 % Platelet Count 253 TH/MM3 Mean Platelet Volume 10.2 FL Neutrophils (%) (Auto) 57.8 % Lymphocytes (%) (Auto) 23.1 % Monocytes (%) (Auto) 13.3 % Eosinophils (%) (Auto) 5.2 % Basophils (%) (Auto) 0.6 % Neutrophils # (Auto) 9.9 TH/MM3 Lymphocytes # (Auto) 3.9 TH/MM3 Monocytes # (Auto) 2.3 TH/MM3 Eosinophils # (Auto) 0.9 TH/MM3 Basophils # (Auto) 0.1 TH/MM3 CBC Comment AUTO DIFF Differential Total Cells Counted 100 Neutrophils % (Manual) 65 % Lymphocytes % 15 % Monocytes % 13 % Eosinophils % 7 % Neutrophils # (Manual) 11.1 TH/MM3 Nucleated Red Blood Cells 3 /100 WBC Differential Comment FINAL DIFF MANUAL Platelet Estimate NORMAL Platelet Morphology Comment NORMAL Target Cells 2+ Ovalocytes 2+ Acanthocytes 1+ Prothrombin Time 10.2 SEC Prothromb Time International Ratio 0.9 RATIO Activated Partial Thromboplast Time 24.3 SEC Blood Urea Nitrogen 16 MG/DL Creatinine 3.47 MG/DL Random Glucose 87 MG/DL Total Protein 8.2 GM/DL Albumin 3.1 GM/DL Calcium Level 7.8 MG/DL Alkaline Phosphatase 134 U/L Aspartate Amino Transf (AST/SGOT) 34 U/L Alanine Aminotransferase (ALT/SGPT) 31 U/L Total Bilirubin 0.2 MG/DL Sodium Level 139 MEQ/L Potassium Level 4.8 MEQ/L Chloride Level 103 MEQ/L Carbon Dioxide Level 29.7 MEQ/L Anion Gap 6 MEQ/L Lipase 2179 U/L [facility] Medical Record Reviewed: Yes Supervised Visit with BREANNA: Yes Interpretation(s) Last Impressions Abdomen/Pelvis CT 02/17/17 0000 Signed Impressions: Service Date/Time: Friday, February 17, 2017 21:26 - CONCLUSION: 1. Distended stomach. 2. Multiple calcified gallstones. Colton Sun MD Narrative Course I, Dr. Jimenez, have reviewed the advance practice practitioner's documentation and am in agreement, met with the patient face to face, made the diagnosis, and the medical decision making was done by me. The patient was initially evaluated by Essence. Please see their complete history and physical. *My assessment and Findings: The patient presents with onset of abdominal pain in the midepigastric area and around his peritoneal dialysis catheter that was recently placed it began while he was in hemodialysis earlier today. He did have one episode of vomiting related to the pain prior to arrival. He denies having any nausea currently. He denies having any diarrhea. He reports that he last moved his bowels earlier today. The patient reports that he was recently discharged from the hospital on Thursday. The patient reports that home health has not come out to his house yet. During the course of the patients emergency department visit, the patients history, examination, and differential diagnosis were reviewed with the patient. The patient was placed on a first assist with oximetry and frequent blood pressure monitoring. The patient had IV access obtained and blood work sent for analysis. The patient was initially provided normal saline IV fluids at maintenance rate. The patient was given morphine for pain, Zofran for nausea. The patients laboratory studies were reviewed and remarkable for a white count of 17, hemoglobin 10.6, platelets 253 with 13.3 monocytes, CMP is remarkable for creatinine of 3.47, calcium 7.8, alkaline phosphatase 134, albumin 3.1, lipase 2179, lactic acid 2.0, PT 10.2, PTT 24.3 Radiology studies were reviewed and remarkable for a CT scan of the abdomen and pelvis shows a distended stomach, multiple calcified gallstones. The patients results were discussed with the patient, including the plan of care. I explained that further testing and/ or monitoring is indicated based on the patients history, examination, and/ or laboratory findings. Therefore, I recommended admission for additional evaluation. The patient expressed understanding and was agreeable with this plan. The patient was admitted to the hospital in guarded condition and [facility] Phys[facility] Communication Physician Communication The patient's case including history, pertinent physical examination findings, and laboratory studies were discussed with the family practice residents as the patient was recently discharged from their service, however according to them the patient was d/c beyond their period of time to be considered a bounce back. They recommended that I speak to the [facility] service. I spoke to Dr. Rivera regarding this patient's case. She did agree to admit the patient for further evaluation and treatment at this time. Diagnosis Primary Impression: Acute pancreatitis Qualified Codes: K85.90 - Acute pancreatitis without necrosis or infection, unspecified Admitting Information Admitting Physician Requests: Admit Charmaine Jimenez MD Feb 18, 2017 00:19
[2017-02-18] MEDS ORDERED: MORPHINE SULFATE 2 MG/ML INJ IV PUSH ONE (01:45)
[2017-02-18] MEDS ORDERED: SODIUM CHLOR 0.9% 1000 ML INJ 1,000 ML IV SCH ×2 (01:45→03:00)
[2017-02-18] MEDS ORDERED: SENNOSIDES 8.6 MG TAB PO PRN (02:45)
[2017-02-18] MEDS ORDERED: ACETAMINOPHEN 325 MG TAB PO PRN (02:45)
[2017-02-18] MEDS ORDERED: MAGNESIUM HYDROXIDE SUSP 30 ML CUP PO PRN (02:45)
[2017-02-18] MEDS ORDERED: LACTULOSE SYRUP 20 GM/30 ML CUP PO PRN (02:45)
[2017-02-18] MEDS ORDERED: ONDANSETRON HCL 4 MG/2 ML VIAL IVP PRN (02:45)
[2017-02-18] MEDS ORDERED: NALOXONE HCL 0.4 MG/ML AMP IV PUSH PRN (02:45)
[2017-02-18] MEDS ORDERED: SODIUM CHLORIDE 0.9% FLUSH 10 ML FLUSH IV FLUSH PRN (02:45)
[2017-02-18] MEDS ORDERED: BISACODYL 10 MG SUPP RECTAL PRN (02:45)
--- NOTE | 2017-02-18 03:00 | HHI.HP ---
HPI Service [facility] Hospitalists Primary Care Physician No Primary Care Physician Admission Diagnosis Acute pancreatitis Diagnoses: Travel History International Travel<30 Days: No Contact w/Intl Traveler <30 Da: No Traveled to Known Affected Are: No History of Present Illness 26-year-old male with a past medical history significant for ESRD on hemodialysis, HIV, lymphoma and seizures presents to the emergency department for evaluation of abdominal pain. The patient states his abdominal pain started while he was in dialysis today. He denies any radiation of the pain. He states it is worse around the insertion site of his peritoneal dialysis catheter. He has associated nausea, no emesis or diarrhea. Peritoneal dialysis catheter site without erythema or drainage. No significant tenderness to palpation. CT of the abdomen and pelvis significant for distended stomach with calcified gallstones. Lab values significant for a lipase of 2179. The patient has a persistent leukocytosis without a left shift that is at baseline from 02/13/17. Patient is demanding something to drink at this time. The patient was discharged from [facility] on 02/13/17 where he was evaluated for persistent leukocytosis. His leukocytosis was determined to be noninfectious in nature and he was instructed to follow-up with hematology as an outpatient. Review of Systems Denies fever or chills Denies blurry vision, otorrhea, rhinorrhea Denies sore throat and cough No chest pain, palpitations, shortness of breath Positive abdominal pain Denies constipation/diarrhea/vomiting. Positive nausea Denies muscle pain/weakness No rashes Past Family Social History Past Medical History End-stage renal disease - on HD TFSu, with plan to start peritoneal dialysis. PD catheter placed approximately 3 weeks ago. History of lymphoma Bilateral amputations of the lower extremities Left upper extremity amputation HIV, last CD4 cell count 275 on 02/03/17 Seizure disorder Past Surgical History Bilateral lower and left upper extremity amputations at age 12 Splenectomy Reported Medications Reported Meds & Active Scripts Active Calcium Acetate (Calcium Acetate (Phosphate Bin) 667 Mg Cap 1,334 Mg PO TID Norvir (Ritonavir) 100 Mg Cap 100 Mg PO BID Epivir (Lamivudine) 150 Mg Tab 150 Mg PO DAILY *Fill this 5 day prescription first and begin taking Epivir 12 hours after the first dose received in the Emergency Department as prescribed.* Lexiva (Fosamprenavir Calcium) 700 Mg Tab 1 Tab PO BID Ziagen (Abacavir Sulfate) 300 Mg Tab 300 Mg PO BID Hazardous agent; use appropriate precautions for handling & disposal. Keppra (Levetiracetam) 250 Mg Tab 750 Mg PO Q12HR [place] (Hydrocodone-Acetaminophen) 5-325 mg Tab 1 Tab PO Q6H PRN Famotidine 20 Mg Tab 20 Mg PO HS Allergies: Coded Allergies: amoxicillin (Verified Allergy, Severe, rash all over, 02/17/17) penicillin G (Verified Allergy, Severe, Anaphylaxis, 02/17/17) Family History Denies family history of heart disease or diabetes mellitus. Social History Denies tobacco, alcohol and illicit drugs. Physical Exam Vital Signs Vital Signs Date Time Temp Pulse Resp B/P (MAP) Pulse Ox O2 Delivery O2 Flow Rate FiO2 02/17/17 23:11 85 16 100/59 (73) 97 Room Air 02/17/17 21:12 95 Room Air 02/17/17 20:33 98 16 94/55 (68) 100 Room Air 02/17/17 20:03 98.5 98 16 71/47 (55) 100 Physical Exam GENERAL: Thin, Samra male lying in bed SKIN: No rashes, ecchymoses or lesions. Cool and dry. HEAD: Atraumatic. Normocephalic. No temporal or scalp tenderness. EYES: Pupils equal round and reactive. Extraocular motions intact. No scleral icterus. No injection or drainage. ENT: Nose without bleeding, purulent drainage or septal hematoma. Throat without erythema, tonsillar hypertrophy or exudate. Uvula midline. Airway patent. NECK: Trachea midline. No JVD or lymphadenopathy. Supple, nontender, no meningeal signs. CARDIOVASCULAR: Regular rate and rhythm without murmurs, gallops, or rubs. RESPIRATORY: Clear to auscultation. Breath sounds equal bilaterally. No wheezes , rales, or rhonchi. GASTROINTESTINAL: Abdomen soft, nondistended. Diffusely tender to palpation. No guarding. Peritoneal dialysis catheter in place without surrounding erythema or drainage. MUSCULOSKELETAL: Bilateral lower extremity amputations. Left upper extremity amputation. NEUROLOGICAL: Awake and alert. Cranial nerves II through XII intact. Motor and sensory grossly within normal limits. Five out of 5 muscle strength in all muscle groups. Normal speech. Laboratory Laboratory Tests Test 02/17/17 20:50 02/17/17 20:55 02/17/17 22:12 Lactic Acid Level 2.0 White Blood Count 17.0 Red Blood Count 4.15 Hemoglobin 10.6 Hematocrit 34.4 Mean Corpuscular Volume 83.0 Mean Corpuscular Hemoglobin 25.5 Mean Corpuscular Hemoglobin Concent 30.8 Red Cell Distribution Width 20.0 Platelet Count 253 Mean Platelet Volume 10.2 Neutrophils (%) (Auto) 57.8 Lymphocytes (%) (Auto) 23.1 Monocytes (%) (Auto) 13.3 Eosinophils (%) (Auto) 5.2 Basophils (%) (Auto) 0.6 Neutrophils # (Auto) 9.9 Lymphocytes # (Auto) 3.9 Monocytes # (Auto) 2.3 Eosinophils # (Auto) 0.9 Basophils # (Auto) 0.1 CBC Comment AUTO DIFF Differential Total Cells Counted 100 Neutrophils % (Manual) 65 Lymphocytes % 15 Monocytes % 13 Eosinophils % 7 Neutrophils # (Manual) 11.1 Nucleated Red Blood Cells 3 Differential Comment FINAL DIFF MANUAL Platelet Estimate NORMAL Platelet Morphology Comment NORMAL Target Cells 2+ Ovalocytes 2+ Acanthocytes 1+ Prothrombin Time 10.2 Prothromb Time International Ratio 0.9 Activated Partial Thromboplast Time 24.3 Blood Urea Nitrogen 16 Creatinine 3.47 Random Glucose 87 Total Protein 8.2 Albumin 3.1 Calcium Level 7.8 Alkaline Phosphatase 134 Aspartate Amino Transf (AST/SGOT) 34 Alanine Aminotransferase (ALT/SGPT) 31 Total Bilirubin 0.2 Sodium Level 139 Potassium Level 4.8 Chloride Level 103 Carbon Dioxide Level 29.7 Anion Gap 6 Lipase 2179 Result Diagram: 02/17/17205402/17/172211 Caprini VTE Risk Assessment Caprini VTE Risk Assessment: No/Low Risk (score <= 1) Caprini Risk Assessment Model Point Value = 1 Point Value = 2 Point Value = 3 Point Value = 5 Age 41-60 Minor surgery BMI > 25 kg/m2 Swollen legs Varicose veins or History of unexplained or recurrent spontaneous Oral contraceptives or hormone replacement Sepsis (< 1 month) Serious lung disease, including pneumonia (< 1 month) Abnormal pulmonary function Acute myocardial infarction Congestive heart failure (< 1 month) History of inflammatory bowel disease Medical patient at bed rest Age 61-74 Arthroscopic surgery Major open surgery (> 45 min) Laparoscopic surgery (> 45 min) Malignancy Confined to bed (> 72 hours) Immobilizing plaster cast Central venous access Age >= 75 History of VTE Family history of VTE Factor V Leiden Prothrombin [id number] Lupus anticoagulant Anticardiolipin antibodies Elevated serum homocysteine Heparin-induced thrombocytopenia Other congenital or acquired thrombophilia Stroke (< 1 month) Elective arthroplasty Hip, pelvis, or leg fracture Acute spinal cord injury (< 1 month) Prophylaxis Regimen Total Risk Factor Score Risk Level Prophylaxis Regimen 0-1 Low Early ambulation 2 Moderate Order ONE of the following: *Sequential Compression Device (SCD) *Heparin 5000 units SQ BID 3-4 Higher Order ONE of the following medications: *Heparin 5000 units SQ TID *Enoxaparin/Lovenox 40 mg SQ daily (WT < 150 kg, CrCl > 30 mL/min) *Enoxaparin/Lovenox 30 mg SQ daily (WT < 150 kg, CrCl > 10-29 mL/min) *Enoxaparin/Lovenox 30 mg SQ BID (WT < 150 kg, CrCl > 30 mL/min) AND/OR *Sequential Compression Device (SCD) 5 or more Highest Order ONE of the following medications: *Heparin 5000 units SQ TID (Preferred with Epidurals) *Enoxaparin/Lovenox 40 mg SQ daily (WT < 150 kg, CrCl > 30 mL/min) *Enoxaparin/Lovenox 30 mg SQ daily (WT < 150 kg, CrCl > 10-29 mL/min) *Enoxaparin/Lovenox 30 mg SQ BID (WT < 150 kg, CrCl > 30 mL/min) AND *Sequential Compression Device (SCD) Assessment and Plan Assessment and Plan 26-year-old male with a past medical history significant for end-stage renal disease on HD, HIV, seizure disorder and history of lymphoma presents with abdominal pain and acute pancreatitis. 1. Acute pancreatitis NPO Gentle IV fluid hydration as patient on HD No signs of necrosis on CT abd/pelvis 2. ESRD on HD Dialysis schedule Thursday, Thursday, Thursday Patient completed HD today Nephrology consulted, appreciate recommendations Per patient his editor managing director is Dr. Branch 3. Persistent leukocytosis Patient discharged from hospital on 02/13/17 where he was worked up for his persistent leukocytosis Per hematology notes, leukocytosis is likely reactive Jurgen-2 mutation not detected BCR/ABL pending Patient to follow-up with hematology as an outpatient 4. HIV Last CD4 count 275 Continue home antiretrovirals 5. Seizure disorder Continue Keppra FEN NPO NS at 75 cc/hr Electrolytes: monitor Heparin Case discussed with ER physician at length Physician Certification 2 Midnight Certification Type: Admission for Inpatient Services Order for Inpatient Services The services are ordered in accordance with Medicare regulations or non- Medicare payer requirements, as applicable. In the case of services not specified as inpatient-only, they are appropriately provided as inpatient services in accordance with the 2-midnight benchmark. Estimated LOS (days): 2 2 days is the estimated time the patient will need to remain in the hospital, assuming treatment plan goals are met and no additional complications. Post-Hospital Plan: Not yet determined Kasie Rivera MD Feb 18, 2017 03:00
[2017-02-18 04:00] VITALS: BP 103/63; PULSE 84; RESP 17; TEMP 97.3; O2SAT 100
[2017-02-18 06:07] LABS: AUTOMATED NEUTROPHIL # 5.5 TH/MM3 (1.8-7.7); BASOPHIL # 0.2 TH/MM3 (0-0.2); BASOPHIL % 1.1 % (0.0-2.0); EOSINOPHIL % 7.2 % (0.0-4.0); HEMATOCRIT 31.3 % (39.0-51.0); LYMPH % 39.4 % (9.0-44.0); LYMPHOCYTE # 5.6 TH/MM3 (1.0-4.8); MEAN CELL VOLUME 84.1 FL (80.0-100.0); MEAN CORPUSCULAR HEMOGLOBIN 25.7 PG (27.0-34.0); MEAN CORPUSCULAR HGB CONC 30.6 % (32.0-36.0); MONO % 13.7 % (0.0-8.0); NEUT % 38.6 % (16.0-70.0); PLATELET COUNT 252 TH/MM3 (150-450); RED BLOOD COUNT 3.72 MIL/MM3 (4.50-5.90); RED CELL DISTRIBUTION WIDTH 19.8 % (11.6-17.2); WHITE BLOOD COUNT 14.2 TH/MM3 (4.0-11.0)
[2017-02-18 06:19] LABS: HEMO FLAGS AUTO DIFF
[2017-02-18 06:34] LABS: BICARBONATE 23.4 MEQ/L (21.0-32.0); POTASSIUM 4.6 MEQ/L (3.5-5.1)
[2017-02-18 08:00] VITALS: BP 113/74; PULSE 77; RESP 16; TEMP 97; O2SAT 100
[2017-02-18] MEDS: HEPARIN SODIUM - SQ 10,000 UNITS/ML VIAL SQ SCH ×3 (08:29→20:13)
[2017-02-18] MEDS: DOCUSATE SODIUM 50 MG/SENNA 8.6 MG TAB PO SCH ×2 (08:29→20:13)
[2017-02-18] MEDS: levETIRAcetam 250 MG TAB PO SCH ×2 (08:30→20:12)
[2017-02-18] MEDS: CALCIUM ACETATE 667 MG CAP PO SCH ×3 (08:30→17:36)
[2017-02-18] MEDS: RITONAVIR 100 MG TAB PO SCH ×2 (08:30→20:20)
[2017-02-18] MEDS: ABACAVIR SULFATE 300 MG TAB PO SCH ×2 (08:30→20:12)
[2017-02-18] MEDS: FOSAMPRENAVIR CALCIUM PO SCH ×2 (08:30→20:12)
[2017-02-18] MEDS: SODIUM CHLORIDE 0.9% FLUSH 10 ML FLUSH IV FLUSH SCH ×2 (08:31→20:15)
[2017-02-18 08:44] LABS: HOWELL-JOLLY BODIES PRESENT (NONE SEEN)
[2017-02-18 08:46] LABS: CORRECTED NUCLEATED RBC 1 /100 WBC (0-0); EOSINOPHILS 12 % (0-4); NEUTROPHIL # MANUAL DIFF 4.7 TH/MM3 (1.8-7.7); POLYS (SEG NEUTROPHILS) 33 % (16-70); TARGET CELLS 1+ (NORMAL); WBC DIFF SAMPLE 100
[2017-02-18 08:47] LABS: ACANTHOCYTES OCC (NORMAL); OVALOCYTES 1+ (NORMAL); PLATELET ESTIMATE SMEAR NORMAL (NORMAL); PLATELET MORPHOLOGY ENLARGED (NORMAL)
[2017-02-18 08:48] LABS: SCAN/DIFF FINAL DIFF MANUAL
[2017-02-18 12:00] VITALS: BP 116/70; PULSE 79; RESP 17; TEMP 96.8; O2SAT 99
--- NOTE | 2017-02-18 12:52 | HHI.PR ---
Subjective Remarks Patient reports he does not have any abdominal pain. No nausea or vomiting. He wants to eat. Objective Vitals Vital Signs Date Time Temp Pulse Resp B/P (MAP) Pulse Ox O2 Delivery O2 Flow Rate FiO2 02/18/17 12:00 96.8 79 17 116/70 (85) 99 02/18/17 08:00 97.0 77 16 113/74 (87) 100 02/18/17 04:00 97.3 84 17 103/63 (76) 100 02/18/17 03:45 02/17/17 23:11 85 16 100/59 (73) 97 Room Air 02/17/17 21:12 95 Room Air 02/17/17 20:33 98 16 94/55 (68) 100 Room Air 02/17/17 20:03 98.5 98 16 71/47 (55) 100 I/O 02/17/17 02/17/17 02/17/17 02/18/17 02/18/17 02/18/17 07:00 15:00 23:00 07:00 15:00 23:00 Intake Total 240 ml Balance 240 ml Intake Oral 240 ml # Voids 1 Result Diagram: 02/18/17 0557 02/18/17 0557 Imaging Last Impressions Abdomen/Pelvis CT 02/17/17 0000 Signed Impressions: Service Date/Time: Friday, February 17, 2017 21:26 - CONCLUSION: 1. Distended stomach. 2. Multiple calcified gallstones. Colton Sun MD Objective Remarks GENERAL: This is a well-nourished, well-developed patient, in no apparent distress. CARDIOVASCULAR: Normal rate and regular rhythm without murmurs, gallops, or rubs. RESPIRATORY: Good respiratory efforts. Breath sounds equal and clear to auscultation bilaterally. GASTROINTESTINAL: Abdomen soft, non-tender, non-distended. Normal active bowel sounds MUSCULOSKELETAL: Status post bilateral lower extremity amputations NEURO: Alert & Oriented x4 to person, place, time, situation. Moves all ext x4 PSYCH: Appropriate mood and affect. A/P Assessment and Plan 26-year-old male with a past medical history significant for end-stage renal disease on HD, HIV, seizure disorder and history of lymphoma presents with abdominal pain and acute pancreatitis. 1. Acute pancreatitis Symptoms quickly resolved. Moderate of past the stone. He has gallstones on CT but no obstructions. Liver enzymes unremarkable. - Advance to low-fat diet - Monitor progress 2. ESRD on HD Dialysis schedule Thursday, Thursday, Thursday Patient completed HD today Nephrology consulted, appreciate recommendations 3. Persistent leukocytosis Patient discharged from hospital on 02/13/17 where he was worked up for his persistent leukocytosis Per hematology notes, leukocytosis is likely reactive Jurgen-2 mutation not detected BCR/ABL pending Patient to follow-up with hematology as an outpatient 4. HIV Last CD4 count 275 Continue home antiretrovirals 5. Seizure disorder Continue Keppra Discharge Planning Most likely discharge in a.m. if he continues to improve. Micheline Anthony MD Feb 18, 2017 12:52
[2017-02-18 16:00] VITALS: BP 119/75; PULSE 82; RESP 18; TEMP 97.8; O2SAT 100
[2017-02-18] MEDS: diphenhydrAMINE HCL 25 MG CAP PO PRN (17:53)
[2017-02-18 20:30] VITALS: BP 100/60; PULSE 96; RESP 18; TEMP 97.7; O2SAT 98
[2017-02-18 20:31] VITALS: BP 131/79; PULSE 101; RESP 20; TEMP 100.1; O2SAT 98
[2017-02-18] MEDS ORDERED: FAMOTIDINE 20 MG TAB PO SCH (21:00)
--- NOTE | 2017-02-18 22:42 | MB ---
cc: DIONTE ABERNATHY MD DATE OF CONSULTATION 02/18/17 REASON FOR CONSULTATION End-stage renal disease on hemodialysis for management. HISTORY OF PRESENT ILLNESS This is a 26-year-old male known to me from before with past medical history of HIV, history of lymphoma, seizure disorder, chronic anemia, end-stage renal disease on hemodialysis, to start peritoneal dialysis, came to the hospital with complaint of abdominal pain. I was called to see the patient for management of dialysis. He has been on hemodialysis Thursday, and Thursday and he was dialyzed yesterday and he was supposed to get dialysis again on Thursday. The patient has this schedule change because of the holidays. He came to the hospital with complaint of abdominal pain. The patient was recently discharged. At that time he was complaining of pain at the site of the PermCath and also mild abdominal pain. Now it was found that he has a very high lipase level. The last time he was admitted the lipase level was 325 and now it is 2179. The patient has mild nausea. There is no vomiting. He denies any history of fever. There is no history of diarrhea. The abdominal pain started yesterday after dialysis and according to him it was increasing at the end of the dialysis to the point that he came to the hospital. PAST MEDICAL HISTORY HIV, history of lymphoma, seizure disorder, chronic anemia, end-stage renal disease on hemodialysis. PAST SURGICAL HISTORY History of PD catheter placement, history of Perma-Cath placement, bilateral lower leg amputation at the age of 12, history of left arm amputation, splenectomy. REVIEW OF SYSTEMS Denies any history of fever. No sore throat. No headache, dizziness or blurring of vision. There is no history of fever. No shortness of breath. No chest pain. He has nausea. There is no vomiting. He has abdominal pain mainly diffuse around the umbilicus, colicky in nature, associated with mild nausea. There is no history of diarrhea. SOCIAL HISTORY The patient is single and lives with his aunt and grandmother. There is no history of smoking or alcoholism. FAMILY HISTORY Positive for HIV from mother's side. ALLERGIES HE IS ALLERGIC TO AMOXICILLIN AND PENICILLIN. MEDICATIONS Currently he is on the following medications: 1. Janeen-Colace 1 tablet b.i.d. 2. Ziagen 300 milligrams b.i.d. 3. Lexiva 700 milligrams b.i.d. 4. Norvir 100 milligrams b.i.d. 5. Epivir 150 milligrams daily. 6. Pepcid 20 milligrams q. h.s. 7. Heparin 5000 subcu q. 12 hours. 8. Keppra 750 milligrams q. 12-hour. 9. PhosLo 1334 milligrams t.i.d. 10. Zofran as needed. 11. Tylenol as needed. PHYSICAL EXAMINATION GENERAL: The patient is awake, alert. He is not in acute distress. VITAL SIGNS: His last blood pressure 119/75, temperature is 97.8, oxygen saturation is 99 to 100%. HEENT: Pupils are mid constricted. Nonicteric sclera, conjunctiva pale. NECK: Supple. JVD is not elevated. LUNGS: The patient has bilateral good air entry with occasional wheezing. HEART: S1-S2, regular rhythm. ABDOMEN: Distended, soft, lax. There is a PD catheter in place. Mild tenderness around the umbilicus. There is no rebound rigidity. Bowel sounds positive. EXTREMITIES: He has bilateral above-knee amputation. INVESTIGATION WBC count is 14.2, hemoglobin 9.6, platelet count 252, neutrophils 38.6%. Sodium 138, potassium 4.6, chloride 106, bicarb 23.4, BUN 24, creatinine 4.1, calcium 7.6, lipase was 2179 and now is 1411, total protein is 8.2, albumin of 3.1, INR is 0.9. Urinalysis not done during this admission. IMAGING STUDIES The patient has CT scan of the abdomen and pelvis that was done without IV contrast and it shows distended stomach, multiple gallstones. ASSESSMENT/PLAN 1. Acute pancreatitis. 2. Abdominal pain and nausea. 3. End-stage renal disease on hemodialysis. 4. Chronic anemia. 5. History of HIV. 6. Leukocytosis. 7. History of seizure disorder. Patient has been getting IV fluid but it has been stopped now and he is started on diet, so far is tolerating. Lipase level is coming down. The patient was dialyzed yesterday. There is no acute urgent need for dialysis now. We will dialyze him again on Thursday if he is still in the hospital, give Epogen with the dialysis and he is on PhosLo for high phosphorus. Thank you for the consultation and I will follow the patient while he is in the hospital. MD SHEILA Johnson/ALEJANDRO /6:43 PM /10:15 PM
[2017-02-19 00:26] VITALS: BP 108/76; PULSE 83; RESP 18; TEMP 96.5; O2SAT 100
[2017-02-19] MEDS: diphenhydrAMINE HCL 25 MG CAP PO PRN (02:40)
[2017-02-19 08:00] VITALS: BP 110/71; PULSE 75; RESP 17; TEMP 97; O2SAT 100
[2017-02-19] MEDS: HEPARIN SODIUM - SQ 10,000 UNITS/ML VIAL SQ SCH (09:00)
--- NOTE | 2017-02-19 09:27 | PD.PN.STU ---
Subjective Remarks Patient tolerating full diet with no abdominal pain. No complaints today. Objective Vitals Vital Signs Date Time Temp Pulse Resp B/P (MAP) Pulse Ox O2 Delivery O2 Flow Rate FiO2 02/19/17 08:00 97.0 75 17 110/71 (84) 100 02/19/17 00:26 96.5 83 18 108/76 (87) 100 02/18/17 20:31 () 02/18/17 20:30 97.7 96 18 100/60 (73) 98 02/18/17 16:00 97.8 82 18 119/75 (90) 100 02/18/17 12:00 96.8 79 17 116/70 (85) 99 I/O 02/18/17 02/18/17 02/18/17 02/19/17 02/19/17 02/19/17 07:00 15:00 23:00 07:00 15:00 23:00 Intake Total 240 ml 475 ml 240 ml Output Total 400 ml 1000 ml Balance 240 ml 475 ml -160 ml -1000 ml Intake Oral 240 ml 240 ml IV Total 475 ml Output Urine Total 400 ml 1000 ml # Voids 1 # Bowel Movements 0 Result Diagram: 02/18/17 0557 02/18/17 0557 Objective Remarks GENERAL: Patient sitting up in bed, eating, in no apparent distress. SKIN: Warm and dry. HEAD: Normocephalic. EYES: No scleral icterus. No injection or drainage. NECK: Supple, trachea midline. No JVD or lymphadenopathy. CARDIOVASCULAR: Regular rate and rhythm without murmurs, gallops, or rubs. RESPIRATORY: Breath sounds equal bilaterally. No accessory muscle use. Permcath in place in right chest. GASTROINTESTINAL: Abdomen soft, non-tender, nondistended. Peritoneal dialysis port in place with no surrounding erythema. MUSCULOSKELETAL: No cyanosis, or edema. Evidence of distant bilateral lower extremity above knee amputations and left arm amputation. BACK: Nontender without obvious deformity. No CVA tenderness. Medications and IVs Current Medications Ondansetron HCl (Zofran Inj) 4 mg ONCE ONCE IVP Last administered on t 21:12; Start 02/17/17 at 20:45; Stop 02/17/17 at 20:46; Status DC Sodium Chloride (NS Flush) 2 ml UNSCH PRN IV FLUSH FLUSH AFTER USING IV ACCESS ; Start 02/17/17 at 20:45; Stop 02/18/17 at 02:52; Status DC Sodium Chloride 1,000 ml @ 70 mls/hr [id number] IV ; Start 02/18/17 at 01:45; Stop 02/18/17 at 02:52; Status DC Morphine Sulfate (Morphine Inj) 2 mg ONCE ONCE IV PUSH Last administered on 03:01; Start 02/18/17 at 01:45; Stop 02/18/17 at 01:46; Status DC Sodium Chloride (NS Flush) 2 ml UNSCH PRN IV FLUSH FLUSH AFTER USING IV ACCESS ; Start 02/18/17 at 02:45 Sodium Chloride (NS Flush) 2 ml BID IV FLUSH Last administered on 02/18/17 20 :15; Start 02/18/17 at 09:00 Acetaminophen (Tylenol) 650 mg Q4H PRN PO TEMP > 100.4; Start 02/18/17 at 02: 45 Ondansetron HCl (Zofran Inj) 4 mg Q6H PRN IVP NAUSEA OR VOMITING; Start at 02:45 Heparin Sodium (Porcine) (Heparin Inj) 5,000 units Q12H SQ ; Start 02/18/17 at 09:00 Naloxone HCl (Narcan Inj) 0.4 mg UNSCH PRN IV PUSH SEE LABEL COMMENTS; Start 02/18/17 at 02:45 Senna/Docusate Sodium (Janeen-Colace) 1 tab BID PO ; Start 02/18/17 at 09:00 Magnesium Hydroxide (Milk Of Magnesia Liq) 30 ml Q12H PRN PO Mild constipation ; Start 02/18/17 at 02:45 Sennosides (Senokot) 17.2 mg Q12H PRN PO Moderate constipation; Start at 02:45 Bisacodyl (Dulcolax Supp) 10 mg DAILY PRN RECTAL SEVERE CONSITIPATION; Start 02/18/17 at 02:45 Lactulose (Lactulose Liq) 30 ml DAILY PRN PO SEVERE CONSITIPATION; Start 02/18 at 02:45 Sodium Chloride 1,000 ml @ 75 mls/hr [id number] IV Last administered on 03:02; Start 02/18/17 at 03:00; Stop 02/18/17 at 12:51; Status DC Abacavir Sulfate (Ziagen) 300 mg BID PO Last administered on 02/18/17 20:12; Start 02/18/17 at 09:00 Calcium Acetate (Phoslo) 1,334 mg TID PO Last administered on 02/18/17 17:36 ; Start 02/18/17 at 09:00 Famotidine (Pepcid) 20 mg HS PO ; Start 02/18/17 at 21:00 Fosamprenavir Calcium (Lexiva) 700 mg BID PO Last administered on 02/18/17 20 :12; Start 02/18/17 at 09:00 Lamivudine (Epivir) 150 mg DAILY PO Last administered on 02/18/17 08:30; Start 02/18/17 at 09:00 Levetriacetam (Keppra) 750 mg Q12HR PO Last administered on 02/18/17 20:12; Start 02/18/17 at 09:00 Ritonavir (Norvir) 100 mg BID PO Last administered on 02/18/17 20:20; Start 02/18/17 at 09:00 Diphenhydramine HCl (Benadryl) 25 mg Q6H PRN PO ITCHING Last administered on 02:40; Start 02/18/17 at 17:45 A/P Assessment and Plan Patient is a 26 year old male with h/o lymphoma, limb amputations, HIV positive , ESRD who was admitted for acute pancreatitis. Acute pancreatitis: lipase over 1999 on admission, since decreased. Possibly due to gallstone. -no abdominal pain since admission yesterday. tolerating heart healthy diet. -consider repeat lipase today to ensure downward trend ESRD, on dialysis: -following with nephrology Fransisco Campbell Feb 19, 2017 09:27
[2017-02-19] MEDS: ABACAVIR SULFATE 300 MG TAB PO SCH (09:34)
[2017-02-19] MEDS: RITONAVIR 100 MG TAB PO SCH (09:34)
[2017-02-19] MEDS: CALCIUM ACETATE 667 MG CAP PO SCH (09:35)
[2017-02-19] MEDS: DOCUSATE SODIUM 50 MG/SENNA 8.6 MG TAB PO SCH (09:35)
[2017-02-19] MEDS: levETIRAcetam 250 MG TAB PO SCH (09:35)
[2017-02-19] MEDS: FOSAMPRENAVIR CALCIUM PO SCH (09:36)
[2017-02-19] MEDS: SODIUM CHLORIDE 0.9% FLUSH 10 ML FLUSH IV FLUSH SCH (09:36)
--- NOTE | 2017-02-19 10:02 | HHI.PR ---
Subjective Remarks Patient reports is feeling well. He denies any abdominal pain. Eating a regular diet. No nausea. Objective Vitals Vital Signs Date Time Temp Pulse Resp B/P (MAP) Pulse Ox O2 Delivery O2 Flow Rate FiO2 02/19/17 08:00 97.0 75 17 110/71 (84) 100 02/19/17 00:26 96.5 83 18 108/76 (87) 100 02/18/17 20:31 () 02/18/17 20:30 97.7 96 18 100/60 (73) 98 02/18/17 16:00 97.8 82 18 119/75 (90) 100 02/18/17 12:00 96.8 79 17 116/70 (85) 99 I/O 02/18/17 02/18/17 02/18/17 02/19/17 02/19/17 02/19/17 07:00 15:00 23:00 07:00 15:00 23:00 Intake Total 240 ml 475 ml 240 ml Output Total 400 ml 1000 ml Balance 240 ml 475 ml -160 ml -1000 ml Intake Oral 240 ml 240 ml IV Total 475 ml Output Urine Total 400 ml 1000 ml # Voids 1 # Bowel Movements 0 Result Diagram: 02/18/17 0557 02/18/17 0557 Objective Remarks GENERAL: This is a well-nourished, well-developed patient, in no apparent distress. CARDIOVASCULAR: Normal rate and regular rhythm without murmurs, gallops, or rubs. RESPIRATORY: Good respiratory efforts. Breath sounds equal and clear to auscultation bilaterally. GASTROINTESTINAL: Abdomen soft, non-tender, non-distended. Normal active bowel sounds MUSCULOSKELETAL: Status post bilateral lower extremity amputations NEURO: Alert & Oriented x4 to person, place, time, situation. Moves all ext x4 PSYCH: Appropriate mood and affect. A/P Assessment and Plan 26-year-old male with a past medical history significant for end-stage renal disease on HD, HIV, seizure disorder and history of lymphoma presents with abdominal pain and acute pancreatitis. Acute pancreatitis Symptoms quickly resolved. Probably past the stone. He has gallstones on CT but no obstructions. Liver enzymes unremarkable. -Strongly advised the patient to follow-up with his primary care physician for referral to surgery and evaluation for cholecystectomy. ESRD on HD Dialysis schedule Thursday, Thursday, Luis Patient followed by nephrology. Dialysis is scheduled outpatient for tomorrow. HIV Last CD4 count 275 Continue home antiretrovirals Seizure disorder Continue Keppra Discharge Planning Discharge home in good condition Follow up with: PCP Activity: Regular as tolerated Diet: Renal diet Meds: Per med rec Micheline Anthony MD Feb 19, 2017 10:02
--- NOTE | 2017-02-19 10:02 | HHI.DCPOC ---
Discharge Care Plan Diagnosis: (1) ESRD (end stage renal disease) on dialysis (2) Acute pancreatitis Goals to Promote Your Health * To prevent worsening of your condition and complications * To maintain your health at the optimal level Directions to Meet Your Goals Take your medications as prescribed Follow your dietary instruction Follow activity as directed Keep your appointments as scheduled Take your immunizations and boosters as scheduled If your symptoms worsen call your PCP, if no PCP go to Urgent Care Center or Emergency Room Smoking is Dangerous to Your Health. Avoid second hand smoke Call the 24-hour hour crisis hotline for domestic abuse at Micheline Anthony MD Feb 19, 2017 10:02
== END 2017-02-19 12:07 | disposition home or self-care (01) | DRG 438 ==
LOC: NEPE 19:59 → NEDA 02-18 01:22 → N07B 02-18 03:46
PROVIDERS: ADMIT Family Medicine; ATTEND Family Medicine
DX: K85.90 Acute pancreatitis without necrosis or infection, unspecified (principal); N18.6 End stage renal disease; Z94.81 Bone marrow transplant status; Z89.611 Acquired absence of right leg above knee; D64.9 Anemia, unspecified; K80.20 Calculus of gallbladder without cholecystitis without obstruction; G40.909 Epilepsy, unspecified, not intractable, without status epilepticus; Z21 Asymptomatic human immunodeficiency virus [HIV] infection status; Z85.72 Personal history of non-Hodgkin lymphomas; Z99.2 Dependence on renal dialysis; Z90.81 Acquired absence of spleen; Z89.612 Acquired absence of left leg above knee; Z89.212 Acquired absence of left upper limb below elbow
CPT/HCPCS: 74176; 80048; 80053; 83605; 83690; 85007; 85027; 85610; 85730; 96374; J1644; J2270; J2405; J7030

== ENCOUNTER 2017-03-11 07:52 | Day surgery (SDC) | payer MEDICARE, OTHER ==
[~2017-03-11] VITALS: Ht 165.1 cm; Wt 50.0 kg
[~2017-03-11 07:52] MED LIST changes: -NORC5TAB PO
[2017-03-11] MEDS ORDERED: IOHEXOL 350 MG/ML 50 ML BTL (for RAD DIAG) OTHER ONE (07:53)
[2017-03-11 08:10] VITALS: BP 83/60; PULSE 105; RESP 20; TEMP 98.9; O2SAT 96
[2017-03-11] MEDS ORDERED: VANCOMYCIN HCL 1000 MG VIAL ONE (08:58)
[2017-03-11] MEDS ORDERED: MIDAZOLAM HCL 5 MG/5 ML VIAL ONE (08:58)
[2017-03-11] MEDS ORDERED: SODIUM CHLOR 0.9% 250 ML INJ 250 ML ONE (08:58)
[2017-03-11] MEDS ORDERED: SODIUM CHLORIDE 0.9% 1000 ML IV SCH (09:00)
[2017-03-11] MEDS ORDERED: VANCOMYCIN 1000 MG/NS 250 ML - implanted port/tunneled catheter IV SCH ×2 (09:15)
--- NOTE | 2017-03-11 09:51 | PD.RAD ---
Post Procedure Progress Note Pre Procedure Diagnosis: (1) Peritoneal dialysis catheter dysfunction (2) ESRD (end stage renal disease) on dialysis Post Procedure Diagnosis: (1) Peritoneal dialysis catheter dysfunction (2) ESRD (end stage renal disease) on dialysis Procedure Date: Mar 11, 2017 Supervising Radiologist: Shaquille García Anesthesia: Conscious Sedation Plan of Activity Patient to Unit: ROPU Patient Condition: Fair Additional Comments: Peritoneal catheter evaluated without difficulty. Catheter cleared but could not be repositioned. Catheter now flushes and aspirates normally. See PACS Report for procedural detail/treatment Shaquille García MD Mar 11, 2017 09:51
[2017-03-11 10:00] VITALS: BP 83/55; PULSE 105; RESP 18; TEMP 98.5; O2SAT 91
--- NOTE | 2017-03-11 10:13 | RADRPT ---
EXAM DATE/TIME: 03/11/2017 08:57 [place] COMPARISON: PERITONEAL CATHETER REPOSITION, March 11, 2017, 0:00. INDICATIONS : Patient with a nonfunctioning PD cath.Here to evaluate and repostion if possible. MEDICAL HISTORY : 1. ESRD 2. HIV 3. Lymphoma 4. Seizures 5. Pancreatitis SURGICAL HISTORY : 1. PD cath 2. Bilateral BKA 3/ L arm partial amputat 4. spleenectomyion ENCOUNTER: Initial ACUITY: 1 month PAIN SCORE: 2/10 LOCATION: abdomen FLUORO TIME: 3.8 minutes IMAGE SERIES: 1 SEDATION TIME: 45minutes CONTRAST: 10 cc Omnipaque (iohexol) 350 MEDICATION(S): 1.) 4 mg midazolam (Versed) IV 2.) 100 mcg fentanyl (Sublimaze) IV PROCEDURE : 1. Tenckhoff catheter evaluation and declotting. The risks, benefits and alternatives to the procedure were explained and verbal and written consent w as obtained. The site was prepped in sterile fashion. Full sterile technique was used, including ca p, mask, sterile gloves and gown and a large sterile sheet. Hand hygiene and 2% chlorhexidine and/or betadine/alcohol prep was utilized per protocol for cutaneous antisepsis. The skin and subcutaneous tissues were infiltrated with local anesthetic solution. The catheter was accessed using sterile technique. A small injection of contrast was used to unclog t he catheter. This was followed by attempt at repositioning using a 0.035 stiff angled Glidewire. The catheter could not be repositioned however, following the injection of contrast and passage of th e glide wire through the catheter contrast flowed freely from the catheter and into the peritoneal ca vity. The catheter now appears to function normally. CONCLUSION: 1. Successful unclogging of the patient's Tenckhoff catheter. Shaquille García MD on March 11, 2017 at 10:10 Board Certified Radiologist. This report was verified electronically.
[2017-03-11 10:15] VITALS: BP 102/50; PULSE 103; RESP 18; O2SAT 94
[2017-03-11 10:45] VITALS: BP 97/53; PULSE 109; RESP 16; O2SAT 92
[2017-03-11 11:15] VITALS: BP 90/56; PULSE 117; RESP 16; O2SAT 96
== END 2017-03-11 13:25 | disposition home or self-care (01) ==
LOC: HROP 07:52 → HRIP 07:55 → HROP 13:25
PROVIDERS: ATTEND Internal Medicine Nephrology
DX: T85.611A Breakdown (mechanical) of intraperitoneal dialysis catheter, initial encounter (principal); N18.6 End stage renal disease; K85.90 Acute pancreatitis without necrosis or infection, unspecified; Z99.2 Dependence on renal dialysis; Y81.2 Prosthetic and other implants, materials and accessory general- and plastic-surgery devices associated with adverse incidents
CPT/HCPCS: 49400; 49999; 74190; 99152; 99153; C1769; J2250; J3010; J3370; J7030; J7050; Q9967

== ENCOUNTER 2017-04-02 08:06 | Inpatient (IN) | payer MEDICARE, OTHER ==
[2017-04-02] VITALS (7 sets, daily range): BP systolic 82–84; BP diastolic 48; PULSE 114–137; RESP 19–30; TEMP 98.8–100.1; O2SAT 94–97
[2017-04-02] MEDS ORDERED: SODIUM CHLORID 0.9% 500 ML IV PRN (08:45)
[2017-04-02] MEDS ORDERED: INSULIN HUMAN REGULAR 1,000 UNITS/10 ML VIAL SQ PRN (08:45)
[2017-04-02] MEDS ORDERED: CHLORHEXIDINE GLUCONATE 2 % 1 PACK (2 CLOTHS) TOPICAL PRN (08:45)
[2017-04-02] MEDS ORDERED: POVIDONE IODINE 5% (ANTISEPSIS KIT) 4 APPLICATIONS EACH NARE PRN (08:45)
[2017-04-02] MEDS ORDERED: METOPROLOL TARTRATE 25 MG TAB PO PRN (08:45)
[2017-04-02] MEDS: LACTATED RINGER'S 1000 ML IV PRN ×2 (09:00→17:50)
[2017-04-02 09:22] LABS: AUTOMATED NEUTROPHIL # 5.2 TH/MM3 (1.8-7.7); BASOPHIL # 0.1 TH/MM3 (0-0.2); BASOPHIL % 1.2 % (0.0-2.0); EOSINOPHIL # 0.2 TH/MM3 (0-0.4); EOSINOPHIL % 1.8 % (0.0-4.0); HEMATOCRIT 29.5 % (39.0-51.0); HEMOGLOBIN 9.1 GM/DL (13.0-17.0); LYMPHOCYTE # 4.3 TH/MM3 (1.0-4.8); MEAN CELL VOLUME 82.4 FL (80.0-100.0); MEAN CORPUSCULAR HEMOGLOBIN 25.5 PG (27.0-34.0); MEAN PLATELET VOLUME 8.8 FL (7.0-11.0); MONO % 15.9 % (0.0-8.0); MONOCYTE # 1.9 TH/MM3 (0-0.9); NEUT % 44.1 % (16.0-70.0); PLATELET COUNT 346 TH/MM3 (150-450); RED BLOOD COUNT 3.58 MIL/MM3 (4.50-5.90); RED CELL DISTRIBUTION WIDTH 18.2 % (11.6-17.2); WHITE BLOOD COUNT 11.7 TH/MM3 (4.0-11.0)
[2017-04-02 09:42] LABS: BICARBONATE 24.8 MEQ/L (21.0-32.0); CALCIUM 11.2 MG/DL (8.5-10.1); CREATININE 8.72 MG/DL (0.60-1.30)
[2017-04-02] MEDS ORDERED: CLINDAMYCIN 600 MG/DEX PREMIX 50 ML IV SCH (09:45)
[2017-04-02] MEDS ORDERED: BUPIVACAINE/EPINEPHRINE 0.25% PF 30 ML VIAL ONE (10:06)
[2017-04-02 10:35] LABS: CORRECTED NUCLEATED RBC 2 /100 WBC (0-0); LYMPHOCYTES 41 % (9-44); MONOCYTES 15 % (0-8); NUCLEATED RED BLOOD CELL 2 (0-0); POLYS (SEG NEUTROPHILS) 43 % (16-70); TARGET CELLS 2+ (NORMAL)
[2017-04-02 10:36] LABS: HOWELL-JOLLY BODIES PRESENT (NONE SEEN)
[2017-04-02 10:37] LABS: ACANTHOCYTES OCC (NORMAL)
[2017-04-02] MEDS: VASOPRESSIN 20 UNITS/ML VIAL (IVTITR) ONE (10:56)
--- NOTE | 2017-04-02 11:27 | HHI.PR ---
Immediate Post Op Note Procedure Date: Apr 02, 2017 Pre Op Diagnosis: ESRD, obstruction of pd cath Post Op Diagnosis: same Surgeon: Sen Goins MD Supervisor [employer](s): [employer] Procedure: laparoscopic revision of PD cath Findings: pd cath encased in small bowel with adhesions, fibrous adhesion in pd cath Complications: none Specimen(s) removed: fibrous tissues in pd cath sent for cx Anesthesia: General Drains: None Patient to: PACU Patient Condition: Good Sen Goins MD Apr 02, 2017 11:27
[2017-04-02] MEDS ORDERED: SODIUM CHLORIDE 0.9% FLUSH 10 ML FLUSH IV FLUSH PRN (11:30)
[2017-04-02] MEDS: SODIUM CHLORIDE 0.9% FLUSH 10 ML FLUSH IV FLUSH SCH ×2 (11:30→21:26)
[2017-04-02] MEDS ORDERED: CLINDAMYCIN INJ 600 MG in SODIUM CHLORIDE 0.9% INJ 50 ML IV SCH (11:30)
[2017-04-02] MEDS ORDERED: Post-op Orders (for Pharmacy) XX ONE (11:30)
[2017-04-02] MEDS ORDERED: ONDANSETRON HCL 4 MG/2 ML VIAL IV PUSH PRN (11:30)
[2017-04-02] MEDS ORDERED: MORPHINE SULFATE 2 MG/ML INJ IV PUSH PRN (11:45)
[2017-04-02] MEDS ORDERED: MIDAZOLAM HCL 2 MG/2 ML VIAL ONE (11:47)
[2017-04-02] MEDS ORDERED: GLYCOPYRROLATE 1 MG/5 ML SYRINGE IV PUSH ONE (12:00)
[2017-04-02] MEDS ORDERED: ROCURONIUM INJ 50 MG/5 ML VIAL IV ONE (12:00)
[2017-04-02] MEDS ORDERED: PROPOFOL 200 MG/20 ML AMP IV ONE (12:00)
[2017-04-02] MEDS ORDERED: NEOSTIGMINE 5 MG/5 ML SYRINGE IV PUSH ONE (12:00)
[2017-04-02] MEDS ORDERED: PHENYLEPH/NS 1000 MCG/10 ML SYR IV ONE (12:00)
[2017-04-02] MEDS ORDERED: LIDOCAINE HCL 1% PF 5 ML SYRINGE OTHER ONE (12:00)
[2017-04-02] MEDS ORDERED: ONDANSETRON HCL 4 MG/2 ML VIAL IV PUSH ONE (12:00)
[2017-04-02] MEDS: DOCUSATE SODIUM 100 MG CAP PO SCH ×2 (12:00→21:25)
[2017-04-02] MEDS ORDERED: DO NOT ADM ANY ANTICOAGULANT DRUGS PRN (13:00)
--- NOTE | 2017-04-02 14:53 | PD.CONS ---
HPI Service Nephrology Consult Requested By Dr. Goins Reason for Consult ESRD management Primary Care Physician No Primary Care Physician History of Present Illness Patient is a 26-year-old Afro-[place] male with ESRD, HIV, multiple amputation who has been admitted as a peritoneal dialysis catheter was obstructed this was changed and patient is now seen during hemodialysis he usually runs low blood pressure he is always weak and tired. He follows with Dr. Solis Review of Systems Constitutional: COMPLAINS OF: Fatigue Past Family Social History Allergies: Coded Allergies: amoxicillin (Verified Allergy, Severe, rash all over, 04/02/17) penicillin G (Verified Allergy, Severe, Anaphylaxis, 04/02/17) Past Medical History History of lymphoma HIV disease ESRD Multiple amputation Low blood pressure Peritoneal dialysis catheter Seizure Past Surgical History Permacath Peritoneal dialysis catheter Multiple amputation Reported Medications Reported Meds & Active Scripts Active Calcium Acetate (Calcium Acetate (Phosphate Bin) 667 Mg Cap 1,334 Mg PO TID Norvir (Ritonavir) 100 Mg Cap 100 Mg PO BID Epivir (Lamivudine) 150 Mg Tab 150 Mg PO DAILY *Fill this 5 day prescription first and begin taking Epivir 12 hours after the first dose received in the Emergency Department as prescribed.* Lexiva (Fosamprenavir Calcium) 700 Mg Tab 1 Tab PO BID Ziagen (Abacavir Sulfate) 300 Mg Tab 300 Mg PO BID Hazardous agent; use appropriate precautions for handling & disposal. Keppra (Levetiracetam) 250 Mg Tab 750 Mg PO Q12HR Famotidine 20 Mg Tab 20 Mg PO HS Active Ordered Medications Current Medications Medications (Trade) Dose Ordered Sig/Moose Route Start Time Stop Time Status Last Admin Lactated Ringer's 1,000 ml @ 30 mls/hr Q24H PRN IV 04/02/17 08:45 04/05/17 08:44 04/02/17 09:00 Sodium Chloride 500 ml @ 30 mls/hr [id number] PRN IV 04/02/17 08:45 04/05/17 08:44 (Lopressor) 25 mg AUTOMATIC GRINDING MACHINE OPERATOR PRN PO 04/02/17 08:45 04/05/17 08:44 (Betadine 5% Antisepsis Kit) 1 applic AUTOMATIC GRINDING MACHINE OPERATOR PRN EACH NARE 04/02/17 08:45 04/05/17 08:44 04/02/17 09:00 (Chlorhexidine 2% Cloth) 3 pack AUTOMATIC GRINDING MACHINE OPERATOR PRN TOPICAL 04/02/17 08:45 04/05/17 08:44 04/02/17 08:45 (NovoLIN R INJ) See Protocol Table ... AUTOMATIC GRINDING MACHINE OPERATOR PRN SQ 04/02/17 08:45 04/05/17 08:44 Clindamycin Phosphate/Dextrose 50 ml @ 100 mls/hr AUTOMATIC GRINDING MACHINE OPERATOR IV 04/02/17 09:45 04/02/17 23:59 04/02/17 09:55 (NS Flush) 2 ml UNSCH PRN IV FLUSH 04/02/17 11:30 (NS Flush) 2 ml BID IV FLUSH 04/02/17 11:30 (Herod 5-325 Mg) 1 tab Q4H PRN PO 04/02/17 11:30 (Herod 5-325 Mg) 2 tab Q4H PRN PO 04/02/17 11:30 (Zofran Inj) 4 mg Q4H PRN IV PUSH 04/02/17 11:30 (Colace) 100 mg BID PO 04/02/17 12:00 (Morphine Inj) 2 mg Q3H PRN IV PUSH 04/02/17 11:45 Clindamycin/ Sodium Chloride 50 ml @ 100 mls/hr Q8H IV 04/02/17 18:00 04/03/17 10:29 Miscellaneous Information ALL NURSING DEPARTME... UNSCH PRN .XX 04/02/17 13:00 04/03/17 12:59 Family History Noncontributing Social History He used to use use marijuana Physical Exam Vital Signs Vital Signs Date Time Temp Pulse Resp B/P (MAP) Pulse Ox O2 Delivery O2 Flow Rate FiO2 04/02/17 14:00 98.6 85 24 92/54 (67) 96 Room Air 04/02/17 13:30 88 14 89/54 (66) 96 04/02/17 13:00 83 13 92/50 (64) 92 04/02/17 12:45 83 20 99/57 (71) 98 04/02/17 12:30 89 13 95/50 (65) 96 04/02/17 12:15 92 13 93/51 (65) 94 04/02/17 12:00 99 11 86/50 (62) 95 04/02/17 11:45 95 15 84/46 (59) 99 04/02/17 11:38 97.6 100 18 99/57 (71) 99 Simple Mask 6 04/02/17 10:56 110 109/57 04/02/17 08:47 98.1 98 20 96/66 (76) 98 Physical Exam GENERAL: Well-nourished, well-developed patient. SKIN: Warm and dry. HEAD: Normocephalic. EYES: No scleral icterus. No injection or drainage. NECK: Supple, trachea midline. No JVD or lymphadenopathy. CARDIOVASCULAR: Regular rate and rhythm without murmurs, gallops, or rubs. Permacath RESPIRATORY: Breath sounds equal bilaterally. No accessory muscle use. GASTROINTESTINAL: Abdomen soft, non-tender, nondistended. Tenckhoff catheter in place EXTREMITIES: Bilateral amputation left arm amputation NEUROLOGICAL: Awake, alert, and oriented x 3. Non-focal. Laboratory Laboratory Tests Test 04/02/17 09:00 White Blood Count 11.7 Red Blood Count 3.58 Hemoglobin 9.1 Hematocrit 29.5 Mean Corpuscular Volume 82.4 Mean Corpuscular Hemoglobin 25.5 Mean Corpuscular Hemoglobin Concent 31.0 Red Cell Distribution Width 18.2 Platelet Count 346 Mean Platelet Volume 8.8 Neutrophils (%) (Auto) 44.1 Lymphocytes (%) (Auto) 37.0 Monocytes (%) (Auto) 15.9 Eosinophils (%) (Auto) 1.8 Basophils (%) (Auto) 1.2 Neutrophils # (Auto) 5.2 Lymphocytes # (Auto) 4.3 Monocytes # (Auto) 1.9 Eosinophils # (Auto) 0.2 Basophils # (Auto) 0.1 CBC Comment AUTO DIFF Differential Total Cells Counted 100 Neutrophils % (Manual) 43 Lymphocytes % 41 Monocytes % 15 Eosinophils % 1 Neutrophils # (Manual) 5.0 Nucleated Red Blood Cells 2 Differential Comment FINAL DIFF MANUAL Platelet Estimate NORMAL Platelet Morphology Comment NORMAL Target Cells 2+ [place] Bodies PRESENT Acanthocytes OCC Blood Urea Nitrogen 31 Creatinine 8.72 Random Glucose 87 Calcium Level 11.2 Sodium Level 132 Potassium Level 4.8 Chloride Level 93 Carbon Dioxide Level 24.8 Anion Gap 14 Estimat Glomerular Filtration Rate 9 Date/Time Source Procedure Growth Status 04/02/17 11:08 Wound Other Gram Stain Pending Received 04/02/17 11:08 Wound Other Wound Culture Pending Received Result Diagram: 04/02/1789904/02/17899 Assessment and Plan Problem List: (1) ESRD (end stage renal disease) on dialysis ICD Codes: N18.6 - End stage renal disease; Z99.2 - Dependence on renal dialysis Plan: Patient is seen during hemodialysis his blood pressures low continue minimal ultrafiltration Monitor blood pressure (2) HIV (human immunodeficiency virus infection) ICD Codes: Z21 - Asymptomatic human immunodeficiency virus [HIV] infection status Status: Chronic Plan: He is on outpatient medications (3) Peritoneal dialysis catheter dysfunction ICD Codes: T85.611A - Breakdown (mechanical) of intraperitoneal dialysis catheter, initial encounter Plan: Replaced Mireya Eduardo MD Apr 02, 2017 14:53
--- NOTE | 2017-04-02 15:23 | PD.CONS ---
HPI Service [facility] Hospital[facility] Consult Requested By Dr. Buster Chatterjee Reason for Consult Medical management Primary Care Physician No Primary Care Physician Diagnoses: History of Present Illness Patient is a 26 with history of ESRD on peritoneal dialysis, HIV, and s/p amputations of limbs who was admitted secondary to peritoneal dialysis catheter being obstructed. [facility] consulted for medical management. Patient had laparoscopic revision of PD cath by Dr. Buster Chatterjee general surgeon. In the PACU patient was mildly hypotensive but asymptomatic. Patient seen and PACU waiting for a bed. He had no complaints except for abdominal pain at the surgical site with palpation. All other review system reviewed and negative. Past Family Social History Allergies: Coded Allergies: amoxicillin (Verified Allergy, Severe, rash all over, 04/02/17) penicillin G (Verified Allergy, Severe, Anaphylaxis, 04/02/17) Past Medical History End-stage renal disease on peritoneal dialysis History of lymphoma Bilateral amputations of the lower extremities Left upper extremity amputation HIV, last CD4 cell count 275 on 02/03/17 Seizure disorder Past Surgical History Permacath Bilateral lower and left upper extremity amputations at age 12 Splenectomy Reported Medications Reported Meds & Active Scripts Active Calcium Acetate (Calcium Acetate (Phosphate Bin) 667 Mg Cap 1,334 Mg PO TID Norvir (Ritonavir) 100 Mg Cap 100 Mg PO BID Epivir (Lamivudine) 150 Mg Tab 150 Mg PO DAILY *Fill this 5 day prescription first and begin taking Epivir 12 hours after the first dose received in the Emergency Department as prescribed.* Lexiva (Fosamprenavir Calcium) 700 Mg Tab 1 Tab PO BID Ziagen (Abacavir Sulfate) 300 Mg Tab 300 Mg PO BID Hazardous agent; use appropriate precautions for handling & disposal. Keppra (Levetiracetam) 250 Mg Tab 750 Mg PO Q12HR Famotidine 20 Mg Tab 20 Mg PO HS Active Ordered Medications Current Medications Lactated Ringer's 1,000 ml @ 30 mls/hr Q24H PRN IV SEE LABEL COMMENTS Last administered on 04/02/17at 09:00; Start 04/02/17 at 08:45; Stop 04/05/17 at 08:44 Sodium Chloride 500 ml @ 30 mls/hr [id number] PRN IV SEE LABEL COMMENTS; Start 04/02/17 at 08:45; Stop 04/05/17 at 08:44 Metoprolol Tartrate (Lopressor) 25 mg [employer]ANDFILL [employer] FIELD TECHNICIAN PRN PO SEE LABEL COMMENTS; Start 04/02/17 at 08:45; Stop 04/05/17 at 08:44 Povidone Iodine (Betadine 5% Antisepsis Kit) 1 applic [employer] FI[employer] TECHNICIAN PRN EACH NARE SEE LABEL COMMENTS Last administered on 04/02/17at 09:00; Start 04/02/17 at 08:45; Stop 04/05/17 at 08:44 Chlorhexidine Gluconate (Chlorhexidine 2% Cloth) 3 pack [employer] FI[employer] TECHNICIAN PRN TOPICAL SEE LABEL COMMENTS Last administered on 04/02/17at 08:45; Start 04/02/17 at 08:45; Stop 04/05/17 at 08:44 Insulin Human Regular (NovoLIN R INJ) See Protocol Table ... [employer] FI[employer] TECHNICIAN PRN SQ SEE PROTOCOL TABLE; Start 04/02/17 at 08:45; Stop 04/05/17 at 08:44 Clindamycin Phosphate/Dextrose 50 ml @ 100 mls/hr [employer] FI[employer] TECHNICIAN IV Last administered on 04/02/17at 09:55; Start 04/02/17 at 09:45; Stop 04/02/17 at 23:59 Bupivacaine HCl/ Epinephrine Bitart (Marcaine-Epi Pf 0.25% Inj) 30 ml STK-MED ONCE .ROUTE Last administered on 04/02/17at 10:30; Start 04/02/17 at 10:06; Stop 04/02/17 at 10:07; Status DC Vasopressin (Pitressin Inj) 20 units STK-MED ONCE .ROUTE Last administered on at 10:56; Start 04/02/17 at 10:51; Stop 04/02/17 at 10:52; Status DC Sodium Chloride (NS Flush) 2 ml UNSCH PRN IV FLUSH FLUSH AFTER USING IV ACCESS ; Start 04/02/17 at 11:30 Sodium Chloride (NS Flush) 2 ml BID IV FLUSH ; Start 04/02/17 at 11:30 Acetaminophen/ Hydrocodone Bitart (Guthrie 5-325 Mg) 1 tab Q4H PRN PO PAIN SCALE 1 TO 5; Start 04/02/17 at 11:30 Acetaminophen/ Hydrocodone Bitart (Guthrie 5-325 Mg) 2 tab Q4H PRN PO PAIN SCALE 6 TO 10; Start 04/02/17 at 11:30 Ondansetron HCl (Zofran Inj) 4 mg Q4H PRN IV PUSH NAUSEA OR VOMITING; Start 04/02/17 at 11:30 Docusate Sodium (Colace) 100 mg BID PO ; Start 04/02/17 at 12:00 Clindamycin Phosphate 600 mg/ Sodium Chloride 54 ml @ 108 mls/hr Q8H IV ; Start 04/02/17 at 11:30; Stop 04/03/17 at 03:59; Status UNV Miscellaneous Information (Post-op Orders (for Pharmacy)) STAT ONCE XX ; Start 04/02/17 at 11:30; Stop 04/02/17 at 11:40; Status DC Morphine Sulfate (Morphine Inj) 2 mg Q3H PRN IV PUSH BREAKTHROUGH PAIN; Start 04/02/17 at 11:45 Midazolam HCl (Versed Inj) 2 mg STK-MED ONCE .ROUTE ; Start 04/02/17 at 11:47; Stop 04/02/17 at 11:48; Status DC Fentanyl Citrate (fentaNYL INJ) 200 mcg STK-MED ONCE .ROUTE ; Start 04/02/17 at 11:47; Stop 04/02/17 at 11:48; Status DC Clindamycin/ Sodium Chloride 50 ml @ 100 mls/hr Q8H IV ; Start 04/02/17 at 18:00 ; Stop 04/03/17 at 10:29 Miscellaneous Information ALL NURSING DEPARTME... UNSCH PRN .XX SEE LABEL COMMENTS; Start 04/02/17 at 13:00; Stop 04/03/17 at 12:59 Family History Denies family history of heart disease or diabetes mellitus. Social History Denies tobacco, alcohol and illicit drugs. Physical Exam Vital Signs Vital Signs Date Time Temp Pulse Resp B/P (MAP) Pulse Ox O2 Delivery O2 Flow Rate FiO2 04/02/17 14:00 98.6 85 24 92/54 (67) 96 Room Air 04/02/17 13:30 88 14 89/54 (66) 96 04/02/17 13:00 83 13 92/50 (64) 92 04/02/17 12:45 83 20 99/57 (71) 98 04/02/17 12:30 89 13 95/50 (65) 96 04/02/17 12:15 92 13 93/51 (65) 94 04/02/17 12:00 99 11 86/50 (62) 95 1/4/18 11:45 95 15 84/46 (59) 99 04/02/17 11:38 97.6 100 18 99/57 (71) 99 Simple Mask 6 04/02/17 10:56 110 109/57 04/02/17 08:47 98.1 98 20 96/66 (76) 98 Physical Exam GENERAL: This is a well-nourished, well-developed patient, in no apparent distress. SKIN: No rashes, ecchymoses or lesions. Cool and dry. HEAD: Atraumatic. Normocephalic. No temporal or scalp tenderness. EYES: Pupils equal round and reactive. Extraocular motions intact. No scleral icterus. No injection or drainage. ENT: Nose without bleeding, purulent drainage or septal hematoma. Throat without erythema, tonsillar hypertrophy or exudate. Uvula midline. Airway patent. NECK: Trachea midline. No JVD or lymphadenopathy. Supple, nontender, no meningeal signs. CARDIOVASCULAR: Regular rate and rhythm without murmurs, gallops, or rubs. RESPIRATORY: Clear to auscultation. Breath sounds equal bilaterally. No wheezes , rales, or rhonchi. GASTROINTESTINAL: Abdomen soft, nondistended. Diffuse tenderness of the abdomen with palpation. No hepato-splenomegaly, or palpable masses. No guarding. Negative for any peritoneal signs. MUSCULOSKELETAL: Bilateral BKA. Left arm amputation. Stump is dry clean and intact. NEUROLOGICAL: Awake and alert. Cranial nerves II through XII intact. Motor and sensory grossly within normal limits. Five out of 5 muscle strength in all muscle groups. Normal speech. Laboratory Laboratory Tests Test 04/02/17 09:00 White Blood Count 11.7 Red Blood Count 3.58 Hemoglobin 9.1 Hematocrit 29.5 Mean Corpuscular Volume 82.4 Mean Corpuscular Hemoglobin 25.5 Mean Corpuscular Hemoglobin Concent 31.0 Red Cell Distribution Width 18.2 Platelet Count 346 Mean Platelet Volume 8.8 Neutrophils (%) (Auto) 44.1 Lymphocytes (%) (Auto) 37.0 Monocytes (%) (Auto) 15.9 Eosinophils (%) (Auto) 1.8 Basophils (%) (Auto) 1.2 Neutrophils # (Auto) 5.2 Lymphocytes # (Auto) 4.3 Monocytes # (Auto) 1.9 Eosinophils # (Auto) 0.2 Basophils # (Auto) 0.1 CBC Comment AUTO DIFF Differential Total Cells Counted 100 Neutrophils % (Manual) 43 Lymphocytes % 41 Monocytes % 15 Eosinophils % 1 Neutrophils # (Manual) 5.0 Nucleated Red Blood Cells 2 Differential Comment FINAL DIFF MANUAL Platelet Estimate NORMAL Platelet Morphology Comment NORMAL Target Cells 2+ Ohara-[place] Bodies PRESENT Acanthocytes OCC Blood Urea Nitrogen 31 Creatinine 8.72 Random Glucose 87 Calcium Level 11.2 Sodium Level 132 Potassium Level 4.8 Chloride Level 93 Carbon Dioxide Level 24.8 Anion Gap 14 Estimat Glomerular Filtration Rate 9 Date/Time Source Procedure Growth Status 04/02/17 11:08 Wound Other Gram Stain Pending Received 04/02/17 11:08 Wound Other Wound Culture Pending Received Result Diagram: 04/02/17 0900 04/02/17 0900 Assessment and Plan Assessment and Plan This is a 26-year-old male who has end-stage renal disease on peritoneal dialysis who had obstruction of his catheter Permacath obstruction -Status post laparoscopic revision of PD cath findings include permacath obstruction encased in small bowel with adhesions, fibrous adhesion. -Management per surgeon. End-stage renal disease -Nephrology was consulted. Management per director business travel. HIV last CD4 count 275 on 02/03/2017, history of seizure disorder, history lymphoma, lower extremity amputations and left upper extremity amputation -Resume home medication. Mild hypotension -Asymptomatic. Most likely secondary to anesthesia. No signs of infection. Continue monitor. Will need to be very cautious with any types of fluid since patient has end-stage renal disease and is on dialysis. Discussed Condition With patient and PACU nurse Avril Lewis MD Apr 02, 2017 15:23
[2017-04-02 17:11] LABS: HEMATOCRIT 27.5 % (39.0-51.0); HEMOGLOBIN 8.4 GM/DL (13.0-17.0); MEAN CELL VOLUME 82.8 FL (80.0-100.0); MEAN CORPUSCULAR HEMOGLOBIN 25.3 PG (27.0-34.0); MEAN CORPUSCULAR HGB CONC 30.6 % (32.0-36.0); MEAN PLATELET VOLUME 9.1 FL (7.0-11.0); PLATELET COUNT 266 TH/MM3 (150-450); RED BLOOD COUNT 3.32 MIL/MM3 (4.50-5.90); RED CELL DISTRIBUTION WIDTH 18.1 % (11.6-17.2); WHITE BLOOD COUNT 8.5 TH/MM3 (4.0-11.0)
[2017-04-02] MEDS: CALCIUM ACETATE 667 MG CAP PO SCH (17:48)
[2017-04-02] MEDS: ACETAMINOPHEN/HYDROcodone 325 MG/5 MG TAB PO PRN ×2 (17:48→22:56)
[2017-04-02 17:50] LABS: ALBUMIN 2.6 GM/DL (3.4-5.0); ALKALINE PHOSPHATASE 89 U/L (45-117); ALT (GPT) 12 U/L (12-78); AST (GOT) 13 U/L (15-37); BICARBONATE 27.5 MEQ/L (21.0-32.0); BLOOD UREA NITROGEN 15 MG/DL (7-18); CALCIUM 8.1 MG/DL (8.5-10.1); CHLORIDE 102 MEQ/L (98-107); CREATININE 4.45 MG/DL (0.60-1.30); GLOMERULAR FILTRATION RATE 19 ML/MIN (>89); GLUCOSE,RANDOM 107 MG/DL (74-106); SODIUM (NA) 140 MEQ/L (136-145); TOTAL BILIRUBIN ADULT 0.3 MG/DL (0.2-1.0); TOTAL PROTEIN 6.7 GM/DL (6.4-8.2)
[2017-04-02] MEDS: CLINDAMYCIN 600 MG/NS PREMIX 50 ML IV SCH (18:22)
[2017-04-02] MEDS: FAMOTIDINE 20 MG TAB PO SCH (21:25)
[2017-04-02] MEDS: FOSAMPRENAVIR CALCIUM PO SCH (21:25)
[2017-04-02] MEDS: ABACAVIR SULFATE 300 MG TAB PO SCH (21:25)
[2017-04-02] MEDS: RITONAVIR 100 MG TAB PO SCH (21:25)
[2017-04-02] MEDS: levETIRAcetam 250 MG TAB PO SCH (21:26)
[2017-04-02] MEDS ORDERED: SODIUM CHLOR 0.9% 250 ML INJ 250 ML IV ONE (22:45)
--- NOTE | 2017-04-02 22:57 | MP ---
cc: JASPER GOINS MD DATE OF SURGERY 04/02/17 PREOPERATIVE DIAGNOSIS End-stage renal disease. Desire for PD catheter, obstruction of PD catheter. POSTOPERATIVE DIAGNOSIS End-stage renal disease. Desire for PD catheter, obstruction of PD catheter. PROCEDURE PERFORMED Laparoscopic revision of PD catheter. SURGEON Dr. Mary Goins DRIVE TESTER Brittany LINCOLN. IV FLUIDS See anesthesia sheet ESTIMATED BLOOD LOSS 5 mL. DRAINS None COMPLICATIONS None. WOUND CLASSIFICATION Clean SPECIMENS Fibrous tissue from PD catheter for culture INDICATION The patient is a 26-year-old male who presents with history of end-stage renal disease, multiple medical issues. Bilateral lower extremity amputee, left upper extremity amputee currently on hemodialysis, desire for peritoneal dialysis. Had peritoneal dialysis catheter placed. However, had obstruction. The catheter would not flow appropriately. Therefore, discussion and evaluation for revision. PROCEDURE IN DETAIL The patient was taken to the operative suite, placed in supine position. He was prepped and draped in usual sterile fashion. After induction of general endotracheal anesthesia, a brief time-out done stating correct patient, procedure, surgical site and all were in agreement with this. Attention was first directed to the left upper quadrant where a small stab joyce incision was made with an 11-blade. Local anesthetic injected. The optical 5 mm trocar was used to enter the Abdomen. Abdomen insufflated 50 mm pneumoperitoneum. On inspection no evidence of injury. On inspection of the pelvis, there was noted to be some adhesions and the catheter was not even able to be visualized at this point. One other smaller 5 mm trocar was placed at previous incisional splenectomy scar in the left upper quadrant under direct visualization. Attention redirected down the pelvis. The patient placed in Trendelenburg. Catheter was noted to be adhesed into multiple loops of small bowel to the left lower quadrant and was not readily visualized. The anterior peritoneum was identified and the catheter could be palpated through this thin peritoneal layer. Bovie cautery was used to incise small incision in the peritoneum laparoscopically. The tubing was identified. Tubing was then brought through into the peritoneal cavity and repositioned. The catheter was tacked to the anterior abdominal wall in a normal capillary anatomical location. This was done with 2-0 Prolene sutures with a transvaginal suture passer. This was done to four different locations in order to secure the pigtail appropriately. The pigtail was hooked up to the infusion bag with one liter. There was noted good flow through the catheter. However, distal tip noted to have obstruction. The obstructing fibrous tissue was milked out with a laparoscopic grasper and a piece of the tissue was sent for cultures. Once this was removed, the catheter flowed unobstructed completely and freely. The bag was then placed on the floor and 800 mL obtained to return to gravity into the saline liter bag. At this point, abdomen was desufflated. The ports were closed with 4-0 Monocryl, Mastisol and Steri-Strips were placed. The patient tolerated procedure well. There were no intraoperative complication. All lap and instrument counts were correct at the end of the procedure. The patient was extubated and taken stable to PACU. MD CATHI Pruitt/ /2:56 PM /10:25 PM
[2017-04-03] VITALS (15 sets, daily range): BP systolic 76–105; BP diastolic 42–53; PULSE 104–130; RESP 16–30; TEMP 98.3–100; O2SAT 95–100
[2017-04-03] MEDS: ACETAMINOPHEN/HYDROcodone 325 MG/5 MG TAB PO PRN ×3 (02:49→17:07)
[2017-04-03] MEDS: CLINDAMYCIN 600 MG/NS PREMIX 50 ML IV SCH ×2 (03:13→09:50)
[2017-04-03 04:43] LABS: AUTOMATED NEUTROPHIL # 17.6 TH/MM3 (1.8-7.7); BASOPHIL % 0.2 % (0.0-2.0); EOSINOPHIL # 0.3 TH/MM3 (0-0.4); EOSINOPHIL % 1.4 % (0.0-4.0); HEMATOCRIT 29.5 % (39.0-51.0); HEMOGLOBIN 9.2 GM/DL (13.0-17.0); LYMPH % 1.4 % (9.0-44.0); LYMPHOCYTE # 0.3 TH/MM3 (1.0-4.8); MEAN CELL VOLUME 83.6 FL (80.0-100.0); MEAN CORPUSCULAR HEMOGLOBIN 26.2 PG (27.0-34.0); MEAN CORPUSCULAR HGB CONC 31.3 % (32.0-36.0); MEAN PLATELET VOLUME 9.4 FL (7.0-11.0); MONO % 2.2 % (0.0-8.0); MONOCYTE # 0.4 TH/MM3 (0-0.9); NEUT % 94.8 % (16.0-70.0); PLATELET COUNT 279 TH/MM3 (150-450); RED BLOOD COUNT 3.53 MIL/MM3 (4.50-5.90); RED CELL DISTRIBUTION WIDTH 18.2 % (11.6-17.2); WHITE BLOOD COUNT 18.6 TH/MM3 (4.0-11.0)
[2017-04-03 04:48] LABS: BICARBONATE 25.6 MEQ/L (21.0-32.0); CALCIUM 8.4 MG/DL (8.5-10.1); CREATININE 6.73 MG/DL (0.60-1.30)
[2017-04-03] MEDS: RITONAVIR 100 MG TAB PO SCH ×2 (08:16→20:43)
[2017-04-03] MEDS: SODIUM CHLORIDE 0.9% FLUSH 10 ML FLUSH IV FLUSH SCH ×2 (08:17→20:43)
[2017-04-03] MEDS: DOCUSATE SODIUM 100 MG CAP PO SCH ×2 (08:17→20:43)
[2017-04-03] MEDS: ABACAVIR SULFATE 300 MG TAB PO SCH ×2 (08:17→20:43)
[2017-04-03] MEDS: CALCIUM ACETATE 667 MG CAP PO SCH ×3 (08:17→17:07)
[2017-04-03] MEDS: levETIRAcetam 250 MG TAB PO SCH ×2 (08:17→20:43)
[2017-04-03] MEDS: FOSAMPRENAVIR CALCIUM PO SCH ×2 (08:17→20:43)
--- NOTE | 2017-04-03 10:53 | HHI.PR ---
Subjective Remarks f/u for medical management patient has attitude stated "what do you want?" When I explained myself he did not say anything further. When I asked if he has any concerns. he would not answer me. Then I asked if he has any pain. he stated "yes." I asked if I could exam him and his abdomen since yesterday he was very upset when I examined his abdomen in the PACU. Patient stated, "what do you think?" I told patient I cannot help him if he does not answer questions or let me examined. He then showed me his belly when I asked its okay to exam him with stethoscope and putting pressure on his belly. He stated "NO! what do you think? I told you I was in pain so I dont want you to touch it." When I explained to patient why he continued to refuse. I told patient if he does not want to work with me by answering questions and allow me to examine him it would be difficult to care for him properly. Patient stated he did not care. Discussed case with patient's nurse. Patient remains afebrile. Objective Vitals Vital Signs Date Time Temp Pulse Resp B/P (MAP) Pulse Ox O2 Delivery O2 Flow Rate FiO2 04/03/17 10:00 124 04/03/17 08:00 119 04/03/17 08:00 98.9 114 18 84/50 (61) 100 04/03/17 06:00 127 04/03/17 04:00 118 04/03/17 03:24 100 Nasal Cannula 4.00 04/03/17 03:00 99.6 107 30 82/52 (62) 100 04/03/17 02:00 104 04/03/17 00:00 105 04/02/17 23:11 97 Nasal Cannula 4.00 04/02/17 23:00 98.8 114 30 82/48 (59) 97 04/02/17 22:00 114 04/02/17 20:00 123 04/02/17 19:49 95 Nasal Cannula 2.00 04/02/17 19:00 99.2 137 19 84/48 (60) 94 04/02/17 18:48 19 04/02/17 17:30 100.1 04/02/17 14:00 98.6 85 24 92/54 (67) 96 Room Air 04/02/17 13:30 88 14 89/54 (66) 96 04/02/17 13:00 83 13 92/50 (64) 92 04/02/17 12:45 83 20 99/57 (71) 98 04/02/17 12:30 89 13 95/50 (65) 96 04/02/17 12:15 92 13 93/51 (65) 94 04/02/17 12:00 99 11 86/50 (62) 95 04/02/17 11:45 95 15 84/46 (59) 99 04/02/17 11:38 97.6 100 18 99/57 (71) 99 Simple Mask 6 04/02/17 10:56 110 109/57 I/O 04/02/17 04/02/17 04/02/17 04/03/17 04/03/17 04/03/17 07:00 15:00 23:00 07:00 15:00 23:00 Intake Total 350 ml 290 ml 675 ml Output Total 10 ml 0 ml 0 ml Balance 340 ml 290 ml 675 ml Intake Oral 240 ml 425 ml IV Total 50 ml 250 ml Other 350 ml Output Urine Total 0 ml 0 ml Estimated Blood Loss 10 ml # Bowel Movements 0 0 Result Diagram: 04/03/17 0352 04/03/17 0352 Objective Remarks GENERAL: NAD he is resting comfortably in bed. GASTROINTESTINAL: Abdomen visually did not look distended. Patient would not let me palpate his abdomen he only allowed me to visualize his abdomen quickly. His permacath was intact. Patient is AAO 4. Patient did not allow me to examine him, so I cannot completely and exam. Medications and IVs Current Medications Lactated Ringer's 1,000 ml @ 30 mls/hr Q24H PRN IV SEE LABEL COMMENTS Last administered on 04/02/17at 09:00; Start 04/02/17 at 08:45; Stop 04/05/17 at 08:44 Sodium Chloride 500 ml @ 30 mls/hr [id number] PRN IV SEE LABEL COMMENTS; Start 04/02/17 at 08:45; Stop 04/05/17 at 08:44 Metoprolol Tartrate (Lopressor) 25 mg BELL ATTENDANT PRN PO SEE LABEL COMMENTS; Start 04/02/17 at 08:45; Stop 04/05/17 at 08:44 Povidone Iodine (Betadine 5% Antisepsis Kit) 1 applic BELL ATTENDANT PRN EACH NARE SEE LABEL COMMENTS Last administered on 04/02/17at 09:00; Start 04/02/17 at 08:45; Stop 04/05/17 at 08:44 Chlorhexidine Gluconate (Chlorhexidine 2% Cloth) 3 pack BELL ATTENDANT PRN TOPICAL SEE LABEL COMMENTS Last administered on 04/02/17at 08:45; Start 04/02/17 at 08:45; Stop 04/05/17 at 08:44 Insulin Human Regular (NovoLIN R INJ) See Protocol Table ... BELL ATTENDANT PRN SQ SEE PROTOCOL TABLE; Start 04/02/17 at 08:45; Stop 04/05/17 at 08:44 Clindamycin Phosphate/Dextrose 50 ml @ 100 mls/hr BELL ATTENDANT IV Last administered on 04/02/17at 09:55; Start 04/02/17 at 09:45; Stop 04/02/17 at 23:59; Status DC Bupivacaine HCl/ Epinephrine Bitart (Marcaine-Epi Pf 0.25% Inj) 30 ml STK-MED ONCE .ROUTE Last administered on 04/02/17at 10:30; Start 04/02/17 at 10:06; Stop 04/02/17 at 10:07; Status DC Vasopressin (Pitressin Inj) 20 units STK-MED ONCE .ROUTE Last administered on at 10:56; Start 04/02/17 at 10:51; Stop 04/02/17 at 10:52; Status DC Sodium Chloride (NS Flush) 2 ml UNSCH PRN IV FLUSH FLUSH AFTER USING IV ACCESS ; Start 04/02/17 at 11:30 Sodium Chloride (NS Flush) 2 ml BID IV FLUSH Last administered on 04/03/17at 08: 17; Start 04/02/17 at 11:30 Acetaminophen/ Hydrocodone Bitart (Drybranch 5-325 Mg) 1 tab Q4H PRN PO PAIN SCALE 1 TO 5 Last administered on 04/03/17 09:51; Start 04/02/17 at 11:30 Acetaminophen/ Hydrocodone Bitart (Drybranch 5-325 Mg) 2 tab Q4H PRN PO PAIN SCALE 6 TO 10 Last administered on 04/03/17at 02:49; Start 04/02/17 at 11:30 Ondansetron HCl (Zofran Inj) 4 mg Q4H PRN IV PUSH NAUSEA OR VOMITING; Start 04/02/17 at 11:30 Docusate Sodium (Colace) 100 mg BID PO Last administered on 04/03/17at 08:17; Start 04/02/17 at 12:00 Clindamycin Phosphate 600 mg/ Sodium Chloride 54 ml @ 108 mls/hr Q8H IV ; Start 04/02/17 at 11:30; Stop 04/03/17 at 03:59; Status UNV Miscellaneous Information (Post-op Orders (for Pharmacy)) STAT ONCE XX ; Start 04/02/17 at 11:30; Stop 04/02/17 at 11:40; Status DC Morphine Sulfate (Morphine Inj) 2 mg Q3H PRN IV PUSH BREAKTHROUGH PAIN; Start 04/02/17 at 11:45 Midazolam HCl (Versed Inj) 2 mg STK-MED ONCE .ROUTE ; Start 04/02/17 at 11:47; Stop 04/02/17 at 11:48; Status DC Fentanyl Citrate (fentaNYL INJ) 200 mcg STK-MED ONCE .ROUTE ; Start 04/02/17 at 11:47; Stop 04/02/17 at 11:48; Status DC Clindamycin/ Sodium Chloride 50 ml @ 100 mls/hr Q8H IV Last administered on 04/03/17at 09:50; Start 04/02/17 at 18:00; Stop 04/03/17 at 10:29; Status DC Miscellaneous Information ALL NURSING DEPARTME... UNSCH PRN .XX SEE LABEL COMMENTS; Start 04/02/17 at 13:00; Stop 04/03/17 at 12:59 Abacavir Sulfate (Ziagen) 300 mg BID PO Last administered on 04/03/17at 08:17; Start 04/02/17 at 21:00 Calcium Acetate (Phoslo) 1,334 mg TID PO Last administered on 04/03/17at 08:17; Start 04/02/17 at 18:00 Famotidine (Pepcid) 20 mg HS PO Last administered on 04/02/17at 21:25; Start 04/02 at 21:00 Fosamprenavir Calcium (Lexiva) 700 mg BID PO Last administered on 04/03/17at 08: 17; Start 04/02/17 at 21:00 Lamivudine (Epivir) 150 mg DAILY PO Last administered on 04/03/17at 08:17; Start 04/03/17 at 09:00 Levetriacetam (Keppra) 750 mg Q12HR PO Last administered on 04/03/17at 08:17; Start 04/02/17 at 21:00 Ritonavir (Norvir) 100 mg BID PO Last administered on 04/03/17at 08:16; Start 04/02/17 at 21:00 Sodium Chloride 250 ml @ 250 mls/hr BOLUS ONCE IV Last administered on at 22:56; Start 04/02/17 at 22:45; Stop 04/02/17 at 23:44; Status DC A/P Assessment and Plan This is a 26-year-old male who has end-stage renal disease on peritoneal dialysis who had obstruction of his catheter Permacath obstruction -Status post laparoscopic revision of PD on 04/02 cath findings include permacath obstruction encased in small bowel with adhesions, fibrous adhesion. -Management per surgeon. End-stage renal disease -Nephrology was consulted. Management per back stayer. HIV last CD4 count 275 on 02/03/2017, history of seizure disorder, history lymphoma, lower extremity amputations and left upper extremity amputation -Resume home medication. Mild hypotension -Asymptomatic. I reviewed medical records and patient trend in regards to his blood pressure. During his last admission this was his baseline. No signs of infection. -Continue to monitor clinically. I discussed case with patient's nurse. I am not able to give adequately care for patient does not want to answer any my questions or allow me to examine him. Patient is AAO 4. I explained to patient multiple times my purpose and my role in his care and he continued to not want my involvement. Avril Lewis MD Apr 03, 2017 10:53
[2017-04-03] MEDS ORDERED: VANCOMYCIN INJ 1,000 MG in SODIUM CHLOR 0.9% 250 ML INJ 250 ML IV SCH (13:15)
--- NOTE | 2017-04-03 13:34 | HHI.PR ---
Subjective Subjective Notes Resting in bed C/o abdominal pain Objective Vitals/I&O Vital Signs Date Time Temp Pulse Resp B/P (MAP) Pulse Ox O2 Delivery O2 Flow Rate FiO2 04/03/17 12:00 98.3 121 16 76/42 (53) 100 04/03/17 03:24 Nasal Cannula 4.00 Labs Laboratory Tests Test 04/02/17 16:00 04/02/17 17:00 04/02/17 19:05 04/02/17 22:16 White Blood Count 8.5 Red Blood Count 3.32 Hemoglobin 8.4 Hematocrit 27.5 Mean Corpuscular Volume 82.8 Mean Corpuscular Hemoglobin 25.3 Mean Corpuscular Hemoglobin Concent 30.6 Red Cell Distribution Width 18.1 Platelet Count 266 Mean Platelet Volume 9.1 Blood Urea Nitrogen 15 Creatinine 4.45 Random Glucose 107 Total Protein 6.7 Albumin 2.6 Calcium Level 8.1 Alkaline Phosphatase 89 Aspartate Amino Transf (AST/SGOT) 13 Alanine Aminotransferase (ALT/SGPT) 12 Total Bilirubin 0.3 Sodium Level 140 Potassium Level 3.2 Chloride Level 102 Carbon Dioxide Level 27.5 Anion Gap 11 Estimat Glomerular Filtration Rate 19 Nasal Screen MRSA (PCR) MRSA DETECTED MRSA NOT DETECTED Prothrombin Time 10.0 Prothromb Time International Ratio 1.0 Activated Partial Thromboplast Time 22.4 Test 04/03/17 03:52 White Blood Count 18.6 Red Blood Count 3.53 Hemoglobin 9.2 Hematocrit 29.5 Mean Corpuscular Volume 83.6 Mean Corpuscular Hemoglobin 26.2 Mean Corpuscular Hemoglobin Concent 31.3 Red Cell Distribution Width 18.2 Platelet Count 279 Mean Platelet Volume 9.4 Neutrophils (%) (Auto) 94.8 Lymphocytes (%) (Auto) 1.4 Monocytes (%) (Auto) 2.2 Eosinophils (%) (Auto) 1.4 Basophils (%) (Auto) 0.2 Neutrophils # (Auto) 17.6 Lymphocytes # (Auto) 0.3 Monocytes # (Auto) 0.4 Eosinophils # (Auto) 0.3 Basophils # (Auto) 0.0 CBC Comment DIFF FINAL Differential Comment Blood Urea Nitrogen 23 Creatinine 6.73 Random Glucose 82 Calcium Level 8.4 Sodium Level 134 Potassium Level 5.2 Chloride Level 98 Carbon Dioxide Level 25.6 Anion Gap 10 Estimat Glomerular Filtration Rate 12 Date/Time Source Procedure Growth Status 04/02/17 11:08 Wound Other Gram Stain - Final Resulted 04/02/17 11:08 Wound Other Wound Culture - Preliminary NO GROWTH IN 24 HOURS. Resulted Cardiovascular: Regular Lungs: Clear Abdomen: Other (PD cath present; lap sites c/d/i; soft; tender on RIGHT flank ) Extremities: No edema Narrative Exam multiple amputations A/P Assessment and Plan 26 year old male POD1 PD cath revision -Await wound culture -Tachycardic; hypotensive overnight -BC x2 -Vanco 1 gram after BC drawn -Consult to [facility]----spoke with Dr. 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 I reviewed and agree with the findings presented. I attest that I had a [id number] encounter with the patient on the same day, and personally performed and documented my assessment and findings in the medical record. Miri Heller Apr 03, 2017 13:34 Sen Goins MD Apr 04, 2017 08:02
[2017-04-03] MEDS ORDERED: VANCOMYCIN INJ 1,000 MG in SODIUM CHLOR 0.9% 250 ML INJ 250 ML IV ONE (14:30)
[2017-04-03] MEDS ORDERED: LEVOFLOXACIN 750 MG PREMIX INJ 150 ML IV ONE (15:00)
--- NOTE | 2017-04-03 15:13 | HHI.NPPN ---
Subjective History of Present Illness 26 year old with PD catheter change Additional Remarks in ICU due to sepsis Abd pain Review of Systems General Constitutional: Fever, Fatigue Gastrointestinal Gastrointestinal: Abdominal Pain Objective Data Data 04/03/17 04/04/17 19:00 07:00 Intake Total 50 ml Balance 50 ml IV Total 50 ml Vital Signs Date Time Temp Pulse Resp B/P (MAP) Pulse Ox O2 Delivery O2 Flow Rate FiO2 04/03/17 14:00 117 04/03/17 12:00 98.3 121 16 76/42 (53) 100 04/03/17 12:00 122 04/03/17 10:00 124 04/03/17 08:00 119 04/03/17 08:00 98.9 114 18 84/50 (61) 100 04/03/17 06:00 127 04/03/17 04:00 118 04/03/17 03:24 100 Nasal Cannula 4.00 04/03/17 03:00 99.6 107 30 82/52 (62) 100 04/03/17 02:00 104 04/03/17 00:00 105 04/02/17 23:11 97 Nasal Cannula 4.00 04/02/17 23:00 98.8 114 30 82/48 (59) 97 04/02/17 22:00 114 04/02/17 20:00 123 04/02/17 19:49 95 Nasal Cannula 2.00 04/02/17 19:00 99.2 137 19 84/48 (60) 94 04/02/17 18:48 19 04/02/17 17:30 100.1 -: 04/03/17 0352 04/03/17 0352 Microbiology 04/03/17 Aerobic Blood Culture, Received Pending 04/03/17 Anaerobic Blood Culture, Received Pending 04/03/17 Aerobic Blood Culture, Received Pending 04/03/17 Anaerobic Blood Culture, Received Pending Physical Exam General Appearance: Well Developed Neck Neck Exam: Neck Supple Pulmonary Resp Exam: Clear Bilaterally Cardiology CV Exam: Tachycardia Gastrointestinal/Abdomen GI Exam: Soft GI Remarks tender Extremeties Extremeties Remarks multiple amputation Assessment/Plan Problem List: (1) ESRD (end stage renal disease) on dialysis ICD Codes: N18.6 - End stage renal disease; Z99.2 - Dependence on renal dialysis Plan: Patient blood pressures low sepsis started on Levaquin/metronidazole/ and clindamycin stopped CT scan can be coordinated in am prior to hemodialysis d/w staff next HD in am (2) HIV (human immunodeficiency virus infection) ICD Codes: Z21 - Asymptomatic human immunodeficiency virus [HIV] infection status Status: Chronic Plan: He is on outpatient medications (3) Peritoneal dialysis catheter dysfunction ICD Codes: T85.611A - Breakdown (mechanical) of intraperitoneal dialysis catheter, initial encounter Plan: Replaced Mireya Eduardo MD Apr 03, 2017 15:13
[2017-04-03] MEDS ORDERED: DIATRIZOATE MEGLUM/DIATRIZOATE SOD 9 ML CUP PO ONE (15:45)
--- NOTE | 2017-04-03 15:46 | PD.CONS ---
HPI Service Critical Care Medicine Consult Requested By Dr. Goins Primary Care Physician No Primary Care Physician History of Present Illness History of Present Illness Patient is a 26 with history of ESRD on peritoneal dialysis, HIV, and s/p amputations of limbs who was admitted secondary to peritoneal dialysis catheter being obstructed. Patient had laparoscopic revision of PD cath by Dr. Goins on 04/02. Postoperatively patient was hypotensive in PACU. He subsequently underwent hemodialysis and was transferred to the ICU. Overnight patient has remained tachycardic and developed low blood pressures with systolic in the 80s. He is otherwise awake and alert denies any chest pain or shortness of breath. Denies any fevers or chills. Denies any nausea or vomiting. He has been complaining of significant right sided lower abdominal pain following his surgery. Critical care medicine consulted by Dr. Goins for hypotension and tachycardia. Patient was also noted to have leukocytosis today raising concern for sepsis. When I evaluated the patient he was laying in bed complaining of right sided abdominal pain. Blood cultures were ordered and patient was initiated on IV vancomycin, Levaquin and Flagyl for empiric antibiotic coverage. He did receive a fluid bolus earlier with normal saline. ROS - General Review of Systems As per history of present illness PFSH Past Family Social History Allergies: Coded Allergies: amoxicillin (Verified Allergy, Severe, rash all over, 04/02/17) penicillin G (Verified Allergy, Severe, Anaphylaxis, 04/02/17) Past Medical History End-stage renal disease on peritoneal dialysis History of lymphoma Bilateral amputations of the lower extremities Left upper extremity amputation HIV, last CD4 cell count 275 on 02/03/17 Seizure disorder Past Surgical History Permacath Bilateral lower and left upper extremity amputations at age 12 Splenectomy Reported Medications Reported Meds & Active Scripts Active Calcium Acetate (Calcium Acetate (Phosphate Bin) 667 Mg Cap 1,334 Mg PO TID Norvir (Ritonavir) 100 Mg Cap 100 Mg PO BID Epivir (Lamivudine) 150 Mg Tab 150 Mg PO DAILY *Fill this 5 day prescription first and begin taking Epivir 12 hours after the first dose received in the Emergency Department as prescribed.* Lexiva (Fosamprenavir Calcium) 700 Mg Tab 1 Tab PO BID Ziagen (Abacavir Sulfate) 300 Mg Tab 300 Mg PO BID Hazardous agent; use appropriate precautions for handling & disposal. Keppra (Levetiracetam) 250 Mg Tab 750 Mg PO Q12HR Famotidine 20 Mg Tab 20 Mg PO HS Active Ordered Medications Current Medications Lactated Ringer's 1,000 ml @ 30 mls/hr Q24H PRN IV SEE LABEL COMMENTS Last administered on 04/02/17at 09:00; Start 04/02/17 at 08:45; Stop 04/05/17 at 08:44 Sodium Chloride 500 ml @ 30 mls/hr [id number] PRN IV SEE LABEL COMMENTS; Start 04/02/17 at 08:45; Stop 04/05/17 at 08:44 Metoprolol Tartrate (Lopressor) 25 mg DATA MIGRATION CONSULTANT PRN PO SEE LABEL COMMENTS; Start 04/02/17 at 08:45; Stop 04/05/17 at 08:44 Povidone Iodine (Betadine 5% Antisepsis Kit) 1 applic DATA MIGRATION CONSULTANT PRN EACH NARE SEE LABEL COMMENTS Last administered on 04/02/17at 09:00; Start 04/02/17 at 08:45; Stop 04/05/17 at 08:44 Chlorhexidine Gluconate (Chlorhexidine 2% Cloth) 3 pack DATA MIGRATION CONSULTANT PRN TOPICAL SEE LABEL COMMENTS Last administered on 04/02/17at 08:45; Start 04/02/17 at 08:45; Stop 04/05/17 at 08:44 Insulin Human Regular (NovoLIN R INJ) See Protocol Table ... DATA MIGRATION CONSULTANT PRN SQ SEE PROTOCOL TABLE; Start 04/02/17 at 08:45; Stop 04/05/17 at 08:44 Clindamycin Phosphate/Dextrose 50 ml @ 100 mls/hr DATA MIGRATION CONSULTANT IV Last administered on 04/02/17at 09:55; Start 04/02/17 at 09:45; Stop 04/02/17 at 23:59; Status DC Bupivacaine HCl/ Epinephrine Bitart (Marcaine-Epi Pf 0.25% Inj) 30 ml STK-MED ONCE .ROUTE Last administered on 04/02/17at 10:30; Start 04/02/17 at 10:06; Stop 04/02/17 at 10:07; Status DC Vasopressin (Pitressin Inj) 20 units STK-MED ONCE .ROUTE Last administered on at 10:56; Start 04/02/17 at 10:51; Stop 04/02/17 at 10:52; Status DC Sodium Chloride (NS Flush) 2 ml UNSCH PRN IV FLUSH FLUSH AFTER USING IV ACCESS ; Start 04/02/17 at 11:30 Sodium Chloride (NS Flush) 2 ml BID IV FLUSH Last administered on 04/03/17at 08: 17; Start 04/02/17 at 11:30 Acetaminophen/ Hydrocodone Bitart (Chester 5-325 Mg) 1 tab Q4H PRN PO PAIN SCALE 1 TO 5 Last administered on 04/03/17at 09:51; Start 04/02/17 at 11:30 Acetaminophen/ Hydrocodone Bitart (Chester 5-325 Mg) 2 tab Q4H PRN PO PAIN SCALE 6 TO 10 Last administered on 04/03/17at 02:49; Start 04/02/17 at 11:30 Ondansetron HCl (Zofran Inj) 4 mg Q4H PRN IV PUSH NAUSEA OR VOMITING; Start 04/02/17 at 11:30 Docusate Sodium (Colace) 100 mg BID PO Last administered on 04/03/17at 08:17; Start 04/02/17 at 12:00 Clindamycin Phosphate 600 mg/ Sodium Chloride 54 ml @ 108 mls/hr Q8H IV ; Start 04/02/17 at 11:30; Stop 04/03/17 at 03:59; Status UNV Miscellaneous Information (Post-op Orders (for Pharmacy)) STAT ONCE XX ; Start 04/02/17 at 11:30; Stop 04/02/17 at 11:40; Status DC Morphine Sulfate (Morphine Inj) 2 mg Q3H PRN IV PUSH BREAKTHROUGH PAIN; Start 04/02/17 at 11:45 Midazolam HCl (Versed Inj) 2 mg STK-MED ONCE .ROUTE ; Start 04/02/17 at 11:47; Stop 04/02/17 at 11:48; Status DC Fentanyl Citrate (fentaNYL INJ) 200 mcg STK-MED ONCE .ROUTE ; Start 04/02/17 at 11:47; Stop 04/02/17 at 11:48; Status DC Clindamycin/ Sodium Chloride 50 ml @ 100 mls/hr Q8H IV Last administered on 04/03/17at 09:50; Start 04/02/17 at 18:00; Stop 04/03/17 at 10:29; Status DC Miscellaneous Information ALL NURSING DEPARTME... UNSCH PRN .XX SEE LABEL COMMENTS; Start 04/02/17 at 13:00; Stop 04/03/17 at 12:59; Status DC Abacavir Sulfate (Ziagen) 300 mg BID PO Last administered on 04/03/17at 08:17; Start 04/02/17 at 21:00 Calcium Acetate (Phoslo) 1,334 mg TID PO Last administered on 04/03/17at 12:48; Start 04/02/17 at 18:00 Famotidine (Pepcid) 20 mg HS PO Last administered on 04/02/17at 21:25; Start 04/02 at 21:00 Fosamprenavir Calcium (Lexiva) 700 mg BID PO Last administered on 04/03/17at 08: 17; Start 04/02/17 at 21:00 Lamivudine (Epivir) 150 mg DAILY PO Last administered on 04/03/17at 08:17; Start 04/03/17 at 09:00 Levetriacetam (Keppra) 750 mg Q12HR PO Last administered on 04/03/17at 08:17; Start 04/02/17 at 21:00 Ritonavir (Norvir) 100 mg BID PO Last administered on 04/03/17at 08:16; Start 04/02/17 at 21:00 Sodium Chloride 250 ml @ 250 mls/hr BOLUS ONCE IV Last administered on at 22:56; Start 04/02/17 at 22:45; Stop 04/02/17 at 23:44; Status DC Vancomycin HCl 1000 mg/Sodium Chloride 250 ml @ 250 mls/hr Q24H IV ; Start 04/03 at 13:15; Stop 04/03/17 at 13:35; Status DC Vancomycin HCl 1000 mg/Sodium Chloride 250 ml @ 250 mls/hr ONCE ONCE IV Last administered on 04/03/17at 14:49; Start 04/03/17 at 14:30; Stop 04/03/17 at 15:29 Levofloxacin/ Dextrose 150 ml @ 100 mls/hr ONCE ONCE IV ; Start 04/03/17 at 15: 00; Stop 04/03/17 at 16:29; Status UNV Levofloxacin/ Dextrose 100 ml @ 100 mls/hr Q48H IV ; Start 04/05/17 at 15:00; Status UNV Metronidazole 100 ml @ 100 mls/hr Q8H IV ; Start 04/03/17 at 15:00; Status UNV Family History Denies family history of heart disease or diabetes mellitus. Social History Denies tobacco, alcohol and illicit drugs. Physical Exam Vital Signs Vital Signs Date Time Temp Pulse Resp B/P (MAP) Pulse Ox O2 Delivery O2 Flow Rate FiO2 04/03/17 14:00 117 04/03/17 12:00 98.3 121 16 76/42 (53) 100 04/03/17 12:00 122 04/03/17 10:00 124 04/03/17 08:00 119 04/03/17 08:00 98.9 114 18 84/50 (61) 100 04/03/17 06:00 127 04/03/17 04:00 118 04/03/17 03:24 100 Nasal Cannula 4.00 04/03/17 03:00 99.6 107 30 82/52 (62) 100 04/03/17 02:00 104 04/03/17 00:00 105 04/02/17 23:11 97 Nasal Cannula 4.00 04/02/17 23:00 98.8 114 30 82/48 (59) 97 04/02/17 22:00 114 04/02/17 20:00 123 04/02/17 19:49 95 Nasal Cannula 2.00 04/02/17 19:00 99.2 137 19 84/48 (60) 94 04/02/17 18:48 19 04/02/17 17:30 100.1 Physical Exam HEENT/Neuro: Pallor present, No icterus, tongue moist, WSET, Awake alert oriented 3, nonfocal grossly, moving all extremities Neck: No JVD Chest/pulmonary: CTA bilaterally Cardiovascular: S1-S2 regular no gallop or murmur GI/abdomen: Soft, tenderness in right lower quadrant with minimal guarding, bowel sounds not appreciated Extremities: Warm bilaterally, no edema. Bilateral lower extremity amputations , left upper extremity amputation noted. Laboratory Laboratory Tests Test 04/02/17 16:00 04/02/17 17:00 04/02/17 19:05 04/02/17 22:16 White Blood Count 8.5 Red Blood Count 3.32 Hemoglobin 8.4 Hematocrit 27.5 Mean Corpuscular Volume 82.8 Mean Corpuscular Hemoglobin 25.3 Mean Corpuscular Hemoglobin Concent 30.6 Red Cell Distribution Width 18.1 Platelet Count 266 Mean Platelet Volume 9.1 Blood Urea Nitrogen 15 Creatinine 4.45 Random Glucose 107 Total Protein 6.7 Albumin 2.6 Calcium Level 8.1 Alkaline Phosphatase 89 Aspartate Amino Transf (AST/SGOT) 13 Alanine Aminotransferase (ALT/SGPT) 12 Total Bilirubin 0.3 Sodium Level 140 Potassium Level 3.2 Chloride Level 102 Carbon Dioxide Level 27.5 Anion Gap 11 Estimat Glomerular Filtration Rate 19 Nasal Screen MRSA (PCR) MRSA DETECTED MRSA NOT DETECTED Prothrombin Time 10.0 Prothromb Time International Ratio 1.0 Activated Partial Thromboplast Time 22.4 Test 04/03/17 03:52 White Blood Count 18.6 Red Blood Count 3.53 Hemoglobin 9.2 Hematocrit 29.5 Mean Corpuscular Volume 83.6 Mean Corpuscular Hemoglobin 26.2 Mean Corpuscular Hemoglobin Concent 31.3 Red Cell Distribution Width 18.2 Platelet Count 279 Mean Platelet Volume 9.4 Neutrophils (%) (Auto) 94.8 Lymphocytes (%) (Auto) 1.4 Monocytes (%) (Auto) 2.2 Eosinophils (%) (Auto) 1.4 Basophils (%) (Auto) 0.2 Neutrophils # (Auto) 17.6 Lymphocytes # (Auto) 0.3 Monocytes # (Auto) 0.4 Eosinophils # (Auto) 0.3 Basophils # (Auto) 0.0 CBC Comment DIFF FINAL Differential Comment Blood Urea Nitrogen 23 Creatinine 6.73 Random Glucose 82 Calcium Level 8.4 Sodium Level 134 Potassium Level 5.2 Chloride Level 98 Carbon Dioxide Level 25.6 Anion Gap 10 Estimat Glomerular Filtration Rate 12 Date/Time Source Procedure Growth Status 04/03/17 14:30 Blood Peripheral Aerobic Blood Culture Pending Received 04/03/17 14:30 Blood Peripheral Anaerobic Blood Culture Pending Received 04/02/17 11:08 Wound Other Gram Stain - Final Resulted 04/02/17 11:08 Wound Other Wound Culture - Preliminary NO GROWTH IN 24 HOURS. Resulted Result Diagram: 04/03/17 0352 04/03/17 0352 Assessment and Plan Assessment and Plan Hypotension Tachycardia Leukocytosis Suspected sepsis Nonfunctioning PD catheter status post revision 04/02 ESRD on hemodialysis HIV History of splenectomy H/o seizure H/o lymphoma Plan: Neuro: Follow neuro status. Pain medications as needed. Continue Keppra Cardiovascular: Receive 250 cc and is bolus earlier. Suspect hypotension secondary to sepsis/SIRS. We will consider additional fluids versus initiation of pressors if patient becomes symptomatic. Pulmonary: Supplemental O2 as needed. GI/liver: We'll obtain KUB and CT abdomen pelvis with oral and IV contrast for further evaluation of right flank pain and suspected sepsis. By mouth diet as tolerated. Renal/: On hemodialysis per nephrology. PD catheter revised on 04/[address] Goins. Scheduled for hemodialysis for 04/04. ID: Continue current HIV regimen. Awaiting CT abdomen pelvis for further evaluation of right flank pain. Empiric antibiotic coverage with IV vancomycin 1 dose followed by Levaquin/Flagyl IV. Blood cultures 2 ordered on 04/03. Heme: Follow CBC Endocrine: SSI for glycemic control if needed Prophylaxis: Start subcutaneous heparin for DVT prophylaxis when OK with Dr. Goins. Discussed with Dr. Goins earlier. Further recommendations per nephrology Condition critical with hypotension with suspected severe sepsis/SIRS. Time for on critical care excluding procedures 60 minutes Camden Castro MD Apr 03, 2017 15:46
--- NOTE | 2017-04-03 16:19 | RADRPT ---
EXAM DATE/TIME: 04/03/2017 15:25 [facility] COMPARISON: No previous studies available for comparison. INDICATIONS : Right flank pain. MEDICAL HISTORY : Lymphoma. HIV. Renal failure, acute.Dialysis SURGICAL HISTORY : Bilateral leg amutation and left arm. ENCOUNTER: Subsequent ACUITY: 2 days PAIN SCORE: 8/10 LOCATION: Bilateral Abdomen. FINDINGS: Supine view of the abdomen was performed. The abdominal bowel gas pattern is normal. No abnormal ma sses, calcifications, or organomegaly is seen. The osseous structures are unremarkable. Peritoneal d ialysis catheter is present in the right upper quadrant. CONCLUSION: 1. No evidence of obstruction. Oliver Perez MD on April 03, 2017 at 16:17 Board Certified Radiologist. This report was verified electronically.
[2017-04-03] MEDS: metroNIDAZOLE 500 MG INJ 100 ML IV SCH ×2 (17:08→23:04)
[2017-04-03] MEDS ORDERED: IOHEXOL 350 MG/ML 10 ML VIAL (for RAD DIAG) IVCONTRAST ONE (19:54)
--- NOTE | 2017-04-03 20:15 | RADRPT ---
EXAM DATE/TIME: 04/03/2017 19:47 [facility] COMPARISON: No previous studies available for comparison. INDICATIONS : Right flank pain and sepsis. IV CONTRAST: 70 cc Omnipaque 350 (iohexol) IV ORAL CONTRAST: Prescribed oral contrast ingested. RADIATION DOSE: 6.29 CTDIvol (mGy) MEDICAL HISTORY : HIV. Renal failure, chronic. liver disease, lymphoma, gallstones SURGICAL HISTORY : bilateral BKA, left lower arm amputation ENCOUNTER: Initial ACUITY: 1 day PAIN SCALE: 7/10 LOCATION: Right flank abdomen TECHNIQUE: Volumetric scanning of the abdomen and pelvis was performed. Using automated exposure control and ad justment of the mA and/or kV according to patient size, radiation dose was kept as low as reasonably achievable to obtain optimal diagnostic quality images. DICOM format image data is available electro nically for review and comparison. FINDINGS: There is bibasilar airspace disease with some air bronchograms posteriorly. Trace pleural fluid on th e right and left. Mild fatty liver. Numerous calcified gallstones. Previous splenectomy. Atrophic kidneys. Adrenals and pancreas unremarkable. There is a right sided peritoneal dialysis catheter. There is some subcutaneous air in anterior abdom inal wall. No bowel obstruction. No free air. Trace free fluid in the pelvis. No acute bony abnormalities. CONCLUSION: 1. Basilar airspace disease in the lungs with some air bronchograms and trace pleural fluid. 2. Atrophic kidneys. Previous splenectomy. 3. Numerous gallstones without biliary ductal dilatation. 4. Peritoneal dialysis catheter with several locules of subcutaneous air in anterior abdominal wall. 5. Mildly enlarged inguinal lymph nodes bilaterally. Rosas Wood MD on April 03, 2017 at 20:08 Board Certified Radiologist. This report was verified electronically.
[2017-04-03] MEDS: FAMOTIDINE 20 MG TAB PO SCH (20:43)
[2017-04-03] MEDS ORDERED: MIDODRINE 5 MG TAB PO ONE (20:45)
[2017-04-03] MEDS ORDERED: SODIUM CHLORID 0.9% 500 ML INJ 500 ML IV ONE (21:00)
[2017-04-03] MEDS ORDERED: ALBUMIN 25% INJ 100 ML IV ONE (21:00)
--- NOTE | 2017-04-03 22:54 | EKG ---
Date Performed: 04/02/2017 Time Performed: 16:20:07 PTAGE: 26 years EKG: SINUS TACHYCARDIA, POSSIBLE ATRIAL FLUTTER NONSPECIFIC T-WAVE ABNORMALITY ABNORMAL RHYTHM E CG PREVIOUS TRACING : 01/19/2017 01.03 DOCTOR: Robert Castano Interpretating Date/Time 04/03/2017 22:53:57
[2017-04-04] VITALS (19 sets, daily range): BP systolic 77–112; BP diastolic 40–70; PULSE 90–122; RESP 19–33; TEMP 97.5–100.5; O2SAT 93–100
[2017-04-04] MEDS: ACETAMINOPHEN/HYDROcodone 325 MG/5 MG TAB PO PRN ×3 (01:04→23:05)
[2017-04-04] MEDS: metroNIDAZOLE 500 MG INJ 100 ML IV SCH ×3 (07:17→23:05)
[2017-04-04 07:19] LABS: AUTOMATED NEUTROPHIL # 14.9 TH/MM3 (1.8-7.7); BASOPHIL # 0.1 TH/MM3 (0-0.2); BASOPHIL % 0.7 % (0.0-2.0); EOSINOPHIL # 0.5 TH/MM3 (0-0.4); EOSINOPHIL % 3.1 % (0.0-4.0); HEMATOCRIT 22.4 % (39.0-51.0); LYMPH % 8.4 % (9.0-44.0); LYMPHOCYTE # 1.5 TH/MM3 (1.0-4.8); MEAN CELL VOLUME 82.6 FL (80.0-100.0); MEAN CORPUSCULAR HEMOGLOBIN 25.2 PG (27.0-34.0); MEAN CORPUSCULAR HGB CONC 30.5 % (32.0-36.0); MEAN PLATELET VOLUME 8.5 FL (7.0-11.0); MONO % 4.6 % (0.0-8.0); MONOCYTE # 0.8 TH/MM3 (0-0.9); NEUT % 83.2 % (16.0-70.0); PLATELET COUNT 192 TH/MM3 (150-450); RED BLOOD COUNT 2.71 MIL/MM3 (4.50-5.90); WHITE BLOOD COUNT 17.9 TH/MM3 (4.0-11.0)
[2017-04-04 07:27] LABS: HEMOGLOBIN 6.8 GM/DL (13.0-17.0)
[2017-04-04 08:02] LABS: ALBUMIN 2.6 GM/DL (3.4-5.0); ALKALINE PHOSPHATASE 116 U/L (45-117); ALT (GPT) 16 U/L (12-78); AST (GOT) 24 U/L (15-37); BICARBONATE 21.2 MEQ/L (21.0-32.0); BLOOD UREA NITROGEN 42 MG/DL (7-18); CALCIUM 8.3 MG/DL (8.5-10.1); CHLORIDE 94 MEQ/L (98-107); GLOMERULAR FILTRATION RATE 9 ML/MIN (>89); GLUCOSE,RANDOM 78 MG/DL (74-106); SODIUM (NA) 129 MEQ/L (136-145); TOTAL BILIRUBIN ADULT 0.5 MG/DL (0.2-1.0)
[2017-04-04] MEDS ORDERED: SODIUM CHLOR 0.9% 250 ML INJ 250 ML IV ONE (08:30)
[2017-04-04] MEDS ORDERED: NITROGLYCERIN 0.4 MG SL 25 TABS/BTL SL PRN ×2 (09:15→09:30)
[2017-04-04] MEDS ORDERED: diphenhydrAMINE HCL 25 MG CAP PO PRN ×2 (09:15→09:30)
[2017-04-04] MEDS ORDERED: cloNIDine HCL 0.1 MG TAB PO PRN ×2 (09:15→09:30)
[2017-04-04] MEDS ORDERED: ONDANSETRON HCL 4 MG/2 ML VIAL IV PUSH PRN ×2 (09:15→09:30)
[2017-04-04] MEDS ORDERED: SODIUM CHLOR 0.9% 1000 ML OTHER PRN ×2 (09:15)
[2017-04-04] MEDS ORDERED: ACETAMINOPHEN 325 MG TAB PO PRN ×2 (09:15→09:30)
[2017-04-04] MEDS ORDERED: HEPARIN SODIUM - IV 10,000 UNITS/10 ML VIAL IV FLUSH PRN ×2 (09:15→09:30)
[2017-04-04] MEDS ORDERED: NS 250 ML IV PRN (09:15)
[2017-04-04] MEDS ORDERED: SODIUM CHLORIDE 0.9% FLUSH 10 ML FLUSH IV FLUSH PRN ×2 (09:15→09:30)
[2017-04-04] MEDS ORDERED: MANNITOL 12.5 GM/50 ML VIAL IV PUSH PRN (09:15)
[2017-04-04] MEDS ORDERED: GENTAMICIN SULFATE (DIALYSIS USE ONLY) 20 MG/2 ML VIAL OTHER PRN (09:15)
[2017-04-04] MEDS ORDERED: GELATIN 12 MM/7 MM FOAM TOPICAL PRN (09:15)
[2017-04-04] MEDS ORDERED: HEPARIN SODIUM - IV 10,000 UNITS/10 ML VIAL OTHER PRN (09:15)
[2017-04-04] MEDS ORDERED: ALBUMIN 25% 25 GM/100 ML BAG IV PRN (09:15)
[2017-04-04] MEDS ORDERED: SODIUM CHLOR 0.9% 1000 ML INJ 1,000 ML OTHER PRN (09:29)
[2017-04-04] MEDS ORDERED: SODIUM CHLOR 0.9% 1000 ML INJ 1,000 ML IV PRN (09:29)
[2017-04-04] MEDS ORDERED: GELATIN 12 MM/7 MM FOAM TOP PRN (09:30)
[2017-04-04] MEDS ORDERED: MANNITOL 12.5 GM/50 ML VIAL IV PRN (09:30)
[2017-04-04] MEDS ORDERED: EPOETIN ALFA 10,000 UNITS/ML VIAL IV PUSH PRN (09:30)
[2017-04-04] MEDS ORDERED: ALBUMIN 25% INJ 100 ML IV PRN (09:30)
--- NOTE | 2017-04-04 11:00 | HHI.NPPN ---
Subjective History of Present Illness 26 year old with PD catheter change Additional Remarks in ICU due to sepsis Abd pain Review of Systems General Constitutional: Fever, Fatigue Gastrointestinal Gastrointestinal: Abdominal Pain Objective Data Data 04/04/17 04/05/17 19:00 07:00 Intake Total 50 ml Balance 50 ml Blood Product IV Normal Saline Flush 50 ml Vital Signs Date Time Temp Pulse Resp B/P (MAP) Pulse Ox O2 Delivery O2 Flow Rate FiO2 04/04/17 09:33 95 Nasal Cannula 2.00 04/04/17 06:00 114 04/04/17 04:00 98.6 117 28 82/46 (58) 98 04/04/17 04:00 117 04/04/17 03:13 100 Nasal Cannula 2.00 04/04/17 02:00 115 04/04/17 00:00 120 04/04/17 00:00 100.5 120 24 77/40 (52) 100 04/03/17 23:23 98 Nasal Cannula 2.00 04/03/17 22:00 120 04/03/17 20:00 100.0 128 25 80/45 (57) 95 04/03/17 20:00 128 04/03/17 18:00 130 04/03/17 16:00 98.9 123 22 105/53 (70) 99 04/03/17 16:00 123 04/03/17 14:00 117 04/03/17 12:00 98.3 121 16 76/42 (53) 100 04/03/17 12:00 122 -: 04/04/17 0700 04/04/17 0700 Microbiology 04/03/17 Aerobic Blood Culture, Received Pending 04/03/17 Anaerobic Blood Culture, Received Pending 04/03/17 Aerobic Blood Culture, Received Pending 04/03/17 Anaerobic Blood Culture, Received Pending Physical Exam General Appearance: Well Developed Neck Neck Exam: Neck Supple Pulmonary Resp Exam: Clear Bilaterally Cardiology CV Exam: Tachycardia Gastrointestinal/Abdomen GI Exam: Soft GI Remarks tender Extremeties Extremeties Remarks multiple amputation Assessment/Plan Problem List: (1) ESRD (end stage renal disease) on dialysis ICD Codes: N18.6 - End stage renal disease; Z99.2 - Dependence on renal dialysis Plan: Patient blood pressures low sepsis started on Levaquin/metronidazole/ CT scan done [facility] progress noted UF 1 L 2 U PRBC follow ok to have central line (2) HIV (human immunodeficiency virus infection) ICD Codes: Z21 - Asymptomatic human immunodeficiency virus [HIV] infection status Status: Chronic Plan: He is on outpatient medications (3) Peritoneal dialysis catheter dysfunction ICD Codes: T85.611A - Breakdown (mechanical) of intraperitoneal dialysis catheter, initial encounter Plan: Replaced Mireya Eduardo MD Apr 04, 2017 11:00
[2017-04-04] MEDS: HEPARIN SODIUM - IV 10,000 UNITS/10 ML VIAL PRN (11:03)
--- NOTE | 2017-04-04 11:03 | HHI.CCPN ---
Subjective Remarks/Hospital Course 04/03: Patient is a 26 with history of ESRD on peritoneal dialysis, HIV, and s/p amputations of limbs who was admitted secondary to peritoneal dialysis catheter being obstructed. Patient had laparoscopic revision of PD cath by Dr. Goins on 04/02. Postoperatively patient was hypotensive in PACU. He subsequently underwent hemodialysis and was transferred to the ICU. Overnight patient has remained tachycardic and developed low blood pressures with systolic in the 80s. He is otherwise awake and alert denies any chest pain or shortness of breath. Denies any fevers or chills. Denies any nausea or vomiting. He has been complaining of significant right sided lower abdominal pain following his surgery. Critical care medicine consulted by Dr. Goins for hypotension and tachycardia. Patient was also noted to have leukocytosis today raising concern for sepsis. When I evaluated the patient he was laying in bed complaining of right sided abdominal pain. Blood cultures were ordered and patient was initiated on IV vancomycin, Levaquin and Flagyl for empiric antibiotic coverage. He did receive a fluid bolus earlier with normal saline. 04/04: Resting in bed. Complains of persistent right lower abdominal pain. CT abdomen pelvis done last night did not reveal any evidence of free air or other acute pathology except postop changes related to PD catheter placement. Objective Vital Signs Date Time Temp Pulse Resp B/P (MAP) Pulse Ox O2 Delivery O2 Flow Rate FiO2 04/04/17 09:33 95 Nasal Cannula 2.00 04/04/17 06:00 114 04/04/17 04:00 98.6 28 82/46 (58) Intake and Output 04/04/17 04/04/17 04/05/17 08:00 16:00 00:00 Intake Total 340 ml 50 ml Output Total 500 ml Balance -160 ml 50 ml Result Diagram: 04/04/17 0700 04/04/17 0700 Objective Remarks HEENT/Neuro: Pallor present, No icterus, tongue moist, WEST, Awake alert oriented 3, nonfocal grossly, moving all extremities Neck: No JVD Chest/pulmonary: CTA bilaterally Cardiovascular: S1-S2 regular no gallop or murmur GI/abdomen: Soft, tenderness in right lower quadrant with minimal guarding, bowel sounds not appreciated Extremities: Warm bilaterally, no edema. Bilateral lower extremity amputations , left upper extremity amputation noted. A/P Assessment and Plan Hypotension Tachycardia Leukocytosis Suspected sepsis Nonfunctioning PD catheter status post revision 04/02 Anemia ESRD on hemodialysis HIV History of splenectomy H/o seizure H/o lymphoma Plan: Neuro: Follow neuro status. Pain medications as needed. Continue Keppra Cardiovascular: Receive 250 cc NS bolus on 04/03. Suspect hypotension secondary to sepsis/SIRS. Pulmonary: Supplemental O2 as needed. GI/liver: KUB and CT abdomen pelvis with oral and IV contrast for further evaluation of right flank pain and suspected sepsis reviewed as above. By mouth diet as tolerated. Renal/: On hemodialysis per nephrology. PD catheter revised on 04/[address] Goins. Scheduled for hemodialysis for 04/04. ID: Continue current HIV regimen. s/p CT abdomen pelvis for further evaluation of right flank pain which was unremarkable. Empiric antibiotic coverage with IV vancomycin 1 dose followed by Levaquin/Flagyl IV. Blood cultures 2 ordered on 04/03. Heme: Follow CBC. Ordered 2 units PRBCs to be transfused hemodialysis on 04/04 for hemoglobin 6.8 in view of hypotension. Endocrine: SSI for glycemic control if needed Prophylaxis: Start subcutaneous heparin for DVT prophylaxis when OK with Dr. Goins. Discussed with Dr. Goins on 04/03. Further recommendations per nephrology Condition critical with hypotension with suspected severe sepsis/SIRS. Time for on critical care excluding procedures 30 minutes Camden Castro MD Apr 04, 2017 11:03
[2017-04-04] MEDS: GENTAMICIN SULFATE (DIALYSIS USE ONLY) 20 MG/2 ML VIAL OTHER PRN (11:04)
[2017-04-04] MEDS: SODIUM CHLOR 0.9% 1000 ML INJ 1,000 ML OTHER PRN (11:05)
[2017-04-04] MEDS: FOSAMPRENAVIR CALCIUM PO SCH ×2 (12:24→20:18)
[2017-04-04] MEDS: DOCUSATE SODIUM 100 MG CAP PO SCH ×2 (12:24→20:17)
[2017-04-04] MEDS: FAMOTIDINE 20 MG TAB PO SCH ×2 (12:25→20:18)
[2017-04-04] MEDS: CALCIUM ACETATE 667 MG CAP PO SCH ×3 (12:25→18:00)
[2017-04-04] MEDS: levETIRAcetam 250 MG TAB PO SCH ×2 (12:25→20:17)
[2017-04-04] MEDS: ABACAVIR SULFATE 300 MG TAB PO SCH ×2 (12:25→20:18)
[2017-04-04] MEDS: RITONAVIR 100 MG TAB PO SCH ×2 (12:25→20:19)
[2017-04-04] MEDS: SODIUM CHLORIDE 0.9% FLUSH 10 ML FLUSH IV FLUSH SCH ×2 (12:26→20:17)
[2017-04-05] VITALS (18 sets, daily range): BP systolic 96–116; BP diastolic 54–83; PULSE 76–99; RESP 12–29; TEMP 97.8–98.7; O2SAT 88–100
[2017-04-05] MEDS: metroNIDAZOLE 500 MG INJ 100 ML IV SCH ×3 (06:25→19:55)
[2017-04-05] MEDS: ACETAMINOPHEN/HYDROcodone 325 MG/5 MG TAB PO PRN ×3 (06:34→21:24)
[2017-04-05 07:57] LABS: HEMATOCRIT 29.3 % (39.0-51.0); HEMOGLOBIN 9.8 GM/DL (13.0-17.0); MEAN CELL VOLUME 81.9 FL (80.0-100.0); MEAN CORPUSCULAR HEMOGLOBIN 27.2 PG (27.0-34.0); MEAN CORPUSCULAR HGB CONC 33.2 % (32.0-36.0); MEAN PLATELET VOLUME 9.4 FL (7.0-11.0); PLATELET COUNT 178 TH/MM3 (150-450); RED BLOOD COUNT 3.58 MIL/MM3 (4.50-5.90); RED CELL DISTRIBUTION WIDTH 16.4 % (11.6-17.2); WHITE BLOOD COUNT 11.3 TH/MM3 (4.0-11.0)
[2017-04-05 08:15] LABS: ALBUMIN 2.6 GM/DL (3.4-5.0); ALKALINE PHOSPHATASE 154 U/L (45-117); ALT (GPT) 21 U/L (12-78); AST (GOT) 44 U/L (15-37); BICARBONATE 28.7 MEQ/L (21.0-32.0); BLOOD UREA NITROGEN 28 MG/DL (7-18); CALCIUM 8.5 MG/DL (8.5-10.1); CHLORIDE 96 MEQ/L (98-107); CREATININE 5.39 MG/DL (0.60-1.30); GLOMERULAR FILTRATION RATE 15 ML/MIN (>89); GLUCOSE,RANDOM 84 MG/DL (74-106); SODIUM (NA) 135 MEQ/L (136-145); TOTAL BILIRUBIN ADULT 0.8 MG/DL (0.2-1.0); TOTAL PROTEIN 6.1 GM/DL (6.4-8.2)
[2017-04-05 08:50] LABS: BANDS 20 % (0-6); CORRECTED NUCLEATED RBC 1 /100 WBC (0-0); LYMPHOCYTES 9 % (9-44); METAMYELOCYTES 1 % (0-1); MONOCYTES 3 % (0-8); NEUTROPHIL # MANUAL DIFF 8.7 TH/MM3 (1.8-7.7); NUCLEATED RED BLOOD CELL 1 (0-0); POLYS (SEG NEUTROPHILS) 56 % (16-70)
[2017-04-05 08:51] LABS: BURR CELLS 1+ (NORMAL); TARGET CELLS 2+ (NORMAL); TOXIC VACUOLATION PRESENT (NONE SEEN)
[2017-04-05 08:53] LABS: HOWELL-JOLLY BODIES PRESENT (NONE SEEN)
[2017-04-05] MEDS: DOCUSATE SODIUM 100 MG CAP PO SCH ×2 (09:00→19:57)
[2017-04-05] MEDS: ABACAVIR SULFATE 300 MG TAB PO SCH ×2 (09:00→19:58)
[2017-04-05] MEDS: FOSAMPRENAVIR CALCIUM PO SCH ×2 (09:32→19:56)
[2017-04-05] MEDS: RITONAVIR 100 MG TAB PO SCH ×2 (09:32→19:56)
[2017-04-05] MEDS: SODIUM CHLORIDE 0.9% FLUSH 10 ML FLUSH IV FLUSH SCH ×2 (09:32→19:57)
[2017-04-05] MEDS: levETIRAcetam 250 MG TAB PO SCH ×2 (09:32→19:56)
[2017-04-05] MEDS: CALCIUM ACETATE 667 MG CAP PO SCH ×3 (09:37→19:56)
--- NOTE | 2017-04-05 11:40 | HHI.NPPN ---
Subjective History of Present Illness 26 year old with PD catheter change Additional Remarks in ICU due to sepsis Abd pain Review of Systems General Constitutional: Fever, Fatigue Gastrointestinal Gastrointestinal: Abdominal Pain Objective Data Data Vital Signs Date Time Temp Pulse Resp B/P (MAP) Pulse Ox O2 Delivery O2 Flow Rate FiO2 04/05/17 10:00 91 04/05/17 08:00 98.3 91 29 105/58 (74) 90 04/05/17 08:00 91 04/05/17 06:00 92 04/05/17 04:00 99 04/05/17 04:00 98.0 99 26 96/54 (68) 99 04/05/17 02:00 97 04/05/17 00:00 97.8 90 22 105/72 (83) 100 04/05/17 00:00 90 04/04/17 22:00 90 04/04/17 20:00 90 04/04/17 20:00 98.6 90 33 97/70 (79) 100 04/04/17 19:45 100 Nasal Cannula 2.00 04/04/17 18:00 101 04/04/17 17:00 100 32 100/55 (70) 99 04/04/17 16:00 98.3 104 32 99/54 (69) 93 04/04/17 16:00 112 04/04/17 15:00 112 24 91/52 (65) 100 04/04/17 14:00 122 19 98/59 (72) 100 04/04/17 14:00 122 04/04/17 13:00 102 28 112/70 (84) 04/04/17 12:00 98.3 111 25 94/49 (64) 99 04/04/17 12:00 101 -: 04/05/17 0620 04/05/17 0620 Physical Exam General Appearance: Well Developed Neck Neck Exam: Neck Supple Pulmonary Resp Exam: Clear Bilaterally Cardiology CV Exam: Tachycardia Gastrointestinal/Abdomen GI Exam: Soft GI Remarks tender Extremeties Extremeties Remarks multiple amputation Assessment/Plan Problem List: (1) ESRD (end stage renal disease) on dialysis ICD Codes: N18.6 - End stage renal disease; Z99.2 - Dependence on renal dialysis Plan: Patient blood pressures low sepsis started on Levaquin/metronidazole/ CT scan done [facility] yesterday Hb improved post PRBC will follow (2) HIV (human immunodeficiency virus infection) ICD Codes: Z21 - Asymptomatic human immunodeficiency virus [HIV] infection status Status: Chronic Plan: He is on outpatient medications (3) Peritoneal dialysis catheter dysfunction ICD Codes: T85.611A - Breakdown (mechanical) of intraperitoneal dialysis catheter, initial encounter Plan: Replaced Mireya Eduardo MD Apr 05, 2017 11:40
--- NOTE | 2017-04-05 14:38 | HHI.PR ---
Subjective Subjective Notes no acute issues, pain better, pt seen sleeping Objective Vitals/I&O Vital Signs Date Time Temp Pulse Resp B/P (MAP) Pulse Ox O2 Delivery O2 Flow Rate FiO2 04/05/17 12:00 92 04/05/17 08:00 98.3 29 105/58 (74) 90 04/04/17 19:45 Nasal Cannula 2.00 Labs Laboratory Tests Test 04/05/17 06:20 White Blood Count 11.3 Red Blood Count 3.58 Hemoglobin 9.8 Hematocrit 29.3 Mean Corpuscular Volume 81.9 Mean Corpuscular Hemoglobin 27.2 Mean Corpuscular Hemoglobin Concent 33.2 Red Cell Distribution Width 16.4 Platelet Count 178 Mean Platelet Volume 9.4 CBC Comment AUTO DIFF Differential Total Cells Counted 100 Neutrophils % (Manual) 56 Band Neutrophils % 20 Lymphocytes % 9 Monocytes % 3 Eosinophils % 11 Neutrophils # (Manual) 8.7 Metamyelocytes 1 Nucleated Red Blood Cells 1 Differential Comment FINAL DIFF MANUAL Toxic Vacuolation PRESENT Platelet Estimate NORMAL Platelet Morphology Comment ENLARGED Target Cells 2+ [place] Bodies PRESENT [place] Cells 1+ Blood Urea Nitrogen 28 Creatinine 5.39 Random Glucose 84 Total Protein 6.1 Albumin 2.6 Calcium Level 8.5 Alkaline Phosphatase 154 Aspartate Amino Transf (AST/SGOT) 44 Alanine Aminotransferase (ALT/SGPT) 21 Total Bilirubin 0.8 Sodium Level 135 Potassium Level 3.5 Chloride Level 96 Carbon Dioxide Level 28.7 Anion Gap 10 Estimat Glomerular Filtration Rate 15 Date/Time Source Procedure Growth Status 04/03/17 14:30 Blood Peripheral Aerobic Blood Culture - Preliminary NO GROWTH IN 2 DAYS Resulted 04/03/17 14:30 Blood Peripheral Anaerobic Blood Culture - Preliminary NO GROWTH IN 2 DAYS Resulted 04/02/17 11:08 Wound Other Gram Stain - Final Complete 04/02/17 11:08 Wound Other Wound Culture - Final NO GROWTH IN 72 HRS.--AEROBICALLY OR ... Complete Abdomen: Other (soft incision c/d/i) A/P Assessment and Plan s/p lap pd cath revision PLAN transfer to floor abdominal exams pain control ok for diet Sen Goins MD Apr 05, 2017 14:38
[2017-04-05] MEDS ORDERED: LEVOFLOXACIN 500 MG PREMIX INJ 100 ML IV SCH ×2 (15:00→20:00)
[2017-04-05] MEDS: FAMOTIDINE 20 MG TAB PO SCH (21:00)
--- NOTE | 2017-04-05 21:18 | HHI.CCPN ---
Subjective Remarks/Hospital Course 04/03: Patient is a 26 with history of ESRD on peritoneal dialysis, HIV, and s/p amputations of limbs who was admitted secondary to peritoneal dialysis catheter being obstructed. Patient had laparoscopic revision of PD cath by Dr. Goins on 04/02. Postoperatively patient was hypotensive in PACU. He subsequently underwent hemodialysis and was transferred to the ICU. Overnight patient has remained tachycardic and developed low blood pressures with systolic in the 80s. He is otherwise awake and alert denies any chest pain or shortness of breath. Denies any fevers or chills. Denies any nausea or vomiting. He has been complaining of significant right sided lower abdominal pain following his surgery. Critical care medicine consulted by Dr. Goins for hypotension and tachycardia. Patient was also noted to have leukocytosis today raising concern for sepsis. When I evaluated the patient he was laying in bed complaining of right sided abdominal pain. Blood cultures were ordered and patient was initiated on IV vancomycin, Levaquin and Flagyl for empiric antibiotic coverage. He did receive a fluid bolus earlier with normal saline. 04/04: Resting in bed. Complains of persistent right lower abdominal pain. CT abdomen pelvis done last night did not reveal any evidence of free air or other acute pathology except postop changes related to PD catheter placement. 04/05: clinically improving. sleeping in bed. arousable, but did not want to interact or answer questions. does deny abdominal pain. later in the day, complained of burning around multiple skin lesions. patient thought these were related to antibiotic use. clinically appear to be older scaling patchy areas. there are no areas of desquamated skin or bullous disease. no mucosal involvement. Objective Vital Signs Date Time Temp Pulse Resp B/P (MAP) Pulse Ox O2 Delivery O2 Flow Rate FiO2 04/05/17 20:28 95 04/05/17 18:00 83 04/05/17 17:00 21 116/83 (94) 04/05/17 16:00 98.5 04/04/17 19:45 Nasal Cannula 2.00 Intake and Output 04/05/17 04/05/17 04/06/17 08:00 16:00 00:00 Intake Total 400 ml 250 ml Output Total 535 ml 600 ml Balance -135 ml -350 ml Result Diagram: 04/05/1720 04/05/17 06 Objective Remarks HEENT/Neuro: Pallor present, No icterus, tongue moist, WEST, Awake alert oriented 3, nonfocal grossly, moving all extremities Neck: No JVD Chest/pulmonary: CTA bilaterally Cardiovascular: S1-S2 regular no gallop or murmur GI/abdomen: Soft, nontender, nondistended. no guarding. Extremities: Warm bilaterally, no edema. Bilateral lower extremity amputations , left upper extremity amputation noted. skin: multiple small patchy areas of scaly skin, tender to palpation. no areas of desquamation, erythema, or bullous disease. no open sores. no mucosal involvement. primarily upper chest, shoulders, back of neck. I have nothing to compare this to, but patient reports these are new today. A/P Assessment and Plan Assessment: 26yM with ESRD and HIV who presents with nonfunctioning PD catheter and sepsis, no clinically improving. Unclear etiology of skin lesions. While patient thinks these are associated with iv antibiotics, these do not have the appearance of TEN or SJS in any way. Will ask ID to weigh in and lend their opinion and recommendation, particularly in the setting of HIV. Nephrology also involved. this appears less-likely to be calciphylaxis, and serum calcium and phosphorus levels are wnl. Overall, patient clinically improving and stable for transfer out of ICU. will consult hospitalist for ongoing management. Hypotension - resolved. Tachycardia- resolved. Leukocytosis- improving. Sepsis Nonfunctioning PD catheter status post revision 04/02 Anemia- chronic. stable. ESRD on hemodialysis HIV History of splenectomy H/o seizure H/o lymphoma Plan: Neuro: Follow neuro status. Pain medications as needed. Continue Keppra Cardiovascular: Receive 250 cc NS bolus on 04/03. Suspect hypotension secondary to sepsis/SIRS and now improving. stable for transfer out of ICU. Pulmonary: Supplemental O2 as needed. GI/liver: By mouth diet as tolerated. Renal/: On hemodialysis per nephrology. PD catheter revised on 04/[address] Goins. Scheduled for hemodialysis for 04/04. ID: Continue current HIV regimen. s/p CT abdomen pelvis for further evaluation of right flank pain which was unremarkable. Empiric antibiotic coverage with IV vancomycin 1 dose followed by Levaquin/Flagyl IV. Blood cultures 2 ordered on 04/03, NGTD. consult ID to eval new rash/skin lesions. Heme: Follow CBC. does not meet transfusion criteria at this time. Endocrine: SSI for glycemic control if needed Prophylaxis: Start subcutaneous heparin for DVT prophylaxis when OK with Dr. Goins. Discussed with Dr. Goins on 04/03. Further recommendations per nephrology Bari Hartley MD Apr 05, 2017 21:18
[2017-04-06] VITALS (19 sets, daily range): BP systolic 107–141; BP diastolic 70–98; PULSE 63–88; RESP 0–38; TEMP 97.5–98.4; O2SAT 90–100
[2017-04-06] MEDS: metroNIDAZOLE 500 MG INJ 100 ML IV SCH (04:09)
[2017-04-06] MEDS: ACETAMINOPHEN/HYDROcodone 325 MG/5 MG TAB PO PRN ×3 (04:18→12:25)
--- NOTE | 2017-04-06 07:31 | HHI.CCPN ---
Subjective Remarks/Hospital Course 04/03: Patient is a 26 with history of ESRD on peritoneal dialysis, HIV, and s/p amputations of limbs who was admitted secondary to peritoneal dialysis catheter being obstructed. Patient had laparoscopic revision of PD cath by Dr. Goins on 04/02. Postoperatively patient was hypotensive in PACU. He subsequently underwent hemodialysis and was transferred to the ICU. Overnight patient has remained tachycardic and developed low blood pressures with systolic in the 80s. He is otherwise awake and alert denies any chest pain or shortness of breath. Denies any fevers or chills. Denies any nausea or vomiting. He has been complaining of significant right sided lower abdominal pain following his surgery. Critical care medicine consulted by Dr. Goins for hypotension and tachycardia. Patient was also noted to have leukocytosis today raising concern for sepsis. When I evaluated the patient he was laying in bed complaining of right sided abdominal pain. Blood cultures were ordered and patient was initiated on IV vancomycin, Levaquin and Flagyl for empiric antibiotic coverage. He did receive a fluid bolus earlier with normal saline. 04/04: Resting in bed. Complains of persistent right lower abdominal pain. CT abdomen pelvis done last night did not reveal any evidence of free air or other acute pathology except postop changes related to PD catheter placement. 04/05: clinically improving. sleeping in bed. arousable, but did not want to interact or answer questions. does deny abdominal pain. later in the day, complained of burning around multiple skin lesions. patient thought these were related to antibiotic use. clinically appear to be older scaling patchy areas. there are no areas of desquamated skin or bullous disease. no mucosal involvement. 04/06 Patient is lying in bed in NAD. Afebrile. Objective Vital Signs Date Time Temp Pulse Resp B/P (MAP) Pulse Ox O2 Delivery O2 Flow Rate FiO2 04/06/17 06:00 73 04/06/17 04:00 98.4 22 119/88 (98) 95 04/04/17 19:45 Nasal Cannula 2.00 Intake and Output 04/06/17 04/06/17 04/07/17 08:00 16:00 00:00 Intake Total 700 ml Output Total 1250 ml Balance -550 ml Result Diagram: 04/05/17 0620 04/05/17 0620 Imaging Last Impressions Abdomen/Pelvis CT 04/03/17 0000 Signed Impressions: Service Date/Time: Monday, April 03, 2017 19:47 - CONCLUSION: 1. Basilar airspace disease in the lungs with some air bronchograms and trace pleural fluid. 2. Atrophic kidneys. Previous splenectomy. 3. Numerous gallstones without biliary ductal dilatation. 4. Peritoneal dialysis catheter with several locules of subcutaneous air in anterior abdominal wall. 5. Mildly enlarged inguinal lymph nodes bilaterally. Rosas Wood MD Abdomen X-Ray 04/03/17 0000 Signed Impressions: Service Date/Time: Monday, April 03, 2017 15:25 - CONCLUSION: 1. No evidence of obstruction. Oliver Perez MD Objective Remarks HEENT/Neuro: Pallor present, No icterus, tongue moist, WEST, Awake alert oriented 3, nonfocal grossly, moving all extremities Neck: No JVD Chest/pulmonary: CTA bilaterally Cardiovascular: S1-S2 regular no gallop or murmur GI/abdomen: Soft, nontender, nondistended. no guarding. Extremities: Warm bilaterally, no edema. Bilateral lower extremity amputations , left upper extremity amputation noted. skin: multiple small patchy areas of scaly skin, tender to palpation. no areas of desquamation, erythema, or bullous disease. no open sores. no mucosal involvement. primarily upper chest, shoulders, back of neck. I have nothing to compare this to, but patient reports these are new today. A/P Assessment and Plan Assessment: 26yM with ESRD and HIV who presents with nonfunctioning PD catheter and sepsis, no clinically improving. Unclear etiology of skin lesions. While patient thinks these are associated with iv antibiotics, these do not have the appearance of TEN or SJS in any way. Will ask ID to weigh in and lend their opinion and recommendation, particularly in the setting of HIV. Nephrology also involved. this appears less-likely to be calciphylaxis, and serum calcium and phosphorus levels are wnl. Overall, patient clinically improving and stable for transfer out of ICU. will consult hospitalist for ongoing management. Awaiting transfer to floor. Hypotension - resolved. Tachycardia- resolved. Leukocytosis- improving. Sepsis Nonfunctioning PD catheter status post revision 04/02 Anemia- chronic. stable. ESRD on hemodialysis HIV History of splenectomy H/o seizure H/o lymphoma Plan: Neuro: Follow neuro status. Pain medications as needed. Continue Keppra Cardiovascular: Receive 250 cc NS bolus on 04/03. Monitor HR and BP keep MAP> 65mmHg Pulmonary: Supplemental O2 as needed keep sats >92%. Check CXR GI/liver: On PO diet Renal/: On hemodialysis per nephrology. PD catheter revised on 04/[address] Goins. Monitor renal function, I/O's, avoid nephrotoxins ID: Continue current HIV regimen. Empiric antibiotic coverage with IV vancomycin 1 dose,on Levaquin/Flagyl IV. Blood cultures 2 ordered on 04/03, NGTD. ID consulted. Check sputum cx CT abdomen/pelvis: Basilar airspace disease in the lungs with some air bronchograms and trace pleural fluid.. Atrophic kidneys. Previous splenectomy. Numerous gallstones without biliary ductal dilatation. Peritoneal dialysis catheter with several locules of subcutaneous air in anterior abdominal wall . Heme: Follow CBC. Endocrine: SSI for glycemic control if needed Prophylaxis: subcutaneous heparin for DVT prophylaxis when OK with Dr. Goins. Check labs today Level 2 Meliza Kramer MD Apr 06, 2017 07:31
[2017-04-06] MEDS: CALCIUM ACETATE 667 MG CAP PO SCH ×3 (08:43→18:00)
[2017-04-06] MEDS: ABACAVIR SULFATE 300 MG TAB PO SCH ×2 (08:43→20:43)
[2017-04-06] MEDS: RITONAVIR 100 MG TAB PO SCH ×2 (08:43→20:43)
[2017-04-06] MEDS: FOSAMPRENAVIR CALCIUM PO SCH ×2 (08:43→20:44)
[2017-04-06] MEDS: levETIRAcetam 250 MG TAB PO SCH ×2 (08:44→20:43)
[2017-04-06] MEDS: SODIUM CHLORIDE 0.9% FLUSH 10 ML FLUSH IV FLUSH SCH ×2 (08:44→20:44)
[2017-04-06] MEDS: DOCUSATE SODIUM 100 MG CAP PO SCH ×2 (08:44→20:44)
--- NOTE | 2017-04-06 09:02 | RADRPT ---
EXAM DATE/TIME: 04/06/2017 07:45 [facility] COMPARISON: CHEST SINGLE AP, February 02, 2017, 18:14. INDICATIONS : Shortness of breath. MEDICAL HISTORY : HIV, Lymphoma SURGICAL HISTORY : Splenectomy. Perm Cath placement ENCOUNTER: Initial ACUITY: 1 day PAIN SCORE: 0/10 LOCATION: Bilateral chest FINDINGS: A single view of the chest demonstrates the lungs to be symmetrically aerated without evidence of mas s, infiltrate or effusion. Stable right IJ tunneled dialysis catheter. The cardiomediastinal contour s are unremarkable. Osseous structures are intact. CONCLUSION: 1. No acute abnormality or significant interval change. Jose Botello MD on April 06, 2017 at 8:57 Board Certified Radiologist. This report was verified electronically.
--- NOTE | 2017-04-06 09:28 | PD.ID.CON ---
History of Present Illness Service ID Consult Requested By Reason for Consult Evaluation and Mment of Secondary infected Peritonitis. Primary Care Physician No Primary Care Physician Diagnoses: History of Present Illness is a 26 y/o AAM with history of ESRD on peritoneal dialysis, HIV, and s/p amputations of limbs who was admitted secondary to peritoneal dialysis catheter being obstructed. Patient had laparoscopic revision of PD cath by Dr. Goins on 04/02. Postoperatively patient was hypotensive in PACU. He subsequently underwent hemodialysis and was transferred to the ICU. He has been complaining of significant right sided lower abdominal pain following his surgery. Critical care medicine consulted by Dr. Goins for hypotension and tachycardia. Patient was also noted to have leukocytosis today raising concern for sepsis. Blood cultures were ordered and patient was initiated on IV vancomycin, Levaquin and Flagyl for empiric antibiotic coverage. Intraoperative note by reviewed: the PD catheter was not visible at the intra abdominal site and small bowel adhesion was noted along with other adhesions. No purulence noted or pockets of fluid based on review of note. Intraop cath culture no growth on regular aerobic anaerobic cultures. Patient received Clindamycin and Vanco IV perioperatively and RN informs me he has a desquamating rash all over his body. These two antibiotics were discontinued and patient is now on Levaquin and Flagyl IV. Patient is sitting up in bed in ICU. Appears irritable but other mehta vitals are ok. Good UO. Bp ok. No fevers. Not on pressors. Of note, patient is on HIV medications but reports not seeing any ID doctor as outpatient. He is on HAART with no follow up. His PMHx is also significant for bacteremia as well as Strep pneumo meningitis. ID consulted for evaluation and management of sepsis and infected secondary peritonitis secondary to peritoneal dialysis catheter. Review of Systems ROS Limitations: Poor Historian Constitutional: DENIES: Diaphoretic episodes, Fatigue, Fever, Weight gain, Weight loss, Chills, Dizziness, Change in appetite, Night Sweats Endocrine: DENIES: Heat/cold intolerance, Polydipsia, Polyuria, Polyphagia Eyes: DENIES: Blurred vision, Diplopia, Eye inflammation, Eye pain, Vision loss , Photosensitivity, Double Vision Ears, nose, mouth, throat: DENIES: Tinnitus, Hearing loss, Vertigo, Nasal discharge, Oral lesions, Throat pain, Hoarseness, Ear Pain, Running Nose, Epistaxis, Sinus Pain, Toothache, Odynophagia Cardiovascular: DENIES: Chest pain, Palpitations, Syncope, Dyspnea on Exertion , PND, Lower Extremity Edema, Orthopnea, Claudication Gastrointestinal: COMPLAINS OF: Abdominal pain, DENIES: Black stools, Bloody stools, Constipation, Diarrhea, Nausea, Vomiting, Difficulty Swallowing, Anorexia Genitourinary: DENIES: Sexual dysfunction, Urinary frequency, Urinary incontinence, Urgency, Hematuria, Dysuria, Nocturia, Penile Discharge, Testicular Pain, Testicular Swelling Musculoskeletal: DENIES: Joint pain, Muscle aches, Stiffness, Joint Swelling, Back pain, Neck pain Integumentary: COMPLAINS OF: Abnormal pigmentation, DENIES: Nail changes, Pruritus, Rash Hematologic/lymphatic: DENIES: Bruising, Lymphadenopathy Immunologic/allergic: DENIES: Eczema, Urticaria Neurologic: DENIES: Abnormal gait, Headache, Localized weakness, Paresthesias, Seizures, Speech Problems, Tremor, Poor Balance Psychiatric: DENIES: Anxiety, Confusion, Mood changes, Depression, Hallucinations, Agitation, Suicidal Ideation, Homicidal Ideation, Delusions Except as stated in HPI: all other systems reviewed are Neg Past Family Social History Allergies: Coded Allergies: amoxicillin (Verified Allergy, Severe, rash all over, 04/02/17) clindamycin (Verified Allergy, Severe, Desquamating rash, 04/06/17) penicillin G (Verified Allergy, Severe, Anaphylaxis, 04/02/17) vancomycin (Verified Allergy, Severe, Desqumating rash, 04/06/17) Past Medical History End-stage renal disease on peritoneal dialysis History of lymphoma details not known. Bilateral amputations of the lower extremities Left upper extremity amputation HIV, last CD4 cell count 275 on 02/03/17. Patient reports he has no HIV doctor. Seizure disorder h/o non compliance h/o signing off AMA in past. Past Surgical History Permacath Bilateral lower and left upper extremity amputations at age 12 Splenectomy Reported Medications Reported Meds & Active Scripts Active Calcium Acetate (Calcium Acetate (Phosphate Bin) 667 Mg Cap 1,334 Mg PO TID Norvir (Ritonavir) 100 Mg Cap 100 Mg PO BID Epivir (Lamivudine) 150 Mg Tab 150 Mg PO DAILY *Fill this 5 day prescription first and begin taking Epivir 12 hours after the first dose received in the Emergency Department as prescribed.* Lexiva (Fosamprenavir Calcium) 700 Mg Tab 1 Tab PO BID Ziagen (Abacavir Sulfate) 300 Mg Tab 300 Mg PO BID Hazardous agent; use appropriate precautions for handling & disposal. Keppra (Levetiracetam) 250 Mg Tab 750 Mg PO Q12HR Famotidine 20 Mg Tab 20 Mg PO HS Active Ordered Medications Current Medications Medications (Trade) Dose Ordered Sig/Moose Route Start Time Stop Time Status Last Admin (NS Flush) 2 ml UNSCH PRN IV FLUSH 04/02/17 11:30 (NS Flush) 2 ml BID IV FLUSH 04/02/17 11:30 04/06/17 08:44 (Modale 5-325 Mg) 1 tab Q4H PRN PO 04/02/17 11:30 04/06/17 06:37 (Modale 5-325 Mg) 2 tab Q4H PRN PO 04/02/17 11:30 04/05/17 21:24 (Zofran Inj) 4 mg Q4H PRN IV PUSH 04/02/17 11:30 (Colace) 100 mg BID PO 04/02/17 12:00 04/04/17 12:24 (Morphine Inj) 2 mg Q3H PRN IV PUSH 04/02/17 11:45 (Ziagen) 300 mg BID PO 04/02/17 21:00 04/06/17 08:43 (Phoslo) 1,334 mg TID PO 04/02/17 18:00 04/06/17 08:43 (Pepcid) 20 mg HS PO 04/02/17 21:00 04/05/17 21:00 (Lexiva) 700 mg BID PO 04/02/17 21:00 04/06/17 08:43 (Epivir) 150 mg DAILY PO 04/03/17 09:00 04/06/17 08:43 (Keppra) 750 mg Q12HR PO 04/02/17 21:00 04/06/17 08:44 (Norvir) 100 mg BID PO 04/02/17 21:00 04/06/17 08:43 Sodium Chloride 1,000 ml @ 0 mls/hr TITRATE PRN OTHER 04/04/17 09:15 (Heparin Inj) 8,000 units UNSCH PRN IV FLUSH 04/04/17 09:15 Sodium Chloride 1,000 ml @ 200 mls/hr Q5H PRN OTHER 04/04/17 09:15 Sodium Chloride 200 ml @ 0 mls/hr UNSCH PRN IV 04/04/17 09:15 (Mannitol Inj) 12.5 gm UNSCH PRN IV PUSH 04/04/17 09:15 Albumin Human 100 ml @ 60 mls/hr UNSCH PRN IV 04/04/17 09:15 (NS Flush) 5 ml UNSCH PRN IV FLUSH 04/04/17 09:15 (Heparin Inj) 1,000 units UNSCH PRN OTHER 04/04/17 09:15 (Gentamicin (Dialysis) Inj) 10 mg UNSCH PRN OTHER 04/04/17 09:15 (Gelfoam 12 Mm/7 Mm Top) 1 foam UNSCH PRN TOPICAL 04/04/17 09:15 (Zofran Inj) 4 mg UNSCH PRN IV PUSH 04/04/17 09:15 (Tylenol) 650 mg UNSCH X1 PRN PO 04/04/17 09:15 04/07/17 09:14 (Benadryl) 25 mg UNSCH PRN PO 04/04/17 09:15 (Nitrostat Sl) 0.4 mg UNSCH PRN SL 04/04/17 09:15 (Catapres) 0.1 mg UNSCH PRN PO 04/04/17 09:15 Sodium Chloride 1,000 ml @ 0 mls/hr Q0M PRN OTHER 04/04/17 09:29 04/04/17 11:05 (Heparin Inj) 8,000 units UNSCH PRN IV FLUSH 04/04/17 09:30 Sodium Chloride 1,000 ml @ 200 mls/hr Q5H PRN IV 04/04/17 09:29 Sodium Chloride 1,000 ml @ 0 mls/hr Q0M PRN OTHER 04/04/17 09:29 (Mannitol Inj) 12.5 gm UNSCH PRN IV 04/04/17 09:30 Albumin Human 100 ml @ 60 mls/hr UNSCH PRN IV 04/04/17 09:30 (NS Flush) 5 ml UNSCH PRN IV FLUSH 04/04/17 09:30 (Heparin Inj) UNSCH PRN .XX 04/04/17 09:30 04/04/17 11:03 (Gentamicin (Dialysis) Inj) 20 mg UNSCH PRN OTHER 04/04/17 09:30 04/04/17 11:04 (Zofran Inj) 4 mg UNSCH PRN IV PUSH 04/04/17 09:30 (Tylenol) 650 mg UNSCH PRN PO 04/04/17 09:30 (Benadryl) 25 mg UNSCH PRN PO 04/04/17 09:30 (Nitrostat Sl) 0.4 mg UNSCH PRN SL 04/04/17 09:30 (Catapres) 0.1 mg UNSCH PRN PO 04/04/17 09:30 (Epogen Inj) 10,000 units UNSCH PRN IV PUSH 04/04/17 09:30 04/04/17 11:02 (Gelfoam 12 Mm/7 Mm Top) 1 foam UNSCH PRN TOP 04/04/17 09:30 (Levaquin) 500 mg DAILY PO 04/07/17 09:00 UNV (Flagyl) 500 mg Q8HR PO 04/06/17 14:00 UNV Family History could not be obtained. Patient did not want to discuss at time of my visit. Will attempt again later. Social History Denies IVDA or illicit drugs. Lives at home, ambulates on his amputated limbs. Physical Exam Vital Signs Vital Signs Date Time Temp Pulse Resp B/P (MAP) Pulse Ox O2 Delivery O2 Flow Rate FiO2 04/06/17 06:00 73 04/06/17 04:00 71 04/06/17 04:00 98.4 71 22 119/88 (98) 95 04/06/17 02:00 84 04/06/17 00:00 79 04/06/17 00:00 98.4 79 20 107/70 (82) 93 04/05/17 22:00 76 04/05/17 20:28 95 04/05/17 20:00 98.7 83 20 115/75 (88) 92 04/05/17 20:00 83 04/05/17 18:00 83 04/05/17 17:00 90 21 116/83 (94) 94 04/05/17 16:00 87 04/05/17 16:00 98.5 87 17 104/64 (77) 88 04/05/17 15:00 86 13 112/65 (81) 91 04/05/17 14:00 87 04/05/17 14:00 87 19 108/78 (88) 94 04/05/17 13:00 88 12 106/64 (78) 90 04/05/17 12:00 98.5 92 22 109/70 (83) 93 04/05/17 12:00 92 04/05/17 11:00 86 28 110/68 (82) 98 04/05/17 10:00 91 26 111/72 (85) 92 04/05/17 10:00 91 Physical Exam GENERAL: This is a well-nourished, well-developed patient, in no apparent distress. SKIN: Desquamating rash all over the body. ? Oral thrush. HEAD: Atraumatic. Normocephalic. No temporal or scalp tenderness. EYES: Pupils equal round and reactive. Extraocular motions intact. No scleral icterus. No injection or drainage. ENT: Nose without bleeding, purulent drainage or septal hematoma. Throat without erythema, tonsillar hypertrophy or exudate. Uvula midline. Airway patent. NECK: Trachea midline. Supple, nontender, no meningeal signs. CARDIOVASCULAR: Regular rate and rhythm without murmurs, gallops, or rubs. RESPIRATORY: Clear to auscultation. Breath sounds equal bilaterally. No wheezes , rales, or rhonchi. GASTROINTESTINAL: Abdomen soft, non-tender, nondistended. MUSCULOSKELETAL: Bilateral LE amputation sites with no e.o infection. Left UE amputation site with no e.o infection. NEUROLOGICAL: Awake and alert. Grossly non focal. Psych irritable, not cooperative to the fullest. IV line sites with no e.o infection. HD cath site with no e.o infection. Laboratory Date/Time Source Procedure Growth Status 04/03/17 14:30 Blood Peripheral Aerobic Blood Culture - Preliminary NO GROWTH IN 2 DAYS Resulted 04/03/17 14:30 Blood Peripheral Anaerobic Blood Culture - Preliminary NO GROWTH IN 2 DAYS Resulted 04/02/17 11:08 Wound Other Gram Stain - Final Complete 04/02/17 11:08 Wound Other Wound Culture - Final NO GROWTH IN 72 HRS.--AEROBICALLY OR ... Complete Result Diagram: 04/05/17 0620 04/05/17 0620 Imaging Last Impressions Chest X-Ray 04/06/17 0000 Signed Impressions: Service Date/Time: Thursday, April 06, 2017 07:45 - CONCLUSION: 1. No acute abnormality or significant interval change. Jose Botello MD Abdomen/Pelvis CT 04/03/17 0000 Signed Impressions: Service Date/Time: Monday, April 03, 2017 19:47 - CONCLUSION: 1. Basilar airspace disease in the lungs with some air bronchograms and trace pleural fluid. 2. Atrophic kidneys. Previous splenectomy. 3. Numerous gallstones without biliary ductal dilatation. 4. Peritoneal dialysis catheter with several locules of subcutaneous air in anterior abdominal wall. 5. Mildly enlarged inguinal lymph nodes bilaterally. Rosas Wood MD Abdomen X-Ray 04/03/17 0000 Signed Impressions: Service Date/Time: Monday, April 03, 2017 15:25 - CONCLUSION: 1. No evidence of obstruction. Oliver Perez MD Assessment and Plan Assessment and Plan Sepsis present on admission(patient is immune compromised HIV positive and may not mount typical signs of sepsis.) Infected peritonitis secondary to peritoneal dialysis catheter. Intra-Op adhesions to bowel noted. Allergy to multiple antibiotics. HIV positive on HAART with no follow up. H/o Lymphoma. H/o seizures H/o non compliance Recs Continue Levaquin change to oral. Continue Flagyl change to oral. Caladryl liquid or Aquaphor for local application for desquamating rash. Patient denies any itching. Culture AFB PD cath tip Culture Fungus PD cath tip. Allergies updated by me after reviewing intraop records and MAR. ? Hypotension as part of drug allergy vs infection. D.w Micro to see if cath tip can be sent for AFB and Fungal cultures. It is very important to know who is prescribing his HIV meds and have his HIV care established in community. Follow cultures Follow clinically. D./w RN and pt d.w . Rohini Castro MD Apr 06, 2017 09:28
[2017-04-06 11:17] LABS: ALBUMIN 2.9 GM/DL (3.4-5.0); ALKALINE PHOSPHATASE 161 U/L (45-117); ALT (GPT) 17 U/L (12-78); AST (GOT) 25 U/L (15-37); BICARBONATE 23.4 MEQ/L (21.0-32.0); CALCIUM 9.1 MG/DL (8.5-10.1); CHLORIDE 94 MEQ/L (98-107); CREATININE 6.96 MG/DL (0.60-1.30); GLOMERULAR FILTRATION RATE 11 ML/MIN (>89); GLUCOSE,RANDOM 73 MG/DL (74-106); SODIUM (NA) 132 MEQ/L (136-145); TOTAL BILIRUBIN ADULT 0.6 MG/DL (0.2-1.0); TOTAL PROTEIN 6.7 GM/DL (6.4-8.2)
[2017-04-06 11:18] LABS: BLOOD UREA NITROGEN 44 MG/DL (7-18)
--- NOTE | 2017-04-06 13:21 | HHI.PR ---
Subjective Subjective Notes Resting in bed No issues Tolerating diet Pain better today Objective Vitals/I&O Vital Signs Date Time Temp Pulse Resp B/P (MAP) Pulse Ox O2 Delivery O2 Flow Rate FiO2 04/06/17 08:20 97 21 04/06/17 06:00 73 04/06/17 04:00 98.4 22 119/88 (98) 04/04/17 19:45 Nasal Cannula 2.00 Labs Laboratory Tests Test 04/06/17 09:55 Blood Urea Nitrogen 44 Creatinine 6.96 Random Glucose 73 Total Protein 6.7 Albumin 2.9 Calcium Level 9.1 Alkaline Phosphatase 161 Aspartate Amino Transf (AST/SGOT) 25 Alanine Aminotransferase (ALT/SGPT) 17 Total Bilirubin 0.6 Sodium Level 132 Potassium Level 4.4 Chloride Level 94 Carbon Dioxide Level 23.4 Anion Gap 15 Estimat Glomerular Filtration Rate 11 Date/Time Source Procedure Growth Status 04/03/17 14:30 Blood Peripheral Aerobic Blood Culture - Preliminary NO GROWTH IN 3 DAYS Resulted 04/03/17 14:30 Blood Peripheral Anaerobic Blood Culture - Preliminary NO GROWTH IN 3 DAYS Resulted 04/02/17 11:08 Wound Other Fungal Smear - Final NO FUNGAL ELEMENTS SEEN. Resulted 04/02/17 11:08 Wound Other Fungal Culture Pending Resulted Cardiovascular: Regular Lungs: Clear Abdomen: Other (PD cath in place; minimal tenderness to palpation; abdomen flat ) Extremities: Other (see below ) Narrative Exam multiple amputations A/P Assessment and Plan 26 year old male POD4 PD cath revision -No growth from PD cath swab -VSS -Tolerating renal diet -HD per Nephrology -ID following -Transfer to floor Attending Statement patient seen at bedside bp better pain better d/c planning recs per id and nephro Attestation The exam, history, and the medical decision-making described in the above note were completed with the assistance of the mid-level provider. I reviewed and agree with the findings presented. I attest that I had a [id number] encounter with the patient on the same day, and personally performed and documented my assessment and findings in the medical record. Miri Heller Apr 06, 2017 13:21 Sen Goins MD Apr 09, 2017 11:46
[2017-04-06 13:28] LABS: HEMATOCRIT 34.4 % (39.0-51.0); HEMOGLOBIN 11.3 GM/DL (13.0-17.0); MEAN CELL VOLUME 82.1 FL (80.0-100.0); MEAN CORPUSCULAR HGB CONC 32.9 % (32.0-36.0); MEAN PLATELET VOLUME 9.3 FL (7.0-11.0); PLATELET COUNT 217 TH/MM3 (150-450); RED BLOOD COUNT 4.19 MIL/MM3 (4.50-5.90); RED CELL DISTRIBUTION WIDTH 16.8 % (11.6-17.2)
--- NOTE | 2017-04-06 13:36 | HHI.NPPN ---
Subjective History of Present Illness 26 year old with PD catheter change Additional Remarks rash on face Review of Systems General Constitutional: Fever, Fatigue Gastrointestinal Gastrointestinal: Abdominal Pain Objective Data Data Vital Signs Date Time Temp Pulse Resp B/P (MAP) Pulse Ox O2 Delivery O2 Flow Rate FiO2 04/06/17 08:20 97 21 04/06/17 06:00 73 04/06/17 04:00 71 04/06/17 04:00 98.4 71 22 119/88 (98) 95 04/06/17 02:00 84 04/06/17 00:00 79 04/06/17 00:00 98.4 79 20 107/70 (82) 93 04/05/17 22:00 76 04/05/17 20:28 95 04/05/17 20:00 98.7 83 20 115/75 (88) 92 04/05/17 20:00 83 04/05/17 18:00 83 04/05/17 17:00 90 21 116/83 (94) 94 04/05/17 16:00 87 04/05/17 16:00 98.5 87 17 104/64 (77) 88 04/05/17 15:00 86 13 112/65 (81) 91 04/05/17 14:00 87 04/05/17 14:00 87 19 108/78 (88) 94 -: 04/05/17 0620 04/06/17 0955 Physical Exam General Appearance: Well Developed Neck Neck Exam: Neck Supple Pulmonary Resp Exam: Clear Bilaterally Cardiology CV Exam: Tachycardia Gastrointestinal/Abdomen GI Exam: Soft GI Remarks tender Extremeties Extremeties Remarks multiple amputation Assessment/Plan Problem List: (1) ESRD (end stage renal disease) on dialysis ICD Codes: N18.6 - End stage renal disease; Z99.2 - Dependence on renal dialysis Plan: Patient doing better has rash on face sepsis started on Levaquin/metronidazole/ CT scan done Gallstone HD TTS Hb improved post PRBC will follow (2) HIV (human immunodeficiency virus infection) ICD Codes: Z21 - Asymptomatic human immunodeficiency virus [HIV] infection status Status: Chronic Plan: He is on outpatient medications (3) Peritoneal dialysis catheter dysfunction ICD Codes: T85.611A - Breakdown (mechanical) of intraperitoneal dialysis catheter, initial encounter Plan: Replaced Mireay Eduardo MD Apr 06, 2017 13:36
[2017-04-06 14:00] LABS: BANDS 2 % (0-6); CORRECTED NUCLEATED RBC 1 /100 WBC (0-0); LYMPHOCYTES 16 % (9-44); MONOCYTES 7 % (0-8); NEUTROPHIL # MANUAL DIFF 10.2 TH/MM3 (1.8-7.7); NUCLEATED RED BLOOD CELL 1 (0-0); POLYS (SEG NEUTROPHILS) 66 % (16-70)
[2017-04-06 14:01] LABS: BURR CELLS 1+ (NORMAL); HOWELL-JOLLY BODIES PRESENT (NONE SEEN)
[2017-04-06 14:02] LABS: ACANTHOCYTES OCC (NORMAL); TARGET CELLS 1+ (NORMAL)
[2017-04-06] MEDS: metroNIDAZOLE 500 MG TAB PO SCH ×2 (14:03→22:13)
[2017-04-06] MEDS: AQUAPHOR OINT 50 GM TUBE TOPICAL SCH (20:43)
[2017-04-06] MEDS: FAMOTIDINE 20 MG TAB PO SCH (20:43)
[2017-04-07] VITALS (15 sets, daily range): BP systolic 108–135; BP diastolic 75–93; PULSE 72–109; RESP 13–26; TEMP 97.8–98.9; O2SAT 93–99
[2017-04-07] MEDS: metroNIDAZOLE 500 MG TAB PO SCH ×3 (06:22→21:11)
--- NOTE | 2017-04-07 07:02 | HHI.CCPN ---
Subjective Remarks/Hospital Course 04/03: Patient is a 26 with history of ESRD on peritoneal dialysis, HIV, and s/p amputations of limbs who was admitted secondary to peritoneal dialysis catheter being obstructed. Patient had laparoscopic revision of PD cath by Dr. Goins on 04/02. Postoperatively patient was hypotensive in PACU. He subsequently underwent hemodialysis and was transferred to the ICU. Overnight patient has remained tachycardic and developed low blood pressures with systolic in the 80s. He is otherwise awake and alert denies any chest pain or shortness of breath. Denies any fevers or chills. Denies any nausea or vomiting. He has been complaining of significant right sided lower abdominal pain following his surgery. Critical care medicine consulted by Dr. Goins for hypotension and tachycardia. Patient was also noted to have leukocytosis today raising concern for sepsis. When I evaluated the patient he was laying in bed complaining of right sided abdominal pain. Blood cultures were ordered and patient was initiated on IV vancomycin, Levaquin and Flagyl for empiric antibiotic coverage. He did receive a fluid bolus earlier with normal saline. 04/04: Resting in bed. Complains of persistent right lower abdominal pain. CT abdomen pelvis done last night did not reveal any evidence of free air or other acute pathology except postop changes related to PD catheter placement. 04/05: clinically improving. sleeping in bed. arousable, but did not want to interact or answer questions. does deny abdominal pain. later in the day, complained of burning around multiple skin lesions. patient thought these were related to antibiotic use. clinically appear to be older scaling patchy areas. there are no areas of desquamated skin or bullous disease. no mucosal involvement. 04/06 Patient is lying in bed in NAD. Afebrile. 04/07 Patient denies any complaints, on room air oxygen. Afebrile. Awaiting transfer out ICU. Objective Vital Signs Date Time Temp Pulse Resp B/P (MAP) Pulse Ox O2 Delivery O2 Flow Rate FiO2 04/07/17 06:00 80 04/07/17 04:00 98.7 13 135/93 (107) 99 04/06/17 08:20 21 04/04/17 19:45 Nasal Cannula 2.00 Intake and Output 04/07/17 04/07/17 04/08/17 08:00 16:00 00:00 Intake Total 240 ml Output Total 900 ml Balance -660 ml Result Diagram: 04/06/17 1240 04/06/17 0955 Other Results Laboratory Tests Test 04/06/17 09:55 04/06/17 12:40 Blood Urea Nitrogen 44 MG/DL Creatinine 6.96 MG/DL Random Glucose 73 MG/DL Total Protein 6.7 GM/DL Albumin 2.9 GM/DL Calcium Level 9.1 MG/DL Alkaline Phosphatase 161 U/L Aspartate Amino Transf (AST/SGOT) 25 U/L Alanine Aminotransferase (ALT/SGPT) 17 U/L Total Bilirubin 0.6 MG/DL Sodium Level 132 MEQ/L Potassium Level 4.4 MEQ/L Chloride Level 94 MEQ/L Carbon Dioxide Level 23.4 MEQ/L Anion Gap 15 MEQ/L Estimat Glomerular Filtration Rate 11 ML/MIN White Blood Count 15.0 TH/MM3 Red Blood Count 4.19 MIL/MM3 Hemoglobin 11.3 GM/DL Hematocrit 34.4 % Mean Corpuscular Volume 82.1 FL Mean Corpuscular Hemoglobin 27.0 PG Mean Corpuscular Hemoglobin Concent 32.9 % Red Cell Distribution Width 16.8 % Platelet Count 217 TH/MM3 Mean Platelet Volume 9.3 FL CBC Comment AUTO DIFF Differential Total Cells Counted 100 Neutrophils % (Manual) 66 % Band Neutrophils % 2 % Lymphocytes % 16 % Monocytes % 7 % Eosinophils % 9 % Neutrophils # (Manual) 10.2 TH/MM3 Nucleated Red Blood Cells 1 /100 WBC Differential Comment FINAL DIFF MANUAL Platelet Estimate NORMAL Platelet Morphology Comment NORMAL Target Cells 1+ [place] Bodies PRESENT Mariano Cells 1+ Acanthocytes OCC Imaging Last Impressions Chest X-Ray 04/06/17 0000 Signed Impressions: Service Date/Time: Thursday, April 06, 2017 07:45 - CONCLUSION: 1. No acute abnormality or significant interval change. Jose Botello MD Abdomen/Pelvis CT 04/03/17 0000 Signed Impressions: Service Date/Time: Monday, April 03, 2017 19:47 - CONCLUSION: 1. Basilar airspace disease in the lungs with some air bronchograms and trace pleural fluid. 2. Atrophic kidneys. Previous splenectomy. 3. Numerous gallstones without biliary ductal dilatation. 4. Peritoneal dialysis catheter with several locules of subcutaneous air in anterior abdominal wall. 5. Mildly enlarged inguinal lymph nodes bilaterally. Rosas Wood MD Abdomen X-Ray 04/03/17 0000 Signed Impressions: Service Date/Time: Monday, April 03, 2017 15:25 - CONCLUSION: 1. No evidence of obstruction. Oliver Perez MD Objective Remarks HEENT/Neuro: Pallor present, No icterus, tongue moist, WEST, Awake alert oriented 3, nonfocal grossly, moving all extremities Neck: No JVD Chest/pulmonary: CTA bilaterally Cardiovascular: S1-S2 regular no gallop or murmur GI/abdomen: Soft, nontender, nondistended. no guarding. Extremities: Warm bilaterally, no edema. Bilateral lower extremity amputations , left upper extremity amputation noted. skin: multiple small patchy areas of scaly skin, tender to palpation. no areas of desquamation, erythema, or bullous disease. no open sores. no mucosal involvement. primarily upper chest, shoulders, back of neck. I have nothing to compare this to, but patient reports these are new today. A/P Assessment and Plan Assessment: 26yM with ESRD and HIV who presents with nonfunctioning PD catheter and sepsis, no clinically improving. Unclear etiology of skin lesions. While patient thinks these are associated with iv antibiotics, these do not have the appearance of TEN or SJS in any way. Will ask ID to weigh in and lend their opinion and recommendation, particularly in the setting of HIV. Nephrology also involved. this appears less-likely to be calciphylaxis, and serum calcium and phosphorus levels are wnl. Overall, patient clinically improving and stable for transfer out of ICU. will consult hospitalist for ongoing management. Awaiting transfer to floor. Hypotension - resolved. Tachycardia- resolved. Leukocytosis- improving. Sepsis Nonfunctioning PD catheter status post revision 04/02 Anemia- chronic. stable. ESRD on hemodialysis HIV History of splenectomy H/o seizure H/o lymphoma Plan: Neuro: Follow neuro status. Pain medications as needed. Continue Keppra Cardiovascular: Receive 250 cc NS bolus on 04/03. Monitor HR and BP keep MAP> 65mmHg Pulmonary: Supplemental O2 as needed keep sats >92%. CXR yesterday -no acute changes GI/liver: On PO diet Renal/: On hemodialysis per nephrology. PD catheter revised on 04/[address] Goins. Monitor renal function, I/O's, avoid nephrotoxins ID: Continue current HIV regimen. on Levaquin/Flagyl . Blood cultures 2 ordered on 04/03, NGTD. ID is following. Follow up on cxs. CT abdomen/pelvis: Basilar airspace disease in the lungs with some air bronchograms and trace pleural fluid.. Atrophic kidneys. Previous splenectomy. Numerous gallstones without biliary ductal dilatation. Peritoneal dialysis catheter with several locules of subcutaneous air in anterior abdominal wall . Heme: Follow CBC. Endocrine: SSI for glycemic control if needed Prophylaxis: subcutaneous heparin for DVT prophylaxis Level 2 Meliza Kramer MD Apr 07, 2017 07:02
[2017-04-07] MEDS: DOCUSATE SODIUM 100 MG CAP PO SCH ×2 (09:00→21:00)
[2017-04-07] MEDS ORDERED: LEVOFLOXACIN 500 MG TAB PO SCH (09:00)
[2017-04-07] MEDS ORDERED: LEVOFLOXACIN 250 MG TAB PO SCH (09:00)
[2017-04-07] MEDS: HEPARIN SODIUM - IV 10,000 UNITS/10 ML VIAL PRN (11:00)
[2017-04-07] MEDS: SODIUM CHLOR 0.9% 1000 ML INJ 1,000 ML OTHER PRN (11:00)
[2017-04-07] MEDS: GENTAMICIN SULFATE (DIALYSIS USE ONLY) 20 MG/2 ML VIAL OTHER PRN (11:00)
--- NOTE | 2017-04-07 13:07 | HHI.IDPN ---
Subjective Subjective Remarks is a 26 y/o AAM with history of ESRD on peritoneal dialysis, HIV, and s/p amputations of limbs who was admitted secondary to peritoneal dialysis catheter being obstructed. Patient had laparoscopic revision of PD cath by Dr. Goins on 04/02. Postoperatively patient was hypotensive in PACU. He subsequently underwent hemodialysis and was transferred to the ICU. He has been complaining of significant right sided lower abdominal pain following his surgery. Critical care medicine consulted by Dr. Goins for hypotension and tachycardia. Patient was also noted to have leukocytosis today raising concern for sepsis. Blood cultures were ordered and patient was initiated on IV vancomycin, Levaquin and Flagyl for empiric antibiotic coverage. Intraoperative note by reviewed: the PD catheter was not visible at the intra abdominal site and small bowel adhesion was noted along with other adhesions. No purulence noted or pockets of fluid based on review of note. Intraop cath culture no growth on regular aerobic anaerobic cultures. Patient received Clindamycin and Vanco IV perioperatively and RN informs me he has a desquamating rash all over his body. These two antibiotics were discontinued and patient is now on Levaquin and Flagyl IV. Patient is sitting up in bed in ICU. Appears irritable but other mehta vitals are ok. Good UO. Bp ok. No fevers. Not on pressors. Of note, patient is on HIV medications but reports not seeing any ID doctor as outpatient. He is on HAART with no follow up. His PMHx is also significant for bacteremia as well as Strep pneumo meningitis. ID consulted for evaluation and management of sepsis and infected secondary peritonitis secondary to peritoneal dialysis catheter. Overnight events reviewed No fevers No diarrhea Complains of increasing desquamation but denies itching. Reports mouth sores Reports eye discomfort. Vision ok. Antibiotics Levaquin Flagyl Lines Line sites with no e.o infection Past Medical History End-stage renal disease on peritoneal dialysis History of lymphoma details not known. Bilateral amputations of the lower extremities Left upper extremity amputation HIV, last CD4 cell count 275 on 02/03/17. Patient reports he has no HIV doctor. Seizure disorder h/o non compliance h/o signing off AMA in past. Permacath Bilateral lower and left upper extremity amputations at age 12 Splenectomy Allergies: Coded Allergies: amoxicillin (Verified Allergy, Severe, rash all over, 04/02/17) clindamycin (Verified Allergy, Severe, Desquamating rash, 04/06/17) penicillin G (Verified Allergy, Severe, Anaphylaxis, 04/02/17) vancomycin (Verified Allergy, Severe, Desqumating rash, 04/06/17) Objective . Vital Signs Date Time Temp Pulse Resp B/P (MAP) Pulse Ox O2 Delivery O2 Flow Rate FiO2 04/07/17 06:00 80 04/07/17 04:00 98.7 72 13 135/93 (107) 99 04/07/17 04:00 72 04/07/17 03:32 97 04/07/17 02:00 77 04/07/17 00:00 97.8 83 15 115/75 (88) 99 04/07/17 00:00 83 04/06/17 23:46 100 04/06/17 22:00 65 04/06/17 20:00 81 04/06/17 20:00 98.1 81 14 121/82 (95) 95 04/06/17 19:39 95 04/06/17 17:00 72 15 113/78 (90) 93 04/06/17 16:00 74 28 131/91 (104) 90 04/06/17 15:00 63 15 137/93 (108) 95 04/06/17 14:00 71 13 130/98 (109) 98 . Laboratory Tests Test 04/06/17 12:40 White Blood Count 15.0 TH/MM3 Red Blood Count 4.19 MIL/MM3 Hemoglobin 11.3 GM/DL Hematocrit 34.4 % Mean Corpuscular Volume 82.1 FL Mean Corpuscular Hemoglobin 27.0 PG Mean Corpuscular Hemoglobin Concent 32.9 % Red Cell Distribution Width 16.8 % Platelet Count 217 TH/MM3 Mean Platelet Volume 9.3 FL CBC Comment AUTO DIFF Differential Total Cells Counted 100 Neutrophils % (Manual) 66 % Band Neutrophils % 2 % Lymphocytes % 16 % Monocytes % 7 % Eosinophils % 9 % Neutrophils # (Manual) 10.2 TH/MM3 Nucleated Red Blood Cells 1 /100 WBC Differential Comment FINAL DIFF MANUAL Platelet Estimate NORMAL Platelet Morphology Comment NORMAL Target Cells 1+ [place] Bodies PRESENT Mariano Cells 1+ Acanthocytes OCC Laboratory Tests Test 04/06/17 09:55 Blood Urea Nitrogen 44 MG/DL Creatinine 6.96 MG/DL Random Glucose 73 MG/DL Total Protein 6.7 GM/DL Albumin 2.9 GM/DL Calcium Level 9.1 MG/DL Alkaline Phosphatase 161 U/L Aspartate Amino Transf (AST/SGOT) 25 U/L Alanine Aminotransferase (ALT/SGPT) 17 U/L Total Bilirubin 0.6 MG/DL Sodium Level 132 MEQ/L Potassium Level 4.4 MEQ/L Chloride Level 94 MEQ/L Carbon Dioxide Level 23.4 MEQ/L Anion Gap 15 MEQ/L Estimat Glomerular Filtration Rate 11 ML/MIN Microbiology Date/Time Source Procedure Growth Status 04/06/17 15:20 Sputum Expectorated Sputum Gram Stain - Final Resulted 04/06/17 15:20 Sputum Expectorated Sputum Sputum Culture Pending Resulted Imaging Last Impressions Chest X-Ray 04/06/17 0000 Signed Impressions: Service Date/Time: Thursday, April 06, 2017 07:45 - CONCLUSION: 1. No acute abnormality or significant interval change. Jose Botello MD Abdomen/Pelvis CT 04/03/17 0000 Signed Impressions: Service Date/Time: Monday, April 03, 2017 19:47 - CONCLUSION: 1. Basilar airspace disease in the lungs with some air bronchograms and trace pleural fluid. 2. Atrophic kidneys. Previous splenectomy. 3. Numerous gallstones without biliary ductal dilatation. 4. Peritoneal dialysis catheter with several locules of subcutaneous air in anterior abdominal wall. 5. Mildly enlarged inguinal lymph nodes bilaterally. Rosas Wood MD Abdomen X-Ray 04/03/17 0000 Signed Impressions: Service Date/Time: Monday, April 03, 2017 15:25 - CONCLUSION: 1. No evidence of obstruction. Oliver Perez MD Physical Exam GENERAL: This is a well-nourished, well-developed patient, in no apparent distress. SKIN: Desquamating rash all over the body. ? Oral thrush. HEAD: Atraumatic. Normocephalic. No temporal or scalp tenderness. EYES: Pupils equal round and reactive. Extraocular motions intact. No scleral icterus. No injection or drainage. ENT: Nose without bleeding, purulent drainage or septal hematoma. Throat without erythema, tonsillar hypertrophy or exudate. Uvula midline. Airway patent. NECK: Trachea midline. Supple, nontender, no meningeal signs. CARDIOVASCULAR: Regular rate and rhythm without murmurs, gallops, or rubs. RESPIRATORY: Clear to auscultation. Breath sounds equal bilaterally. No wheezes , rales, or rhonchi. GASTROINTESTINAL: Abdomen soft, non-tender, nondistended. MUSCULOSKELETAL: Bilateral LE amputation sites with no e.o infection. Left UE amputation site with no e.o infection. NEUROLOGICAL: Awake and alert. Grossly non focal. Psych irritable, not cooperative to the fullest. IV line sites with no e.o infection. HD cath site with no e.o infection. Assessment & Plan Remarks Sepsis present on admission(patient is immune compromised HIV positive and may not mount typical signs of sepsis.) Infected peritonitis secondary to peritoneal dialysis catheter. Intra-Op adhesions to bowel noted. Allergy to multiple antibiotics. HIV positive on HAART with no follow up. H/o Lymphoma. H/o seizures H/o non compliance Recs Continue Levaquin change to oral. Continue Flagyl change to oral. Discontinue HIV medications unsure who is prescribing, ? compliance olive in view of worsening drug rash. Aquaphor for local application for desquamating rash. Patient denies any itching. Magic mouth wash for oral sores. Eye drops for eye discomfort. Follow PD cath cultures including AFB and Fungus. It is very important to know who is prescribing his HIV meds and have his HIV care established in community. Follow cultures Follow clinically. D./w RN and pt Roihni Castro MD Apr 07, 2017 13:07
[2017-04-07] MEDS ORDERED: NAPHAZOLINE HCL 0.012% OPHT SOLN 15 ML BOTTLE LEFT EYE PRN (13:15)
[2017-04-07] MEDS: ACETAMINOPHEN/HYDROcodone 325 MG/5 MG TAB PO PRN ×2 (13:18→22:07)
[2017-04-07] MEDS: levETIRAcetam 250 MG TAB PO SCH ×2 (13:19→21:10)
[2017-04-07] MEDS: CALCIUM ACETATE 667 MG CAP PO SCH ×2 (13:20→17:36)
[2017-04-07] MEDS: AQUAPHOR OINT 50 GM TUBE TOPICAL SCH ×2 (13:22→21:13)
[2017-04-07] MEDS: SODIUM CHLORIDE 0.9% FLUSH 10 ML FLUSH IV FLUSH SCH ×2 (13:22→21:11)
--- NOTE | 2017-04-07 13:29 | HHI.PR ---
Subjective Subjective Notes Seen in HD Resting in bed with no complaints Objective Vitals/I&O Vital Signs Date Time Temp Pulse Resp B/P (MAP) Pulse Ox O2 Delivery O2 Flow Rate FiO2 04/07/17 06:00 80 04/07/17 04:00 98.7 13 135/93 (107) 99 04/06/17 08:20 21 04/04/17 19:45 Nasal Cannula 2.00 Labs Date/Time Source Procedure Growth Status 04/03/17 14:30 Blood Peripheral Aerobic Blood Culture - Preliminary NO GROWTH IN 4 DAYS Resulted 04/03/17 14:30 Blood Peripheral Anaerobic Blood Culture - Preliminary NO GROWTH IN 4 DAYS Resulted 04/06/17 15:20 Sputum Expectorated Sputum Gram Stain - Final Resulted 04/06/17 15:20 Sputum Expectorated Sputum Sputum Culture Pending Resulted 04/02/17 11:08 Wound Other Fungal Smear - Final NO FUNGAL ELEMENTS SEEN. Resulted 04/02/17 11:08 Wound Other Fungal Culture Pending Resulted Cardiovascular: Regular Lungs: Clear Abdomen: Other (PD cath in place; abd soft minimally tender ) Narrative Exam multiple amputations A/P Assessment and Plan 26 year old male POD5 PD cath revision -No growth from PD cath swab -VSS -Tolerating renal diet -HD per Nephrology -ID following ---on PO Levaquin/Flagyl -Transfer to floor -DC home maybe tomorrow if no issues overnight Attending Statement patient seen at bedside continues to progress well d/c planning Attestation The exam, history, and the medical decision-making described in the above note were completed with the assistance of the mid-level provider. I reviewed and agree with the findings presented. I attest that I had a [id number] encounter with the patient on the same day, and personally performed and documented my assessment and findings in the medical record. Miri Heller Apr 07, 2017 13:29 Sen Goins MD Apr 09, 2017 11:50
--- NOTE | 2017-04-07 13:45 | HHI.NPPN ---
Subjective History of Present Illness 26 year old with PD catheter change Additional Remarks rash on face Review of Systems General Constitutional: Fever, Fatigue Gastrointestinal Gastrointestinal: Abdominal Pain Objective Data Data Vital Signs Date Time Temp Pulse Resp B/P (MAP) Pulse Ox O2 Delivery O2 Flow Rate FiO2 04/07/17 06:00 80 04/07/17 04:00 98.7 72 13 135/93 (107) 99 04/07/17 04:00 72 04/07/17 03:32 97 04/07/17 02:00 77 04/07/17 00:00 97.8 83 15 115/75 (88) 99 04/07/17 00:00 83 04/06/17 23:46 100 04/06/17 22:00 65 04/06/17 20:00 81 04/06/17 20:00 98.1 81 14 121/82 (95) 95 04/06/17 19:39 95 04/06/17 17:00 72 15 113/78 (90) 93 04/06/17 16:00 74 28 131/91 (104) 90 04/06/17 15:00 63 15 137/93 (108) 95 04/06/17 14:00 71 13 130/98 (109) 98 -: 04/06/17 1240 04/06/17 0955 Microbiology 04/06/17 Gram Stain - Final, Resulted 04/06/17 Sputum Culture, Resulted Pending Physical Exam General Appearance: Well Developed Neck Neck Exam: Neck Supple Pulmonary Resp Exam: Clear Bilaterally Cardiology CV Exam: Tachycardia Gastrointestinal/Abdomen GI Exam: Soft GI Remarks tender Extremeties Extremeties Remarks multiple amputation Assessment/Plan Problem List: (1) ESRD (end stage renal disease) on dialysis ICD Codes: N18.6 - End stage renal disease; Z99.2 - Dependence on renal dialysis Plan: Patient doing better has rash on face HIV medications stopped ? drug reaction sepsis on Levaquin/metronidazole/ CT scan done [facility] HD TTS received today 1.5 L UF (2) HIV (human immunodeficiency virus infection) ICD Codes: Z21 - Asymptomatic human immunodeficiency virus [HIV] infection status Status: Chronic Plan: He is on outpatient medications (3) Peritoneal dialysis catheter dysfunction ICD Codes: T85.611A - Breakdown (mechanical) of intraperitoneal dialysis catheter, initial encounter Plan: Replaced Mireya Eduardo MD Apr 07, 2017 13:45
[2017-04-07] MEDS: HEPARIN SODIUM - SQ 10,000 UNITS/ML VIAL SQ SCH (17:00)
[2017-04-07] MEDS: NYSTAT/DIPHENHY/LIDO MOUTHWASH (Adult) 120ML SWISH-SWAL SCH ×2 (17:36→21:11)
[2017-04-07 19:00] LABS: HEMATOCRIT 37.1 % (39.0-51.0); MEAN CORPUSCULAR HEMOGLOBIN 26.5 PG (27.0-34.0); MEAN CORPUSCULAR HGB CONC 32.3 % (32.0-36.0); MEAN PLATELET VOLUME 9.2 FL (7.0-11.0); PLATELET COUNT 183 TH/MM3 (150-450); RED BLOOD COUNT 4.52 MIL/MM3 (4.50-5.90); RED CELL DISTRIBUTION WIDTH 16.8 % (11.6-17.2); WHITE BLOOD COUNT 10.6 TH/MM3 (4.0-11.0)
[2017-04-07 19:33] LABS: ALKALINE PHOSPHATASE 158 U/L (45-117); ALT (GPT) 14 U/L (12-78); AST (GOT) 13 U/L (15-37); BICARBONATE 28.5 MEQ/L (21.0-32.0); BLOOD UREA NITROGEN 20 MG/DL (7-18); CALCIUM 9.4 MG/DL (8.5-10.1); CHLORIDE 91 MEQ/L (98-107); GLOMERULAR FILTRATION RATE 19 ML/MIN (>89); GLUCOSE,RANDOM 109 MG/DL (74-106); SODIUM (NA) 131 MEQ/L (136-145); TOTAL BILIRUBIN ADULT 0.5 MG/DL (0.2-1.0); TOTAL PROTEIN 7.5 GM/DL (6.4-8.2)
[2017-04-07 19:49] LABS: BANDS 2 % (0-6); CORRECTED NUCLEATED RBC 6 /100 WBC (0-0); LYMPHOCYTES 25 % (9-44); MONOCYTES 11 % (0-8); NEUTROPHIL # MANUAL DIFF 5.4 TH/MM3 (1.8-7.7); NUCLEATED RED BLOOD CELL 6 (0-0); POLYS (SEG NEUTROPHILS) 49 % (16-70)
[2017-04-07 19:51] LABS: HOWELL-JOLLY BODIES PRESENT (NONE SEEN); TARGET CELLS 1+ (NORMAL)
[2017-04-07] MEDS: FAMOTIDINE 20 MG TAB PO SCH (21:10)
[2017-04-08] VITALS (9 sets, daily range): BP systolic 108–124; BP diastolic 70–93; PULSE 75–92; RESP 30–31; TEMP 98.8–99.1; O2SAT 94–97
[2017-04-08] MEDS: ACETAMINOPHEN/HYDROcodone 325 MG/5 MG TAB PO PRN (04:39)
[2017-04-08] MEDS: HEPARIN SODIUM - SQ 10,000 UNITS/ML VIAL SQ SCH (05:00)
[2017-04-08] MEDS: metroNIDAZOLE 500 MG TAB PO SCH (05:46)
[2017-04-08 05:47] LABS: AUTOMATED NEUTROPHIL # 5.4 TH/MM3 (1.8-7.7); BASOPHIL # 0.6 TH/MM3 (0-0.2); BASOPHIL % 4.6 % (0.0-2.0); EOSINOPHIL % 8.1 % (0.0-4.0); HEMATOCRIT 38.1 % (39.0-51.0); HEMOGLOBIN 12.1 GM/DL (13.0-17.0); LYMPH % 25.8 % (9.0-44.0); LYMPHOCYTE # 3.2 TH/MM3 (1.0-4.8); MEAN CELL VOLUME 82.5 FL (80.0-100.0); MEAN CORPUSCULAR HEMOGLOBIN 26.2 PG (27.0-34.0); MEAN CORPUSCULAR HGB CONC 31.8 % (32.0-36.0); MEAN PLATELET VOLUME 9.1 FL (7.0-11.0); MONO % 18.7 % (0.0-8.0); MONOCYTE # 2.3 TH/MM3 (0-0.9); NEUT % 42.8 % (16.0-70.0); PLATELET COUNT 196 TH/MM3 (150-450); RED BLOOD COUNT 4.61 MIL/MM3 (4.50-5.90); WHITE BLOOD COUNT 12.5 TH/MM3 (4.0-11.0)
[2017-04-08 06:06] LABS: BICARBONATE 29.5 MEQ/L (21.0-32.0); CALCIUM 10.1 MG/DL (8.5-10.1); CREATININE 5.39 MG/DL (0.60-1.30)
--- NOTE | 2017-04-08 07:36 | HHI.CCPN ---
Subjective Remarks/Hospital Course 04/03: Patient is a 26 with history of ESRD on peritoneal dialysis, HIV, and s/p amputations of limbs who was admitted secondary to peritoneal dialysis catheter being obstructed. Patient had laparoscopic revision of PD cath by Dr. Goins on 04/02. Postoperatively patient was hypotensive in PACU. He subsequently underwent hemodialysis and was transferred to the ICU. Overnight patient has remained tachycardic and developed low blood pressures with systolic in the 80s. He is otherwise awake and alert denies any chest pain or shortness of breath. Denies any fevers or chills. Denies any nausea or vomiting. He has been complaining of significant right sided lower abdominal pain following his surgery. Critical care medicine consulted by Dr. Goins for hypotension and tachycardia. Patient was also noted to have leukocytosis today raising concern for sepsis. When I evaluated the patient he was laying in bed complaining of right sided abdominal pain. Blood cultures were ordered and patient was initiated on IV vancomycin, Levaquin and Flagyl for empiric antibiotic coverage. He did receive a fluid bolus earlier with normal saline. 04/04: Resting in bed. Complains of persistent right lower abdominal pain. CT abdomen pelvis done last night did not reveal any evidence of free air or other acute pathology except postop changes related to PD catheter placement. 04/05: clinically improving. sleeping in bed. arousable, but did not want to interact or answer questions. does deny abdominal pain. later in the day, complained of burning around multiple skin lesions. patient thought these were related to antibiotic use. clinically appear to be older scaling patchy areas. there are no areas of desquamated skin or bullous disease. no mucosal involvement. 04/06 Patient is lying in bed in NAD. Afebrile. 04/07 Patient denies any complaints, on room air oxygen. Afebrile. Awaiting transfer out ICU. 04/08 No events overnight. On room air oxygen. Afebrile. Objective Vital Signs Date Time Temp Pulse Resp B/P (MAP) Pulse Ox O2 Delivery O2 Flow Rate FiO2 04/08/17 06:00 75 04/08/17 04:00 98.8 31 118/76 (90) 97 04/07/17 20:08 21 04/04/17 19:45 Nasal Cannula 2.00 Intake and Output 04/08/17 04/08/17 04/09/17 08:00 16:00 00:00 Intake Total 240 ml Output Total 250 ml Balance -10 ml Result Diagram: 04/08/17 0436 04/08/17 0436 Other Results Laboratory Tests Test 04/07/17 17:27 04/08/17 04:36 White Blood Count 10.6 TH/MM3 12.5 TH/MM3 Red Blood Count 4.52 MIL/MM3 4.61 MIL/MM3 Hemoglobin 12.0 GM/DL 12.1 GM/DL Hematocrit 37.1 % 38.1 % Mean Corpuscular Volume 82.0 FL 82.5 FL Mean Corpuscular Hemoglobin 26.5 PG 26.2 PG Mean Corpuscular Hemoglobin Concent 32.3 % 31.8 % Red Cell Distribution Width 16.8 % 17.0 % Platelet Count 183 TH/MM3 196 TH/MM3 Mean Platelet Volume 9.2 FL 9.1 FL CBC Comment AUTO DIFF AUTO DIFF Differential Total Cells Counted 100 Neutrophils % (Manual) 49 % Band Neutrophils % 2 % Lymphocytes % 25 % Monocytes % 11 % Eosinophils % 13 % Neutrophils # (Manual) 5.4 TH/MM3 Nucleated Red Blood Cells 6 /100 WBC Differential Comment FINAL DIFF MANUAL Platelet Estimate NORMAL Platelet Morphology Comment ENLARGED Target Cells 1+ [place] Bodies PRESENT Blood Urea Nitrogen 20 MG/DL 30 MG/DL Creatinine 4.60 MG/DL 5.39 MG/DL Random Glucose 109 MG/DL 93 MG/DL Total Protein 7.5 GM/DL Albumin 3.0 GM/DL Calcium Level 9.4 MG/DL 10.1 MG/DL Alkaline Phosphatase 158 U/L Aspartate Amino Transf (AST/SGOT) 13 U/L Alanine Aminotransferase (ALT/SGPT) 14 U/L Total Bilirubin 0.5 MG/DL Sodium Level 131 MEQ/L 132 MEQ/L Potassium Level 3.6 MEQ/L 3.3 MEQ/L Chloride Level 91 MEQ/L 91 MEQ/L Carbon Dioxide Level 28.5 MEQ/L 29.5 MEQ/L Anion Gap 12 MEQ/L 12 MEQ/L Estimat Glomerular Filtration Rate 19 ML/MIN 15 ML/MIN Neutrophils (%) (Auto) 42.8 % Lymphocytes (%) (Auto) 25.8 % Monocytes (%) (Auto) 18.7 % Eosinophils (%) (Auto) 8.1 % Basophils (%) (Auto) 4.6 % Neutrophils # (Auto) 5.4 TH/MM3 Lymphocytes # (Auto) 3.2 TH/MM3 Monocytes # (Auto) 2.3 TH/MM3 Eosinophils # (Auto) 1.0 TH/MM3 Basophils # (Auto) 0.6 TH/MM3 Imaging Last Impressions Chest X-Ray 04/06/17 0000 Signed Impressions: Service Date/Time: Thursday, April 06, 2017 07:45 - CONCLUSION: 1. No acute abnormality or significant interval change. Jose Botello MD Abdomen/Pelvis CT 04/03/17 0000 Signed Impressions: Service Date/Time: Monday, April 03, 2017 19:47 - CONCLUSION: 1. Basilar airspace disease in the lungs with some air bronchograms and trace pleural fluid. 2. Atrophic kidneys. Previous splenectomy. 3. Numerous gallstones without biliary ductal dilatation. 4. Peritoneal dialysis catheter with several locules of subcutaneous air in anterior abdominal wall. 5. Mildly enlarged inguinal lymph nodes bilaterally. Rosas Wood MD Abdomen X-Ray 04/03/17 0000 Signed Impressions: Service Date/Time: Monday, April 03, 2017 15:25 - CONCLUSION: 1. No evidence of obstruction. Oliver Perez MD Objective Remarks HEENT/Neuro: Pallor present, No icterus, tongue moist, WEST, Awake alert oriented 3, nonfocal grossly, moving all extremities Neck: No JVD Chest/pulmonary: CTA bilaterally Cardiovascular: S1-S2 regular no gallop or murmur GI/abdomen: Soft, nontender, nondistended. no guarding. Extremities: Warm bilaterally, no edema. Bilateral lower extremity amputations , left upper extremity amputation noted. skin: multiple small patchy areas of scaly skin, tender to palpation. no areas of desquamation, erythema, or bullous disease. no open sores. no mucosal involvement. primarily upper chest, shoulders, back of neck. I have nothing to compare this to, but patient reports these are new today. A/P Assessment and Plan Assessment: 26yM with ESRD and HIV who presents with nonfunctioning PD catheter and sepsis, no clinically improving. Unclear etiology of skin lesions. While patient thinks these are associated with iv antibiotics, these do not have the appearance of TEN or SJS in any way. Will ask ID to weigh in and lend their opinion and recommendation, particularly in the setting of HIV. Nephrology also involved. this appears less-likely to be calciphylaxis, and serum calcium and phosphorus levels are wnl. Overall, patient clinically improving and stable for transfer out of ICU. will consult hospitalist for ongoing management. Awaiting transfer to floor. Hypotension - resolved. Tachycardia- resolved. Leukocytosis- improving. Sepsis Nonfunctioning PD catheter status post revision 04/02 Anemia- chronic. stable. ESRD on hemodialysis HIV History of splenectomy H/o seizure H/o lymphoma Plan: Neuro: Follow neuro status. Pain medications as needed. Continue Keppra Awake and alert Cardiovascular: Receive 250 cc NS bolus on 04/03. Monitor HR and BP keep MAP>65mmHg Pulmonary: Supplemental O2 as needed keep sats >92%. CXR1/8 -no acute changes GI/liver: On PO diet Renal/: On hemodialysis per nephrology. PD catheter revised on 04/[address] Goins. Monitor renal function, I/O's, avoid nephrotoxins ID: Abx per ID- on Levaquin/Flagyl . Blood cultures 2 ordered on 04/03, NGTD. HIV meds d/c by ID. ID is following. Follow up on cxs. Follow up on CD4 count. CT abdomen/pelvis: Basilar airspace disease in the lungs with some air bronchograms and trace pleural fluid.. Atrophic kidneys. Previous splenectomy. Numerous gallstones without biliary ductal dilatation. Peritoneal dialysis catheter with several locules of subcutaneous air in anterior abdominal wall . Heme: Follow CBC. On Epogen with HD Endocrine: SSI for glycemic control if needed Prophylaxis: subcutaneous heparin for DVT prophylaxis Level 2 Meliza Kramer MD Apr 08, 2017 07:36
[2017-04-08 08:16] LABS: BANDS 1 % (0-6); CORRECTED NUCLEATED RBC 3 /100 WBC (0-0); LYMPHOCYTES 24 % (9-44); METAMYELOCYTES 2 % (0-1); MONOCYTES 31 % (0-8); MYELOCYTES 1 % (0-0); NUCLEATED RED BLOOD CELL 3 (0-0); PLASMA CELLS 1 % (0-0); POLYS (SEG NEUTROPHILS) 28 % (16-70)
[2017-04-08 08:17] LABS: TARGET CELLS 1+ (NORMAL)
[2017-04-08] MEDS: AQUAPHOR OINT 50 GM TUBE TOPICAL SCH (09:00)
[2017-04-08] MEDS: NYSTAT/DIPHENHY/LIDO MOUTHWASH (Adult) 120ML SWISH-SWAL SCH (09:00)
[2017-04-08] MEDS: DOCUSATE SODIUM 100 MG CAP PO SCH (09:00)
[2017-04-08] MEDS: levETIRAcetam 250 MG TAB PO SCH (10:01)
[2017-04-08] MEDS: CALCIUM ACETATE 667 MG CAP PO SCH (10:01)
[2017-04-08] MEDS ORDERED: HYDR-3516 PO (12:19)
[2017-04-08] MEDS ORDERED: METR-1 PO (12:19)
[2017-04-08] MEDS ORDERED: LEVA250T14 PO (12:19)
--- NOTE | 2017-04-08 12:23 | HHI.PR ---
Addendum to Inpatient Note Addendum Reason: Additional Documentation Additional Information D/w Miri GARAY for surgery Ok to DC home on oral levaquin and oral flagyl for 10 more days. Would not recommend continuing HIV meds on discharge as patient has no ID physician established and reports his PCP has been given this regime to him for years. Genotype not known. Who initiated this regimen not known. Recommend follow up with an ID physician as outpatient to establish HIV care with HIV viral load/PCR , Genotype if indicated, CD4 etc to assess response to meds etc. Patient is not cooperative and forth coming of the HIV information and gets irritable. Given his diffuse desquamating rash would recommend no HIV meds on discharge. Will sign off please call back if any change in clinical condition or questions. Rohini Castro MD Apr 08, 2017 12:23
--- NOTE | 2017-04-08 13:08 | HHI.NPPN ---
Subjective History of Present Illness 26 year old with PD catheter change Additional Remarks rash on face Review of Systems General Constitutional: Fever, Fatigue Gastrointestinal Gastrointestinal: Abdominal Pain Objective Data Data Vital Signs Date Time Temp Pulse Resp B/P (MAP) Pulse Ox O2 Delivery O2 Flow Rate FiO2 04/08/17 10:00 92 04/08/17 09:58 96 04/08/17 08:00 92 04/08/17 08:00 98.8 86 30 108/70 (83) 97 04/08/17 06:00 75 04/08/17 04:00 86 04/08/17 04:00 98.8 86 31 118/76 (90) 97 04/08/17 02:00 88 04/08/17 00:00 80 04/08/17 00:00 99.1 80 30 124/93 (103) 94 04/07/17 23:07 29 04/07/17 22:00 83 04/07/17 20:08 97 21 04/07/17 20:00 92 04/07/17 20:00 98.9 92 23 117/79 (92) 96 04/07/17 16:37 93 21 04/07/17 16:00 109 23 108/77 (87) 97 04/07/17 15:00 95 26 114/79 (91) 94 04/07/17 14:00 101 14 116/87 (97) 96 -: 04/08/17 0436 04/08/17 0436 Physical Exam General Appearance: Well Developed Neck Neck Exam: Neck Supple Pulmonary Resp Exam: Clear Bilaterally Cardiology CV Exam: Tachycardia Gastrointestinal/Abdomen GI Exam: Soft GI Remarks tender Extremeties Extremeties Remarks multiple amputation Assessment/Plan Problem List: (1) ESRD (end stage renal disease) on dialysis ICD Codes: N18.6 - End stage renal disease; Z99.2 - Dependence on renal dialysis Plan: Patient doing better has rash on face HIV medications stopped ? drug reaction sepsis resolved HD TTS received yesterday 1.5 L UF dc today follow up with Dr. Solis (2) HIV (human immunodeficiency virus infection) ICD Codes: Z21 - Asymptomatic human immunodeficiency virus [HIV] infection status Status: Chronic Plan: He is on outpatient medications (3) Peritoneal dialysis catheter dysfunction ICD Codes: T85.611A - Breakdown (mechanical) of intraperitoneal dialysis catheter, initial encounter Plan: Replaced Mireya Eduardo MD Apr 08, 2017 13:08
--- NOTE | 2017-04-08 14:39 | HHI.DS ---
Discharge Summary Admission Date Apr 03, 2017 at 06:27 Discharge Date: Apr 08, 2017 Admitting Diagnosis Brief History 26 year old male s/p PD cath revision CBC/BMP: 04/08/17 0436 04/08/17 0436 Significant Findings Laboratory Tests Test 04/06/17 09:55 04/06/17 12:40 04/07/17 17:27 04/08/17 04:36 Blood Urea Nitrogen 44 MG/DL (7-18) 20 MG/DL (7-18) 30 MG/DL (7-18) Creatinine 6.96 MG/DL (0.60-1.30) 4.60 MG/DL (0.60-1.30) 5.39 MG/DL (0.60-1.30) Random Glucose 73 MG/DL (74-106) 109 MG/DL (74-106) Albumin 2.9 GM/DL (3.4-5.0) 3.0 GM/DL (3.4-5.0) Alkaline Phosphatase 161 U/L (45-117) 158 U/L (45-117) Sodium Level 132 MEQ/L (136-145) 131 MEQ/L (136-145) 132 MEQ/L (136-145) Chloride Level 94 MEQ/L (98-107) 91 MEQ/L (98-107) 91 MEQ/L (98-107) Estimat Glomerular Filtration Rate 11 ML/MIN (>89) 19 ML/MIN (>89) 15 ML/MIN (>89) White Blood Count 15.0 TH/MM3 (4.0-11.0) 12.5 TH/MM3 (4.0-11.0) Red Blood Count 4.19 MIL/MM3 (4.50-5.90) Hemoglobin 11.3 GM/DL (13.0-17.0) 12.0 GM/DL (13.0-17.0) 12.1 GM/DL (13.0-17.0) Hematocrit 34.4 % (39.0-51.0) 37.1 % (39.0-51.0) 38.1 % (39.0-51.0) Eosinophils % 9 % (0-4) 13 % (0-4) 12 % (0-4) Neutrophils # (Manual) 10.2 TH/MM3 (1.8-7.7) Nucleated Red Blood Cells 1 /100 WBC (0-0) 6 /100 WBC (0-0) 3 /100 WBC (0-0) Target Cells 1+ (NORMAL) 1+ (NORMAL) 1+ (NORMAL) Mariano Cells 1+ (NORMAL) Mean Corpuscular Hemoglobin 26.5 PG (27.0-34.0) 26.2 PG (27.0-34.0) Monocytes % 11 % (0-8) 31 % (0-8) Platelet Morphology Comment ENLARGED (NORMAL) ENLARGED (NORMAL) Aspartate Amino Transf (AST/SGOT) 13 U/L (15-37) Mean Corpuscular Hemoglobin Concent 31.8 % (32.0-36.0) Monocytes (%) (Auto) 18.7 % (0.0-8.0) Eosinophils (%) (Auto) 8.1 % (0.0-4.0) Basophils (%) (Auto) 4.6 % (0.0-2.0) Monocytes # (Auto) 2.3 TH/MM3 (0-0.9) Eosinophils # (Auto) 1.0 TH/MM3 (0-0.4) Basophils # (Auto) 0.6 TH/MM3 (0-0.2) Metamyelocytes 2 % (0-1) Myelocytes 1 % (0-0) Plasma Cells 1 % (0-0) Potassium Level 3.3 MEQ/L (3.5-5.1) PE at Discharge Alert and awake Cardio: RRR Resp: CTAB Abd; PD cath in place; lap sites c/d/i; non tender multiple amputations Hospital Course This is a 26 year old male s/p PD cath revision. Post operatively that patient was hypotensive and tachycardic. He was admitted to the [facility] and followed by CCM. The patient's diet was advanced as tolerated. The patient was followed by ID. The patient was started on antibiotics. His vital signs improved. He will discontinue his traditional hemodialysis. The patient's pain was controlled using oral pain medication. ID recommended stopping HIV medications and having him follow up with his PCP for management. He was given prescriptions for antibiotics and pain medication. The patient will follow-up in the office as indicated on discharge patient. Pt Condition on Discharge: Good Discharge Disposition: Discharge Home Discharge Instructions DIET: Follow Instructions for: Renal Failure Diet Activities you can perform: Regular-No Restrictions Other Activity Instructions: Okay to shower; pat incisions Miri Rasmussen Apr 08, 2017 14:39
== END 2017-04-08 14:45 | disposition home or self-care (01) | DRG 981 ==
LOC: HSDC 08:06 → HSDI 10:19 → HIMW 16:45 → OBSVTOIN 04-03 06:27
PROVIDERS: ADMIT Surgery; ATTEND Surgery
PROC: 0WWG43Z Revision of Infusion Device in Peritoneal Cavity, Percutaneous Endoscopic Approach (ICD-10-PCS; principal; 2017-04-02 10:03)
PROC: 30233N1 Transfusion of Nonautologous Red Blood Cells into Peripheral Vein, Percutaneous Approach (ICD-10-PCS; 2017-04-04)
PROC: 3E1M39Z Irrigation of Peritoneal Cavity using Dialysate, Percutaneous Approach (ICD-10-PCS; 2017-04-04)
DX: T85.621A Displacement of intraperitoneal dialysis catheter, initial encounter (principal); N18.6 End stage renal disease; A41.9 Sepsis, unspecified organism; K65.9 Peritonitis, unspecified; T85.71XA Infection and inflammatory reaction due to peritoneal dialysis catheter, initial encounter; Y83.8 Other surgical procedures as the cause of abnormal reaction of the patient, or of later complication, without mention of misadventure at the time of the procedure; G40.909 Epilepsy, unspecified, not intractable, without status epilepticus; Z21 Asymptomatic human immunodeficiency virus [HIV] infection status; I95.81 Postprocedural hypotension; K66.0 Peritoneal adhesions (postprocedural) (postinfection); K80.20 Calculus of gallbladder without cholecystitis without obstruction; D64.9 Anemia, unspecified; L27.0 Generalized skin eruption due to drugs and medicaments taken internally; R00.0 Tachycardia, unspecified; Z99.2 Dependence on renal dialysis; Z85.72 Personal history of non-Hodgkin lymphomas; Z89.511 Acquired absence of right leg below knee; Z86.61 Personal history of infections of the central nervous system; Z89.512 Acquired absence of left leg below knee; Z89.212 Acquired absence of left upper limb below elbow; Z90.81 Acquired absence of spleen
CPT/HCPCS: 36430; 71045; 74018; 74177; 80048; 80053; 82533; 83605; 85007; 85025; 85027; 85610; 85730; 86355; 86357; 86359; 86360; 86850; 86900; 86901; 86920; 87015; 87040; 87070; 87102; 87116; 87205; 87206; 87535; 87641; 90935; 93005; 96374; 96375; J1580; J1644; J1956; J2250; J2370; J2405; J2710; J3010; J3370; J7030; J7040; J7050; J7120; P9016; P9047; Q4081; Q9963; Q9967

== ENCOUNTER 2017-05-20 00:06 | Inpatient (IN) | payer MEDICARE, OTHER ==
[2017-05-20] VITALS (8 sets, daily range): BP systolic 95–119; BP diastolic 58–74; PULSE 84–111; RESP 16–20; TEMP 96.4–98.4; O2SAT 96–98
[~2017-05-20] VITALS: Ht 165.1 cm; Wt 45.0 kg
[~2017-05-20 00:06] MED LIST changes: +HYDR-3516 PO; +LEVA250T14 PO; +METR-1 PO
[2017-05-20 02:07] LABS: AUTOMATED NEUTROPHIL # 6.4 TH/MM3 (1.8-7.7); BASOPHIL # 0.1 TH/MM3 (0-0.2); BASOPHIL % 0.6 % (0.0-2.0); EOSINOPHIL # 0.9 TH/MM3 (0-0.4); EOSINOPHIL % 7.2 % (0.0-4.0); HEMATOCRIT 38.4 % (39.0-51.0); HEMOGLOBIN 12.1 GM/DL (13.0-17.0); LYMPH % 29.7 % (9.0-44.0); LYMPHOCYTE # 3.8 TH/MM3 (1.0-4.8); MEAN CELL VOLUME 83.3 FL (80.0-100.0); MEAN CORPUSCULAR HEMOGLOBIN 26.4 PG (27.0-34.0); MEAN CORPUSCULAR HGB CONC 31.6 % (32.0-36.0); MEAN PLATELET VOLUME 9.4 FL (7.0-11.0); MONOCYTE # 1.5 TH/MM3 (0-0.9); NEUT % 50.5 % (16.0-70.0); PLATELET COUNT 406 TH/MM3 (150-450); RED BLOOD COUNT 4.61 MIL/MM3 (4.50-5.90); RED CELL DISTRIBUTION WIDTH 16.6 % (11.6-17.2); WHITE BLOOD COUNT 12.6 TH/MM3 (4.0-11.0)
--- NOTE | 2017-05-20 02:14 | PD ---
HPI Chief Complaint: Altered Mental Status Time Seen by Provider: 01:23 Travel History International Travel<30 days: No Contact w/Intl Traveler<30days: No Traveled to known affect area: No History of Present Illness HPI The patient is 26 year old male who presents to the [facility] emergency department with a history of chronic renal failure on hemodialysis over the last month. He decided to switch to peritoneal dialysis 2 weeks ago. He last did his his dialysis at home 2 days ago. He is not sure why he did not do it last night. He has been altered according to his aunt that is at the bedside. He normally takes care of himself at home and administers his own medications, however he has not been taking his medications regularly. She reports that today she witnessed him having to staring type seizures. He is normally on Keppra for the seizures, however he ran out a couple of days ago. The patient has a known history of HIV. The patient was diagnosed in childhood. He reportedly is taking retroviral medications on a regular basis. Otherwise on review of systems, he denies having any known recent fevers, cough, congestion, neck pain, chest pain, shortness of breath, abdominal pain, vomiting, diarrhea, urinary symptoms, one-sided weakness, slurred speech, dizziness, facial droop, or difficulty with word finding ability. His PCP is Dr. Alfonzo Branch. 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 Autoimmune Disease: Yes (HIV) Blood Disorders: Yes (bone marrow transplant) Anxiety: No Depression: No Cancer: Yes (lymphoma age 10-11) Cardiovascular Problems: No Chemotherapy: Yes Cerebrovascular Accident: No Diabetes: No Dialysis: Yes (peritneal) Diminished Hearing: No Endocrine: No Gastrointestinal Disorders: No Genitourinary: Yes (hemodialysis //) Headaches: Yes Hepatitis: No Hiatal Hernia: No Immune Disorder: Yes (HIV) Implanted Vascular Access Dvce: Yes Kidney Stones: No Musculoskeletal: Yes (bilateral BKA) Neurologic: No Psychiatric: No Reproductive: No Respiratory: No Migraines: No Radiation Therapy: Yes Renal Failure: Yes (esrd) Seizures: Yes Thyroid Disease: No Tetanus Vaccination: Unknown Influenza Vaccination: Yes Past Surgical History Narrative Surgical The patient's past surgical history is significant for permacath placement, peritoneal dialysis catheter placement, left upper extremity amputation, bilateral lower extremity amputation. Abdominal Surgery: Yes (PD catheter and revision) AICD: No Arteriovenous Shunt: No Body Medical Devices: HD permacath, PD cath Cardiac Surgery: No Ear Surgery: No Endocrine Surgery: No Eye Surgery: No Genitourinary Surgery: No Gynecologic Surgery: No Insulin Pump: No Joint Replacement: No Neurologic Surgery: No Oral Surgery: No Pacemaker: No Thoracic Surgery: No Other Surgery: Yes (BILATERAL LOWER LEG AND LEFT ARM AMPUTATION) Social History Alcohol Use: Yes (OCC) Tobacco Use: No Substance Use: Yes (marijuana) Allergies-Medications (Allergen,Severity, Reaction): Coded Allergies: amoxicillin (Verified Allergy, Severe, rash all over, 05/20/17) clindamycin (Verified Allergy, Severe, Desquamating rash, 05/20/17) penicillin G (Verified Allergy, Severe, Anaphylaxis, 05/20/17) vancomycin (Verified Allergy, Severe, Desqumating rash, 05/20/17) Reported Meds & Prescriptions Reported Meds & Active Scripts Active Levaquin (Levofloxacin) 250 Mg Tablet 250 Mg PO Q48H 10 Days Hydrocodone-Acetamin 5-325 mg (Hydrocodone/Acetaminophen) 5 Mg-325 Mg Tablet 1 Tab PO Q4H PRN Calcium Acetate (Calcium Acetate (Phosphate Bin) 667 Mg Cap 1,334 Mg PO TID Norvir (Ritonavir) 100 Mg Cap 100 Mg PO BID Epivir (Lamivudine) 150 Mg Tab 150 Mg PO DAILY *Fill this 5 day prescription first and begin taking Epivir 12 hours after the first dose received in the Emergency Department as prescribed.* Lexiva (Fosamprenavir Calcium) 700 Mg Tab 1 Tab PO BID Ziagen (Abacavir Sulfate) 300 Mg Tab 300 Mg PO BID Hazardous agent; use appropriate precautions for handling & disposal. Keppra (Levetiracetam) 250 Mg Tab 750 Mg PO Q12HR Famotidine 20 Mg Tab 20 Mg PO HS Review of Systems Except as stated in HPI: all other systems reviewed are Neg General / Constitutional: No: Fever Eyes: No: Visual changes HENT: No: Headaches Cardiovascular: No: Chest Pain or Discomfort Respiratory: No: Shortness of Breath Gastrointestinal: No: Abdominal Pain Genitourinary: No: Dysuria Musculoskeletal: No: Pain Skin: No Rash Neurologic: Positive: Weakness (Generalized weakness), Change in Mentation, Seizures, No: Focal Abnormalities, Slurred Speech, Sensory Disturbance Psychiatric: No: Depression Endocrine: No: Polydipsia Hematologic/Lymphatic: No: Easy Bruising Physical Exam Narrative General: The patient is a well-developed well-nourished male in no acute distress. The patient is quiet on exam. The patient does not answer many other questions or just states I do not know. His aunt is providing most of his history of the bedside. Head and Neck exam: Head is normocephalic atraumatic. Eyes: EOMI, pupils are equal round and reactive to light. Nose: Midline septum with pink mucous membranes Mouth: Dentition unremarkable. Moist mucus membranes. Posterior oropharynx is not erythematous. No tonsillar hypertrophy. Uvula midline. Airway patent. Neck: No palpable lymphadenopathy. No nuchal rigidity. No thyromegaly. Cardiovascular: Regular rate and rhythm without murmurs, gallops, or rubs. Lungs: Clear to auscultation bilaterally. No wheezes, rhonchi, or rales. Abdomen: Soft, without tenderness to palpation in all 4 quadrants of the abdomen. No guarding, rebound, or rigidity. N normal bowel sounds are audible. No tenderness on palpation of McBurney's point. Negative Leon sign. The patient has a peritoneal dialysis catheter in place, the bandage appears to be dirty. Otherwise the catheter appears to be intact. There is no surrounding erythema around the entrance site. No drainage. Extremities: No clubbing, cyanosis, or edema. 2+ pulses in all 4 extremities. Back: No spinous process tenderness to palpation. No costovertebral angle tenderness to palpation. Neurologic Exam: Cranial nerves 2-12 were intact on exam. Strength is 5/5 in all 4 extremities. No sensory deficits noted. Skin Exam: No rash noted. Intact skin that is warm and dry. Data Data Last Documented VS Vital Signs Date Time Temp Pulse Resp B/P (MAP) Pulse Ox O2 Delivery O2 Flow Rate FiO2 05/20/17 02:00 92 20 115/74 (88) 97 Room Air 05/20/17 00:09 98.4 Orders Orders Complete Blood Count With Diff (05/20/17 01:39) Alcohol (Ethanol) (05/20/17 01:39) Drug Screen, Random Urine (05/20/17 01:39) Electrocardiogram (05/20/17 ) Ct Brain W/O Iv Contrast(Rout) (05/20/17 ) Blood Glucose (05/20/17 01:39) Ecg Monitoring (05/20/17 01:39) Iv Access Insert/Monitor (05/20/17 01:39) Oximetry (05/20/17 01:39) Comprehensive Metabolic Panel (05/20/17 01:39) Urinalysis - C+S If Indicated (05/20/17 01:39) Admit Order (Ed Use Only) (05/20/17 04:11) Levetiracetam Inj (Keppra Inj) (05/20/17 04:15) Labs Laboratory Tests Test 05/20/17 01:30 White Blood Count 12.6 TH/MM3 Red Blood Count 4.61 MIL/MM3 Hemoglobin 12.1 GM/DL Hematocrit 38.4 % Mean Corpuscular Volume 83.3 FL Mean Corpuscular Hemoglobin 26.4 PG Mean Corpuscular Hemoglobin Concent 31.6 % Red Cell Distribution Width 16.6 % Platelet Count 406 TH/MM3 Mean Platelet Volume 9.4 FL Neutrophils (%) (Auto) 50.5 % Lymphocytes (%) (Auto) 29.7 % Monocytes (%) (Auto) 12.0 % Eosinophils (%) (Auto) 7.2 % Basophils (%) (Auto) 0.6 % Neutrophils # (Auto) 6.4 TH/MM3 Lymphocytes # (Auto) 3.8 TH/MM3 Monocytes # (Auto) 1.5 TH/MM3 Eosinophils # (Auto) 0.9 TH/MM3 Basophils # (Auto) 0.1 TH/MM3 CBC Comment DIFF FINAL Differential Comment Blood Urea Nitrogen 74 MG/DL Creatinine 12.05 MG/DL Random Glucose 59 MG/DL Total Protein 9.1 GM/DL Albumin 4.0 GM/DL Calcium Level 8.8 MG/DL Alkaline Phosphatase 90 U/L Aspartate Amino Transf (AST/SGOT) 21 U/L Alanine Aminotransferase (ALT/SGPT) 18 U/L Total Bilirubin 0.4 MG/DL Sodium Level 132 MEQ/L Potassium Level 3.4 MEQ/L Chloride Level 88 MEQ/L Carbon Dioxide Level 19.3 MEQ/L Anion Gap 25 MEQ/L Estimat Glomerular Filtration Rate 6 ML/MIN Ethyl Alcohol Level LESS THAN 3 MG/DL MDM Medical Decision Making Medical Screen Exam Complete: Yes Emergency Medical Condition: Yes Medical Record Reviewed: Yes Interpretation(s) Last Impressions Head CT 05/20/17 0000 Signed Impressions: Service Date/Time: Saturday, May 20, 2017 02:38 - CONCLUSION: Negative noncontrast CT Navarro Parisi MD Differential Diagnosis Uremia from peritoneal dialysis noncompliance, versus recurrent seizure activity with altered mentation, versus intracranial abnormality, versus encephalopathy from infection Narrative Course During the course of the patient's emergency department visit, the patient's history, examination, and differential diagnosis were reviewed with the patient. The patient was placed on a post adoption coordinator with oximetry and frequent blood pressure monitoring. The patient had IV access obtained and blood work sent for analysis. The patient had an EKG done on arrival that shows a sinus rhythm heart rate of 93, voltage criteria for LVH are met, no acute ST segment elevation is noted, T waves are inverted in V1. QRS duration is 83 ms, QTC 494 ms. The patient was initially provided Keppra 500 mg IV 1. The patient's laboratory studies were reviewed and remarkable for A white count of 12.7, hemoglobin 12.1, platelets 406 with 12 monocytes. CMP is remarkable for a sodium of 132, potassium 3.4, CO2 19.3, anion gap 25, BUN 74, creatinine 12.05, total protein 9.1. Alcohol level less than 3. CT scan of the brain showed no acute abnormality. The patient's results were discussed with the patient, including the plan of care. I explained that further testing and/ or monitoring is indicated based on the patient's history, examination, and/ or laboratory findings. Therefore, I recommended admission for additional evaluation. The patient expressed understanding and was agreeable with this plan. The patient was admitted to the hospital in stable] condition and sent to a bed under the care of the [facility] service. Physician Communication Physician Communication The patient's case including history, pertinent physical examination findings, and laboratory studies were discussed with . It was agreed that the patient would be admitted to the the [facility] hospitalist service. Diagnosis Primary Impression: Altered mental status Qualified Codes: R40.4 - Transient alteration of awareness Additional Impressions: Increasing frequency of seizure activity Noncompliance with medication regimen Uremic acidosis Admitting Information Admitting Physician Requests: Observation Charmaine Jimenez MD May 20, 2017 02:14
[2017-05-20 02:31] LABS: AST (GOT) 21 U/L (15-37); BICARBONATE 19.3 MEQ/L (21.0-32.0); BLOOD UREA NITROGEN 74 MG/DL (7-18); CALCIUM 8.8 MG/DL (8.5-10.1); CHLORIDE 88 MEQ/L (98-107); GLOMERULAR FILTRATION RATE 6 ML/MIN (>89); GLUCOSE,RANDOM 59 MG/DL (74-106); SODIUM (NA) 132 MEQ/L (136-145)
[2017-05-20 02:34] LABS: ALKALINE PHOSPHATASE 90 U/L (45-117); ALT (GPT) 18 U/L (12-78); TOTAL BILIRUBIN ADULT 0.4 MG/DL (0.2-1.0); TOTAL PROTEIN 9.1 GM/DL (6.4-8.2)
[2017-05-20 02:41] LABS: CREATININE 12.05 MG/DL (0.60-1.30)
--- NOTE | 2017-05-20 03:19 | RADRPT ---
EXAM DATE/TIME: 05/20/2017 02:38 [place] COMPARISON: CT BRAIN W/O CONTRAST, January 16, 2017, 21:27. INDICATIONS : Altered mental status. RADIATION DOSE: 56.35 CTDIvol (mGy) MEDICAL HISTORY : HIV. Renal failure, chronic. Dialysis. SURGICAL HISTORY : None. ENCOUNTER: Initial ACUITY: 1 day PAIN SCALE: 0/10 LOCATION: cranial TECHNIQUE: Multiple contiguous axial images were obtained of the head. Using automated exposure control and adj ustment of the mA and/or kV according to patient size, radiation dose was kept as low as reasonably a chievable to obtain optimal diagnostic quality images. DICOM format image data is available electro nically for review and comparison. FINDINGS: CEREBRUM: The ventricles are normal for age. No evidence of midline shift, mass lesion, hemorrhage or acute in farction. No extra-axial fluid collections are seen. POSTERIOR FOSSA: The cerebellum and brainstem are intact. The 4th ventricle is midline. The cerebellopontine angle i s unremarkable. EXTRACRANIAL: The visualized portion of the orbits is intact. SKULL: The calvaria is intact. No evidence of skull fracture. CONCLUSION: Negative noncontrast CT Navarro Parisi MD on May 20, 2017 at 3:16 Board Certified Radiologist. This report was verified electronically.
[2017-05-20] MEDS ORDERED: levETIRAcetam INJ 500 MG in SODIUM CHLORIDE 0.9% INJ 100 ML IV ONE (04:15)
[2017-05-20] MEDS ORDERED: ACETAMINOPHEN 325 MG TAB PO PRN (04:45)
[2017-05-20] MEDS ORDERED: MAGNESIUM HYDROXIDE SUSP 30 ML CUP PO PRN (04:45)
[2017-05-20] MEDS ORDERED: ONDANSETRON HCL 4 MG/2 ML VIAL IVP PRN (04:45)
[2017-05-20] MEDS ORDERED: SENNOSIDES 8.6 MG TAB PO PRN (04:45)
[2017-05-20] MEDS ORDERED: BISACODYL 10 MG SUPP RECTAL PRN (04:45)
[2017-05-20] MEDS ORDERED: LACTULOSE SYRUP 20 GM/30 ML CUP PO PRN (04:45)
[2017-05-20] MEDS ORDERED: NALOXONE HCL 0.4 MG/ML AMP IV PUSH PRN (04:45)
[2017-05-20] MEDS ORDERED: SODIUM CHLORIDE 0.9% FLUSH 10 ML FLUSH IV FLUSH PRN ×2 (04:45→11:45)
--- NOTE | 2017-05-20 07:54 | EKG ---
Date Performed: 05/20/2017 Time Performed: 02:08:48 PTAGE: 26 years EKG: Sinus rhythm VOLTAGE CRITERIA FOR LVH NONSPECIFIC T-WAVE ABNORMALITY PROLONGED QT INTERVAL ABNORMAL ECG NO PREVIOUS TRACING DOCTOR: Rebel Ng Interpretating Date/Time 05/20/2017 07:51:40
[2017-05-20] MEDS: SODIUM CHLORIDE 0.9% FLUSH 10 ML FLUSH IV FLUSH SCH ×2 (10:59→22:48)
[2017-05-20] MEDS: DOCUSATE SODIUM 50 MG/SENNA 8.6 MG TAB PO SCH ×2 (10:59→22:48)
[2017-05-20] MEDS: RITONAVIR 100 MG TAB PO SCH ×2 (10:59→21:00)
[2017-05-20] MEDS: ABACAVIR SULFATE 300 MG TAB PO SCH ×2 (10:59→22:48)
[2017-05-20] MEDS: FOSAMPRENAVIR CALCIUM PO SCH ×2 (10:59→22:48)
[2017-05-20] MEDS: CALCIUM ACETATE 667 MG CAP PO SCH ×3 (11:00→17:38)
[2017-05-20] MEDS: levETIRAcetam 250 MG TAB PO SCH ×2 (11:00→22:49)
--- NOTE | 2017-05-20 11:36 | PD.CONS ---
[facility] Service Nephrology Consult Requested By Dr. Rivera Reason for Consult ESRD Primary Care Physician Sue Olivas MD History of Present Illness Patient is 26 year old male who presents to the [facility] emergency department with witnessed staring type seizures. He is normally on Keppra for the seizures, however he ran out a couple of days ago. 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 He has recently switched from HD to PD but according to record has missed 3 night. He is currently getting EEG. He is currently non verbal nodding to questions which is not his baseline. (Lou Hoffman) Review of Systems ROS Limitations: Other (Lou Hoffman) Past Family Social History Allergies: Coded Allergies: amoxicillin (Verified Allergy, Severe, rash all over, 05/20/17) clindamycin (Verified Allergy, Severe, Desquamating rash, 05/20/17) penicillin G (Verified Allergy, Severe, Anaphylaxis, 05/20/17) vancomycin (Verified Allergy, Severe, Desqumating rash, 05/20/17) Past Medical History HIV since childhood history of chronic renal failure originally on hemodialysis and recently switched to PD history of low blood pressure, history of seizure disorder. hx of lymphoma Past Surgical History left upper extremity partial amputation bilateral lower extremity below the knee amputations PD catheter Permacath Active Ordered Medications Current Medications Medications (Trade) Dose Ordered Sig/Moose Route Start Time Stop Time Status Last Admin (NS Flush) 2 ml UNSCH PRN IV FLUSH 05/20/17 04:45 (NS Flush) 2 ml BID IV FLUSH 05/20/17 09:00 05/20/17 10:59 (Tylenol) 650 mg Q4H PRN PO 05/20/17 04:45 (Zofran Inj) 4 mg Q6H PRN IVP 05/20/17 04:45 (Narcan Inj) 0.4 mg UNSCH PRN IV PUSH 05/20/17 04:45 (Janeen-Colace) 1 tab BID PO 05/20/17 09:00 05/20/17 10:59 (Milk Of Magnesia Liq) 30 ml Q12H PRN PO 05/20/17 04:45 (Senokot) 17.2 mg Q12H PRN PO 05/20/17 04:45 (Dulcolax Supp) 10 mg DAILY PRN RECTAL 05/20/17 04:45 (Lactulose Liq) 30 ml DAILY PRN PO 05/20/17 04:45 (Ziagen) 300 mg BID PO 05/20/17 09:00 05/20/17 10:59 (Phoslo) 1,334 mg TID PO 05/20/17 09:00 05/20/17 11:00 (Lexiva) 700 mg BID PO 05/20/17 09:00 05/20/17 10:59 (Epivir) 150 mg DAILY PO 05/20/17 09:00 05/20/17 10:59 (Keppra) 750 mg Q12HR PO 05/20/17 09:00 05/20/17 11:00 (Norvir) 100 mg BID PO 05/20/17 09:00 05/20/17 10:59 (Pepcid) 20 mg HS PO 05/20/17 21:00 Social History Alcohol Use: Yes (OCC) Tobacco Use: No Substance Use: Yes (marijuana) (Lou Hoffman) Physical Exam Vital Signs Vital Signs Date Time Temp Pulse Resp B/P (MAP) Pulse Ox O2 Delivery O2 Flow Rate FiO2 05/20/17 08:00 96.4 111 17 95/58 (70) 98 05/20/17 05:40 97.8 92 18 112/65 (81) 97 05/20/17 02:00 92 20 115/74 (88) 97 Room Air 05/20/17 00:09 98.4 92 16 119/72 (88) 97 Physical Exam GENERAL: alert non verbal nodding head to commands SKIN: Warm and dry. Permacath and PD cath HEAD: Normocephalic. EYES: No scleral icterus. No injection or drainage. NECK: Supple, trachea midline. No JVD or lymphadenopathy. CARDIOVASCULAR: Regular rate and rhythm without murmurs, gallops, or rubs. RESPIRATORY: Breath sounds equal bilaterally. No accessory muscle use. GASTROINTESTINAL: Abdomen soft, non-tender, nondistended. MUSCULOSKELETAL: No cyanosis, or edema. Bilateral lower extremity amputation. Left upper arm amputation BACK: Nontender without obvious deformity. No CVA tenderness. Laboratory Laboratory Tests Test 05/20/17 01:30 White Blood Count 12.6 Red Blood Count 4.61 Hemoglobin 12.1 Hematocrit 38.4 Mean Corpuscular Volume 83.3 Mean Corpuscular Hemoglobin 26.4 Mean Corpuscular Hemoglobin Concent 31.6 Red Cell Distribution Width 16.6 Platelet Count 406 Mean Platelet Volume 9.4 Neutrophils (%) (Auto) 50.5 Lymphocytes (%) (Auto) 29.7 Monocytes (%) (Auto) 12.0 Eosinophils (%) (Auto) 7.2 Basophils (%) (Auto) 0.6 Neutrophils # (Auto) 6.4 Lymphocytes # (Auto) 3.8 Monocytes # (Auto) 1.5 Eosinophils # (Auto) 0.9 Basophils # (Auto) 0.1 CBC Comment DIFF FINAL Differential Comment Blood Urea Nitrogen 74 Creatinine 12.05 Random Glucose 59 Total Protein 9.1 Albumin 4.0 Calcium Level 8.8 Alkaline Phosphatase 90 Aspartate Amino Transf (AST/SGOT) 21 Alanine Aminotransferase (ALT/SGPT) 18 Total Bilirubin 0.4 Sodium Level 132 Potassium Level 3.4 Chloride Level 88 Carbon Dioxide Level 19.3 Anion Gap 25 Estimat Glomerular Filtration Rate 6 Ethyl Alcohol Level LESS THAN 3 (Lou Hoffman) Result Diagram: 05/20/17 0130 05/20/17 0130 Imaging Last Impressions Head CT 05/20/17 0000 Signed Impressions: Service Date/Time: Saturday, May 20, 2017 02:38 - CONCLUSION: Negative noncontrast CT Navarro Parisi MD (Lou Hoffman) Assessment and Plan Problem List: (1) ESRD (end stage renal disease) on dialysis ICD Codes: N18.6 - End stage renal disease; Z99.2 - Dependence on renal dialysis Plan: ESRD was HD until about 2 weeks ago and is now PD. Missed past 3 days Hypokalemia at 3.3 Continue phoslo PD Dialysis ordered for today (2) Increasing frequency of seizure activity ICD Codes: R56.9 - Unspecified convulsions Status: Acute (3) Noncompliance with medication regimen ICD Codes: Z91.14 - Patient's other noncompliance with medication regimen Status: Acute (4) Altered mental status ICD Codes: R41.82 - Altered mental status, unspecified Status: Acute (5) HIV (human immunodeficiency virus infection) ICD Codes: Z21 - Asymptomatic human immunodeficiency virus [HIV] infection status Status: Chronic (6) Anemia ICD Codes: D64.9 - Anemia Status: Acute (Lou Hoffman) Problem List: (1) ESRD (end stage renal disease) on dialysis ICD Codes: N18.6 - End stage renal disease; Z99.2 - Dependence on renal dialysis Plan: ESRD was HD until about 2 weeks ago and is now PD. Missed past 3 days Hypokalemia at 3.3 Continue PhosLo PD Dialysis ordered for today. Patient seen and examined, agree with above. D/W the Aunt at bed side. Patient started responding some. PD to start. Follow the electrolytes. (2) Increasing frequency of seizure activity ICD Codes: R56.9 - Unspecified convulsions Status: Acute (3) Noncompliance with medication regimen ICD Codes: Z91.14 - Patient's other noncompliance with medication regimen Status: Acute (4) Altered mental status ICD Codes: R41.82 - Altered mental status, unspecified Status: Acute (5) HIV (human immunodeficiency virus infection) ICD Codes: Z21 - Asymptomatic human immunodeficiency virus [HIV] infection status Status: Chronic (6) Anemia ICD Codes: D64.9 - Anemia Status: Acute (Levi Solis MD) Lou Hoffman May 20, 2017 11:36 Levi Solis MD May 20, 2017 19:23
[2017-05-20] MEDS ORDERED: HEPARIN SODIUM - IV 10,000 UNITS/10 ML VIAL XX PRN (11:45)
[2017-05-20] MEDS ORDERED: POTASSIUM CHLORIDE 10 MEQ CONTROLLED RELEASE TAB PO ONE (15:30)
--- NOTE | 2017-05-20 15:40 | HHI.HP ---
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 He was brought in by his aunt to the emergency department because of altered mental status. History is taken from his aunt and old records. According to his aunt, patient was having staring type seizures yesterday. He was not following commands. He takes Keppra for seizures but ran out 2 days ago. According to his aunt, this is his usual presentation when he has seizure. No fever, headache, dizziness, nausea, vomiting, abdominal pain and diarrhea. He was recently switched to peritoneal dialysis 2 weeks ago and missed 2 sessions. In the emergency department, he received IV Keppra and started on oral formulation. Today, he is awake and oriented to person and place. He does not have any complaints. He intermittently answers questions and follows commands. According to his aunt, he is coming around. Med list shows he is on Levaquin however Aunt is not sure if he is taking this medicine at this time. All other systems reviewed negative Review of Systems Except as stated in HPI: all other systems reviewed are Neg Past Family Social History Past Medical History As previously mentioned Past Surgical History As previously mentioned status post permacath and PD cath placement Reported Medications Reported Meds & Active Scripts Active Levaquin (Levofloxacin) 250 Mg Tablet 250 Mg PO Q48H 10 Days Hydrocodone-Acetamin 5-325 mg (Hydrocodone/Acetaminophen) 5 Mg-325 Mg Tablet 1 Tab PO Q4H PRN Calcium Acetate (Calcium Acetate (Phosphate Bin) 667 Mg Cap 1,334 Mg PO TID Norvir (Ritonavir) 100 Mg Cap 100 Mg PO BID Epivir (Lamivudine) 150 Mg Tab 150 Mg PO DAILY *Fill this 5 day prescription first and begin taking Epivir 12 hours after the first dose received in the Emergency Department as prescribed.* Lexiva (Fosamprenavir Calcium) 700 Mg Tab 1 Tab PO BID Ziagen (Abacavir Sulfate) 300 Mg Tab 300 Mg PO BID Hazardous agent; use appropriate precautions for handling & disposal. Keppra (Levetiracetam) 250 Mg Tab 750 Mg PO Q12HR Famotidine 20 Mg Tab 20 Mg PO HS Allergies: Coded Allergies: amoxicillin (Verified Allergy, Severe, rash all over, 05/20/17) clindamycin (Verified Allergy, Severe, Desquamating rash, 05/20/17) penicillin G (Verified Allergy, Severe, Anaphylaxis, 05/20/17) vancomycin (Verified Allergy, Severe, Desqumating rash, 05/20/17) Family History No diabetes or heart disease Social History Occasional alcohol use. Uses marijuana. Does not smoke Physical Exam Vital Signs Vital Signs Date Time Temp Pulse Resp B/P (MAP) Pulse Ox O2 Delivery O2 Flow Rate FiO2 05/20/17 13:45 97.8 85 17 106/61 (76) 96 05/20/17 12:00 96.7 89 16 107/61 (76) 97 05/20/17 08:00 96.4 111 17 95/58 (70) 98 05/20/17 05:40 97.8 92 18 112/65 (81) 97 05/20/17 02:00 92 20 115/74 (88) 97 Room Air 05/20/17 00:09 98.4 92 16 119/72 (88) 97 Physical Exam GENERAL: This is a well-nourished, petite patient, in no apparent distress. SKIN: No rashes, ecchymoses or lesions. Cool and dry. Permacath in place with dry dirty dressing HEAD: Atraumatic. Normocephalic. No temporal or scalp tenderness. EYES: Pupils equal round and reactive. Extraocular motions intact. No scleral icterus. No injection or drainage. ENT: Nose without bleeding, purulent drainage or septal hematoma. Throat without erythema, tonsillar hypertrophy or exudate. Uvula midline. Airway patent. NECK: Trachea midline. No JVD or lymphadenopathy. Supple, nontender, no meningeal signs. CARDIOVASCULAR: Regular rate and rhythm without murmurs, gallops, or rubs. RESPIRATORY: Clear to auscultation. Breath sounds equal bilaterally. No wheezes , rales, or rhonchi. GASTROINTESTINAL: Abdomen soft, non-tender, nondistended. PDcath in place with dry dirty dressing. No guarding. MUSCULOSKELETAL: Extremities without clubbing, cyanosis, or edema. No joint tenderness, effusion, or edema noted. No calf tenderness. Negative Homans sign bilaterally. Left upper extremity partial amputation and bilateral BKA with intact stumps NEUROLOGICAL: Awake and oriented to person and place. Cranial nerves II through XII intact. Motor and sensory grossly within normal limits. Five out of 5 muscle strength in all muscle groups. Normal speech. Laboratory Laboratory Tests Test 05/20/17 01:30 White Blood Count 12.6 Red Blood Count 4.61 Hemoglobin 12.1 Hematocrit 38.4 Mean Corpuscular Volume 83.3 Mean Corpuscular Hemoglobin 26.4 Mean Corpuscular Hemoglobin Concent 31.6 Red Cell Distribution Width 16.6 Platelet Count 406 Mean Platelet Volume 9.4 Neutrophils (%) (Auto) 50.5 Lymphocytes (%) (Auto) 29.7 Monocytes (%) (Auto) 12.0 Eosinophils (%) (Auto) 7.2 Basophils (%) (Auto) 0.6 Neutrophils # (Auto) 6.4 Lymphocytes # (Auto) 3.8 Monocytes # (Auto) 1.5 Eosinophils # (Auto) 0.9 Basophils # (Auto) 0.1 CBC Comment DIFF FINAL Differential Comment Blood Urea Nitrogen 74 Creatinine 12.05 Random Glucose 59 Total Protein 9.1 Albumin 4.0 Calcium Level 8.8 Alkaline Phosphatase 90 Aspartate Amino Transf (AST/SGOT) 21 Alanine Aminotransferase (ALT/SGPT) 18 Total Bilirubin 0.4 Sodium Level 132 Potassium Level 3.4 Chloride Level 88 Carbon Dioxide Level 19.3 Anion Gap 25 Estimat Glomerular Filtration Rate 6 Magnesium Level 3.0 Ethyl Alcohol Level LESS THAN 3 Result Diagram: 05/20/17 0130 05/20/17 0130 Imaging Last Impressions Head CT 05/20/17 0000 Signed Impressions: Service Date/Time: Saturday, May 20, 2017 02:38 - CONCLUSION: Negative noncontrast CT MD Kamilla Pierre VTE Risk Assessment Kamilla VTE Risk Assessment: No/Low Risk (score <= 1) Caprini Risk Assessment Model Point Value = 1 Point Value = 2 Point Value = 3 Point Value = 5 Age 41-60 Minor surgery BMI > 25 kg/m2 Swollen legs Varicose veins or History of unexplained or recurrent spontaneous Oral contraceptives or hormone replacement Sepsis (< 1 month) Serious lung disease, including pneumonia (< 1 month) Abnormal pulmonary function Acute myocardial infarction Congestive heart failure (< 1 month) History of inflammatory bowel disease Medical patient at bed rest Age 61-74 Arthroscopic surgery Major open surgery (> 45 min) Laparoscopic surgery (> 45 min) Malignancy Confined to bed (> 72 hours) Immobilizing plaster cast Central venous access Age >= 75 History of VTE Family history of VTE Factor V Leiden Prothrombin [id number] Lupus anticoagulant Anticardiolipin antibodies Elevated serum homocysteine Heparin-induced thrombocytopenia Other congenital or acquired thrombophilia Stroke (< 1 month) Elective arthroplasty Hip, pelvis, or leg fracture Acute spinal cord injury (< 1 month) Prophylaxis Regimen Total Risk Factor Score Risk Level Prophylaxis Regimen 0-1 Low Early ambulation 2 Moderate Order ONE of the following: *Sequential Compression Device (SCD) *Heparin 5000 units SQ BID 3-4 Higher Order ONE of the following medications: *Heparin 5000 units SQ TID *Enoxaparin/Lovenox 40 mg SQ daily (WT < 150 kg, CrCl > 30 mL/min) *Enoxaparin/Lovenox 30 mg SQ daily (WT < 150 kg, CrCl > 10-29 mL/min) *Enoxaparin/Lovenox 30 mg SQ BID (WT < 150 kg, CrCl > 30 mL/min) AND/OR *Sequential Compression Device (SCD) 5 or more Highest Order ONE of the following medications: *Heparin 5000 units SQ TID (Preferred with Epidurals) *Enoxaparin/Lovenox 40 mg SQ daily (WT < 150 kg, CrCl > 30 mL/min) *Enoxaparin/Lovenox 30 mg SQ daily (WT < 150 kg, CrCl > 10-29 mL/min) *Enoxaparin/Lovenox 30 mg SQ BID (WT < 150 kg, CrCl > 30 mL/min) AND *Sequential Compression Device (SCD) Assessment and Plan Problem List: (1) Altered mental status ICD Code: R41.82 - Altered mental status, unspecified Status: Acute Assessment and Plan This is a 26-year-old male who presented with altered mental status. According to his Aunt, patient was having staring type seizures . He was not following commands. He takes Keppra for seizures but ran out 2 days ago. According to his aunt, this is his usual presentation when he has seizure. No fever, headache, dizziness, nausea, vomiting, abdominal pain and diarrhea. Encephalopathy likely secondary to seizure from noncompliance with AED with history of HIV. Head CT with no acute findings. He is improving since receiving IV Keppra and restarting p.o. Keppra. Seizure precautions. Neuro checks. Check EEG, urinalysis and UDS. If he does not improve, will obtain MRI of the brain and consider lumbar puncture. Also consult neurology. End-stage renal disease on PD. Renal indices shows acidosis and much more elevated creatinine. His symptoms could also be related to uremia. 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 Continue outpatient medications as appropriate. DVT prophylaxis with daily out of bed. Hold pharmacological prophylaxis may need LP Code Status full Discussed Condition With pt and family Marcial Ríos MD May 20, 2017 15:39
[2017-05-20] MEDS ORDERED: FAMOTIDINE 20 MG TAB PO SCH (21:00)
[2017-05-21 01:12] VITALS: BP 118/84; PULSE 87; RESP 17; TEMP 98.1; O2SAT 96
[2017-05-21 05:30] VITALS: BP 118/84; PULSE 93; RESP 18; TEMP 98.2; O2SAT 94
[2017-05-21 07:29] LABS: AUTOMATED NEUTROPHIL # 8.4 TH/MM3 (1.8-7.7); BASOPHIL # 0.1 TH/MM3 (0-0.2); BASOPHIL % 0.7 % (0.0-2.0); EOSINOPHIL # 0.7 TH/MM3 (0-0.4); EOSINOPHIL % 4.6 % (0.0-4.0); HEMATOCRIT 35.6 % (39.0-51.0); HEMOGLOBIN 11.5 GM/DL (13.0-17.0); LYMPH % 24.3 % (9.0-44.0); LYMPHOCYTE # 3.5 TH/MM3 (1.0-4.8); MEAN CELL VOLUME 81.1 FL (80.0-100.0); MEAN CORPUSCULAR HEMOGLOBIN 26.1 PG (27.0-34.0); MEAN CORPUSCULAR HGB CONC 32.2 % (32.0-36.0); MEAN PLATELET VOLUME 9.2 FL (7.0-11.0); MONO % 12.4 % (0.0-8.0); MONOCYTE # 1.8 TH/MM3 (0-0.9); PLATELET COUNT 386 TH/MM3 (150-450); RED BLOOD COUNT 4.39 MIL/MM3 (4.50-5.90); RED CELL DISTRIBUTION WIDTH 16.4 % (11.6-17.2); WHITE BLOOD COUNT 14.5 TH/MM3 (4.0-11.0)
[2017-05-21 07:50] VITALS: BP 125/82; PULSE 84; RESP 20; TEMP 98.3; O2SAT 98
--- NOTE | 2017-05-21 08:18 | MG ---
cc: LINDY GORDILLO M.D. Lab No: Date: 05/20/2017 Age: 26 Sex: M Race: REQUESTING PHYSICIAN: Dr. Ríos. An EEG was obtained on this 26-year-old patient being evaluated for staring spell type of seizures. MEDICATIONS: Keppra, et cetera. DESCRIPTION OF THE RECORDING: The patient is awake and asleep. There is low amplitude beta activity diffusely. There are some intermixed theta rhythms. There is also some delta activity. There are sleep spindles and K-complexes. Vertex sharp activity is present during sleep. Photic stimulation shows some awakening. At times this study shows some possible sharp discharges, left more than right, like activity seen during photic stimulation. There is also some shifting of the slowing. INTERPRETATION: Abnormal EEG because of bihemispheric slowing compatible with a diffuse disturbance of cerebral function or bilateral structural abnormalities. Some sharp waves / discharges are seen bilaterally, possibly left more than right of equivocal epileptiform significance. No ictal abnormality present. Lindy Gordillo MD [facility] /6:24 PM /8:08 AM
[2017-05-21] MEDS: RITONAVIR 100 MG TAB PO SCH (08:22)
[2017-05-21] MEDS: levETIRAcetam 250 MG TAB PO SCH (08:23)
[2017-05-21] MEDS: CALCIUM ACETATE 667 MG CAP PO SCH ×2 (08:23→12:08)
[2017-05-21] MEDS: FOSAMPRENAVIR CALCIUM PO SCH (08:24)
[2017-05-21] MEDS: ABACAVIR SULFATE 300 MG TAB PO SCH (08:24)
[2017-05-21] MEDS: DOCUSATE SODIUM 50 MG/SENNA 8.6 MG TAB PO SCH (08:24)
[2017-05-21] MEDS: SODIUM CHLORIDE 0.9% FLUSH 10 ML FLUSH IV FLUSH SCH (08:25)
[2017-05-21 10:34] LABS: BICARBONATE 24.1 MEQ/L (21.0-32.0); CALCIUM 9.8 MG/DL (8.5-10.1)
[2017-05-21 10:39] LABS: BACTERIA, URINE FEW /hpf; BILIRUBIN, URINE NEG (NEG); BLOOD, URINE SMALL (NEG); GLUCOSE,URINE NEG (NEG); KETONE, URINE 40 mg/dL (NEG); NITRITE,URINE NEG (NEG); PH, URINE 5.5 (5.0-8.5); SQUAMOUS EPITHELIAL CELL URINE 2 /hpf (0-5); URINE COLOR YELLOW (YELLW/STRAW); URINE LEUKOCYTE ESTERASE NEG (NEG)
[2017-05-21 10:58] LABS: CREATININE 10.35 MG/DL (0.60-1.30)
--- NOTE | 2017-05-21 11:36 | HHI.DCPOC ---
Discharge Care Plan Diagnosis: (1) HIV (human immunodeficiency virus infection) (2) ESRD (end stage renal disease) on dialysis (3) Altered mental status Your Health Problems Are: Difficulty with ADL Exercise Tolerance Goals to Promote Your Health * To prevent worsening of your condition and complications * To maintain your health at the optimal level Directions to Meet Your Goals Take your medications as prescribed Follow your dietary instruction Follow activity as directed Keep your appointments as scheduled Take your immunizations and boosters as scheduled If your symptoms worsen call your PCP, if no PCP go to Urgent Care Center or Emergency Room Smoking is Dangerous to Your Health. Avoid second hand smoke Call the 24-hour hour crisis hotline for domestic abuse at Marcial Ríos MD May 21, 2017 11:36
--- NOTE | 2017-05-21 11:38 | HHI.PR ---
Subjective Remarks Follow-up encephalopathy. Patient is awake and oriented. He has no complaints no headache, dizziness, fever and chills. Also no shortness of breath. Discussed with nursing staff, patient stable for discharge pending CK and clearance from nephrology Objective Vitals Vital Signs Date Time Temp Pulse Resp B/P (MAP) Pulse Ox O2 Delivery O2 Flow Rate FiO2 05/21/17 07:50 98.3 84 20 125/82 (96) 98 05/21/17 05:30 98.2 93 18 118/84 (95) 94 05/21/17 01:12 98.1 87 17 118/84 (95) 96 05/20/17 21:09 97.8 102 18 104/63 (77) 96 05/20/17 15:32 97.6 84 18 110/64 (79) 97 05/20/17 13:45 97.8 85 17 106/61 (76) 96 05/20/17 12:00 96.7 89 16 107/61 (76) 97 I/O 05/20/17 05/20/17 05/20/17 05/21/17 05/21/17 05/21/17 07:00 15:00 23:00 07:00 15:00 23:00 Intake Total 105 ml Output Total 600 ml 0 ml Balance 105 ml -600 ml 0 ml Intake IV Total 105 ml Output Urine Total 600 ml Peritoneal Fluid 0 ml Result Diagram: 05/21/17 0649 05/21/17 0910 Imaging Last Impressions Head CT 05/20/17 0000 Signed Impressions: Service Date/Time: Saturday, May 20, 2017 02:38 - CONCLUSION: Negative noncontrast CT Navarro Parisi MD Objective Remarks GENERAL: This is a well-nourished, petite patient, in no apparent distress. SKIN: No rashes, ecchymoses or lesions. Cool and dry. Permacath in place CARDIOVASCULAR: Regular rate and rhythm without murmurs, gallops, or rubs. RESPIRATORY: Clear to auscultation. Breath sounds equal bilaterally. No wheezes , rales, or rhonchi. GASTROINTESTINAL: Abdomen soft, non-tender, nondistended. PDcath in place . No guarding. MUSCULOSKELETAL: Extremities without clubbing, cyanosis, or edema. No joint tenderness, effusion, or edema noted. No calf tenderness. Negative Homans sign bilaterally. Left upper extremity partial amputation and bilateral BKA with intact stumps NEUROLOGICAL: Awake and oriented to person, time and place. Cranial nerves II through XII intact. Motor and sensory grossly within normal limits. Five out of 5 muscle strength in all muscle groups. Normal speech. Procedures none A/P Problem List: (1) Altered mental status ICD Code: R41.82 - Altered mental status, unspecified Status: Acute Assessment and Plan This is a 26-year-old male who presented with altered mental status. According to his Aunt, patient was having staring type seizures . He was not following commands. He takes Keppra for seizures but ran out. According to his aunt, this is his usual presentation when he has seizure. No fever, headache, dizziness, nausea, vomiting, abdominal pain and diarrhea. Encephalopathy likely secondary to seizure from noncompliance with AED with history of HIV. Head CT with no acute findings. Resolved after receiving IV Keppra and restarting p.o. Keppra. Seizure precautions. Neuro checks. EEG negative for seizure, urinalysis and UDS unremarkable. Counselled delia LEUNG to assist with HHC VN End-stage renal disease on PD. Improving acidosis and renal function since resuming PD. His symptoms could also be related to uremia. 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 Continue outpatient medications as appropriate. DVT prophylaxis with daily out of bed. Hold pharmacological prophylaxis may need LP Discharge Planning Discharge patient to home Condition on discharge: Improved Regular Diet as tolerated Ad Janeen activity Rx written: NOne Follow-up with primary care physician, Neuro, renal and ID Marcial Ríos MD May 21, 2017 11:38
[2017-05-21] MEDS ORDERED: POTASSIUM CHLORIDE 10 MEQ CONTROLLED RELEASE TAB PO ONE (12:00)
[2017-05-21 12:43] VITALS: BP 107/64; PULSE 80; RESP 20; TEMP 98; O2SAT 97
--- NOTE | 2017-05-21 14:59 | HHI.NPPN ---
Subjective History of Present Illness 26 year old male who presents to the [facility] emergency department with witnessed staring type seizures. He is normally on Keppra for the seizures, however he ran out a couple of days ago. 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 Additional Remarks Patient is alert, no SOB, no complain, eating well. Review of Systems General Constitutional: Fatigue Cardiovascular Cardiac: HERMAN Objective Data Data 05/21/17 05/22/17 19:00 07:00 Output Total 0 ml Balance 0 ml Peritoneal Fluid 0 ml # Bowel Movements 1 Vital Signs Date Time Temp Pulse Resp B/P (MAP) Pulse Ox O2 Delivery O2 Flow Rate FiO2 05/21/17 12:43 98.0 80 20 107/64 (78) 97 05/21/17 07:50 98.3 84 20 125/82 (96) 98 05/21/17 05:30 98.2 93 18 118/84 (95) 94 05/21/17 01:12 98.1 87 17 118/84 (95) 96 05/20/17 21:09 97.8 102 18 104/63 (77) 96 05/20/17 15:32 97.6 84 18 110/64 (79) 97 -: 05/21/17 0649 05/21/17 0910 Physical Exam General Appearance: No Acute Distress, Comfortable Eyes Eye Exam: Pupils Equal Throat Throat Exam: Oral Mucosa [place] & Moist Pulmonary Resp Exam: Clear Bilaterally, Breath Sounds Equal, No Distress, Decreased Bases Cardiology CV Exam: Regular, Normal Sinus Rhythm Gastrointestinal/Abdomen GI Exam: Soft, Non-Tender, Bowel Sounds Present, Distended (with PD catheter.) Extremeties Extremeties Remarks Bilateral BKA. Neurologic Neuro Exam: Alert, Awake, Oriented Psychiatric Psych Exam: Appropriate Responses Assessment/Plan Assessment Summary: Anemia of CKD, Hypertension, End Stage Renal Disease Problem List: (1) ESRD (end stage renal disease) on dialysis ICD Codes: N18.6 - End stage renal disease; Z99.2 - Dependence on renal dialysis Plan: Patient with ESRD, was on HD. Recently started on PD. He did not do the PD for 3 days. D/W the patient today and yesterday I discussed with the Aunt, who suppose to help him with PD. Patient has only one arm and need help in starting and disconnecting the PD. I also called PD RN at [facility] to follow and make sure he is compliant. Can be discharged from Nephrology. (2) Increasing frequency of seizure activity ICD Codes: R56.9 - Unspecified convulsions Status: Acute (3) Noncompliance with medication regimen ICD Codes: Z91.14 - Patient's other noncompliance with medication regimen Status: Acute (4) Altered mental status ICD Codes: R41.82 - Altered mental status, unspecified Status: Acute (5) HIV (human immunodeficiency virus infection) ICD Codes: Z21 - Asymptomatic human immunodeficiency virus [HIV] infection status Status: Chronic (6) Anemia ICD Codes: D64.9 - Anemia Status: Acute Levi Solis MD May 21, 2017 14:59
[2017-05-21 15:25] VITALS: BP 124/85; PULSE 84; RESP 20; TEMP 97.5; O2SAT 95
--- NOTE | 2017-05-21 16:36 | HHI.FF ---
Face to Face Verification Diagnosis: (1) ESRD (end stage renal disease) on dialysis Physical Therapy Order: Evaluate and Treat, Improve ambulation, Strength and gait training Home Health Nursing Order: Medical education Signs/symptoms of disease process Medication education-adverse effect Wound care and dressing changes Nursing assessment with vital signs I have seen patient Abhishek Yu on 05/21/17. My clinical findings support the need for the requested home health care services because: Deconditioned w/ increased weakness I certify that my clinical findings support that this patient is homebound because: Unsafe to leave home unassisted Need for psychosocial assistance Marcial Ríos MD May 21, 2017 16:35
== END 2017-05-21 17:36 | disposition home health service (06) | DRG 974 ==
LOC: NEPC 00:06 → NEDA 04:13 → N05B 13:00
PROVIDERS: ADMIT Internal Medicine; ATTEND Internal Medicine
PROC: 3E1M39Z Irrigation of Peritoneal Cavity using Dialysate, Percutaneous Approach (ICD-10-PCS; principal; 2017-05-20)
DX: G93.40 Encephalopathy, unspecified (principal); N18.6 End stage renal disease; B20 Human immunodeficiency virus [HIV] disease; Z94.81 Bone marrow transplant status; C85.90 Non-Hodgkin lymphoma, unspecified, unspecified site; E87.2 Acidosis; I12.0 Hypertensive chronic kidney disease with stage 5 chronic kidney disease or end stage renal disease; G40.909 Epilepsy, unspecified, not intractable, without status epilepticus; F12.90 Cannabis use, unspecified, uncomplicated; Z91.14 Patient's other noncompliance with medication regimen; Z99.2 Dependence on renal dialysis; Z89.512 Acquired absence of left leg below knee; Z89.511 Acquired absence of right leg below knee; Z91.19 Patient's noncompliance with other medical treatment and regimen; Z79.899 Other long term (current) drug therapy; D63.1 Anemia in chronic kidney disease; E87.6 Hypokalemia
CPT/HCPCS: 70450; 80048; 80053; 80307; 81001; 82550; 83735; 84100; 85025; 90935; 93005; 95819; J1953

== ENCOUNTER 2017-06-19 00:09 | Emergency (ER) | payer MEDICARE, OTHER ==
[~2017-06-19] VITALS: Ht 170.2 cm; Wt 45.0 kg
[~2017-06-19 00:09] MED LIST changes: -HYDR-3516 PO; -LEVA250T14 PO; -METR-1 PO
[2017-06-19 00:17] VITALS: BP 116/68; PULSE 93; RESP 16; TEMP 98.1; O2SAT 98
[2017-06-19] MEDS ORDERED: LEVE500 PO (00:57)
[2017-06-19 01:00] VITALS: BP 100/79; PULSE 80; RESP 19; O2SAT 98
[2017-06-19] MEDS ORDERED: ACETAMINOPHEN/HYDROcodone 325 MG/5 MG TAB PO ONE (01:30)
[2017-06-19] MEDS ORDERED: ONDANSETRON ODT 4 MG TAB PO ONE (01:30)
--- NOTE | 2017-06-19 01:35 | PD ---
HPI Chief Complaint: Medical Clearance Time Seen by Provider: 00:53 Travel History International Travel<30 days: No Contact w/Intl Traveler<30days: No Traveled to known affect area: No History of Present Illness HPI 26-year-old male who has diabetes he has had bilateral BKA he has prosthetic legs with him he has had a forearm amputation he is HIV positive and he is coming in because he is having pain at the peritoneal dialysis site. He feels there is not getting as much dialysate out as he does when he puts it in. He is afebrile and initial exam he does not have any tenderness with percussion of his abdomen there is no purulent smell or discharge from the actual opening where the dialysate drain comes out patient is awake alert conversant he is very small statured he looks statured of a 8-year-old as opposed to a 18-year- old [facility] Past Medical History Autoimmune Disease: Yes (HIV) Blood Disorders: Yes (bone marrow transplant) Anxiety: No Depression: No Cancer: Yes (lymphoma age 10-11) Cardiovascular Problems: No Chemotherapy: Yes Cerebrovascular Accident: No Diabetes: No Dialysis: Yes (peritneal) Diminished Hearing: No Endocrine: No Gastrointestinal Disorders: No Genitourinary: Yes (PERITONEAL DIALYSIS) Headaches: Yes Hepatitis: No Hiatal Hernia: No Immune Disorder: Yes (HIV) Implanted Vascular Access Dvce: Yes Kidney Stones: No Musculoskeletal: Yes (bilateral BKA) Neurologic: No Psychiatric: No Reproductive: No Respiratory: No Migraines: No Radiation Therapy: Yes Renal Failure: Yes (esrd) Seizures: Yes Thyroid Disease: No Past Surgical History Abdominal Surgery: Yes (PD catheter and revision) AICD: No Arteriovenous Shunt: No Body Medical Devices: HD permacath, PD cath Cardiac Surgery: No Ear Surgery: No Endocrine Surgery: No Eye Surgery: No Genitourinary Surgery: No Gynecologic Surgery: No Insulin Pump: No Joint Replacement: No Neurologic Surgery: No Oral Surgery: No Pacemaker: No Thoracic Surgery: No Other Surgery: Yes (BILATERAL LOWER LEG AND LEFT ARM AMPUTATION) Social History Alcohol Use: Yes (OCC) Tobacco Use: No Substance Use: Yes (marijuana) Allergies-Medications (Allergen,Severity, Reaction): Coded Allergies: amoxicillin (Verified Allergy, Severe, rash all over, 06/20/17) clindamycin (Verified Allergy, Severe, Desquamating rash, 06/20/17) penicillin G (Verified Allergy, Severe, Anaphylaxis, 06/20/17) vancomycin (Verified Allergy, Severe, Desqumating rash, 06/20/17) Reported Meds & Prescriptions Reported Meds & Active Scripts Active Zofran Odt (Ondansetron Odt) 4 Mg Tab 4 Mg SL Q6HR PRN Calcium Acetate (Calcium Acetate (Phosphate Bin) 667 Mg Cap 1,334 Mg PO TID Norvir (Ritonavir) 100 Mg Cap 100 Mg PO BID Epivir (Lamivudine) 150 Mg Tab 150 Mg PO DAILY *Fill this 5 day prescription first and begin taking Epivir 12 hours after the first dose received in the Emergency Department as prescribed.* Lexiva (Fosamprenavir Calcium) 700 Mg Tab 1 Tab PO BID Ziagen (Abacavir Sulfate) 300 Mg Tab 300 Mg PO BID Hazardous agent; use appropriate precautions for handling & disposal. Famotidine 20 Mg Tab 20 Mg PO HS Reported Keppra (Levetiracetam) 500 Mg Tab 500 Mg PO BID Review of Systems Except as stated in HPI: all other systems reviewed are Neg General / Constitutional: No: Fever, Chills Gastrointestinal: Positive: Nausea, Abdominal Pain Physical Exam Narrative GENERAL: Patient is a 26-year-old awake alert SKIN: Warm and dry. HEAD: Atraumatic. Normocephalic. EYES: Pupils equal and round. + Injected sclera . no drainage. ENT: No nasal bleeding or discharge. Mucous membranes pink and moist. NECK: Trachea midline. No JVD. CARDIOVASCULAR: Regular rate and rhythm. RESPIRATORY: No accessory muscle use. Clear to auscultation. Breath sounds equal bilaterally. GASTROINTESTINAL: Abdomen nontender percussion of all quadrants away from the dialysate port are nontender no rebound no guarding . He has old bandages that are adherent to his abdomen that I gently removed with alcohol and lubricant and then replaced with a 4 x 4 drain gauze covering his drain and opening . No sign of infection no smell of infection from the drain area dialysate in the drain is clear. MUSCULOSKELETAL: Extremities BKA bilaterally and left forearm his mid arm amputation well-healed stumps NEUROLOGICAL: Awake and alert. No obvious cranial nerve deficits. Motor grossly within normal limits. Five out of 5 muscle strength in the arms and legs. Normal speech. PSYCHIATRIC: Appropriate mood and affect; insight and judgment normal. Data Data Last Documented VS Vital Signs Date Time Temp Pulse Resp B/P (MAP) Pulse Ox O2 Delivery O2 Flow Rate FiO2 06/19/17 10:14 86 18 90/65 (73) 96 Orders Orders Ondansetron Odt (Zofran Odt) (06/19/17 01:30) Acetamin-Hydrocod 325-5 Mg ([place] 5-325 (06/19/17 01:30) Complete Blood Count With Diff (06/19/17 04:45) Comprehensive Metabolic Panel (06/19/17 04:45) Lipase (06/19/17 04:45) Fluid Culture And Gram Stain (06/19/17 04:45) Diphenhydramine (Benadryl) (06/19/17 06:00) Calcium Gluconate Inj (Calcium Gluconate (06/19/17 06:30) Ed Discharge Order (06/19/17 06:54) Labs Laboratory Tests Test 06/19/17 05:00 White Blood Count 7.0 TH/MM3 Red Blood Count 4.41 MIL/MM3 Hemoglobin 11.5 GM/DL Hematocrit 36.0 % Mean Corpuscular Volume 81.7 FL Mean Corpuscular Hemoglobin 26.1 PG Mean Corpuscular Hemoglobin Concent 31.9 % Red Cell Distribution Width 16.3 % Platelet Count 301 TH/MM3 Mean Platelet Volume 8.1 FL Neutrophils (%) (Auto) 31.1 % Lymphocytes (%) (Auto) 48.6 % Monocytes (%) (Auto) 9.4 % Eosinophils (%) (Auto) 9.2 % Basophils (%) (Auto) 1.7 % Neutrophils # (Auto) 2.2 TH/MM3 Lymphocytes # (Auto) 3.4 TH/MM3 Monocytes # (Auto) 0.7 TH/MM3 Eosinophils # (Auto) 0.6 TH/MM3 Basophils # (Auto) 0.1 TH/MM3 CBC Comment AUTO DIFF Differential Total Cells Counted 100 Neutrophils % (Manual) 38 % Lymphocytes % 43 % Monocytes % 8 % Eosinophils % 11 % Neutrophils # (Manual) 2.7 TH/MM3 Nucleated Red Blood Cells 7 /100 WBC Differential Comment FINAL DIFF MANUAL Atypical Lymphocytes % Platelet Estimate NORMAL Platelet Morphology Comment NORMAL Target Cells 1+ Ovalocytes 1+ [place] Bodies PRESENT Acanthocytes OCC Keratocytes OCC Blood Urea Nitrogen 42 MG/DL Creatinine 8.32 MG/DL Random Glucose 81 MG/DL Total Protein 6.6 GM/DL Albumin 2.5 GM/DL Calcium Level 6.6 MG/DL Alkaline Phosphatase 120 U/L Aspartate Amino Transf (AST/SGOT) 113 U/L Alanine Aminotransferase (ALT/SGPT) 162 U/L Total Bilirubin 0.2 MG/DL Sodium Level 137 MEQ/L Potassium Level 3.2 MEQ/L Chloride Level 98 MEQ/L Carbon Dioxide Level 25.5 MEQ/L Anion Gap 14 MEQ/L Estimat Glomerular Filtration Rate 9 ML/MIN Protein Corrected Calcium 6.9 MG/DL Lipase 201 U/L [facility] Medical Decision Making Medical Screen Exam Complete: Yes Emergency Medical Condition: Yes Differential Diagnosis SBP vs gastroenteritis vs Gastritis vs diarrhea vs other , pluging of the dialysate tube other Narrative Course I spoke to Dr. Solis I explained the labs and the patient's complaint he feels that if we give a calcium gluconate gram he is safe to be discharged as an outpatient Diagnosis Primary Impression: Hypocalcemia Referrals: Levi Solis MD Patient Instructions: General Instructions, Hypocalcemia (ED) Scripts Ondansetron Odt (Zofran Odt) 4 Mg Tab 4 MG SL Q6HR Y for Nausea/Vomiting, #15 TAB 0 Refills Prov: Gerald Branch MD 06/19/17 Disposition: 01 DISCHARGE HOME Gerald Branch MD Jun 19, 2017 01:35
[2017-06-19 05:11] LABS: AUTOMATED NEUTROPHIL # 2.2 TH/MM3 (1.8-7.7); BASOPHIL # 0.1 TH/MM3 (0-0.2); BASOPHIL % 1.7 % (0.0-2.0); EOSINOPHIL # 0.6 TH/MM3 (0-0.4); EOSINOPHIL % 9.2 % (0.0-4.0); HEMOGLOBIN 11.5 GM/DL (13.0-17.0); LYMPH % 48.6 % (9.0-44.0); LYMPHOCYTE # 3.4 TH/MM3 (1.0-4.8); MEAN CELL VOLUME 81.7 FL (80.0-100.0); MEAN CORPUSCULAR HEMOGLOBIN 26.1 PG (27.0-34.0); MEAN CORPUSCULAR HGB CONC 31.9 % (32.0-36.0); MEAN PLATELET VOLUME 8.1 FL (7.0-11.0); MONO % 9.4 % (0.0-8.0); MONOCYTE # 0.7 TH/MM3 (0-0.9); NEUT % 31.1 % (16.0-70.0); PLATELET COUNT 301 TH/MM3 (150-450); RED BLOOD COUNT 4.41 MIL/MM3 (4.50-5.90); RED CELL DISTRIBUTION WIDTH 16.3 % (11.6-17.2)
[2017-06-19 05:28] LABS: ALBUMIN 2.5 GM/DL (3.4-5.0); BICARBONATE 25.5 MEQ/L (21.0-32.0); CALCIUM 6.6 MG/DL (8.5-10.1); CREATININE 8.32 MG/DL (0.60-1.30); TOTAL BILIRUBIN ADULT 0.2 MG/DL (0.2-1.0); TOTAL PROTEIN 6.6 GM/DL (6.4-8.2)
[2017-06-19 05:34] LABS: CALCIUM-PROTEIN CORRECTED 6.9 MG/DL (8.5-10.1)
[2017-06-19] MEDS ORDERED: diphenhydrAMINE HCL 25 MG CAP PO ONE (06:00)
[2017-06-19 06:03] LABS: CORRECTED NUCLEATED RBC 7 /100 WBC (0-0); MONOCYTES 8 % (0-8); NEUTROPHIL # MANUAL DIFF 2.7 TH/MM3 (1.8-7.7); NUCLEATED RED BLOOD CELL 7 (0-0); POLYS (SEG NEUTROPHILS) 38 % (16-70)
[2017-06-19 06:04] LABS: LYMPHOCYTES 43 % (9-44); TARGET CELLS 1+ (NORMAL)
[2017-06-19 06:05] LABS: ACANTHOCYTES OCC (NORMAL); KERATOCYTES OCC (NORMAL); OVALOCYTES 1+ (NORMAL)
[2017-06-19 06:06] LABS: HOWELL-JOLLY BODIES PRESENT (NONE SEEN)
[2017-06-19] MEDS ORDERED: CALCIUM GLUCONATE INJ 1 GM in SODIUM CHLORIDE 0.9% INJ 100 ML IV ONE (06:30)
[2017-06-19] MEDS ORDERED: ZOFR4TAB3 SL (06:54)
[2017-06-19 08:11] VITALS: BP 91/64; PULSE 81; RESP 19; O2SAT 95
[2017-06-19 10:14] VITALS: BP 90/65
== END 2017-06-19 10:24 | disposition home or self-care (01) ==
LOC: NEPC 00:09
DX: E83.51 Hypocalcemia (principal); N18.6 End stage renal disease; B20 Human immunodeficiency virus [HIV] disease; R56.9 Unspecified convulsions; Z89.512 Acquired absence of left leg below knee; Z89.511 Acquired absence of right leg below knee; Z89.212 Acquired absence of left upper limb below elbow; Z99.2 Dependence on renal dialysis; Z79.899 Other long term (current) drug therapy
CPT/HCPCS: 80053; 83690; 85007; 85027; 87070; 87205; 96374; 99284; J0610

== ENCOUNTER 2017-06-20 01:02 | Emergency (ER) | payer MEDICARE, OTHER ==
[~2017-06-20] VITALS: Ht 172.7 cm; Wt 46.0 kg
[~2017-06-20 01:02] MED LIST changes: -LEVE250 PO; +LEVE500 PO; +ZOFR4TAB3 SL
[2017-06-20 01:23] VITALS: BP 112/76; PULSE 79; RESP 16; TEMP 98.2; O2SAT 98
[2017-06-20 05:10] LABS: CALCIUM 6.2 MG/DL (8.5-10.1); CREATININE 9.63 MG/DL (0.60-1.30)
[2017-06-20 05:25] LABS: CALCIUM-PROTEIN CORRECTED 6.3 MG/DL (8.5-10.1)
[2017-06-20] MEDS ORDERED: POTASSIUM CHLOR 10 MEQ PREMIX 100 ML IV SCH (05:30)
[2017-06-20] MEDS ORDERED: CALCIUM CHLORIDE INJ 2 GM in SODIUM CHLORIDE 0.9% INJ 100 ML IV ONE ×4 (05:30)
[2017-06-20] MEDS ORDERED: POTASSIUM PHOSPHATE MONOBASIC 500 MG TAB PO ONE (06:15)
--- NOTE | 2017-06-20 07:02 | PD ---
HPI . Numbness and tingling Chief Complaint: Numbness/Tingling Time Seen by Provider: 04:14 Travel History International Travel<30 days: No Contact w/Intl Traveler<30days: No Traveled to known affect area: No History of Present Illness HPI This patient presents with a chief complaint of numbness and tingling and the secondary complaint of abdominal pain. This patient is actually not very forthcoming with his history. He acts like he prefers not to be bothered to answer questions. This patient was seen here last night and abdominal pain. He is a peritoneal dialysis patient. He had a thorough workup including Gram stain and cultures of his dialysate. The Gram stain was negative and the cultures are negative thus far. He has not been febrile. He was also found to have hypocalcemia. His inventory control manager was consult and recommended calcium gluconate followed by discharge. His corrected calcium last night was 6.9. PFSH Past Medical History Autoimmune Disease: Yes (HIV) Blood Disorders: Yes (bone marrow transplant) Anxiety: No Depression: No Cancer: Yes (lymphoma age 10-11) Cardiovascular Problems: No Chemotherapy: Yes Cerebrovascular Accident: No Diabetes: No Dialysis: Yes (peritneal) Diminished Hearing: No Endocrine: No Gastrointestinal Disorders: No Genitourinary: Yes (PERITONEAL DIALYSIS) Headaches: Yes Hepatitis: No Hiatal Hernia: No Immune Disorder: Yes (HIV) Implanted Vascular Access Dvce: Yes Kidney Stones: No Musculoskeletal: Yes (bilateral BKA) Neurologic: No Psychiatric: No Reproductive: No Respiratory: No Migraines: No Radiation Therapy: Yes Renal Failure: Yes (esrd) Seizures: Yes Thyroid Disease: No Past Surgical History Abdominal Surgery: Yes (PD catheter and revision) AICD: No Arteriovenous Shunt: No Body Medical Devices: HD permacath, PD cath Cardiac Surgery: No Ear Surgery: No Endocrine Surgery: No Eye Surgery: No Genitourinary Surgery: No Gynecologic Surgery: No Insulin Pump: No Joint Replacement: No Neurologic Surgery: No Oral Surgery: No Pacemaker: No Thoracic Surgery: No Other Surgery: Yes (BILATERAL LOWER LEG AND LEFT ARM AMPUTATION) Social History Alcohol Use: Yes (OCC) Tobacco Use: No Substance Use: Yes (marijuana) Allergies-Medications (Allergen,Severity, Reaction): Coded Allergies: amoxicillin (Verified Allergy, Severe, rash all over, 06/20/17) clindamycin (Verified Allergy, Severe, Desquamating rash, 06/20/17) penicillin G (Verified Allergy, Severe, Anaphylaxis, 06/20/17) vancomycin (Verified Allergy, Severe, Desqumating rash, 06/20/17) Reported Meds & Prescriptions Reported Meds & Active Scripts Active Zofran Odt (Ondansetron Odt) 4 Mg Tab 4 Mg SL Q6HR PRN Calcium Acetate (Calcium Acetate (Phosphate Bin) 667 Mg Cap 1,334 Mg PO TID Norvir (Ritonavir) 100 Mg Cap 100 Mg PO BID Epivir (Lamivudine) 150 Mg Tab 150 Mg PO DAILY *Fill this 5 day prescription first and begin taking Epivir 12 hours after the first dose received in the Emergency Department as prescribed.* Lexiva (Fosamprenavir Calcium) 700 Mg Tab 1 Tab PO BID Ziagen (Abacavir Sulfate) 300 Mg Tab 300 Mg PO BID Hazardous agent; use appropriate precautions for handling & disposal. Famotidine 20 Mg Tab 20 Mg PO HS Reported Keppra (Levetiracetam) 500 Mg Tab 500 Mg PO BID Review of Systems ROS Limitations: Uncooperative Physical Exam Narrative GENERAL: This patient has been sound asleep for the last few hours. I actually did not examine him for the first few hours that he was here because he was sleeping. SKIN: warm/dry. HEAD: Normocephalic. Atraumatic. EYES: Pupils equal and round. No scleral icterus. No injection or drainage. NECK: Full range of motion without pain.. CARDIOVASCULAR: Regular rate and rhythm. RESPIRATORY: No accessory muscle use. Clear to auscultation. Breath sounds equal bilaterally. GASTROINTESTINAL: Abdomen soft. Nontender. Bowel sounds present. Nondistended. Peritoneal dialysis tube is in place. MUSCULOSKELETAL: He is status post amputation of his left forearm and both lower extremities below the knee. All of his fingertips are necrotic. NEUROLOGICAL: Awake and alert. No obvious cranial nerve deficits. Motor grossly within normal limits. Normal speech. PSYCHIATRIC: Appropriate mood and affect. Data Data Last Documented VS Vital Signs Date Time Temp Pulse Resp B/P (MAP) Pulse Ox O2 Delivery O2 Flow Rate FiO2 06/20/17 01:23 98.2 79 16 112/76 (88) 98 Room Air Orders Orders Basic Metabolic Panel (Bmp) (06/20/17 04:17) Magnesium (Mg) (06/20/17 04:18) Protein Corrected Calcium(Pcc) (06/20/17 04:40) Calcium Chloride Inj (Calcium Chloride I (06/20/17 05:30) Calcium Chloride Inj (Calcium Chloride I (06/20/17 05:30) Potassium Chlor 10 Meq Premix (Kcl 10 Me (06/20/17 05:30) Potassium Phosphate (K-Phos) (06/20/17 06:15) Labs Laboratory Tests Test 06/20/17 04:40 Blood Urea Nitrogen 53 MG/DL Creatinine 9.63 MG/DL Random Glucose 71 MG/DL Total Protein 7.0 GM/DL Calcium Level 6.2 MG/DL Sodium Level 136 MEQ/L Potassium Level 3.2 MEQ/L Chloride Level 96 MEQ/L Carbon Dioxide Level 21.0 MEQ/L Anion Gap 19 MEQ/L Estimat Glomerular Filtration Rate 8 ML/MIN Protein Corrected Calcium 6.3 MG/DL Magnesium Level 1.9 MG/DL MDM Medical Decision Making Medical Screen Exam Complete: Yes Emergency Medical Condition: Yes Medical Record Reviewed: Yes (medical history is significant for HIV, HTN, end- stage renal disease on peritoneal dialysis and hypocalcemia.) Differential Diagnosis My differential diagnosis of paresthesias includes but is not limited to anxiety , radiculopathy, peripheral neuropathy, peripheral vascular disease, compartment syndrome Narrative Course This patient presents with a chief complaint of paresthesias. He has the secondary complaint of abdominal pain. He was thoroughly evaluated for the abdominal pain last night including a Gram stain and culture of his dialysate. His abdominal pain workup will not be repeated. BMP Diagram 06/20/17 04:40 Total Protein 7.0, Calcium Level 6.2 *L, Magnesium 1.9 I have ordered 2 g of IV calcium carbonate along with 500 mg of potassium phosphate. We will repeat his labs 1 hour after the infusion complaints. His care is being turned over to the oncoming provider pending repeat labs. Diagnosis Primary Impression: Hypocalcemia Condition: Stable Priyanka Álvarez MD Jun 20, 2017 07:02
[2017-06-20 11:40] LABS: BICARBONATE 21.2 MEQ/L (21.0-32.0); CREATININE 8.89 MG/DL (0.60-1.30); MAGNESIUM 1.7 MG/DL (1.5-2.5)
[2017-06-20 11:45] VITALS: BP 92/56; PULSE 78; RESP 18; O2SAT 95
[2017-06-20 12:03] LABS: TOTAL PROTEIN 6.1 GM/DL (6.4-8.2)
--- NOTE | 2017-06-20 12:50 | PD ---
Physical Exam Date Seen by Provider: Jun 20, 2017 Time Seen by Provider: 07:00 Narrative Patient is signed out to me by Dr. Álvarez, please see previous notes for further details. She is signed out to me awaiting for electrolyte replacement and recheck of BMP, planning to release with follow-up to garment sorter. Return for new issues as needed. Laboratory Tests Test 06/20/17 04:40 06/20/17 10:34 Blood Urea Nitrogen 53 MG/DL (7-18) 54 MG/DL (7-18) Creatinine 9.63 MG/DL (0.60-1.30) 8.89 MG/DL (0.60-1.30) Random Glucose 71 MG/DL (74-106) Calcium Level 6.2 MG/DL (8.5-10.1) 12.2 MG/DL (8.5-10.1) Potassium Level 3.2 MEQ/L (3.5-5.1) 3.2 MEQ/L (3.5-5.1) Chloride Level 96 MEQ/L (98-107) Anion Gap 19 MEQ/L (5-15) Estimat Glomerular Filtration Rate 8 ML/MIN (>89) 9 ML/MIN (>89) Protein Corrected Calcium 6.3 MG/DL (8.5-10.1) Total Protein 6.1 GM/DL (6.4-8.2) Data Data Last Documented VS Vital Signs Date Time Temp Pulse Resp B/P (MAP) Pulse Ox O2 Delivery O2 Flow Rate FiO2 06/20/17 11:45 78 18 92/56 (68) 95 Room Air 06/20/17 01:23 98.2 Orders Orders Basic Metabolic Panel (Bmp) (06/20/17 04:17) Magnesium (Mg) (06/20/17 04:18) Protein Corrected Calcium(Pcc) (06/20/17 04:40) Calcium Chloride Inj (Calcium Chloride I (06/20/17 05:30) Calcium Chloride Inj (Calcium Chloride I (06/20/17 05:30) Potassium Chlor 10 Meq Premix (Kcl 10 Me (06/20/17 05:30) Potassium Phosphate (K-Phos) (06/20/17 06:15) Basic Metabolic Panel (Bmp) (06/20/17 08:33) Magnesium (Mg) (06/20/17 08:33) Protein Corrected Calcium(Pcc) (06/20/17 10:34) Ed Discharge Order (06/20/17 12:46) Labs Laboratory Tests Test 06/20/17 04:40 06/20/17 10:34 Blood Urea Nitrogen 53 MG/DL 54 MG/DL Creatinine 9.63 MG/DL 8.89 MG/DL Random Glucose 71 MG/DL 76 MG/DL Total Protein 7.0 GM/DL 6.1 GM/DL Calcium Level 6.2 MG/DL 12.2 MG/DL Sodium Level 136 MEQ/L 138 MEQ/L Potassium Level 3.2 MEQ/L 3.2 MEQ/L Chloride Level 96 MEQ/L 104 MEQ/L Carbon Dioxide Level 21.0 MEQ/L 21.2 MEQ/L Anion Gap 19 MEQ/L 13 MEQ/L Estimat Glomerular Filtration Rate 8 ML/MIN 9 ML/MIN Protein Corrected Calcium 6.3 MG/DL Magnesium Level 1.9 MG/DL 1.7 MG/DL MDM Medical Record Reviewed: Yes Supervised Visit with BREANNA: No Diagnosis Primary Impression: Hypocalcemia Additional Instruction: Continue dialysis as previously scheduled, follow-up with garment sorter. Return for any worsening in symptoms. Disposition: 01 DISCHARGE HOME Condition: Stable Cristina Gee MD Jun 20, 2017 12:50
[2017-06-20 13:36] LABS: CALCIUM 12.2 MG/DL (8.5-10.1)
== END 2017-06-20 14:02 | disposition home or self-care (01) ==
LOC: NEPC 01:02
DX: E83.51 Hypocalcemia (principal); R10.9 Unspecified abdominal pain; N18.6 End stage renal disease; Z21 Asymptomatic human immunodeficiency virus [HIV] infection status; Z99.2 Dependence on renal dialysis; Z89.511 Acquired absence of right leg below knee; Z89.512 Acquired absence of left leg below knee; Z88.0 Allergy status to penicillin; Z88.1 Allergy status to other antibiotic agents; Z79.899 Other long term (current) drug therapy
CPT/HCPCS: 80048; 83735; 84155; 96365; 96375

== ENCOUNTER 2017-07-08 15:50 | Inpatient (IN) | payer MEDICARE, OTHER ==
[~2017-07-08] VITALS: Ht 167.6 cm; Wt 44.5 kg
[2017-07-08 16:15] VITALS: BP 126/86; PULSE 95; RESP 20; TEMP 97.7; O2SAT 99
--- NOTE | 2017-07-08 16:23 | PD ---
HPI Chief Complaint: Seizure Time Seen by Provider: 15:58 Travel History International Travel<30 days: No Contact w/Intl Traveler<30days: No Traveled to known affect area: No History of Present Illness HPI 26-year-old male was brought in by EMS for seizure. Patient has history of seizure disorder. Patient on Keppra 500 mg twice a day. Patient has been taking Keppra as directed. Patient denies any alcohol or drug abuse. Patient has history of end-stage renal disease on peritoneal dialysis daily. Patient denies any fever chills. Patient denies abdominal pain. Patient complained of anterior chest wall pain and low back pain after a seizure episode. Patient was found on the floor after a seizure episode. Patient denies any headache. Patient denies any neck pain. Patient denies any visual change. 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 Patient also has history lymphoma, HIV positive. PFSH Past Medical History Autoimmune Disease: Yes (HIV) Blood Disorders: Yes (bone marrow transplant) Anxiety: No Depression: No Cancer: Yes (lymphoma age 10-11) Cardiovascular Problems: No Chemotherapy: Yes Cerebrovascular Accident: No Diabetes: No Dialysis: Yes (peritneal) Diminished Hearing: No Endocrine: No Gastrointestinal Disorders: No Genitourinary: Yes (PERITONEAL DIALYSIS) Headaches: Yes Hepatitis: No Hiatal Hernia: No Immune Disorder: Yes (HIV) Implanted Vascular Access Dvce: Yes Kidney Stones: No Musculoskeletal: Yes (bilateral BKA) Neurologic: No Psychiatric: No Reproductive: No Respiratory: No Migraines: No Radiation Therapy: Yes Renal Failure: Yes (esrd) Seizures: Yes Thyroid Disease: No Past Surgical History Abdominal Surgery: Yes (PD catheter and revision) AICD: No Arteriovenous Shunt: No Body Medical Devices: HD permacath, PD cath Cardiac Surgery: No Ear Surgery: No Endocrine Surgery: No Eye Surgery: No Genitourinary Surgery: No Gynecologic Surgery: No Insulin Pump: No Joint Replacement: No Neurologic Surgery: No Oral Surgery: No Pacemaker: No Thoracic Surgery: No Other Surgery: Yes (BILATERAL LOWER LEG AND LEFT ARM AMPUTATION) Social History Alcohol Use: Yes (OCC) Tobacco Use: No Substance Use: Yes (marijuana) Allergies-Medications (Allergen,Severity, Reaction): Coded Allergies: amoxicillin (Verified Allergy, Severe, rash all over, 06/20/17) clindamycin (Verified Allergy, Severe, Desquamating rash, 06/20/17) penicillin G (Verified Allergy, Severe, Anaphylaxis, 06/20/17) vancomycin (Verified Allergy, Severe, Desqumating rash, 06/20/17) Reported Meds & Prescriptions Reported Meds & Active Scripts Active Zofran Odt (Ondansetron Odt) 4 Mg Tab 4 Mg SL Q6HR PRN Calcium Acetate (Calcium Acetate (Phosphate Bin) 667 Mg Cap 1,334 Mg PO TID Norvir (Ritonavir) 100 Mg Cap 100 Mg PO BID Epivir (Lamivudine) 150 Mg Tab 150 Mg PO DAILY *Fill this 5 day prescription first and begin taking Epivir 12 hours after the first dose received in the Emergency Department as prescribed.* Lexiva (Fosamprenavir Calcium) 700 Mg Tab 1 Tab PO BID Ziagen (Abacavir Sulfate) 300 Mg Tab 300 Mg PO BID Hazardous agent; use appropriate precautions for handling & disposal. Famotidine 20 Mg Tab 20 Mg PO HS Reported Keppra (Levetiracetam) 500 Mg Tab 500 Mg PO BID Review of Systems General / Constitutional: No: Fever Eyes: No: Visual changes HENT: No: Headaches Cardiovascular: No: Chest Pain or Discomfort Respiratory: No: Shortness of Breath Gastrointestinal: No: Abdominal Pain Genitourinary: No: Dysuria Musculoskeletal: No: Pain Skin: No Rash Neurologic: Positive: Seizures, No: Weakness Psychiatric: No: Depression Endocrine: No: Polydipsia Hematologic/Lymphatic: No: Easy Bruising Physical Exam Narrative GENERAL: Well-nourished, well-developed patient. SKIN: Focused skin assessment warm/dry. HEAD: Normocephalic. EYES: No scleral icterus. No injection or drainage. Pupil 2 mm equal reactive. NECK: Supple, trachea midline. No JVD or lymphadenopathy. CARDIOVASCULAR: Regular rate and rhythm without murmurs, gallops, or rubs. RESPIRATORY: Breath sounds equal bilaterally. No accessory muscle use. GASTROINTESTINAL: Abdomen soft, non-tender, nondistended. MUSCULOSKELETAL: No cyanosis, or edema. Mild tenderness on palpation in the chest wall area. No crepitus no deformity noted. Breath sounds equal bilaterally. Mild tenderness on palpation lower lumbar area. BACK: Nontender without obvious deformity. No CVA tenderness. Neurologic exam normal. Data Data Last Documented VS Vital Signs Date Time Temp Pulse Resp B/P (MAP) Pulse Ox O2 Delivery O2 Flow Rate FiO2 07/08/17 16:15 97.7 95 20 126/86 (99) 99 07/08/17 16:15 Room Air Orders Orders Complete Blood Count With Diff (07/08/17 15:59) Basic Metabolic Panel (Bmp) (07/08/17 15:59) Magnesium (Mg) (07/08/17 15:59) Thyroid Stimulating Hormone (07/08/17 15:59) Phosphorus (Po4) (07/08/17 15:59) Chest, Single Ap (07/08/17 15:59) Pelvis, Ap Only (Routine) (07/08/17 15:59) Iv Access Insert/Monitor (07/08/17 15:59) Ecg Monitoring (07/08/17 15:59) Oximetry (07/08/17 15:59) Labs Laboratory Tests Test 07/08/17 16:40 07/08/17 18:10 White Blood Count 10.5 TH/MM3 Red Blood Count 4.56 MIL/MM3 Hemoglobin 11.7 GM/DL Hematocrit 36.7 % Mean Corpuscular Volume 80.5 FL Mean Corpuscular Hemoglobin 25.7 PG Mean Corpuscular Hemoglobin Concent 31.9 % Red Cell Distribution Width 15.0 % Platelet Count 407 TH/MM3 Mean Platelet Volume 8.9 FL Neutrophils (%) (Auto) 67.9 % Lymphocytes (%) (Auto) 21.2 % Monocytes (%) (Auto) 8.1 % Eosinophils (%) (Auto) 1.3 % Basophils (%) (Auto) 1.5 % Neutrophils # (Auto) 7.1 TH/MM3 Lymphocytes # (Auto) 2.2 TH/MM3 Monocytes # (Auto) 0.9 TH/MM3 Eosinophils # (Auto) 0.1 TH/MM3 Basophils # (Auto) 0.2 TH/MM3 CBC Comment AUTO DIFF Thyroid Stimulating Hormone 3rd Gen 1.300 uIU/ML MDM Medical Decision Making Medical Screen Exam Complete: Yes Emergency Medical Condition: Yes Differential Diagnosis Differential diagnosis including breakthrough seizure, electrolyte abnormality, hypotherapeutic level of medication, infection. Narrative Course 26-year-old male with breakthrough seizure. History of seizure. Patient is on Keppra. Diagnosis Primary Impression: Breakthrough seizure Patient Instructions: General Instructions Additional Instructions: Continue with all medication. Follow-up with neurologist. Return as needed. Med/Other Pt SpecificInfo: No Change to Meds Disposition: 01 DISCHARGE HOME Condition: Stable Carlos Robertson MD Jul 08, 2017 16:23
--- NOTE | 2017-07-08 16:48 | RADRPT ---
EXAM DATE/TIME: 07/08/2017 16:12 [facility] COMPARISON: CHEST SINGLE AP, April 06, 2017, 7:45. INDICATIONS : Seizures MEDICAL HISTORY : Renal failure, chronic. HIV, Dialysis SURGICAL HISTORY : peg tube ENCOUNTER: Initial ACUITY: 1 day PAIN SCORE: 7/10 LOCATION: Bilateral chest FINDINGS: A single view of the chest demonstrates the lungs to be symmetrically aerated without evidence of mas s, infiltrate or effusion. The cardiomediastinal contours are unremarkable. Osseous structures are intact. CONCLUSION: No acute disease. Anatoliy García MD FACR on July 08, 2017 at 16:45 Board Certified Radiologist. This report was verified electronically.
--- NOTE | 2017-07-08 16:50 | RADRPT ---
EXAM DATE/TIME: 07/08/2017 16:15 [place] COMPARISON: No previous studies available for comparison. INDICATIONS : Seizures. MEDICAL HISTORY : Renal failure, chronic. HIV, dialysis SURGICAL HISTORY : peg tube ENCOUNTER: Initial ACUITY: 1 day PAIN SCORE: 7/10 LOCATION: Bilateral pelvis FINDINGS: A single frontal view of the pelvis demonstrates no evidence of fracture. The bony pelvic ring is in tact. Bony mineralization is normal. The soft tissues are intact. Peritoneal dialysis catheter is n oted within the right lower quadrant. CONCLUSION: No acute disease. Ezio Caro MD on July 08, 2017 at 16:46 Board Certified Radiologist. This report was verified electronically.
[2017-07-08 17:09] LABS: AUTOMATED NEUTROPHIL # 7.1 TH/MM3 (1.8-7.7); BASOPHIL # 0.2 TH/MM3 (0-0.2); BASOPHIL % 1.5 % (0.0-2.0); EOSINOPHIL # 0.1 TH/MM3 (0-0.4); EOSINOPHIL % 1.3 % (0.0-4.0); HEMATOCRIT 36.7 % (39.0-51.0); HEMOGLOBIN 11.7 GM/DL (13.0-17.0); LYMPH % 21.2 % (9.0-44.0); LYMPHOCYTE # 2.2 TH/MM3 (1.0-4.8); MEAN CELL VOLUME 80.5 FL (80.0-100.0); MEAN CORPUSCULAR HEMOGLOBIN 25.7 PG (27.0-34.0); MEAN CORPUSCULAR HGB CONC 31.9 % (32.0-36.0); MEAN PLATELET VOLUME 8.9 FL (7.0-11.0); MONO % 8.1 % (0.0-8.0); MONOCYTE # 0.9 TH/MM3 (0-0.9); NEUT % 67.9 % (16.0-70.0); PLATELET COUNT 407 TH/MM3 (150-450); RED BLOOD COUNT 4.56 MIL/MM3 (4.50-5.90); WHITE BLOOD COUNT 10.5 TH/MM3 (4.0-11.0)
[2017-07-08 19:01] LABS: BASOPHILS 2 % (0-2); CORRECTED NUCLEATED RBC 2 /100 WBC (0-0); LYMPHOCYTES 24 % (9-44); MONOCYTES 7 % (0-8); MYELOCYTES 1 % (0-0); NUCLEATED RED BLOOD CELL 2 (0-0); POLYS (SEG NEUTROPHILS) 66 % (16-70)
[2017-07-08 19:02] LABS: OVALOCYTES 1+ (NORMAL)
[2017-07-08 19:59] VITALS: BP 107/75; PULSE 85; RESP 16; O2SAT 98
[2017-07-08 20:17] LABS: BICARBONATE 18.9 MEQ/L (21.0-32.0); CALCIUM 6.5 MG/DL (8.5-10.1); CREATININE 6.97 MG/DL (0.60-1.30)
[2017-07-08 20:26] LABS: PHOSPHORUS 8.5 MG/DL (2.5-4.9)
[2017-07-08] MEDS ORDERED: INSULIN HUMAN REGULAR 1,000 UNITS/10 ML VIAL IV PUSH ONE (20:45)
[2017-07-08] MEDS ORDERED: SODIUM POLYSTYRENE SULFONATE SUSP 15 GM/60 ML CUP PO ONE (20:45)
[2017-07-08] MEDS ORDERED: DEXTROSE 50% IN WATER 50 ML VIAL(D50) IV PUSH ONE (20:45)
[2017-07-08 20:53] LABS: TOTAL PROTEIN 8.4 GM/DL (6.4-8.2)
--- NOTE | 2017-07-08 20:55 | PD ---
Data Data Last Documented VS Vital Signs Date Time Temp Pulse Resp B/P (MAP) Pulse Ox O2 Delivery O2 Flow Rate FiO2 07/08/17 19:59 85 16 107/75 (86) 98 Room Air 07/08/17 16:15 97.7 Orders Orders Complete Blood Count With Diff (07/08/17 15:59) Basic Metabolic Panel (Bmp) (07/08/17 15:59) Magnesium (Mg) (07/08/17 15:59) Thyroid Stimulating Hormone (07/08/17 15:59) Phosphorus (Po4) (07/08/17 15:59) Chest, Single Ap (07/08/17 15:59) Pelvis, Ap Only (Routine) (07/08/17 15:59) Iv Access Insert/Monitor (07/08/17 15:59) Ecg Monitoring (07/08/17 15:59) Oximetry (07/08/17 15:59) Protein Corrected Calcium(Pcc) (07/08/17 18:10) Dextrose 50% In Keo (Vial) Inj (D50w (Vi (07/08/17 20:45) Insulin Human Regular Inj (Novolin R Inj (07/08/17 20:45) Sodium Polysty Sulfate Liq (Kayexalate L (07/08/17 20:45) Magnesium (Mg) (07/08/17 20:42) Phosphorus (Po4) (07/08/17 20:42) Calcium Gluconate Inj (Calcium Gluconate (07/08/17 21:00) Electrocardiogram (07/08/17 ) Prothrombin Time / Inr (Pt) (07/08/17 21:02) Act Partial Throm Time (Ptt) (07/08/17 21:02) Sodium Chloride 0.9% Flush (Ns Flush) (07/08/17 21:15) Labs Laboratory Tests Test 07/08/17 16:40 07/08/17 18:10 White Blood Count 10.5 TH/MM3 Red Blood Count 4.56 MIL/MM3 Hemoglobin 11.7 GM/DL Hematocrit 36.7 % Mean Corpuscular Volume 80.5 FL Mean Corpuscular Hemoglobin 25.7 PG Mean Corpuscular Hemoglobin Concent 31.9 % Red Cell Distribution Width 15.0 % Platelet Count 407 TH/MM3 Mean Platelet Volume 8.9 FL Neutrophils (%) (Auto) 67.9 % Lymphocytes (%) (Auto) 21.2 % Monocytes (%) (Auto) 8.1 % Eosinophils (%) (Auto) 1.3 % Basophils (%) (Auto) 1.5 % Neutrophils # (Auto) 7.1 TH/MM3 Lymphocytes # (Auto) 2.2 TH/MM3 Monocytes # (Auto) 0.9 TH/MM3 Eosinophils # (Auto) 0.1 TH/MM3 Basophils # (Auto) 0.2 TH/MM3 CBC Comment AUTO DIFF Differential Total Cells Counted 100 Neutrophils % (Manual) 66 % Lymphocytes % 24 % Monocytes % 7 % Basophils % 2 % Neutrophils # (Manual) 7.0 TH/MM3 Myelocytes 1 % Nucleated Red Blood Cells 2 /100 WBC Differential Comment FINAL DIFF MANUAL Platelet Estimate NORMAL Platelet Morphology Comment NORMAL Ovalocytes 1+ Blood Urea Nitrogen 60 MG/DL Creatinine 6.97 MG/DL Random Glucose 62 MG/DL Total Protein 8.4 GM/DL Calcium Level 6.5 MG/DL Phosphorus Level 8.5 MG/DL Magnesium Level 2.0 MG/DL Sodium Level 136 MEQ/L Potassium Level 7.6 MEQ/L Chloride Level 103 MEQ/L Carbon Dioxide Level 18.9 MEQ/L Anion Gap 14 MEQ/L Estimat Glomerular Filtration Rate 11 ML/MIN Protein Corrected Calcium 6.0 MG/DL Thyroid Stimulating Hormone 3rd Gen 1.300 uIU/ML MDM Supervised Visit with BREANNA: No Narrative Course The patient was initially evaluated by the previous provider and signed out to me at the beginning of my shift pending labs and disposition. See his note for further details. Briefly this is a 26-year-old male with history of seizure disorder on Keppra, ESRD with home peritoneal dialysis, left forearm amputation, bilateral BKA's, here for evaluation of seizure. Patient reports compliance with Keppra. On my exam he states he feels well. He also reports compliance with peritoneal dialysis. Labs reviewed and are remarkable for potassium 7.6, bicarb 18.9, BUN 60, creatinine 6.97, GFR 11, calcium 6.5. Patient denies having had fevers. He does have slight pain around his peritoneal dialysis catheter. States his last diasylate fluid was clear. There are no peritoneal signs on his abdominal exam. He was written for D50, insulin, calcium, and Kayexalate to treat his hyperkalemia and hypocalcemia. Case discussed with the patient's melting operator Dr. Solis who asked that I admit the patient to the ICU to the chemical processing technician service and asked if the chemical processing technician could place a Vas-Cath for 1 round of dialysis tonight. Case discussed with chemical processing technician Dr. Evangelista who will admit the patient to his service. Diagnosis Primary Impression: Hyperkalemia Additional Impressions: Hypocalcemia End stage renal disease Breakthrough seizure Admitting Information Admitting Physician Requests: Admit Patient Instructions: General Instructions Additional Instruction: Continue with all medication. Follow-up with neurologist. Return as needed. Disposition: 01 DISCHARGE HOME Condition: Stable Jayce Chew MD Jul 08, 2017 20:55
[2017-07-08] MEDS ORDERED: CALCIUM GLUCONATE INJ 1 GM in DEXTROSE 5% IN WATER 100ML INJ 100 ML IV ONE ×2 (21:00)
[2017-07-08] MEDS ORDERED: SODIUM CHLORIDE 0.9% FLUSH 10 ML FLUSH IV FLUSH PRN ×3 (21:15→21:45)
[2017-07-08] MEDS ORDERED: SODIUM BICARBONATE 8.4% INJ 150 MEQ in DEXTROSE 5% IN WATE 1000ML INJ 1,000 ML IV SCH ×2 (21:30)
[2017-07-08] MEDS ORDERED: SODIUM CHLOR 0.9% 1000 ML INJ 1,000 ML IV PRN (21:42)
[2017-07-08] MEDS ORDERED: SODIUM CHLOR 0.9% 1000 ML INJ 1,000 ML OTHER PRN ×2 (21:42)
--- NOTE | 2017-07-08 21:44 | HHI.HP ---
HPI Service Critical Care Medicine Primary Care Physician No Primary Care Physician Admission Diagnosis Hyperkalemia, hypocalcemia, ESRD, breakthrough seizure Diagnosis: Travel History International Travel<30 Days: No Contact w/Intl Traveler <30 Da: No Traveled to Known Affected Are: No History of Present Illness 26-year-old male with history of seizure disorder on Keppra, ESRD with home peritoneal dialysis, left forearm amputation, bilateral BKA's, presents for evaluation of seizure. Patient reports compliance with Keppra as well as his peritoneal dialysis. Labs reviewed and are remarkable for potassium 7.6, bicarb 18.9, BUN 60, creatinine 6.97, GFR 11, calcium 6.5. Patient denies having had fevers. He does have slight pain around his peritoneal dialysis catheter. States his last diasylate fluid was clear. There are no peritoneal signs on his abdominal exam. He was written for D50, insulin, calcium, and Kayexalate to treat his hyperkalemia and hypocalcemia. The lab results were discussed with patient's dcs engineer who suggested emergent hemodialysis. Review of Systems Constitutional: DENIES: Diaphoretic episodes, Fatigue, Fever, Weight gain, Weight loss, Chills, Dizziness, Change in appetite, Night Sweats Endocrine: DENIES: Heat/cold intolerance, Polydipsia, Polyuria, Polyphagia Eyes: DENIES: Blurred vision, Diplopia, Eye inflammation, Eye pain, Vision loss , Photosensitivity, Double Vision Ears, nose, mouth, throat: DENIES: Tinnitus, Hearing loss, Vertigo, Nasal discharge, Oral lesions, Throat pain, Hoarseness, Ear Pain, Running Nose, Epistaxis, Sinus Pain, Toothache, Odynophagia Respiratory: DENIES: Apneas, Cough, Snoring, Wheezing, Hemoptysis, Sputum production, Shortness of breath Cardiovascular: DENIES: Chest pain, Palpitations, Syncope, Dyspnea on Exertion , PND, Lower Extremity Edema, Orthopnea, Claudication Gastrointestinal: DENIES: Abdominal pain, Black stools, Bloody stools, Constipation, Diarrhea, Nausea, Vomiting, Difficulty Swallowing, Anorexia Genitourinary: DENIES: Sexual dysfunction, Urinary frequency, Urinary incontinence, Urgency, Hematuria, Dysuria, Nocturia, Penile Discharge, Testicular Pain, Testicular Swelling Musculoskeletal: DENIES: Joint pain, Muscle aches, Stiffness, Joint Swelling, Back pain, Neck pain Integumentary: DENIES: Abnormal pigmentation, Nail changes, Pruritus, Rash Hematologic/lymphatic: DENIES: Bruising, Lymphadenopathy Immunologic/allergic: DENIES: Eczema, Urticaria Neurologic: DENIES: Abnormal gait, Headache, Localized weakness, Paresthesias, Seizures, Speech Problems, Tremor, Poor Balance Psychiatric: DENIES: Anxiety, Confusion, Mood changes, Depression, Hallucinations, Agitation, Suicidal Ideation, Homicidal Ideation, Delusions Past Family Social History Allergies: Coded Allergies: amoxicillin (Verified Allergy, Severe, rash all over, 07/08/17) clindamycin (Verified Allergy, Severe, Desquamating rash, 07/08/17) penicillin G (Verified Allergy, Severe, Anaphylaxis, 07/08/17) vancomycin (Verified Allergy, Severe, Desqumating rash, 07/08/17) Past Medical History End-stage renal disease - on HD TFSu, with plan to start peritoneal dialysis. PD catheter placed approximately 3 weeks ago. History of lymphoma Bilateral amputations of the lower extremities Left upper extremity amputation HIV, last CD4 cell count 275 on 02/03/17 Seizure disorder Past Surgical History Bilateral lower and left upper extremity amputations at age 12 Splenectomy Reported Medications Reported Meds & Active Scripts Active Zofran Odt (Ondansetron Odt) 4 Mg Tab 4 Mg SL Q6HR PRN Calcium Acetate (Calcium Acetate (Phosphate Bin) 667 Mg Cap 1,334 Mg PO TID Norvir (Ritonavir) 100 Mg Cap 100 Mg PO BID Epivir (Lamivudine) 150 Mg Tab 150 Mg PO DAILY *Fill this 5 day prescription first and begin taking Epivir 12 hours after the first dose received in the Emergency Department as prescribed.* Lexiva (Fosamprenavir Calcium) 700 Mg Tab 1 Tab PO BID Ziagen (Abacavir Sulfate) 300 Mg Tab 300 Mg PO BID Hazardous agent; use appropriate precautions for handling & disposal. Famotidine 20 Mg Tab 20 Mg PO HS Reported Keppra (Levetiracetam) 500 Mg Tab 500 Mg PO BID Active Ordered Medications Current Medications Medications (Trade) Dose Ordered Sig/Moose Route PRN Reason Start Time Stop Time Status Last Admin Dose Admin Calcium Gluconate 1 gm/Dextrose 110 ml @ 110 mls/hr ONCE ONCE IV 07/08/17 21:00 07/08/17 21:59 07/08/17 21:00 Sodium Chloride (NS Flush) 2 ml UNSCH PRN IV FLUSH FLUSH AFTER USING IV ACCESS 07/08/17 21:15 Sodium Bicarbonate 150 meq/Dextrose 1,150 ml @ 75 mls/hr [id number] IV 07/08/17 21:30 UNV Abacavir Sulfate (Ziagen) 300 mg BID PO 07/09/17 09:00 UNV Calcium Acetate (Phoslo) 1,334 mg TID PO 07/09/17 09:00 UNV Fosamprenavir Calcium (Lexiva) 700 mg BID PO 07/09/17 09:00 UNV Lamivudine (Epivir) 150 mg DAILY PO 07/09/17 09:00 UNV Levetriacetam (Keppra) 500 mg BID PO 07/09/17 09:00 UNV Ritonavir (Norvir) 100 mg BID PO 07/09/17 09:00 UNV Sodium Chloride (NS Flush) 2 ml UNSCH PRN IV FLUSH FLUSH AFTER USING IV ACCESS 07/08/17 21:45 UNV Sodium Chloride (NS Flush) 2 ml BID IV FLUSH 07/09/17 09:00 UNV Acetaminophen (Tylenol) 650 mg Q6H PRN PO PAIN 1-10 AND/OR FEVER >101F 07/08/17 21:45 UNV Famotidine (Pepcid Inj) 20 mg Q12HR IV PUSH 07/09/17 09:00 UNV Ondansetron HCl (Zofran Inj) 4 mg Q6H PRN IV PUSH NAUSEA OR VOMITING 07/08/17 21:45 UNV Temazepam (Restoril) 15 mg HS PRN PO INSOMNIA 07/08/17 21:45 UNV Albuterol/ Ipratropium (Duoneb Neb) 1 ampule Q2HR NEB PRN INH WHEEZING 07/08/17 21:45 UNV Heparin Sodium (Porcine) (Heparin Inj) 5,000 units Q8H SQ 07/08/17 21:45 UNV Miscellaneous Information 1 [id number] XX 07/08/17 21:45 UNV Chlorhexidine Gluconate (Chlorhexidine 2% Cloth) 3 pack Taper DAILY@04 TOP 07/09/17 04:00 07/05/18 03:59 UNV Chlorhexidine Gluconate (Chlorhexidine 2% Cloth) 3 pack UNSCH PRN TOP HYGIENIC CARE 07/08/17 21:45 UNV Senna/Docusate Sodium (Janeen-Colace) 1 tab BID PO 07/09/17 09:00 UNV Magnesium Hydroxide (Milk Of Magnesia Liq) 30 ml Q12H PRN PO Mild constipation 07/08/17 21:45 UNV Sennosides (Senokot) 17.2 mg Q12H PRN PO Moderate constipation 07/08/17 21:45 UNV Bisacodyl (Dulcolax Supp) 10 mg DAILY PRN RECTAL SEVERE CONSITIPATION 07/08/17 21:45 UNV Lactulose (Lactulose Liq) 30 ml DAILY PRN PO SEVERE CONSITIPATION 07/08/17 21:45 UNV Sodium Chloride 1,000 ml @ 0 mls/hr Q0M PRN OTHER For Prime & Rinse Back 07/08/17 21:42 UNV Heparin Sodium (Porcine) (Heparin Inj) 8,000 units UNSCH PRN IV FLUSH WITH DIALYSIS 07/08/17 21:45 UNV Sodium Chloride 1,000 ml @ 200 mls/hr Q5H PRN IV WITH DIALYSIS 07/08/17 21:42 UNV Sodium Chloride 1,000 ml @ 0 mls/hr Q0M PRN OTHER WITH DIALYSIS 07/08/17 21:42 UNV Mannitol (Mannitol Inj) 12.5 gm UNSCH PRN IV WITH DIALYSIS 07/08/17 21:45 UNV Albumin Human 100 ml @ 60 mls/hr UNSCH PRN IV WITH DIALYSIS 07/08/17 21:45 UNV Sodium Chloride (NS Flush) 5 ml UNSCH PRN IV FLUSH WITH DIALYSIS 07/08/17 21:45 UNV Heparin Sodium (Porcine) (Heparin Inj) UNSCH PRN .XX WITH DIALYSIS 07/08/17 21:45 UNV Gentamicin Sulfate (Gentamicin Inj) 20 mg UNSCH PRN OTHER WITH DIALYSIS 07/08/17 21:45 UNV Ondansetron HCl (Zofran Inj) 4 mg UNSCH PRN IV PUSH WITH DIALYSIS 07/08/17 21:45 UNV Acetaminophen (Tylenol) 650 mg UNSCH PRN PO for headach, pain, temp > 101F 07/08/17 21:45 UNV Diphenhydramine HCl (Benadryl) 25 mg UNSCH PRN PO for hives/itching/anaphylaxis 07/08/17 21:45 UNV Nitroglycerin (Nitrostat Sl) 0.4 mg UNSCH PRN SL CHEST PAIN 07/08/17 21:45 UNV Clonidine (Catapres) 0.1 mg UNSCH PRN PO for BP > 180/100 X 2 readings 07/08/17 21:45 UNV Gelatin (Gelfoam 12 Mm/7 Mm Top) 1 foam UNSCH PRN TOP SEE LABEL COMMENTS 07/08/17 21:45 UNV Family History Denies family history of heart disease or diabetes mellitus. Social History Denies tobacco, alcohol and illicit drugs. Physical Exam Vital Signs Vital Signs Date Time Temp Pulse Resp B/P (MAP) Pulse Ox O2 Delivery O2 Flow Rate FiO2 07/08/17 19:59 85 16 107/75 (86) 98 Room Air 07/08/17 16:15 97.7 95 20 126/86 (99) 99 07/08/17 16:15 100 Room Air Physical Exam GENERAL: This is a well-nourished, petite patient, in no apparent distress. SKIN: No rashes, ecchymoses or lesions. Cool and dry. Permacath in place with dry dirty dressing HEAD: Atraumatic. Normocephalic. No temporal or scalp tenderness. EYES: Pupils equal round and reactive. Extraocular motions intact. No scleral icterus. No injection or drainage. ENT: Nose without bleeding, purulent drainage or septal hematoma. Throat without erythema, tonsillar hypertrophy or exudate. Uvula midline. Airway patent. NECK: Trachea midline. No JVD or lymphadenopathy. Supple, nontender, no meningeal signs. CARDIOVASCULAR: Regular rate and rhythm without murmurs, gallops, or rubs. RESPIRATORY: Clear to auscultation. Breath sounds equal bilaterally. No wheezes , rales, or rhonchi. GASTROINTESTINAL: Abdomen soft, non-tender, nondistended. PDcath in place with dry dirty dressing. No guarding. MUSCULOSKELETAL: Left upper extremity partial amputation and bilateral BKA with intact stumps NEUROLOGICAL: Awake and oriented to person and place. Cranial nerves II through XII intact. Motor and sensory grossly within normal limits. Five out of 5 muscle strength in all muscle groups. Normal speech. Laboratory Laboratory Tests Test 07/08/17 16:40 07/08/17 18:10 White Blood Count 10.5 Red Blood Count 4.56 Hemoglobin 11.7 Hematocrit 36.7 Mean Corpuscular Volume 80.5 Mean Corpuscular Hemoglobin 25.7 Mean Corpuscular Hemoglobin Concent 31.9 Red Cell Distribution Width 15.0 Platelet Count 407 Mean Platelet Volume 8.9 Neutrophils (%) (Auto) 67.9 Lymphocytes (%) (Auto) 21.2 Monocytes (%) (Auto) 8.1 Eosinophils (%) (Auto) 1.3 Basophils (%) (Auto) 1.5 Neutrophils # (Auto) 7.1 Lymphocytes # (Auto) 2.2 Monocytes # (Auto) 0.9 Eosinophils # (Auto) 0.1 Basophils # (Auto) 0.2 CBC Comment AUTO DIFF Differential Total Cells Counted 100 Neutrophils % (Manual) 66 Lymphocytes % 24 Monocytes % 7 Basophils % 2 Neutrophils # (Manual) 7.0 Myelocytes 1 Nucleated Red Blood Cells 2 Differential Comment FINAL DIFF MANUAL Platelet Estimate NORMAL Platelet Morphology Comment NORMAL Ovalocytes 1+ Blood Urea Nitrogen 60 Creatinine 6.97 Random Glucose 62 Total Protein 8.4 Calcium Level 6.5 Phosphorus Level 8.5 Magnesium Level 2.0 Sodium Level 136 Potassium Level 7.6 Chloride Level 103 Carbon Dioxide Level 18.9 Anion Gap 14 Estimat Glomerular Filtration Rate 11 Protein Corrected Calcium 6.0 Thyroid Stimulating Hormone 3rd Gen 1.300 Result Diagram: 07/08/17 1640 07/08/17 1810 Imaging Last 24 hours Impressions Pelvis X-Ray 07/08/17 1559 Signed Impressions: Service Date/Time: Saturday, July 08, 2017 16:15 - CONCLUSION: No acute disease. Ezio Caro MD Chest X-Ray 07/08/17 1559 Signed Impressions: Service Date/Time: Saturday, July 08, 2017 16:12 - CONCLUSION: No acute disease. Anatoliy García MD FACR Caprini VTE Risk Assessment Caprini VTE Risk Assessment: Mod/High Risk (score >= 2) Caprini Risk Assessment Model Point Value = 1 Point Value = 2 Point Value = 3 Point Value = 5 Age 41-60 Minor surgery BMI > 25 kg/m2 Swollen legs Varicose veins or History of unexplained or recurrent spontaneous Oral contraceptives or hormone replacement Sepsis (< 1 month) Serious lung disease, including pneumonia (< 1 month) Abnormal pulmonary function Acute myocardial infarction Congestive heart failure (< 1 month) History of inflammatory bowel disease Medical patient at bed rest Age 61-74 Arthroscopic surgery Major open surgery (> 45 min) Laparoscopic surgery (> 45 min) Malignancy Confined to bed (> 72 hours) Immobilizing plaster cast Central venous access Age >= 75 History of VTE Family history of VTE Factor V Leiden Prothrombin [id number] Lupus anticoagulant Anticardiolipin antibodies Elevated serum homocysteine Heparin-induced thrombocytopenia Other congenital or acquired thrombophilia Stroke (< 1 month) Elective arthroplasty Hip, pelvis, or leg fracture Acute spinal cord injury (< 1 month) Prophylaxis Regimen Total Risk Factor Score Risk Level Prophylaxis Regimen 0-1 Low Early ambulation 2 Moderate Order ONE of the following: *Sequential Compression Device (SCD) *Heparin 5000 units SQ BID 3-4 Higher Order ONE of the following medications: *Heparin 5000 units SQ TID *Enoxaparin/Lovenox 40 mg SQ daily (WT < 150 kg, CrCl > 30 mL/min) *Enoxaparin/Lovenox 30 mg SQ daily (WT < 150 kg, CrCl > 10-29 mL/min) *Enoxaparin/Lovenox 30 mg SQ BID (WT < 150 kg, CrCl > 30 mL/min) AND/OR *Sequential Compression Device (SCD) 5 or more Highest Order ONE of the following medications: *Heparin 5000 units SQ TID (Preferred with Epidurals) *Enoxaparin/Lovenox 40 mg SQ daily (WT < 150 kg, CrCl > 30 mL/min) *Enoxaparin/Lovenox 30 mg SQ daily (WT < 150 kg, CrCl > 10-29 mL/min) *Enoxaparin/Lovenox 30 mg SQ BID (WT < 150 kg, CrCl > 30 mL/min) AND *Sequential Compression Device (SCD) Assessment and Plan Assessment and Plan Seizure -Continue Keppra per home dosing -Seizure precaution Hyperkalemia -Sodium bicarbonate, calcium, Kayexalate received in the emergency department -Sodium bicarb drip initiated while awaiting dcs engineer -Emergent hemodialysis catheter placement followed by HD ESRD -HD per nephrology HIV -Continue home meds DVT GI prophylaxis -Subcu heparin -Pepcid Critical Care: The total critical care time was 35 minutes. Time to perform other separately billable procedures was not included in the critical care time. Bobby Evangelista MD Jul 08, 2017 9:44 pm
[2017-07-08] MEDS ORDERED: LACTULOSE SYRUP 20 GM/30 ML CUP PO PRN (21:45)
[2017-07-08] MEDS ORDERED: HEPARIN SODIUM - IV 10,000 UNITS/10 ML VIAL PRN (21:45)
[2017-07-08] MEDS ORDERED: ONDANSETRON HCL 4 MG/2 ML VIAL IV PUSH PRN ×2 (21:45)
[2017-07-08] MEDS ORDERED: SENNOSIDES 8.6 MG TAB PO PRN (21:45)
[2017-07-08] MEDS ORDERED: HEPARIN SODIUM - IV 10,000 UNITS/10 ML VIAL IV FLUSH PRN (21:45)
[2017-07-08] MEDS ORDERED: GELATIN 12 MM/7 MM FOAM TOP PRN (21:45)
[2017-07-08] MEDS ORDERED: RESP: ALBUTEROL 2.5 MG/IPRATROPIUM 0.5 MG NEB (PRN) INH (21:45)
[2017-07-08] MEDS ORDERED: GENTAMICIN SULFATE 20 MG/2 ML VIAL OTHER PRN (21:45)
[2017-07-08] MEDS ORDERED: MAGNESIUM HYDROXIDE SUSP 30 ML CUP PO PRN (21:45)
[2017-07-08] MEDS ORDERED: NITROGLYCERIN 0.4 MG SL 25 TABS/BTL SL PRN (21:45)
[2017-07-08] MEDS ORDERED: HEPARIN SODIUM - SQ 10,000 UNITS/ML VIAL SQ SCH (21:45)
[2017-07-08] MEDS ORDERED: BISACODYL 10 MG SUPP RECTAL PRN (21:45)
[2017-07-08] MEDS ORDERED: ALBUMIN 25% INJ 100 ML IV PRN (21:45)
[2017-07-08] MEDS ORDERED: MISCELLANEOUS NURSING INFORMATION XX SCH (21:45)
[2017-07-08] MEDS ORDERED: ACETAMINOPHEN 325 MG TAB PO PRN (21:45)
[2017-07-08] MEDS ORDERED: MANNITOL 12.5 GM/50 ML VIAL IV PRN (21:45)
[2017-07-08] MEDS ORDERED: CHLORHEXIDINE GLUCONATE 2 % 1 PACK (2 CLOTHS) TOP PRN (21:45)
[2017-07-08] MEDS ORDERED: cloNIDine HCL 0.1 MG TAB PO PRN (21:45)
[2017-07-08 22:25] LABS: MAGNESIUM 2.1 MG/DL (1.5-2.5)
[2017-07-08 22:30] LABS: PHOSPHORUS 8.2 MG/DL (2.5-4.9)
[2017-07-08 22:35] VITALS: BP 115/67; PULSE 106; RESP 18; O2SAT 98
[2017-07-08 22:45] LABS: PROTHROMBIN TIME - PATIENT 9.9 SEC (9.8-11.6)
[2017-07-09] VITALS (12 sets, daily range): BP systolic 93–121; BP diastolic 57–84; PULSE 80–112; RESP 16–26; TEMP 98.2–98.7; O2SAT 100
[2017-07-09] MEDS: SODIUM BICARBONATE 8.4% INJ 150 MEQ in DEXTROSE 5% IN WATE 1000ML INJ 1,000 ML IV SCH ×6 (00:41→23:16)
[2017-07-09] MEDS: ACETAMINOPHEN 325 MG TAB PO PRN (01:37)
[2017-07-09] MEDS: CHLORHEXIDINE GLUCONATE 2 % 1 PACK (2 CLOTHS) TOP SCH (04:00)
[2017-07-09 04:08] LABS: AUTOMATED NEUTROPHIL # 3.5 TH/MM3 (1.8-7.7); BASOPHIL # 0.1 TH/MM3 (0-0.2); BASOPHIL % 0.7 % (0.0-2.0); EOSINOPHIL # 0.2 TH/MM3 (0-0.4); EOSINOPHIL % 3.1 % (0.0-4.0); HEMATOCRIT 33.2 % (39.0-51.0); HEMOGLOBIN 10.9 GM/DL (13.0-17.0); LYMPHOCYTE # 3.1 TH/MM3 (1.0-4.8); MEAN CELL VOLUME 78.9 FL (80.0-100.0); MEAN CORPUSCULAR HEMOGLOBIN 25.9 PG (27.0-34.0); MEAN CORPUSCULAR HGB CONC 32.9 % (32.0-36.0); MEAN PLATELET VOLUME 8.5 FL (7.0-11.0); MONOCYTE # 0.8 TH/MM3 (0-0.9); NEUT % 45.2 % (16.0-70.0); PLATELET COUNT 328 TH/MM3 (150-450); RED BLOOD COUNT 4.21 MIL/MM3 (4.50-5.90); WHITE BLOOD COUNT 7.7 TH/MM3 (4.0-11.0)
[2017-07-09 04:53] LABS: ALBUMIN 3.1 GM/DL (3.4-5.0); BICARBONATE 26.5 MEQ/L (21.0-32.0); CALCIUM 6.5 MG/DL (8.5-10.1); CREATININE 4.63 MG/DL (0.60-1.30); MAGNESIUM 1.8 MG/DL (1.5-2.5); PHOSPHORUS 5.9 MG/DL (2.5-4.9); TOTAL BILIRUBIN ADULT 0.3 MG/DL (0.2-1.0); TOTAL PROTEIN 7.6 GM/DL (6.4-8.2)
[2017-07-09 05:18] LABS: CALCIUM-PROTEIN CORRECTED 6.3 MG/DL (8.5-10.1)
--- NOTE | 2017-07-09 05:52 | PD.PROCEDR ---
Procedure Note Procedure Hemodialysis catheter placement A time-out was completed verifying correct patient, procedure, site, positioning , and special equipment if applicable. The patient was placed in a dependent position appropriate for central line placement based on the vein to be cannulated. The patients right groin was prepped and draped in sterile fashion. 1% Lidocaine was used to anesthetize the surrounding skin area. A double lumen hemodialysis catheter was introduced into the the common femoral vein using the Seldinger technique and under ultrasound guidance. The catheter was threaded smoothly over the guide wire and appropriate blood return was obtained. Each lumen of the catheter was evacuated of air and flushed with sterile saline. The catheter was then sutured in place to the skin and a sterile dressing applied. Perfusion to the extremity distal to the point of catheter insertion was checked and found to be adequate. Estimated Blood Loss: 1ml The patient tolerated the procedure well and there were no complications. Bobby Evangelista MD Jul 09, 2017 5:52 am
[2017-07-09] MEDS ORDERED: CALCIUM GLUCONATE INJ 2 GM in DEXTROSE 5% IN WATER 100ML INJ 100 ML IV ONE ×2 (06:00)
[2017-07-09] MEDS ORDERED: levETIRAcetam 500 MG TAB PO SCH (09:00)
[2017-07-09] MEDS: DOCUSATE SODIUM 50 MG/SENNA 8.6 MG TAB PO SCH ×2 (09:00→21:00)
[2017-07-09] MEDS: SODIUM CHLORIDE 0.9% FLUSH 10 ML FLUSH IV FLUSH SCH ×2 (09:00→21:11)
[2017-07-09] MEDS: RITONAVIR 100 MG TAB PO SCH ×2 (09:01→21:11)
[2017-07-09] MEDS: FAMOTIDINE 20 MG TAB PO SCH (09:02)
[2017-07-09] MEDS: diphenhydrAMINE HCL 25 MG CAP PO PRN ×2 (09:02→21:10)
[2017-07-09] MEDS: CALCIUM ACETATE 667 MG CAP PO SCH ×3 (09:02→17:36)
[2017-07-09] MEDS: FOSAMPRENAVIR CALCIUM PO SCH ×2 (09:02→21:11)
[2017-07-09] MEDS: HEPARIN SODIUM - SQ 10,000 UNITS/ML VIAL SQ SCH ×4 (09:02→23:16)
[2017-07-09] MEDS: ABACAVIR SULFATE 300 MG TAB PO SCH ×2 (09:02→21:11)
[2017-07-09 09:03] LABS: BANDS 2 % (0-6); BASOPHILS 1 % (0-2); CORRECTED NUCLEATED RBC 9 /100 WBC (0-0); LYMPHOCYTES 33 % (9-44); MONOCYTES 8 % (0-8); NEUTROPHIL # MANUAL DIFF 4.3 TH/MM3 (1.8-7.7); NUCLEATED RED BLOOD CELL 9 (0-0); OVALOCYTES 1+ (NORMAL); POLYS (SEG NEUTROPHILS) 54 % (16-70); TARGET CELLS 2+ (NORMAL)
[2017-07-09 09:06] LABS: HOWELL-JOLLY BODIES PRESENT (NONE SEEN)
--- NOTE | 2017-07-09 09:44 | MB ---
cc: Gelacio Solis MD DATE: 07/08/2017 REASON FOR CONSULTATION: End-stage renal disease, came with very high potassium. HISTORY OF PRESENT ILLNESS: This 26-year-old male with a past medical history of HIV disease, seizure disorder, bilateral below knee amputation, chronic anemia, end-stage renal disease on peritoneal dialysis, came to the hospital with seizure. I was called to see the patient because of high potassium and being on dialysis. The patient has been on peritoneal dialysis for almost 5-6 months. He was on hemodialysis before. He was admitted before with high potassium in March, but it was not very high. He usually runs low potassium since he has been on peritoneal dialysis. The patient claims to be compliant with his dialysis treatment. He has a history of seizure and he was taking Keppra and it was not clear that he was taking it regularly. He is saying that he is compliant with his medication. When he came in here this morning the potassium was 7.6. The patient had a reported seizure at home. Now he is fully awake, alert and he denies any shortness of breath, has mild abdominal discomfort around the PD catheter site. The patient was given insulin, D50, calcium and Kayexalate for hyperkalemia and also he has low calcium level. PAST MEDICAL HISTORY: History of HIV disease, end-stage renal disease on peritoneal dialysis, chronic anemia, seizure disorder. PAST SURGICAL HISTORY: Bilateral below knee amputation, left forearm amputation, PD catheter placement, splenectomy. REVIEW OF SYSTEMS: Patient has generalized weakness, feeling tired. Denies any headache, dizziness. There is no history of fever, nausea, vomiting. No shortness of breath. He has mild abdominal discomfort. There is no history of diarrhea. SOCIAL HISTORY: The patient is single, lives with his aunt and grandmother. There is no history of smoking. FAMILY HISTORY: The patient has no known family history of renal disease. ALLERGIES: VANCOMYCIN, PENICILLIN G, AMOXICILLIN AND CLINDAMYCIN. MEDICATIONS: Currently, he is on: 1. IV fluid with sodium bicarbonate at 75 an hour. 2. Ziagen 300 mg b.i.d. 3. Lexiva 700 mg b.i.d. 4. Keppra 500 mg b.i.d. 5. Norvir 100 mg b.i.d. 6. Janeen-Colace 1 tablet b.i.d. 7. Epivir 150 mg daily. 8. Pepcid 20 mg daily. 9. Heparin 5000 units subcutaneous q. 8 hourly. 10. He has received 1 dose of calcium gluconate, dextrose, insulin, Kayexalate. 11. He is on PhosLo 1334 mg t.i.d. PHYSICAL EXAMINATION: GENERAL: Awake, alert. He is not in acute distress. VITAL SIGNS: His last blood pressure is 107/75, temperature 97.7, oxygen saturation on room air is 98%. HEENT: Pupils are mid-constricted. Nonicteric sclerae. Conjunctivae pale. NECK: Supple. JVD is not elevated. LUNGS: The patient has bilateral good air entry with occasional wheezing. HEART: S1, S2. Regular. ABDOMEN: Distended, soft, lax, there is no tenderness. Bowel sounds positive. EXTREMITIES: He has bilateral below knee amputation and left arm amputation. INVESTIGATIONS: WBC count is 10.5, hemoglobin 9.7, platelet count of 407. Sodium is 136, potassium 7.6, chloride 103, bicarbonate 18.9, BUN 60, creatinine 6.9, calcium of 6.5, phosphorus is 8.5, magnesium is 2.0. Total protein is 8.4. INR is 1.0. IMAGING STUDIES: Chest x-ray done shows that the lung tony are clear. ____ x-ray was done which shows no acute disease. ASSESSMENT AND PLAN: 1. Severe hyperkalemia. 2. End-stage renal disease on peritoneal dialysis. 3. Hypocalcemia. 4. Seizure. 5. Anemia. 6. History of human immunodeficiency virus disease. The patient has possibly some compliance issue. His potassium is very high and phosphorus is also high with low calcium. I discussed with him, but he is saying that he is compliant with his medication. Since the potassium is very high the patient will need one session of hemodialysis with low potassium bath. I discussed with the patient. He was initially refusing, but then he agreed about getting the vascath and start him on dialysis. I already called the dialysis nurse and tomorrow we will put him back on his peritoneal dialysis and get the vascath out. The patient was told to be compliant with his dialysis treatment and his medications. The patient was seen by the roll repairer, Dr. Upton in the ER and he kindly agreed to put the vascath. Thank you for the consultation. I will follow the patient while he is in the hospital. Levi Solis MD AQJ/rt , 10:31 PM , 11:20 PM ANGE
[2017-07-09] MEDS ORDERED: SODIUM CHLORIDE 0.9% FLUSH 10 ML FLUSH IV FLUSH PRN (09:45)
[2017-07-09] MEDS ORDERED: HEPARIN SODIUM - IV 10,000 UNITS/10 ML VIAL XX PRN (09:45)
[2017-07-09] MEDS ORDERED: POTASSIUM CHLORIDE 10 MEQ CONTROLLED RELEASE TAB PO ONE (09:45)
--- NOTE | 2017-07-09 09:49 | HHI.NPPN ---
Subjective General Problems: Anemia, Hyperparathyroidism Renal Failure: End Stage Renal Disease Additional Remarks Patient seen during dialysis. No SOB noted. (Lou Hoffman) Review of Systems Skin Skin Remarks Pruritus (Lou Hoffman) Objective Data Data Vital Signs Date Time Temp Pulse Resp B/P (MAP) Pulse Ox O2 Delivery O2 Flow Rate FiO2 07/09/17 06:00 94 07/09/17 04:00 102 07/09/17 04:00 98.6 102 16 114/80 (91) 100 07/09/17 02:00 102 07/09/17 00:00 98.2 112 22 121/83 (96) 100 07/09/17 00:00 112 07/08/17 22:47 07/08/17 22:35 106 18 115/67 (83) 98 Room Air 07/08/17 19:59 85 16 107/75 (86) 98 Room Air 07/08/17 16:15 97.7 95 20 126/86 (99) 99 07/08/17 16:15 100 Room Air (Lou Hoffman) -: 07/09/17 0348 07/09/17 0348 Imaging Last Impressions Pelvis X-Ray 07/08/17 1559 Signed Impressions: Service Date/Time: Saturday, July 08, 2017 16:15 - CONCLUSION: No acute disease. Ezio Caro MD Chest X-Ray 07/08/17 1559 Signed Impressions: Service Date/Time: Saturday, July 08, 2017 16:12 - CONCLUSION: No acute disease. Anatoliy García MD FACR (Lou Hoffman) Physical Exam General Appearance: No Acute Distress, Comfortable (Lou Hoffman) Pulmonary Resp Exam: Breath Sounds Equal, No Distress (Lou Hoffman) Cardiology CV Exam: Regular, Normal Sinus Rhythm (Lou Hoffman) Gastrointestinal/Abdomen GI Exam: Non-Tender, Bowel Sounds Present (Lou Hoffman) Genitourinary Exam: Flank Non-Tender (Lou Hoffman) Integumentary Skin Exam: Clear, Warm (Lou Hoffman) Extremeties Extremeties Remarks Bilateral lower extremity amputation and left upper extremity (Lou Hoffman) Neurologic Neuro Exam: Awake (Lou Hoffman) Assessment/Plan Assessment Summary: [place] Hyperparathyroid, End Stage Renal Disease Electrolyte Assessment: Hypocalcemia, Hypokalemia Problem List: (1) ESRD (end stage renal disease) on dialysis ICD Codes: N18.6 - End stage renal disease; Z99.2 - Dependence on renal dialysis Plan: ESRD on PD at home. Vas cath placed in right groin and patient was dialyzed last night and is currently being done this morning. Plan Continue phoslo Potassium at 2.8 this morning will order replacement and recheck at 1700 Will resume Peritoneal dialysis tonight (2) Breakthrough seizure ICD Codes: G40.919 - Epilepsy, unspecified, intractable, without status epilepticus Status: Acute Plan: continue current treatment (3) Hypocalcemia ICD Codes: E83.51 - Hypocalcemia Status: Acute Plan: IV replacement given (4) HIV (human immunodeficiency virus infection) ICD Codes: Z21 - Asymptomatic human immunodeficiency virus [HIV] infection status Status: Chronic Plan: Continue home medications (5) Anemia ICD Codes: D64.9 - Anemia Status: Acute Plan: Monitoring (Lou Hoffman) Problem List: (1) ESRD (end stage renal disease) on dialysis ICD Codes: N18.6 - End stage renal disease; Z99.2 - Dependence on renal dialysis Plan: ESRD on PD at home. Vas cath placed in right groin and patient was dialyzed last night and is currently being done this morning. Plan Continue phoslo Potassium at 2.8 this morning will order replacement and recheck at 1700 Will resume Peritoneal dialysis tomorrow. Patient seen and examined, agree with above. HD done again today, possibly uremic. (2) Breakthrough seizure ICD Codes: G40.919 - Epilepsy, unspecified, intractable, without status epilepticus Status: Acute Plan: continue current treatment (3) Hypocalcemia ICD Codes: E83.51 - Hypocalcemia Status: Acute Plan: IV replacement given (4) HIV (human immunodeficiency virus infection) ICD Codes: Z21 - Asymptomatic human immunodeficiency virus [HIV] infection status Status: Chronic Plan: Continue home medications (5) Anemia ICD Codes: D64.9 - Anemia Status: Acute Plan: Monitoring (Levi Solis MD) Lou Hoffman Jul 09, 2017 09:49 Levi Solis MD Jul 09, 2017 18:08
[2017-07-09] MEDS ORDERED: LORazepam 2 MG/ML VIAL IV PUSH PRN (10:00)
[2017-07-09] MEDS ORDERED: FOSPHENYTOIN INJ 1,000 MGPE in SODIUM CHLORIDE 0.9% INJ 50 ML IV ONE (10:00)
--- NOTE | 2017-07-09 10:03 | HHI.CCPN ---
Subjective Remarks/Hospital Course 26-year-old male with history of seizure disorder on Keppra, ESRD with home peritoneal dialysis, left forearm amputation, bilateral BKA's, presents for evaluation of seizure. Patient reports compliance with Keppra as well as his peritoneal dialysis. Labs reviewed and are remarkable for potassium 7.6, bicarb 18.9, BUN 60, creatinine 6.97, GFR 11, calcium 6.5. Patient denies having had fevers. He does have slight pain around his peritoneal dialysis catheter. States his last dialysate fluid was clear. There are no peritoneal signs on his abdominal exam. He was written for D50, insulin, calcium, and Kayexalate to treat his hyperkalemia and hypocalcemia. The lab results were discussed with patient's seat joiner who suggested emergent hemodialysis. SUBJ 07/09: Patient had emergent hemodialysis yesterday getting hemodialysis again today. Calcium was low and was replaced. When initially rounded patient was AAO 3. I was called back to the room as the patient had developed tonic- clonic seizure activity was lasted for 1 month but resolved without Ativan. Post seizure patient was in postictal state somnolent. I will load him with 1 g of fosphenytoin followed by 100 mg every 8 hours. Check EEG Ativan 1 mg every 2 hours as needed for seizures. Neurology consult placed Objective Vital Signs Date Time Temp Pulse Resp B/P (MAP) Pulse Ox O2 Delivery O2 Flow Rate FiO2 07/09/17 06:00 94 07/09/17 04:00 98.6 16 114/80 (91) 100 07/08/17 22:35 Room Air Intake and Output 07/09/17 07/09/17 07/09/17 07:59 15:59 23:59 Intake Total 240 ml Output Total 3000 ml Balance -2760 ml Result Diagram: 07/09/17 0348 07/09/17 0348 Imaging Last 24 hours Impressions Pelvis X-Ray 07/08/17 [id number] Signed Impressions: Service Date/Time: Saturday, July 08, 2017 16:15 - CONCLUSION: No acute disease. Ezio Caro MD Chest X-Ray 07/08/17 3658 Signed Impressions: Service Date/Time: Saturday, July 08, 2017 16:12 - CONCLUSION: No acute disease. Anatoliy García MD FACR Objective Remarks GENERAL: This is a well-nourished, petite patient, who was initially able 3 but now postictal, lethargic somnolent SKIN: No rashes, ecchymoses or lesions. Cool and dry. Permacath in place with dry dirty dressing HEAD: Atraumatic. Normocephalic. EYES: Pupils equal round and reactive. Extraocular motions intact. No scleral icterus. No injection or drainage. ENT: Nose without bleeding, purulent drainage or septal hematoma. Airway patent. NECK: Trachea midline. No JVD or lymphadenopathy. Supple, nontender, no meningeal signs. CARDIOVASCULAR: Regular rate and rhythm without murmurs, gallops, or rubs. RESPIRATORY: Clear to auscultation. Breath sounds equal bilaterally. No wheezes , rales, or rhonchi. GASTROINTESTINAL: Abdomen soft, non-tender, nondistended. PDcath in place with dry dirty dressing. MUSCULOSKELETAL: Left upper extremity partial amputation and bilateral BKA with intact stumps NEUROLOGICAL: Prior to seizure patient had normal exam. Post seizure somnolent hard to wake up A/P Assessment and Plan Uncontrolled seizures Postictal state Seizure disorder -Loading dose of fosphenytoin 1 g and scheduled dose of 100 mg IV every 8 hours -Check daily Dilantin level -Neurology consult, EEG -Ativan 1 mg IV every 8 hours as needed for seizures -Continue Keppra per home dosing -Seizure precaution Hyperkalemia -Sodium bicarbonate, calcium, Kayexalate received in the emergency department -Sodium bicarb drip initiated while awaiting seat joiner, will DC -Emergent hemodialysis catheter placement followed by HD yesterday and today ESRD -HD per nephrology HIV -Continue home meds DVT GI prophylaxis -Subcu heparin -Pepcid Critical Care: The total critical care time was 35 minutes. Time to perform other separately billable procedures was not included in the critical care time. Patient is critically ill with uncontrolled seizures. Fosphenytoin loaded as above. He is at acute drinks for neuro and respiratory decompensation. Continue ICU care Chintan Ugarte MD Jul 09, 2017 10:03
[2017-07-09] MEDS: FOSPHENYTOIN SODIUM 100 MG PE/2 ML VIAL IV SCH ×2 (13:11→21:11)
[2017-07-09 16:29] LABS: ALBUMIN 2.9 GM/DL (3.4-5.0); ALKALINE PHOSPHATASE 144 U/L (45-117); ALT (GPT) 147 U/L (12-78); AST (GOT) 50 U/L (15-37); BICARBONATE 27.2 MEQ/L (21.0-32.0); BLOOD UREA NITROGEN 17 MG/DL (7-18); CALCIUM 8.7 MG/DL (8.5-10.1); CHLORIDE 102 MEQ/L (98-107); CREATININE 3.79 MG/DL (0.60-1.30); GLOMERULAR FILTRATION RATE 23 ML/MIN (>89); GLUCOSE,RANDOM 122 MG/DL (74-106); SODIUM (NA) 141 MEQ/L (136-145); TOTAL BILIRUBIN ADULT 0.4 MG/DL (0.2-1.0); TOTAL PROTEIN 7.4 GM/DL (6.4-8.2)
--- NOTE | 2017-07-09 18:46 | EKG ---
Date Performed: 07/08/2017 Time Performed: 21:10:09 PTAGE: 26 years EKG: Sinus rhythm MINIMAL VOLTAGE CRITERIA FOR LVH, CONSIDER NORMAL VARIANT PROLONGED QT INTERVAL Since the previous t racing, no significant change noted ABNORMAL ECG PREVIOUS TRACING : 05/20/2017 02.08 DOCTOR: Juan Jose Prakash Interpretating Date/Time 07/09/2017 18:44:34
--- NOTE | 2017-07-09 20:23 | MB ---
cc: Mark Barrera MD, PhD DATE: 07/09/2017 REASON FOR CONSULTATION: Seizure. HISTORY OF PRESENT ILLNESS: This is a 26-year-old man who has a history of seizure disorder, treated with Keppra, also with end-stage renal disease. He states that he does take Keppra, does not miss any doses. He states he did have a seizure earlier today. He describes these as a grand mal type seizures. PAST MEDICAL HISTORY: Seizure disorder, end-stage renal disease on peritoneal dialysis, left forearm amputation, bilateral below the knee amputations. NEUROLOGIC EXAMINATION: The patient is alert and oriented x 3. Speech is normal. Comprehension intact. Cranial nerves normal. Motor exam he has no focal deficits. He does have bilateral below the knee amputations and left forearm amputation. LABORATORY DATA: White count 7700, hemoglobin 10.9, hematocrit 33%, platelet count is 328,000. Sodium is 141, potassium 3.7, chloride 102, CO2 27, the BUN is 17, creatinine 3.79, GFR 23, AST 50, ALT is 147. IMPRESSION: Recurrent seizures. The patient has been loaded with Cerebyx. Would recommend continuing that. Also could change him to Dilantin 100 mg t.i.d. Would also recommend increasing Keppra to 500 mg t.i.d. Will follow Dilantin level. Also obtain electroencephalogram and brain MRI. Mark Barrera MD, PhD SAMMY/rt , 07:41 PM , 08:22 PM
[2017-07-10] VITALS (12 sets, daily range): BP systolic 87–113; BP diastolic 53–84; PULSE 77–90; RESP 16–40; TEMP 98–98.7; O2SAT 96–100
[2017-07-10] MEDS: TEMAZEPAM 15 MG CAP PO PRN ×2 (00:56→21:41)
[2017-07-10] MEDS: ACETAMINOPHEN 325 MG TAB PO PRN (00:57)
[2017-07-10] MEDS: CHLORHEXIDINE GLUCONATE 2 % 1 PACK (2 CLOTHS) TOP SCH (04:00)
[2017-07-10] MEDS: FOSPHENYTOIN SODIUM 100 MG PE/2 ML VIAL IV SCH ×2 (05:48→14:45)
--- NOTE | 2017-07-10 08:51 | MG ---
cc: Erwin Wray MD EEG RECORD #[id number] DATE OF : 1990 5-7 Hz activity, 20-50 microvolts with semirhythmic low-amplitude delta activity occurring as well, generalized fashion asynchronous rhythms. sharp wave type bursts. generalized slowing. Some spindles suggestive of stage II sleep. Evidence of phase reversal at T7 region, epoch 23. Occasional leg jerk occurring. No clear epileptic correlation. phase reversal at 7. Paroxysmal large amplitude delta bursts occurring. Phase reversal at 7, epoch 97. EEG variability, reactivity. Reduced driving with photic stimulation. Single lead EKG showed sinus rhythm. INTERPRETATION: Mild encephalopathy, sleep state plus cortical irritability or structural lesion in the left frontal region. Clinical-neuroimaging correlation suggested. Erwin Wray MD MG/rt , 08:52 PM , 09:18 PM [facility]
[2017-07-10] MEDS: CALCIUM ACETATE 667 MG CAP PO SCH ×3 (09:00→18:00)
[2017-07-10] MEDS: DOCUSATE SODIUM 50 MG/SENNA 8.6 MG TAB PO SCH ×2 (09:00→21:00)
[2017-07-10] MEDS: SODIUM CHLORIDE 0.9% FLUSH 10 ML FLUSH IV FLUSH SCH ×2 (09:00→21:16)
[2017-07-10] MEDS: ABACAVIR SULFATE 300 MG TAB PO SCH ×2 (09:51→21:06)
[2017-07-10] MEDS: levETIRAcetam 500 MG TAB PO SCH ×3 (09:51→18:04)
[2017-07-10] MEDS: HEPARIN SODIUM - SQ 10,000 UNITS/ML VIAL SQ SCH ×2 (09:51→18:04)
[2017-07-10] MEDS: FAMOTIDINE 20 MG TAB PO SCH (09:51)
[2017-07-10] MEDS: RITONAVIR 100 MG TAB PO SCH ×2 (09:51→21:06)
[2017-07-10] MEDS: FOSAMPRENAVIR CALCIUM PO SCH ×2 (09:51→21:06)
[2017-07-10 10:51] LABS: AUTOMATED NEUTROPHIL # 2.1 TH/MM3 (1.8-7.7); BASOPHIL % 0.6 % (0.0-2.0); EOSINOPHIL # 0.3 TH/MM3 (0-0.4); EOSINOPHIL % 5.8 % (0.0-4.0); HEMATOCRIT 33.2 % (39.0-51.0); HEMOGLOBIN 10.7 GM/DL (13.0-17.0); LYMPH % 44.5 % (9.0-44.0); LYMPHOCYTE # 2.6 TH/MM3 (1.0-4.8); MEAN CORPUSCULAR HEMOGLOBIN 25.7 PG (27.0-34.0); MEAN CORPUSCULAR HGB CONC 32.1 % (32.0-36.0); MEAN PLATELET VOLUME 8.6 FL (7.0-11.0); MONO % 13.3 % (0.0-8.0); MONOCYTE # 0.8 TH/MM3 (0-0.9); NEUT % 35.8 % (16.0-70.0); PLATELET COUNT 238 TH/MM3 (150-450); RED BLOOD COUNT 4.14 MIL/MM3 (4.50-5.90); WHITE BLOOD COUNT 5.9 TH/MM3 (4.0-11.0)
[2017-07-10 11:25] LABS: ALBUMIN 2.8 GM/DL (3.4-5.0); BICARBONATE 36.9 MEQ/L (21.0-32.0); CALCIUM 7.3 MG/DL (8.5-10.1); CREATININE 5.01 MG/DL (0.60-1.30); MAGNESIUM 1.9 MG/DL (1.5-2.5); PHENYTOIN (DILANTIN) 21.1 MCG/ML (10.0-20.0); TOTAL BILIRUBIN ADULT 0.3 MG/DL (0.2-1.0)
--- NOTE | 2017-07-10 11:26 | HHI.NPPN ---
Subjective General Problems: Anemia, Hyperparathyroidism Renal Failure: End Stage Renal Disease History of Present Illness This 26-year-old male with a past medical history of HIV disease, seizure disorder, bilateral below knee amputation, chronic anemia, end-stage renal disease on peritoneal dialysis, came to the hospital with seizure. Nephrology was called to see the patient because of high potassium and being on dialysis. The patient has been on peritoneal dialysis for almost 5-6 months. He was on hemodialysis before. He was admitted before with high potassium in March, but it was not very high. He usually runs low potassium since he has been on peritoneal dialysis. The patient claims to be compliant with his dialysis treatment. He has a history of seizure and he was taking Keppra and it was not clear that he was taking it regularly. He is saying that he is compliant with his medication. When he came in here this morning the potassium was 7.6. The patient had a reported seizure at home. Now he is fully awake, alert and he denies any shortness of breath, has mild abdominal discomfort around the PD catheter site. The patient was given insulin , D50, calcium and Kayexalate for hyperkalemia and also he has low calcium level. Additional Remarks Seizure activity yesterday. Patient resting comfortably somewhat somnolent. (Lou Hoffman) Review of Systems Skin Skin Remarks Pruritus (Lou Hoffman) Objective Data Data Vital Signs Date Time Temp Pulse Resp B/P (MAP) Pulse Ox O2 Delivery O2 Flow Rate FiO2 07/10/17 06:00 82 07/10/17 04:00 78 07/10/17 04:00 98.4 78 20 87/53 (64) 96 07/10/17 02:00 77 07/10/17 00:00 98.6 80 20 108/72 (84) 100 07/10/17 00:00 80 07/09/17 22:00 86 07/09/17 20:00 100 Room Air 07/09/17 20:00 82 07/09/17 20:00 98.7 82 20 112/77 (89) 100 07/09/17 18:00 84 07/09/17 16:00 80 07/09/17 16:00 98.6 80 26 108/65 (79) 100 07/09/17 14:00 80 07/09/17 12:00 83 07/09/17 12:00 98.4 83 19 93/57 (89) 100 (Lou Hoffman) -: 07/10/17 1033 07/09/17 1524 Imaging Last Impressions Pelvis X-Ray 07/08/17 1559 Signed Impressions: Service Date/Time: Saturday, July 08, 2017 16:15 - CONCLUSION: No acute disease. Ezio Caro MD Chest X-Ray 07/08/17 1559 Signed Impressions: Service Date/Time: Saturday, July 08, 2017 16:12 - CONCLUSION: No acute disease. Anatoliy García MD FACR Tubes & Lines: Vas-Cath Tubes & Lines Comment right femoral (Lou Hoffman) Physical Exam General Appearance: No Acute Distress, Comfortable (Lou Hoffman) Pulmonary Resp Exam: Breath Sounds Equal, No Distress (Lou Hoffman) Cardiology CV Exam: Regular, Normal Sinus Rhythm (Lou Hoffman) Gastrointestinal/Abdomen GI Exam: Non-Tender, Bowel Sounds Present (Lou Hoffman) Genitourinary Exam: Flank Non-Tender (Lou Hoffman) Integumentary Skin Exam: Clear, Warm (Lou Hoffman) Extremeties Extremeties Remarks Bilateral lower extremity amputation and left upper extremity (Lou Hoffman) Neurologic Neuro Exam: Awake (Lou Hoffman) Assessment/Plan Assessment Summary: [place] Hyperparathyroid, End Stage Renal Disease Electrolyte Assessment: Hypocalcemia, Hypokalemia Problem List: (1) ESRD (end stage renal disease) on dialysis ICD Codes: N18.6 - End stage renal disease; Z99.2 - Dependence on renal dialysis Plan: ESRD on PD at home. Vas cath in right groin and patient. Labs pending today but labs repeated yesterday afternoon with normal potassium Plan Continue Peritoneal dialysis nightly Continue phoslo Follow BMP (2) Breakthrough seizure ICD Codes: G40.919 - Epilepsy, unspecified, intractable, without status epilepticus Status: Acute Plan: continue current treatment (3) Hypocalcemia ICD Codes: E83.51 - Hypocalcemia Status: Acute Plan: Resolved (4) HIV (human immunodeficiency virus infection) ICD Codes: Z21 - Asymptomatic human immunodeficiency virus [HIV] infection status Status: Chronic Plan: Continue home medications (5) Anemia ICD Codes: D64.9 - Anemia Status: Acute Plan: Monitoring (Lou Hoffman) Problem List: (1) ESRD (end stage renal disease) on dialysis ICD Codes: N18.6 - End stage renal disease; Z99.2 - Dependence on renal dialysis Plan: ESRD on PD at home. Vas cath in right groin and patient. Labs pending today but labs repeated yesterday afternoon with normal potassium Plan Continue Peritoneal dialysis nightly Continue phoslo Follow BMP. Patient seen and examined, agree with above. Tolerating PD, K is normalized, told to be compliant. (2) Breakthrough seizure ICD Codes: G40.919 - Epilepsy, unspecified, intractable, without status epilepticus Status: Acute Plan: continue current treatment (3) Hypocalcemia ICD Codes: E83.51 - Hypocalcemia Status: Acute Plan: Resolved (4) HIV (human immunodeficiency virus infection) ICD Codes: Z21 - Asymptomatic human immunodeficiency virus [HIV] infection status Status: Chronic Plan: Continue home medications (5) Anemia ICD Codes: D64.9 - Anemia Status: Acute Plan: Monitoring (Levi Solis MD) Lou Hoffman Jul 10, 2017 11:26 Levi Solis MD Jul 13, 2017 18:22
[2017-07-10 11:32] LABS: CALCIUM-PROTEIN CORRECTED 7.4 MG/DL (8.5-10.1)
[2017-07-10 11:37] LABS: CORRECTED NUCLEATED RBC 13 /100 WBC (0-0); LYMPHOCYTES 54 % (9-44); MONOCYTES 5 % (0-8); NEUTROPHIL # MANUAL DIFF 1.9 TH/MM3 (1.8-7.7); NUCLEATED RED BLOOD CELL 13 (0-0); POLYS (SEG NEUTROPHILS) 32 % (16-70)
[2017-07-10 11:38] LABS: HOWELL-JOLLY BODIES PRESENT (NONE SEEN); TARGET CELLS 3+ (NORMAL)
[2017-07-10 11:42] LABS: OVALOCYTES 1+ (NORMAL)
[2017-07-10 11:43] LABS: KERATOCYTES OCC (NORMAL)
[2017-07-10] MEDS ORDERED: HEPARIN SODIUM - IV 10,000 UNITS/10 ML VIAL XX PRN (16:00)
[2017-07-10] MEDS ORDERED: SODIUM CHLORIDE 0.9% FLUSH 10 ML FLUSH IV FLUSH PRN (16:00)
--- NOTE | 2017-07-10 16:48 | RADRPT ---
EXAM DATE/TIME: 07/10/2017 13:57 [place] COMPARISON: CT BRAIN W/O CONTRAST, May 20, 2017, 2:38. INDICATIONS : Seizures. MEDICAL HISTORY : Seizures. HIV. Lymphoma, ESRD on home dialysis. SURGICAL HISTORY : Splenectomy. Bilateral lower leg amputation and left arm. ENCOUNTER: Initial ACUITY: 2 day PAIN SCORE: Nonresponsive. LOCATION: Bilateral cranial TECHNIQUE: Multiplanar, multisequence MRI of the brain was performed without contrast. FINDINGS: CEREBRUM: The ventricles are normal for age. No evidence of midline shift, mass lesion, hemorrhage or acute in farction. No extraaxial fluid collections are seen. The pituitary gland and suprasellar cistern are normal in configuration. WHITE MATTER: No significant signal abnormalities are seen in the white matter. POSTERIOR FOSSA: The cerebellum and brainstem are intact. The 4th ventricle is midline. The cerebellopontine angle is unremarkable. The cerebellar tonsils are normal in position. DIFFUSION IMAGING: No focal areas of restricted diffusion are seen. No evidence of acute infarction. EXTRACRANIAL: The visualized portions of the orbits and paranasal sinuses are unremarkable. CONCLUSION: Negative exam. Bruce Romo MD on July 10, 2017 at 16:26 Board Certified Radiologist. This report was verified electronically.
[2017-07-10] MEDS ORDERED: diphenhydrAMINE HCL ELIXIR 12.5 MG/5 ML CUP PO PRN (17:30)
--- NOTE | 2017-07-10 18:40 | HHI.PR ---
Review/Management Diagnosis continue dilantin 100 mg tid and keppra 500 mg tid Will sign off. please reconsult prn. After dc, schedule follow up with me 3 weeks Diagnosis/Plan: Subjective Subjective Comments No acute events reported No seizures Active Medications Current Medications Medications (Trade) Dose Ordered Sig/Moose Route Start Time Stop Time Status Last Admin (Ziagen) 300 mg BID PO 07/09/17 09:00 07/10/17 09:51 (Phoslo) 1,334 mg TID PO 07/09/17 09:00 07/09/17 17:36 (Lexiva) 700 mg BID PO 07/09/17 09:00 07/10/17 09:51 (Epivir) 150 mg DAILY PO 07/09/17 09:00 07/10/17 09:51 (Norvir) 100 mg BID PO 07/09/17 09:00 07/10/17 09:51 (NS Flush) 2 ml UNSCH PRN IV FLUSH 07/08/17 21:45 (NS Flush) 2 ml BID IV FLUSH 07/09/17 09:00 07/10/17 09:00 (Tylenol) 650 mg Q6H PRN PO 07/08/17 21:45 07/10/17 00:57 (Pepcid) 20 mg DAILY PO 07/09/17 09:00 07/10/17 09:51 (Zofran Inj) 4 mg Q6H PRN IV PUSH 07/08/17 21:45 (Restoril) 15 mg HS PRN PO 07/08/17 21:45 07/10/17 00:56 (Duoneb Neb) 1 ampule Q2HR NEB PRN INH 07/08/17 21:45 Miscellaneous Information 1 Q361D XX 07/08/17 21:45 (Chlorhexidine 2% Cloth) 3 pack Taper DAILY@04 TOP 07/09/17 04:00 07/05/18 03:59 (Chlorhexidine 2% Cloth) 3 pack UNSCH PRN TOP 07/08/17 21:45 (Janeen-Colace) 1 tab BID PO 07/09/17 09:00 (Milk Of Magnesia Liq) 30 ml Q12H PRN PO 07/08/17 21:45 (Senokot) 17.2 mg Q12H PRN PO 07/08/17 21:45 (Dulcolax Supp) 10 mg DAILY PRN RECTAL 07/08/17 21:45 (Lactulose Liq) 30 ml DAILY PRN PO 07/08/17 21:45 Sodium Chloride 1,000 ml @ 0 mls/hr Q0M PRN OTHER 07/08/17 21:42 (Heparin Inj) 8,000 units UNSCH PRN IV FLUSH 07/08/17 21:45 Sodium Chloride 1,000 ml @ 200 mls/hr Q5H PRN IV 07/08/17 21:42 Sodium Chloride 1,000 ml @ 0 mls/hr Q0M PRN OTHER 07/08/17 21:42 (Mannitol Inj) 12.5 gm UNSCH PRN IV 07/08/17 21:45 Albumin Human 100 ml @ 60 mls/hr UNSCH PRN IV 07/08/17 21:45 (NS Flush) 5 ml UNSCH PRN IV FLUSH 07/08/17 21:45 (Heparin Inj) UNSCH PRN .XX 07/08/17 21:45 07/09/17 09:18 (Gentamicin Inj) 20 mg UNSCH PRN OTHER 07/08/17 21:45 07/09/17 09:18 (Zofran Inj) 4 mg UNSCH PRN IV PUSH 07/08/17 21:45 (Tylenol) 650 mg UNSCH PRN PO 07/08/17 21:45 (Benadryl) 25 mg UNSCH PRN PO 07/08/17 21:45 07/09/17 21:10 (Nitrostat Sl) 0.4 mg UNSCH PRN SL 07/08/17 21:45 (Catapres) 0.1 mg UNSCH PRN PO 07/08/17 21:45 (Gelfoam 12 Mm/7 Mm Top) 1 foam UNSCH PRN TOP 07/08/17 21:45 (Heparin Inj) 5,000 units Q8H SQ 07/09/17 00:00 07/10/17 18:04 (Heparin Inj) 1,000 units WITH DIALYSIS PRN XX 07/09/17 09:45 (NS Flush) 10 ml UNSCH PRN IV FLUSH 07/09/17 09:45 (Cerebyx Inj) 100 mgpe Q8HR IV 07/09/17 14:00 07/10/17 14:45 (Ativan Inj) 1 mg Q2H PRN IV PUSH 07/09/17 10:00 (Keppra) 500 mg TID PO 07/10/17 09:00 07/10/17 18:04 (Heparin Inj) 1,000 units WITH DIALYSIS PRN XX 07/10/17 16:00 (NS Flush) 10 ml UNSCH PRN IV FLUSH 07/10/17 16:00 (Benadryl Liq) 12.5 mg Q6H PRN PO 07/10/17 17:30 07/10/17 18:04 Allergies Allergies Coded Allergies amoxicillin (Verified Allergy, Severe, rash all over, 07/08/17) clindamycin (Verified Allergy, Severe, Desquamating rash, 07/08/17) penicillin G (Verified Allergy, Severe, Anaphylaxis, 07/08/17) vancomycin (Verified Allergy, Severe, Desqumating rash, 07/08/17) Exam I&O / VS 07/10/17 07/10/17 07/11/17 15:00 23:00 07:00 Intake Total 1100 ml Balance 1100 ml IV Total 1100 ml Vital Signs Date Time Temp Pulse Resp B/P (MAP) Pulse Ox O2 Delivery O2 Flow Rate FiO2 07/10/17 10:00 84 07/10/17 08:00 90 07/10/17 08:00 98.7 90 40 108/62 (77) 100 07/10/17 07:00 100 Room Air 07/10/17 06:00 82 07/10/17 04:00 78 07/10/17 04:00 98.4 78 20 87/53 (64) 96 07/10/17 02:00 77 07/10/17 00:00 98.6 80 20 108/72 (84) 100 07/10/17 00:00 80 07/09/17 22:00 86 07/09/17 20:00 100 Room Air 07/09/17 20:00 82 07/09/17 20:00 98.7 82 20 112/77 (89) 100 Exam Comments No further seizures. tolerating dilantin well Objective Radiology Results MRI brain--normal Micro and Labs Laboratory Tests Test 07/10/17 10:33 White Blood Count 5.9 Red Blood Count 4.14 Hemoglobin 10.7 Hematocrit 33.2 Mean Corpuscular Volume 80.0 Mean Corpuscular Hemoglobin 25.7 Mean Corpuscular Hemoglobin Concent 32.1 Red Cell Distribution Width 15.0 Platelet Count 238 Mean Platelet Volume 8.6 Neutrophils (%) (Auto) 35.8 Lymphocytes (%) (Auto) 44.5 Monocytes (%) (Auto) 13.3 Eosinophils (%) (Auto) 5.8 Basophils (%) (Auto) 0.6 Neutrophils # (Auto) 2.1 Lymphocytes # (Auto) 2.6 Monocytes # (Auto) 0.8 Eosinophils # (Auto) 0.3 Basophils # (Auto) 0.0 CBC Comment AUTO DIFF Differential Total Cells Counted 100 Neutrophils % (Manual) 32 Lymphocytes % 54 Monocytes % 5 Eosinophils % 9 Neutrophils # (Manual) 1.9 Nucleated Red Blood Cells 13 Differential Comment FINAL DIFF MANUAL Platelet Estimate NORMAL Platelet Morphology Comment ENLARGED Target Cells 3+ Ovalocytes 1+ [place]ine Bodies PRESENT Keratocytes OCC Blood Urea Nitrogen 19 Creatinine 5.01 Random Glucose 81 Total Protein 7.0 Albumin 2.8 Calcium Level 7.3 Phosphorus Level 4.0 Magnesium Level 1.9 Alkaline Phosphatase 127 Aspartate Amino Transf (AST/SGOT) 36 Alanine Aminotransferase (ALT/SGPT) 104 Total Bilirubin 0.3 Sodium Level 142 Potassium Level 3.2 Chloride Level 95 Carbon Dioxide Level 36.9 Anion Gap 10 Estimat Glomerular Filtration Rate 17 Protein Corrected Calcium 7.4 Phenytoin (Dilantin) Level 21.1 Diagnostic Tests EEG--left frontal irritability Mark Barrera MD PhD Jul 10, 2017 18:40
--- NOTE | 2017-07-10 20:04 | HHI.CCPN ---
Subjective Remarks/Hospital Course 26-year-old male with history of seizure disorder on Keppra, ESRD with home peritoneal dialysis, left forearm amputation, bilateral BKA's, presents for evaluation of seizure. Patient reports compliance with Keppra as well as his peritoneal dialysis. Labs reviewed and are remarkable for potassium 7.6, bicarb 18.9, BUN 60, creatinine 6.97, GFR 11, calcium 6.5. Patient denies having had fevers. He does have slight pain around his peritoneal dialysis catheter. States his last dialysate fluid was clear. There are no peritoneal signs on his abdominal exam. He was written for D50, insulin, calcium, and Kayexalate to treat his hyperkalemia and hypocalcemia. The lab results were discussed with patient's mixing machine tender cork gasket who suggested emergent hemodialysis. SUBJ 07/09: Patient had emergent hemodialysis yesterday getting hemodialysis again today. Calcium was low and was replaced. When initially rounded patient was AAO 3. I was called back to the room as the patient had developed tonic- clonic seizure activity was lasted for 1 month but resolved without Ativan. Post seizure patient was in postictal state somnolent. I will load him with 1 g of fosphenytoin followed by 100 mg every 8 hours. Check EEG Ativan 1 mg every 2 hours as needed for seizures. Neurology consult placed 07/10: PD today. endorses itching and ordered benadryl 12.5mg po q6h prn for this. denies other complaints. ROS otherwise negative. Objective Vital Signs Date Time Temp Pulse Resp B/P (MAP) Pulse Ox O2 Delivery O2 Flow Rate FiO2 07/10/17 18:00 86 07/10/17 16:00 98.4 35 99/68 (78) 98 07/10/17 07:00 Room Air Intake and Output 07/10/17 07/10/17 07/11/17 08:00 16:00 00:00 Intake Total 300 ml 1100 ml 720 ml Output Total 200 ml 550 ml Balance 100 ml 1100 ml 170 ml Result Diagram: 07/10/17 1033 07/10/17 1033 Imaging Last 24 hours Impressions Pelvis X-Ray 07/08/17 1550 Signed Impressions: Service Date/Time: Saturday, July 08, 2017 16:15 - CONCLUSION: No acute disease. Ezio Caro MD Chest X-Ray 07/08/17 1559 Signed Impressions: Service Date/Time: Saturday, July 08, 2017 16:12 - CONCLUSION: No acute disease. Anatoliy García MD FACR Objective Remarks GENERAL: This is a well-nourished, petite patient, lying in bed, no acute distress. SKIN: No rashes, ecchymoses or lesions. Cool and dry. Permacath in place. HEAD: Atraumatic. Normocephalic. EYES: Pupils equal round and reactive. Extraocular motions intact. No scleral icterus. No injection or drainage. ENT: Nose without bleeding, purulent drainage or septal hematoma. Airway patent. NECK: Trachea midline. No JVD. . CARDIOVASCULAR: Regular rate and rhythm RESPIRATORY: equal chest rise. room air. GASTROINTESTINAL: Abdomen soft, non-tender, nondistended. PDcath in place with dry dirty dressing. MUSCULOSKELETAL: Left upper extremity partial amputation and bilateral BKA with intact stumps NEUROLOGICAL: awake, follows commands. A/P Assessment and Plan Uncontrolled seizures Postictal state Seizure disorder -Loading dose of fosphenytoin 1 g and scheduled dose of 100 mg IV every 8 hours -Check daily Dilantin level -Neurology consult, EEG -Ativan 1 mg IV every 8 hours as needed for seizures -Continue Keppra per home dosing -Seizure precaution Pruritis - benadryl 12.5mg po q6h prn Hyperkalemia- resolved. hypokalemia - replace during PD. ESRD -HD per nephrology HIV -Continue home meds DVT GI prophylaxis -Subcu heparin -Pepcid overall impression: clinically improving. stable for transfer to floor. Bari Hartley MD Jul 10, 2017 20:04
[2017-07-10] MEDS: PHENYTOIN SODIUM 100 MG CAP PO SCH (21:06)
[2017-07-11] MEDS: HEPARIN SODIUM - SQ 10,000 UNITS/ML VIAL SQ SCH ×2 (00:10→09:39)
[2017-07-11 03:00] VITALS: BP 115/80; PULSE 88; RESP 16; TEMP 97.3; O2SAT 99
[2017-07-11] MEDS: CHLORHEXIDINE GLUCONATE 2 % 1 PACK (2 CLOTHS) TOP SCH (03:35)
[2017-07-11] MEDS: PHENYTOIN SODIUM 100 MG CAP PO SCH ×2 (06:10→12:49)
[2017-07-11] MEDS: diphenhydrAMINE HCL 25 MG CAP PO PRN ×3 (06:12→13:03)
[2017-07-11 08:29] VITALS: BP 106/71; PULSE 88; RESP 20; TEMP 97.9; O2SAT 95
[2017-07-11] MEDS: FOSAMPRENAVIR CALCIUM PO SCH (09:35)
[2017-07-11] MEDS: RITONAVIR 100 MG TAB PO SCH (09:35)
[2017-07-11] MEDS: ABACAVIR SULFATE 300 MG TAB PO SCH (09:35)
[2017-07-11] MEDS: DOCUSATE SODIUM 50 MG/SENNA 8.6 MG TAB PO SCH (09:36)
[2017-07-11] MEDS: CALCIUM ACETATE 667 MG CAP PO SCH ×2 (09:36→12:49)
[2017-07-11] MEDS: FAMOTIDINE 20 MG TAB PO SCH (09:36)
[2017-07-11] MEDS: levETIRAcetam 500 MG TAB PO SCH ×2 (09:36→12:49)
[2017-07-11] MEDS: SODIUM CHLORIDE 0.9% FLUSH 10 ML FLUSH IV FLUSH SCH (09:42)
--- NOTE | 2017-07-11 10:41 | HHI.NPPN ---
Subjective General Problems: Anemia, Hyperparathyroidism Renal Failure: End Stage Renal Disease History of Present Illness This 26-year-old male with a past medical history of HIV disease, seizure disorder, bilateral below knee amputation, chronic anemia, end-stage renal disease on peritoneal dialysis, came to the hospital with seizure. Nephrology was called to see the patient because of high potassium and being on dialysis. The patient has been on peritoneal dialysis for almost 5-6 months. He was on hemodialysis before. He was admitted before with high potassium in March, but it was not very high. He usually runs low potassium since he has been on peritoneal dialysis. The patient claims to be compliant with his dialysis treatment. He has a history of seizure and he was taking Keppra and it was not clear that he was taking it regularly. He is saying that he is compliant with his medication. When he came in here this morning the potassium was 7.6. The patient had a reported seizure at home. Now he is fully awake, alert and he denies any shortness of breath, has mild abdominal discomfort around the PD catheter site. The patient was given insulin , D50, calcium and Kayexalate for hyperkalemia and also he has low calcium level. Additional Remarks To continue PD nightly. Replace potassium. Review of Systems Skin Skin Remarks Pruritus Objective Data Data 07/11/17 07/12/17 19:00 07:00 Output Total 622 ml Balance -622 ml Peritoneal Fluid 622 ml Vital Signs Date Time Temp Pulse Resp B/P (MAP) Pulse Ox O2 Delivery O2 Flow Rate FiO2 07/11/17 08:29 97.9 88 20 106/71 (83) 95 07/11/17 03:00 97.3 88 16 115/80 (92) 99 07/10/17 23:30 100 Room Air 07/10/17 22:30 98.0 78 16 113/84 (94) 98 07/10/17 20:00 100 Room Air 07/10/17 20:00 98.0 87 22 98/65 (76) 100 07/10/17 20:00 87 07/10/17 18:00 86 07/10/17 16:00 98.4 80 35 99/68 (78) 98 07/10/17 16:00 80 07/10/17 14:00 82 07/10/17 12:00 98.3 84 22 95/58 (70) 100 07/10/17 12:00 84 -: 07/10/17 1033 07/10/17 1033 Tubes & Lines: Vas-Cath Tubes & Lines Comment right femoral Physical Exam General Appearance: No Acute Distress, Comfortable Pulmonary Resp Exam: Breath Sounds Equal, No Distress Cardiology CV Exam: Regular, Normal Sinus Rhythm Gastrointestinal/Abdomen GI Exam: Non-Tender, Bowel Sounds Present Genitourinary Exam: Flank Non-Tender Integumentary Skin Exam: Clear, Warm Neurologic Neuro Exam: Awake Assessment/Plan Assessment Summary: [place] Hyperparathyroid, End Stage Renal Disease Electrolyte Assessment: Hypocalcemia, Hypokalemia Problem List: (1) ESRD (end stage renal disease) on dialysis ICD Codes: N18.6 - End stage renal disease; Z99.2 - Dependence on renal dialysis Plan: ESRD on PD at home. Vas cath in right groin and patient. Labs pending today but labs repeated yesterday afternoon with normal potassium Plan Continue Peritoneal dialysis nightly Continue phoslo Follow BMP (2) Breakthrough seizure ICD Codes: G40.919 - Epilepsy, unspecified, intractable, without status epilepticus Status: Acute Plan: continue current treatment (3) Hypocalcemia ICD Codes: E83.51 - Hypocalcemia Status: Acute Plan: Resolved (4) HIV (human immunodeficiency virus infection) ICD Codes: Z21 - Asymptomatic human immunodeficiency virus [HIV] infection status Status: Chronic Plan: Continue home medications (5) Anemia ICD Codes: D64.9 - Anemia Status: Acute Plan: Monitoring, Epogen weekly. Doug Ashton MD Jul 11, 2017 10:41
[2017-07-11] MEDS ORDERED: POTASSIUM CHLORIDE 10 MEQ CONTROLLED RELEASE TAB PO ONE (10:45)
--- NOTE | 2017-07-11 11:17 | HHI.PR ---
Subjective Remarks Follow-up recurrent seizure July 11, 2017-patient seen and examined, no reported seizure episode 48 hours. No acute event overnight. Currently afebrile. Potassium 3.2. States he does not have a PCP or HIV specialist Objective Vitals Vital Signs Date Time Temp Pulse Resp B/P (MAP) Pulse Ox O2 Delivery O2 Flow Rate FiO2 07/11/17 10:48 Room Air 07/11/17 08:29 97.9 88 20 106/71 (83) 95 07/11/17 03:00 97.3 88 16 115/80 (92) 99 07/10/17 23:30 100 Room Air 07/10/17 22:30 98.0 78 16 113/84 (94) 98 07/10/17 20:00 100 Room Air 07/10/17 20:00 98.0 87 22 98/65 (76) 100 07/10/17 20:00 87 07/10/17 18:00 86 07/10/17 16:00 98.4 80 35 99/68 (78) 98 07/10/17 16:00 80 07/10/17 14:00 82 07/10/17 12:00 98.3 84 22 95/58 (70) 100 07/10/17 12:00 84 I/O 07/10/17 07/10/17 07/10/17 07/11/17 07/11/17 07/11/17 07:00 15:00 23:00 07:00 15:00 23:00 Intake Total 1450 ml 1100 ml 720 ml 250 ml Output Total 200 ml 750 ml 0 ml 622 ml Balance 1250 ml 1100 ml -30 ml 250 ml -622 ml Intake Oral 300 ml 720 ml 250 ml IV Total 1150 ml 1100 ml Output Urine Total 200 ml 750 ml 0 ml Peritoneal Fluid 622 ml # Bowel Movements 2 1 0 Result Diagram: 07/10/17 1033 07/10/17 1033 Imaging Last Impressions Brain MRI 07/10/17 0000 Signed Impressions: Service Date/Time: Monday, July 10, 2017 13:57 - CONCLUSION: Negative exam. Bruce Romo MD Pelvis X-Ray 07/08/17 1559 Signed Impressions: Service Date/Time: Saturday, July 08, 2017 16:15 - CONCLUSION: No acute disease. Ezio Caro MD Chest X-Ray 07/08/17 1559 Signed Impressions: Service Date/Time: Saturday, July 08, 2017 16:12 - CONCLUSION: No acute disease. Anatoliy García MD FACR Objective Remarks GENERAL: NAD SKIN: Warm and dry. HEAD: Normocephalic. EYES: No scleral icterus. No injection or drainage. NECK: Supple, trachea midline. No JVD or lymphadenopathy. CARDIOVASCULAR: Regular rate and rhythm without murmurs, gallops, or rubs. RESPIRATORY: Breath sounds equal bilaterally. No accessory muscle use. GASTROINTESTINAL: Abdomen soft, non-tender, nondistended. MUSCULOSKELETAL: Left upper extremity partial amputation and bilateral BKA with intact stumps. BACK: Nontender without obvious deformity. No CVA tenderness. Procedures None A/P Problem List: (1) Recurrent seizures ICD Code: G40.909 - Epilepsy, unspecified, not intractable, without status epilepticus (2) Breakthrough seizure ICD Code: G40.919 - Epilepsy, unspecified, intractable, without status epilepticus Status: Acute (3) HIV (human immunodeficiency virus infection) ICD Code: Z21 - Asymptomatic human immunodeficiency virus [HIV] infection status Status: Chronic (4) ESRD (end stage renal disease) on dialysis ICD Code: N18.6 - End stage renal disease; Z99.2 - Dependence on renal dialysis Assessment and Plan 26-year-old man with Recurrent seizure Uncontrolled seizures Postictal state-resolved Seizure disorder -Currently on Dilantin 100 mg 3 times daily and Keppra 500 mg 3 times daily. Appreciate input from neurology - EEG noted -Ativan 1 mg IV every 8 hours as needed for seizures -Seizure precaution Pruritis - benadryl 12.5mg po q6h prn Hyperkalemia- resolved. hypokalemia - replace during PD. ESRD -HD per nephrology HIV -Continue home meds DVT GI prophylaxis -Subcu heparin -Jeffrey Kraft MD Jul 11, 2017 11:17
--- NOTE | 2017-07-11 11:19 | HHI.FF ---
Face to Face Verification Diagnosis: (1) Seizure disorder (2) Human immunodeficiency virus (HIV) positive (3) Recurrent seizures (4) ESRD (end stage renal disease) on dialysis Physical Therapy Order: Evaluate and Treat Home Health Nursing Order: Signs/symptoms of disease process Medication education-adverse effect I have seen patient Abhishek Yu on 07/11/17. My clinical findings support the need for the requested home health care services because: Patient has SOB Deconditioned w/ increased weakness I certify that my clinical findings support that this patient is homebound because: Unsteady gait/balance Poor cardiac reserve Jeffrey Harrison MD Jul 11, 2017 11:19
[2017-07-11] MEDS ORDERED: LEVE500 PO (11:24)
[2017-07-11] MEDS ORDERED: CALC667C PO (11:24)
[2017-07-11] MEDS ORDERED: DILA100C PO (11:24)
--- NOTE | 2017-07-11 11:34 | HHI.DS ---
Discharge Summary Admission Date Jul 08, 2017 at 21:07 Discharge Date: Jul 11, 2017 Admitting Diagnosis Hyperkalemia, hypocalcemia, ESRD, breakthrough seizure (1) Recurrent seizures ICD Code: G40.909 - Epilepsy, unspecified, not intractable, without status epilepticus (2) Breakthrough seizure ICD Code: G40.919 - Epilepsy, unspecified, intractable, without status epilepticus Status: Acute (3) HIV (human immunodeficiency virus infection) ICD Code: Z21 - Asymptomatic human immunodeficiency virus [HIV] infection status Status: Chronic (4) ESRD (end stage renal disease) on dialysis ICD Code: N18.6 - End stage renal disease; Z99.2 - Dependence on renal dialysis Procedures None Brief History - From Admission 26-year-old male with history of seizure disorder on Keppra, ESRD with home peritoneal dialysis, left forearm amputation, bilateral BKA's, presents for evaluation of seizure. Patient reports compliance with Keppra as well as his peritoneal dialysis. Labs reviewed and are remarkable for potassium 7.6, bicarb 18.9, BUN 60, creatinine 6.97, GFR 11, calcium 6.5. Patient denies having had fevers. He does have slight pain around his peritoneal dialysis catheter. States his last diasylate fluid was clear. There are no peritoneal signs on his abdominal exam. He was written for D50, insulin, calcium, and Kayexalate to treat his hyperkalemia and hypocalcemia. The lab results were discussed with patient's chassis engineer who suggested emergent hemodialysis. CBC/BMP: 07/10/17 1033 07/10/17 1033 Significant Findings Laboratory Tests Test 07/08/17 16:40 07/08/17 18:10 07/08/17 21:13 07/08/17 22:25 Hemoglobin 11.7 GM/DL (13.0-17.0) Hematocrit 36.7 % (39.0-51.0) Mean Corpuscular Hemoglobin 25.7 PG (27.0-34.0) Mean Corpuscular Hemoglobin Concent 31.9 % (32.0-36.0) Monocytes (%) (Auto) 8.1 % (0.0-8.0) Myelocytes 1 % (0-0) Nucleated Red Blood Cells 2 /100 WBC (0-0) Ovalocytes 1+ (NORMAL) Blood Urea Nitrogen 60 MG/DL (7-18) Creatinine 6.97 MG/DL (0.60-1.30) Random Glucose 62 MG/DL (74-106) Total Protein 8.4 GM/DL (6.4-8.2) Calcium Level 6.5 MG/DL (8.5-10.1) Phosphorus Level 8.5 MG/DL (2.5-4.9) 8.2 MG/DL (2.5-4.9) Potassium Level 7.6 MEQ/L (3.5-5.1) Carbon Dioxide Level 18.9 MEQ/L (21.0-32.0) Estimat Glomerular Filtration Rate 11 ML/MIN (>89) Protein Corrected Calcium 6.0 MG/DL (8.5-10.1) Activated Partial Thromboplast Time 21.9 SEC (24.3-30.1) Test 07/08/17 23:03 07/09/17 03:48 07/09/17 15:24 07/10/17 10:33 Red Blood Count 4.21 MIL/MM3 (4.50-5.90) 4.14 MIL/MM3 (4.50-5.90) Hemoglobin 10.9 GM/DL (13.0-17.0) 10.7 GM/DL (13.0-17.0) Hematocrit 33.2 % (39.0-51.0) 33.2 % (39.0-51.0) Mean Corpuscular Volume 78.9 FL (80.0-100.0) Mean Corpuscular Hemoglobin 25.9 PG (27.0-34.0) 25.7 PG (27.0-34.0) Monocytes (%) (Auto) 11.0 % (0.0-8.0) 13.3 % (0.0-8.0) Nucleated Red Blood Cells 9 /100 WBC (0-0) 13 /100 WBC (0-0) Target Cells 2+ (NORMAL) 3+ (NORMAL) Ovalocytes 1+ (NORMAL) 1+ (NORMAL) Blood Urea Nitrogen 32 MG/DL (7-18) 19 MG/DL (7-18) Creatinine 4.63 MG/DL (0.60-1.30) 3.79 MG/DL (0.60-1.30) 5.01 MG/DL (0.60-1.30) Albumin 3.1 GM/DL (3.4-5.0) 2.9 GM/DL (3.4-5.0) 2.8 GM/DL (3.4-5.0) Calcium Level 6.5 MG/DL (8.5-10.1) 7.3 MG/DL (8.5-10.1) Phosphorus Level 5.9 MG/DL (2.5-4.9) Alkaline Phosphatase 157 U/L (45-117) 144 U/L (45-117) 127 U/L (45-117) Aspartate Amino Transf (AST/SGOT) 71 U/L (15-37) 50 U/L (15-37) Alanine Aminotransferase (ALT/SGPT) 181 U/L (12-78) 147 U/L (12-78) 104 U/L (12-78) Potassium Level 2.8 MEQ/L (3.5-5.1) 3.2 MEQ/L (3.5-5.1) Estimat Glomerular Filtration Rate 18 ML/MIN (>89) 23 ML/MIN (>89) 17 ML/MIN (>89) Protein Corrected Calcium 6.3 MG/DL (8.5-10.1) 7.4 MG/DL (8.5-10.1) Random Glucose 122 MG/DL (74-106) Lymphocytes (%) (Auto) 44.5 % (9.0-44.0) Eosinophils (%) (Auto) 5.8 % (0.0-4.0) Lymphocytes % 54 % (9-44) Eosinophils % 9 % (0-4) Platelet Morphology Comment ENLARGED (NORMAL) Chloride Level 95 MEQ/L (98-107) Carbon Dioxide Level 36.9 MEQ/L (21.0-32.0) Phenytoin (Dilantin) Level 21.1 MCG/ML (10.0-20.0) Test 07/11/17 06:25 Imaging Last Impressions Brain MRI 07/10/17 0000 Signed Impressions: Service Date/Time: Monday, July 10, 2017 13:57 - CONCLUSION: Negative exam. Bruce Romo MD Pelvis X-Ray 07/08/17 5868 Signed Impressions: Service Date/Time: Saturday, July 08, 2017 16:15 - CONCLUSION: No acute disease. Ezio Caro MD Chest X-Ray 07/08/17 1550 Signed Impressions: Service Date/Time: Saturday, July 08, 2017 16:12 - CONCLUSION: No acute disease. Anatoliy García MD FACR PE at Discharge GENERAL: NAD SKIN: Warm and dry. HEAD: Normocephalic. EYES: No scleral icterus. No injection or drainage. NECK: Supple, trachea midline. No JVD or lymphadenopathy. CARDIOVASCULAR: Regular rate and rhythm without murmurs, gallops, or rubs. RESPIRATORY: Breath sounds equal bilaterally. No accessory muscle use. GASTROINTESTINAL: Abdomen soft, non-tender, nondistended. MUSCULOSKELETAL: Left upper extremity partial amputation and bilateral BKA with intact stumps. BACK: Nontender without obvious deformity. No CVA tenderness. Hospital Course While in hospital, patient was treated for: Recurrent seizure Uncontrolled seizures Postictal state-resolved Seizure disorder -Treated initially with IV AEDs then switched to Dilantin 100 mg 3 times daily and Keppra 500 mg 3 times daily by Neurology - EEG noted -Ativan 1 mg IV every 8 hours as needed for seizures -Seizure precaution Pruritis - benadryl 12.5mg po q6h prn was provided Hyperkalemia- resolved. hypokalemia - replace during PD. ESRD -PD was continued, Nephrology was consulted HIV -His home meds HAART therapy was resumed -Patient was advised to establish care with HIV specialist DVT GI prophylaxis -Subcu heparin -Pepcid Pt Condition on Discharge: Good Discharge Disposition: Disch w/ Home Health Serv Discharge Time: > 30 minutes Discharge Instructions DIET: Follow Instructions for: As Tolerated, No Restrictions Activities you can perform: Regular-No Restrictions Follow up Referrals: Nephrology PCP Follow-up - 1 Week New Medications: Calcium Acetate (Phosphate Bin (Calcium Acetate) 667 Mg Cap 1334 MG PO TID for Electrolyte Replacement, #90 CAP 3 Refills Levetiracetam (Keppra) 500 Mg Tab 500 MG PO TID for Control Seizures, #90 TAB 3 Refills Phenytoin Extended (Dilantin) 100 Mg Cap 100 MG PO Q8HR for Control Seizures, #90 CAP 3 Refills Continued Medications: Abacavir (Ziagen) 300 Mg Tab 300 MG PO BID for Mgmt Viral Infection, #60 TAB 5 Refills Hazardous agent; use appropriate precautions for handling & disposal. Famotidine (Famotidine) 20 Mg Tab 20 MG PO HS for gerd, #30 TAB Fosamprenavir (Lexiva) 700 Mg Tab 1 TAB PO BID for Infection, #60 TAB 5 Refills Lamivudine (Epivir) 150 Mg Tab 150 MG PO DAILY for Mgmt Viral Infection, #9 TAB 5 Refills *Fill this 5 day prescription first and begin taking Epivir 12 hours after the first dose received in the Emergency Department as prescribed.* Ritonavir (Norvir) 100 Mg Cap 100 MG PO BID for Mgmt Viral Infection, #180 CAP 5 Refills Discontinued Medications: Calcium Acetate (Phosphate Bin (Calcium Acetate) 667 Mg Cap 1334 MG PO TID, #120 CAP 0 Refills Levetiracetam (Keppra) 500 Mg Tab 500 MG PO BID for Control Seizures, #60 TAB 0 Refills Ondansetron Odt (Zofran Odt) 4 Mg Tab 4 MG SL Q6HR PRN for Nausea/Vomiting, #15 TAB 0 Refills Jeffrey Harrison MD Jul 11, 2017 11:34
[2017-07-11 12:35] VITALS: BP 104/69; PULSE 95; RESP 20; TEMP 98.8; O2SAT 96
== END 2017-07-11 18:55 | disposition home health service (06) | DRG 640 ==
LOC: NEPC 15:50 → NEDA 21:07 → N03B 22:55 → N05B 07-10 22:18
PROVIDERS: ADMIT Hospitalist; ATTEND Hospitalist
PROC: 5A1D70Z Performance of Urinary Filtration, Intermittent, Less than 6 Hours Per Day (ICD-10-PCS; principal; 2017-07-08)
PROC: 06HM33Z Insertion of Infusion Device into Right Femoral Vein, Percutaneous Approach (ICD-10-PCS; 2017-07-09)
PROC: B54BZZA Ultrasonography of Right Lower Extremity Veins, Guidance (ICD-10-PCS; 2017-07-09)
DX: E87.5 Hyperkalemia (principal); B20 Human immunodeficiency virus [HIV] disease; N18.6 End stage renal disease; G40.919 Epilepsy, unspecified, intractable, without status epilepticus; N25.81 Secondary hyperparathyroidism of renal origin; Z99.2 Dependence on renal dialysis; E83.51 Hypocalcemia; L29.9 Pruritus, unspecified; E87.6 Hypokalemia; F12.90 Cannabis use, unspecified, uncomplicated; D64.9 Anemia, unspecified; Z89.512 Acquired absence of left leg below knee; Z89.511 Acquired absence of right leg below knee; Z89.212 Acquired absence of left upper limb below elbow; Z85.72 Personal history of non-Hodgkin lymphomas; Z90.81 Acquired absence of spleen
CPT/HCPCS: 70551; 71045; 72170; 76937; 80048; 80053; 80074; 80185; 83735; 84100; 84155; 84443; 85007; 85027; 85610; 85730; 87641; 90935; 93005; 95819; 96374; J0610; J1580; J1644; J1815; J7070; Q2009

== ENCOUNTER 2017-08-09 17:50 | Emergency (ER) | payer MEDICARE, OTHER ==
[~2017-08-09] VITALS: Ht 162.6 cm; Wt 47.0 kg
[~2017-08-09 17:50] MED LIST changes: +DILA100C PO; -ZOFR4TAB3 SL
[2017-08-09 18:14] VITALS: BP 124/79; PULSE 93; RESP 18; TEMP 97.6; O2SAT 97
--- NOTE | 2017-08-09 18:33 | PD ---
HPI Chief Complaint: Headache Time Seen by Provider: 18:32 Travel History International Travel<30 days: No Contact w/Intl Traveler<30days: No Traveled to known affect area: No History of Present Illness HPI 26-year-old male came to the emergency room with history of headache, nausea and vomiting. Patient has history of end-stage kidney disease and is under peritoneal dialysis every night. Patient says his last dialysis was last night. His headache and vomiting started this morning. He has vomited twice but has been nauseous. There was a substantial quantity of green emesis in the emesis bag. Patient said he was not feeling well. Vital signs are relatively stable. Patient denies of any abdominal pain, fever or chills. He said that he does not get headaches usually. Headache is located on the frontal aspect. No radiation. No neck stiffness or pain. He looks like he was in moderate distress [facility] Past Medical History Narrative Medical List of his past medical, surgical, social and family history is reviewed from the nursing note Autoimmune Disease: Yes (HIV) Blood Disorders: Yes (bone marrow transplant) Anxiety: No Depression: No Cancer: Yes (lymphoma age 10-11) Cardiovascular Problems: Yes (HTN) Chemotherapy: Yes Cerebrovascular Accident: No Diabetes: No Dialysis: Yes (peritoneal) Diminished Hearing: No Endocrine: No Gastrointestinal Disorders: No Genitourinary: Yes (PERITONEAL DIALYSIS) Headaches: Yes Hepatitis: No Hiatal Hernia: No Hypertension: Yes Immune Disorder: Yes (HIV) Implanted Vascular Access Dvce: Yes Kidney Stones: No Musculoskeletal: Yes (bilateral BKA/prosthesis) Neurologic: Yes Psychiatric: No Reproductive: No Respiratory: No Immunizations Current: Yes Migraines: No Radiation Therapy: Yes Renal Failure: Yes (ESRD) Seizures: Yes Thyroid Disease: No Past Surgical History Abdominal Surgery: Yes (PD catheter and revision) AICD: No Arteriovenous Shunt: No Body Medical Devices: HD permacath, PD cath Cardiac Surgery: No Ear Surgery: No Endocrine Surgery: No Eye Surgery: No Genitourinary Surgery: No Gynecologic Surgery: No Insulin Pump: No Joint Replacement: No Neurologic Surgery: No Oral Surgery: No Pacemaker: No Thoracic Surgery: No Other Surgery: Yes (BILATERAL LOWER LEG AND LEFT ARM AMPUTATION,SPLENECTOMY) Social History Alcohol Use: Yes (OCC) Tobacco Use: No Substance Use: Yes (marijuana use) Allergies-Medications (Allergen,Severity, Reaction): Coded Allergies: amoxicillin (Verified Allergy, Severe, rash all over, 07/08/17) clindamycin (Verified Allergy, Severe, Desquamating rash, 07/08/17) penicillin G (Verified Allergy, Severe, Anaphylaxis, 07/08/17) vancomycin (Verified Allergy, Severe, Desqumating rash, 07/08/17) Comments List of his allergies reviewed from the nursing note Reported Meds & Prescriptions Reported Meds & Active Scripts Active Sodium Bicarbonate 650 Mg Tab 650 Mg PO BIDPC Macrobid (Nitrofurantoin Monoh/Nitrofur Macro) 100 Mg Cap 100 Mg PO BID Reglan (Metoclopramide HCl) 5 Mg Tab 5 Mg PO TIDAC Calcium Acetate (Calcium Acetate (Phosphate Bin) 667 Mg Cap 1,334 Mg PO TID Keppra (Levetiracetam) 500 Mg Tab 500 Mg PO TID Dilantin (Phenytoin Extended) 100 Mg Cap 100 Mg PO Q8HR Norvir (Ritonavir) 100 Mg Cap 100 Mg PO BID Epivir (Lamivudine) 150 Mg Tab 150 Mg PO DAILY *Fill this 5 day prescription first and begin taking Epivir 12 hours after the first dose received in the Emergency Department as prescribed.* Lexiva (Fosamprenavir Calcium) 700 Mg Tab 1 Tab PO BID Ziagen (Abacavir Sulfate) 300 Mg Tab 300 Mg PO BID Hazardous agent; use appropriate precautions for handling & disposal. Famotidine 20 Mg Tab 20 Mg PO HS Narrative Medication List of his home medications reviewed from the nursing note. Review of Systems Except as stated in HPI: all other systems reviewed are Neg Gastrointestinal: Positive: Nausea, Vomiting Neurologic: Positive: Headache Physical Exam Narrative GENERAL: Awake, alert, moderate distress SKIN: Focused skin assessment warm/dry. HEAD: Atraumatic. Normocephalic. EYES: Pupils equal and round. No scleral icterus. No injection or drainage. ENT: No nasal bleeding or discharge. Mucous membranes pink and moist. NECK: Trachea midline. No JVD. Neck supple, no meningismus CARDIOVASCULAR: Regular rate and rhythm. No murmur appreciated. RESPIRATORY: No accessory muscle use. Clear to auscultation. Breath sounds equal bilaterally. GASTROINTESTINAL: Abdomen soft, non-tender, nondistended. Hepatic and splenic margins not palpable. MUSCULOSKELETAL: No obvious deformities. No clubbing. No cyanosis. No edema. NEUROLOGICAL: Awake and alert. No obvious cranial nerve deficits. Motor grossly within normal limits. Normal speech. PSYCHIATRIC: Appropriate mood and affect; insight and judgment normal. Data Data Last Documented VS Vital Signs Date Time Temp Pulse Resp B/P (MAP) Pulse Ox O2 Delivery O2 Flow Rate FiO2 08/09/17 18:14 97.6 93 18 124/79 (94) 97 Orders Orders Isolation 08,20 (08/09/17 18:18) Complete Blood Count With Diff (08/09/17 19:00) Comprehensive Metabolic Panel (08/09/17 19:00) Lipase (08/09/17 19:00) Ct Abd/Pel W/O Iv Contrast (08/09/17 19:00) Iv Access Insert/Monitor (08/09/17:00) Ecg Monitoring (08/09/17:00) Oximetry (08/09/17 19:00) Sodium Chlor 0.9% 1000 Ml Inj (Ns 1000 M (08/09/17 19:00) Sodium Chloride 0.9% Flush (Ns Flush) (08/09/17 19:00) Metoclopramide Inj (Reglan Inj) (08/09/17 19:00) Ct Brain W/O Iv Contrast(Rout) (08/09/17 ) Urinalysis - C+S If Indicated (08/09/17 19:02) Urine Culture (08/09/17 20:00) Calcium Gluconate Inj (Calcium Gluconate (08/09/17 21:15) Ed Discharge Order (08/09/17 21:30) Nitrofurantoin Monohyd Macrocr (Macrobid (08/09/17 21:45) Sodium Bicarbonate 8.4% Inj (Sodium Bica (08/09/17 22:00) Labs Laboratory Tests Test 08/09/17 20:00 White Blood Count 10.8 TH/MM3 Red Blood Count 4.25 MIL/MM3 Hemoglobin 11.2 GM/DL Hematocrit 35.3 % Mean Corpuscular Volume 82.9 FL Mean Corpuscular Hemoglobin 26.3 PG Mean Corpuscular Hemoglobin Concent 31.7 % Red Cell Distribution Width 18.4 % Platelet Count 340 TH/MM3 Mean Platelet Volume 9.4 FL Neutrophils (%) (Auto) 75.1 % Lymphocytes (%) (Auto) 15.0 % Monocytes (%) (Auto) 8.8 % Eosinophils (%) (Auto) 0.4 % Basophils (%) (Auto) 0.7 % Neutrophils # (Auto) 8.1 TH/MM3 Lymphocytes # (Auto) 1.6 TH/MM3 Monocytes # (Auto) 0.9 TH/MM3 Eosinophils # (Auto) 0.0 TH/MM3 Basophils # (Auto) 0.1 TH/MM3 CBC Comment AUTO DIFF Differential Comment AUTO DIFF CONFIRMED Target Cells 1+ Ovalocytes 1+ Ohara-Spurgeon Bodies PRESENT Urine Color LIGHT-YELLOW Urine Turbidity CLEAR Urine pH 5.5 Urine Specific [place] 1.010 Urine Protein 100 mg/dL Urine Glucose (UA) NEG mg/dL Urine Ketones 10 mg/dL Urine Occult Blood SMALL Urine Nitrite NEG Urine Bilirubin NEG Urine Urobilinogen LESS THAN 2.0 MG/DL Urine Leukocyte Esterase NEG Urine RBC 1 /hpf Urine WBC 2 /hpf Urine Squamous Epithelial Cells 1 /hpf Urine Bacteria MOD /hpf Urine Mucus FEW /lpf Microscopic Urinalysis Comment CULTURE INDICATED Blood Urea Nitrogen 135 MG/DL Creatinine 9.45 MG/DL Random Glucose 64 MG/DL Total Protein 9.3 GM/DL Albumin 3.7 GM/DL Calcium Level 7.3 MG/DL Alkaline Phosphatase 136 U/L Aspartate Amino Transf (AST/SGOT) 36 U/L Alanine Aminotransferase (ALT/SGPT) 51 U/L Total Bilirubin 0.4 MG/DL Sodium Level 136 MEQ/L Potassium Level 4.6 MEQ/L Chloride Level 101 MEQ/L Carbon Dioxide Level 7.3 MEQ/L Anion Gap 28 MEQ/L Estimat Glomerular Filtration Rate 8 ML/MIN Protein Corrected Calcium MG/DL Lipase 228 U/L [facility] Medical Decision Making Medical Screen Exam Complete: Yes Emergency Medical Condition: Yes Medical Record Reviewed: Yes Differential Diagnosis Headache NOS, intracranial bleed, electrolyte abnormality, small bowel obstruction Narrative Course 9:[address] of his brain and abdomen and pelvis are essentially negative for any acute findings. Patient was given IV fluid bolus and IV Reglan and he has responded well to it. I just reassessed him and he was sleeping comfortably. I woke him up and he said he was feeling better. He has not had any more vomiting episodes. Blood test results are back and chemistry is notable for hypoglycemia with a sugar of 64. His calcium is low at 7.2 corrected. I have ordered IV calcium gluconate. Patient will get some orange juice to drink since he feels better and will be able to tolerate p.o. I will discharge him. UA was suggestive of possible UTI. Have given him a dose of Macrobid and prescription to go home with. 10 PM case was discussed with Dr. Solis who was on-call for nephrology and also happens to be patient's foley artist. I discussed with him regarding patient's extremely low bicarb and increased anion gap. This is most probably from renal acidosis. He recommended to give the patient 1 ampule of sodium bicarb in the emergency room and discharge him home with 650 mg p.o. twice daily sodium bicarb. His office will call the patient this week and take it from there. Procedures EKG Prior to Arrival: No Diagnosis Primary Impression: Headache Qualified Codes: R51 - Headache Additional Impressions: Vomiting Qualified Codes: R11.2 - Nausea with vomiting, unspecified Hypoglycemia End stage renal disease Dependence on peritoneal dialysis UTI (urinary tract infection) Qualified Codes: N39.0 - Urinary tract infection, site not specified Metabolic acidosis Referrals: Primary Care Physician Additional Instructions: Take the nausea medication as needed. Continue with hemodialysis. Follow-up with your kidney doctor. Return to the ER if condition worsens or any other new concerns Med/Other Pt SpecificInfo: Prescription(s) given Scripts Sodium Bicarbonate (Sodium Bicarbonate) 650 Mg Tab 650 MG PO BIDPC, #60 TAB 0 Refills Prov: Patricia Rojas MD 08/09/17 Nitrofurantoin Monohydrate Macrocrystals (Macrobid) 100 Mg Cap 100 MG PO BID for Infection, #20 CAP 0 Refills Prov: Patricia Rojas MD 08/09/17 Metoclopramide (Reglan) 5 Mg Tab 5 MG PO TIDAC, #21 TAB 0 Refills Prov: Patricia Rojas MD 08/09/17 Disposition: DISCHARGE HOME Condition: Stable Patricia Rojas MD August 09, 2017 18:33
[2017-08-09] MEDS ORDERED: METOCLOPRAMIDE HCL 10 MG/2 ML VIAL IV PUSH ONE (19:00)
[2017-08-09] MEDS ORDERED: SODIUM CHLORIDE 0.9% FLUSH 10 ML FLUSH IV FLUSH PRN (19:00)
[2017-08-09] MEDS ORDERED: SODIUM CHLOR 0.9% 1000 ML INJ 1,000 ML IV SCH (19:00)
--- NOTE | 2017-08-09 19:31 | RADRPT ---
EXAM DATE/TIME: 08/09/2017 19:12 [facility] COMPARISON: CT BRAIN W/O CONTRAST, May 20, 2017, 2:38. INDICATIONS : Headache. RADIATION DOSE: 56.35 CTDIvol (mGy) MEDICAL HISTORY : HIV. Hypertension. Seizures.Lymphoma SURGICAL HISTORY : Splenectomy ENCOUNTER: Initial ACUITY: 1 day PAIN SCALE: 6/10 LOCATION: cranial TECHNIQUE: Multiple contiguous axial images were obtained of the head. Using automated exposure control and adj ustment of the mA and/or kV according to patient size, radiation dose was kept as low as reasonably a chievable to obtain optimal diagnostic quality images. DICOM format image data is available electro nically for review and comparison. FINDINGS: CEREBRUM: The ventricles are normal for age. No evidence of midline shift, mass lesion, hemorrhage or acute in farction. No extra-axial fluid collections are seen. POSTERIOR FOSSA: The cerebellum and brainstem are intact. The 4th ventricle is midline. The cerebellopontine angle i s unremarkable. EXTRACRANIAL: The visualized portion of the orbits is intact. SKULL: The calvaria is intact. No evidence of skull fracture. CONCLUSION: Normal examination. Jeffrey Hawthorne MD on August 09, 2017 at 19:28 Board Certified Radiologist. This report was verified electronically.
--- NOTE | 2017-08-09 19:36 | RADRPT ---
EXAM DATE/TIME: 08/09/2017 19:14 [facility] COMPARISON: CT ABDOMEN & PELVIS W CONTRAST, April 03, 2017, 19:47. CT ABDOMEN & PELVIS W/O CONTRAST, February 17, 2017, 21:26. INDICATIONS : Nausea and vomiting. ORAL CONTRAST: No oral contrast ingested. RADIATION DOSE: 6.64 CTDIvol (mGy) MEDICAL HISTORY : HIV. Hypertension. Seizures.Lymphoma SURGICAL HISTORY : Splenectomy ENCOUNTER: Initial ACUITY: 1 day PAIN SCALE: 6/10 LOCATION: abdomen TECHNIQUE: Volumetric scanning of the abdomen and pelvis was performed. Using automated exposure control and ad justment of the mA and/or kV according to patient size, radiation dose was kept as low as reasonably achievable to obtain optimal diagnostic quality images. DICOM format image data is available electro nically for review and comparison. FINDINGS: LOWER LUNGS: The visualized lower lungs are clear. LIVER: Homogeneous density without lesion. There is no dilation of the biliary tree. There are calcified ga llstones. SPLEEN: Surgically absent. PANCREAS: Within normal limits. KIDNEYS: Smal in size and shape. There is no mass, stone, or hydronephrosis. Peritoneal dialysis catheter rig ht lower quadrant. ADRENAL GLANDS: Within normal limits. VASCULAR: There is no aortic aneurysm. BOWEL/MESENTERY: The stomach, small bowel, and colon demonstrate no acute abnormality. There is nondistention of the c olon. There is no free intraperitoneal air or fluid. Normal appendix. The stomach is mildly distended . ABDOMINAL WALL: Within normal limits. RETROPERITONEUM: There is no lymphadenopathy. BLADDER: No wall thickening or mass. REPRODUCTIVE: Within normal limits. INGUINAL: There is no lymphadenopathy or hernia. MUSCULOSKELETAL: Within normal limits for patient age. CONCLUSION: 1. Stomach mildly distended. 2. Atrophic kidneys. 3. Splenectomy. Jeffrey Hawthorne MD on August 09, 2017 at 19:29 Board Certified Radiologist. This report was verified electronically.
[2017-08-09 20:35] LABS: AUTOMATED NEUTROPHIL # 8.1 TH/MM3 (1.8-7.7); BASOPHIL # 0.1 TH/MM3 (0-0.2); BASOPHIL % 0.7 % (0.0-2.0); EOSINOPHIL % 0.4 % (0.0-4.0); HEMATOCRIT 35.3 % (39.0-51.0); HEMOGLOBIN 11.2 GM/DL (13.0-17.0); LYMPHOCYTE # 1.6 TH/MM3 (1.0-4.8); MEAN CELL VOLUME 82.9 FL (80.0-100.0); MEAN CORPUSCULAR HEMOGLOBIN 26.3 PG (27.0-34.0); MEAN CORPUSCULAR HGB CONC 31.7 % (32.0-36.0); MEAN PLATELET VOLUME 9.4 FL (7.0-11.0); MONO % 8.8 % (0.0-8.0); MONOCYTE # 0.9 TH/MM3 (0-0.9); NEUT % 75.1 % (16.0-70.0); PLATELET COUNT 340 TH/MM3 (150-450); RED BLOOD COUNT 4.25 MIL/MM3 (4.50-5.90); RED CELL DISTRIBUTION WIDTH 18.4 % (11.6-17.2); WHITE BLOOD COUNT 10.8 TH/MM3 (4.0-11.0)
[2017-08-09 20:42] LABS: BACTERIA, URINE MOD /hpf; BILIRUBIN, URINE NEG (NEG); BLOOD, URINE SMALL (NEG); GLUCOSE,URINE NEG (NEG); KETONE, URINE 10 mg/dL (NEG); MUCUS URINE FEW /lpf (OCC); NITRITE,URINE NEG (NEG); PH, URINE 5.5 (5.0-8.5); SQUAMOUS EPITHELIAL CELL URINE 1 /hpf (0-5); URINE COLOR LIGHT-YELLOW (YELLW/STRAW); URINE LEUKOCYTE ESTERASE NEG (NEG)
[2017-08-09 20:55] LABS: ALBUMIN 3.7 GM/DL (3.4-5.0); BICARBONATE 7.3 MEQ/L (21.0-32.0); CREATININE 9.45 MG/DL (0.60-1.30)
[2017-08-09 21:01] LABS: TOTAL BILIRUBIN ADULT 0.4 MG/DL (0.2-1.0); TOTAL PROTEIN 9.3 GM/DL (6.4-8.2)
[2017-08-09] MEDS ORDERED: CALCIUM GLUCONATE INJ 1 GM in DEXTROSE 5% IN WATER 100ML INJ 100 ML IV ONE ×2 (21:15)
[2017-08-09] MEDS ORDERED: REGL5TAB PO (21:29)
[2017-08-09 21:32] LABS: HOWELL-JOLLY BODIES PRESENT (NONE SEEN); TARGET CELLS 1+ (NORMAL)
[2017-08-09] MEDS ORDERED: MACR100C2 PO (21:32)
[2017-08-09 21:33] LABS: OVALOCYTES 1+ (NORMAL)
[2017-08-09 21:34] LABS: CALCIUM 7.3 MG/DL (8.5-10.1)
[2017-08-09] MEDS ORDERED: NITROFURANTOIN MONOHYD MACROCR 100 MG CAP PO ONE (21:45)
[2017-08-09] MEDS ORDERED: SODI650T PO (21:47)
[2017-08-09] MEDS ORDERED: SODIUM BICARBONATE 8.4% INJ 50 MEQ/50 ML SYR IV PUSH ONE (22:00)
== END 2017-08-10 08:32 | disposition home or self-care (01) ==
LOC: EDSEX 17:50 → NEPD 17:50
DX: R51 Headache (principal); R11.2 Nausea with vomiting, unspecified; E16.2 Hypoglycemia, unspecified; N18.6 End stage renal disease; N39.0 Urinary tract infection, site not specified; E87.2 Acidosis; B95.2 Enterococcus as the cause of diseases classified elsewhere; I12.0 Hypertensive chronic kidney disease with stage 5 chronic kidney disease or end stage renal disease; G40.909 Epilepsy, unspecified, not intractable, without status epilepticus; Z99.2 Dependence on renal dialysis; Z21 Asymptomatic human immunodeficiency virus [HIV] infection status; Z85.72 Personal history of non-Hodgkin lymphomas
CPT/HCPCS: 70450; 74176; 80053; 81001; 83690; 85025; 87077; 87086; 87186; 96361; 96365; 96375; 99284; J0610; J2765; J7030

== ENCOUNTER 2017-10-10 04:35 | Inpatient (IN) ==
--- NOTE | 2017-10-10 06:12 | XR ---
EXAM DATE: 10/10/2017 6:10 AM EDT AGE/SEX: 26 years / Male INDICATIONS: Fever. CLINICAL DATA: This is the patient's initial encounter. Patient reports that signs and symptoms have been present for 1 day and indicates a pain score of 0/10. MEDICAL/SURGICAL HISTORY: . HIV. Renal failure, chronic, Dialysis . Peg tube, Splenectomy. Pe rm Cath placement, Left lower arm amputation, Bilateral BKA COMPARISON: [facility], CHEST SINGLE AP, 07/08/2017. . FINDINGS: A single AP view of the chest demonstrates the lungs to be symmetrically aerated without evidence of mass, infiltrate or effusion. The cardiomediastinal contours are unremarkable. Osseous structures a re intact. CONCLUSION: No acute disease Electronically signed by: Torito Barajas MD 10/10/2017 6:10 AM EDT
[2017-10-10 06:17] LABS: Baso % (Auto) 0.2 % (0.0-2.0); Eos # (Auto) 0.3 th/mm3 (0.0-0.4); Eos % (Auto) 2.1 % (0.0-4.0); Hematocrit 37.2 % (39.0-51.0); Hemoglobin 11.2 gm/dL (13.0-17.0); Lymph # (Auto) 2.5 th/mm3 (1.0-4.8); Lymph % (Auto) 19.6 % (9.0-44.0); Mean Corpuscular HGB Conc 30.2 % (32.0-36.0); Mean Corpuscular Volume 82.8 fL (80.0-100.0); Mean Platelet Volume 9.6 fL (7.0-11.0); Mono # (Auto) 1.3 th/mm3 (0.0-0.9); Mono % (Auto) 10.4 % (0.0-8.0); Neut # (Auto) 8.7 th/mm3 (1.8-7.7); Neut % (Auto) 67.7 % (16.0-70.0); Platelet Count 361 th/mm3 (150-450); Red Blood Count 4.49 mil/mm3 (4.50-5.90); Red Cell Distribution Width 16.5 % (11.6-17.2); White Blood Count 12.8 th/mm3 (4.0-11.0)
--- NOTE | 2017-10-10 06:19 | ED ---
HPI General Chief complaint: Seizure Stated complaint: Seizure Time Seen by Provider: 10/10/17 05:13 Source: patient and family History of Present Illness HPI narrative: Is a 26-year-old man with a history of lymphoma, HIV, multiple amputations, end-stage renal disease on peritoneal dialysis, seizure disorder, who presents to the emergency department again for increasing seizures over the past 3 days or so. He states he is to have seizures infrequently. He reports 6 grand mal seizure in the past 3 days. She is seen in the emergency department for seizure and fall, negative CT scan, and had a seizure again in the parking lot. He was seen for seizure couple days ago as well. He has end- stage renal disease and does peritoneal dialysis. He has felt a little bit run down. No definite cough cold symptoms. Some subjective fevers chills. He missed a couple nights of peritoneal dialysis about a week or so ago. It was not working afterwards and he had use heparin to flush it. His first dialysis following that was cloudy and a little bit bloody. It has been clear since then. Was last dialyzed 2 nights ago because he has been in the ER for the past 2 nights. Related Data Home Medications Medication Instructions Recorded Confirmed abacavir 300 mg PO Q12H 10/07/17 10/10/17 calcium acetate 667 mg PO TID 10/07/17 10/10/17 famotidine 20 mg PO DAILY 10/07/17 10/10/17 lamivudine 150 mg PO DAILY 10/07/17 10/10/17 levetiracetam [Keppra] 750 mg PO Q12H 10/07/17 10/10/17 ondansetron HCl [Zofran] 4 mg PO TID PRN 10/07/17 10/10/17 ritonavir 100 mg PO BID 10/07/17 10/10/17 Previous Rx's Medication Instructions Recorded lacosamide [Vimpat] 50 mg PO BID #60 tab 10/12/17 Allergies Allergy/AdvReac Type Severity Reaction Status Date / Time amoxicillin Allergy Severe rash all Verified 10/10/17 04:59 over clindamycin Allergy Severe Desquamating Verified 10/10/17 04:59 rash penicillin G Allergy Severe Anaphylaxis Verified 10/10/17 04:59 vancomycin Allergy Severe Desqumating Verified 10/10/17 04:59 rash Review of Systems ROS Unobtainable All other systems reviewed negative except as stated in HPI [facility] Medical History Medical History 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 (Acute) HIV (human immunodeficiency virus infection) (Acute) Kidney failure (Acute) Lymphoma in remission (Acute) Peritoneal dialysis catheter in place (Acute) S/P BKA (below knee amputation) bilateral (Acute) Seizures (Acute) Family History Family History Mother HIV (human immunodeficiency virus infection) Social History Social History Substance History: Active Abuse Second Hand Smoke Exposure: No Smoking Status: Never smoker Tobacco Type: Cigarettes How Often Do You Have a Drink Containing Alcohol: 2 to 4 times a month Recent Travel in [facility] within the Last 8 Weeks: No Recent Out of Country Travel within the Last 8 Weeks: No Immunization History Tetanus Immunization: Unsure Hx Influenza Vaccine This Season: No Exam Narrative Exam Narrative: GENERAL: 26-year-old young man, appears younger than stated age , nontoxic. SKIN: Focused skin assessment warm/dry. HEAD: Atraumatic. Normocephalic. EYES: Pupils equal and round. No scleral icterus. No injection or drainage. ENT: No nasal bleeding or discharge. Mucous membranes pink and moist. NECK: Trachea midline. No JVD. No meningismus. CARDIOVASCULAR: Regular rate and rhythm. No murmur appreciated. RESPIRATORY: No accessory muscle use. Clear to auscultation. Breath sounds equal bilaterally. GASTROINTESTINAL: Abdomen soft, non-tender, nondistended. Hepatic and splenic margins not palpable. MUSCULOSKELETAL: Status post bilateral BKA's with below the elbow amputation. NEUROLOGICAL: Awake and alert. No obvious cranial nerve deficits. Motor grossly within normal limits. Normal speech. Course Initial Documented Vital Signs Temperature 100.4 F H 10/10/17 04:48 Pulse Rate 93 H 10/10/17 04:48 Respiratory Rate 16 10/10/17 04:48 Blood Pressure 128/89 10/10/17 04:48 Pulse Oximetry 97 10/10/17 04:48 Last Documented Vital Signs Temperature 97.8 F 10/12/17 12:00 Pulse Rate 94 H 10/12/17 12:00 Respiratory Rate 18 10/12/17 12:00 Blood Pressure 122/88 10/12/17 12:00 Pulse Oximetry 96 10/12/17 12:00 Medical Decision Making MDM Narrative Medical decision making narrative: Is a 26-year-old man, history of HIV, unknown CD4 count, end-stage renal disease, on peritoneal dialysis, seizures, history of lymphoma. He has had multiple seizures with a marked change in his seizure frequency over the past 3 days. He had fever when he was here earlier. He had some PD catheter complications that appears to have been resolved but certainly is at risk for infection there as well. Had another seizure just after being discharged from the ED. At this point will check blood cultures, labs, x-ray. Review of his records it looks like to put him on some Dilantin earlier in addition to his Keppra. He has been taking his Keppra regularly. His HIV doctor writes for his Keppra. Does not sound like he sees a neurologist regularly. He has had some abnormal EEGs in the past when he was admitted. Lab Data Result diagrams: 10/11/17 08:00 10/12/17 09:32 Lab Results 10/10/17 10/10/17 10/10/17 Range/Units 05:50 05:50 05:50 WBC 12.8 H (4.0-11.0) th/mm3 RBC 4.49 L (4.50-5.90) mil/mm3 Hgb 11.2 L (13.0-17.0) gm/dL Hct 37.2 L (39.0-51.0) % MCV 82.8 (80.0-100.0) fL MCH 25.0 L (27.0-34.0) pg MCHC 30.2 L (32.0-36.0) % RDW 16.5 (11.6-17.2) % Plt Count 361 (150-450) th/mm3 MPV 9.6 (7.0-11.0) fL Prelim Diff (Auto) Slide review pending Neut % (Auto) 67.7 (16.0-70.0) % Lymph % (Auto) 19.6 (9.0-44.0) % [place] % (Auto) 10.4 H (0.0-8.0) % Eos % (Auto) 2.1 (0.0-4.0) % Baso % (Auto) 0.2 (0.0-2.0) % Neut # (Auto) 8.7 H (1.8-7.7) th/mm3 Lymph # (Auto) 2.5 (1.0-4.8) th/mm3 [place] # (Auto) 1.3 H (0.0-0.9) th/mm3 Eos # (Auto) 0.3 (0.0-0.4) th/mm3 Baso # (Auto) 0.0 (0.0-0.2) th/mm3 WBC Differential Manual diff final Seg Neuts % (Manual) 67 (16-70) % Band Neuts % (Manual) 1 (0-6) % Lymphocytes % (Manual) 24 (9-44) % Monocytes % (Manual) 6 (0-8) % Eosinophils % (Manual) 2 (0-4) % Basophils % (Manual) (0-2) % Abs Neuts (Manual) 8.7 H (1.8-7.7) th/mm3 Nucleated RBCs/100 WBC 9 H (0-0) /100 WBC Differential Comment . Platelet Estimate Normal (Normal) Platelet Morphology Enlarged H (Normal) RBC Morphology (Normal) Pappenheimer Bodies (None) Target Cells 1+ H (None) Ovalocytes 1+ H (None) [place] Bodies Present H (None) Acanthocytes (Spur) Occ H (None) Sodium 138 (136-145) meq/L Potassium 3.2 L (3.5-5.1) meq/L Chloride 102 (98-107) meq/L Carbon Dioxide 19.8 L (21.0-32.0) meq/L Anion Gap 16 H (5-15) meq/L BUN 52 H (7-18) mg/dL Creatinine 8.11 H (0.60-1.30) mg/dL Estimated GFR 10 L (>89) mL/min Random Glucose 100 (74-106) mg/dL Lactic Acid 1.2 (0.4-2.0) mmol/L Calcium 8.8 (8.5-10.1) mg/dL Phosphorus (2.5-4.9) mg/dL Total Bilirubin 0.3 (0.2-1.0) mg/dL AST 18 (15-37) U/L ALT 26 (12-78) U/L Alkaline Phosphatase 65 (45-117) U/L Total Protein 9.1 H (6.4-8.2) g/dL Albumin 3.8 (3.4-5.0) g/dL Urine Color (Yellw/Straw) Urine Clarity (Clear) Urine pH (5.0-8.5) Ur Specific [place] (1.002-1.035) Urine Protein (Neg-Trace) mg/dL Urine Glucose (UA) (Negative) mg/dL Urine Ketones (Negative) mg/dL Urine Occult Blood (Negative) Urine Nitrate (Negative) Urine Bilirubin (Negative) Urine Urobilinogen (Less than 2) mg/dL Ur Leukocyte Esterase (Negative) Urine RBC (0-3) /hpf Urine WBC (0-5) /hpf Ur Squamous Epith Cells (0-5) /hpf Urine Bacteria (None) /hpf Urine Mucus (Occasional) /lpf Micro UA Comment Urine Culture Comments Peritoneal RBC (0-0) /mm3 Periton Nuc Cells (0-10) /mm3 Periton Neutrophils % Periton Lymphocytes % Peritoneal Monocytes % Peritoneal Eosinophils % Peritoneal Fld Comment Levetiracetam (12.0 - 46.0) mcg/mL 10/10/17 10/10/17 10/11/17 Range/Units 05:50 12:25 07:05 WBC (4.0-11.0) th/mm3 RBC (4.50-5.90) mil/mm3 Hgb (13.0-17.0) gm/dL Hct (39.0-51.0) % MCV (80.0-100.0) fL MCH (27.0-34.0) pg MCHC (32.0-36.0) % RDW (11.6-17.2) % Plt Count (150-450) th/mm3 MPV (7.0-11.0) fL Prelim Diff (Auto) Neut % (Auto) (16.0-70.0) % Lymph % (Auto) (9.0-44.0) % [place] % (Auto) (0.0-8.0) % Eos % (Auto) (0.0-4.0) % Baso % (Auto) (0.0-2.0) % Neut # (Auto) (1.8-7.7) th/mm3 Lymph # (Auto) (1.0-4.8) th/mm3 [place] # (Auto) (0.0-0.9) th/mm3 Eos # (Auto) (0.0-0.4) th/mm3 Baso # (Auto) (0.0-0.2) th/mm3 WBC Differential Seg Neuts % (Manual) (16-70) % Band Neuts % (Manual) (0-6) % Lymphocytes % (Manual) (9-44) % Monocytes % (Manual) (0-8) % Eosinophils % (Manual) (0-4) % Basophils % (Manual) (0-2) % Abs Neuts (Manual) (1.8-7.7) th/mm3 Nucleated RBCs/100 WBC (0-0) /100 WBC Differential Comment Platelet Estimate (Normal) Platelet Morphology (Normal) RBC Morphology (Normal) P[place]heimer Bodies (None) Target Cells (None) Ovalocytes (None) [place] Bodies (None) Acanthocytes (Spur) (None) Sodium (136-145) meq/L Potassium (3.5-5.1) meq/L Chloride (98-107) meq/L Carbon Dioxide (21.0-32.0) meq/L Anion Gap (5-15) meq/L BUN (7-18) mg/dL Creatinine (0.60-1.30) mg/dL Estimated GFR (>89) mL/min Random Glucose (74-106) mg/dL Lactic Acid (0.4-2.0) mmol/L Calcium (8.5-10.1) mg/dL Phosphorus (2.5-4.9) mg/dL Total Bilirubin (0.2-1.0) mg/dL AST (15-37) U/L ALT (12-78) U/L Alkaline Phosphatase (45-117) U/L Total Protein (6.4-8.2) g/dL Albumin (3.4-5.0) g/dL Urine Color Yellow (Yellw/Straw) Urine Clarity Hazy H (Clear) Urine pH 5.0 (5.0-8.5) Ur Specific [place] 1.012 (1.002-1.035) Urine Protein 100 H (Neg-Trace) mg/dL Urine Glucose (UA) 50 (Negative) mg/dL Urine Ketones Trace (Negative) mg/dL Urine Occult Blood Small H (Negative) Urine Nitrate Negative (Negative) Urine Bilirubin Negative (Negative) Urine Urobilinogen Less than 2 (Less than 2) mg/dL Ur Leukocyte Esterase Negative (Negative) Urine RBC Less than 1 (0-3) /hpf Urine WBC 3 (0-5) /hpf Ur Squamous Epith Cells 1 (0-5) /hpf Urine Bacteria Few H (None) /hpf Urine Mucus Few H (Occasional) /lpf Micro UA Comment Culture not ind Urine Culture Comments Culture not ind Peritoneal RBC 2 H (0-0) /mm3 Periton Nuc Cells 2 (0-10) /mm3 Periton Neutrophils 15 % Periton Lymphocytes 15 % Peritoneal Monocytes 60 % Peritoneal Eosinophils 10 % Peritoneal Fld Comment Levetiracetam 55.6 H (12.0 - 46.0) mcg/mL 10/11/17 10/11/17 10/12/17 Range/Units 08:00 08:00 09:32 WBC 9.0 (4.0-11.0) th/mm3 RBC 4.21 L (4.50-5.90) mil/mm3 Hgb 10.9 L (13.0-17.0) gm/dL Hct 35.0 L (39.0-51.0) % MCV 83.2 (80.0-100.0) fL MCH 26.0 L (27.0-34.0) pg MCHC 31.2 L (32.0-36.0) % RDW 15.9 (11.6-17.2) % Plt Count 344 (150-450) th/mm3 MPV 9.2 (7.0-11.0) fL Prelim Diff (Auto) Slide review pending Neut % (Auto) 60.4 (16.0-70.0) % Lymph % (Auto) 23.7 (9.0-44.0) % [place] % (Auto) 12.4 H (0.0-8.0) % Eos % (Auto) 2.8 (0.0-4.0) % Baso % (Auto) 0.7 (0.0-2.0) % Neut # (Auto) 5.4 (1.8-7.7) th/mm3 Lymph # (Auto) 2.1 (1.0-4.8) th/mm3 [place] # (Auto) 1.1 H (0.0-0.9) th/mm3 Eos # (Auto) 0.3 (0.0-0.4) th/mm3 Baso # (Auto) 0.1 (0.0-0.2) th/mm3 WBC Differential Manual diff final Seg Neuts % (Manual) 62 (16-70) % Band Neuts % (Manual) (0-6) % Lymphocytes % (Manual) 28 (9-44) % Monocytes % (Manual) 6 (0-8) % Eosinophils % (Manual) 3 (0-4) % Basophils % (Manual) 1 (0-2) % Abs Neuts (Manual) 5.6 (1.8-7.7) th/mm3 Nucleated RBCs/100 WBC 29 H (0-0) /100 WBC Differential Comment . Platelet Estimate (Normal) Platelet Morphology (Normal) RBC Morphology (Normal) Pappenheimer Bodies Present H (None) Target Cells 1+ H (None) Ovalocytes (None) [place] Bodies Present H (None) Acanthocytes (Spur) Occ H (None) Sodium 136 138 (136-145) meq/L Potassium 3.1 L 3.0 L (3.5-5.1) meq/L Chloride 99 101 (98-107) meq/L Carbon Dioxide 20.5 L 20.2 L (21.0-32.0) meq/L Anion Gap 17 H 17 H (5-15) meq/L BUN 47 H 44 H (7-18) mg/dL Creatinine 7.56 H 7.86 H (0.60-1.30) mg/dL Estimated GFR 10 L 10 L (>89) mL/min Random Glucose 88 93 (74-106) mg/dL Lactic Acid (0.4-2.0) mmol/L Calcium 9.7 D 10.2 H (8.5-10.1) mg/dL Phosphorus 4.7 (2.5-4.9) mg/dL Total Bilirubin (0.2-1.0) mg/dL AST (15-37) U/L ALT (12-78) U/L Alkaline Phosphatase (45-117) U/L Total Protein (6.4-8.2) g/dL Albumin 3.9 (3.4-5.0) g/dL Urine Color (Yellw/Straw) Urine Clarity (Clear) Urine pH (5.0-8.5) Ur Specific [place] (1.002-1.035) Urine Protein (Neg-Trace) mg/dL Urine Glucose (UA) (Negative) mg/dL Urine Ketones (Negative) mg/dL Urine Occult Blood (Negative) Urine Nitrate (Negative) Urine Bilirubin (Negative) Urine Urobilinogen (Less than 2) mg/dL Ur Leukocyte Esterase (Negative) Urine RBC (0-3) /hpf Urine WBC (0-5) /hpf Ur Squamous Epith Cells (0-5) /hpf Urine Bacteria (None) /hpf Urine Mucus (Occasional) /lpf Micro UA Comment Urine Culture Comments Peritoneal RBC (0-0) /mm3 Periton Nuc Cells (0-10) /mm3 Periton Neutrophils % Periton Lymphocytes % Peritoneal Monocytes % Peritoneal Eosinophils % Peritoneal Fld Comment Levetiracetam (12.0 - 46.0) mcg/mL Imaging Data Radiologist's impression: Chest X-Ray 10/10/17 05:44 CONCLUSION: No acute disease Discharge Plan Discharge Disposition Patient Disposition: 01 Discharge Home Discharge Condition Condition: Good Discharge Order Discharge Orders: Discharge Order (Routine); Ordered 10/12/17 Ordered By: Mingo Barnett Discharge Details Anticipated Discharge Date: 10/12/17 Physicians Team ED Provider: Rebel Frank Primary Care Provider: UNKNOWN, Attending Provider: Mingo Barnett Other Providers: Shady Agosto ; Gelacio Solis ; Nora Pepe Status ED Status: Left Department Discharge Information Discharge Date/Time: 10/10/17 16:59
[2017-10-10 06:34] LABS: Bacteria,Urine Few /hpf; Bilirubin,Urine Negative (Negative); Clarity,Urine Hazy (Clear); Color,Urine Yellow (Yellw/Straw); Glucose,Urine (UA) 50 mg/dL (Negative); Leukocyte Esterase,Urine Negative (Negative); Mucus,Urine Few /lpf (Occasional); Nitrite,Urine Negative (Negative); Specific Gravity,Urine 1.012 (1.002-1.035); Squamous Epithelial Cell,Urine 1 /hpf (0-5)
[2017-10-10 06:57] LABS: Alanine Aminotransferase 26 U/L (12-78); Albumin 3.8 g/dL (3.4-5.0); Alkaline Phosphatase 65 U/L (45-117); Anion Gap 16 meq/L (5-15); Aspartate Aminotransferase 18 U/L (15-37); Blood Urea Nitrogen 52 mg/dL (7-18); Calcium 8.8 mg/dL (8.5-10.1); Carbon Dioxide 19.8 meq/L (21.0-32.0); Chloride 102 meq/L (98-107); Glomerular Filtration Rate 10 mL/min (>89); Glucose,Random 100 mg/dL (74-106); Potassium 3.2 meq/L (3.5-5.1); Sodium 138 meq/L (136-145); Total Protein 9.1 g/dL (6.4-8.2)
[2017-10-10 07:28] LABS: Eosinophils 2 % (0-4); Howell-Jolly Bodies Present; Lymphocytes 24 % (9-44); Monocytes 6 % (0-8); Tallied Nucleated RBC 9 (0-0); Target Cells 1+
[2017-10-10 07:29] LABS: Ovalocytes 1+
[2017-10-10 07:31] LABS: Platelet Estimate Normal (Normal)
[2017-10-10 07:32] LABS: Acanthocytes Occ
--- NOTE | 2017-10-10 09:43 | P.HPIM ---
History of Present Illness Primary Care Physician: UNKNOWN Chief Complaint: I had a seizure History of Present Illness: 26-year-old male with a history of HIV, end-stage renal disease on peritoneal dialysis, seizure disorder represented to the emergency room after he was released earlier last night and had a recurrent seizure in the parking lot. Apparently, patient states that she he had 6 grand mal seizure in the past 3 days 1 causing him to injure his lip causing a small right sided lip laceration. He has been compliant taking his anticonvulsants and he takes 750 mg twice a day of Keppra. In addition, he represented to the emergency room with a fever 100.4. He states that he has not had any symptoms of shortness of breath nor any chills or fever. He does report a dry cough over the few days and had 3 episodes of loose stools 3 days ago which has resolved. He had missed his peritoneal dialysis last night due to being in the emergency room and sees Dr. 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 He does report some small early abrasion over the right BKA along with having a small wound over the left sided scalp due to his seizure episode. Inpatient Certification: I certify that the inpatient services were ordered in accordance with Medicare regulations governing the order. This includes certification that hospital inpatient services are reasonable and necessary and in the case of services not specified as inpatient-only under 42 CFR 419.22(n), that they are appropriately provided as inpatient services in accordance to with the 2-midnight benchmark under 43 CFR 412.3(e) Review of Systems All other systems reviewed negative except as stated in HPI PMFSH - History History Provided By: Patient, Family Member - Medical History Medical History: Medical History (Last Updated 10/10/17 @ 09:37 by Bere Kam MD) 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 Lymphoma in remission Peritoneal dialysis catheter in place S/P BKA (below knee amputation) bilateral Seizures HIV (human immunodeficiency virus infection) Kidney failure - Family History Family History: Family History (Last Updated 10/10/17 @ 09:37 by Bere Kam MD) Mother HIV (human immunodeficiency virus infection) - Tobacco History Second Hand Smoke Exposure: No Tobacco Use In Past 30 Days: No Smoking Status: Never smoker Tobacco Type: Cigarettes - Alcohol History How Often Do You Have a Drink Containing Alcohol: Never - Substance Use History Substance History: No History of Abuse - Travel History Recent Travel in the [place] Within the Last 8 Weeks: No Recent Travel Out of the Country Within the Last 8 Weeks: No - Immunization History Tetanus Immunization: Unsure Hx Influenza Vaccine This Season: No Medications and Allergies Allergies Allergy/AdvReac Type Severity Reaction Status Date / Time amoxicillin Allergy Severe rash all Verified 10/10/17 04:59 over clindamycin Allergy Severe Desquamating Verified 10/10/17 04:59 rash penicillin G Allergy Severe Anaphylaxis Verified 10/10/17 04:59 vancomycin Allergy Severe Desqumating Verified 10/10/17 04:59 rash Home Medications Medication Instructions Recorded Confirmed Type abacavir 300 mg PO Q12H 10/07/17 10/10/17 History calcium acetate 667 mg PO TID 10/07/17 10/10/17 History famotidine 20 mg PO DAILY 10/07/17 10/10/17 History lamivudine 150 mg PO DAILY 10/07/17 10/10/17 History levetiracetam [Keppra] 750 mg PO Q12H 10/07/17 10/10/17 History ondansetron HCl [Zofran] 4 mg PO TID PRN 10/07/17 10/10/17 History ritonavir 100 mg PO BID 10/07/17 10/10/17 History Exam Vital signs: Vital Signs 10/10/17 04:48 10/10/17 05:51 10/10/17 06:10 Temperature 100.4 F H Pulse Rate 93 H 80 Respiratory Rate 16 Blood Pressure 128/89 Pulse Oximetry 97 97 10/10/17 06:11 10/10/17 08:00 Temperature Pulse Rate 80 103 H Respiratory Rate 16 16 Blood Pressure 117/78 123/84 Pulse Oximetry 98 99 Intake & Output 10/09/17 10/10/17 10/10/17 18:59 06:59 18:59 Weight 72 kg Narrative: GENERAL: Well-nourished well-developed male in no acute distress SKIN: Warm and dry. Right BKA stump with early superficial excoriated wound with no drainage or significant opening, superficial left scalp parietal wound with no active drainage HEAD: Atraumatic. Normocephalic. EYES: Pupils equal and round. No scleral icterus. No injection or drainage. ENT: No nasal bleeding or discharge. Mucous membranes pink and moist. Oropharynx benign with no erythema NECK: Trachea midline. No JVD. No lymphadenopathy CARDIOVASCULAR: Regular rate and rhythm. RESPIRATORY: No accessory muscle use. Clear to auscultation. Breath sounds equal bilaterally. GASTROINTESTINAL: Abdomen soft, non-tender, nondistended. Hepatic and splenic margins not palpable. Normoactive bowel sounds, peritoneal catheter in place MUSCULOSKELETAL: Extremities without clubbing, cyanosis, or edema. Bilateral BKA, right forearm amputation right NEUROLOGICAL: Awake and alert to person place time and situation. No obvious cranial nerve deficits. Motor grossly within normal limits. Normal speech. PSYCHIATRIC: Appropriate mood and affect; insight and judgment normal. Results - Labs CBC & Chem 7: 10/10/17 05:50 10/10/17 05:50 Labs: Short CBC 10/10/17 Range/Units 05:50 WBC 12.8 H (4.0-11.0) th/mm3 Hgb 11.2 L (13.0-17.0) gm/dL Hct 37.2 L (39.0-51.0) % Plt Count 361 (150-450) th/mm3 BMP 10/10/17 05:50 Sodium 138 Potassium 3.2 L Chloride 102 Carbon Dioxide 19.8 L BUN 52 H Creatinine 8.11 H Calcium 8.8 Liver Function 10/10/17 Range/Units 05:50 Total Bilirubin 0.3 (0.2-1.0) mg/dL AST 18 (15-37) U/L ALT 26 (12-78) U/L Alkaline Phosphatase 65 (45-117) U/L Albumin 3.8 (3.4-5.0) g/dL Urine 10/10/17 Range/Units 05:50 Urine Color Yellow (Yellw/Straw) Urine Clarity Hazy H (Clear) Urine pH 5.0 (5.0-8.5) Ur Specific [place] 1.012 (1.002-1.035) Urine Protein 100 H (Neg-Trace) mg/dL Urine Glucose (UA) 50 (Negative) mg/dL - Imaging Impressions Chest X-Ray 10/10/17 05:44 CONCLUSION: No acute disease Caprini VTE Risk Assessment Caprini VTE Risk Assessment: Moderate/High Risk (score >= 2) Caprini Risk Assessment Model: Point Value = 1 Point Value = 2 Point Value = 3 Point Value = 5 Age 41-60 Minor surgery BMI > 25 kg/m2 Swollen legs Varicose veins or History of unexplained or recurrent spontaneous Oral contraceptives or hormone replacement Sepsis (< 1 month) Serious lung disease, including pneumonia (< 1 month) Abnormal pulmonary function Acute myocardial infarction Congestive heart failure (< 1 month) History of inflammatory bowel disease Medical patient at bed rest Age 61-74 Arthroscopic surgery Major open surgery (> 45 min) Laparoscopic surgery (> 45 min) Malignancy Confined to bed (> 72 hours) Immobilizing plaster cast Central venous access Age >= 75 History of VTE Family history of VTE Factor V Leiden Prothrombin [id number] Lupus anticoagulant Anticardiolipin antibodies Elevated serum homocysteine Heparin-induced thrombocytopenia Other congenital or acquired thrombophilia Stroke (< 1 month) Elective arthroplasty Hip, pelvis, or leg fracture Acute spinal cord injury (< 1 month) Prophylaxis Regimen: Total Risk Factor Score Risk Level Prophylaxis Regimen 0-1 Low Early ambulation 2 Moderate Order ONE of the following: *Sequential Compression Device (SCD) *Heparin 5000 units SQ BID 3-4 Higher Order ONE of the following medications: *Heparin 5000 units SQ TID *Enoxaparin/Lovenox 40 mg SQ daily (WT < 150 kg, CrCl > 30 mL/min) *Enoxaparin/Lovenox 30 mg SQ daily (WT < 150 kg, CrCl > 10-29 mL/min) *Enoxaparin/Lovenox 30 mg SQ BID (WT < 150 kg, CrCl > 30 mL/min) AND/OR *Sequential Compression Device (SCD) 5 or more Highest Order ONE of the following medications: *Heparin 5000 units SQ TID (Preferred with Epidurals) *Enoxaparin/Lovenox 40 mg SQ daily (WT < 150 kg, CrCl > 30 mL/min) *Enoxaparin/Lovenox 30 mg SQ daily (WT < 150 kg, CrCl > 10-29 mL/min) *Enoxaparin/Lovenox 30 mg SQ BID (WT < 150 kg, CrCl > 30 mL/min) AND *Sequential Compression Device (SCD) Assessment and Plan - Plan 1. Recurrent seizures in a patient with history of seizure disorderadmit for neurology consultation. Continue with Keppra and place on seizure precautions. Plan EEG. CT of the brain show no acute intracranial abnormality. 2. Presenting low-grade fever in a patient with immunosuppression HIVwe will send peritoneal fluid for cultures and sensitivity, follow with blood cultures and obtain infectious disease consultation for further recommendations. Patient does not appear to be toxic or septic, will hold off on antibiotics until fluid cultures are obtained. 3. End-stage renal diseaseresume peritoneal dialysis will consult ornamental ironworking supervisor Dr. Solis 4. Hypokalemiasupplement 5. HIV- resume home medications 5. DVT prophylaxisheparin with peritoneal dialysis.
[2017-10-10] MEDS ORDERED: Acetaminophen 325 MG Tablet PO PRN (09:46)
[2017-10-10] MEDS ORDERED: Bisacodyl 10 MG Supp RECTAL PRN (09:46)
[2017-10-10] MEDS: levETIRAcetam 500 MG Tablet PO SCH ×2 (10:34→23:03)
--- NOTE | 2017-10-10 12:38 | MB ---
cc: Gelacio Solis MD DATE: 10/10/2017 REASON FOR CONSULTATION: End-stage renal disease, on hemodialysis for management. HISTORY OF PRESENT ILLNESS: This is a 26-year-old male, known to me from before, with history of HIV, chronic anemia, history of seizure disorder, end-stage renal disease on peritoneal dialysis, who came to the hospital because of recurrent seizure. I was called to see the patient for management of dialysis. He has been on peritoneal dialysis and occasionally has been missing dialysis treatment, according to his aunt. He missed 2 or 3 days last weekend, but he has been doing it since Thursday except last night. He came to the emergency department 3-4 days ago, and at that time, he had seizure and he was discharged. According to him, he has been taking his medications regularly. Apparently, he had seizures again yesterday, fell down and has an injury to his upper lip, which is swollen. There was no broken teeth. He lost the consciousness for a few minutes and then woke up. He came to the emergency department and he was about to discharge and then he developed another seizure. He had a small wound on the left side of the skull before the recurrent fall. Denies any shortness of breath. No abdominal pain. The PD fluid has been clear. He has no nausea or vomiting. No history of diarrhea. PAST MEDICAL HISTORY: HIV disease, history of seizure, chronic anemia, and end-stage renal disease, on peritoneal dialysis. PAST SURGICAL HISTORY: History of bilateral below-knee amputation, left arm amputation, and history of PD catheter placement. REVIEW OF SYSTEMS: Denies any history of fever. The patient has some dizziness before he got the seizures. Now he is feeling better. There is no headache or dizziness now. There is no shortness of breath, no chest pain, no palpitation. No nausea or vomiting. According to him, the appetite is normal. There is no history of diarrhea and no abdominal pain. SOCIAL HISTORY: The patient is single and lives with his aunt and grandmother. There is no history of smoking or alcoholism. FAMILY HISTORY: Positive for HIV from the mother's side and his mother is . ALLERGIES: HE IS ALLERGIC TO AMOXICILLIN, CLINDAMYCIN, PENICILLIN G AND VANCOMYCIN. MEDICATIONS: Currently, he is on following medications: 1. Ziagen 300 mg every 12 hours. 2. Tylenol as needed. 3. Milk of magnesia. 4. PhosLo 667 mg t.i.d. 5. Pepcid 10 mg b.i.d. 6. Lactulose 30 mL p.r.n. 7. Epivir 150 mg daily. 8. Keppra 750 mg every 12 hours. 9. Lorazepam 2 mg p.r.n. 10. Norvir 200 mg b.i.d. 11. Senokot 17.2 mg every 12 hours. PHYSICAL EXAMINATION: GENERAL: The patient is awake, alert. He is not in acute distress. VITAL SIGNS: His last blood pressure is 128/89, temperature is 100.4, oxygen saturation on room air is 97%. HEENT: Pupils are mid constricted. Nonicteric sclerae. Conjunctivae pale. NECK: Supple. JVD is not elevated. LUNGS: The patient has bilateral good air entry with occasional wheezing. HEART: S1, S2. Regular rate and rhythm. ABDOMEN: Distended, soft, lax. There is no definite tenderness. Bowel sounds positive. EXTREMITIES: He has bilateral below-knee amputation. INVESTIGATIONS: WBC count is 12.8, hemoglobin 11.2, platelet count of 361, neutrophils 67.7%. Sodium 138, potassium 3.2, chloride 102, bicarbonate 19.8, BUN 52, creatinine 8.1, AST 18, ALT 26, total protein is 9.1, albumin is 3.8. Blood culture pending. IMAGING STUDIES: The patient had a chest x-ray done, which shows he has no acute disease. ASSESSMENT AND PLAN: 1. Recurrent seizures. 2. End-stage renal disease, on peritoneal dialysis. 3. History of human immunodeficiency virus disease. 4. Hypokalemia. 5. Low-grade fever. 6. Mild anemia. The patient has recurrent seizures. He is on Keppra. CT of the brain was done which shows no acute intracranial abnormality. The patient claims to be compliant with his medications, although he is missing some of the dialysis treatments and told to be compliant with dialysis. His potassium is slightly low, which was replaced. We will continue the peritoneal dialysis at the same setting what he was taking at home for 10 hours. He has low-grade fever. Blood cultures done. Infectious Disease has been consulted. Follow their recommendations. Thank you for the consultation. I will follow the patient while he is in the hospital. Levi Solis MD AQJ/KD , 11:16 AM , 12:36 PM
[2017-10-10] MEDS: Lacosamide 50 MG Tablet PO SCH ×2 (12:46→20:49)
[2017-10-10] MEDS: Calcium Acetate 667 MG Capsule PO SCH ×2 (12:46→20:49)
--- NOTE | 2017-10-10 12:49 | MB ---
cc: Nora Pepe MD DATE: 10/10/2017 REASON FOR CONSULTATION: Recurrent seizures. 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 Apparently, he was released yesterday and came back after having another seizure in the parking lot. He injured his lip and small laceration. He takes Keppra 750 mg twice a day. 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 FAMILY HISTORY: His mother had HIV. She is . I believe aunt is taking care of him. SOCIAL HISTORY: He has no history of smoking. No alcohol. No history of drug abuse. HOME MEDICINES: Refer to his MAR, but apparently he is on Keppra 750 mg b.i.d. He is also on Zofran, famotidine, lamivudine, abacavir, calcium acetate and ritonavir. PHYSICAL EXAMINATION: VITAL SIGNS: His temperature is 100.4 currently, heart rate 103, respiratory rate 16, blood pressure 123/84, satting at 99% on room air. NECK: Supple. NEUROLOGIC: He is awake and alert, hypophonic. Pupils are reactive. He does have a laceration of the lip. Can move his right arm as well as the stumps, left arm and BKA. He is undergoing an EEG. LABORATORY DATA: Reviewed. His white count is 12.8, hemoglobin 11.2; hematocrit 37.2; platelets are 361,000. Chemistries: Potassium 3.2, CO2 of 19.8, BUN 52, creatinine 8.11, GFR is 10, glucose 100, lactic acid 1.2, albumin 3.8. Urine: No culture indicated. Blood cultures are pending. IMAGING STUDIES: Head CT on 10/10/2017 was performed and it was negative. Chest x-ray: No acute pulmonary disease noted. ASSESSMENT AND PLAN: A 26-year-old man with a history of epilepsy since childhood with refractory seizures, currently on Keppra 750 mg b.i.d. Given his renal parameters, is on peritoneal dialysis and per recommendations for peritoneal dialysis it is somewhere between 500 and 1000 mg every day, so he is already at 1500. I would not go up any higher than that. Would recommend adding a second line agent to his antiepileptic medications as an adjunct therapy. I am going to put him on lacosamide. We will start at 50 mg daily and then if he is tolerating it, certainly b.i.d. dosing can be given. Maintain seizure precautions. EEG is being performed now and if he is stable, discharge planning. MD GRETA Whitley/SAILAJA , 11:29 AM , 12:47 PM
[2017-10-10] MEDS ORDERED: Heparin 10,000 UNITS/10 ML Vial (for IV use) IV.FLUSH PRN (15:09)
--- NOTE | 2017-10-10 18:22 | MB ---
cc: Shady Agosto MD DATE: 10/10/2017 REQUESTING PHYSICIAN: Dr. Kam REASON FOR CONSULTATION: Seizure and fever with history of HIV, on peritoneal dialysis. HISTORY OF PRESENT ILLNESS: This is a 26-year-old black male who was brought to the emergency department after having seizures. The patient sustained one seizure at home and was brought to the emergency department and en route to the emergency department, he had a second seizure. The patient has a history of end-stage renal disease and does peritoneal dialysis at home. His last peritoneal dialysis treatment was 2 days ago. He states that the peritoneal fluid was clear. He denies chills, shortness of breath, nausea, vomiting, abdominal pain. He is currently on Keppra for seizure disorder. He has HIV disease and is receiving HIV medicines well. The patient had temperature of 100.4 degrees early this morning and, after that, his temperature has been normal. Consultation was requested because of fever. The patient tells me that he did not have fever when he was at home. He states that he has poor appetite. He denies abdominal pain. Cultures include blood cultures from early today, which are pending. Urinalysis reveals 3 white cells. Culture was not indicated. His white count is 12.8. Currently, he is awake and alert and is playing with his phone. The patient is very alert and interactive. During previous visits by me to the patient during prior hospitalization, I found him to be withdrawn and not interactive and mostly ignoring my presence. Today, he is very interactive and pleasant. He denies headache. He does have a tiny superficial ulceration at the left posterior skull just above the ear where he fell. There is no drainage and no tenderness there. The upper lip is also swollen from trauma from falling. PAST MEDICAL HISTORY: Kidney failure, HIV disease, lymphoma in remission, chronic peritoneal dialysis, seizure, bilateral [id number] amputation, below left elbow amputation. ALLERGIES: VANCOMYCIN, CLINDAMYCIN, AMOXICILLIN, PENICILLIN. MEDICATIONS: Ziagen, Norvir, Phoslo, Lacosamide, epivir, Keppra. SOCIAL HISTORY: No tobacco. The patient never smoked. No alcohol use. No illicit drugs. FAMILY HISTORY: Noncontributory. REVIEW OF SYSTEMS: All systems reviewed and are negative except for that mentioned in the history of present illness. The patient reported to have had six seizures in the past 3 days. PHYSICAL EXAMINATION: GENERAL: This is a petite male who is in no acute distress. He is awake and alert and oriented. VITAL SIGNS: Temperature 98.7, BP 125/83, respirations 16, heart rate 100. HEENT: The head has a tiny ulceration at the left posterolateral scalp. The upper lip has swelling. Extraocular movements grossly intact. Pupils reactive to light. No icterus. Oropharynx: Moist mucosa. No lesions. NECK: Supple without adenopathy. LUNGS: Clear breath sounds bilaterally. HEART: Regular S1, S2. No murmurs heard. ABDOMEN: Bowel sounds present. Soft, no tenderness appreciated. Peritoneal dialysis catheter exits the abdomen and has no signs of infection. RECTAL: Not performed. EXTREMITIES: No clubbing, cyanosis or edema. SKIN: No diffuse rash. NEUROLOGIC: No gross focal finding. PSYCHIATRIC: Patient is calm and cooperative and has normal mood. LABORATORY DATA: WBC 12.8, 67% neutrophils, platelet count 361, hemoglobin 11.2, creatinine 8.1, BUN 52, estimated GFR 10. Sodium 138. IMAGING STUDIES: Chest x-ray shows no acute infiltrates. IMPRESSION: 1. Fever and seizures. The patient with known history of seizure, who has been on Keppra. 2. End-stage kidney disease. The patient is receiving peritoneal dialysis. 3. Human immunodeficiency virus disease. Currently on HAART. There does not appear to be any clear source of the fever. The fever is low grade and the white blood cell count is mildly elevated. The chest x-ray and urinalysis is unremarkable and, from the description of his peritoneal dialysate, it does not appear that it is related to the current fever which he is having. However, I would want to see the dialysate and we should send cultures once peritoneal dialysis is resumed. RECOMMENDATIONS: 1. Monitor the blood cultures. 2. Monitor the temperature. 3. Monitor clinical status. 4. Send peritoneal dialysate cultures when dialysis is reinstituted. 5. Monitor the clinical status. 6. Continue the patient's current HIV medications. Thank you for this consultation. I will follow the patient along with you and will make further recommendations on followup. Shady Agosto MD FFLoraine/SA Baron: 10/10/2017, 05:48 PM , 06:21 PM ANGE
[2017-10-10] MEDS: Bacitracin/Polymyxin Oint 15 GM Tube TOPICAL SCH (20:50)
--- NOTE | 2017-10-11 07:40 | MG ---
cc: Nora Pepe MD REFERRING PHYSICIAN: Eddy. EEG NUMBER: [id number] ROOM: E50 PATIENT INFORMATION: Photic done. CT negative. History of epilepsy. Last EEG was in 07/2017. Some abnormality, possible irritability in the left frontal per report. Male with history of epilepsy, had 6 seizures in the past 3 days, on Keppra, history of HIV, bone marrow transplant. DESCRIPTION OF RECORD: Overall background shows some mild slowing of 6 Hz. Some artifact notable with patient moving. Falls asleep. There is some high amplitude waves in his sleep. Photic stimulation does elicit a driving response. IMPRESSION: Somewhat suboptimal electroencephalogram due to excessive movement, but no gross epileptiform features. Mild slowing at times, may be somnolence versus medication effect versus encephalopathy. Clinical correlation. Nora Pepe MD DF/SAILAJA , 07:23 AM , 07:39 AM
[2017-10-11 08:26] LABS: Baso # (Auto) 0.1 th/mm3 (0.0-0.2); Baso % (Auto) 0.7 % (0.0-2.0); Eos # (Auto) 0.3 th/mm3 (0.0-0.4); Eos % (Auto) 2.8 % (0.0-4.0); Hemoglobin 10.9 gm/dL (13.0-17.0); Lymph # (Auto) 2.1 th/mm3 (1.0-4.8); Lymph % (Auto) 23.7 % (9.0-44.0); Mean Corpuscular HGB Conc 31.2 % (32.0-36.0); Mean Corpuscular Volume 83.2 fL (80.0-100.0); Mean Platelet Volume 9.2 fL (7.0-11.0); Mono # (Auto) 1.1 th/mm3 (0.0-0.9); Mono % (Auto) 12.4 % (0.0-8.0); Neut # (Auto) 5.4 th/mm3 (1.8-7.7); Neut % (Auto) 60.4 % (16.0-70.0); Platelet Count 344 th/mm3 (150-450); Red Blood Count 4.21 mil/mm3 (4.50-5.90); Red Cell Distribution Width 15.9 % (11.6-17.2)
[2017-10-11 08:49] LABS: RBC,Peritoneal Fluid 2 /mm3 (0-0)
[2017-10-11 08:50] LABS: Eosinophils,Peritoneal Fluid 10 %; Neutrophils,Peritoneal Fluid 15 %
[2017-10-11 08:57] LABS: Calcium 9.7 mg/dL (8.5-10.1); Carbon Dioxide 20.5 meq/L (21.0-32.0); Potassium 3.1 meq/L (3.5-5.1)
--- NOTE | 2017-10-11 09:11 | P.PNNP ---
Physical Exam Vital signs: Vital Signs 10/10/17 11:26 10/10/17 14:37 10/10/17 16:00 Temperature 99.0 F 98.8 F 98.7 F Pulse Rate 103 H 100 H Respiratory Rate 19 16 Blood Pressure 124/81 125/83 Pulse Oximetry 98 98 10/10/17 20:09 10/10/17 23:46 10/11/17 03:23 Temperature 98.1 F 98.0 F 98.0 F Pulse Rate 108 H 113 H 102 H Respiratory Rate 18 17 17 Blood Pressure 127/92 H 131/91 H 130/94 H Pulse Oximetry 94 L 94 L 94 L 10/11/17 08:00 Temperature 97.8 F Pulse Rate 93 H Respiratory Rate 18 Blood Pressure 127/87 Pulse Oximetry 94 L Intake & Output 10/10/17 10/11/17 10/11/17 18:59 06:59 18:59 Intake Total 1500 / 1500 Output Total 350 / 350 650 / 650 418 / 418 Balance -350 / -350 850 / 850 -418 / -418 Intake: Oral 1500 / 1500 Output: Urine 350 / 350 650 / 650 Peritoneal Amount 418 / 418 Other: # Voids 2 Date of Last Bowel Movement 10/10/17 <Lou Hoffman - Last Filed: 10/11/17 08:59> Assessment and Plan - Assessment (1) End stage renal disease on dialysis Code(s): N18.6 - End stage renal disease; Z99.2 - Dependence on renal dialysis Status: Acute Plan: End-stage renal disease, on peritoneal dialysis. Continue PD nightly at the same setting what he takes at home for 10 hours. Hypokalemia at 3.1 this morning will replace with 40 MEQ of KCL. Continue Phoslo will check PO4 level in AM. Renal diet. Avoid IVF administration. (2) Seizure Code(s): R56.9 - Unspecified convulsions Status: Acute Plan: Neurology consulted On Keppra and lacosamide added (3) HIV disease Code(s): B20 - Human immunodeficiency virus [HIV] disease Status: Acute Plan: Home medications continued (4) Fever Code(s): R50.9 - Fever, unspecified Status: Acute Plan: ID consulted, cultures pending. <Lou Hoffman - Last Filed: 10/11/17 08:59> - Assessment (1) End stage renal disease on dialysis Code(s): N18.6 - End stage renal disease; Z99.2 - Dependence on renal dialysis Status: Acute (2) Seizure Code(s): R56.9 - Unspecified convulsions Status: Acute (3) HIV disease Code(s): B20 - Human immunodeficiency virus [HIV] disease Status: Acute (4) Fever Code(s): R50.9 - Fever, unspecified Status: Acute - Attending Attestation Patient seen and examined, agree with above. On Keppra and added Lacosamide. <Gelacio Solis - Last Filed: 10/15/17 11:17>
[2017-10-11 09:37] LABS: Eosinophils 3 % (0-4); Lymphocytes 28 % (9-44); Monocytes 6 % (0-8); Tallied Nucleated RBC 29 (0-0)
[2017-10-11 09:43] LABS: Acanthocytes Occ; Howell-Jolly Bodies Present; Pappenheimer Bodies Present; Target Cells 1+
[2017-10-11] MEDS: Famotidine 20 MG Tablet PO SCH ×2 (11:43→21:15)
[2017-10-11] MEDS: Calcium Acetate 667 MG Capsule PO SCH ×3 (11:43→19:41)
[2017-10-11] MEDS: levETIRAcetam 500 MG Tablet PO SCH ×2 (11:46→23:42)
[2017-10-11] MEDS: Bacitracin/Polymyxin Oint 15 GM Tube TOPICAL SCH ×2 (11:47→21:14)
[2017-10-11] MEDS: Lacosamide 50 MG Tablet PO SCH ×3 (11:51→21:15)
--- NOTE | 2017-10-11 15:32 | P.PNIM ---
Subjective Interval history: Patient says he is feeling all right. Denies any pain. Denies any chest pain or shortness of breath. Denies nausea vomiting. Physical Exam Vital signs: Vital Signs 10/10/17 16:00 10/10/17 20:09 10/10/17 23:46 Temperature 98.7 F 98.1 F 98.0 F Pulse Rate 100 H 108 H 113 H Respiratory Rate 16 18 17 Blood Pressure 125/83 127/92 H 131/91 H Pulse Oximetry 98 94 L 94 L 10/11/17 03:23 10/11/17 08:00 10/11/17 12:00 Temperature 98.0 F 97.8 F 98.9 F Pulse Rate 102 H 93 H 106 H Respiratory Rate 17 18 16 Blood Pressure 130/94 H 127/87 119/84 Pulse Oximetry 94 L 94 L 95 Intake & Output 10/10/17 10/11/17 10/11/17 18:59 06:59 18:59 Intake Total 1500 / 1500 Output Total 350 / 350 650 / 650 418 / 418 Balance -350 / -350 850 / 850 -418 / -418 Intake: Oral 1500 / 1500 Output: Urine 350 / 350 650 / 650 Peritoneal Amount 418 / 418 Other: # Voids 2 Date of Last Bowel Movement 10/10/17 Narrative: GENERAL: Patient lying in bed. Sleeping, wakes of her exam. Appears comfortable. SKIN: Warm and dry. HEAD: Normocephalic. EYES: No scleral icterus. No injection or drainage. NECK: Supple, trachea midline. No JVD. CARDIOVASCULAR: Regular rate and rhythm without murmurs, gallops, or rubs. RESPIRATORY: Breath sounds equal bilaterally. No accessory muscle use. GASTROINTESTINAL: Abdomen soft, non-tender, nondistended. No rebound or guarding. MUSCULOSKELETAL: No cyanosis, or edema. BACK: Nontender without obvious deformity. No CVA tenderness. Results - Labs CBC & Chem 7: 10/11/17 08:00 10/11/17 08:00 Laboratory Results - last 24 hr 10/11/17 10/11/17 10/11/17 07:05 08:00 08:00 WBC 9.0 RBC 4.21 L Hgb 10.9 L Hct 35.0 L MCV 83.2 MCH 26.0 L MCHC 31.2 L RDW 15.9 Plt Count 344 MPV 9.2 Prelim Diff (Auto) Slide review pending Neut % (Auto) 60.4 Lymph % (Auto) 23.7 Lewis % (Auto) 12.4 H Eos % (Auto) 2.8 Baso % (Auto) 0.7 Neut # (Auto) 5.4 Lymph # (Auto) 2.1 Lewis # (Auto) 1.1 H Eos # (Auto) 0.3 Baso # (Auto) 0.1 WBC Differential Manual diff final Seg Neuts % (Manual) 62 Lymphocytes % (Manual) 28 Monocytes % (Manual) 6 Eosinophils % (Manual) 3 Basophils % (Manual) 1 Abs Neuts (Manual) 5.6 Nucleated RBCs/100 WBC 29 H Differential Comment . Pappenheimer Bodies Present H Target Cells 1+ H [place] Bodies Present H Acanthocytes (Spur) Occ H Sodium 136 Potassium 3.1 L Chloride 99 Carbon Dioxide 20.5 L Anion Gap 17 H BUN 47 H Creatinine 7.56 H Estimated GFR 10 L Random Glucose 88 Calcium 9.7 D Peritoneal RBC 2 H Periton Nuc Cells 2 Periton Neutrophils 15 Periton Lymphocytes 15 Peritoneal Monocytes 60 Peritoneal Eosinophils 10 Peritoneal Fld Comment Microbiology 10/10/17 05:55 Blood - Peripheral Aerobic Blood Culture - Preliminary No growth in 1 day 10/10/17 05:55 Blood - Peripheral Anaerobic Blood Culture - Preliminary No growth in 1 day 10/10/17 05:50 Blood - Peripheral Aerobic Blood Culture - Preliminary No growth in 1 day 10/10/17 05:50 Blood - Peripheral Anaerobic Blood Culture - Preliminary No growth in 1 day 10/11/17 07:05 Fluid - Peritoneal fluid Gram Stain - Final Assessment and Plan - Plan //Recurrent seizures in a patient with history of seizure disorderadmit for neurology consultation. Continue with Keppra and place on seizure precautions. Plan EEG. CT of the brain show no acute intracranial abnormality. = Occasions adjusted by neurology. Continue to monitor. Appreciate assistance. //Presenting low-grade fever in a patient with immunosuppression HIVwe will send peritoneal fluid for cultures and sensitivity, follow with blood cultures and obtain infectious disease consultation for further recommendations. Patient does not appear to be toxic or septic, will hold off on antibiotics until fluid cultures are obtained. = Infectious disease following. Continue antibiotics. Follow-up peritoneal fluid cultures. // End-stage renal diseaseresume peritoneal dialysis will consult industrial court magistrate Dr. Solis = Nephrology following. Continue PD. Appreciate assistance //Hypokalemianephrology following. Appreciate assistance for //HIV- resume home medications. Infectious disease following. // DVT prophylaxis Discharge Planning: Pending infectious disease and neurology clearance.
[2017-10-12] MEDS: Famotidine 20 MG Tablet PO SCH (08:54)
[2017-10-12] MEDS: Lacosamide 50 MG Tablet PO SCH (08:55)
[2017-10-12] MEDS: Calcium Acetate 667 MG Capsule PO SCH ×2 (08:56→13:03)
[2017-10-12] MEDS: Bacitracin/Polymyxin Oint 15 GM Tube TOPICAL SCH (08:57)
--- NOTE | 2017-10-12 09:48 | P.PNIM ---
Subjective Interval history: Patient reports that dull abdominal pain continues today. Denies any chest pain shortness of breath. Physical Exam Vital signs: Vital Signs 10/11/17 12:00 10/11/17 16:00 10/11/17 19:21 Temperature 98.9 F 98.6 F 98.5 F Pulse Rate 106 H 89 81 Respiratory Rate 18 Blood Pressure 119/84 117/86 123/89 Pulse Oximetry 95 99 95 10/11/17 23:20 10/12/17 03:38 10/12/17 08:00 Temperature 98.9 F 98.7 F 98.9 F Pulse Rate 111 H 105 H 94 H Respiratory Rate 18 Blood Pressure 132/81 121/98 H 121/86 Pulse Oximetry 97 94 L 95 Intake & Output 10/11/17 10/12/17 10/12/17 18:59 06:59 18:59 Intake Total 240 / 240 Output Total 418 / 418 250 / 250 Balance -418 / -418 -10 / -10 Intake: Oral 240 / 240 Output: Urine 250 / 250 Peritoneal Amount 418 / 418 Other: Date of Last Bowel Movement 10/11/17 # Bowel Movements 1 Narrative: GENERAL: Patient lying in bed. Awake, alert. Appears comfortable. SKIN: Warm and dry. HEAD: Normocephalic. EYES: No scleral icterus. No injection or drainage. NECK: Supple, trachea midline. No JVD. CARDIOVASCULAR: Regular rate and rhythm without murmurs, gallops, or rubs. RESPIRATORY: Breath sounds equal bilaterally. No accessory muscle use. GASTROINTESTINAL: Abdomen soft, non-tender, nondistended. No rebound or guarding. Peritoneal dialysis catheter in place with no surrounding erythema or purulence. MUSCULOSKELETAL: No cyanosis, or edema. BACK: Nontender without obvious deformity. No CVA tenderness. Results - Labs CBC & Chem 7: 10/11/17 08:00 10/11/17 08:00 Microbiology 10/10/17 05:55 Blood - Peripheral Aerobic Blood Culture - Preliminary No growth in 1 day 10/10/17 05:55 Blood - Peripheral Anaerobic Blood Culture - Preliminary No growth in 1 day 10/10/17 05:50 Blood - Peripheral Aerobic Blood Culture - Preliminary No growth in 1 day 10/10/17 05:50 Blood - Peripheral Anaerobic Blood Culture - Preliminary No growth in 1 day 10/11/17 07:05 Fluid - Peritoneal fluid Gram Stain - Final Assessment and Plan - Plan //Recurrent seizures in a patient with history of seizure disorderadmit for neurology consultation. Continue with Keppra and place on seizure precautions. Plan EEG. CT of the brain show no acute intracranial abnormality. = Medications adjusted by neurology. Continue to monitor. Appreciate assistance. //Presenting low-grade fever in a patient with immunosuppression HIVwe will send peritoneal fluid for cultures and sensitivity, follow with blood cultures and obtain infectious disease consultation for further recommendations. Patient does not appear to be toxic or septic, will hold off on antibiotics until fluid cultures are obtained. = Infectious disease following. Continue antibiotics. Follow-up peritoneal fluid cultures. Still pending final result. // End-stage renal diseaseresume peritoneal dialysis will consult student recruiter Dr. Solis = Nephrology following. Continue PD. Appreciate assistance //Hypokalemianephrology following. Appreciate assistance for //HIV- resume home medications. Infectious disease following. // DVT prophylaxisnot at increased risk. Discharge Planning: Pending infectious disease and neurology clearance.
[2017-10-12 10:20] LABS: Albumin 3.9 g/dL (3.4-5.0); Calcium 10.2 mg/dL (8.5-10.1); Carbon Dioxide 20.2 meq/L (21.0-32.0); Phosphorus 4.7 mg/dL (2.5-4.9)
--- NOTE | 2017-10-12 10:25 | P.PNNP ---
Subjective Interval history: Reports one seizure yesterday. PD nightly. Mild abdominal pain <Lou Hoffman - Last Filed: 10/12/17 10:20> Physical Exam Vital signs: Vital Signs 10/11/17 12:00 10/11/17 16:00 10/11/17 19:21 Temperature 98.9 F 98.6 F 98.5 F Pulse Rate 106 H 89 81 Respiratory Rate 16 18 18 Blood Pressure 119/84 117/86 123/89 Pulse Oximetry 95 99 95 10/11/17 23:20 10/12/17 03:38 10/12/17 08:00 Temperature 98.9 F 98.7 F 98.9 F Pulse Rate 111 H 105 H 94 H Respiratory Rate 18 18 18 Blood Pressure 132/81 121/98 H 121/86 Pulse Oximetry 97 94 L 95 Intake & Output 10/11/17 10/12/17 10/12/17 18:59 06:59 18:59 Intake Total 240 / 240 Output Total 418 / 418 250 / 250 Balance -418 / -418 -10 / -10 Intake: Oral 240 / 240 Output: Urine 250 / 250 Peritoneal Amount 418 / 418 Other: Date of Last Bowel Movement 10/11/17 # Bowel Movements 1 - Constitutional no acute distress, thin - Routine HEENT Exam Head: Present: normocephalic ENT: Present: mucous membranes moist - Routine Neck Exam Present: supple. Absent: JVD - Routine Respiratory Exam Present: CTA bilaterally. Absent: rales, rhonchi - Routine Cardiovascular Exam Present: RRR - Routine Abdominal Exam Present: soft, normoactive bowel sounds, tenderness - Routine Extremities Exam Present: amputation. Absent: edema - Routine Skin Exam Present: dry, warm - Routine Neurological Exam Present: alert, oriented X3 - Routine Psychiatric Exam Present: cooperative <Lou Hoffman - Last Filed: 10/12/17 10:20> Vital signs: Intake & Output 10/12/17 10/13/17 10/13/17 18:59 06:59 18:59 Output Total 193 / 193 Balance -193 / -193 Output: Peritoneal Amount 193 / 193 <Gelacio Solis - Last Filed: 10/13/17 13:27> Assessment and Plan - Assessment (1) End stage renal disease on dialysis Code(s): N18.6 - End stage renal disease; Z99.2 - Dependence on renal dialysis Status: Acute Plan: End-stage renal disease, on peritoneal dialysis. Continue PD nightly at the same setting what he takes at home for 10 hours. Hypokalemia at 3.0 will replace with 40 MEQ of KCL. Continue Phoslo for hyperphosphatemia. Renal diet. Avoid IVF administration. (2) Seizure Code(s): R56.9 - Unspecified convulsions Status: Acute Plan: Neurology consulted On Keppra and lacosamide added (3) HIV disease Code(s): B20 - Human immunodeficiency virus [HIV] disease Status: Acute Plan: Home medications continued (4) Fever Code(s): R50.9 - Fever, unspecified Status: Acute Plan: ID consulted, cultures pending. BC thus far negative <Lou Hoffman - Last Filed: 10/12/17 10:20> - Assessment (1) End stage renal disease on dialysis Code(s): N18.6 - End stage renal disease; Z99.2 - Dependence on renal dialysis Status: Acute (2) Seizure Code(s): R56.9 - Unspecified convulsions Status: Acute (3) HIV disease Code(s): B20 - Human immunodeficiency virus [HIV] disease Status: Acute (4) Fever Code(s): R50.9 - Fever, unspecified Status: Acute - Attending Attestation Patient seen and examined, agree with above. Has another seizure, Neurology following. Continue same APD. <Gelacio Solis - Last Filed: 10/13/17 13:27>
--- NOTE | 2017-10-12 12:31 | P.PNID ---
Subjective Remarks: Patient feels okay. He denies chills. Headache. He has mild tenderness at the peritoneal catheter site. No erythema at the peritoneal catheter site. All cultures are negative. This is a 26-year-old black male who was brought to the emergency department after having seizures. Consult requested because of fever and seizures. Past Medical History: PAST MEDICAL HISTORY: Kidney failure, HIV disease, lymphoma in remission, chronic peritoneal dialysis, seizure, bilateral [id number] amputation, below left elbow amputation. Allergies/Adverse Reactions: Allergies amoxicillin Allergy (Severe, Verified 10/10/17 04:59) rash all over clindamycin Allergy (Severe, Verified 10/10/17 04:59) Desquamating rash penicillin G Allergy (Severe, Verified 10/10/17 04:59) Anaphylaxis vancomycin Allergy (Severe, Verified 10/10/17 04:59) Desqumating rash Objective Vital Signs 10/11/17 16:00 10/11/17 19:21 10/11/17 23:20 Temperature 98.6 F 98.5 F 98.9 F Pulse Rate 89 81 111 H Respiratory Rate 18 18 18 Blood Pressure 117/86 123/89 132/81 Pulse Oximetry 99 95 97 10/12/17 03:38 10/12/17 08:00 Temperature 98.7 F 98.9 F Pulse Rate 105 H 94 H Respiratory Rate 18 Blood Pressure 121/98 H 121/86 Pulse Oximetry 94 L 95 Intake & Output 10/11/17 10/12/17 10/12/17 18:59 06:59 18:59 Intake Total 240 / 240 Output Total 418 / 418 250 / 250 Balance -418 / -418 -10 / -10 Intake: Oral 240 / 240 Output: Urine 250 / 250 Peritoneal Amount 418 / 418 Other: Date of Last Bowel Movement 10/11/17 # Bowel Movements 1 10/10/17 05:55 Blood - Peripheral Aerobic Blood Culture - Preliminary No growth in 2 days 10/10/17 05:55 Blood - Peripheral Anaerobic Blood Culture - Preliminary No growth in 2 days 10/10/17 05:50 Blood - Peripheral Aerobic Blood Culture - Preliminary No growth in 2 days 10/10/17 05:50 Blood - Peripheral Anaerobic Blood Culture - Preliminary No growth in 2 days 10/11/17 07:05 Fluid - Peritoneal fluid Gram Stain - Final 10/11/17 07:05 Fluid - Peritoneal fluid Body Fluid Culture - Pending Lab - Hematology Results 10/11/17 08:00 WBC 9.0 RBC 4.21 L Hgb 10.9 L Hct 35.0 L MCV 83.2 MCH 26.0 L MCHC 31.2 L RDW 15.9 Plt Count 344 MPV 9.2 Prelim Diff (Auto) Slide review pending Neut % (Auto) 60.4 Lymph % (Auto) 23.7 [place] % (Auto) 12.4 H Eos % (Auto) 2.8 Baso % (Auto) 0.7 Neut # (Auto) 5.4 Lymph # (Auto) 2.1 [place] # (Auto) 1.1 H Eos # (Auto) 0.3 Baso # (Auto) 0.1 WBC Differential Manual diff final Seg Neuts % (Manual) 62 Lymphocytes % (Manual) 28 Monocytes % (Manual) 6 Eosinophils % (Manual) 3 Basophils % (Manual) 1 Abs Neuts (Manual) 5.6 Nucleated RBCs/100 WBC 29 H Differential Comment . Pappenheimer Bodies Present H Target Cells 1+ H [place] Bodies Present H Acanthocytes (Spur) Occ H Lab - Chemistry Results 10/11/17 10/12/17 08:00 09:32 Sodium 136 138 Potassium 3.1 L 3.0 L Chloride 99 101 Carbon Dioxide 20.5 L 20.2 L Anion Gap 17 H 17 H BUN 47 H 44 H Creatinine 7.56 H 7.86 H Estimated GFR 10 L 10 L Random Glucose 88 93 Calcium 9.7 D 10.2 H Phosphorus 4.7 Albumin 3.9 Imaging: ITS Impressions Chest X-Ray 10/10/17 05:44 CONCLUSION: No acute disease Physical Exam: PHYSICAL EXAMINATION: GENERAL: No acute distress. HEENT: The head has a tiny ulceration at the left posterolateral scalp. The upper lip has swelling and no mild erythema. Extraocular movements grossly intact. Pupils reactive to light. No icterus. Oropharynx: Moist mucosa. No lesions. NECK: Supple without adenopathy. LUNGS: Clear breath sounds bilaterally. HEART: Regular S1, S2. No murmurs heard. ABDOMEN: Bowel sounds present. Soft, no tenderness appreciated. Peritoneal dialysis catheter exits the abdomen and has no signs of infection. EXTREMITIES: No clubbing, cyanosis or edema. SKIN: No diffuse rash. NEUROLOGIC: No gross focal finding. PSYCHIATRIC: Calm and cooperative. Assessment and Plan - Plan IMPRESSION: 1. Fever and seizures. The patient with known history of seizure, who has been on Keppra. The peritoneal dialysate fluid does not appear infected. The counts on the fluid sent for analysis was unremarkable. 2. End-stage kidney disease. The patient is receiving peritoneal dialysis. 3. Human immunodeficiency virus disease. Currently on HAART. 4. Upper lip swelling and pain and mild erythema. Clinically stable. RECOMMENDATIONS: 1. Okay to discharge patient on doxycycline p.o. 100 twice a day for 5 days for the upper lip Lesion/infection. Given his immunodeficiency could develop abscess at the lip. 2. Continue the patient's current HIV medications.
[2017-10-12] MEDS: levETIRAcetam 500 MG Tablet PO SCH (13:04)
--- NOTE | 2017-10-12 17:20 | P.DS ---
Date of admission: 10/10/17 09:04 Primary care physician: UNKNOWN Brief History from admission: 26-year-old male with a history of HIV, end-stage renal disease on peritoneal dialysis, seizure disorder represented to the emergency room after he was released earlier last night and had a recurrent seizure in the parking lot. Apparently, patient states that she he had 6 grand mal seizure in the past 3 days 1 causing him to injure his lip causing a small right sided lip laceration. He has been compliant taking his anticonvulsants and he takes 750 mg twice a day of Keppra. In addition, he represented to the emergency room with a fever 100.4. He states that he has not had any symptoms of shortness of breath nor any chills or fever. He does report a dry cough over the few days and had 3 episodes of loose stools 3 days ago which has resolved. He had missed his peritoneal dialysis last night due to being in the emergency room and sees Dr. Solis, wood technologist. He does report some small early abrasion over the right BKA along with having a small wound over the left sided scalp due to his seizure episode. DS: Medications - Discharge Medications Prescriptions: lacosamide [Vimpat] 50 mg PO BID #60 tab DS: Summary Hospital Course: Neurology was consulted. EEG does not show seizure activity. Patient was started on additional seizure medication of Vimpat. Infectious disease was consulted secondary to fever. Culture from peritoneal dialysis returned negative. Patient was cleared for discharge by infectious disease. Patient does have a bite on his lip which is increased risk for infection and he will continue on doxycycline 5 day course for this. Follow-up with infectious disease, nephrology, neurology as outpatient For problem based summary from most recent progress note, please see below. //Recurrent seizures in a patient with history of seizure disorderadmit for neurology consultation. Continue with Keppra and place on seizure precautions. Plan EEG. CT of the brain show no acute intracranial abnormality. = Medications adjusted by neurology. Continue to monitor. Appreciate assistance. //Presenting low-grade fever in a patient with immunosuppression HIVwe will send peritoneal fluid for cultures and sensitivity, follow with blood cultures and obtain infectious disease consultation for further recommendations. Patient does not appear to be toxic or septic, will hold off on antibiotics until fluid cultures are obtained. = Infectious disease following. Continue antibiotics. Follow-up peritoneal fluid cultures. Still pending final result. // End-stage renal diseaseresume peritoneal dialysis will consult wood technologist Dr. Solis = Nephrology following. Continue PD. Appreciate assistance //Hypokalemianephrology following. Appreciate assistance for //HIV- resume home medications. Infectious disease following. // DVT prophylaxisnot at increased risk. - Time Spent with Patient Total time spent providing and/or coordinating discharge services: Greater than 30 minutes - Quality: VTE Deep Vein Thrombosis/Pulmonary Embolism Present on Admission: No Exam Vital signs: Vital Signs 10/11/17 19:21 10/11/17 23:20 10/12/17 03:38 Temperature 98.5 F 98.9 F 98.7 F Pulse Rate 81 111 H 105 H Respiratory Rate 18 18 18 Blood Pressure 123/89 132/81 121/98 H Pulse Oximetry 95 97 94 L 10/12/17 08:00 10/12/17 12:00 Temperature 98.9 F 97.8 F Pulse Rate 94 H 94 H Respiratory Rate 18 18 Blood Pressure 121/86 122/88 Pulse Oximetry 95 96 Intake & Output 10/11/17 10/12/17 10/12/17 18:59 06:59 18:59 Intake Total 240 / 240 Output Total 418 / 418 250 / 250 193 / 193 Balance -418 / -418 -10 / -10 -193 / -193 Intake: Oral 240 / 240 Output: Urine 250 / 250 Peritoneal Amount 418 / 418 193 / 193 Other: Date of Last Bowel Movement 10/11/17 # Bowel Movements 1 Results Procedures completed during hospitalization: Peritoneal dialysis was performed as per nephrology during admission. Labs on day of discharge: Labs from last 24 hours 10/12/17 09:32 Sodium 138 Potassium 3.0 L Chloride 101 Carbon Dioxide 20.2 L Anion Gap 17 H BUN 44 H Creatinine 7.86 H Estimated GFR 10 L Random Glucose 93 Calcium 10.2 H Phosphorus 4.7 Albumin 3.9 Preliminary micro results at discharge 10/11/17 07:05 Body Fluid Culture - Preliminary Fluid - Peritoneal fluid No growth in 24 hours 10/10/17 05:55 Aerobic Blood Culture - Preliminary Blood - Peripheral No growth in 2 days Anaerobic Blood Culture - Preliminary No growth in 2 days 10/10/17 05:50 Aerobic Blood Culture - Preliminary Blood - Peripheral No growth in 2 days Anaerobic Blood Culture - Preliminary No growth in 2 days - Impressions ITS Impressions Chest X-Ray 10/10/17 05:44 CONCLUSION: No acute disease Discharge Plan - Discharge Disposition Patient Disposition: 01 Discharge Home - Discharge Condition Condition: Good - Discharge Order Discharge Orders: Discharge Order (Routine); Ordered 10/12/17 Ordered By: Mingo Barnett - Discharge Details Anticipated Discharge Date: 10/12/17 - Physicians Team Primary Care Provider: UNKNOWN, Attending Provider: Mingo Barnett Other Providers: Shady Agosto MD ; Gelacio Solis MD ; Nora Pepe MD
== END 2017-10-12 18:35 | disposition home or self-care (01) ==
LOC: NEDA 04:35 → NEPE 04:35 → OBSVTOIN 09:04 → NEDA 16:59 → NEPHCDU 17:11
PROVIDERS: ADMIT Internal Medicine; ATTEND Internal Medicine
DX: Z85.72 Personal history of non-Hodgkin lymphomas; Z89.511 Acquired absence of right leg below knee; Z88.0 Allergy status to penicillin; L98.499 Non-pressure chronic ulcer of skin of other sites with unspecified severity; D63.1 Anemia in chronic kidney disease; G40.419 Other generalized epilepsy and epileptic syndromes, intractable, without status epilepticus; Z91.15 Patient's noncompliance with renal dialysis; Z89.212 Acquired absence of left upper limb below elbow; E87.6 Hypokalemia; Z89.512 Acquired absence of left leg below knee; B20 Human immunodeficiency virus [HIV] disease; N18.6 End stage renal disease; S01.511A Laceration without foreign body of lip, initial encounter; Z99.2 Dependence on renal dialysis; E83.39 Other disorders of phosphorus metabolism; Z88.1 Allergy status to other antibiotic agents

== ENCOUNTER 2017-12-12 09:50 | Inpatient (IN) ==
[2017-12-12] MEDS ORDERED: Morphine Sulfate Inj 2 MG/ML Vial IV.PUSH ONE (10:24)
--- NOTE | 2017-12-12 10:34 | ED ---
HPI General Chief complaint: Abdominal Pain Stated complaint: nausea/d Time Seen by Provider: 12/12/17 10:09 Source: patient, family, RN notes reviewed and old records reviewed Mode of arrival: wheelchair History of Present Illness HPI narrative: 27yM presenting with nausea, vomiting, diarrhea, and malfunctioning peritoneal dialysis catheter. The patient has a history of ESRD on nightly peritoneal dialysis at home; he was last able to dialyze himself 2 nights ago, but last night was unable to either flush fluid in or return fluid back. He says that around the same time, he also began to have nausea. This morning, he had 2 episodes of vomiting and 2-3 episodes of watery diarrhea. Denies fever or chills, chest pain, dyspnea, or cough. He still makes some urine and says that he's had mild dysuria x several months. Trapeze Performer is Dr. Solis, PD cath was last revised in 03/[address] Goins. Related Data Home Medications Medication Instructions Recorded Confirmed abacavir 300 mg PO Q12H 10/07/17 12/12/17 calcium acetate 667 mg PO TID 10/07/17 12/12/17 famotidine 20 mg PO DAILY 10/07/17 12/12/17 lamivudine 150 mg PO DAILY 10/07/17 12/12/17 levetiracetam [Keppra] 750 mg PO Q12H 10/07/17 12/12/17 ondansetron HCl [Zofran] 4 mg PO TID PRN 10/07/17 12/12/17 ritonavir 100 mg PO BID 10/07/17 12/12/17 Previous Rx's Medication Instructions Recorded lacosamide [Vimpat] 50 mg PO BID #60 tab 10/12/17 Allergies Allergy/AdvReac Type Severity Reaction Status Date / Time amoxicillin Allergy Severe rash all Verified 10/10/17 04:59 over clindamycin Allergy Severe Desquamating Verified 10/10/17 04:59 rash penicillin G Allergy Severe Anaphylaxis Verified 10/10/17 04:59 vancomycin Allergy Severe Desqumating Verified 10/10/17 04:59 rash Review of Systems ROS: all other systems reviewed are negative Constitutional Denies fever(s) Eyes Denies blurry vision ENT Denies nasal congestion Cardiovascular Denies chest pain Respiratory Denies cough Gastrointestinal Reports diarrhea, Reports nausea and Reports vomiting Genitourinary Denies dysuria Musculoskeletal Denies back pain Neurologic Denies confusion Psychiatric Denies confusion PMFSH History History Provided By: Patient Medical History Medical History Lymphoma in remission (Acute) Seizures (Acute) Peritoneal dialysis catheter in place (Acute) 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 (Acute) S/P BKA (below knee amputation) bilateral (Acute) HIV (human immunodeficiency virus infection) (Acute) Kidney failure (Acute) Peritoneal dialysis catheter in place (Acute) Family History Family History Mother HIV (human immunodeficiency virus infection) Social History Social History Substance History: Active Abuse Second Hand Smoke Exposure: No Smoking Status: Never smoker Tobacco Type: Cigarettes How Often Do You Have a Drink Containing Alcohol: Never Recent Travel in [facility] within the Last 8 Weeks: No Recent Out of Country Travel within the Last 8 Weeks: No Exam Const General: no acute distress and frail appearing HENMI Head: normocephalic and atraumatic Face and sinus: normal facial exam Eyes General: appearance normal, both eyes and all related structures Pupils: PERRL Chest Chest: normal inspection of the chest Resp Effort & Inspection: normal respiratory effort Auscultation: no rhonchi and no wheezes Cardio Rate: regular rate Rhythm: regular rhythm GI Other: PD cath present in right upper abdomen, dressing C/D/I Abdomen soft, minimally distended, non-tender throughout, no guarding or rebound Skin General: no rashes or lesions noted Neuro General: alert, awake, oriented x3 and no focal motor deficits Extrem Other: Left arm amputation (below elbow) Bilateral lower extremity below knee amputations Psych Affect: normal affect Course Consultations Consultation #1: CT scan shows PD catheter coiled in RLQ. Case discussed with Dr. Lujan of general surgery, who will consult and says the patient does not need emergent revision today but may need alternate HD access in the interim. Time: 12:35 Consultation #2: Case discussed with Dr. Solis of nephrology, who will consult. Time: 12:51 Initial Documented Vital Signs Temperature 98 F 12/12/17 09:59 Pulse Rate 80 12/12/17 09:59 Respiratory Rate 18 12/12/17 09:59 Blood Pressure 112/73 12/12/17 09:59 Pulse Oximetry 99 12/12/17 09:59 Last Documented Vital Signs Temperature 98 F 12/12/17 09:59 Pulse Rate 74 12/12/17 11:00 Respiratory Rate 16 12/12/17 11:00 Blood Pressure 118/73 12/12/17 11:00 Pulse Oximetry 98 12/12/17 11:00 Medical Decision Making MDM Narrative Medical decision making narrative: Assessment: 27yM presenting with PD catheter problem, N/V/D Plan: EKG and monitor Labs, including lytes CT abd/ pelvis UA if able to provide specimen Addendum: Patient's potassium 3.6, phos elevated at 7, Mg normal; CT scan shows coiled PD catheter in RLQ. Case discussed with Dr. Lopez of [facility] and nephrology / gen surg (see "consults" section above). This patient cannot be discharged as he needs revision of his PD catheter and specialist consultation; patient understands and agrees. Medical Screen Exam Complete: Yes Emergency Medical Condition: Yes Differential Diagnosis Differential Diagnosis: Differential diagnosis includes, but is not limited to: PD catheter obstruction or malpositioning, electrolyte abnormality, uremia, gastritis, pancreatitis, colitis, UTI Medical Records Medical records reviewed: Yes I reviewed the patient's medical records. Lab Data Lab results reviewed: Yes I reviewed the patient's lab results. Result diagrams: 12/12/17 10:26 12/12/17 10:28 Lab Results 12/12/17 12/12/17 Range/Units 10:26 10:28 WBC 8.6 (4.0-11.0) th/mm3 RBC 4.28 L (4.50-5.90) mil/mm3 Hgb 11.6 L (13.0-17.0) gm/dL Hct 37.1 L (39.0-51.0) % MCV 86.5 (80.0-100.0) fL MCH 27.0 (27.0-34.0) pg MCHC 31.2 L (32.0-36.0) % RDW 17.1 (11.6-17.2) % Plt Count 399 (150-450) th/mm3 MPV 8.7 (7.0-11.0) fL Prelim Diff (Auto) Slide review pending Neut % (Auto) 53.0 (16.0-70.0) % Lymph % (Auto) 25.8 (9.0-44.0) % [place] % (Auto) 13.0 H (0.0-8.0) % Eos % (Auto) 7.5 H (0.0-4.0) % Baso % (Auto) 0.7 (0.0-2.0) % Neut # (Auto) 4.5 (1.8-7.7) th/mm3 Lymph # (Auto) 2.2 (1.0-4.8) th/mm3 [place] # (Auto) 1.1 H (0.0-0.9) th/mm3 Eos # (Auto) 0.6 H (0.0-0.4) th/mm3 Baso # (Auto) 0.1 (0.0-0.2) th/mm3 WBC Differential Manual diff final Seg Neuts % (Manual) 42 (16-70) % Lymphocytes % (Manual) 29 (9-44) % Monocytes % (Manual) 20 H (0-8) % Eosinophils % (Manual) 7 H (0-4) % Basophils % (Manual) 2 (0-2) % Abs Neuts (Manual) 3.6 (1.8-7.7) th/mm3 Nucleated RBCs/100 WBC 27 H (0-0) /100 WBC Differential Comment . Toxic Granulation 1+ H (None) Platelet Estimate High H (Normal) Platelet Morphology Clumped H (Normal) Basophilic Stippling Faint H (None) Target Cells 1+ H (None) Ovalocytes 1+ H (None) [place] Bodies Present H (None) Sodium 137 (136-145) meq/L Potassium 3.6 (3.5-5.1) meq/L Chloride 102 (98-107) meq/L Carbon Dioxide 21.9 (21.0-32.0) meq/L Anion Gap 13 (5-15) meq/L BUN 87 H (7-18) mg/dL Creatinine 11.03 H* (0.60-1.30) mg/dL Estimated GFR 7 L (>89) mL/min Random Glucose 85 (74-106) mg/dL Calcium 6.9 L* (8.5-10.1) mg/dL Prot Corrected Calcium (8.5-10.1) mg/dL Phosphorus 7.0 H (2.5-4.9) mg/dL Magnesium 3.1 H (1.5-2.5) mg/dL Total Bilirubin 0.2 (0.2-1.0) mg/dL AST 32 (15-37) U/L ALT 32 (12-78) U/L Alkaline Phosphatase 61 (45-117) U/L Total Protein 8.6 H (6.4-8.2) g/dL Albumin 4.0 (3.4-5.0) g/dL Lipase 322 (73-393) U/L Imaging Data Radiologist's impression: Abdomen/Pelvis CT 12/12/17 10:22 CONCLUSION: 1. Cholelithiasis. 2. Splenectomy. 3. Atherosclerosis. ECG Data Attestation: I personally reviewed and interpreted this ECG as follows: Interpretation: Rate: 63 BPM Rhythm: Sinus [place]: Normal Intervals: 1st degree AV block, QTc 500 ms Q waves: None T waves: Upright, no inversions ST segments: No elevations or depressions Impression: 1st degree AV block, long QTc, both of which are new when compared to EKG from 10/07/2017. Discharge Plan Discharge Disposition Patient Disposition: 30 Still Patient Discharge Condition Condition: Stable Discharge Details Diagnosis: Peritoneal dialysis catheter dysfunction, End stage renal disease on dialysis, Nausea & vomiting Physicians Team ED Provider: Radha Jonas Primary Care Provider: UNKNOWN, Rxs /Orders / Referrals /Forms Prescriptions: No Action levetiracetam [Keppra] 750 mg Tablet 750 mg PO Q12H RF: 0 ondansetron HCl [Zofran] 4 mg Tablet 4 mg PO TID PRN (Reason: Nausea) RF: 0 famotidine 20 mg Tablet 20 mg PO DAILY RF: 0 lamivudine 150 mg Tablet 150 mg PO DAILY RF: 0 abacavir 300 mg Tablet 300 mg PO Q12H RF: 0 calcium acetate 667 mg Capsule 667 mg PO TID RF: 0 ritonavir 100 mg Tablet 100 mg PO BID RF: 0 lacosamide [Vimpat] 50 mg Tablet 50 mg PO BID Qty: 60 RF: 0 Discharge Interventions Interventions: Vital Signs Last Done: 12/12/17 11:00 Status ED Status: With Doctor
[2017-12-12 10:55] LABS: Baso # (Auto) 0.1 th/mm3 (0.0-0.2); Baso % (Auto) 0.7 % (0.0-2.0); Eos # (Auto) 0.6 th/mm3 (0.0-0.4); Eos % (Auto) 7.5 % (0.0-4.0); Hematocrit 37.1 % (39.0-51.0); Hemoglobin 11.6 gm/dL (13.0-17.0); Lymph # (Auto) 2.2 th/mm3 (1.0-4.8); Lymph % (Auto) 25.8 % (9.0-44.0); Mean Corpuscular HGB Conc 31.2 % (32.0-36.0); Mean Corpuscular Volume 86.5 fL (80.0-100.0); Mean Platelet Volume 8.7 fL (7.0-11.0); Mono # (Auto) 1.1 th/mm3 (0.0-0.9); Neut # (Auto) 4.5 th/mm3 (1.8-7.7); Platelet Count 399 th/mm3 (150-450); Red Blood Count 4.28 mil/mm3 (4.50-5.90); Red Cell Distribution Width 17.1 % (11.6-17.2); White Blood Count 8.6 th/mm3 (4.0-11.0)
[2017-12-12 11:16] LABS: Carbon Dioxide 21.9 meq/L (21.0-32.0); Magnesium 3.1 mg/dL (1.5-2.5); Potassium 3.6 meq/L (3.5-5.1)
[2017-12-12 11:18] LABS: Total Protein 8.6 g/dL (6.4-8.2)
[2017-12-12 11:20] LABS: Calcium 6.9 mg/dL (8.5-10.1)
[2017-12-12 11:54] LABS: Eosinophils 7 % (0-4); Howell-Jolly Bodies Present; Lymphocytes 29 % (9-44); Monocytes 20 % (0-8); Tallied Nucleated RBC 27 (0-0); Target Cells 1+
[2017-12-12 11:55] LABS: Ovalocytes 1+; Platelet Morphology Clumped (Normal); Toxic Granulation 1+
--- NOTE | 2017-12-12 12:02 | CT ---
EXAM DATE: 12/12/2017 11:55 AM EDT AGE/SEX: 27 years / Male INDICATIONS: Abdominal pain, nausea and vomiting. CLINICAL DATA: This is the patient's initial encounter. Patient reports that signs and symptoms have been present for 1 day and indicates a pain score of 7/10. MEDICAL/SURGICAL HISTORY: HIV. Lymphoma. Kidney failure. . Bilateral below knee amputation, Left sided below elbow amputation. RADIATION DOSE: 6.64 CTDI (mGy) COMPARISON: [facility] [place], CT ABDOMEN & PELVIS W/O CONTRAST, 08/09/2017. . TECHNIQUE: Multiple contiguous axial images were obtained through the abdomen. Images were obtained using multiple row detector helical technique. Using automated exposure control and adjustment of the mA and/or kV according to patient size, radiation dose was kept as low as reasonably achievable to o btain optimal diagnostic quality images. DICOM format image data is available electronically for rev iew and comparison. FINDINGS: Lung bases are clear. Osseous structures are intact. There is a dialysis catheter coiled in the right lower quadrant. No pleural or pericardial effusions are seen. Cholelithiasis is noted. Liver, pancre as, adrenal glands, stomach unremarkable. The kidneys are small. There is no hydronephrosis. Findings of previous splenectomy. Urinary bladder and prostate are unremarkable. There is no evidence of carlos l obstruction. Appendix normal. Atherosclerotic calcifications of the aorta and iliac vessels are see n. No adenopathy or aneurysm. CONCLUSION: 1. Cholelithiasis. 2. Splenectomy. 3. Atherosclerosis. Electronically signed by: Chris Goldberg MD 12/12/2017 12:01 PM EDT
[2017-12-12 13:21] LABS: Bacteria,Urine Many /hpf; Bilirubin,Urine Negative (Negative); Clarity,Urine Clear (Clear); Color,Urine Straw (Yellw/Straw); Glucose,Urine (UA) 50 mg/dL (Negative); Leukocyte Esterase,Urine Negative (Negative); Nitrite,Urine Negative (Negative); Specific Gravity,Urine 1.009 (1.002-1.035); Squamous Epithelial Cell,Urine 1 /hpf (0-5)
--- NOTE | 2017-12-12 13:31 | P.HPIM ---
History of Present Illness Primary Care Physician: UNKNOWN History of Present Illness: Mr. Yu is a 27 year old male with a history of Chronic Renal Failure, dependent on peritoneal dialysis. He came in secondary to dysfunction of his peritoneal dialysis catheter. He was told by nurse over the phone to try flushing with heparin and he has tried this at home, but this did not work. Symptoms reported are an episode of diarrhea this morning and nausea with some vomiting this morning. Presently he has no recurrence of diarrhea and no nausea when seen. Etiology for his nausea, vomiting, and diarrhea could have been related to electrolyte disturbances. He has hypermagnesemia and hyperphosphatemia. Additionally he has severe hypo-calcium. No other complaints today. Review of Systems Constitutional: No fevers, no chills no night sweats, no fatigue, no weakness Eyes: No eye pain, no blurry vision, no loss of vision ENT: No sore throat, no ear pain, no rhinorrhea Cardiovascular: No chest pain, no tachycardia, no palpitations, no shortness of breath, no syncope Respiratory: No wheezing, no cough, no shortness of breath Gastrointestinal: No abdominal pain, no black tarry stools, no bright red blood per rectum, nausea/vomiting, diarrhea Musculoskeletal: No joint pain, no muscle cramps, no stiffness Integumentary: No rash, no ulcers, no drainage Neurologic: No sensory loss, no loss of motor function, no dizziness Psychiatric: No behavioral changes, no hallucinations, no suicidal ideations Other: Obstructed peritoneal dialysis catheter PMFSH - History History Provided By: Patient - Medical History Medical History: Medical History (Last Updated 12/12/17 @ 13:26 by Shaquille Lopez MD) Lymphoma in remission (Acute) Seizures (Acute) Peritoneal dialysis catheter in place (Acute) 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 (Acute) S/P BKA (below knee amputation) bilateral (Acute) HIV (human immunodeficiency virus infection) (Acute) Kidney failure (Acute) Peritoneal dialysis catheter dysfunction Peritoneal dialysis catheter fitting or adjustment Peritoneal dialysis catheter in place - Family History Family History: Family History (Last Reviewed 12/12/17 @ 10:40 by Rdaha Jonas DO) Mother HIV (human immunodeficiency virus infection) - Tobacco History Second Hand Smoke Exposure: No Tobacco Use In Past 30 Days: No Smoking Status: Never smoker Tobacco Type: Cigarettes - Alcohol History How Often Do You Have a Drink Containing Alcohol: Never - Substance Use History Substance History: Active Abuse - Travel History Recent Travel in the [place] Within the Last 8 Weeks: No Recent Travel Out of the Country Within the Last 8 Weeks: No - Immunization History Tetanus Immunization: Unsure Hx Influenza Vaccine This Season: Yes Medications and Allergies Active Medications: Active Medications Al Hydroxide/Mg Hydroxide (Milk Of David Dossq) 30 ml PO Q12H PRN PRN Reason: Mild Constipation Sodium Chloride (Ns Inj) 1,000 mls @ 50 mls/hr IV.CONT .Q20H MARIANA Ondansetron HCl (Zofran Inj) 4 mg IV.PUSH Q6H PRN PRN Reason: NAUSEA OR VOMITING Sodium Chloride (Ns Flush) 2 ml IV.FLUSH PRN PRN PRN Reason: FLUSH AFTER USING IV ACCESS Last Admin: 12/12/17 10:33 Dose: 2 ml Allergies Allergy/AdvReac Type Severity Reaction Status Date / Time amoxicillin Allergy Severe rash all Verified 10/10/17 04:59 over clindamycin Allergy Severe Desquamating Verified 10/10/17 04:59 rash penicillin G Allergy Severe Anaphylaxis Verified 10/10/17 04:59 vancomycin Allergy Severe Desqumating Verified 10/10/17 04:59 rash Home Medications Medication Instructions Recorded Confirmed Type abacavir 300 mg PO Q12H 10/07/17 12/12/17 History calcium acetate 667 mg PO TID 10/07/17 12/12/17 History famotidine 20 mg PO DAILY 10/07/17 12/12/17 History lamivudine 150 mg PO DAILY 10/07/17 12/12/17 History levetiracetam [Keppra] 750 mg PO Q12H 10/07/17 12/12/17 History ondansetron HCl [Zofran] 4 mg PO TID PRN 10/07/17 12/12/17 History ritonavir 100 mg PO BID 10/07/17 12/12/17 History Exam Vital signs: Vital Signs 12/12/17 09:59 12/12/17 11:00 Temperature 98 F Pulse Rate 80 74 Respiratory Rate 18 16 Blood Pressure 112/73 118/73 Pulse Oximetry 99 98 Intake & Output 12/11/17 12/12/17 12/12/17 18:59 06:59 18:59 Weight 105 kg Narrative: GENERAL: NAD, A&Ox3 HEAD: Normocephalic. NECK: Supple, trachea midline. No lymphadenopathy. EYES: No scleral icterus. No injection or drainage. CARDIOVASCULAR: Regular rate and rhythm without murmurs, gallops, or rubs. RESPIRATORY: Breath sounds equal bilaterally. No accessory muscle use. GASTROINTESTINAL: Abdomen soft, non-tender, nondistended. MUSCULOSKELETAL: No cyanosis, or edema. Bilateral lower extremity amputation, chronic. Left upper extremity amputation, chronic. SKIN: Warm and dry. NEURO: No focal neurological deficits. Results - Labs CBC & Chem 7: 12/12/17 10:26 12/12/17 10:28 Labs: Short CBC 12/12/17 Range/Units 10:26 WBC 8.6 (4.0-11.0) th/mm3 Hgb 11.6 L (13.0-17.0) gm/dL Hct 37.1 L (39.0-51.0) % Plt Count 399 (150-450) th/mm3 BMP 12/12/17 10:28 Sodium 137 Potassium 3.6 Chloride 102 Carbon Dioxide 21.9 BUN 87 H Creatinine 11.03 H* Calcium 6.9 L* Liver Function 12/12/17 Range/Units 10:28 Total Bilirubin 0.2 (0.2-1.0) mg/dL AST 32 (15-37) U/L ALT 32 (12-78) U/L Alkaline Phosphatase 61 (45-117) U/L Albumin 4.0 (3.4-5.0) g/dL Urine 12/12/17 Range/Units 12:55 Urine Color Straw (Yellw/Straw) Urine Clarity Clear (Clear) Urine pH 5.0 (5.0-8.5) Ur Specific [place] 1.009 (1.002-1.035) Urine Protein 100 H (Neg-Trace) mg/dL Urine Glucose (UA) 50 (Negative) mg/dL - Imaging Impressions Abdomen/Pelvis CT 12/12/17 10:22 CONCLUSION: 1. Cholelithiasis. 2. Splenectomy. 3. Atherosclerosis. Caprini VTE Risk Assessment Caprini VTE Risk Assessment: No/Low Risk (score <= 1) Caprini Risk Assessment Model: Point Value = 1 Point Value = 2 Point Value = 3 Point Value = 5 Age 41-60 Minor surgery BMI > 25 kg/m2 Swollen legs Varicose veins or History of unexplained or recurrent spontaneous Oral contraceptives or hormone replacement Sepsis (< 1 month) Serious lung disease, including pneumonia (< 1 month) Abnormal pulmonary function Acute myocardial infarction Congestive heart failure (< 1 month) History of inflammatory bowel disease Medical patient at bed rest Age 61-74 Arthroscopic surgery Major open surgery (> 45 min) Laparoscopic surgery (> 45 min) Malignancy Confined to bed (> 72 hours) Immobilizing plaster cast Central venous access Age >= 75 History of VTE Family history of VTE Factor V Leiden Prothrombin [id number] Lupus anticoagulant Anticardiolipin antibodies Elevated serum homocysteine Heparin-induced thrombocytopenia Other congenital or acquired thrombophilia Stroke (< 1 month) Elective arthroplasty Hip, pelvis, or leg fracture Acute spinal cord injury (< 1 month) Prophylaxis Regimen: Total Risk Factor Score Risk Level Prophylaxis Regimen 0-1 Low Early ambulation 2 Moderate Order ONE of the following: *Sequential Compression Device (SCD) *Heparin 5000 units SQ BID 3-4 Higher Order ONE of the following medications: *Heparin 5000 units SQ TID *Enoxaparin/Lovenox 40 mg SQ daily (WT < 150 kg, CrCl > 30 mL/min) *Enoxaparin/Lovenox 30 mg SQ daily (WT < 150 kg, CrCl > 10-29 mL/min) *Enoxaparin/Lovenox 30 mg SQ BID (WT < 150 kg, CrCl > 30 mL/min) AND/OR *Sequential Compression Device (SCD) 5 or more Highest Order ONE of the following medications: *Heparin 5000 units SQ TID (Preferred with Epidurals) *Enoxaparin/Lovenox 40 mg SQ daily (WT < 150 kg, CrCl > 30 mL/min) *Enoxaparin/Lovenox 30 mg SQ daily (WT < 150 kg, CrCl > 10-29 mL/min) *Enoxaparin/Lovenox 30 mg SQ BID (WT < 150 kg, CrCl > 30 mL/min) AND *Sequential Compression Device (SCD) Assessment and Plan - Plan 27-year-old male admitted secondary to acute renal failure with symptoms of nausea and an elevated creatinine in the presence of peritoneal dialysis catheter dysfunction acute peritoneal dialysis catheter dysfunction Acute renal failure on chronic renal failure Severe hypokalemia Hyperphosphatemia Hypomagnesia Nephrology consult Surgical consult Plan to revise/fix peritoneal dialysis catheter Monitor electrolytes Follow on telemetry N.p.o. after midnight for procedure As needed morphine sulfate for pain. 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
[2017-12-12] MEDS ORDERED: Morphine Inj 4 MG/ML Vial IV.PUSH PRN ×2 (13:52)
[2017-12-12] MEDS: Calcium Acetate 667 MG Capsule PO SCH (17:09)
[2017-12-12] MEDS ORDERED: fentaNYL Citrate Inj 250 MCG/5 ML Ampul ONE (18:08)
[2017-12-12] MEDS ORDERED: Iohexol 350 MG/ML 50 ML Vial (for Rad Diag) IVCONTRAST ONE (18:30)
--- NOTE | 2017-12-12 18:30 | P.RAD ---
Post Procedure Progress Note - Pre Procedure Diagnosis (1) Peritoneal dialysis catheter dysfunction - Post Procedure Diagnosis (1) Peritoneal dialysis catheter dysfunction - Procedure Information Procedure Date: 12/12/17 Supervising Radiologist: Colton Friend Jr, MD Proceduralist/Assist: ventura richey Anesthesia: Other - Plan of Activity Patient to Unit: Nursing Unit Patient Condition: Good Additional Comments: PD catheter not allowing infusion or withdrawal per report. Injection of contrast shows catheter coiled in RLQ. Unable to withdraw. A wire was utilized to move the position of the catheter into the RUQ. Aspiration withdrew a large fibrin sheath from the catheter. Infusion now brisk but aspiration still somewhat limited. If continued dysfunction, then surgical revision will be needed. See PACS Report for procedural detail/treatment.
[2017-12-12] MEDS: levETIRAcetam 250 MG Tablet PO SCH (21:12)
--- NOTE | 2017-12-12 21:19 | MB ---
cc: Gibson Lujan MD DATE: 12/12/2017 PHYSICIAN REQUESTING CONSULTATION: Dr. Shaquille Lopez. REASON FOR CONSULTATION: Malfunctioning peritoneal dialysis catheter. HISTORY OF PRESENT ILLNESS: The patient is a 27-year-old male with history of diabetes, end-stage renal disease, who was undergoing peritoneal dialysis at home when he presented to the emergency department for complaints of malfunctioning catheter. The patient states that last night he tried to access the catheter and flush it; however, was unable to flush the catheter or get any return from it. The patient underwent PD catheter placement by Dr. Goins several months ago. The patient's slunk skinner is Dr. Solis. The patient is being admitted to the hospital for evaluation by nephrology, possible dialysis, although is stable at this time. General surgery was asked to see the patient for opinion about the dialysis catheter. The patient currently is undergoing study of the catheter by interventional radiology. REVIEW OF SYSTEMS: A 12-point review of systems conducted with the patient is negative, except the pertinent positives mentioned in the history of present illness. PAST MEDICAL HISTORY: History of lymphoma, history of seizures, HIV, chronic renal failure, peritoneal dialysis. PAST SURGICAL HISTORY: Bilateral below-knee amputations, left upper extremity below-elbow amputation. ALLERGIES: AMOXICILLIN, CLINDAMYCIN, PENICILLIN-G, VANCOMYCIN. MEDICATIONS: Antiretrovirals, Zofran, Keppra. SOCIAL HISTORY: The patient has a history of substance abuse. Denies alcohol or tobacco use. FAMILY HISTORY: Mother has a history of HIV. PHYSICAL EXAMINATION: VITAL SIGNS: Temperature 97.4 degrees, pulse 56, blood pressure 127/88, O2 saturation 98% on room air. GENERAL: A thin, male in no acute distress. HEENT: Head is normocephalic, atraumatic. Pupils are round, reactive. Sclerae are anicteric. Oral cavity is clear. Airway is patent. NECK: Supple. No JVD. LUNGS: Breath sounds present bilaterally. Nonlabored breathing pattern. HEART: Regular rate and rhythm. ABDOMEN: Soft and nontender to palpation. No ascites. No organomegaly. Normal bowel sounds. Peritoneal dialysis catheter site is clean, dry, and intact, healed well without signs of infection in the right upper abdomen. Catheter appears to have some simple fluid in the catheter. There is no sign of fracture of the catheter or problem or malfunction. EXTREMITIES: Status post multiple extremity amputations. NEUROLOGIC: The patient is agitated and seems to be in a bad mood today. He does answer questions appropriately and is cooperative. Cranial nerve 2-12 are grossly intact. He is alert and oriented x 3. LABORATORY VALUES: White blood cell count 8.6, hemoglobin 11.6. Creatinine is 11, potassium is 3.6. IMAGING: CT scan shows this catheter in the right lower quadrant without any acute process. ASSESSMENT AND PLAN: The patient is a 27-year-old male with a malfunctioning PD catheter. I recommend that the patient undergo evaluation of this catheter by interventional radiology as there is no sign of infection and it may just need to be repositioned or declotted potentially. The site seems good and I think attempt at salvage of this catheter should be attempted and there was also no sign of any infection. If the patient is unable to have this cleared, he will need dialysis by another means, either dialysis catheter or possibly revision of his catheter electively. Thank you very much for this consultation. We will follow along with the patient. Gibson Lujan MD AWG/hernán , 05:55 PM , 06:05 PM
[2017-12-12] MEDS: Lacosamide 50 MG Tablet PO SCH (21:49)
--- NOTE | 2017-12-12 22:02 | ECG ---
Date Performed: 12/12/2017 Time Performed: 12:58:59 PTAGE: 27 years EKG: Sinus rhythm WITH FIRST DEGREE AV BLOCK POSSIBLE LEFT ATRIAL ENLARGEMENT POSSIBLE LEFT VENTRICULAR HYPERTROPHY KS OLONGED QT INTERVAL ABNORMAL ECG PREVIOUS TRACING : 10/07/2017 20.29 DOCTOR: Noel Cortez Interpretating Date/Time 12/12/2017 21:58:58
[2017-12-13] MEDS: Sod Chloride 0.9% Inj 1,000 ML IV.CONT SCH ×2 (00:11→21:33)
[2017-12-13 05:59] LABS: Hematocrit 39.1 % (39.0-51.0); Hemoglobin 12.3 gm/dL (13.0-17.0); Mean Corpuscular HGB Conc 31.6 % (32.0-36.0); Mean Corpuscular Volume 85.4 fL (80.0-100.0); Mean Platelet Volume 9.2 fL (7.0-11.0); Platelet Count 385 th/mm3 (150-450); Red Blood Count 4.58 mil/mm3 (4.50-5.90); Red Cell Distribution Width 17.5 % (11.6-17.2); White Blood Count 8.7 th/mm3 (4.0-11.0)
[2017-12-13 06:29] LABS: Albumin 3.6 g/dL (3.4-5.0); Calcium 6.6 mg/dL (8.5-10.1); Carbon Dioxide 19.4 meq/L (21.0-32.0); Magnesium 2.9 mg/dL (1.5-2.5); Phosphorus 6.9 mg/dL (2.5-4.9); Potassium 3.1 meq/L (3.5-5.1); Total Protein 8.1 g/dL (6.4-8.2)
[2017-12-13 08:30] LABS: Eosinophils 12 % (0-4); Lymphocytes 36 % (9-44); Monocytes 6 % (0-8); Platelet Estimate Normal (Normal); Platelet Morphology Normal (Normal); Tallied Nucleated RBC 30 (0-0)
[2017-12-13 08:31] LABS: Howell-Jolly Bodies Present; Target Cells 1+
[2017-12-13 08:32] LABS: Ovalocytes 1+
[2017-12-13] MEDS: Famotidine 20 MG Tablet PO SCH (08:54)
[2017-12-13] MEDS: Calcium Acetate 667 MG Capsule PO SCH ×4 (08:54→17:33)
[2017-12-13] MEDS: Lacosamide 50 MG Tablet PO SCH ×2 (08:54→21:32)
[2017-12-13] MEDS: levETIRAcetam 250 MG Tablet PO SCH ×2 (08:55→21:32)
[2017-12-13] MEDS ORDERED: Heparin 10,000 UNITS/10 ML Vial (for IV use) OTHER PRN (11:14)
--- NOTE | 2017-12-13 11:22 | P.PNIM ---
Subjective Interval history: Is upset that she he still here. He is tired of answering the same questions from multiple physicians. Did not try to converse with me further. Physical Exam Vital signs: Vital Signs 12/12/17 14:56 12/12/17 15:15 12/12/17 16:00 Temperature 97.4 F L 97.4 F L Pulse Rate 66 66 66 Respiratory Rate 24 18 18 Blood Pressure 120/76 127/88 127/88 Pulse Oximetry 98 98 12/12/17 20:00 12/13/17 00:00 12/13/17 00:39 Temperature 97.8 F 97.6 F Pulse Rate 65 65 66 Respiratory Rate 17 17 Blood Pressure 120/87 125/87 Pulse Oximetry 99 93 L 12/13/17 04:28 12/13/17 08:00 Temperature 98.9 F 98.3 F Pulse Rate 74 66 Respiratory Rate 17 17 Blood Pressure 115/81 114/69 Pulse Oximetry 100 97 Intake & Output 12/12/17 12/13/17 12/13/17 18:59 06:59 18:59 Intake Total 0 / 0 Output Total 200 / 200 500 / 500 Balance -200 / -200 -500 / -500 Weight 43.01 kg 43 kg Intake: Oral 0 / 0 Output: Urine 200 / 200 500 / 500 Other: Date of Last Bowel Movement 12/12/17 12/12/17 # Bowel Movements 0 Narrative: GENERAL: This is a well-nourished, well-developed patient, in no apparent distress not cooperative with my exam and further conversation. I am only able to do a cardiovascular and lung exam CARDIOVASCULAR: Regular rate and rhythm RESPIRATORY: Clear to auscultation. Breath sounds equal bilaterally. No wheezes , rales, or rhonchi. Results - Labs CBC & Chem 7: 12/13/17 04:29 12/13/17 04:29 Laboratory Results - last 24 hr 12/12/17 12/12/17 12/12/17 10:26 10:28 12:55 WBC RBC Hgb Hct MCV MCH MCHC RDW Plt Count MPV Prelim Diff (Auto) WBC Differential Manual diff final Seg Neuts % (Manual) 42 Lymphocytes % (Manual) 29 Monocytes % (Manual) 20 H Eosinophils % (Manual) 7 H Basophils % (Manual) 2 Abs Neuts (Manual) 3.6 Nucleated RBCs/100 WBC 27 H Differential Comment Toxic Granulation 1+ H Platelet Estimate High H Platelet Morphology Clumped H Basophilic Stippling Faint H Target Cells 1+ H Ovalocytes 1+ H [place] Bodies Present H Sodium 137 Potassium 3.6 Chloride 102 Carbon Dioxide 21.9 Anion Gap 13 BUN 87 H Creatinine 11.03 H* Estimated GFR 7 L Random Glucose 85 Calcium 6.9 L* Prot Corrected Calcium Phosphorus 7.0 H Magnesium 3.1 H Total Bilirubin 0.2 AST 32 ALT 32 Alkaline Phosphatase 61 Total Protein 8.6 H Albumin 4.0 Lipase 322 Urine Color Straw Urine Clarity Clear Urine pH 5.0 Ur Specific [place] 1.009 Urine Protein 100 H Urine Glucose (UA) 50 Urine Ketones Negative Urine Occult Blood Small H Urine Nitrate Negative Urine Bilirubin Negative Urine Urobilinogen Less than 2 Ur Leukocyte Esterase Negative Urine RBC Less than 1 Urine WBC 2 Ur Squamous Epith Cells 1 Urine Bacteria Many H Micro UA Comment Culture indicated Ur Microscopic Review Not Reportable Urine Culture Comments Culture indicated 12/13/17 12/13/17 04:29 04:29 WBC 8.7 RBC 4.58 Hgb 12.3 L Hct 39.1 MCV 85.4 MCH 27.0 MCHC 31.6 L RDW 17.5 H Plt Count 385 MPV 9.2 Prelim Diff (Auto) Manual diff required WBC Differential Manual diff final Seg Neuts % (Manual) 46 Lymphocytes % (Manual) 36 Monocytes % (Manual) 6 Eosinophils % (Manual) 12 H Basophils % (Manual) Abs Neuts (Manual) 4.0 Nucleated RBCs/100 WBC 30 H Differential Comment . Toxic Granulation Platelet Estimate Normal Platelet Morphology Normal Basophilic Stippling Target Cells 1+ H Ovalocytes 1+ H [place] Bodies Present H Sodium 140 Potassium 3.1 L Chloride 104 Carbon Dioxide 19.4 L Anion Gap 17 H BUN 80 H Creatinine 10.23 H* Estimated GFR 7 L Random Glucose 67 L Calcium 6.6 L* Prot Corrected Calcium 6.2 L* Phosphorus 6.9 H Magnesium 2.9 H Total Bilirubin 0.3 AST 21 ALT 26 Alkaline Phosphatase 60 Total Protein 8.1 Albumin 3.6 Lipase Urine Color Urine Clarity Urine pH Ur Specific [place] Urine Protein Urine Glucose (UA) Urine Ketones Urine Occult Blood Urine Nitrate Urine Bilirubin Urine Urobilinogen Ur Leukocyte Esterase Urine RBC Urine WBC Ur Squamous Epith Cells Urine Bacteria Micro UA Comment Ur Microscopic Review Urine Culture Comments - Imaging Impressions Abdomen/Pelvis CT 12/12/17 10:22 CONCLUSION: 1. Cholelithiasis. 2. Splenectomy. 3. Atherosclerosis. Assessment and Plan - Plan 27-year-old male admitted secondary to acute renal failure with symptoms of nausea and an elevated creatinine in the presence of peritoneal dialysis catheter dysfunction acute peritoneal dialysis catheter dysfunction Acute renal failure on chronic renal failure Severe hypokalemia Hyperphosphatemia Hypomagnesia Nephrology consult with Dr. Solis Surgical consult appreciated and may need further revision fix of the peritoneal dialysis catheter as IR cannot fully salvage the catheter. Monitor electrolytes As needed morphine sulfate for pain. 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
--- NOTE | 2017-12-13 12:33 | IR ---
EXAM DATE: 12/12/2017 8:14 PM EDT AGE/SEX: 27 years / Male INDICATIONS: Patient with a history of chronic renal failure. On hemodialysis. Patient states he is unable to infuse or aspirate through his peritoneal dialysis catheter. CT scan shows a catheter coile d within the right lower quadrant. Patient denies fever and chills. CLINICAL DATA: This is the patient's subsequent encounter. Patient reports that signs and symptoms h ave been present for > 1 year and indicates a pain score of 0/10. MEDICAL/SURGICAL HISTORY: Lymphoma. Seizures. HIV. Kidney failure Below elbow left arm amput ation BKA bilateral Peritoneal dialysis catheter. COMPARISON: [facility], PERITONEOGRAM, 03/11/2017. . FLUORO TIME (min): 1.39 IMAGE SERIES: 2 ACCESS SITE: SEDATION TIME (min): 30 CONTRAST (cc): 30 Omnipaque (iohexol) 350 MEDICATION(S): 50mcg fentanyl (Sublimaze) IV 0.5mg lorazepam (Ativan) IV DEVICE(S): . . PROCEDURE: 1. Fluoroscopically guided peritoneal dialysis catheter manipulation and injection. 2. Conscious sedation with continuous monitoring. The risks, benefits and alternatives to the procedure were explained and verbal and written consent w as obtained. The site was prepped in sterile fashion. Full sterile technique was used, including ca p, mask, sterile gloves and gown and a large sterile sheet. Hand hygiene and 2% chlorhexidine prep w as utilized per protocol for cutaneous antisepsis with appropriate dry time for site. Fluoroscopic evaluation of the peritoneal dialysis catheter shows a coiled within the right lower brina drant. Injection of contrast shows quick dispersement of the contrast throughout the peritoneal cavit y. No loculated collections are observed. The injection was a little difficult initially but this milo ckly changed to an easy injection. Aspiration on the catheter yielded a 3 cm length of fibrin sheath. I was not able to withdraw any of the injected contents. A stiff angled glide wire was coiled within the peritoneal catheter and subsequently peritoneal cavity. Allowing the catheter to be manipulated out of the right lower quadrant. No appreciable adhesions were seen. Injection of contrast showed trevor e spillage throughout the peritoneal cavity with aspiration yielding fairly decent return. CONCLUSION: 1. Uncomplicated peritoneal dialysis catheter manipulation as detailed above. A fibrin sheath was as pirated through the catheter and this was likely the culprit. Infusion is brisk with modest aspiratio n with a volume of material utilized for this exam. If the catheter does not meet the criteria for ut ilization then surgical consultation would be needed to replace.. Electronically signed by: Colton Friend MD 12/13/2017 12:32 PM EDT
[2017-12-13] MEDS: Calcitriol 0.25 MCG Capsule PO SCH (13:04)
[2017-12-13] MEDS: Vitamin B Complex/Vit C/Folic Tablet PO SCH (13:04)
--- NOTE | 2017-12-13 13:50 | MB ---
cc: Gelacio Solis MD DATE: 12/13/2017 REASON FOR CONSULTATION: End-stage renal disease, on peritoneal dialysis, for management. HISTORY OF PRESENT ILLNESS: This is a 27-year-old male with a past medical history of HIV disease, end-stage renal disease, on peritoneal dialysis, chronic anemia, history of seizure disorder, who came to the hospital because of malfunction of PD catheter. I was called to see the patient for the management of peritoneal dialysis catheter. The patient was using the PD catheter until evening. He did the dialysis night and when he started using it Thursday, it was not working and there was a problem with the fluid going in and out, so he came to the emergency department yesterday. I was called from the ER and then I put a consult to radiology and I talked to Dr. Friend and he kindly did the intervention yesterday evening. When he injected the contrast, he was unable to withdraw. He tried to reposition the catheter by using the wire and aspiration showed a large fibrin sheath from the catheter. The patient has some mild abdominal pain. He denies any constipation. He had a bowel movement yesterday. He denies any nausea or vomiting. There is no history of diarrhea. The patient is losing weight and he is accusing this that he is not getting enough food at home. The patient lives with his aunt and grandmother. PAST MEDICAL HISTORY: HIV disease, chronic anemia, seizure disorder, end-stage renal disease ,on peritoneal dialysis, history of lymphoma. PAST SURGICAL HISTORY: History of PD catheter placement and removal, history of bilateral below-knee amputations and history of left arm amputation. REVIEW OF SYSTEMS: The patient denies any history of fever. No headache, dizziness or blurring of vision. Denies any shortness of breath. No chest pain. No palpitations. He has mild epigastric pain. There is no history of diarrhea. No nausea or vomiting. SOCIAL HISTORY: The patient is single and lives with his aunt and grandmother. There is no history of smoking or alcoholism. FAMILY HISTORY: Noncontributory. ALLERGIES: HE IS ALLERGIC TO AMOXICILLIN, CLINDAMYCIN, PENICILLIN AND VANCOMYCIN. MEDICATIONS: Currently, he is on the following medications: 1. Ziagen 300 mg q.12 hours. 2. PhosLo 667 mg t.i.d. 3. Pepcid 20 mg once a day. 4. Vimpat 50 mg b.i.d. 5. Epivir 150 mg daily. 6. Keppra 750 mg q.12 hours. 7. Morphine 2 mg q.4 hours. 8. Zofran as needed. 9. Norvir 100 mg b.i.d. 10. He received some Benadryl. PHYSICAL EXAMINATION: GENERAL: The patient is awake, alert. He is not in acute distress. VITAL SIGNS: His last blood pressure is 114/69, temperature 98.3, oxygen saturation 97% to 100% on room air. HEENT: Pupils are mid constricted. Nonicteric sclerae. Conjunctivae are normal. NECK: Supple. JVD is not elevated. LUNGS: The patient has bilateral good air entry. No wheezing. HEART: S1, S2. Regular rhythm. ABDOMEN: Soft, lax, slightly distended. PD catheter in place. There is no definite tenderness. Bowel sounds positive. EXTREMITIES: He has bilateral below-knee amputations. INVESTIGATIONS: WBC count 8.7, hemoglobin 12.3, platelet count 385, neutrophils 53%. Sodium 140, potassium 3.1, chloride 104, bicarbonate 19.4, BUN 80, creatinine 10.3, corrected calcium 6.2, phosphorus 6.9, magnesium 2.9. AST and ALT normal. Total protein is 8.1 with albumin of 3.6. Lipase is 322. Urinalysis is showing protein of 100. IMAGING STUDIES: The patient had a CT scan of the abdomen and pelvis done, which shows that he has cholelithiasis, splenectomy, atherosclerosis and the dialysis catheter was coiled in the right lower quadrant. No evidence of bowel obstruction. ASSESSMENT: 1. Malfunction of peritoneal dialysis catheter. 2. Hypocalcemia and hyperphosphatemia. 3. History of seizure disorder. 4. Human immunodeficiency virus disease. 5. Mild anemia. PLAN: The patient had repositioning of the PD catheter with a fibrin sheath removed from it. Hopefully, this is working now. I will ask the dialysis nurse to use it today. His potassium was low. I will replace potassium and also replace the calcium and increase his PhosLo and add Calcitriol. If his PD catheter works, then he can be discharged tomorrow. In case his PD catheter does not work, then I will call the surgeon to see him for repositioning of the PD catheter surgically. Thank you for the consultation. The patient will be followed by me while he is in the hospital. MD SHEILA Johsnon/praveen , 11:12 AM , 11:22 AM
--- NOTE | 2017-12-13 17:31 | P.PN ---
Subjective Interval history: Patient reports dialysate is going in well now. Tolerating peritoneal dialysis Physical Exam Vital signs: Vital Signs 12/12/17 20:00 12/13/17 00:00 12/13/17 00:39 Temperature 97.8 F 97.6 F Pulse Rate 65 65 66 Respiratory Rate 17 17 Blood Pressure 120/87 125/87 Pulse Oximetry 99 93 L 12/13/17 04:28 12/13/17 08:00 12/13/17 08:55 Temperature 98.9 F 98.3 F Pulse Rate 74 66 57 L Respiratory Rate 17 17 Blood Pressure 115/81 114/69 Pulse Oximetry 100 97 12/13/17 12:00 12/13/17 16:00 Temperature 98.4 F 98.4 F Pulse Rate 63 63 Respiratory Rate 18 18 Blood Pressure 112/72 112/72 Pulse Oximetry 95 95 Intake & Output 12/12/17 12/13/17 12/13/17 18:59 06:59 18:59 Intake Total 0 / 0 Output Total 200 / 200 500 / 500 Balance -200 / -200 -500 / -500 Weight 43.01 kg 43 kg Intake: Oral 0 / 0 Output: Urine 200 / 200 500 / 500 Other: Date of Last Bowel Movement 12/12/17 12/12/17 12/12/17 # Bowel Movements 0 - Routine Abdominal Exam Present: soft, distended Results - Labs CBC & Chem 7: 12/13/17 04:29 12/13/17 04:29 Laboratory Results - last 24 hr 12/12/17 12/13/17 12/13/17 12:55 04:29 04:29 WBC 8.7 RBC 4.58 Hgb 12.3 L Hct 39.1 MCV 85.4 MCH 27.0 MCHC 31.6 L RDW 17.5 H Plt Count 385 MPV 9.2 Prelim Diff (Auto) Manual diff required WBC Differential Manual diff final Seg Neuts % (Manual) 46 Lymphocytes % (Manual) 36 Monocytes % (Manual) 6 Eosinophils % (Manual) 12 H Abs Neuts (Manual) 4.0 Nucleated RBCs/100 WBC 30 H Differential Comment . Platelet Estimate Normal Platelet Morphology Normal Target Cells 1+ H Ovalocytes 1+ H [place] Bodies Present H Sodium 140 Potassium 3.1 L Chloride 104 Carbon Dioxide 19.4 L Anion Gap 17 H BUN 80 H Creatinine 10.23 H* Estimated GFR 7 L Random Glucose 67 L Calcium 6.6 L* Prot Corrected Calcium 6.2 L* Phosphorus 6.9 H Magnesium 2.9 H Total Bilirubin 0.3 AST 21 ALT 26 Alkaline Phosphatase 60 Total Protein 8.1 Albumin 3.6 Urine Color Straw Urine Clarity Clear Urine pH 5.0 Ur Specific [place] 1.009 Urine Protein 100 H Urine Glucose (UA) 50 Urine Ketones Negative Urine Occult Blood Small H Urine Nitrate Negative Urine Bilirubin Negative Urine Urobilinogen Less than 2 Ur Leukocyte Esterase Negative Urine RBC Less than 1 Urine WBC 2 Ur Squamous Epith Cells 1 Urine Bacteria Many H Micro UA Comment Culture indicated Urine Culture Comments Culture indicated Microbiology 12/12/17 12:55 Clean Catch Urine Urine Culture - Preliminary Group D Enterococcus - Imaging Impressions Peritoneogram w/Contrast 12/12/17 00:00 CONCLUSION: 1. Uncomplicated peritoneal dialysis catheter manipulation as detailed above. A fibrin sheath was aspirated through the catheter and this was likely the culprit. Infusion is brisk with modest aspiration with a volume of material utilized for this exam. If the catheter does not meet the criteria for utilization then surgical consultation would be needed to replace.. Assessment and Plan - Assessment (1) Peritoneal dialysis catheter dysfunction Code(s): T85.611A - Breakdown (mechanical) of intraperitoneal dialysis catheter , initial encounter Status: Acute Plan: Functioning after IR repositioning of catheter and removal of fibrin sheath. We will see as needed.
[2017-12-14 00:38] VITALS: O2SAT 96
[2017-12-14] MEDS: Vitamin B Complex/Vit C/Folic Tablet PO SCH (08:47)
[2017-12-14] MEDS: Calcitriol 0.25 MCG Capsule PO SCH (08:47)
[2017-12-14] MEDS: levETIRAcetam 250 MG Tablet PO SCH (08:47)
[2017-12-14] MEDS: Lacosamide 50 MG Tablet PO SCH (08:47)
[2017-12-14] MEDS: Calcium Acetate 667 MG Capsule PO SCH ×2 (08:47→12:43)
[2017-12-14] MEDS: Famotidine 20 MG Tablet PO SCH (08:47)
[2017-12-14 09:12] VITALS: RESP 14; TEMP 98.3
--- NOTE | 2017-12-14 10:20 | P.PNNP ---
Subjective Interval history: Reported that PD catheter functioned properly last night. No complaints reported. <Lou Hoffman - Last Filed: 12/14/17 13:52> Physical Exam Vital signs: Vital Signs 12/13/17 12:00 12/13/17 16:00 12/13/17 20:00 Temperature 98.4 F 98.4 F 98.2 F Pulse Rate 63 63 64 Respiratory Rate 18 18 18 Blood Pressure 112/72 112/72 119/85 Pulse Oximetry 95 95 93 L 12/14/17 00:37 12/14/17 04:23 12/14/17 08:00 Temperature 98.3 F 97.8 F 98.3 F Pulse Rate 71 70 70 Respiratory Rate 16 17 14 Blood Pressure 134/92 H 128/82 108/66 Pulse Oximetry 96 96 96 Intake & Output 12/13/17 12/14/17 12/14/17 18:59 06:59 18:59 Intake Total 500 / 500 Output Total 300 / 300 400 / 400 Balance 200 / 200 -400 / -400 Weight 43 kg Intake: Oral 500 / 500 Output: Urine 300 / 300 400 / 400 Other: Date of Last Bowel Movement 12/12/17 # Bowel Movements 0 Narrative: GENERAL: Awake. NAD SKIN: Warm and dry. HEAD: Normocephalic. EYES: No scleral icterus. No injection or drainage. NECK: Supple, trachea midline. No JVD or lymphadenopathy. CARDIOVASCULAR: Regular rate and rhythm without murmurs, gallops, or rubs. RESPIRATORY: Breath sounds equal bilaterally. No accessory muscle use. GASTROINTESTINAL: Abdomen soft, non-tender, nondistended. PD catheter in place MUSCULOSKELETAL: No cyanosis, or edema. Has bilateral lower extremity amputations. Left arm amputation. BACK: Nontender without obvious deformity. No CVA tenderness.lar rhythm. <Lou Hoffman - Last Filed: 12/14/17 13:52> Vital signs: Vital Signs 12/13/17 20:00 12/14/17 00:37 12/14/17 04:23 Temperature 98.2 F 98.3 F 97.8 F Pulse Rate 64 71 70 Respiratory Rate 18 16 17 Blood Pressure 119/85 134/92 H 128/82 Pulse Oximetry 93 L 96 96 12/14/17 08:00 12/14/17 12:00 Temperature 98.3 F 98.3 F Pulse Rate 73 65 Respiratory Rate 14 14 Blood Pressure 108/66 106/62 Pulse Oximetry 96 96 Intake & Output 12/13/17 12/14/17 12/14/17 18:59 06:59 18:59 Intake Total 500 / 500 Output Total 300 / 300 400 / 400 Balance 200 / 200 -400 / -400 Weight 43 kg Intake: Oral 500 / 500 Output: Urine 300 / 300 400 / 400 Other: Date of Last Bowel Movement 12/12/17 12/12/17 # Bowel Movements 0 <Gelacio Solis - Last Filed: 12/14/17 18:24> Assessment and Plan - Assessment (1) End stage renal disease on dialysis Code(s): N18.6 - End stage renal disease; Z99.2 - Dependence on renal dialysis Status: Acute Plan: Continue PD nightly Reports that PD catheter worked properly last night. UA abnormal, seen by ID does not recommend antibiotics as patient is asymptomatic. Patient is cleared per nephrology stand point for discharge. (2) Peritoneal dialysis catheter dysfunction Code(s): T85.611A - Breakdown (mechanical) of intraperitoneal dialysis catheter , initial encounter Status: Acute Plan: The patient had repositioning of the PD catheter with a fibrin sheath removed from it. Functioned properly last night <Lou Hoffman - Last Filed: 12/14/17 13:52> - Assessment (1) End stage renal disease on dialysis Code(s): N18.6 - End stage renal disease; Z99.2 - Dependence on renal dialysis Status: Acute Plan: Patient seen and examined, agree with above. PD catheter working and HD fibrin. Need to use Heparin, explain to the patient. Now for discharge, also told to be compliant with PD and his meds. (2) Peritoneal dialysis catheter dysfunction Code(s): T85.611A - Breakdown (mechanical) of intraperitoneal dialysis catheter , initial encounter Status: Acute <Gelacio Solis - Last Filed: 12/14/17 18:24>
--- NOTE | 2017-12-14 10:58 | P.PNIM ---
Subjective Interval history: Feeling all right. Denies any chest pain or shortness of breath. Denies abdominal pain. Physical Exam Vital signs: Vital Signs 12/13/17 12:00 12/13/17 16:00 12/13/17 20:00 Temperature 98.4 F 98.4 F 98.2 F Pulse Rate 63 63 64 Respiratory Rate 18 Blood Pressure 112/72 112/72 119/85 Pulse Oximetry 95 95 93 L 12/14/17 00:37 12/14/17 04:23 12/14/17 08:00 Temperature 98.3 F 97.8 F 98.3 F Pulse Rate 71 70 73 Respiratory Rate 16 14 Blood Pressure 134/92 H 128/82 108/66 Pulse Oximetry 96 96 96 Intake & Output 12/13/17 12/14/17 12/14/17 18:59 06:59 18:59 Intake Total 500 / 500 Output Total 300 / 300 400 / 400 Balance 200 / 200 -400 / -400 Weight 43 kg Intake: Oral 500 / 500 Output: Urine 300 / 300 400 / 400 Other: Date of Last Bowel Movement 12/12/17 12/12/17 # Bowel Movements 0 Narrative: GENERAL: Patient appears comfortable. SKIN: Warm and dry. HEAD: Normocephalic. EYES: No scleral icterus. No injection or drainage. NECK: Supple, trachea midline. No JVD or lymphadenopathy. CARDIOVASCULAR: Regular rate and rhythm without murmurs, gallops, or rubs. RESPIRATORY: Breath sounds equal bilaterally. No accessory muscle use. GASTROINTESTINAL: Abdomen soft, non-tender, nondistended. MUSCULOSKELETAL: No cyanosis, or edema. BACK: Nontender without obvious deformity. No CVA tenderness. Results - Labs CBC & Chem 7: 12/13/17 04:29 12/13/17 04:29 Laboratory Results - last 24 hr 12/12/17 12:55 Urine Color Straw Urine Clarity Clear Urine pH 5.0 Ur Specific [place] 1.009 Urine Protein 100 H Urine Glucose (UA) 50 Urine Ketones Negative Urine Occult Blood Small H Urine Nitrate Negative Urine Bilirubin Negative Urine Urobilinogen Less than 2 Ur Leukocyte Esterase Negative Urine RBC Less than 1 Urine WBC 2 Ur Squamous Epith Cells 1 Urine Bacteria Many H Micro UA Comment Culture indicated Urine Culture Comments Culture indicated Microbiology 12/12/17 12:55 Clean Catch Urine Urine Culture - Preliminary Group D Enterococcus - Imaging Impressions Peritoneogram w/Contrast 12/12/17 00:00 CONCLUSION: 1. Uncomplicated peritoneal dialysis catheter manipulation as detailed above. A fibrin sheath was aspirated through the catheter and this was likely the culprit. Infusion is brisk with modest aspiration with a volume of material utilized for this exam. If the catheter does not meet the criteria for utilization then surgical consultation would be needed to replace.. Assessment and Plan - Plan 27-year-old male admitted secondary to acute renal failure with symptoms of nausea and an elevated creatinine in the presence of peritoneal dialysis catheter dysfunction acute peritoneal dialysis catheter dysfunction Acute renal failure on chronic renal failure Severe hypokalemia Hyperphosphatemia Hypomagnesia Nephrology consult with Dr. Solis Surgical consult appreciated and may need further revision fix of the peritoneal dialysis catheter as IR cannot fully salvage the catheter. Monitor electrolytes As needed morphine sulfate for pain. = Discharge when cleared by nephrology. //Josekoffler UTI Consult infectious disease. Discussed with nephrology. 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
[2017-12-14 12:48] VITALS: BP 106/62; PULSE 65
--- NOTE | 2017-12-14 13:20 | P.CONID ---
History of Present Illness Service: Infectious disease Consult date: 12/14/17 Requesting Physician: Mingo Barnett Reason for Consult: Evaluate patient with positive urine culture Primary Care Provider: UNKNOWN Family Provider: Gelacio Solis MD History of Present Illness: Patient seen and examined. Records reviewed. Patient does not talk very much, answered questions usually one to 2 words. Mr. Yu is a 27 year old male with a history of ESRD on PD, came in secondary to dysfunction of his peritoneal dialysis catheter. He was told by nurse over the phone to try flushing with heparin and he has tried this at home , but this did not work. He also reported episode of diarrhea and some vomiting on the morning of admission. He denies any abdominal pain. Patient still has some urine output, and he denies any urinary symptoms. He has not had any recurrent episode of diarrhea or vomiting since admission. IR evaluated his peritoneal dialysis catheter and had manipulation of the coiled catheter. He has had peritoneal dialysis after that and his catheter is working fine. On admission he had a urinalysis that only showed 2 WBC but many bacteria. The urine culture is now reported as greater than 100,000 colony of enterococcus. He has not been febrile. His WBC is normal. He has not been on any antibiotics. He offers no other complaints. Infectious disease consultation has been requested to make recommendation regarding his positive urine culture. Review of Systems Constitutional: Denies chills, Denies fever(s), Denies malaise Eyes: Denies discharge, Denies itchy eyes Ears, Nose, Mouth, and Throat: Denies dizziness, Denies dry mouth, Denies ear discharge, Denies nose pain, Denies pain with swallowing, Denies sore throat Cardiovascular: Denies chest pain, Denies shortness of breath Respiratory: Denies chest congestion, Denies cough, Denies shortness of breath Gastrointestinal: Denies abdominal pain, Denies difficulty swallowing, Denies nausea, Denies pain with swallowing Genitourinary: Denies blood in urine, Denies painful urination Musculoskeletal: Denies joint pain Skin/Breast: Reports dry skin, Denies rash Neurologic: Denies headache(s) PMFSH - History History Provided By: Patient - Medical History Medical History: Medical History (Last Updated 12/12/17 @ 13:26 by Shaquille Lopez MD) Lymphoma in remission (Acute) Seizures (Acute) Peritoneal dialysis catheter in place (Acute) 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 (Acute) S/P BKA (below knee amputation) bilateral (Acute) HIV (human immunodeficiency virus infection) (Acute) Kidney failure (Acute) Peritoneal dialysis catheter dysfunction Peritoneal dialysis catheter fitting or adjustment Peritoneal dialysis catheter in place - Family History Family History: Family History (Last Reviewed 12/12/17 @ 10:40 by Radha Jonas DO) Mother HIV (human immunodeficiency virus infection) - Tobacco History Second Hand Smoke Exposure: No Tobacco Use In Past 30 Days: No Smoking Status: Never smoker Tobacco Type: Cigarettes - Alcohol History How Often Do You Have a Drink Containing Alcohol: Never - Substance Use History Substance History: Active Abuse - Travel History Recent Travel in the [place] Within the Last 8 Weeks: No Recent Travel Out of the Country Within the Last 8 Weeks: No - Immunization History Tetanus Immunization: Unsure Hx Influenza Vaccine This Season: Yes Medications and Allergies Active Medications: Active Medications Abacavir Sulfate (Ziagen) 300 mg PO Q12HR [facility] Last Admin: 12/14/17 08:47 Dose: 300 mg Al Hydroxide/Mg Hydroxide (Milk Of David Torres) 30 ml PO Q12H PRN PRN Reason: Mild Constipation Calcitriol (Rocaltrol) 0.5 mcg PO DAILY [facility] Last Admin: 12/14/17 08:47 Dose: 0.5 mcg Calcium Acetate (Phoslo) 1,334 mg PO TID [facility] Last Admin: 12/14/17 12:43 Dose: Not Given Famotidine (Pepcid) 20 mg PO DAILY [facility] Last Admin: 12/14/17 08:47 Dose: 20 mg Heparin Sodium (Porcine) (Heparin Inj) 1,000 units OTHER WITH DIALYSIS PRN PRN Reason: SEE LABEL COMMENTS Sodium Chloride (Ns Inj) 1,000 mls @ 50 mls/hr IV.CONT .Q20H [facility] Last Admin: 12/13/17 21:33 Dose: Not Given Lacosamide (Vimpat) 50 mg PO BID [facility] Last Admin: 12/14/17 08:47 Dose: 50 mg Lamivudine (Epivir) 150 mg PO DAILY [facility] Last Admin: 12/14/17 08:47 Dose: 150 mg Levetiracetam (Keppra) 750 mg PO Q12HR [facility] Last Admin: 12/14/17 08:47 Dose: 750 mg Morphine Sulfate (Morphine Inj) 2 mg IV.PUSH Q4H PRN PRN Reason: Pain 3 to 6 Morphine Sulfate (Morphine Inj) 4 mg IV.PUSH Q4H PRN PRN Reason: Pain 7 to 10 Ondansetron HCl (Zofran Inj) 4 mg IV.PUSH Q6H PRN PRN Reason: NAUSEA OR VOMITING Ondansetron HCl (Zofran Odt) 4 mg PO TID PRN PRN Reason: NAUSEA Ritonavir (Norvir) 100 mg PO BID [facility] Last Admin: 12/14/17 08:47 Dose: 100 mg Sodium Chloride (Ns Flush) 2 ml IV.FLUSH PRN PRN PRN Reason: FLUSH AFTER USING IV ACCESS Last Admin: 12/12/17 10:33 Dose: 2 ml Sodium Chloride (Ns Flush) 10 ml IV.FLUSH UNSCH PRN PRN Reason: SEE LABEL COMMENTS Vitamin B Complex/Vit C/Folic Acid (Nephrocaps) 1 tab PO DAILY [facility] Last Admin: 12/14/17 08:47 Dose: 1 tab Allergies Allergy/AdvReac Type Severity Reaction Status Date / Time amoxicillin Allergy Severe rash all Verified 10/10/17 04:59 over clindamycin Allergy Severe Desquamating Verified 10/10/17 04:59 rash penicillin G Allergy Severe Anaphylaxis Verified 10/10/17 04:59 vancomycin Allergy Severe Desqumating Verified 10/10/17 04:59 rash Home Medications Medication Instructions Recorded Confirmed Type abacavir 300 mg PO Q12H 10/07/17 12/12/17 History calcium acetate 667 mg PO TID 10/07/17 12/12/17 History famotidine 20 mg PO DAILY 10/07/17 12/12/17 History lamivudine 150 mg PO DAILY 10/07/17 12/12/17 History levetiracetam [Keppra] 750 mg PO Q12H 10/07/17 12/12/17 History ondansetron HCl [Zofran] 4 mg PO TID PRN 10/07/17 12/12/17 History ritonavir 100 mg PO BID 10/07/17 12/12/17 History Exam Vital signs: Vital Signs 12/13/17 16:00 12/13/17 20:00 12/14/17 00:37 Temperature 98.4 F 98.2 F 98.3 F Pulse Rate 63 64 71 Respiratory Rate 18 18 16 Blood Pressure 112/72 119/85 134/92 H Pulse Oximetry 95 93 L 96 12/14/17 04:23 12/14/17 08:00 12/14/17 12:00 Temperature 97.8 F 98.3 F 98.3 F Pulse Rate 70 73 65 Respiratory Rate 17 14 14 Blood Pressure 128/82 108/66 106/62 Pulse Oximetry 96 96 96 Intake & Output 12/13/17 12/14/17 12/14/17 18:59 06:59 18:59 Intake Total 500 / 500 Output Total 300 / 300 400 / 400 Balance 200 / 200 -400 / -400 Weight 43 kg Intake: Oral 500 / 500 Output: Urine 300 / 300 400 / 400 Other: Date of Last Bowel Movement 12/12/17 12/12/17 # Bowel Movements 0 Narrative: Physical Examination GENERAL: Patient is a well-nourished, well-developed male, awake and alert, not in respiratory distress. SKIN: Cool and dry. No generalized rash, no ecchymoses and no evidence of embolic lesions. HEAD: Atraumatic. Normocephalic. No temporal wasting, or tenderness. EYES: [place] conjunctiva. No petechia or hemorrhage. Pupils equal, round and reactive to light. Extraocular movements full and intact. No scleral icterus. Has bilateral conjunctival injection EARS, NOSE AND THROAT: Nose without bleeding or purulent nasal discharge. No sinus tenderness. Mucous membranes pink and moist. No oral lesions noted. No exudate. No oral thrush. NECK: Trachea midline. Supple and not tender, no meningeal signs CARDIOVASCULAR: Regular rate and rhythm. No murmurs, rubs or gallops heard RESPIRATORY: Clear to auscultation. Breath sounds equal bilaterally. No rales , wheezing or rhonchi ABDOMEN: Soft, non-tender, mildly distended. Bowel sounds present and normoactive. PD cath site looks ok. No guarding. No rebound. No organomegaly. EXTREMITIES: No clubbing, cyanosis, or edema. S/P L below elbow amputation, with well healed stump. S/P [place] BKA, with well healed stumps. NEUROLOGICAL: Awake and alert. Cranial nerves grossly intact. Motor grossly within normal limits. PSYCHIATRIC: Flat affect, calm and cooperative. LINE: No evidence of infection Results - Labs CBC & Chem 7: 12/13/17 04:29 12/13/17 04:29 - Imaging Peritoneogram w/Contrast 12/12/17 00:00 CONCLUSION: 1. Uncomplicated peritoneal dialysis catheter manipulation as detailed above. A fibrin sheath was aspirated through the catheter and this was likely the culprit. Infusion is brisk with modest aspiration with a volume of material utilized for this exam. If the catheter does not meet the criteria for utilization then surgical consultation would be needed to replace.. Abdomen/Pelvis CT 12/12/17 10:22 CONCLUSION: 1. Cholelithiasis. 2. Splenectomy. 3. Atherosclerosis. Assessment and Plan - Plan Impression (+) UC with Enterococcus, asymptomatic, UA only with 2 WBC, no leukocyte esterase. - unclear significance, ?contaminant ESRD on PD HIV, last CD4 counts in March >1000 Recommendation Will not start any Abx since he does not have any symptoms and his UA is fairly unremarkable He seems clinically stable from ID standpoint He has a provider following him for his HIV Thank you for this consultation
[2017-12-14] MEDS: Sod Chloride 0.9% Inj 1,000 ML IV.CONT SCH (16:04)
--- NOTE | 2017-12-14 16:27 | P.DS ---
Date of admission: 12/12/17 13:26 Primary care physician: UNKNOWN Brief History from admission: Mr. Yu is a 27 year old male with a history of Chronic Renal Failure, dependent on peritoneal dialysis. He came in secondary to dysfunction of his peritoneal dialysis catheter. He was told by nurse over the phone to try flushing with heparin and he has tried this at home, but this did not work. Symptoms reported are an episode of diarrhea this morning and nausea with some vomiting this morning. Presently he has no recurrence of diarrhea and no nausea when seen. Etiology for his nausea, vomiting, and diarrhea could have been related to electrolyte disturbances. He has hypermagnesemia and hyperphosphatemia. Additionally he has severe hypo-calcium. No other complaints today. DS: Summary Hospital Course: Patient presented with dysfunction of peritoneal dialysis catheter, uremia. This was resolved by removal of a fibrin plug with subsequent functioning of her nail dialysis catheter under direction of nephrology. Patient had a urinalysis on admission with only 2 white blood cells, however grew out Enterococcus faecalis 100,000 units. Patient without dysuria. Infectious disease was consulted and agrees that patient does not need antibiotics for treatment of asymptomatic bacteriuria. For problem-based summary from most recent progress note, please see below. 27-year-old male admitted secondary to acute renal failure with symptoms of nausea and an elevated creatinine in the presence of peritoneal dialysis catheter dysfunction acute peritoneal dialysis catheter dysfunction Acute renal failure on chronic renal failure Severe hypokalemia Hyperphosphatemia Hypomagnesia Nephrology consult with Dr. Solis Surgical consult appreciated and may need further revision fix of the peritoneal dialysis catheter as IR cannot fully salvage the catheter. Monitor electrolytes As needed morphine sulfate for pain. = Discharge when cleared by nephrology. //Preethi UTI Consult infectious disease. Discussed with nephrology. 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 - Time Spent with Patient Total time spent providing and/or coordinating discharge services: Greater than 30 minutes - Quality: VTE Deep Vein Thrombosis/Pulmonary Embolism Present on Admission: No Exam Vital signs: Vital Signs 12/13/17 20:00 12/14/17 00:37 12/14/17 04:23 Temperature 98.2 F 98.3 F 97.8 F Pulse Rate 64 71 70 Respiratory Rate 18 16 17 Blood Pressure 119/85 134/92 H 128/82 Pulse Oximetry 93 L 96 96 12/14/17 08:00 12/14/17 12:00 Temperature 98.3 F 98.3 F Pulse Rate 73 65 Respiratory Rate 14 14 Blood Pressure 108/66 106/62 Pulse Oximetry 96 96 Intake & Output 12/13/17 12/14/17 12/14/17 18:59 06:59 18:59 Intake Total 500 / 500 Output Total 300 / 300 400 / 400 Balance 200 / 200 -400 / -400 Weight 43 kg Intake: Oral 500 / 500 Output: Urine 300 / 300 400 / 400 Other: Date of Last Bowel Movement 12/12/17 12/12/17 # Bowel Movements 0 Results Procedures completed during hospitalization: repositioning of peritoneal dialysis catheter with removal of fibrin plug. - Impressions ITS Impressions Peritoneogram w/Contrast 12/12/17 00:00 CONCLUSION: 1. Uncomplicated peritoneal dialysis catheter manipulation as detailed above. A fibrin sheath was aspirated through the catheter and this was likely the culprit. Infusion is brisk with modest aspiration with a volume of material utilized for this exam. If the catheter does not meet the criteria for utilization then surgical consultation would be needed to replace.. Abdomen/Pelvis CT 12/12/17 10:22 CONCLUSION: 1. Cholelithiasis. 2. Splenectomy. 3. Atherosclerosis. Discharge Plan - Discharge Disposition Patient Disposition: 01 Discharge Home - Discharge Condition Condition: Stable - Discharge Order Discharge Orders: Discharge Order (Routine); Ordered 12/14/17 Ordered By: Mingo Barnett - Discharge Details Anticipated Discharge Date: 12/14/17 - Physicians Team Primary Care Provider: UNKNOWN, Attending Provider: Mingo Barnett Other Providers: Gibson Lujan MD ; Gelacio Solis MD ; Lindsey Man MD
== END 2017-12-14 17:21 | disposition home or self-care (01) ==
LOC: NEPE 09:50 → NEDA 13:26 → N07 15:00
PROVIDERS: ADMIT Internal Medicine; ATTEND Internal Medicine

== ENCOUNTER 2018-01-11 00:50 | Observation (INO) ==
[2018-01-11 05:21] LABS: Baso # (Auto) 0.2 th/mm3 (0.0-0.2); Baso % (Auto) 1.8 % (0.0-2.0); Eos # (Auto) 0.7 th/mm3 (0.0-0.4); Eos % (Auto) 5.6 % (0.0-4.0); Hematocrit 34.8 % (39.0-51.0); Hemoglobin 11.1 gm/dL (13.0-17.0); Lymph # (Auto) 3.2 th/mm3 (1.0-4.8); Lymph % (Auto) 25.5 % (9.0-44.0); Mean Corpuscular HGB Conc 31.9 % (32.0-36.0); Mean Corpuscular Volume 84.7 fL (80.0-100.0); Mean Platelet Volume 9.4 fL (7.0-11.0); Mono # (Auto) 1.1 th/mm3 (0.0-0.9); Mono % (Auto) 8.8 % (0.0-8.0); Neut # (Auto) 7.3 th/mm3 (1.8-7.7); Neut % (Auto) 58.3 % (16.0-70.0); Platelet Count 330 th/mm3 (150-450); Red Blood Count 4.11 mil/mm3 (4.50-5.90); Red Cell Distribution Width 16.1 % (11.6-17.2); White Blood Count 12.5 th/mm3 (4.0-11.0)
[2018-01-11 05:39] LABS: Alanine Aminotransferase 32 U/L (12-78)
[2018-01-11 05:40] LABS: Alkaline Phosphatase 61 U/L (45-117); Total Protein 7.6 g/dL (6.4-8.2)
[2018-01-11 05:43] LABS: Albumin 2.9 g/dL (3.4-5.0); Anion Gap 13 meq/L (5-15); Aspartate Aminotransferase 28 U/L (15-37); Blood Urea Nitrogen 74 mg/dL (7-18); Calcium 7.8 mg/dL (8.5-10.1); Carbon Dioxide 20.1 meq/L (21.0-32.0); Chloride 107 meq/L (98-107); Glomerular Filtration Rate 9 mL/min (>89); Glucose,Random 69 mg/dL (74-106); Lipase 217 U/L (73-393); Potassium 3.8 meq/L (3.5-5.1); Sodium 140 meq/L (136-145)
[2018-01-11 06:22] LABS: Eosinophils 8 % (0-4); Howell-Jolly Bodies Present; Lymphocytes 31 % (9-44); Monocytes 9 % (0-8); Ovalocytes 1+; Tallied Nucleated RBC 28 (0-0); Target Cells 1+
[2018-01-11 06:23] LABS: Pappenheimer Bodies Present; Platelet Estimate Normal (Normal); Platelet Morphology Normal (Normal)
[2018-01-11 06:42] LABS: Bacteria,Urine Few /hpf; Bilirubin,Urine Negative (Negative); Clarity,Urine Clear (Clear); Color,Urine Straw (Yellw/Straw); Glucose,Urine (UA) 50 mg/dL (Negative); Leukocyte Esterase,Urine Negative (Negative); Nitrite,Urine Negative (Negative); Specific Gravity,Urine 1.006 (1.002-1.035); Squamous Epithelial Cell,Urine <1 /hpf (0-5)
--- NOTE | 2018-01-11 06:51 | ED ---
HPI General Chief complaint: Molder Sweep Problem Stated complaint: Molder Sweep Time Seen by Provider: 01/11/18 02:49 Source: patient Mode of arrival: ambulatory Limitations: no limitations History of Present Illness HPI narrative: 27-year-old male with history of end-stage renal disease, peritoneal dialysis, HIV, bilateral BKA came to the emergency room complaining of some abdominal pain. He also says that his last dialysis was last . He points to his entire abdomen saying it hurts. However he was fast asleep when I went to see him and did not appear to be uncomfortable at all. Patient is well-known to the department for frequent visits and being noncompliant with his dialysis. He says his stock dealer is Dr. Solis. No history of fever or chills. Vital signs are stable. Unable to determine any aggravating or relieving factors. Patient has not been a very good historian. Related Data Home Medications Medication Instructions Recorded Confirmed abacavir 300 mg PO Q12H 10/07/17 01/11/18 calcium acetate 667 mg PO TID 10/07/17 01/11/18 famotidine 20 mg PO DAILY 10/07/17 01/11/18 lamivudine 150 mg PO DAILY 10/07/17 01/11/18 levetiracetam [Keppra] 750 mg PO Q12H 10/07/17 01/11/18 ondansetron HCl [Zofran] 4 mg PO TID PRN 10/07/17 01/11/18 ritonavir 100 mg PO BID 10/07/17 01/11/18 Previous Rx's Medication Instructions Recorded lacosamide [Vimpat] 50 mg PO BID #60 tab 10/12/17 ammonium lactate [AmLactin] 1 applicatio TOPICAL BID #1 tube 01/14/18 calcium acetate 1,334 mg PO TID 30 Days #180 cap 01/14/18 hydroxyzine HCl 25 mg PO Q8H PRN #21 tab 01/14/18 Allergies Allergy/AdvReac Type Severity Reaction Status Date / Time amoxicillin Allergy Severe rash all Verified 01/11/18 01:50 over clindamycin Allergy Severe Desquamating Verified 01/11/18 01:50 rash penicillin G Allergy Severe Anaphylaxis Verified 01/11/18 01:50 vancomycin Allergy Severe Desqumating Verified 01/11/18 01:50 rash Review of Systems ROS Unobtainable ROS Unobtainable: other (Patient refuses to give detailed history.) Gastrointestinal Reports abdominal pain PMFSH Medical History Medical History Lymphoma in remission (Acute) Seizures (Acute) Peritoneal dialysis catheter in place (Acute) HIV (human immunodeficiency virus infection) (Acute) Kidney failure (Acute) Peritoneal dialysis catheter dysfunction (Acute) Peritoneal dialysis catheter fitting or adjustment (Acute) Peritoneal dialysis catheter in place (Acute) Surgical History Surgical History 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 (Acute) S/P BKA (below knee amputation) bilateral (Acute) Family History Family History Mother HIV (human immunodeficiency virus infection) Social History Social History Substance History: Active Abuse Second Hand Smoke Exposure: No Smoking Status: Never smoker Tobacco Type: Cigarettes How Often Do You Have a Drink Containing Alcohol: Monthly or less Recent Travel in [facility] within the Last 8 Weeks: No Recent Out of Country Travel within the Last 8 Weeks: No Substance Abuse Detail Marijuana: Substance Use Status: Active Route Used Substance Abuse: Inhalation Reason for Use: Calm Down, Feels Good and Get High Immunization History Tetanus Immunization: Unsure Exam Narrative Exam Narrative: GENERAL: Sleepy but wakes up upon calling, no obvious distress SKIN: Focused skin assessment warm/dry. HEAD: Atraumatic. Normocephalic. EYES: Pupils equal and round. No scleral icterus. No injection or drainage. ENT: No nasal bleeding or discharge. Mucous membranes pink and moist. NECK: Trachea midline. No JVD. CARDIOVASCULAR: Regular rate and rhythm. No murmur appreciated. RESPIRATORY: No accessory muscle use. Clear to auscultation. Breath sounds equal bilaterally. GASTROINTESTINAL: Abdomen soft, abdominal tenderness on deep palpation, nondistended. Hepatic and splenic margins not palpable. MUSCULOSKELETAL: Bilateral BKA. No clubbing. No cyanosis. No edema. NEUROLOGICAL: Awake and alert. No obvious cranial nerve deficits. Motor grossly within normal limits. Normal speech. PSYCHIATRIC: Appropriate mood and affect; insight and judgment normal. Course Initial Documented Vital Signs Temperature 98.5 F 01/11/18 01:00 Pulse Rate 80 01/11/18 01:00 Respiratory Rate 16 01/11/18 01:00 Blood Pressure 107/72 01/11/18 01:00 Pulse Oximetry 95 01/11/18 01:00 Last Documented Vital Signs Temperature 97.9 F 01/14/18 11:27 Pulse Rate 82 01/14/18 11:27 Respiratory Rate 16 01/14/18 11:27 Blood Pressure 109/69 01/14/18 11:27 Pulse Oximetry 95 01/14/18 11:27 Medical Decision Making MDM Narrative Medical decision making narrative: Blood test results are back and within acceptable limit for this patient when compared to his past labs. I discussed the case with his stock dealer Dr. Solis and as per him patient should be dialyzed today unless he refuses to stay. Patient is agreeable and has been admitted to the hospitalist as an observation for the dialysis. Medical Screen Exam Complete: Yes Emergency Medical Condition: Yes Lab Data Result diagrams: 01/13/18 04:00 01/13/18 04:00 Lab Results 01/11/18 01/11/18 01/11/18 Range/Units 03:20 03:20 06:25 WBC 12.5 H (4.0-11.0) th/mm3 RBC 4.11 L (4.50-5.90) mil/mm3 Hgb 11.1 L (13.0-17.0) gm/dL Hct 34.8 L (39.0-51.0) % MCV 84.7 (80.0-100.0) fL MCH 27.0 (27.0-34.0) pg MCHC 31.9 L (32.0-36.0) % RDW 16.1 (11.6-17.2) % Plt Count 330 (150-450) th/mm3 MPV 9.4 (7.0-11.0) fL Prelim Diff (Auto) Slide review pending Neut % (Auto) 58.3 (16.0-70.0) % Lymph % (Auto) 25.5 (9.0-44.0) % Sterling % (Auto) 8.8 H (0.0-8.0) % Eos % (Auto) 5.6 H (0.0-4.0) % Baso % (Auto) 1.8 (0.0-2.0) % Neut # (Auto) 7.3 (1.8-7.7) th/mm3 Lymph # (Auto) 3.2 (1.0-4.8) th/mm3 Sterling # (Auto) 1.1 H (0.0-0.9) th/mm3 Eos # (Auto) 0.7 H (0.0-0.4) th/mm3 Baso # (Auto) 0.2 (0.0-0.2) th/mm3 WBC Differential Manual diff final Seg Neuts % (Manual) 52 (16-70) % Band Neuts % (Manual) (0-6) % Lymphocytes % (Manual) 31 (9-44) % Monocytes % (Manual) 9 H (0-8) % Eosinophils % (Manual) 8 H (0-4) % Basophils % (Manual) (0-2) % Abs Neuts (Manual) 6.5 (1.8-7.7) th/mm3 Nucleated RBCs/100 WBC 28 H (0-0) /100 WBC Differential Comment . Platelet Estimate Normal (Normal) Platelet Morphology Normal (Normal) Basophilic Stippling Faint H (None) Pappenheimer Bodies Present H (None) Target Cells 1+ H (None) Ovalocytes 1+ H (None) Ohara-Rachel Bodies Present H (None) Tarzan Cells (None) Acanthocytes (Spur) (None) Sodium 140 (136-145) meq/L Potassium 3.8 (3.5-5.1) meq/L Chloride 107 (98-107) meq/L Carbon Dioxide 20.1 L (21.0-32.0) meq/L Anion Gap 13 (5-15) meq/L BUN 74 H (7-18) mg/dL Creatinine 8.29 H (0.60-1.30) mg/dL Estimated GFR 9 L (>89) mL/min Random Glucose 69 L (74-106) mg/dL Calcium 7.8 L (8.5-10.1) mg/dL Phosphorus (2.5-4.9) mg/dL Total Bilirubin 0.2 (0.2-1.0) mg/dL AST 28 (15-37) U/L ALT 32 (12-78) U/L Alkaline Phosphatase 61 (45-117) U/L Total Protein 7.6 (6.4-8.2) g/dL Albumin 2.9 L (3.4-5.0) g/dL Lipase 217 (73-393) U/L Urine Color Straw (Yellw/Straw) Urine Clarity Clear (Clear) Urine pH 6.0 (5.0-8.5) Ur Specific [place] 1.006 (1.002-1.035) Urine Protein 30 H (Neg-Trace) mg/dL Urine Glucose (UA) 50 (Negative) mg/dL Urine Ketones Negative (Negative) mg/dL Urine Occult Blood Moderate H (Negative) Urine Nitrate Negative (Negative) Urine Bilirubin Negative (Negative) Urine Urobilinogen Less than 2 (Less than 2) mg/dL Ur Leukocyte Esterase Negative (Negative) Urine RBC Less than 1 (0-3) /hpf Urine WBC 1 (0-5) /hpf Ur Squamous Epith Cells <1 (0-5) /hpf Urine Bacteria Few H (None) /hpf Micro UA Comment Culture not ind Ur Microscopic Review Not Reportable Urine Culture Comments Culture not ind Peritoneal RBC (0-0) /mm3 Periton Nuc Cells (0-10) /mm3 Periton Neutrophils % Periton Lymphocytes % Peritoneal Monocytes % Peritoneal Eosinophils % Peritoneal Basophils Periton Mesothelial % Periton Histiocytes Peritoneal Plasma Cell Peritoneal Other Cells Peritoneal Fld Comment 01/11/18 01/11/18 01/12/18 Range/Units 12:15 12:15 08:47 WBC 8.7 (4.0-11.0) th/mm3 RBC 4.08 L (4.50-5.90) mil/mm3 Hgb 11.0 L (13.0-17.0) gm/dL Hct 34.8 L (39.0-51.0) % MCV 85.2 (80.0-100.0) fL MCH 27.0 (27.0-34.0) pg MCHC 31.7 L (32.0-36.0) % RDW 16.1 (11.6-17.2) % Plt Count 354 (150-450) th/mm3 MPV 8.9 (7.0-11.0) fL Prelim Diff (Auto) Slide review pending Neut % (Auto) 64.6 (16.0-70.0) % Lymph % (Auto) 19.2 (9.0-44.0) % Sterling % (Auto) 8.9 H (0.0-8.0) % Eos % (Auto) 6.4 H (0.0-4.0) % Baso % (Auto) 0.9 (0.0-2.0) % Neut # (Auto) 5.6 (1.8-7.7) th/mm3 Lymph # (Auto) 1.7 (1.0-4.8) th/mm3 Sterling # (Auto) 0.8 (0.0-0.9) th/mm3 Eos # (Auto) 0.6 H (0.0-0.4) th/mm3 Baso # (Auto) 0.1 (0.0-0.2) th/mm3 WBC Differential Manual diff final Seg Neuts % (Manual) 55 (16-70) % Band Neuts % (Manual) (0-6) % Lymphocytes % (Manual) 31 (9-44) % Monocytes % (Manual) 8 (0-8) % Eosinophils % (Manual) 6 H (0-4) % Basophils % (Manual) (0-2) % Abs Neuts (Manual) 4.8 (1.8-7.7) th/mm3 Nucleated RBCs/100 WBC 27 H (0-0) /100 WBC Differential Comment . Platelet Estimate Normal (Normal) Platelet Morphology Enlarged H (Normal) Basophilic Stippling (None) Pappenheimer Bodies (None) Target Cells 1+ H (None) Ovalocytes 1+ H (None) [place]-Rachel Bodies Present H (None) Mariano Cells (None) Acanthocytes (Spur) Occ H (None) Sodium (136-145) meq/L Potassium (3.5-5.1) meq/L Chloride (98-107) meq/L Carbon Dioxide (21.0-32.0) meq/L Anion Gap (5-15) meq/L BUN (7-18) mg/dL Creatinine (0.60-1.30) mg/dL Estimated GFR (>89) mL/min Random Glucose (74-106) mg/dL Calcium (8.5-10.1) mg/dL Phosphorus (2.5-4.9) mg/dL Total Bilirubin (0.2-1.0) mg/dL AST (15-37) U/L ALT (12-78) U/L Alkaline Phosphatase (45-117) U/L Total Protein (6.4-8.2) g/dL Albumin (3.4-5.0) g/dL Lipase (73-393) U/L Urine Color (Yellw/Straw) Urine Clarity (Clear) Urine pH (5.0-8.5) Ur Specific [place] (1.002-1.035) Urine Protein (Neg-Trace) mg/dL Urine Glucose (UA) (Negative) mg/dL Urine Ketones (Negative) mg/dL Urine Occult Blood (Negative) Urine Nitrate (Negative) Urine Bilirubin (Negative) Urine Urobilinogen (Less than 2) mg/dL Ur Leukocyte Esterase (Negative) Urine RBC (0-3) /hpf Urine WBC (0-5) /hpf Ur Squamous Epith Cells (0-5) /hpf Urine Bacteria (None) /hpf Micro UA Comment Ur Microscopic Review Urine Culture Comments Peritoneal RBC 20 H Cancelled (0-0) /mm3 Periton Nuc Cells 3695 H Cancelled (0-10) /mm3 Periton Neutrophils 76 Cancelled % Periton Lymphocytes 5 Cancelled % Peritoneal Monocytes 17 Cancelled % Peritoneal Eosinophils 1 Cancelled % Peritoneal Basophils Cancelled Periton Mesothelial 1 Cancelled % Periton Histiocytes Cancelled Peritoneal Plasma Cell Cancelled Peritoneal Other Cells Cancelled Peritoneal Fld Comment Cancelled 01/12/18 01/13/18 01/13/18 Range/Units 08:47 04:00 04:00 WBC 9.5 (4.0-11.0) th/mm3 RBC 3.99 L (4.50-5.90) mil/mm3 Hgb 10.7 L (13.0-17.0) gm/dL Hct 34.0 L (39.0-51.0) % MCV 85.2 (80.0-100.0) fL MCH 26.8 L (27.0-34.0) pg MCHC 31.4 L (32.0-36.0) % RDW 16.1 (11.6-17.2) % Plt Count 350 (150-450) th/mm3 MPV 8.8 (7.0-11.0) fL Prelim Diff (Auto) Slide review pending Neut % (Auto) 56.9 (16.0-70.0) % Lymph % (Auto) 26.3 (9.0-44.0) % Sterling % (Auto) 9.2 H (0.0-8.0) % Eos % (Auto) 6.8 H (0.0-4.0) % Baso % (Auto) 0.8 (0.0-2.0) % Neut # (Auto) 5.4 (1.8-7.7) th/mm3 Lymph # (Auto) 2.5 (1.0-4.8) th/mm3 Sterling # (Auto) 0.9 (0.0-0.9) th/mm3 Eos # (Auto) 0.6 H (0.0-0.4) th/mm3 Baso # (Auto) 0.1 (0.0-0.2) th/mm3 WBC Differential Manual diff final Seg Neuts % (Manual) 61 (16-70) % Band Neuts % (Manual) 1 (0-6) % Lymphocytes % (Manual) 18 (9-44) % Monocytes % (Manual) 16 H (0-8) % Eosinophils % (Manual) 3 (0-4) % Basophils % (Manual) 1 (0-2) % Abs Neuts (Manual) 5.9 (1.8-7.7) th/mm3 Nucleated RBCs/100 WBC 8 H (0-0) /100 WBC Differential Comment . Platelet Estimate Normal (Normal) Platelet Morphology Normal (Normal) Basophilic Stippling (None) Pappenheimer Bodies (None) Target Cells 2+ H (None) Ovalocytes 1+ H (None) Oh[place]-Rachel Bodies Present H (None) Mariano Cells 1+ H (None) Acanthocytes (Spur) (None) Sodium 137 136 (136-145) meq/L Potassium 3.3 L 3.1 L (3.5-5.1) meq/L Chloride 101 99 (98-107) meq/L Carbon Dioxide 22.6 24.3 (21.0-32.0) meq/L Anion Gap 13 13 (5-15) meq/L BUN 65 H 47 H (7-18) mg/dL Creatinine 7.33 H 6.27 H (0.60-1.30) mg/dL Estimated GFR 11 L 13 L (>89) mL/min Random Glucose 81 112 H (74-106) mg/dL Calcium 8.1 L 8.8 (8.5-10.1) mg/dL Phosphorus 5.4 H 6.2 H (2.5-4.9) mg/dL Total Bilirubin (0.2-1.0) mg/dL AST (15-37) U/L ALT (12-78) U/L Alkaline Phosphatase (45-117) U/L Total Protein (6.4-8.2) g/dL Albumin 3.1 L 2.8 L (3.4-5.0) g/dL Lipase (73-393) U/L Urine Color (Yellw/Straw) Urine Clarity (Clear) Urine pH (5.0-8.5) Ur Specific [place] (1.002-1.035) Urine Protein (Neg-Trace) mg/dL Urine Glucose (UA) (Negative) mg/dL Urine Ketones (Negative) mg/dL Urine Occult Blood (Negative) Urine Nitrate (Negative) Urine Bilirubin (Negative) Urine Urobilinogen (Less than 2) mg/dL Ur Leukocyte Esterase (Negative) Urine RBC (0-3) /hpf Urine WBC (0-5) /hpf Ur Squamous Epith Cells (0-5) /hpf Urine Bacteria (None) /hpf Micro UA Comment Ur Microscopic Review Urine Culture Comments Peritoneal RBC (0-0) /mm3 Periton Nuc Cells (0-10) /mm3 Periton Neutrophils % Periton Lymphocytes % Peritoneal Monocytes % Peritoneal Eosinophils % Peritoneal Basophils Periton Mesothelial % Periton Histiocytes Peritoneal Plasma Cell Peritoneal Other Cells Peritoneal Fld Comment 01/13/18 Range/Units 18:40 WBC (4.0-11.0) th/mm3 RBC (4.50-5.90) mil/mm3 Hgb (13.0-17.0) gm/dL Hct (39.0-51.0) % MCV (80.0-100.0) fL MCH (27.0-34.0) pg MCHC (32.0-36.0) % RDW (11.6-17.2) % Plt Count (150-450) th/mm3 MPV (7.0-11.0) fL Prelim Diff (Auto) Neut % (Auto) (16.0-70.0) % Lymph % (Auto) (9.0-44.0) % [place] % (Auto) (0.0-8.0) % Eos % (Auto) (0.0-4.0) % Baso % (Auto) (0.0-2.0) % Neut # (Auto) (1.8-7.7) th/mm3 Lymph # (Auto) (1.0-4.8) th/mm3 [place] # (Auto) (0.0-0.9) th/mm3 Eos # (Auto) (0.0-0.4) th/mm3 Baso # (Auto) (0.0-0.2) th/mm3 WBC Differential Seg Neuts % (Manual) (16-70) % Band Neuts % (Manual) (0-6) % Lymphocytes % (Manual) (9-44) % Monocytes % (Manual) (0-8) % Eosinophils % (Manual) (0-4) % Basophils % (Manual) (0-2) % Abs Neuts (Manual) (1.8-7.7) th/mm3 Nucleated RBCs/100 WBC (0-0) /100 WBC Differential Comment Platelet Estimate (Normal) Platelet Morphology (Normal) Basophilic Stippling (None) Pappenheimer Bodies (None) Target Cells (None) Ovalocytes (None) [place]-Rachel Bodies (None) Mariano Cells (None) Acanthocytes (Spur) (None) Sodium (136-145) meq/L Potassium (3.5-5.1) meq/L Chloride (98-107) meq/L Carbon Dioxide (21.0-32.0) meq/L Anion Gap (5-15) meq/L BUN (7-18) mg/dL Creatinine (0.60-1.30) mg/dL Estimated GFR (>89) mL/min Random Glucose (74-106) mg/dL Calcium (8.5-10.1) mg/dL Phosphorus (2.5-4.9) mg/dL Total Bilirubin (0.2-1.0) mg/dL AST (15-37) U/L ALT (12-78) U/L Alkaline Phosphatase (45-117) U/L Total Protein (6.4-8.2) g/dL Albumin (3.4-5.0) g/dL Lipase (73-393) U/L Urine Color (Yellw/Straw) Urine Clarity (Clear) Urine pH (5.0-8.5) Ur Specific [place] (1.002-1.035) Urine Protein (Neg-Trace) mg/dL Urine Glucose (UA) (Negative) mg/dL Urine Ketones (Negative) mg/dL Urine Occult Blood (Negative) Urine Nitrate (Negative) Urine Bilirubin (Negative) Urine Urobilinogen (Less than 2) mg/dL Ur Leukocyte Esterase (Negative) Urine RBC (0-3) /hpf Urine WBC (0-5) /hpf Ur Squamous Epith Cells (0-5) /hpf Urine Bacteria (None) /hpf Micro UA Comment Ur Microscopic Review Urine Culture Comments Peritoneal RBC 0 (0-0) /mm3 Periton Nuc Cells 497 H (0-10) /mm3 Periton Neutrophils 59 % Periton Lymphocytes 11 % Peritoneal Monocytes 12 % Peritoneal Eosinophils 18 % Peritoneal Basophils Periton Mesothelial % Periton Histiocytes Peritoneal Plasma Cell Peritoneal Other Cells Peritoneal Fld Comment Imaging Data Radiologist's impression: Catheter Wire Manipulation 01/11/18 00:00 CONCLUSION: 1. Peritoneal dialysis catheter manipulation as above. Discharge Plan Discharge Disposition Patient Disposition: 30 Still Patient Discharge Condition Condition: Stable Discharge Order Discharge Orders: Discharge Order (Routine); Ordered 01/14/18 Ordered By: Linda Pratt Discharge Details Anticipated Discharge Date: 01/14/18 Discharge Comment: Ok to discharge once peritoneal fluid cultures negative [id number] and when cleared by nephrology. Physicians Team ED Provider: Patricia Rojas Primary Care Provider: UNKNOWN, Attending Provider: Leah Matson Other Providers: Gelacio Solis [place] Status ED Status: Left Department Discharge Information Discharge Date/Time: 01/11/18 09:04
--- NOTE | 2018-01-11 10:24 | P.HPIM ---
History of Present Illness Primary Care Physician: UNKNOWN History of Present Illness: 27-year-old -[place] male with history of HIV, ESRD on PD, history of childhood lymphoma, and seizure disorder presenting overnight for evaluation of abdominal pain. The patient is on daily peritoneal dialysis at home and states that his last dialysis was on 01/07. He states he first noticed pain when he tried to press set up person his catheter. Pain is mostly around the catheter site but upon exam he states he is tender everywhere. He denies any fever, chills, nausea, vomiting, diarrhea, chest pain, cough, shortness of breath, or decreased appetite. 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 Apparently per nursing PD catheter would not flow. PMH: HIV, ESRD on HD, childhood lymphoma, seizure disorder Surgical Hx: Bilateral BKA, partial LUE amputation, peritoneal catheter placement Family Hx: Mother with HIV Social Hx: Lives with grandmother, daily marijuana use, occasional alcohol use - Diagnosis (1) Peritoneal dialysis catheter dysfunction Review of Systems All other systems reviewed negative except as stated in HPI PMFSH - History History Provided By: Patient - Medical History Medical History: Medical History (Last Reviewed 01/11/18 @ 13:21 by Charmaine Richardson MD) Lymphoma in remission (Acute) Seizures (Acute) Peritoneal dialysis catheter in place (Acute) HIV (human immunodeficiency virus infection) (Acute) Kidney failure (Acute) Peritoneal dialysis catheter dysfunction Peritoneal dialysis catheter fitting or adjustment Peritoneal dialysis catheter in place - Surgical History Surgical History: Surgical History (Last Updated 01/11/18 @ 13:22 by Charmaine Richardson MD) 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 (Acute) S/P BKA (below knee amputation) bilateral (Acute) - Family History Family History: Family History (Last Reviewed 01/11/18 @ 09:04 by Mindy García RN) Mother HIV (human immunodeficiency virus infection) - Social History I have reviewed the patient's Social History: Yes - Tobacco History Second Hand Smoke Exposure: No Smoking Status: Never smoker Tobacco Type: Cigarettes - Alcohol History How Often Do You Have a Drink Containing Alcohol: Monthly or less - Substance Use History Substance History: Active Abuse - Substance Use Type Marijuana Status: Active Route Used: Inhalation Reason for Use: Calm Down, Feels Good, Get High - Travel History Recent Travel in the [facility] Within the Last 8 Weeks: No Recent Travel Out of the Country Within the Last 8 Weeks: No - Immunization History Tetanus Immunization: Unsure Medications and Allergies Active Medications: Active Medications Ondansetron HCl (Zofran Inj) 4 mg IV.PUSH Q6H PRN PRN Reason: NAUSEA OR VOMITING Sodium Chloride (Ns Flush) 2 ml IV.FLUSH PRN PRN PRN Reason: FLUSH AFTER USING IV ACCESS Allergies Allergy/AdvReac Type Severity Reaction Status Date / Time amoxicillin Allergy Severe rash all Verified 01/11/18 01:50 over clindamycin Allergy Severe Desquamating Verified 01/11/18 01:50 rash penicillin G Allergy Severe Anaphylaxis Verified 01/11/18 01:50 vancomycin Allergy Severe Desqumating Verified 01/11/18 01:50 rash Home Medications Medication Instructions Recorded Confirmed Type abacavir 300 mg PO Q12H 10/07/17 01/11/18 History calcium acetate 667 mg PO TID 10/07/17 01/11/18 History famotidine 20 mg PO DAILY 10/07/17 01/11/18 History lamivudine 150 mg PO DAILY 10/07/17 01/11/18 History levetiracetam [Keppra] 750 mg PO Q12H 10/07/17 01/11/18 History ondansetron HCl [Zofran] 4 mg PO TID PRN 10/07/17 01/11/18 History ritonavir 100 mg PO BID 10/07/17 01/11/18 History Exam Vital signs: Vital Signs 01/11/18 01:00 01/11/18 01:49 01/11/18 09:27 Temperature 98.5 F 97.8 F Pulse Rate 80 78 77 Respiratory Rate 16 18 16 Blood Pressure 107/72 114/78 92/66 L Pulse Oximetry 95 100 96 Intake & Output 01/10/18 01/11/18 01/11/18 18:59 06:59 18:59 Weight 49.895 kg Narrative: GENERAL: AA male resting in bed in NAD. SKIN: Warm and dry. HEENT: AT/NC. Pupils equal and round. MMM. HEART: RRR no m/r/g. LUNGS: CTAB without wheezes or crackles. ABDOMEN: PD catheter in place with no surrounding erythema. Unable to perform abdominal exam as patient doesn't allow me to examine him by touch. EXTREMITIES: B/L BKA. Partial LUE amputation. Hypertrophic, thick, discolored nails with clubbing. NEURO: Awake and alert. PSYCH: Flat affect. Appears aggravated. Results - Labs CBC & Chem 7: 01/11/18 03:20 01/11/18 03:20 Labs: Short CBC 01/11/18 Range/Units 03:20 WBC 12.5 H (4.0-11.0) th/mm3 Hgb 11.1 L (13.0-17.0) gm/dL Hct 34.8 L (39.0-51.0) % Plt Count 330 (150-450) th/mm3 BMP 01/11/18 03:20 Sodium 140 Potassium 3.8 Chloride 107 Carbon Dioxide 20.1 L BUN 74 H Creatinine 8.29 H Calcium 7.8 L Liver Function 01/11/18 Range/Units 03:20 Total Bilirubin 0.2 (0.2-1.0) mg/dL AST 28 (15-37) U/L ALT 32 (12-78) U/L Alkaline Phosphatase 61 (45-117) U/L Albumin 2.9 L (3.4-5.0) g/dL Urine 01/11/18 Range/Units 06:25 Urine Color Straw (Yellw/Straw) Urine Clarity Clear (Clear) Urine pH 6.0 (5.0-8.5) Ur Specific Benld 1.006 (1.002-1.035) Urine Protein 30 H (Neg-Trace) mg/dL Urine Glucose (UA) 50 (Negative) mg/dL Caprini VTE Risk Assessment Caprini VTE Risk Assessment: No/Low Risk (score <= 1) Caprini Risk Assessment Model: Point Value = 1 Point Value = 2 Point Value = 3 Point Value = 5 Age 41-60 Minor surgery BMI > 25 kg/m2 Swollen legs Varicose veins or History of unexplained or recurrent spontaneous Oral contraceptives or hormone replacement Sepsis (< 1 month) Serious lung disease, including pneumonia (< 1 month) Abnormal pulmonary function Acute myocardial infarction Congestive heart failure (< 1 month) History of inflammatory bowel disease Medical patient at bed rest Age 61-74 Arthroscopic surgery Major open surgery (> 45 min) Laparoscopic surgery (> 45 min) Malignancy Confined to bed (> 72 hours) Immobilizing plaster cast Central venous access Age >= 75 History of VTE Family history of VTE Factor V Leiden Prothrombin [id number] Lupus anticoagulant Anticardiolipin antibodies Elevated serum homocysteine Heparin-induced thrombocytopenia Other congenital or acquired thrombophilia Stroke (< 1 month) Elective arthroplasty Hip, pelvis, or leg fracture Acute spinal cord injury (< 1 month) Prophylaxis Regimen: Total Risk Factor Score Risk Level Prophylaxis Regimen 0-1 Low Early ambulation 2 Moderate Order ONE of the following: *Sequential Compression Device (SCD) *Heparin 5000 units SQ BID 3-4 Higher Order ONE of the following medications: *Heparin 5000 units SQ TID *Enoxaparin/Lovenox 40 mg SQ daily (WT < 150 kg, CrCl > 30 mL/min) *Enoxaparin/Lovenox 30 mg SQ daily (WT < 150 kg, CrCl > 10-29 mL/min) *Enoxaparin/Lovenox 30 mg SQ BID (WT < 150 kg, CrCl > 30 mL/min) AND/OR *Sequential Compression Device (SCD) 5 or more Highest Order ONE of the following medications: *Heparin 5000 units SQ TID (Preferred with Epidurals) *Enoxaparin/Lovenox 40 mg SQ daily (WT < 150 kg, CrCl > 30 mL/min) *Enoxaparin/Lovenox 30 mg SQ daily (WT < 150 kg, CrCl > 10-29 mL/min) *Enoxaparin/Lovenox 30 mg SQ BID (WT < 150 kg, CrCl > 30 mL/min) AND *Sequential Compression Device (SCD) Assessment and Plan - Assessment (1) Peritoneal dialysis catheter dysfunction Code(s): T85.611A - Breakdown (mechanical) of intraperitoneal dialysis catheter , initial encounter Status: Acute - Plan 27-year-old -[place] male with history of HIV, ESRD on PD, history of childhood lymphoma, and seizure disorder presenting overnight for evaluation of abdominal pain. 1. Abdominal pain with PD catheter dysfunction Pain mostly around PD catheter site with question of dysfunctional catheter IR consulted for catheter repositioning Nephrology following and has ordered peritoneal fluid studies and cultures Lortab as needed Antiemetics PRN 2. ESRD on PD Nephrology consulted and patient to undergo HD Avoid nephrotoxic agents Monitor renal function 3. HIV Resume home antiretrovirals 4. Seizure disorder Resume home antiepileptics Code Status: FULL Discharge Planning: When clinically stable, PD cath functioning, and cleared by nephrology
[2018-01-11] MEDS ORDERED: Heparin 10,000 UNITS/10 ML Vial (for IV use) OTHER PRN (10:30)
--- NOTE | 2018-01-11 11:07 | P.CONNP ---
<YasminLou - Last Filed: 01/11/18 15:47> History of Present Illness Service: Nephrology Consult date: 01/11/18 Requesting Physician: Landy Zafar Reason for Consult: End stage renal disease Primary Care Provider: UNKNOWN History of Present Illness: Patient is a 27-year-old -[place]val[place] male with history of HIV, ESRD on PD, history of childhood lymphoma, and seizure disorder. Presenting to the emergency room with abdominal pain and non functioning PD catheter. Nephrology is consulted for end stage renal disease on peritoneal disease. Patients abdomen is very tender on palpation. The patient is on daily peritoneal dialysis at home and states that his last dialysis was on 01/07. He denies any fever, chills, nausea, vomiting, diarrhea, chest pain, cough, shortness of breath, or decreased appetite. 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 (Acute) S/P BKA (below knee amputation) bilateral (Acute) - Family History Family History: Family History (Last Reviewed 01/11/18 @ 09:04 by Mindy García RN) Mother HIV (human immunodeficiency virus infection) - Tobacco History Second Hand Smoke Exposure: No Smoking Status: Never smoker Tobacco Type: Cigarettes - Alcohol History How Often Do You Have a Drink Containing Alcohol: Monthly or less - Substance Use History Substance History: Active Abuse - Substance Use Type Marijuana Status: Active Route Used: Inhalation Reason for Use: Calm Down, Feels Good, Get High - Travel History Recent Travel in the [place] Within the Last 8 Weeks: No Recent Travel Out of the Country Within the Last 8 Weeks: No - Immunization History Tetanus Immunization: Unsure Medications and Allergies Allergies Allergy/AdvReac Type Severity Reaction Status Date / Time amoxicillin Allergy Severe rash all Verified 01/11/18 01:50 over clindamycin Allergy Severe Desquamating Verified 01/11/18 01:50 rash penicillin G Allergy Severe Anaphylaxis Verified 01/11/18 01:50 vancomycin Allergy Severe Desqumating Verified 01/11/18 01:50 rash Home Medications Medication Instructions Recorded Confirmed Type abacavir 300 mg PO Q12H 10/07/17 01/11/18 History famotidine 20 mg PO DAILY 10/07/17 01/11/18 History lamivudine 150 mg PO DAILY 10/07/17 01/11/18 History levetiracetam [Keppra] 750 mg PO Q12H 10/07/17 01/11/18 History ondansetron HCl [Zofran] 4 mg PO TID PRN 10/07/17 01/11/18 History ritonavir 100 mg PO BID 10/07/17 01/11/18 History Active Medications: Active Medications Heparin Sodium (Porcine) (Heparin Inj) 1,000 units OTHER WITH DIALYSIS PRN PRN Reason: SEE LABEL COMMENTS Ondansetron HCl (Zofran Inj) 4 mg IV.PUSH Q6H PRN PRN Reason: NAUSEA OR VOMITING Sodium Chloride (Ns Flush) 2 ml IV.FLUSH PRN PRN PRN Reason: FLUSH AFTER USING IV ACCESS Sodium Chloride (Ns Flush) 10 ml IV.FLUSH UNSCH PRN PRN Reason: SEE LABEL COMMENTS Exam Vital signs: Vital Signs 01/11/18 01:00 01/11/18 01:49 01/11/18 09:27 Temperature 98.5 F 97.8 F Pulse Rate 80 78 77 Respiratory Rate 16 18 16 Blood Pressure 107/72 114/78 92/66 L Pulse Oximetry 95 100 96 Intake & Output 01/10/18 01/11/18 01/11/18 18:59 06:59 18:59 Weight 49.895 kg 49.895 kg Other: Weight On Admission 49.895 kg Narrative: GENERAL: Alert and oriented SKIN: Warm and dry. NECK: Supple, trachea midline. No JVD. CARDIOVASCULAR: Regular rate and rhythm without murmurs, gallops, or rubs. RESPIRATORY: Breath sounds equal bilaterally. No accessory muscle use. GASTROINTESTINAL: Abdomen soft, flat, tender on palpation. PD catheter. MUSCULOSKELETAL: No cyanosis, or edema. Bilateral Below knee amputation. Partial LUE amputation. BACK: Nontender without obvious deformity. No CVA tenderness. Results - Lab Results 01/11/18 03:20 01/11/18 03:20 Most recent lab results Calcium 7.8 mg/dL (8.5-10.1) L 01/11/18 03:20 Assessment and Plan - Assessment (1) End-stage renal disease on peritoneal dialysis Code(s): N18.6 - End stage renal disease; Z99.2 - Dependence on renal dialysis Status: Acute Plan: End stage renal disease on Peritoneal dialysis Nightly Plan Abdominal tenderness, will obtain cell count and cultures Reported that PD catheter would not flow, hemodialysis assessed and no flow. Interventional radiology consulted for repositioning of PD catheter Plan for PD tonight, for 12 hours. Labs in AM <Gelacio Solis - Last Filed: 01/14/18 21:43> History of Present Illness Primary Care Provider: UNKNOWN [facility] - Medical History Medical History: Medical History (Last Reviewed 01/11/18 @ 13:21 by Charmaine Richardson MD) Lymphoma in remission (Acute) Seizures (Acute) Peritoneal dialysis catheter in place (Acute) HIV (human immunodeficiency virus infection) (Acute) Kidney failure (Acute) Peritoneal dialysis catheter dysfunction Peritoneal dialysis catheter fitting or adjustment Peritoneal dialysis catheter in place - Surgical History Surgical History: Surgical History (Last Updated 01/11/18 @ 13:22 by Charmaine Richardson MD) 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 (Acute) S/P BKA (below knee amputation) bilateral (Acute) - Family History Family History: Family History (Last Reviewed 01/11/18 @ 09:04 by Mindy García RN) Mother HIV (human immunodeficiency virus infection) Exam Vital signs: Vital Signs 01/13/18 23:13 01/14/18 04:00 01/14/18 08:00 Temperature 98.8 F 98.5 F 98.4 F Pulse Rate 99 H 73 77 Respiratory Rate 17 17 16 Blood Pressure 124/95 H 102/69 107/73 Pulse Oximetry 96 94 L 94 L 01/14/18 11:27 Temperature 97.9 F Pulse Rate 82 Respiratory Rate 16 Blood Pressure 109/69 Pulse Oximetry 95 Intake & Output 01/14/18 01/14/18 01/15/18 06:59 18:59 06:59 Other: Date of Last Bowel Movement 01/11/18 Results - Lab Results 01/13/18 04:00 01/13/18 04:00 Most recent lab results Calcium 8.8 mg/dL (8.5-10.1) 01/13/18 04:00 Phosphorus 6.2 mg/dL (2.5-4.9) H 01/13/18 04:00 Assessment and Plan - Assessment (1) End-stage renal disease on peritoneal dialysis Code(s): N18.6 - End stage renal disease; Z99.2 - Dependence on renal dialysis Status: Acute Plan: Patient seen and examined, agree with above. Consult interventional for PD Catheter reposition.
[2018-01-11 13:24] LABS: RBC,Peritoneal Fluid 20 /mm3 (0-0)
[2018-01-11 13:27] LABS: Eosinophils,Peritoneal Fluid 1 %; Mesothelial,Peritoneal Fluid 1 %; Neutrophils,Peritoneal Fluid 76 %
[2018-01-11] MEDS ORDERED: fentaNYL Citrate Inj 100 MCG/2 ML Ampul ONE (15:35)
[2018-01-11] MEDS ORDERED: levETIRAcetam 500 MG Tablet PO SCH (16:00)
[2018-01-11] MEDS ORDERED: Iohexol 350 MG/ML 50 ML Vial (for Rad Diag) IVCONTRAST ONE (16:20)
--- NOTE | 2018-01-11 16:25 | P.RAD ---
Post Procedure Progress Note - Pre Procedure Diagnosis (1) Peritoneal dialysis catheter dysfunction - Post Procedure Diagnosis (1) Peritoneal dialysis catheter dysfunction - Procedure Information Procedure Date: 01/11/18 Supervising Radiologist: Colton Friend Jr, MD Proceduralist/Assist: Carlos A Anesthesia: Other - Plan of Activity Patient to Unit: Nursing Unit Patient Condition: Good Additional Comments: PD catheter coiled in RUQ. Attempted to manipulate out of RUQ but unsuccessful. Catheter injects and aspirates well. See PACS Report for procedural detail/treatment.
[2018-01-11] MEDS: levETIRAcetam 250 MG Tablet PO SCH ×2 (16:46→21:16)
--- NOTE | 2018-01-11 17:33 | IR ---
EXAM DATE: 01/11/2018 12:00 AM EDT AGE/SEX: 27 years / Male INDICATIONS: Patient with a history of end-stage renal disease. Peritoneal dialysis catheter not fun ctioning. CLINICAL DATA: This is the patient's subsequent encounter. Patient reports that signs and symptoms h ave been present for > 1 year and indicates a pain score of 6/10. MEDICAL/SURGICAL HISTORY: Lymphoma. HIV. Seizures. End-stage renal disease Peritoneal dialys is catheter Bilateral below knee amputations. Left below elbow amputation. COMPARISON: [facility] [place]IT[place], 12/12/2017. . FLUORO TIME (min): 2.38 IMAGE SERIES: 4 ACCESS SITE: SEDATION TIME (min): 0 CONTRAST (cc): 20cc Omnipaque (iohexol) 350 MEDICATION(S): 75mg fentanyl (Sublimaze) IV 1.5mg lorazepam (Ativan) IV DEVICE(S): . . PROCEDURE: 1. Fluoroscopically guided central venous catheter exchange. The risks, benefits and alternatives to the procedure were explained and verbal and written consent w as obtained. The site was prepped in sterile fashion. Full sterile technique was used, including ca p, mask, sterile gloves and gown and a large sterile sheet. Hand hygiene and 2% chlorhexidine prep w as utilized per protocol for cutaneous antisepsis with appropriate dry time for site. The skin and s ubcutaneous tissues were infiltrated with local anesthetic solution. Fluoroscopic evaluation of the PD catheter shows a catheter tightly coiled within the right upper brina drant. Injection of contrast into the catheter shows the catheter to be patent. The contrast freely s pills throughout the peritoneal cavity. No loculations observed. Aspiration yields a good return of t he injected material. A stiff angled Glidewire was coiled within the peritoneal cavity. This was perf ormed on multiple occasions. I attempted to manipulate the catheter out of the right upper quadrant b ut this was unsuccessful. Brisk injection and withdrawal of the fluid was noted following the procedu re. CONCLUSION: 1. Peritoneal dialysis catheter manipulation as above. Electronically signed by: Colton Friend MD 01/11/2018 5:32 PM EDT
[2018-01-11] MEDS: Calcium Acetate 667 MG Capsule PO SCH (18:30)
[2018-01-11] MEDS: Lacosamide 50 MG Tablet PO SCH (21:42)
--- NOTE | 2018-01-12 09:19 | P.PN ---
Subjective Interval history: Follow-up for abdominal pain, peritoneal dialysis catheter malfunction. Patient reports his abdominal pain has improved. He received peritoneal dialysis last night however it was reportedly discontinued prior to completion. Denies fevers or chills. Denies nausea/vomiting. He is tolerating oral intake. He complains of diffuse itching due to dry skin, requesting lotion. He has no other medical complaints at this time. Physical Exam Vital signs: Vital Signs 01/11/18 09:27 01/11/18 12:00 01/11/18 17:08 Temperature 97.8 F 98.0 F Pulse Rate 77 69 67 Respiratory Rate 16 16 16 Blood Pressure 92/66 L 99/73 L 83/57 L Pulse Oximetry 96 96 94 L 01/11/18 17:38 01/11/18 20:00 01/12/18 03:58 Temperature 98.7 F 98.1 F Pulse Rate 67 81 76 Respiratory Rate 16 17 17 Blood Pressure 85/62 L 103/71 102/68 Pulse Oximetry 100 92 L 96 01/12/18 07:54 Temperature 98.5 F Pulse Rate 68 Respiratory Rate Blood Pressure 80/56 L Pulse Oximetry 95 Intake & Output 01/11/18 01/12/18 01/12/18 18:59 06:59 18:59 Weight 49.895 kg Other: # Voids 3 Date of Last Bowel Movement 01/11/18 01/11/18 # Bowel Movements 1 Weight On Admission 49.895 kg Narrative: GENERAL: Young male patient in [facility]. SKIN: Warm and dry. No rash. Dry skin. HEENT: Normocephalic. Atraumatic. Pupils equal and round. Mucous membranes pink and moist. CARDIOVASCULAR: Regular rate and rhythm. No murmur appreciated. RESPIRATORY: No accessory muscle use. Clear to auscultation. Breath sounds equal bilaterally. GASTROINTESTINAL: Abdomen soft, non-tender, nondistended. Normoactive bowel sounds x4. PD catheter site covered with dressing, CDI. MUSCULOSKELETAL: BLE amputation and partial LUE amputation. Extremities without clubbing, cyanosis, or edema. NEUROLOGICAL: Awake and alert. No obvious cranial nerve deficits. Normal speech. PSYCHIATRIC: Appropriate mood and affect; insight and judgment normal. Results - Labs CBC & Chem 7: 01/12/18 08:47 01/12/18 08:47 Laboratory Results - last 24 hr 01/11/18 01/11/18 12:15 12:15 Peritoneal RBC 20 H Cancelled Periton Nuc Cells 3695 H Cancelled Periton Neutrophils 76 Cancelled Periton Lymphocytes 5 Cancelled Peritoneal Monocytes 17 Cancelled Peritoneal Eosinophils 1 Cancelled Peritoneal Basophils Cancelled Periton Mesothelial 1 Cancelled Periton Histiocytes Cancelled Peritoneal Plasma Cell Cancelled Peritoneal Other Cells Cancelled Peritoneal Fld Comment Cancelled Microbiology 01/11/18 12:15 Fluid - Peritoneal fluid Gram Stain - Final - Imaging Impressions Catheter Wire Manipulation 01/11/18 00:00 CONCLUSION: 1. Peritoneal dialysis catheter manipulation as above. - Procedures 01/11/18 - IR performed peritoneal dialysis catheter manipulation Assessment and Plan - Assessment (1) Peritoneal dialysis catheter dysfunction Code(s): T85.611A - Breakdown (mechanical) of intraperitoneal dialysis catheter , initial encounter Status: Acute - Plan 27-year-old -Trist[place] male with history of HIV, ESRD on PD, history of childhood lymphoma, and seizure disorder presenting overnight for evaluation of abdominal pain. Abdominal pain with PD catheter dysfunction Pain mostly around PD catheter site with question of dysfunctional catheter 01/11 s/p IR evaluation of peritoneal dialysis catheter, found to be coiled in RUQ, however still functioning well Nephrology following and has ordered peritoneal fluid studies and cultures Lortab as needed Antiemetics PRN -Appreciate assistance from nephrology Possible Peritonitis: patient with leukocytosis WBC 12.5K on presentation, and Peritoneal fluid studies with 3695 peritoneal nucleated cells, concern for peritonitis. -Consult ID for further evaluation -Fluid culture pending ESRD on PD Nephrology consulted and patient to undergo HD Avoid nephrotoxic agents Monitor renal function HIV: chronic, stable Resume home antiretrovirals Seizure disorder: chronic, stable Resume home antiepileptics -Keppra and Vimpat
[2018-01-12 09:27] LABS: Baso # (Auto) 0.1 th/mm3 (0.0-0.2); Baso % (Auto) 0.9 % (0.0-2.0); Eos # (Auto) 0.6 th/mm3 (0.0-0.4); Eos % (Auto) 6.4 % (0.0-4.0); Hematocrit 34.8 % (39.0-51.0); Lymph # (Auto) 1.7 th/mm3 (1.0-4.8); Lymph % (Auto) 19.2 % (9.0-44.0); Mean Corpuscular HGB Conc 31.7 % (32.0-36.0); Mean Corpuscular Volume 85.2 fL (80.0-100.0); Mean Platelet Volume 8.9 fL (7.0-11.0); Mono # (Auto) 0.8 th/mm3 (0.0-0.9); Mono % (Auto) 8.9 % (0.0-8.0); Neut # (Auto) 5.6 th/mm3 (1.8-7.7); Neut % (Auto) 64.6 % (16.0-70.0); Platelet Count 354 th/mm3 (150-450); Red Blood Count 4.08 mil/mm3 (4.50-5.90); Red Cell Distribution Width 16.1 % (11.6-17.2); White Blood Count 8.7 th/mm3 (4.0-11.0)
[2018-01-12 09:48] LABS: Albumin 3.1 g/dL (3.4-5.0); Calcium 8.1 mg/dL (8.5-10.1); Carbon Dioxide 22.6 meq/L (21.0-32.0); Potassium 3.3 meq/L (3.5-5.1)
[2018-01-12 09:49] LABS: Phosphorus 5.4 mg/dL (2.5-4.9)
[2018-01-12 10:17] LABS: Eosinophils 6 % (0-4); Howell-Jolly Bodies Present; Lymphocytes 31 % (9-44); Monocytes 8 % (0-8); Tallied Nucleated RBC 27 (0-0); Target Cells 1+
[2018-01-12 10:18] LABS: Acanthocytes Occ; Ovalocytes 1+; Platelet Estimate Normal (Normal)
--- NOTE | 2018-01-12 10:50 | P.PNNP ---
Subjective Interval history: Resting on right side. No abdominal pain this am on palpation. Peritoneal dialysis last night, machine was turned off without being completed. <Lou Hoffman - Last Filed: 01/12/18 10:42> Physical Exam Vital signs: Vital Signs 01/11/18 12:00 01/11/18 17:08 01/11/18 17:38 Temperature 98.0 F Pulse Rate 69 67 67 Respiratory Rate 16 16 16 Blood Pressure 99/73 L 83/57 L 85/62 L Pulse Oximetry 96 94 L 100 01/11/18 20:00 01/12/18 03:58 01/12/18 07:54 Temperature 98.7 F 98.1 F 98.5 F Pulse Rate 81 76 68 Respiratory Rate 17 17 Blood Pressure 103/71 102/68 80/56 L Pulse Oximetry 92 L 96 95 Intake & Output 01/11/18 01/12/18 01/12/18 18:59 06:59 18:59 Weight 49.895 kg Other: # Voids 3 Date of Last Bowel Movement 01/11/18 01/11/18 # Bowel Movements 1 Weight On Admission 49.895 kg Narrative: GENERAL: Alert and oriented SKIN: Warm and dry. NECK: Supple, trachea midline. No JVD. CARDIOVASCULAR: Regular rate and rhythm without murmurs, gallops, or rubs. RESPIRATORY: Breath sounds equal bilaterally. No accessory muscle use. GASTROINTESTINAL: Abdomen soft, flat, tender on palpation. PD catheter. MUSCULOSKELETAL: No cyanosis, or edema. Bilateral Below knee amputation. Partial LUE amputation. BACK: Nontender without obvious deformity. No CVA tenderness. <Lou Hoffman - Last Filed: 01/12/18 10:42> Vital signs: Intake & Output 01/14/18 01/15/18 01/15/18 18:59 06:59 18:59 Other: Date of Last Bowel Movement 01/11/18 <Gelacio Solis - Last Filed: 01/15/18 17:51> Assessment and Plan - Assessment (1) End-stage renal disease on peritoneal dialysis Code(s): N18.6 - End stage renal disease; Z99.2 - Dependence on renal dialysis Status: Acute Plan: End stage renal disease on Peritoneal dialysis Nightly Plan Abdominal tenderness has resolved today, Peritoneal nucleated cells at 3695, culture pending ID consulted for possible peritonitis, multiple drug allergies. Interventional radiology yesterday for repositioning, attempted to manipulate out of RUQ but unsuccessful. Catheter injects and aspirated well. PD last night was not completed, either PD catheter was not working or was turned off inadvertently. Will do PD during the day today to assess for any complications. Potassium level at 3.3 today will give 1 X replacement po4 elevated continue PhosLo <Lou Hoffman - Last Filed: 01/12/18 10:42> - Assessment (1) End-stage renal disease on peritoneal dialysis Code(s): N18.6 - End stage renal disease; Z99.2 - Dependence on renal dialysis Status: Acute Plan: Patient seen and examine, agree with above. Has problem with cycler yesterday. To use PD today and watch for catheter function. Abd. pain is better, Creatinine is slightly better. <Gelacio Solis - Last Filed: 01/15/18 17:51>
[2018-01-12] MEDS: levETIRAcetam 250 MG Tablet PO SCH ×2 (10:51→21:27)
[2018-01-12] MEDS: Lacosamide 50 MG Tablet PO SCH ×2 (10:51→21:27)
[2018-01-12] MEDS: Calcium Acetate 667 MG Capsule PO SCH ×3 (10:52→18:26)
[2018-01-12] MEDS: Famotidine 20 MG Tablet PO SCH ×2 (10:52→21:27)
[2018-01-12] MEDS: Lactic Acid (Ammonium Lactate) 12% Lotion 225 GM Bottle TOPICAL SCH ×2 (12:46→21:29)
--- NOTE | 2018-01-12 15:33 | MB ---
cc: Shady Agosto MD DATE: 01/12/2018 REQUESTING PHYSICIAN: Lou Celis MD ATTENDING PHYSICIAN: Dr. Matson. REASON FOR CONSULTATION: Antibiotic recommendation for possible peritonitis; MULTIPLE DRUG ALLERGIES. HISTORY OF PRESENT ILLNESS: This is a 27-year-old black male with history of end-stage renal disease. The patient does peritoneal dialysis. He has history of bilateral BKA and HIV as well. The patient presented to the emergency department because of abdominal pain. It is reported that his last hemodialysis before coming to the emergency department was 4 days prior. The patient has had no fever and his white blood cell count was mildly elevated at 12.5 yesterday and today it is normal. The patient is a poor historian and very withdrawn. His demeanor is such that he does not want to be bothered and his answers to questions are yes/no answers. He is known to have such demeanor in the past. Peritoneal fluid culture was sent and the result is pending. The peritoneal fluid count included 3695 nucleated cells and 76% neutrophils. The patient denies abdominal pain currently. PAST MEDICAL HISTORY: HIV, end-stage kidney disease, lymphoma in remission, seizure disorder, left below-elbow amputation, bilateral below-knee amputation. ALLERGIES: AMOXICILLIN, CLINDAMYCIN, PENICILLIN, VANCOMYCIN. MEDICATIONS: 1. Diagen. 2. Epivir 3. Keppra. 4. Vimpat. 5. Pepcid. 6. PhosLo. 7. [place] 5. 8. Norvir. SOCIAL HISTORY: No tobacco use. Positive alcohol use, approximately monthly. Positive marijuana use. FAMILY HISTORY: Noncontributory. REVIEW OF SYSTEMS: All systems have been reviewed and are negative. PHYSICAL EXAMINATION: GENERAL: This is a slender male who is in no acute distress. He is awake and alert. VITAL SIGNS: Includes temperature 98.5, BP 80/56, respirations 18, heart rate 68. HEENT: The head is atraumatic. Extraocular movements intact. Pupils reactive to light. No icterus. Oropharynx, mucosa is moist. NECK: Supple. No swelling or adenopathy. LUNGS: Decreased clear breath sounds. HEART: Regular S1, S2. No murmurs heard. ABDOMEN: Decreased bowel sounds. Soft. No tenderness on palpation. Peritoneal dialysis catheter in place and there is no erythema. RECTAL: Not performed. EXTREMITIES: No clubbing, cyanosis or edema. SKIN: No rash. NEUROLOGIC: No gross focal finding. PSYCHIATRIC: The patient has a flat affect and appears withdrawn. LABORATORY DATA: WBC 8.7, platelets 354, hemoglobin 11.0, neutrophils 64%, lymphocytes 19%. Creatinine 7.33, BUN 65, sodium 137. Estimated GFR 11. IMAGING: Fluoroscopic evaluation of the peritoneal dialysis catheter showed the catheter tightly coiled within the right upper quadrant and the catheter was shown to be patent. No loculations. We will observe. Aspiration yielded good return of injected material. IMPRESSION: 1. Abdominal pain. The patient with end-stage renal disease, who undergoes peritoneal dialysis which he does at home. Possibility of peritonitis exists; however, pain has improved and the patient has no elevated white blood cell count. 2. MULTIPLE ANTIBIOTIC ALLERGIES: 3. Human immunodeficiency virus disease. Currently, the patient appears very calm and has no abdominal pain. The abdominal pain which the patient experienced possibly could be structural related to his dialysis catheter and not infection. paid internship reports that that there was fibrin strands coming from the peritoneal catheter. RECOMMENDATIONS: 1. Monitor the peritoneal dialysis culture. 2. Hold off on antibiotics for now. 3. Monitor clinical response; the Gram stain from the fluid. The patient is about to undergo a peritoneal dialysis exchange. Thank you for this consultation. I will follow the patient's peritoneal dialysis culture and clinical status along with you and will make further recommendations if necessary. MD CHARLOTTE Osorio/[email or web address]/[email or web address] , 11:18 AM , 11:32 AM ANGE
[2018-01-13 04:27] LABS: Baso # (Auto) 0.1 th/mm3 (0.0-0.2); Baso % (Auto) 0.8 % (0.0-2.0); Eos # (Auto) 0.6 th/mm3 (0.0-0.4); Eos % (Auto) 6.8 % (0.0-4.0); Hemoglobin 10.7 gm/dL (13.0-17.0); Lymph # (Auto) 2.5 th/mm3 (1.0-4.8); Lymph % (Auto) 26.3 % (9.0-44.0); Mean Corpuscular HGB Conc 31.4 % (32.0-36.0); Mean Corpuscular Hemoglobin 26.8 pg (27.0-34.0); Mean Corpuscular Volume 85.2 fL (80.0-100.0); Mean Platelet Volume 8.8 fL (7.0-11.0); Mono # (Auto) 0.9 th/mm3 (0.0-0.9); Mono % (Auto) 9.2 % (0.0-8.0); Neut # (Auto) 5.4 th/mm3 (1.8-7.7); Neut % (Auto) 56.9 % (16.0-70.0); Platelet Count 350 th/mm3 (150-450); Red Blood Count 3.99 mil/mm3 (4.50-5.90); Red Cell Distribution Width 16.1 % (11.6-17.2); White Blood Count 9.5 th/mm3 (4.0-11.0)
[2018-01-13 05:11] LABS: Albumin 2.8 g/dL (3.4-5.0); Calcium 8.8 mg/dL (8.5-10.1); Carbon Dioxide 24.3 meq/L (21.0-32.0); Phosphorus 6.2 mg/dL (2.5-4.9); Potassium 3.1 meq/L (3.5-5.1)
[2018-01-13 07:43] LABS: Eosinophils 3 % (0-4); Lymphocytes 18 % (9-44); Monocytes 16 % (0-8); Tallied Nucleated RBC 8 (0-0); Target Cells 2+
[2018-01-13 07:44] LABS: Ovalocytes 1+
[2018-01-13 07:45] LABS: Platelet Estimate Normal (Normal); Platelet Morphology Normal (Normal)
[2018-01-13 07:47] LABS: Burr Cells 1+; Howell-Jolly Bodies Present
[2018-01-13] MEDS: Lacosamide 50 MG Tablet PO SCH ×2 (09:45→22:40)
[2018-01-13] MEDS: Famotidine 20 MG Tablet PO SCH ×2 (09:45→22:40)
[2018-01-13] MEDS: levETIRAcetam 250 MG Tablet PO SCH ×2 (09:45→22:39)
[2018-01-13] MEDS: Lactic Acid (Ammonium Lactate) 12% Lotion 225 GM Bottle TOPICAL SCH ×2 (09:45→22:40)
[2018-01-13] MEDS: Calcium Acetate 667 MG Capsule PO SCH ×3 (09:45→17:40)
--- NOTE | 2018-01-13 11:29 | P.PNNP ---
Subjective Interval history: Resting on side. Denies any shortness of breath, chest pain, abdominal pain, nausea, or vomiting. PD yesterday tolerated well. <Lou Hoffman - Last Filed: 01/13/18 11:23> Physical Exam Vital signs: Vital Signs 01/12/18 11:44 01/12/18 15:45 01/12/18 20:00 Temperature 98.5 F 98.4 F 98.2 F Pulse Rate 74 68 81 Respiratory Rate 18 Blood Pressure 136/85 106/73 103/68 Pulse Oximetry 95 95 95 01/13/18 00:00 01/13/18 04:00 01/13/18 07:23 Temperature 98.9 F 98.6 F 98.0 F Pulse Rate 75 67 69 Respiratory Rate 16 Blood Pressure 110/71 94/54 L 98/64 L Pulse Oximetry 93 L 93 L 93 L Intake & Output 01/12/18 01/13/18 01/13/18 18:59 06:59 18:59 Other: Date of Last Bowel Movement 01/11/18 Narrative: GENERAL: Alert and oriented SKIN: Warm and dry. NECK: Supple, trachea midline. No JVD. CARDIOVASCULAR: Regular rate and rhythm without murmurs, gallops, or rubs. RESPIRATORY: Breath sounds equal bilaterally. No accessory muscle use. GASTROINTESTINAL: Abdomen soft, flat, tender on palpation. PD catheter. MUSCULOSKELETAL: No cyanosis, or edema. Bilateral Below knee amputation. Partial LUE amputation. BACK: Nontender without obvious deformity. No CVA tenderness. <Lou Hoffman - Last Filed: 01/13/18 11:23> Assessment and Plan - Assessment (1) End-stage renal disease on peritoneal dialysis Code(s): N18.6 - End stage renal disease; Z99.2 - Dependence on renal dialysis Status: Acute Plan: End stage renal disease on Peritoneal dialysis Nightly Plan Abdominal tenderness has resolved today, Peritoneal nucleated cells at 3695, culture pending ID consulted for possible peritonitis, multiple drug allergies. Peritoneal dialysis yesterday tolerated well without complications. Hypokalemia, replacement given APD tonight will run for 12 hours. PO4 elevated phoslo increased Complaining of pruritus, Atarax ordered PRN <Lou Hoffman - Last Filed: 01/13/18 11:23> - Assessment (1) End-stage renal disease on peritoneal dialysis Code(s): N18.6 - End stage renal disease; Z99.2 - Dependence on renal dialysis Status: Acute Plan: Patient seen an examined, agree with above. Seen by ID, has no tenderness. PD Culture remain negative. Will repeat PD cell count. <Gelacio Solis - Last Filed: 01/18/18 17:11>
--- NOTE | 2018-01-13 12:18 | P.PNID ---
Subjective Remarks: This is a 27-year-old black male with history of end-stage renal disease. The patient does peritoneal dialysis. He has history of bilateral BKA and HIV as well. The patient presented to the emergency department because of abdominal pain. It is reported that his last hemodialysis before coming to the emergency department was 4 days prior. The patient has had no fever and his white blood cell count was mildly elevated at 12.5 yesterday and today it is normal. The patient is a poor historian and very withdrawn. His demeanor is such that he does not want to be bothered and his answers to questions are yes/no answers. He is known to have such demeanor in the past. Peritoneal fluid culture was sent and the result is pending. The peritoneal fluid count included 3695 nucleated cells and 76% neutrophils. Patient says he feels okay. Denies abdominal pain. No nausea. No fever. Peritoneal fluid culture has no growth at 48 hours. Past Medical History: PAST MEDICAL HISTORY: HIV, end-stage kidney disease, lymphoma in remission, seizure disorder, left below-elbow amputation, bilateral below-knee amputation. Allergies/Adverse Reactions: Allergies amoxicillin Allergy (Severe, Verified 01/11/18 01:50) rash all over clindamycin Allergy (Severe, Verified 01/11/18 01:50) Desquamating rash penicillin G Allergy (Severe, Verified 01/11/18 01:50) Anaphylaxis vancomycin Allergy (Severe, Verified 01/11/18 01:50) Desqumating rash Objective Vital Signs 01/12/18 15:45 01/12/18 20:00 01/13/18 00:00 Temperature 98.4 F 98.2 F 98.9 F Pulse Rate 68 81 75 Respiratory Rate 17 Blood Pressure 106/73 103/68 110/71 Pulse Oximetry 95 95 93 L 01/13/18 04:00 01/13/18 07:23 01/13/18 11:41 Temperature 98.6 F 98.0 F 98.6 F Pulse Rate 67 69 78 Respiratory Rate 18 16 16 Blood Pressure 94/54 L 98/64 L 98/64 L Pulse Oximetry 93 L 93 L 100 Intake & Output 01/12/18 01/13/18 01/13/18 18:59 06:59 18:59 Other: Date of Last Bowel Movement 01/11/18 01/11/18 12:15 Fluid - Peritoneal fluid Gram Stain - Final 01/11/18 12:15 Fluid - Peritoneal fluid Body Fluid Culture - Preliminary No growth in 48 hours Lab - Hematology Results 01/12/18 01/13/18 08:47 04:00 WBC 8.7 9.5 RBC 4.08 L 3.99 L Hgb 11.0 L 10.7 L Hct 34.8 L 34.0 L MCV 85.2 85.2 MCH 27.0 26.8 L MCHC 31.7 L 31.4 L RDW 16.1 16.1 Plt Count 354 350 MPV 8.9 8.8 Prelim Diff (Auto) Slide review pending Slide review pending Neut % (Auto) 64.6 56.9 Lymph % (Auto) 19.2 26.3 [place] % (Auto) 8.9 H 9.2 H Eos % (Auto) 6.4 H 6.8 H Baso % (Auto) 0.9 0.8 Neut # (Auto) 5.6 5.4 Lymph # (Auto) 1.7 2.5 [place] # (Auto) 0.8 0.9 Eos # (Auto) 0.6 H 0.6 H Baso # (Auto) 0.1 0.1 WBC Differential Manual diff final Manual diff final Seg Neuts % (Manual) 55 61 Band Neuts % (Manual) 1 Lymphocytes % (Manual) 31 18 Monocytes % (Manual) 8 16 H Eosinophils % (Manual) 6 H 3 Basophils % (Manual) 1 Abs Neuts (Manual) 4.8 5.9 Nucleated RBCs/100 WBC 27 H 8 H Differential Comment . . Platelet Estimate Normal Normal Platelet Morphology Enlarged H Normal Target Cells 1+ H 2+ H Ovalocytes 1+ H 1+ H [place] Bodies Present H Present H [place]iano Cells 1+ H Acanthocytes (Spur) Occ H Lab - Chemistry Results 01/12/18 01/13/18 08:47 04:00 Sodium 137 136 Potassium 3.3 L 3.1 L Chloride 101 99 Carbon Dioxide 22.6 24.3 Anion Gap 13 13 BUN 65 H 47 H Creatinine 7.33 H 6.27 H Estimated GFR 11 L 13 L Random Glucose 81 112 H Calcium 8.1 L 8.8 Phosphorus 5.4 H 6.2 H Albumin 3.1 L 2.8 L Imaging: ITS Impressions Catheter Wire Manipulation 01/11/18 00:00 CONCLUSION: 1. Peritoneal dialysis catheter manipulation as above. Physical Exam: PHYSICAL EXAMINATION: GENERAL: No acute distress. He is awake and alert. HEENT: The head is atraumatic. Extraocular movements intact. Pupils reactive to light. No icterus. Oropharynx, mucosa is moist. NECK: Supple. No swelling or adenopathy. LUNGS: Clear breath sounds. HEART: Regular S1, S2. No murmurs heard. ABDOMEN: Decreased bowel sounds. Soft. No tenderness on palpation. Peritoneal dialysis catheter in place and there is no erythema. EXTREMITIES: No clubbing, cyanosis or edema. SKIN: No rash. NEUROLOGIC: No gross focal finding. PSYCHIATRIC: Flat affect. Assessment and Plan - Plan IMPRESSION: 1. Abdominal pain. The patient with end-stage renal disease, who undergoes peritoneal dialysis which he does at home. white blood cell count remain normal. Peritoneal fluid culture is negative. 2. MULTIPLE ANTIBIOTIC ALLERGIES: 3. Human immunodeficiency virus disease. Clinically stable. RECOMMENDATIONS: 1. Monitor the peritoneal dialysis culture. If negative at 72 hours, He can be discharged without antibiotics. 2. Hold off on antibiotics for now.
--- NOTE | 2018-01-13 16:41 | P.PN ---
Subjective Interval history: Follow-up for abdominal pain, ESRD on PD. The patient received peritoneal dialysis last night. He states his abdominal pain has improved. He has been tolerating oral intake. Denies any fevers or chills. Denies any nausea or vomiting. Physical Exam Vital signs: Vital Signs 01/12/18 20:00 01/13/18 00:00 01/13/18 04:00 Temperature 98.2 F 98.9 F 98.6 F Pulse Rate 81 75 67 Respiratory Rate Blood Pressure 103/68 110/71 94/54 L Pulse Oximetry 95 93 L 93 L 01/13/18 07:23 01/13/18 11:41 01/13/18 16:31 Temperature 98.0 F 98.6 F 98.7 F Pulse Rate 69 78 65 Respiratory Rate 16 Blood Pressure 98/64 L 98/64 L 107/83 Pulse Oximetry 93 L 100 97 Intake & Output 01/12/18 01/13/18 01/13/18 18:59 06:59 18:59 Other: Date of Last Bowel Movement 01/11/18 01/11/18 Narrative: GENERAL: Young male patient in NAD. SKIN: Warm and dry. No rash. Dry skin. HEENT: Normocephalic. Atraumatic. Pupils equal and round. Mucous membranes pink and moist. CARDIOVASCULAR: Regular rate and rhythm. No murmur appreciated. RESPIRATORY: No accessory muscle use. Clear to auscultation. Breath sounds equal bilaterally. GASTROINTESTINAL: Abdomen soft, non-tender, nondistended. Normoactive bowel sounds x4. PD catheter site covered with dressing, CDI. MUSCULOSKELETAL: BLE amputation and partial LUE amputation. Extremities without clubbing, cyanosis, or edema. NEUROLOGICAL: Awake and alert. No obvious cranial nerve deficits. Normal speech. PSYCHIATRIC: Appropriate mood and affect; insight and judgment normal. Results - Labs CBC & Chem 7: 01/13/18 04:00 01/13/18 04:00 Laboratory Results - last 24 hr 01/13/18 01/13/18 04:00 04:00 WBC 9.5 RBC 3.99 L Hgb 10.7 L Hct 34.0 L MCV 85.2 MCH 26.8 L MCHC 31.4 L RDW 16.1 Plt Count 350 MPV 8.8 Prelim Diff (Auto) Slide review pending Neut % (Auto) 56.9 Lymph % (Auto) 26.3 [place] % (Auto) 9.2 H Eos % (Auto) 6.8 H Baso % (Auto) 0.8 Neut # (Auto) 5.4 Lymph # (Auto) 2.5 [place] # (Auto) 0.9 Eos # (Auto) 0.6 H Baso # (Auto) 0.1 WBC Differential Manual diff final Seg Neuts % (Manual) 61 Band Neuts % (Manual) 1 Lymphocytes % (Manual) 18 Monocytes % (Manual) 16 H Eosinophils % (Manual) 3 Basophils % (Manual) 1 Abs Neuts (Manual) 5.9 Nucleated RBCs/100 WBC 8 H Differential Comment . Platelet Estimate Normal Platelet Morphology Normal Target Cells 2+ H Ovalocytes 1+ H [place] Bodies Present H [place] Cells 1+ H Sodium 136 Potassium 3.1 L Chloride 99 Carbon Dioxide 24.3 Anion Gap 13 BUN 47 H Creatinine 6.27 H Estimated GFR 13 L Random Glucose 112 H Calcium 8.8 Phosphorus 6.2 H Albumin 2.8 L Microbiology 01/11/18 12:15 Fluid - Peritoneal fluid Gram Stain - Final 01/11/18 12:15 Fluid - Peritoneal fluid Body Fluid Culture - Preliminary No growth in 48 hours - Imaging Catheter Wire Manipulation 01/11/18 00:00 CONCLUSION: 1. Peritoneal dialysis catheter manipulation as above. - Procedures 01/11/18 - IR performed peritoneal dialysis catheter manipulation Assessment and Plan - Assessment (1) Peritoneal dialysis catheter dysfunction Code(s): T85.611A - Breakdown (mechanical) of intraperitoneal dialysis catheter , initial encounter Status: Acute - Plan 27-year-old -Russian male with history of HIV, ESRD on PD, history of childhood lymphoma, and seizure disorder presenting overnight for evaluation of abdominal pain. Abdominal pain with PD catheter dysfunction Pain mostly around PD catheter site with question of dysfunctional catheter 01/11 s/p IR evaluation of peritoneal dialysis catheter, found to be coiled in RUQ, however still functioning well Nephrology following and has ordered peritoneal fluid studies and cultures Lortab as needed Antiemetics PRN -Appreciate assistance from nephrology -Tolerated peritoneal dialysis last night Possible Peritonitis: patient with leukocytosis WBC 12.5K on presentation, and Peritoneal fluid studies with 3695 peritoneal nucleated cells, concern for peritonitis. -Consult ID for further evaluation -Fluid culture so far with no growth at 48 hours -ID recommending hold off on antibiotics and can discharge without antibiotics if cultures negative at 72 hours ESRD on PD Nephrology consulted and patient to undergo HD Avoid nephrotoxic agents Monitor renal function HIV: chronic, stable Resume home antiretrovirals Seizure disorder: chronic, stable Resume home antiepileptics -Keppra and Vimpat Eczema: Acute on chronic -Continue Lac-Hydrin -Hydroxyzine as needed for itching Discharge Planning: Possible discharge tomorrow 01/14 if patient continues to tolerate peritoneal dialysis and if peritoneal fluid culture negative times 72 hours.
[2018-01-13 20:26] LABS: RBC,Peritoneal Fluid 0 /mm3 (0-0)
[2018-01-13 20:28] LABS: Eosinophils,Peritoneal Fluid 18 %; Neutrophils,Peritoneal Fluid 59 %
[2018-01-14] MEDS: Calcium Acetate 667 MG Capsule PO SCH ×2 (09:21→13:34)
[2018-01-14] MEDS: levETIRAcetam 250 MG Tablet PO SCH (09:21)
[2018-01-14] MEDS: Lacosamide 50 MG Tablet PO SCH (09:21)
[2018-01-14] MEDS: Famotidine 20 MG Tablet PO SCH (09:21)
--- NOTE | 2018-01-14 09:41 | P.PN ---
Subjective Interval history: Follow-up for abdominal pain, ESRD on PD, ruling out peritonitis. The patient reports feeling much better over the past few days. He has been tolerating his peritoneal dialysis. Denies any abdominal pain. Denies any fevers or chills. He is tolerating oral intake. He wants to go home. Physical Exam Vital signs: Vital Signs 01/13/18 11:41 01/13/18 16:31 01/13/18 20:00 Temperature 98.6 F 98.7 F 98.7 F Pulse Rate 78 65 90 Respiratory Rate Blood Pressure 98/64 L 107/83 133/97 H Pulse Oximetry 100 97 92 L 01/13/18 23:13 01/14/18 04:00 01/14/18 08:00 Temperature 98.8 F 98.5 F 98.4 F Pulse Rate 99 H 73 77 Respiratory Rate Blood Pressure 124/95 H 102/69 107/73 Pulse Oximetry 96 94 L 94 L Intake & Output 01/13/18 01/14/18 01/14/18 18:59 06:59 18:59 Other: Date of Last Bowel Movement 01/11/18 Narrative: GENERAL: Young male patient in NAD. SKIN: Warm and dry. No rash. Dry skin. HEENT: Normocephalic. Atraumatic. Pupils equal and round. Mucous membranes pink and moist. CARDIOVASCULAR: Regular rate and rhythm. No murmur appreciated. RESPIRATORY: No accessory muscle use. Clear to auscultation. Breath sounds equal bilaterally. GASTROINTESTINAL: Abdomen soft, non-tender, nondistended. Normoactive bowel sounds x4. PD catheter site covered with dressing, CDI. MUSCULOSKELETAL: BLE amputation and partial LUE amputation. Extremities without clubbing, cyanosis, or edema. NEUROLOGICAL: Awake and alert. No obvious cranial nerve deficits. Normal speech. PSYCHIATRIC: Appropriate mood and affect; insight and judgment normal. Results - Labs CBC & Chem 7: 01/13/18 04:00 01/13/18 04:00 Laboratory Results - last 24 hr 01/13/18 18:40 Peritoneal RBC 0 Periton Nuc Cells 497 H Periton Neutrophils 59 Periton Lymphocytes 11 Peritoneal Monocytes 12 Peritoneal Eosinophils 18 Microbiology 01/11/18 12:15 Fluid - Peritoneal fluid Gram Stain - Final 01/11/18 12:15 Fluid - Peritoneal fluid Body Fluid Culture - Preliminary No growth in 48 hours - Imaging Catheter Wire Manipulation 01/11/18 00:00 CONCLUSION: 1. Peritoneal dialysis catheter manipulation as above. - Procedures 01/11/18 - IR performed peritoneal dialysis catheter manipulation Assessment and Plan - Assessment (1) Peritoneal dialysis catheter dysfunction Code(s): T85.611A - Breakdown (mechanical) of intraperitoneal dialysis catheter , initial encounter Status: Acute - Plan 27-year-old -[place] male with history of HIV, ESRD on PD, history of childhood lymphoma, and seizure disorder presenting overnight for evaluation of abdominal pain. Abdominal pain with PD catheter dysfunction Pain mostly around PD catheter site with question of dysfunctional catheter 01/11 s/p IR evaluation of peritoneal dialysis catheter, found to be coiled in RUQ, however still functioning well Nephrology following and has ordered peritoneal fluid studies and cultures Lortab as needed Antiemetics PRN -Appreciate assistance from nephrology -Tolerated peritoneal dialysis over the past 2 nights, stable for discharge. Possible Peritonitis: patient with leukocytosis WBC 12.5K on presentation, and Peritoneal fluid studies with 3695 peritoneal nucleated cells, concern for peritonitis. -Consult ID for further evaluation -Fluid culture so far with no growth -ID recommending hold off on antibiotics and can discharge without antibiotics if cultures negative at 72 hours -Peritoneal fluid cultures negative times 72 hours today ESRD on PD Nephrology consulted and patient to undergo HD Avoid nephrotoxic agents Monitor renal function -Continue peritoneal dialysis at home HIV: chronic, stable Resume home antiretrovirals Seizure disorder: chronic, stable Resume home antiepileptics -Keppra and Vimpat Eczema: Acute on chronic -Continue Lac-Hydrin -Hydroxyzine as needed for itching Discharge Planning: Plan for discharge today if cleared by nephrology. See discharge summary.
--- NOTE | 2018-01-14 09:59 | P.PNNP ---
Subjective Interval history: APD last night, tolerated well. Denies any shortness of breath, chest pain, nausea, or vomiting. VSS and afebrile. <Lou Hoffman - Last Filed: 01/14/18 09:53> Physical Exam Vital signs: Vital Signs 01/13/18 11:41 01/13/18 16:31 01/13/18 20:00 Temperature 98.6 F 98.7 F 98.7 F Pulse Rate 78 65 90 Respiratory Rate Blood Pressure 98/64 L 107/83 133/97 H Pulse Oximetry 100 97 92 L 01/13/18 23:13 01/14/18 04:00 01/14/18 08:00 Temperature 98.8 F 98.5 F 98.4 F Pulse Rate 99 H 73 77 Respiratory Rate Blood Pressure 124/95 H 102/69 107/73 Pulse Oximetry 96 94 L 94 L Intake & Output 01/13/18 01/14/18 01/14/18 18:59 06:59 18:59 Other: Date of Last Bowel Movement 01/11/18 Narrative: GENERAL: Alert and oriented SKIN: Warm and dry. NECK: Supple, trachea midline. No JVD. CARDIOVASCULAR: Regular rate and rhythm without murmurs, gallops, or rubs. RESPIRATORY: Breath sounds equal bilaterally. No accessory muscle use. GASTROINTESTINAL: Abdomen soft, flat, tender on palpation. PD catheter dressing intact. MUSCULOSKELETAL: No cyanosis, or edema. Bilateral Below knee amputation. Partial LUE amputation. BACK: Nontender without obvious deformity. No CVA tenderness. <Lou Hoffman - Last Filed: 01/14/18 09:53> Assessment and Plan - Assessment (1) End-stage renal disease on peritoneal dialysis Code(s): N18.6 - End stage renal disease; Z99.2 - Dependence on renal dialysis Status: Acute Plan: End stage renal disease on Peritoneal dialysis Nightly Plan Abdominal tenderness has resolved, VSS and afebrile Peritoneal culture has thus far remained negative ID consulted for possible peritonitis, no antibiotics ordered thus far awaiting cultures results Peritoneal culture repeated and Nuc cells have decreased at 497 from 3695 Continue APD nightly. <Lou Hoffman - Last Filed: 01/14/18 09:53> - Assessment (1) End-stage renal disease on peritoneal dialysis Code(s): N18.6 - End stage renal disease; Z99.2 - Dependence on renal dialysis Status: Acute Plan: Patient seen an examined, agree with above. PD cell count decreased, culture so far negative. If discharge, will follow as out patient. <Gelacio Solis - Last Filed: 01/18/18 17:25>
[2018-01-14 11:30] VITALS: BP 109/69; PULSE 82; RESP 16; TEMP 97.9; O2SAT 95
--- NOTE | 2018-01-14 13:33 | P.DS ---
Date of admission: 01/11/18 06:45 Primary care physician: UNKNOWN Brief History from admission: 27-year-old -[place] male with history of HIV, ESRD on PD, history of childhood lymphoma, and seizure disorder presenting overnight for evaluation of abdominal pain. The patient is on daily peritoneal dialysis at home and states that his last dialysis was on 01/07. 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 Pain is mostly around the catheter site but upon exam he states he is tender everywhere. He denies any fever, chills, nausea, vomiting, diarrhea, chest pain, cough, shortness of breath, or decreased appetite. 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 Solis whom he sees once a month. Apparently per nursing PD catheter would not flow. PMH: HIV, ESRD on HD, childhood lymphoma, seizure disorder Surgical Hx: Bilateral BKA, partial LUE amputation, peritoneal catheter placement Family Hx: Mother with HIV Social Hx: Lives with grandmother, daily marijuana use, occasional alcohol use Patient update on day of discharge: See progress note from today. DS: Diagnosis - Discharge Diagnosis (1) Peritoneal dialysis catheter dysfunction Status: Acute DS: Medications - Discharge Medications Prescriptions: ammonium lactate [AmLactin] 1 applicatio TOPICAL BID #1 tube calcium acetate 1,334 mg PO TID 30 Days #180 cap hydroxyzine HCl 25 mg PO Q8H PRN #21 tab PRN Reason: Itching DS: Summary Hospital Course: 27-year-old -[place] male with history of HIV, ESRD on PD, history of childhood lymphoma, and seizure disorder presenting overnight for evaluation of abdominal pain. Abdominal pain with PD catheter dysfunction. Pain mostly around PD catheter site with question of dysfunctional catheter. 01/11 s/p IR evaluation of peritoneal dialysis catheter, found to be coiled in RUQ, however still functioning well. Nephrology following and has ordered peritoneal fluid studies and cultures. Culture negative [id number]. Given Lortab as needed, Antiemetics PRN. Appreciate assistance from nephrology. Tolerated peritoneal dialysis over the past 2 nights without any abdominal pain, stable for discharge. Discussed with COMMUNITY SERVICE SPECIALIST with nephrology, cleared for discharge if cleared by ID. Concern for Peritonitis: patient with leukocytosis WBC 12.5K on presentation, and Peritoneal fluid studies with 3695 peritoneal nucleated cells, concern for peritonitis. Consulted ID for further evaluation. Fluid cultures with NGTD. ID recommending hold off on antibiotics and can discharge without antibiotics if cultures negative at 72 hours. Peritoneal fluid cultures negative x72 hours on day of discharge. ESRD on PD: Nephrology consulted and patient to undergo PD. Avoid nephrotoxic agents. Monitor renal function, improved. Continue peritoneal dialysis at home as previous. HIV: chronic, stable. Resume home antiretrovirals. Seizure disorder: chronic, stable. Resume home antiepileptics Keppra and Vimpat. No seizure activity. Eczema: Acute on chronic. Continue Lac-Hydrin. Hydroxyzine as needed for itching. Stable. - Time Spent with Patient Total time spent providing and/or coordinating discharge services: Greater than 30 minutes - Quality: VTE Deep Vein Thrombosis/Pulmonary Embolism Present on Admission: No Exam Vital signs: Vital Signs 01/13/18 16:31 01/13/18 20:00 01/13/18 23:13 Temperature 98.7 F 98.7 F 98.8 F Pulse Rate 65 90 99 H Respiratory Rate 16 18 17 Blood Pressure 107/83 133/97 H 124/95 H Pulse Oximetry 97 92 L 96 01/14/18 04:00 01/14/18 08:00 01/14/18 11:27 Temperature 98.5 F 98.4 F 97.9 F Pulse Rate 73 77 82 Respiratory Rate 17 16 16 Blood Pressure 102/69 107/73 109/69 Pulse Oximetry 94 L 94 L 95 Intake & Output 01/13/18 01/14/18 01/14/18 18:59 06:59 18:59 Other: Date of Last Bowel Movement 01/11/18 Narrative: GENERAL: Young male patient in NAD. SKIN: Warm and dry. No rash. Dry skin. HEENT: Normocephalic. Atraumatic. Pupils equal and round. Mucous membranes pink and moist. CARDIOVASCULAR: Regular rate and rhythm. No murmur appreciated. RESPIRATORY: No accessory muscle use. Clear to auscultation. Breath sounds equal bilaterally. GASTROINTESTINAL: Abdomen soft, non-tender, nondistended. Normoactive bowel sounds x4. PD catheter site covered with dressing, CDI. MUSCULOSKELETAL: BLE amputation and partial LUE amputation. Extremities without clubbing, cyanosis, or edema. NEUROLOGICAL: Awake and alert. No obvious cranial nerve deficits. Normal speech. PSYCHIATRIC: Appropriate mood and affect; insight and judgment normal. Results Procedures completed during hospitalization: 01/11/18 - IR performed peritoneal dialysis catheter manipulation Labs on day of discharge: Labs from last 24 hours 01/13/18 18:40 Peritoneal RBC 0 Periton Nuc Cells 497 H Periton Neutrophils 59 Periton Lymphocytes 11 Peritoneal Monocytes 12 Peritoneal Eosinophils 18 - Impressions ITS Impressions Catheter Wire Manipulation 01/11/18 00:00 CONCLUSION: 1. Peritoneal dialysis catheter manipulation as above. Discharge Plan - Discharge Disposition Patient Disposition: 01 Discharge Home - Discharge Condition Condition: Stable - Discharge Order Discharge Orders: Discharge Order (Routine); Ordered 01/14/18 Ordered By: Linda Pratt - Discharge Details Anticipated Discharge Date: 01/14/18 Discharge Comment: Ok to discharge once peritoneal fluid cultures negative [id number] and when cleared by nephrology. - Physicians Team Primary Care Provider: UNKNOWN, Attending Provider: Leah Matson Other Providers: Gelacio Solis MD ; Shady Agosto MD
[2018-01-14] MEDS: Lactic Acid (Ammonium Lactate) 12% Lotion 225 GM Bottle TOPICAL SCH (13:34)
== END 2018-01-14 15:28 | disposition home or self-care (01) ==
LOC: NEDA 00:50 → NEPC 00:50 → NEPFCDU 08:59
PROVIDERS: ADMIT Hospitalist; ATTEND Hospitalist

== ENCOUNTER 2018-02-12 23:31 | Observation (INO) ==
[2018-02-13 01:43] LABS: Baso # (Auto) 0.3 th/mm3 (0.0-0.2); Baso % (Auto) 2.4 % (0.0-2.0); Eos # (Auto) 0.7 th/mm3 (0.0-0.4); Eos % (Auto) 5.5 % (0.0-4.0); Hematocrit 29.6 % (39.0-51.0); Hemoglobin 10.1 gm/dL (13.0-17.0); Lymph # (Auto) 3.4 th/mm3 (1.0-4.8); Lymph % (Auto) 25.7 % (9.0-44.0); Mean Corpuscular HGB Conc 34.1 % (32.0-36.0); Mean Corpuscular Hemoglobin 28.3 pg (27.0-34.0); Mean Platelet Volume 9.4 fL (7.0-11.0); Mono # (Auto) 1.4 th/mm3 (0.0-0.9); Mono % (Auto) 10.1 % (0.0-8.0); Neut # (Auto) 7.5 th/mm3 (1.8-7.7); Neut % (Auto) 56.3 % (16.0-70.0); Platelet Count 387 th/mm3 (150-450); Red Blood Count 3.56 mil/mm3 (4.50-5.90); Red Cell Distribution Width 15.4 % (11.6-17.2); White Blood Count 13.4 th/mm3 (4.0-11.0)
[2018-02-13 02:13] LABS: Albumin 3.3 g/dL (3.4-5.0); Calcium 7.3 mg/dL (8.5-10.1); Carbon Dioxide 23.2 meq/L (21.0-32.0); Potassium 3.2 meq/L (3.5-5.1); Total Protein 7.6 g/dL (6.4-8.2)
[2018-02-13 02:22] LABS: Eosinophils 3 % (0-4); Lymphocytes 22 % (9-44); Monocytes 6 % (0-8); Tallied Nucleated RBC 21 (0-0)
[2018-02-13 02:24] LABS: Ovalocytes 1+; Target Cells 1+
[2018-02-13 02:25] LABS: Howell-Jolly Bodies Present; Platelet Estimate Normal (Normal)
[2018-02-13] MEDS ORDERED: Acetaminophen 325 MG Tablet PO PRN (06:30)
[2018-02-13] MEDS ORDERED: Bisacodyl 10 MG Supp RECTAL PRN (06:30)
--- NOTE | 2018-02-13 07:10 | ED ---
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 He was unable to complete dialysis 2 nights ago and unable to complete dialysis last night. He has been having difficulty with his catheter over the past several weeks. He has seen Dr. Solis regarding this. Related Data Home Medications Medication Instructions Recorded Confirmed abacavir 300 mg PO Q12H 10/07/17 02/13/18 famotidine 20 mg PO DAILY 10/07/17 02/13/18 lamivudine 150 mg PO DAILY 10/07/17 02/13/18 levetiracetam [Keppra] 750 mg PO Q12H 10/07/17 02/13/18 ondansetron HCl [Zofran] 4 mg PO TID PRN 10/07/17 02/13/18 ritonavir 100 mg PO BID 10/07/17 02/13/18 Previous Rx's Medication Instructions Recorded lacosamide [Vimpat] 50 mg PO BID #60 tab 10/12/17 ammonium lactate [AmLactin] 1 applicatio TOPICAL BID #1 tube 01/14/18 hydroxyzine HCl 25 mg PO Q8H PRN #21 tab 01/14/18 doxycycline hyclate 100 mg PO BID 10 Days #20 cap 02/09/18 Allergies Allergy/AdvReac Type Severity Reaction Status Date / Time amoxicillin Allergy Severe rash all Verified 02/12/18 23:37 over clindamycin Allergy Severe Desquamating Verified 02/12/18 23:37 rash penicillin G Allergy Severe Anaphylaxis Verified 02/12/18 23:37 vancomycin Allergy Severe Desqumating Verified 02/12/18 23:37 rash Review of Systems ROS: all other systems reviewed are negative [facility] Medical History Medical History Lymphoma in remission (Acute) Seizures (Acute) Peritoneal dialysis catheter in place (Acute) HIV (human immunodeficiency virus infection) (Acute) Kidney failure (Acute) Peritoneal dialysis catheter dysfunction (Acute) Peritoneal dialysis catheter fitting or adjustment (Acute) Peritoneal dialysis catheter in place (Acute) Surgical History Surgical History 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 (Acute) S/P BKA (below knee amputation) bilateral (Acute) Family History Family History Mother HIV (human immunodeficiency virus infection) Social History Social History Substance History: Active Abuse Second Hand Smoke Exposure: No Smoking Status: Never smoker Tobacco Type: Cigarettes How Often Do You Have a Drink Containing Alcohol: 2 to 4 times a month Recent Travel in [facility] within the Last 8 Weeks: No Recent Out of Country Travel within the Last 8 Weeks: No Immunization History Tetanus Immunization: <5 Years Exam Narrative Exam Narrative: GENERAL:Chronically ill appearing SKIN: Focused skin assessment warm and dry. HEAD: Atraumatic. Normocephalic. EYES: Pupils equal and round. No injection or drainage. ENT: Moist mucous membranes NECK: Trachea midline. CARDIOVASCULAR: Regular rate and rhythm. No murmur appreciated. RESPIRATORY: Clear to auscultation. Breath sounds equal bilaterally. GASTROINTESTINAL: Abdomen soft, non-tender, nondistended. MUSCULOSKELETAL: No obvious deformities. NEUROLOGICAL: Awake and alert. No obvious cranial nerve deficits. PSYCHIATRIC: Appropriate mood and affect; insight and judgment normal. Course Initial Documented Vital Signs Temperature 98.6 F 02/12/18 23:37 Pulse Rate 91 H 02/12/18 23:37 Respiratory Rate 16 02/12/18 23:37 Blood Pressure 125/86 02/12/18 23:37 Pulse Oximetry 94 L 02/12/18 23:37 Last Documented Vital Signs Temperature 98.6 F 02/12/18 23:37 Pulse Rate 91 H 02/12/18 23:37 Respiratory Rate 16 02/12/18 23:37 Blood Pressure 125/86 02/12/18 23:37 Pulse Oximetry 94 L 02/12/18 23:37 Medical Decision Making MDM Narrative Medical decision making narrative: This is a 27-year-old male who presents to the emergency department with a malfunctioning peritoneal dialysis catheter. Labs are significant for hypocalcemia and hyperphosphatemia. Discussed with Dr. Solis. Pt. will be placed in observation for interventional radiology consultation for CT cathetogram. Medical Screen Exam Complete: Yes Emergency Medical Condition: Yes Lab Data Result diagrams: 02/13/18 01:10 02/13/18 01:10 Lab Results 02/13/18 02/13/18 02/13/18 Range/Units 01:10 01:10 01:10 WBC 13.4 H (4.0-11.0) th/mm3 RBC 3.56 L (4.50-5.90) mil/mm3 Hgb 10.1 L (13.0-17.0) gm/dL Hct 29.6 L (39.0-51.0) % MCV 83.0 (80.0-100.0) fL MCH 28.3 (27.0-34.0) pg MCHC 34.1 (32.0-36.0) % RDW 15.4 (11.6-17.2) % Plt Count 387 (150-450) th/mm3 MPV 9.4 (7.0-11.0) fL Prelim Diff (Auto) Slide review pending Neut % (Auto) 56.3 (16.0-70.0) % Lymph % (Auto) 25.7 (9.0-44.0) % [place] % (Auto) 10.1 H (0.0-8.0) % Eos % (Auto) 5.5 H (0.0-4.0) % Baso % (Auto) 2.4 H (0.0-2.0) % Neut # (Auto) 7.5 (1.8-7.7) th/mm3 Lymph # (Auto) 3.4 (1.0-4.8) th/mm3 [place] # (Auto) 1.4 H (0.0-0.9) th/mm3 Eos # (Auto) 0.7 H (0.0-0.4) th/mm3 Baso # (Auto) 0.3 H (0.0-0.2) th/mm3 WBC Differential Manual diff final Seg Neuts % (Manual) 68 (16-70) % Lymphocytes % (Manual) 22 (9-44) % Monocytes % (Manual) 6 (0-8) % Eosinophils % (Manual) 3 (0-4) % Basophils % (Manual) 1 (0-2) % Abs Neuts (Manual) 9.1 H (1.8-7.7) th/mm3 Nucleated RBCs/100 WBC 21 H (0-0) /100 WBC Differential Comment . Platelet Estimate Normal (Normal) Platelet Morphology Enlarged H (Normal) Target Cells 1+ H (None) Ovalocytes 1+ H (None) [employer] Bodies Present H (None) Sodium 141 (136-145) meq/L Potassium 3.2 L (3.5-5.1) meq/L Chloride 104 (98-107) meq/L Carbon Dioxide 23.2 (21.0-32.0) meq/L Anion Gap 14 (5-15) meq/L BUN 109 H (7-18) mg/dL Creatinine 9.46 H (0.60-1.30) mg/dL Estimated GFR 8 L (>89) mL/min Random Glucose 103 (74-106) mg/dL Calcium 7.3 L* (8.5-10.1) mg/dL Prot Corrected Calcium 7.1 L* (8.5-10.1) mg/dL Phosphorus 8.0 H (2.5-4.9) mg/dL Total Bilirubin 0.2 (0.2-1.0) mg/dL AST 21 (15-37) U/L ALT 24 (12-78) U/L Alkaline Phosphatase 64 (45-117) U/L Total Protein 7.6 D (6.4-8.2) g/dL Albumin 3.3 L (3.4-5.0) g/dL Discharge Plan Discharge Disposition Patient Disposition: 30 Still Patient Discharge Condition Condition: Stable Discharge Details Diagnosis: Peritoneal dialysis catheter dysfunction Physicians Team ED Provider: Kerry Davis Primary Care Provider: UNKNOWN, Attending Provider: Marcial Ríos Other Providers: Gelacio Solis Status ED Status: Admitted Observation Patient
[2018-02-13] MEDS: levETIRAcetam 250 MG Tablet PO SCH ×2 (08:52→20:40)
[2018-02-13] MEDS: Senna/Docusate Sodium 8.6/50 MG Tablet PO SCH ×2 (08:52→21:41)
[2018-02-13] MEDS: Lactic Acid (Ammonium Lactate) 12% Lotion 225 GM Bottle TOPICAL SCH ×2 (08:52→21:41)
[2018-02-13] MEDS: Famotidine 20 MG Tablet PO SCH ×2 (08:52→20:39)
[2018-02-13] MEDS: Lacosamide 50 MG Tablet PO SCH ×2 (08:52→20:40)
--- NOTE | 2018-02-13 08:58 | P.HPIM ---
History of Present Illness Primary Care Physician: Patient is a pleasant 27-year-old male with pertinent past medical history of end-stage renal disease currently on peritoneal dialysis presenting to the emergency department for clogged peritoneal dialysis catheter. Patient reports catheter was working and last dialysis session was evening at which point patient noticed that he was having difficulty manipulating his tube and it was no longer functioning. Patient reports this is happened in the past for which she has been evaluated by interventional radiology with resultant improvement in peritoneal dialysis function. On review of systems patient denied fever, chills, abdominal distention or pain, nausea, vomiting, or other acute complaints. Allergy: Penicillin Social history: Occasional marijuana use. Denies tobacco use. Patient lives with grandmother Surgical history: Below the knee amputation bilaterally, left upper extremity amputation. Splenectomy Past medical history: End-stage renal disease on dialysis, HIV, lymphoma, seizures Family history: Grandmother: Diabetes mellitus. Patient denied known family history of hypertension, hyperlipidemia, or cardiovascular disease. Mother - HIV Medications: See medical orders Emergency contact: Grandmother Sarah [phone]. 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 (Acute) S/P BKA (below knee amputation) bilateral (Acute) Family History Family History Mother HIV (human immunodeficiency virus infection) Social History Social History Substance History: Active Abuse Second Hand Smoke Exposure: No Smoking Status: Never smoker Tobacco Type: Cigarettes How Often Do You Have a Drink Containing Alcohol: Never Recent Travel in [place] within the Last 8 Weeks: No Recent Out of Country Travel within the Last 8 Weeks: No Immunization History Tetanus Immunization: <5 Years Medications and Allergies Allergies Allergy/AdvReac Type Severity Reaction Status Date / Time amoxicillin Allergy Severe rash all Verified 02/12/18 23:37 over clindamycin Allergy Severe Desquamating Verified 02/12/18 23:37 rash penicillin G Allergy Severe Anaphylaxis Verified 02/12/18 23:37 vancomycin Allergy Severe Desqumating Verified 02/12/18 23:37 rash Home Medications Medication Instructions Recorded Confirmed Type abacavir 300 mg PO Q12H 10/07/17 02/13/18 History famotidine 20 mg PO DAILY 10/07/17 02/13/18 History lamivudine 150 mg PO DAILY 10/07/17 02/13/18 History levetiracetam [Keppra] 750 mg PO Q12H 10/07/17 02/13/18 History ondansetron HCl [Zofran] 4 mg PO TID PRN 10/07/17 02/13/18 History ritonavir 100 mg PO BID 10/07/17 02/13/18 History Active Medications: Active Medications Abacavir Sulfate (Ziagen) 300 mg PO Q12H [facility] Last Admin: 02/13/18 08:52 Dose: 300 mg Acetaminophen (Tylenol) 650 mg PO Q4H PRN PRN Reason: Temp > 100.4 Al Hydroxide/Mg Hydroxide (Milk Of Magnesia Liq) 30 ml PO Q12H PRN PRN Reason: Mild Constipation Bisacodyl (Dulcolax Supp) 10 mg RECTAL DAILY PRN PRN Reason: SEVERE CONSITIPATION Doxycycline Hyclate (Vibramycin) 100 mg PO BID [facility] Last Admin: 02/13/18 08:52 Dose: 100 mg Famotidine (Pepcid) 10 mg PO Q12HR [facility] Last Admin: 02/13/18 08:52 Dose: 10 mg Hydroxyzine HCl (Atarax) 25 mg PO Q8H PRN PRN Reason: Itching Lacosamide (Vimpat) 50 mg PO BID [facility] Last Admin: 02/13/18 08:52 Dose: 50 mg Lactic Acid (Lac-Hydrin 12% Lotion) 1 applicatio TOPICAL BID [facility] Last Admin: 02/13/18 08:52 Dose: Not Given Lactulose (Lactulose Liq) 30 ml PO DAILY PRN PRN Reason: SEVERE CONSITIPATION Lamivudine (Epivir) 150 mg PO DAILY [facility] Last Admin: 02/13/18 08:51 Dose: 150 mg Levetiracetam (Keppra) 750 mg PO Q12H [facility] Last Admin: 02/13/18 08:52 Dose: 750 mg Ondansetron HCl (Zofran Inj) 4 mg IV.PUSH Q6H PRN PRN Reason: NAUSEA OR VOMITING Ritonavir (Norvir) 100 mg PO BID [facility] Last Admin: 02/13/18 08:52 Dose: 100 mg Senna/Docusate Sodium (Janeen-Colace) 1 tab PO BID [facility] Last Admin: 02/13/18 08:52 Dose: Not Given Sennosides (Senokot) 17.2 mg PO Q12H PRN PRN Reason: Moderate Constipation Physical Exam Vital signs: Last Vital Signs Temp 98.1 F 02/13/18 08:00 Pulse 71 02/13/18 08:00 Resp 14 02/13/18 08:00 BP 111/81 02/13/18 08:00 Pulse Ox 97 02/13/18 08:00 Intake & Output 02/11/18 02/12/18 02/13/18 02/14/18 06:59 06:59 06:59 06:59 Weight 47.627 kg General: No acute distress conversational HEENT: EOMI Cardiovascular: S1/S2. No murmurs rubs or gallops appreciated Respiratory: Clear to auscultation anteriorly and posteriorly no intercostal muscle use no wheezing or splinting noted Gastroenterology: Peritoneal dialysis port without noted erythema or fluctuance in the area. Positive bowel sounds, no guarding, no rebound, positive bowel sounds. Extremity: Bilateral below the knee amputations. Results Labs CBC & Chem 7: 02/13/18 01:10 02/13/18 01:10 Caprini VTE Risk Assessment Caprini VTE Risk Assessment: No/Low Risk (score <= 1) Caprini Risk Assessment Model: Point Value = 1 Point Value = 2 Point Value = 3 Point Value = 5 Age 41-60 Minor surgery BMI > 25 kg/m2 Swollen legs Varicose veins or History of unexplained or recurrent spontaneous Oral contraceptives or hormone replacement Sepsis (< 1 month) Serious lung disease, including pneumonia (< 1 month) Abnormal pulmonary function Acute myocardial infarction Congestive heart failure (< 1 month) History of inflammatory bowel disease Medical patient at bed rest Age 61-74 Arthroscopic surgery Major open surgery (> 45 min) Laparoscopic surgery (> 45 min) Malignancy Confined to bed (> 72 hours) Immobilizing plaster cast Central venous access Age >= 75 History of VTE Family history of VTE Factor V Leiden Prothrombin [id number] Lupus anticoagulant Anticardiolipin antibodies Elevated serum homocysteine Heparin-induced thrombocytopenia Other congenital or acquired thrombophilia Stroke (< 1 month) Elective arthroplasty Hip, pelvis, or leg fracture Acute spinal cord injury (< 1 month) Prophylaxis Regimen: Total Risk Factor Score Risk Level Prophylaxis Regimen 0-1 Low Early ambulation 2 Moderate Order ONE of the following: *Sequential Compression Device (SCD) *Heparin 5000 units SQ BID 3-4 Higher Order ONE of the following medications: *Heparin 5000 units SQ TID *Enoxaparin/Lovenox 40 mg SQ daily (WT < 150 kg, CrCl > 30 mL/min) *Enoxaparin/Lovenox 30 mg SQ daily (WT < 150 kg, CrCl > 10-29 mL/min) *Enoxaparin/Lovenox 30 mg SQ BID (WT < 150 kg, CrCl > 30 mL/min) AND/OR *Sequential Compression Device (SCD) 5 or more Highest Order ONE of the following medications: *Heparin 5000 units SQ TID (Preferred with Epidurals) *Enoxaparin/Lovenox 40 mg SQ daily (WT < 150 kg, CrCl > 30 mL/min) *Enoxaparin/Lovenox 30 mg SQ daily (WT < 150 kg, CrCl > 10-29 mL/min) *Enoxaparin/Lovenox 30 mg SQ BID (WT < 150 kg, CrCl > 30 mL/min) AND *Sequential Compression Device (SCD) Assessment and Plan Plan Nephrology: End-stage renal disease Patient with peritoneal dialysis catheter obstruction. Less dialysis session . No signs of active infection with abdominal ascites, tenderness or rebound on physical examination, fever or chills. Lower suspicion at this time for systemic bacterial peritonitis at this time. Case briefly discussed with on -call interventional radiology and will wait for nephrology recommendations to discuss possible vascular cath placement moving forward. Nephrology consulted and recommendations pending Continue to check basic metabolic panel daily. Hemoglobin stable and at goal for patients with known end-stage renal disease at this time no indication for erythropoietin stimulating agents such as Procrit. Patient currently n.p.o. but will switch back to oral diet if no planned procedures Infectious disease: HIV Continue home regimen of abacavir 300 mg every 12 hours, ritonavir 100 mg p.o. twice a day Neurology: Seizure disorder Continue Keppra 750 mg p.o. every 12 hours Continue lacosamide 50 mg p.o. twice daily CODE STATUS: Full code DVT prophylaxis: Heparin subcu Diet: N.p.o. except medication Disposition: Medical service Emergency contact if needed: Sarah [phone] (grandmother) Plan discussed with patient in detail all questions answered at the bedside. Awaiting nephrology consultation
--- NOTE | 2018-02-13 10:09 | P.CONNP ---
<RubyreganLou fontenot - Last Filed: 02/13/18 09:58> History of Present Illness Service: Nephrology Consult date: 02/13/18 Requesting Physician: Summer Carrington Reason for Consult: End stage renal disease on Peritoneal dialysis Primary Care Provider: UNKNOWN History of Present Illness: Patient is a 27-year-old -[place] male with history of HIV, ESRD on PD, history of childhood lymphoma, and seizure disorder. Presenting to the emergency room with non functioning PD catheter. Nephrology is consulted for end stage renal disease on peritoneal disease. The patient that he only missed 1 night of PD. He has also had recent admission for clogged catheter in December. He denies any fever, chills, nausea, vomiting, diarrhea, chest pain, cough, shortness of breath, or decreased appetite. 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 (Acute) S/P BKA (below knee amputation) bilateral (Acute) - Family History Family History: Family History (Last Reviewed 02/13/18 @ 09:02 by Ezio Lopez MD) Mother HIV (human immunodeficiency virus infection) - Tobacco History Second Hand Smoke Exposure: No Smoking Status: Never smoker Tobacco Type: Cigarettes - Alcohol History How Often Do You Have a Drink Containing Alcohol: Never - Substance Use History Substance History: Active Abuse - Substance Use Type Marijuana Status: Active - Travel History Recent Travel in the [place] Within the Last 8 Weeks: No Recent Travel Out of the Country Within the Last 8 Weeks: No - Immunization History Tetanus Immunization: <5 Years Medications and Allergies Allergies Allergy/AdvReac Type Severity Reaction Status Date / Time amoxicillin Allergy Severe rash all Verified 02/12/18 23:37 over clindamycin Allergy Severe Desquamating Verified 02/12/18 23:37 rash penicillin G Allergy Severe Anaphylaxis Verified 02/12/18 23:37 vancomycin Allergy Severe Desqumating Verified 02/12/18 23:37 rash Home Medications Medication Instructions Recorded Confirmed Type abacavir 300 mg PO Q12H 10/07/17 02/13/18 History famotidine 20 mg PO DAILY 10/07/17 02/13/18 History lamivudine 150 mg PO DAILY 10/07/17 02/13/18 History levetiracetam [Keppra] 750 mg PO Q12H 10/07/17 02/13/18 History ondansetron HCl [Zofran] 4 mg PO TID PRN 10/07/17 02/13/18 History ritonavir 100 mg PO BID 10/07/17 02/13/18 History Active Medications: Active Medications Abacavir Sulfate (Ziagen) 300 mg PO Q12H [facility] Last Admin: 02/13/18 08:52 Dose: 300 mg Acetaminophen (Tylenol) 650 mg PO Q4H PRN PRN Reason: Temp > 100.4 Al Hydroxide/Mg Hydroxide (Milk Of Magnesia Liq) 30 ml PO Q12H PRN PRN Reason: Mild Constipation Bisacodyl (Dulcolax Supp) 10 mg RECTAL DAILY PRN PRN Reason: SEVERE CONSITIPATION Doxycycline Hyclate (Vibramycin) 100 mg PO BID [facility] Last Admin: 02/13/18 08:52 Dose: 100 mg Famotidine (Pepcid) 10 mg PO Q12HR [facility] Last Admin: 02/13/18 08:52 Dose: 10 mg Heparin Sodium (Porcine) (Heparin Inj) 5,000 units SQ Q12HR [facility] Hydroxyzine HCl (Atarax) 25 mg PO Q8H PRN PRN Reason: Itching Lacosamide (Vimpat) 50 mg PO BID [facility] Last Admin: 02/13/18 08:52 Dose: 50 mg Lactic Acid (Lac-Hydrin 12% Lotion) 1 applicatio TOPICAL BID [facility] Last Admin: 02/13/18 08:52 Dose: Not Given Lactulose (Lactulose Liq) 30 ml PO DAILY PRN PRN Reason: SEVERE CONSITIPATION Lamivudine (Epivir) 150 mg PO DAILY [facility] Last Admin: 02/13/18 08:51 Dose: 150 mg Levetiracetam (Keppra) 750 mg PO Q12H [facility] Last Admin: 02/13/18 08:52 Dose: 750 mg Ondansetron HCl (Zofran Inj) 4 mg IV.PUSH Q6H PRN PRN Reason: NAUSEA OR VOMITING Ritonavir (Norvir) 100 mg PO BID [facility] Last Admin: 02/13/18 08:52 Dose: 100 mg Senna/Docusate Sodium (Janeen-Colace) 1 tab PO BID [facility] Last Admin: 02/13/18 08:52 Dose: Not Given Sennosides (Senokot) 17.2 mg PO Q12H PRN PRN Reason: Moderate Constipation Exam Vital signs: Vital Signs 02/12/18 23:37 02/13/18 07:34 02/13/18 08:00 Temperature 98.6 F 98.1 F Pulse Rate 91 H 70 71 Respiratory Rate 16 13 14 Blood Pressure 125/86 119/59 L 111/81 Pulse Oximetry 94 L 96 97 Intake & Output 02/12/18 02/13/18 02/13/18 18:59 06:59 18:59 Weight 47.627 kg 47.627 kg Other: Weight On Admission 47.627 kg Narrative: GENERAL: Alert and oriented SKIN: Warm and dry. NECK: Supple, trachea midline. No JVD. CARDIOVASCULAR: Regular rate and rhythm without murmurs, gallops, or rubs. RESPIRATORY: Breath sounds equal bilaterally. No accessory muscle use. GASTROINTESTINAL: Abdomen soft, flat, tender on palpation. PD catheter dressing intact. MUSCULOSKELETAL: No cyanosis, or edema. Bilateral Below knee amputation. Partial LUE amputation. BACK: Nontender without obvious deformity. No CVA tenderness. Results - Lab Results 02/13/18 01:10 02/13/18 01:10 Most recent lab results Calcium 7.3 mg/dL (8.5-10.1) L* 02/13/18 01:10 Phosphorus 8.0 mg/dL (2.5-4.9) H 02/13/18 01:10 Assessment and Plan - Assessment (1) End-stage renal disease on peritoneal dialysis Code(s): N18.6 - End stage renal disease; Z99.2 - Dependence on renal dialysis Status: Acute Plan: End stage renal disease on Peritoneal dialysis Nightly Hypocalcemia, calcitriol ordered daily. Hyperphosphatemia, PhosLo added Will have dialysis assess PD catheter and attempt to run one exchange during the day. May need to consult interventional if unsuccessful exchange. <Gelacio Solis - Last Filed: 02/15/18 21:03> History of Present Illness Primary Care Provider: UNKNOWN [facility] - Medical History Medical History: Medical History (Last Updated 02/13/18 @ 09:06 by Ezio Lopez MD) Lymphoma in remission (Acute) Seizures (Acute) Peritoneal dialysis catheter in place (Acute) HIV (human immunodeficiency virus infection) (Acute) Kidney failure (Acute) Peritoneal dialysis catheter dysfunction Peritoneal dialysis catheter fitting or adjustment Peritoneal dialysis catheter in place - Surgical History Surgical History: Surgical History (Last Reviewed 02/13/18 @ 09:02 by Ezio Lopez MD) 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 (Acute) S/P BKA (below knee amputation) bilateral (Acute) - Family History Family History: Family History (Last Reviewed 02/13/18 @ 09:02 by Ezio Lopez MD) Mother HIV (human immunodeficiency virus infection) Medications and Allergies Active Medications: Active Medications Abacavir Sulfate (Ziagen) 300 mg PO Q12H [facility] Last Admin: 02/14/18 12:19 Dose: 300 mg Acetaminophen (Tylenol) 650 mg PO Q4H PRN PRN Reason: Temp > 100.4 Al Hydroxide/Mg Hydroxide (Milk Of David Liq) 30 ml PO Q12H PRN PRN Reason: Mild Constipation Bisacodyl (Dulcolax Supp) 10 mg RECTAL DAILY PRN PRN Reason: SEVERE CONSITIPATION Calcitriol (Rocaltrol) 0.25 mcg PO DAILY [facility] Last Admin: 02/14/18 12:19 Dose: 0.25 mcg Doxycycline Hyclate (Vibratab) 100 mg PO BID [facility] Famotidine (Pepcid) 10 mg PO Q12HR [facility] Last Admin: 02/14/18 12:19 Dose: 10 mg Heparin Sodium (Porcine) (Heparin Inj) 5,000 units SQ Q12HR [facility] Last Admin: 02/14/18 12:20 Dose: Not Given Heparin Sodium (Porcine) (Heparin Inj) 1,000 units OTHER WITH DIALYSIS PRN PRN Reason: SEE LABEL COMMENTS Hydroxyzine HCl (Atarax) 25 mg PO Q8H PRN PRN Reason: Itching Lacosamide (Vimpat) 50 mg PO BID [facility] Last Admin: 02/14/18 12:20 Dose: 50 mg Lactic Acid (Lac-Hydrin 12% Lotion) 1 applicatio TOPICAL BID [facility] Last Admin: 02/14/18 12:21 Dose: Not Given Lactulose (Lactulose Liq) 30 ml PO DAILY PRN PRN Reason: SEVERE CONSITIPATION Lamivudine (Epivir) 150 mg PO DAILY [facility] Last Admin: 02/14/18 12:20 Dose: 150 mg Levetiracetam (Keppra) 750 mg PO Q12H [facility] Last Admin: 02/14/18 12:20 Dose: 750 mg Ondansetron HCl (Zofran Inj) 4 mg IV.PUSH Q6H PRN PRN Reason: NAUSEA OR VOMITING Ritonavir (Norvir) 100 mg PO BID [facility] Last Admin: 02/14/18 12:19 Dose: 100 mg Senna/Docusate Sodium (Janeen-Colace) 1 tab PO BID [facility] Last Admin: 02/14/18 12:20 Dose: Not Given Sennosides (Senokot) 17.2 mg PO Q12H PRN PRN Reason: Moderate Constipation Sodium Chloride (Ns Flush) 10 ml IV.FLUSH UNSCH PRN PRN Reason: SEE LABEL COMMENTS Last Admin: 02/13/18 20:41 Dose: 10 ml Results - Lab Results 02/14/18 07:10 02/14/18 07:10 Most recent lab results Calcium 7.8 mg/dL (8.5-10.1) L 02/14/18 07:10 Phosphorus 6.7 mg/dL (2.5-4.9) H D 02/14/18 07:10 Assessment and Plan - Assessment (1) End-stage renal disease on peritoneal dialysis Code(s): N18.6 - End stage renal disease; Z99.2 - Dependence on renal dialysis Status: Acute Plan: Patient seen and examined, agree with above. I ask HD RN to try PD fluid with Heparin and do fluid exchange. If does not work, will Consult IR for catheterogram.
[2018-02-13] MEDS ORDERED: Heparin 10,000 UNITS/10 ML Vial (for IV use) OTHER PRN (10:11)
[2018-02-13] MEDS: Heparin - SQ 10,000 UNITS/ML Vial SQ SCH (20:41)
[2018-02-14 08:30] LABS: Baso # (Auto) 0.1 th/mm3 (0.0-0.2); Baso % (Auto) 0.6 % (0.0-2.0); Eos # (Auto) 0.7 th/mm3 (0.0-0.4); Hematocrit 36.5 % (39.0-51.0); Hemoglobin 11.4 gm/dL (13.0-17.0); Lymph # (Auto) 2.9 th/mm3 (1.0-4.8); Lymph % (Auto) 26.3 % (9.0-44.0); Mean Corpuscular HGB Conc 31.2 % (32.0-36.0); Mean Corpuscular Volume 86.7 fL (80.0-100.0); Mean Platelet Volume 9.2 fL (7.0-11.0); Mono # (Auto) 1.1 th/mm3 (0.0-0.9); Mono % (Auto) 10.3 % (0.0-8.0); Neut # (Auto) 6.2 th/mm3 (1.8-7.7); Neut % (Auto) 56.8 % (16.0-70.0); Platelet Count 415 th/mm3 (150-450); Red Blood Count 4.22 mil/mm3 (4.50-5.90); Red Cell Distribution Width 16.2 % (11.6-17.2); White Blood Count 10.9 th/mm3 (4.0-11.0)
[2018-02-14 08:33] VITALS: O2SAT 97
[2018-02-14] MEDS ORDERED: Calcitriol 0.25 MCG Capsule PO SCH (09:00)
[2018-02-14 09:07] LABS: Alanine Aminotransferase 22 U/L (12-78); Albumin 3.7 g/dL (3.4-5.0); Alkaline Phosphatase 70 U/L (45-117); Anion Gap 17 meq/L (5-15); Aspartate Aminotransferase 24 U/L (15-37); Blood Urea Nitrogen 102 mg/dL (7-18); Calcium 7.8 mg/dL (8.5-10.1); Carbon Dioxide 17.4 meq/L (21.0-32.0); Chloride 104 meq/L (98-107); Glomerular Filtration Rate 9 mL/min (>89); Glucose,Random 77 mg/dL (74-106); Phosphorus 6.7 mg/dL (2.5-4.9); Potassium 3.2 meq/L (3.5-5.1); Sodium 138 meq/L (136-145); Total Protein 8.6 g/dL (6.4-8.2)
[2018-02-14 09:23] LABS: Eosinophils 4 % (0-4); Lymphocytes 28 % (9-44); Monocytes 7 % (0-8); Platelet Estimate Normal (Normal); Platelet Morphology Normal (Normal); Tallied Nucleated RBC 31 (0-0)
[2018-02-14 09:24] LABS: Howell-Jolly Bodies Present; Pappenheimer Bodies Present; Target Cells 1+
[2018-02-14 09:25] LABS: Polychromasia 2.3 % (0.0-1.9)
[2018-02-14] MEDS ORDERED: fentaNYL Citrate Inj 100 MCG/2 ML Ampul ONE (10:33)
[2018-02-14] MEDS ORDERED: Iohexol 350 MG/ML 50 ML Vial (for Rad Diag) IVCONTRAST ONE (11:00)
[2018-02-14] MEDS ORDERED: Cathflo Activase Inj 2 MG Vial ONE (11:11)
--- NOTE | 2018-02-14 11:51 | IR ---
EXAM DATE: 02/14/2018 11:41 AM EST AGE/SEX: 27 years / Male INDICATIONS: Patient presents with history of ESRD on PD and a dislodge PD catheter in need of a PD catheter reposition. CLINICAL DATA: This is the patient's initial encounter. Patient reports that signs and symptoms have been present for 1 day and indicates a pain score of 0/10. MEDICAL/SURGICAL HISTORY: . Lymphoma in remission, Seizures, Peritoneal Dialysis catheter, HIV, Kidney failure, PD catheter dysfunction, PD catheter fitting or adjustment, PD catheter in place. . Below knee amputation status of left upper extremity, S/P BKA bilateral. [place]: [facility] [place]. . FLUORO TIME (min): 2.5 IMAGE SERIES: 3 ACCESS SITE: Right Peritoneal Dialysis catheter SEDATION TIME (min): 0 CONTRAST (cc): 40 Omnipaque (iohexol) 350 MEDICATION(S): 50 mcg fentanyl (Sublimaze) IV 1 mg lorazepam (Ativan) IV DEVICE(S): . . PROCEDURE: Fluoroscopically guided peritoneal dialysis catheter evaluation and manipulation. The risks, benefits and alternatives to the procedure were explained and verbal and written consent w as obtained. The site was prepped in sterile fashion. Full sterile technique was used, including ca p, mask, sterile gloves and gown and a large sterile sheet. Hand hygiene and 2% chlorhexidine prep w as utilized per protocol for cutaneous antisepsis with appropriate dry time for site. The skin and s ubcutaneous tissues were infiltrated with local anesthetic solution. The patient's peritoneal dialysis catheter was initially evaluated with contrast injection revealing the tip to be looped in the right mid abdomen and encased in fibrin. A stiff hydrophilic guidewire wa s manipulated through the catheter and out into the peritoneal cavity. The wire was used to move the catheter out of its current position into a higher and more lateral position in the right abdomen. Th e catheter was then flushed and locked with concentrated TPA solution (6 mg). CONCLUSION: 1. The patient's peritoneal dialysis catheter tip was encased in fibrin sheath. 2. The catheter was relocated under direct fluoroscopic guidance and then blocked with concentrated TPA solution to assist with resolution of catheter adherent fibrin 3. The TPA should be allowed to dwell for at least 4 hours, however peritoneal dialysis can be attem pted tonight if indicated Electronically signed by: Torito Barajas MD 02/14/2018 11:49 AM EST
[2018-02-14] MEDS: Famotidine 20 MG Tablet PO SCH (12:19)
[2018-02-14] MEDS: Heparin - SQ 10,000 UNITS/ML Vial SQ SCH (12:20)
[2018-02-14] MEDS: Senna/Docusate Sodium 8.6/50 MG Tablet PO SCH (12:20)
[2018-02-14] MEDS: levETIRAcetam 250 MG Tablet PO SCH (12:20)
[2018-02-14] MEDS: Lacosamide 50 MG Tablet PO SCH (12:20)
[2018-02-14] MEDS: Lactic Acid (Ammonium Lactate) 12% Lotion 225 GM Bottle TOPICAL SCH (12:21)
--- NOTE | 2018-02-14 12:24 | P.PNIM ---
Subjective Interval history: Patient seen and examined PD tube changed and functional again no complaints by patient of fever, chills, abdominal pain Evaluated by nephrology and cleared for discharge Physical Exam Vital signs: Last Vital Signs Temp 98.5 F 02/14/18 08:00 Pulse 74 02/14/18 08:00 Resp 14 02/14/18 08:00 BP 97/64 L 02/14/18 08:00 Pulse Ox 97 02/14/18 08:00 Intake & Output 02/12/18 02/13/18 02/14/18 02/15/18 06:59 06:59 06:59 06:59 Intake Total 180 / 180 Output Total 800 / 800 Balance -620 / -620 Weight 47.627 kg 47.627 kg Narrative: GENERAL: Alert and oriented SKIN: Warm and dry. CARDIOVASCULAR: Regular rate and rhythm without murmurs, gallops, or rubs. RESPIRATORY: Breath sounds equal bilaterally. No accessory muscle use. GASTROINTESTINAL: Abdomen soft, flat, tender on palpation. PD catheter dressing intact. MUSCULOSKELETAL: No cyanosis, or edema. Bilateral Below knee amputation. Partial LUE amputation. Results Labs CBC & Chem 7: 02/14/18 07:10 02/14/18 07:10 Imaging Imaging: Impressions Peritoneogram w/Contrast 02/14/18 05:55 CONCLUSION: 1. The patient's peritoneal dialysis catheter tip was encased in fibrin sheath. 2. The catheter was relocated under direct fluoroscopic guidance and then blocked with concentrated TPA solution to assist with resolution of catheter adherent fibrin 3. The TPA should be allowed to dwell for at least 4 hours, however peritoneal dialysis can be attempted tonight if indicated Assessment and Plan (1) End-stage renal disease on peritoneal dialysis: Code(s): N18.6 - End stage renal disease; Z99.2 - Dependence on renal dialysis Status: Acute Plan Nephrology: End-stage renal disease Patient with peritoneal dialysis catheter obstruction. IR fixed issue and now functional. Note reviewed. Nephrology consulted and cleared for discharge home with PD tonight as outpatient. Hemoglobin stable and at goal for patients with known end-stage renal disease at this time no indication for erythropoietin stimulating agents such as Procrit. Infectious disease: HIV Continue home regimen of abacavir 300 mg every 12 hours, ritonavir 100 mg p.o. twice a day Neurology: Seizure disorder Continue Keppra 750 mg p.o. every 12 hours Continue lacosamide 50 mg p.o. twice daily CODE STATUS: Full code Diet: renal Disposition:HOME Emergency contact if needed: Sarah [phone] (grandmother) Patient clear for d/c Discharge Planning: Discharge patient to home Condition on discharge: Improved Ad Janeen activity Rx written: Follow-up with primary care physician Follow up with nephrology outpatient Progress Note: Quality VTE Deep Vein Thrombosis/Pulmonary Embolism Present on Admission: No
--- NOTE | 2018-02-14 12:31 | P.PNNP ---
Subjective Interval history: Denies any shortness of breath, nausea, vomiting, or abdominal tenderness. <Lou Hoffman - Last Filed: 02/14/18 12:25> Physical Exam Vital signs: Vital Signs 02/13/18 12:30 02/13/18 16:00 02/13/18 20:00 Temperature 98.2 F 97.9 F Pulse Rate 73 75 Respiratory Rate 16 16 Blood Pressure 92/66 L 118/85 111/83 Pulse Oximetry 97 95 02/14/18 03:56 02/14/18 08:00 Temperature 98.1 F 98.5 F Pulse Rate 70 74 Respiratory Rate 16 14 Blood Pressure 98/62 L 97/64 L Pulse Oximetry 95 97 Intake & Output 02/13/18 02/14/18 02/14/18 18:59 06:59 18:59 Intake Total 180 / 180 Output Total 800 / 800 Balance -620 / -620 Weight 47.627 kg Intake: Oral 180 / 180 Output: Urine 800 / 800 Other: # Voids 1 Date of Last Bowel Movement 02/13/18 Weight On Admission 47.627 kg Narrative: GENERAL: Alert and oriented SKIN: Warm and dry. CARDIOVASCULAR: Regular rate and rhythm without murmurs, gallops, or rubs. RESPIRATORY: Breath sounds equal bilaterally. No accessory muscle use. GASTROINTESTINAL: Abdomen soft, flat, tender on palpation. PD catheter dressing intact. MUSCULOSKELETAL: No cyanosis, or edema. Bilateral Below knee amputation. Partial LUE amputation. <Lou Hoffman - Last Filed: 02/14/18 12:25> Assessment and Plan - Assessment (1) End-stage renal disease on peritoneal dialysis Code(s): N18.6 - End stage renal disease; Z99.2 - Dependence on renal dialysis Status: Acute Plan: End stage renal disease on Peritoneal dialysis Nightly Had peritoneogram done, catheter tip encased in fibrin sheath. TPA solution given. Cleared per Nephrology for discharge home. PD nightly. <Lou Hoffman - Last Filed: 02/14/18 12:25> - Assessment (1) End-stage renal disease on peritoneal dialysis Code(s): N18.6 - End stage renal disease; Z99.2 - Dependence on renal dialysis Status: Acute Plan: Patient seen and examined, agree with above. Patient has Peritoneogram done and fibrin sheath removed. Now PD catheter is working. For D/C home, he will continue PD at home. Follow up in PD clinic. <Gelacio Solis - Last Filed: 02/16/18 21:27>
[2018-02-14 12:33] VITALS: BP 114/78; PULSE 57; RESP 16; TEMP 97.6
== END 2018-02-14 16:29 | disposition home or self-care (01) ==
LOC: NEDA 23:31 → NEPE 23:31 → NEDA 02-13 08:00 → NEPFCDU 02-13 08:27
PROVIDERS: ADMIT Internal Medicine; ATTEND Internal Medicine

== ENCOUNTER 2018-04-03 01:43 | Observation (INO) ==
--- NOTE | 2018-04-03 02:24 | ED ---
HPI General Chief complaint: Medical Clearance Stated complaint: Medical Time Seen by Provider: 04/03/18 02:04 Source: patient Mode of arrival: ambulatory Limitations: no limitations History of Present Illness HPI narrative: 27 M hx AIDS, ESRD on home peritoneal dialysis c/o inability to due PD at home tonight. Last night pt was able to peritoneal dialyze per normal. [employer] is Dr Solis. Occasional cough is reported which causes chest pain when coughing. Pt does not know CD4 count or viral load. He reports following with infectious disease MD regularly and strict HAART compliance. Related Data Home Medications Medication Instructions Recorded Confirmed abacavir 300 mg PO Q12H 10/07/17 04/03/18 famotidine 20 mg PO DAILY 10/07/17 04/03/18 lamivudine 150 mg PO DAILY 10/07/17 04/03/18 levetiracetam [Keppra] 750 mg PO Q12H 10/07/17 04/03/18 ondansetron HCl [Zofran] 4 mg PO TID PRN 10/07/17 04/03/18 ritonavir 100 mg PO BID 10/07/17 04/03/18 Previous Rx's Medication Instructions Recorded lacosamide [Vimpat] 50 mg PO BID #60 tab 10/12/17 ammonium lactate [AmLactin] 1 applicatio TOPICAL BID #1 tube 01/14/18 hydroxyzine HCl 25 mg PO Q8H PRN #21 tab 01/14/18 Allergies Allergy/AdvReac Type Severity Reaction Status Date / Time amoxicillin Allergy Severe rash all Verified 02/12/18 23:37 over clindamycin Allergy Severe Desquamating Verified 02/12/18 23:37 rash penicillin G Allergy Severe Anaphylaxis Verified 02/12/18 23:37 vancomycin Allergy Severe Desqumating Verified 02/12/18 23:37 rash Review of Systems ROS: all other systems reviewed are negative [facility] Medical History Medical History Lymphoma in remission (Acute) Seizures (Acute) Peritoneal dialysis catheter in place (Acute) HIV (human immunodeficiency virus infection) (Acute) Kidney failure (Acute) Peritoneal dialysis catheter dysfunction (Acute) Peritoneal dialysis catheter fitting or adjustment (Acute) Peritoneal dialysis catheter in place (Acute) Surgical History Surgical History 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 (Acute) S/P BKA (below knee amputation) bilateral (Acute) Social History Social History Substance History: Active Abuse Second Hand Smoke Exposure: No Smoking Status: Never smoker Tobacco Type: Cigarettes How Often Do You Have a Drink Containing Alcohol: Monthly or less Recent Travel in [facility] within the Last 8 Weeks: No Recent Out of Country Travel within the Last 8 Weeks: No Immunization History Tetanus Immunization: <5 Years Tetanus Immunization Year if Known: 2018 Exam Narrative Exam Narrative: GENERAL: 27 yo M, WNWD, NAD SKIN: Focused skin assessment warm/dry. HEAD: Atraumatic. Normocephalic. EYES: Pupils equal and round. No scleral icterus. No injection or drainage. ENT: No nasal bleeding or discharge. Mucous membranes pink and moist. NECK: Trachea midline. No JVD. CARDIOVASCULAR: Regular rate and rhythm. No murmur appreciated. RESPIRATORY: No accessory muscle use. Clear to auscultation. Breath sounds equal bilaterally. GASTROINTESTINAL: Soft. Site of insertion of PD tubing clean and nontender without erythema. Minimal white fluid present in the PD tubing. MUSCULOSKELETAL: No obvious deformities. No clubbing. No cyanosis. No edema. NEUROLOGICAL: Awake and alert. No obvious cranial nerve deficits. Motor grossly within normal limits. Normal speech. PSYCHIATRIC: Appropriate mood and affect; insight and judgment normal. Course Initial Documented Vital Signs Temperature 98.3 F 04/03/18 01:44 Pulse Rate 81 04/03/18 01:44 Respiratory Rate 16 04/03/18 01:44 Blood Pressure 141/92 H 04/03/18 01:44 Pulse Oximetry 98 04/03/18 01:44 Last Documented Vital Signs Temperature 98.3 F 04/03/18 01:44 Pulse Rate 81 04/03/18 01:44 Respiratory Rate 16 04/03/18 01:44 Blood Pressure 141/92 H 04/03/18 01:44 Pulse Oximetry 98 04/03/18 01:44 Medical Decision Making MDM Narrative Medical decision making narrative: K 3.4 BUN 116 Cr 8.8 60cc syringe with negative pressure unsuccessful. Call placed to Dr Muñiz, covering for Dr Solis, who advises admission with IR consult and NPO p MN. d/w Dr Bedoya for [facility]. Medical Screen Exam Complete: Yes Emergency Medical Condition: Yes Lab Data Result diagrams: 04/03/18 02:33 04/03/18 02:33 Lab Results 04/03/18 04/03/18 Range/Units 02:33 02:33 WBC 8.4 (4.0-11.0) th/mm3 RBC 4.49 L (4.50-5.90) mil/mm3 Hgb 11.6 L (13.0-17.0) gm/dL Hct 37.0 L (39.0-51.0) % MCV 82.4 (80.0-100.0) fL MCH 25.8 L (27.0-34.0) pg MCHC 31.3 L (32.0-36.0) % RDW 15.4 (11.6-17.2) % Plt Count 281 (150-450) th/mm3 MPV 10.6 (7.0-11.0) fL Prelim Diff (Auto) Manual diff required WBC Differential Manual diff final Seg Neuts % (Manual) 57 (16-70) % Band Neuts % (Manual) 3 (0-6) % Lymphocytes % (Manual) 21 (9-44) % Monocytes % (Manual) 10 H (0-8) % Eosinophils % (Manual) 9 H (0-4) % Abs Neuts (Manual) 5.0 (1.8-7.7) th/mm3 Differential Comment . Platelet Estimate Normal (Normal) Platelet Morphology Normal (Normal) Pappenheimer Bodies Present H (None) Target Cells 1+ H (None) Ohara-Bardolph Bodies Present H (None) Sodium 141 (136-145) meq/L Potassium 3.4 L (3.5-5.1) meq/L Chloride 108 H (98-107) meq/L Carbon Dioxide 21.8 (21.0-32.0) meq/L Anion Gap 11 (5-15) meq/L BUN 116 H (7-18) mg/dL Creatinine 8.80 H (0.60-1.30) mg/dL Estimated GFR 9 L (>89) mL/min Random Glucose 102 (74-106) mg/dL Calcium 8.5 (8.5-10.1) mg/dL Imaging Data Radiologist's impression: Chest X-Ray 04/03/18 02:16 CONCLUSION: No acute cardiopulmonary disease. There is no evidence of pneumonia. Discharge Plan Discharge Disposition Patient Disposition: ED Admit(ED Internal Use Only) Discharge Order Discharge Orders: ED Use Only Admit Order (Routine); Ordered 04/03/18 Ordered By: Shaquille Cespedes Physicians Team ED Provider: Shaquille Cespedes Primary Care Provider: Primary Care Crystal Calderon Attending Provider: Unique Bedoya Other Providers: Shaquille Muñiz V Status ED Status: Admitted Observation Patient
[2018-04-03 02:54] LABS: Hemoglobin 11.6 gm/dL (13.0-17.0); Mean Corpuscular HGB Conc 31.3 % (32.0-36.0); Mean Corpuscular Hemoglobin 25.8 pg (27.0-34.0); Mean Corpuscular Volume 82.4 fL (80.0-100.0); Mean Platelet Volume 10.6 fL (7.0-11.0); Platelet Count 281 th/mm3 (150-450); Red Blood Count 4.49 mil/mm3 (4.50-5.90); Red Cell Distribution Width 15.4 % (11.6-17.2); White Blood Count 8.4 th/mm3 (4.0-11.0)
--- NOTE | 2018-04-03 03:01 | XR ---
EXAM DATE: 04/03/2018 2:32 AM EST AGE/SEX: 27 years / Male INDICATIONS: Cough. CLINICAL DATA: This is the patient's initial encounter. Patient reports that signs and symptoms have been present for 1 day and indicates a pain score of 0/10. MEDICAL/SURGICAL HISTORY: . HIV. Chronic renal failure. Seizures. Lymphoma in remission, PD cat heter. . Bilateral above the knee amputations. [place] [facility] [place]. . FINDINGS: A single AP view of the chest demonstrates the lungs to be symmetrically aerated without evidence of mass, infiltrate or effusion. The cardiomediastinal contours are unremarkable. Osseous structures a re intact. CONCLUSION: No acute cardiopulmonary disease. There is no evidence of pneumonia. Electronically signed by: Naavrro Parisi MD Board Certified Radiologist 04/03/2018 3:00 AM EST
[2018-04-03 03:25] LABS: Eosinophils 9 % (0-4); Lymphocytes 21 % (9-44); Monocytes 10 % (0-8)
[2018-04-03 03:26] LABS: Howell-Jolly Bodies Present; Pappenheimer Bodies Present; Platelet Estimate Normal (Normal); Platelet Morphology Normal (Normal); Target Cells 1+
[2018-04-03 03:30] LABS: Calcium 8.5 mg/dL (8.5-10.1); Carbon Dioxide 21.8 meq/L (21.0-32.0)
[2018-04-03 03:32] LABS: Potassium 3.4 meq/L (3.5-5.1)
[2018-04-03] MEDS ORDERED: Acetaminophen 325 MG Tablet PO PRN (04:03)
[2018-04-03] MEDS: Heparin - SQ 10,000 UNITS/ML Vial SQ SCH ×4 (05:50→21:30)
--- NOTE | 2018-04-03 11:14 | P.HPIM ---
History of Present Illness Primary Care Physician: No Primary Care Physician Chief Complaint: My catheter does not work, I cannot do dialysis History of Present Illness: 27-year-old male with a history of HIV, end-stage renal disease on home peritoneal dialysis presents to the emergency room due to inability to do his scheduled peritoneal dialysis due to his dysfunctional catheter. He reports his last peritoneal dialysis was on 04/01 evening. 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 Of note, he was seen on March 16 with similar complaints and was seen by interventional radiology in which the repositioning of the peritoneal dialysis catheter was done under fluoroscopic guidance. He denies any associated chills, fevers. The only other complaint he has bilateral lower BKA stump discomfort which is worse when he puts on his prosthesis. He denies recent trauma to the lower BKA stump. Diagnosis (1) Peritoneal dialysis catheter dysfunction: Review of Systems Constitutional: Reports as per HPI, Denies chills, Denies fever(s) and Denies headache(s) Eyes: Denies blurry vision, Denies change in vision and Denies eye pain Ears, Nose, Mouth, and Throat: Denies abnormal hearing, Denies headache(s), Denies mouth pain, Denies nasal congestion, Denies neck pain and Denies sore throat Cardiovascular: Denies chest pain, Denies pedal edema, Denies palpitations and Denies dyspnea Respiratory: Denies cough and Denies dyspnea Gastrointestinal: Denies abdominal pain, Denies constipation, Denies loose stools, Denies nausea and Denies vomiting Musculoskeletal: Denies back pain, Denies myalgias, Reports arthralgias, Denies neck pain and Denies numbness Comments: Pain the BKA stump Skin/Breast: Denies new lesions and Denies rash Neurologic: Denies abnormal hearing, Denies headache(s), Denies focal weakness, Denies memory loss and Denies numbness Psychiatric: Denies anxiety, Denies depression and Denies memory loss Endocrine: Denies cold intolerance, Denies heat intolerance and Denies palpitations Hematologic/Lymphatic: Denies easy bleeding and Denies easy bruising PMFSH Medical History Medical History 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) Seizures (Chronic) HIV (human immunodeficiency virus infection) (Acute) Kidney failure (Chronic) Peritoneal dialysis catheter dysfunction (Acute) Peritoneal dialysis catheter fitting or adjustment (Acute) Surgical History Surgical History 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) S/P BKA (below knee amputation) bilateral (Chronic) Peritoneal dialysis catheter in place (Chronic) Family History Family History Mother HIV (human immunodeficiency virus infection) Social History Social History Substance History: Active Abuse Second Hand Smoke Exposure: No Smoking Status: Never smoker Tobacco Type: Cigarettes How Often Do You Have a Drink Containing Alcohol: Never Recent Travel in [facility] within the Last 8 Weeks: No Recent Out of Country Travel within the Last 8 Weeks: No Substance Abuse Detail Marijuana: Substance Use Status: Active Route Used Substance Abuse: Inhalation Substance Frequency: DAILY Reason for Use: Feels Good and Get High Immunization History Tetanus Immunization: <5 Years Tetanus Immunization Year if Known: 2018 Medications and Allergies Allergies Allergy/AdvReac Type Severity Reaction Status Date / Time amoxicillin Allergy Severe rash all Verified 02/12/18 23:37 over clindamycin Allergy Severe Desquamating Verified 02/12/18 23:37 rash penicillin G Allergy Severe Anaphylaxis Verified 02/12/18 23:37 vancomycin Allergy Severe Desqumating Verified 02/12/18 23:37 rash Home Medications Medication Instructions Recorded Confirmed Type abacavir 300 mg PO Q12H 10/07/17 04/03/18 History famotidine 20 mg PO DAILY 10/07/17 04/03/18 History lamivudine 150 mg PO DAILY 10/07/17 04/03/18 History levetiracetam [Keppra] 750 mg PO Q12H 10/07/17 04/03/18 History ondansetron HCl [Zofran] 4 mg PO TID PRN 10/07/17 04/03/18 History ritonavir 100 mg PO BID 10/07/17 04/03/18 History Active Medications: Active Medications Acetaminophen (Tylenol) 650 mg PO Q4H PRN PRN Reason: Temp > 100.4 Heparin Sodium (Porcine) (Heparin Inj) 5,000 units SQ Q8H MARIANA Last Admin: 04/03/18 05:50 Dose: 5,000 units Ondansetron HCl (Zofran Inj) 4 mg IV.PUSH Q6H PRN PRN Reason: NAUSEA OR VOMITING Sodium Chloride (Ns Flush) 2 ml IV.FLUSH UNSCH PRN PRN Reason: FLUSH AFTER USING IV ACCESS Sodium Chloride (Ns Flush) 2 ml IV.FLUSH PRN PRN PRN Reason: FLUSH AFTER USING IV ACCESS Sodium Chloride (Ns Flush) 2 ml IV.FLUSH BID MARIANA Last Admin: 04/03/18 09:58 Dose: 2 ml Physical Exam Vital signs: Last Vital Signs Temp 98.0 F 04/03/18 08:00 Pulse 63 04/03/18 08:00 Resp 12 04/03/18 08:00 BP 109/67 04/03/18 08:00 Pulse Ox 94 L 04/03/18 08:00 Intake & Output 04/01/18 04/02/18 04/03/18 04/04/18 06:59 06:59 06:59 06:59 Weight 47.627 kg 47.627 kg Narrative: GENERAL: Well-nourished well-developed male no acute distress SKIN: Warm and dry. HEAD: Atraumatic. Normocephalic. EYES: Pupils equal and round. No scleral icterus. No injection or drainage. ENT: No nasal bleeding or discharge. Mucous membranes pink and moist. NECK: Trachea midline. No JVD. CARDIOVASCULAR: Regular rate and rhythm. RESPIRATORY: No accessory muscle use. Clear to auscultation. Breath sounds equal bilaterally. GASTROINTESTINAL: Abdomen soft, non-tender, nondistended. No redness surrounding the peritoneal catheter, normoactive bowel sounds MUSCULOSKELETAL: Bilateral BKA stump shows no open wounds, small calluses surrounding the lower area. No significant pain on palpation, left below the elbow amputation NEUROLOGICAL: Awake and alert. No obvious cranial nerve deficits. Motor grossly within normal limits. Five out of 5 muscle strength in the arms and legs. Normal speech. PSYCHIATRIC: Appropriate mood and affect; insight and judgment normal. Results Labs CBC & Chem 7: 04/03/18 02:33 04/03/18 02:33 Imaging Impressions Chest X-Ray 04/03/18 02:16 CONCLUSION: No acute cardiopulmonary disease. There is no evidence of pneumonia. Caprini VTE Risk Assessment Caprini VTE Risk Assessment: No/Low Risk (score <= 1) Caprini Risk Assessment Model: Point Value = 1 Point Value = 2 Point Value = 3 Point Value = 5 Age 41-60 Minor surgery BMI > 25 kg/m2 Swollen legs Varicose veins or History of unexplained or recurrent spontaneous Oral contraceptives or hormone replacement Sepsis (< 1 month) Serious lung disease, including pneumonia (< 1 month) Abnormal pulmonary function Acute myocardial infarction Congestive heart failure (< 1 month) History of inflammatory bowel disease Medical patient at bed rest Age 61-74 Arthroscopic surgery Major open surgery (> 45 min) Laparoscopic surgery (> 45 min) Malignancy Confined to bed (> 72 hours) Immobilizing plaster cast Central venous access Age >= 75 History of VTE Family history of VTE Factor V Leiden Prothrombin [id number] Lupus anticoagulant Anticardiolipin antibodies Elevated serum homocysteine Heparin-induced thrombocytopenia Other congenital or acquired thrombophilia Stroke (< 1 month) Elective arthroplasty Hip, pelvis, or leg fracture Acute spinal cord injury (< 1 month) Prophylaxis Regimen: Total Risk Factor Score Risk Level Prophylaxis Regimen 0-1 Low Early ambulation 2 Moderate Order ONE of the following: *Sequential Compression Device (SCD) *Heparin 5000 units SQ BID 3-4 Higher Order ONE of the following medications: *Heparin 5000 units SQ TID *Enoxaparin/Lovenox 40 mg SQ daily (WT < 150 kg, CrCl > 30 mL/min) *Enoxaparin/Lovenox 30 mg SQ daily (WT < 150 kg, CrCl > 10-29 mL/min) *Enoxaparin/Lovenox 30 mg SQ BID (WT < 150 kg, CrCl > 30 mL/min) AND/OR *Sequential Compression Device (SCD) 5 or more Highest Order ONE of the following medications: *Heparin 5000 units SQ TID (Preferred with Epidurals) *Enoxaparin/Lovenox 40 mg SQ daily (WT < 150 kg, CrCl > 30 mL/min) *Enoxaparin/Lovenox 30 mg SQ daily (WT < 150 kg, CrCl > 10-29 mL/min) *Enoxaparin/Lovenox 30 mg SQ BID (WT < 150 kg, CrCl > 30 mL/min) AND *Sequential Compression Device (SCD) Assessment and Plan (1) Peritoneal dialysis catheter dysfunction: Code(s): T85.611A - Breakdown (mechanical) of intraperitoneal dialysis catheter, initial encounter Status: Acute Plan 26-year-old male with a history of end-stage renal disease on peritoneal dialysis, HIV presents with recurrent peritoneal catheter dysfunction Recurrent peritoneal catheter dysfunction -reconsult interventional radiology for intervention, there is no signs of active infection. Discussed with IR today, Dr. Botello, we will try TPA through catheter, if this does not work will consider further intervention and manipulation on Thursday. End-stage renal diseasehis service parts coordinator Dr. Solis consulted for further recommendations. Peritoneal dialysis currently on hold due to dysfunctional peritoneal catheter. History of HIVcontinue with home abacavir and ritonavir History of seizure disorder, chronicresume Keppra and Vimpat H&P: Quality VTE Deep Vein Thrombosis/Pulmonary Embolism Present on Admission: No _ (1) Peritoneal dialysis catheter dysfunction Qualifiers: Encounter type: initial encounter Qualified Code(s): T85.611A - Breakdown ( mechanical) of intraperitoneal dialysis catheter, initial encounter
[2018-04-03] MEDS ORDERED: Lacosamide 50 MG Tablet PO SCH (11:30)
[2018-04-03] MEDS: Lacosamide 50 MG Tablet PO SCH ×2 (13:39→21:24)
[2018-04-03] MEDS: levETIRAcetam 250 MG Tablet PO SCH ×2 (13:40→23:22)
[2018-04-03] MEDS ORDERED: Cathflo Activase Inj 2 MG Vial I-CATHETER SCH (15:30)
[2018-04-03] MEDS ORDERED: Heparin 10,000 UNITS/10 ML Vial (for IV use) OTHER PRN (17:54)
--- NOTE | 2018-04-03 18:38 | MB ---
cc: Shaquille Muñiz MD DATE: 04/03/2018 REASON FOR CONSULTATION: End-stage renal disease management. HISTORY OF PRESENT ILLNESS: This is a 27-year-old male with a history of HIV, ESRD, on peritoneal dialysis, as well as childhood lymphoma, bilateral BKAs and left forearm amputation. The patient has a history of previous peritoneal catheter dysfunction. This peritoneal catheter was previously surgically manipulated and revised in 03/2017. Subsequent to that, he has had PD catheter dysfunction, which was improved after PD catheter manipulation with stiff guidewire per interventional radiology in 12/2017 as well as 02/2018. The patient presents to the emergency room last night with complaints of PD catheter not functioning. The patient apparently had his last peritoneal dialysis done on night. 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 The patient denied any fevers or chills or abdominal pains otherwise. He reports he has been compliant with his medications otherwise. Interventional radiology was consulted and then infusion of TPA was instilled into the catheter, which is being done at this point to see if this would assist with any clearance of possible fibrin. At this point, the patient is resting comfortably. He has some ongoing urine output. Denies any dyspnea or shortness of breath. His labs are otherwise stable. Nephrology was consulted for further evaluation. REVIEW OF SYSTEMS: The patient denies any fevers, chills. No nausea, no vomiting, no headaches. No dizziness. No loss of consciousness. No dysuria, no chest pains, no shortness of breath. Otherwise, review of systems negative. PAST MEDICAL HISTORY: Includes childhood lymphoma, HIV, on antiretrovirals. ESRD, on peritoneal dialysis, followed up with Dr. Solis. History of bilateral BKAs and left forearm amputation. The patient has a peritoneal dialysis catheter in place. FAMILY HISTORY: Mother with HIV. SOCIAL HISTORY: Patient with no alcohol, tobacco or drug use; however, does actively use marijuana. No other drug use. ALLERGIES: INCLUDE AMOXICILLIN, CLINDAMYCIN, PENICILLIN-G AND VANCOMYCIN. MEDICATIONS AT HOME: Include: 1. Abacavir. 2. Famotidine. 3. Lamivudine. 4. Keppra. 5. Zofran. 6. Ritonavir. PHYSICAL EXAMINATION: VITAL SIGNS: At time of evaluation, temperature 98, pulse 63, respiratory rate 12, blood pressure 109/67, pulse oximetry 94% on room air. GENERAL: Awake, alert, oriented, in no apparent distress. NECK: Soft. Supple. No lymphadenopathy. CARDIAC: Regular rate and rhythm. PULMONARY: Lungs clear to auscultation. EXTREMITIES: Bilateral BKAs. LABORATORY DATA: White count 8.4, hemoglobin 11.6, hematocrit 37.0, platelet count 281. Sodium 141, potassium 3.4, chloride 108, bicarbonate 21.8, BUN 116, creatinine 8.8, glucose 102. Chest x-ray negative for any signs of any pulmonary edema or pneumonia. ASSESSMENT AND PLAN: 1. End-stage renal disease. The patient is on peritoneal dialysis and follows up as an outpatient with Dr. Solis. He had his last peritoneal dialysis on . At this point his volume status and electrolytes are otherwise stable. Interventional Radiology was consulted for possible PD catheter manipulation as this was done previously in 12/2017 and 02/2018 with good results afterwards. Suspect possible migration of the catheter tip towards the bowel wall versus fibrin sheath formation. TPA is being infused at this point. Should the TPA help with the flow of the catheter, we will resume peritoneal dialysis here tomorrow. If there is ongoing dysfunction we will follow up with interventional radiology for possible PD catheter manipulation on Thursday or Thursday. At this point, the patient does make some small urine output. His volume status is stable and electrolytes are stable. Continue to follow up closely. Of note, this catheter has had a series of interventions with previous surgical revision in 03/[address] Sen Goins and has had 2 subsequent revisions with interventional radiology. If there is little improvement in the short-term, we may need to consider for possible surgical revision and will continue to follow up with PD catheter function for now. The patient is to follow up Dr. Solis. He will be back on Thursday. 2. Human immunodeficiency virus. Continue antiretrovirals. 3. History of seizures. Continue Keppra. 4. Childhood lymphoma, stable. Continue to monitor. Shaquille Muñiz MD DVP/ct , 05:54 PM , 06:05 PM [facility] CENTERLoraine
[2018-04-03] MEDS: Lactic Acid (Ammonium Lactate) 12% Lotion 225 GM Bottle TOPICAL SCH (21:24)
[2018-04-04] MEDS: Heparin - SQ 10,000 UNITS/ML Vial SQ SCH ×3 (05:14→21:30)
[2018-04-04 05:20] LABS: Calcium 8.3 mg/dL (8.5-10.1); Carbon Dioxide 18.8 meq/L (21.0-32.0)
[2018-04-04] MEDS ORDERED: Famotidine 20 MG Tablet PO SCH (09:00)
[2018-04-04] MEDS: Lactic Acid (Ammonium Lactate) 12% Lotion 225 GM Bottle TOPICAL SCH ×2 (09:15→20:57)
[2018-04-04] MEDS: Lacosamide 50 MG Tablet PO SCH ×2 (09:15→20:57)
--- NOTE | 2018-04-04 10:49 | P.PNIM ---
Subjective Interval history: Reports that he has no abdominal pain. No chills or fever. No other complaints. Physical Exam Vital signs: Last Vital Signs Temp 99.3 F 04/04/18 07:59 Pulse 72 04/04/18 07:59 Resp 20 04/04/18 07:59 BP 109/69 04/04/18 07:59 Pulse Ox 100 04/04/18 07:59 Intake & Output 04/02/18 04/03/18 04/04/18 04/05/18 06:59 06:59 06:59 06:59 Output Total 1375 / 1375 Balance -1375 / -1375 Weight 47.627 kg 47.6 kg Narrative: GENERAL: Well-nourished well-developed male no acute distress CARDIOVASCULAR: Regular rate and rhythm. RESPIRATORY: No accessory muscle use. Clear to auscultation. Breath sounds equal bilaterally. GASTROINTESTINAL: Abdomen soft, non-tender, nondistended. No redness surrounding the peritoneal catheter, normoactive bowel sounds MUSCULOSKELETAL: Bilateral BKA stump shows no open wounds, small calluses surrounding the lower area. No significant pain on palpation, left below the elbow amputation NEUROLOGICAL: Awake and alert to person place and time. Results Labs CBC & Chem 7: 04/03/18 02:33 04/04/18 03:57 Assessment and Plan (1) Peritoneal dialysis catheter dysfunction: Code(s): T85.611A - Breakdown (mechanical) of intraperitoneal dialysis catheter, initial encounter Status: Acute Plan 26-year-old male with a history of end-stage renal disease on peritoneal dialysis, HIV presents with recurrent peritoneal catheter dysfunction Recurrent peritoneal catheter dysfunction - TPA given yesterday and will attempt peritoneal dialysis today. Discussed with IR yesterday, Dr. Botello, we will try TPA through catheter , if this does not work will consider further intervention and manipulation on Thursday. Of note, patient has had multiple interventions with interventional radiology for peritoneal catheter manipulation and recent surgical catheter revision with Dr. Goins on March 2017. Dr. Solis will return back tomorrow to determine if patient will need another surgical revision. 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 Solis consulted for further recommendations. Discussed with Dr. Muñiz who is covering for him this weekend. Discussed with the dialysis nurse who states that peritoneal catheter is currently functioning and patient is actively going through peritoneal dialysis. History of HIVcontinue with home abacavir and ritonavir History of seizure disorder, chronicresume Keppra and Vimpat Hypokalemiasupplement. Discussed with the patient who desires to be discharged home after the peritoneal dialysis session is over at 10 PM tonight Resume home medication with no new prescription written Resume renal diet Ad álvaro. activity Follow-up with Dr. Solis. Progress Note: Quality VTE Deep Vein Thrombosis/Pulmonary Embolism Present on Admission: No _ (1) Peritoneal dialysis catheter dysfunction Qualifiers: Encounter type: initial encounter Qualified Code(s): T85.611A - Breakdown ( mechanical) of intraperitoneal dialysis catheter, initial encounter
[2018-04-04] MEDS: levETIRAcetam 250 MG Tablet PO SCH (13:02)
--- NOTE | 2018-04-04 17:43 | P.PNNP ---
Subjective Interval history: revieved TPA to PD catheter overnight PD functioning well now, tolerating PD at this time Physical Exam Vital signs: Vital Signs 04/03/18 19:32 04/03/18 23:18 04/04/18 00:05 Temperature 98.3 F 98.4 F Pulse Rate 72 78 85 Respiratory Rate 16 16 Blood Pressure 109/76 110/75 Pulse Oximetry 96 97 04/04/18 03:53 04/04/18 04:12 04/04/18 07:00 Temperature 96.9 F L Pulse Rate 81 75 71 Respiratory Rate 16 Blood Pressure 118/79 Pulse Oximetry 96 04/04/18 07:59 04/04/18 10:45 04/04/18 15:30 Temperature 99.3 F 97.8 F 97.8 F Pulse Rate 72 77 80 Respiratory Rate 20 20 20 Blood Pressure 109/69 101/65 103/76 Pulse Oximetry 100 98 98 Intake & Output 04/03/18 04/04/18 04/04/18 18:59 06:59 18:59 Output Total 375 / 375 1000 / 1000 500 / 500 Balance -375 / -375 -1000 / -1000 -500 / -500 Weight 47.627 kg 47.6 kg Output: Urine 375 / 375 1000 / 1000 500 / 500 Other: Date of Last Bowel Movement 04/02/17 Weight On Admission 47.627 kg - Constitutional no acute distress - Routine HEENT Exam Head: Present: normocephalic Eye: Present: EOMI ENT: Present: mucous membranes moist - Routine Neck Exam Present: supple - Routine Respiratory Exam Present: CTA bilaterally - Routine Cardiovascular Exam Present: RRR - Routine Abdominal Exam Present: soft - Routine Exam Perineum Description: Intact - Routine Extremities Exam Present: amputation - Routine Skin Exam Present: intact - Routine Neurological Exam Present: alert, oriented X3 - Detailed Neurological Exam: Coma Scale Eye Opening: Spontaneous - Routine Psychiatric Exam Present: normal affect Assessment and Plan - Assessment (1) End-stage renal disease on peritoneal dialysis Code(s): N18.6 - End stage renal disease; Z99.2 - Dependence on renal dialysis Status: Acute Plan: 1. End-stage renal disease. The patient is on peritoneal dialysis and follows up as an outpatient with Dr. Solis. He had his last peritoneal dialysis on . PD catheter now functioning - likely fibrin sheath cleared with overnight TPA dwell. Tolerating PD at this time, ok for d/c after PD treatment ends this evening Continue to follow outpatient with Dr. Solis. (2) Peritoneal dialysis catheter dysfunction Code(s): T85.611A - Breakdown (mechanical) of intraperitoneal dialysis catheter , initial encounter Status: Acute Plan: improved post TPA dwell Of note, this catheter has had a series of interventions with previous surgical revision in 03/[address] Sen Goins and has had 2 subsequent revisions with interventional radiology. (3) Seizure Code(s): R56.9 - Unspecified convulsions Status: Chronic Plan: continue medications (4) HIV disease Code(s): B20 - Human immunodeficiency virus [HIV] disease Status: Chronic Plan: continue medications
[2018-04-04 20:05] VITALS: BP 117/92; PULSE 67; RESP 14; TEMP 98.5; O2SAT 99
== END 2018-04-04 23:04 | disposition home or self-care (01) ==
LOC: NEDA 01:43 → NEPE 01:43 → NEPHCDU 06:31
PROVIDERS: ADMIT Hospitalist; ATTEND Hospitalist
DX: T85.611A Breakdown (mechanical) of intraperitoneal dialysis catheter, initial encounter; C85.90 Non-Hodgkin lymphoma, unspecified, unspecified site; N17.9 Acute kidney failure, unspecified; E87.6 Hypokalemia; Z99.2 Dependence on renal dialysis; Z89.512 Acquired absence of left leg below knee; F12.90 Cannabis use, unspecified, uncomplicated; Z89.511 Acquired absence of right leg below knee; G40.909 Epilepsy, unspecified, not intractable, without status epilepticus; F17.210 Nicotine dependence, cigarettes, uncomplicated; Z88.0 Allergy status to penicillin; N18.6 End stage renal disease; Z88.1 Allergy status to other antibiotic agents; B20 Human immunodeficiency virus [HIV] disease
CPT/HCPCS: 71010; 71045; 80048; 85025; 90935; 99285; G0378; J1644; J2997